=== PATIENT | female | born 1945 | race Caucasian/White ===

== ENCOUNTER → 2021-07-14 13:54 | Outpatient (CLI) | payer MEDICARE, OTHER, SELFPAY ==
--- NOTE | ~2021-07-14 | XR_ITS ---
XR chest 2V 07/14/2021 14:13 Indication: Hypertension Procedure: 2 view chest Comparison: No prior studies for comparison. Findings: There are calcified granulomas in the left midlung. Heart size normal. No focal air space d isease, pulmonary edema, pleural effusion or suspected pneumothorax. The lungs are hyperinflated whic h is consistent with, but not diagnostic of chronic obstructive pulmonary disease. Impression: 1: No acute cardiopulmonary disease. Reviewed, dictated and finalized at location A. Impression: 1: No acute cardiopulmonary disease.
== END ==
PROVIDERS: PCP Family Medicine; Visit Provider Family Medicine
DX: I10 Essential (primary) hypertension (principal)
CPT/HCPCS: 71046

== ENCOUNTER 2021-07-19 09:04 | Outpatient (CLI) | payer MEDICARE, OTHER, SELFPAY ==
--- NOTE | 2021-07-19 09:34 | ECG_ITS ---
Measurements Intervals [place] Rate: 67 P: 66 NC: 160 QRS: 52 QRSD: 93 T: 57 QT: 416 QTc: 442 Interpretive Statements SINUS RHYTHM LEFT VENTRICULAR HYPERTROPHY AND ST-T CHANGE [VOLTAGE CRITERIA PLUS ST/T ABNORMALITY] ABNORMAL ECG NO PREVIOUS ECG AVAILABLE FOR COMPARISON Electronically Signed On 07-19-2021 17:24:50 CDT by Neftali Espinosa M.D.
== END 2021-07-19 09:05 | disposition home or self-care (01) ==
LOC: ANHLAB 09:07
PROVIDERS: PCP Family Medicine; Visit Provider Family Medicine
DX: I10 Essential (primary) hypertension (principal)
CPT/HCPCS: 93005

== ENCOUNTER 2021-09-13 00:50 | Day surgery (SDC) | payer MEDICARE, OTHER, SELFPAY ==
[2021-08-30 13:33] VITALS: BMI 24.2
[2021-09-13 07:31] VITALS: BP 135/67; PULSE 80; RESP 18; TEMP 36.1; O2SAT 100
[2021-09-13] MEDS: LACTATED RINGERS 1,000 ML 150 ML IV CONT (07:42)
--- NOTE | 2021-09-13 07:53 | WPDGICN ---
Assessment and Plan Assessment and plan (1) Colon cancer screening: Code(s): Z12.11 - Encounter for screening for malignant neoplasm of colon Status: Acute Assessment and Plan: Patient presents for screening colonoscopy. Last colonoscopy 10 years ago was unremarkable. Patient appears at average risk for colon polyps. Further recommendations may be given after endoscopy. GI Consult Note Consult date/time: 09/13/21 07:53 HPI: Cele Salcido is a 75 year old female Presents for screening colonoscopy today. Patient reports that her current weight appetite and bowel movements are normal. She denies abdominal pain. She has had no bleeding. Family history is noncontributory. Patient states that she had a unremarkable colonoscopy 10 years ago. She presents today for neoplasia screening. Review of Systems Review of Systems: Review of systems noncontributory. [facility] Past Medical History Medical History (Updated 08/11/21 @ 15:59 by Davin Estrada MD) BMI 25.0-25.9,adult Breast cancer screening by mammogram Chronic neck pain Colon cancer screening Colonoscopy normal [address] Garcia. Episodic lightheadedness Essential hypertension (~04/2021) Chest x-ray 07/14/2021 with calcified granulomas and mild hyperinflation. EKG on 07/19/2021 with sinus rhythm with LVH and nonspecific ST T wave changes. Low back pain Overweight (BMI 25.0-29.9) Plantar fasciitis, bilateral Postmenopausal Rash of neck Seasonal allergic rhinitis Family History Family History (Updated 12/10/18 @ 10:51 by DOCTOR UNKNOWN) Father Family history of cardiovascular disease, Onset Age: 92 Mother Family history of Alzheimer's disease, Onset Age: 95 Social History Social History Smoking status: Never smoker Alcohol intake: current Drinks per week: 7 Alcohol use details: a glass of wine 3-4 times a week Substance use: never Substance use type: does not use Living arrangements: with family Spiritual care concerns: No Meds Home Medications and Allergies Home Medications Medication Instructions Recorded Confirmed Type aspirin 81 mg tablet,delayed 81 mg PO DAILY 04/28/20 08/30/21 History release (Adult Low Dose Aspirin) cholecalciferol (vitamin D3) 50 2,000 unit PO DAILY 04/28/20 08/30/21 History mcg (2,000 unit) capsule cyanocobalamin (vitamin B-12) 1,000 mcg PO DAILY 04/28/20 08/30/21 History 1,000 mcg tablet prenat.vits,molina,[id number]-ifcqf 1 tablet PO DAILY 04/28/20 08/30/21 History vitamin E (dl, acetate) 180 mg 400 unit PO DAILY 04/28/20 08/30/21 History (400 unit) capsule cyclobenzaprine 10 mg tablet 10 mg PO TID PRN muscle spasm #60 06/02/21 08/30/21 Rx tabs naproxen 500 mg tablet (Naprosyn) 500 mg PO BID PRN pain #60 tabs 06/02/21 08/30/21 Rx losartan 100 mg tablet 100 mg PO DAILY #90 tabs 09/12/21 09/13/21 Rx Allergies Allergy/AdvReac Type Severity Reaction Status Date / Time No Known Allergies Allergy Verified 09/13/21 07:30 Vital Signs Vital Signs - 24 hr 09/13/21 07:31 Temperature 97.0 F L Pulse Rate 80 Respiratory Rate 18 Blood Pressure 135/67 Pulse Oximetry 100 Oxygen Delivery Room Air Exam Narrative: Physical exam reveals patient be alert. Vital signs stable. HEENT exam is unremarkable. Patient is anicteric. Lungs are clear to auscultation and percussion. Heart is without murmur or extra sounds. Abdominal exam bowel sounds are present soft nontender with no organomegaly. Digital external rectal exam is normal.
--- NOTE | 2021-09-13 08:00 | WPDANESEPPF ---
Anes - Initial Pre Proc Eval Procedure: Operation Date: 09/13/21 08:30 Proposed Procedures p Screening Colonoscopy - Tristan Agosto MD Date/Time: 09/13/21 08:00 Surgeon: Tristan Agosto MD Pre Op Diagnosis: neoplasm screening Patient Data Age: 75 Gender: F Height: 1.57 m Weight: 58.5 kg Last Vital Signs Temp 36.1 C L 09/13/21 07:31 Pulse 80 09/13/21 07:31 Resp 18 09/13/21 07:31 BP 135/67 09/13/21 07:31 Pulse Ox 100 09/13/21 07:31 O2 Del Method Room Air 09/13/21 07:31 Allergies Allergy/AdvReac Type Severity Reaction Status Date / Time No Known Allergies Allergy Verified 09/13/21 07:30 Home Medications Medication Instructions Recorded Confirmed Type aspirin 81 mg tablet,delayed 81 mg PO DAILY 04/28/20 08/30/21 History release (Adult Low Dose Aspirin) cholecalciferol (vitamin D3) 50 2,000 unit PO DAILY 04/28/20 08/30/21 History mcg (2,000 unit) capsule cyanocobalamin (vitamin B-12) 1,000 mcg PO DAILY 04/28/20 08/30/21 History 1,000 mcg tablet prenat.vits,molina,mzq-ydaa-hlwug 1 tablet PO DAILY 04/28/20 08/30/21 History vitamin E (dl, acetate) 180 mg 400 unit PO DAILY 04/28/20 08/30/21 History (400 unit) capsule cyclobenzaprine 10 mg tablet 10 mg PO TID PRN muscle spasm #60 06/02/21 08/30/21 Rx tabs naproxen 500 mg tablet (Naprosyn) 500 mg PO BID PRN pain #60 tabs 06/02/21 08/30/21 Rx losartan 100 mg tablet 100 mg PO DAILY #90 tabs 09/12/21 09/13/21 Rx Patient hx anesthesia problems: none Family hx anesthesia problems: none Results Review: All pre-operative results and documents have been reviewed as part of the pre-operative evaluation. [facility] Past Medical History Medical History BMI 25.0-25.9,adult Breast cancer screening by mammogram Chronic neck pain Colon cancer screening Colonoscopy normal [address] Garcia. Episodic lightheadedness Essential hypertension (~04/2021) Chest x-ray 07/14/2021 with calcified granulomas and mild hyperinflation. EKG on 07/19/2021 with sinus rhythm with LVH and nonspecific ST T wave changes. Low back pain Overweight (BMI 25.0-29.9) Plantar fasciitis, bilateral Postmenopausal Rash of neck Seasonal allergic rhinitis Family History Family History Father Family history of cardiovascular disease, Onset Age: 92 Mother Family history of Alzheimer's disease, Onset Age: 95 Social History Social History Smoking status: Never smoker Alcohol intake: current Drinks per week: 7 Alcohol use details: a glass of wine 3-4 times a week Substance use: never Substance use type: does not use Living arrangements: with family Spiritual care concerns: No Anes - Eval Final PreProcedure Day of Procedure 09/13/21 08:00 Heart: regular rate and rhythm Lungs: clear to auscultation Neurological: alert and oriented ASA classification: II Emergent: yes Anesthetic plan: proceed Anesthesia type and monitoring: general Results Review: All pre-operative results and documents have been reviewed as part of the pre-operative evaluation. Informed Consent: The patient's anesthetic plan and its attendant risks and benefits were discussed with the patient/family/POA. Questions were solicited and answers provided to the satisfaction of the patient/family/POA.
[2021-09-13 08:45] VITALS: BP 119/56; PULSE 80; RESP 18; O2SAT 100
[2021-09-13 08:55] VITALS: BP 118/53; PULSE 80; RESP 18; O2SAT 100
[2021-09-13 09:05] VITALS: BP 148/84; PULSE 77; RESP 18; O2SAT 100
== END 2021-09-13 09:25 | disposition home or self-care (01) ==
PROVIDERS: PCP Family Medicine; Visit Provider Internal Medicine Gastroenterology
PROC: 0DJD8ZZ Inspection of Lower Intestinal Tract, Via Natural or Artificial Opening Endoscopic (ICD-10-PCS; CPT 45378; principal; 2021-09-13 08:30)
DX: Z12.11 Encounter for screening for malignant neoplasm of colon (principal); K64.8 Other hemorrhoids; Z79.82 Long term (current) use of aspirin; I10 Essential (primary) hypertension
CPT/HCPCS: G0121; J2704; J7120

== ENCOUNTER 2021-11-12 09:25 | Outpatient (CLI) | payer MEDICARE, OTHER, SELFPAY ==
--- NOTE | ~2021-11-12 | DEXA_ITS ---
Bone Density Report Name: KENDY CRAIG Age: 75 Sex: Female Ethnicity: White Date of : 1945 Indication: postmenopausal; screening for osteoporosis; height loss; cancer; hysterectomy; Referring Provider: VENICE JOHNSON Study: Bone densitometry was performed. Exam Date: November 12, 2021 Accession number: [id number] Bone Density: Region BMD T-score Z-score Classification AP Spine(L1-L4) 0.962 -0.8 1.7 Normal Femoral Neck (Left) 0.715 -1.2 0.9 Osteopenia Total Hip (Left) 0.940 0.0 1.8 Normal Femoral Neck (Right) 0.753 -0.9 1.3 Normal Total Hip (Right) 0.935 -0.1 1.8 Normal Total Hip Mean 0.938 -0.1 1.8 Normal World Health Organization criteria for BMD impression classify patients as: Normal (T-score at or above -1.0), Osteopenia (T-score between -1.0 and -2.5), or Osteoporosis (T-score at or below -2.5). 10-year Fracture Risk(1): Major Osteoporotic Fracture 11% Hip Fracture 1.9% Reported Risk Factors: [place] (), Neck BMD=0.715, BMI=24.7 (1) FRAX(R) Version 3.08. Fracture probability calculated for an untreated patient. Fracture probability may be lower if the patient has received treatment. Clinical Information Provided by Patient: Has used the following medications: Vitamin D, Calcium Has the following medical conditions: Cancer, Hysterectomy Patient maximum height was 64 Menopause Age: 40 Onset of menses at age 12 Number of children 2 Impression: The patient has low bone mass, based on the Left Femoral Neck T-score. The patient has an estimated ten-year risk of hip fracture of 1.9% and an estimated ten-year risk of major fracture of 11%, based on the WHO FRAX algorithm. Discussion: BONE DENSITY IS LOW AT ONE OR MORE SKELETAL SITES. This patient's lowest T-score is low at one or more skeletal sites. It meets the World Health Organization's (WHO) criteria for ?low bone mass? (T-score between -1.0 and -2.5). The patient's 10-year risk of fracture as calculated by FRAX is less than the threshold where pharmacological therapy is recommended by the National Osteoporosis Foundation (NOF). However, all treatment decisions require clinical judgment and consideration of individual patient factors, including patient preferences, comorbidities, previous drug use, risk factors not captured in the FRAX model (e.g., frailty, falls, vitamin D deficiency, increased bone turnover, interval significant decline in bone density) and possible under or overestimation of fracture risk by FRAX. The patient should follow a healthful lifestyle (good nutrition with adequate calcium and vitamin D, and appropriate weight-bearing exercise). Follow-Up: Consider repeating this study in 2 to 3 years to reassess this patient's status, or sooner if there is some new clinical indication.
== END 2021-11-12 09:26 | disposition home or self-care (01) ==
LOC: ANHIMG 09:26
PROVIDERS: PCP Family Medicine; Visit Provider Family Medicine
DX: Z78.0 Asymptomatic menopausal state (principal); M85.852 Other specified disorders of bone density and structure, left thigh
CPT/HCPCS: 77080

== ENCOUNTER 2022-02-07 08:20 | Outpatient (CLI) | payer MEDICARE, OTHER, SELFPAY ==
--- NOTE | ~2022-02-07 | XR_ITS ---
EXAMINATION: XR cervical spine 4-5V DATE: 02/07/2022 08:57 INDICATION: Neck pain. TECHNIQUE: 5 views of cervical spine were obtained. COMPARISON: None. FINDINGS: There is 2 mm anterolisthesis of C3 on C4 and C7 on T1. There is 7 degrees levocurvature of cervicothoracic spine. Vertebral body heights are normal. There is severely decreased disc height at C4-C5, moderately decreased disc height at C5-C6, and severely decreased disc height at C6-C7. There is severe uncovertebral joint osteoarthritis on the right at C4-C5 and bilaterally at C5-C6 and C6-C 7. There is multilevel mild to moderate facet joint osteoarthritis. There is mild central canal steno sis at C3-C4, C4-C5, C5-C6, and C6-C7. No prevertebral soft tissue swelling. IMPRESSION: 1. Severe cervical spondylosis. Reviewed, dictated and finalized at location B.
--- NOTE | ~2022-02-07 | XR_ITS ---
EXAMINATION: XR thoracic spine 3V DATE: 02/07/2022 08:57 INDICATION: Thoracic back pain TECHNIQUE: AP, lateral and lateral swimmer's views of the thoracic spine were obtained. COMPARISON: None. FINDINGS: Bone alignment is normal. There is no fracture. There is mild loss of intervertebral disc s pace height at multiple levels in the thoracic spine. Small degenerative osteophytes project from the anterior endplates of multiple vertebral bodies. Moderate cervical spondylosis is noted. IMPRESSION: 1. Moderate thoracic spondylosis without acute findings. Reviewed, dictated and finalized at location A.
--- NOTE | ~2022-02-07 | XR_ITS ---
EXAMINATION: XR lumbar spine min 4V DATE: 02/07/2022 08:57 INDICATION: Low back pain. TECHNIQUE: 5 views of lumbar spine were obtained. COMPARISON: None. FINDINGS: There is 17 degrees levoscoliosis of lumbar spine. There is 5 mm anterolisthesis of L4 on L 5. Vertebral body heights are normal. There is severely decreased disc height at L2-L3, mildly decrea sed disc height at L3-L4, and moderately decreased disc height at L4-L5. There is severe facet joint osteoarthritis in lower lumbar spine. IMPRESSION: 1. Severe lumbar spondylosis. 2. Lumbar levoscoliosis. Reviewed, dictated and finalized at location B.
== END 2022-02-07 08:21 | disposition home or self-care (01) ==
PROVIDERS: PCP Family Medicine; Visit Provider Family Medicine
DX: M47.894 Other spondylosis, thoracic region (principal); M47.896 Other spondylosis, lumbar region; M47.892 Other spondylosis, cervical region
CPT/HCPCS: 72050; 72072; 72110

== ENCOUNTER 2022-02-26 08:46 | Outpatient (CLI) | payer MEDICARE, OTHER, SELFPAY ==
--- NOTE | ~2022-02-26 | MR_ITS ---
EXAMINATION: MR cervical spine wo con DATE: 02/26/2022 09:20 INDICATION: Neck pain. Bilateral cervical radiculitis. TECHNIQUE: Magnetic resonance imaging (MRI) of the cervical spine was performed without intravenous c ontrast. Sequences included sagittal T2-weighted FSE, sagittal T2-weighted FS FSE, sagittal T1-weight ed FSE, axial MERGE, and axial T2-weighted FSE. COMPARISON: Lumbar spine radiographs 02/07/2022 FINDINGS: There is 2 mm anterolisthesis of C3 on C4 and 3 mm anterolisthesis of T1 on T2. Vertebral b jj heights are normal. There is mildly decreased disc height at C3-C4, severely decreased disc heigh t at C4-C5, moderately decreased disc height at C5-C6, and severely decreased disc height at C6-C7 wi th endplate remodeling. The spinal cord signal intensity is normal. The following disc levels are spe cifically discussed: C2-C3: There is a central protrusion. There is no uncovertebral joint osteoarthritis. There is severe right and moderate left facet joint osteoarthritis. There is no neural foraminal stenosis. There is no central canal stenosis. C3-C4: There is a central protrusion. There is moderate right and severe left uncovertebral joint ost eoarthritis. There is severe bilateral facet joint osteoarthritis. There is mild bilateral neural for aminal stenosis. There is mild central canal stenosis. C4-C5: The disc is bulging. There is severe bilateral uncovertebral joint osteoarthritis. There is mo derate bilateral facet joint osteoarthritis. There is mild bilateral neural foraminal stenosis. There is mild central canal stenosis. C5-C6: The disc is bulging. There is severe bilateral uncovertebral joint osteoarthritis. There is mi ld bilateral facet joint osteoarthritis. There is moderate bilateral neural foraminal stenosis. There is mild central canal stenosis. C6-C7: The disc is bulging. There is severe bilateral uncovertebral joint osteoarthritis. There is mo derate bilateral facet joint osteoarthritis. There is moderate bilateral neural foraminal stenosis. T here is mild central canal stenosis. C7-T1: The disc does not extend beyond the endplate margin. There is no uncovertebral joint osteoarth ritis. There is severe bilateral facet joint osteoarthritis. There is mild bilateral neural foraminal stenosis. There is no central canal stenosis. IMPRESSION: 1. Severe cervical spondylosis. Reviewed, dictated and finalized at location A. TING MACHINE FIXER HEAD
== END 2022-02-26 08:47 | disposition home or self-care (01) ==
PROVIDERS: PCP Family Medicine; Visit Provider Family Medicine
DX: M54.2 Cervicalgia (principal); M48.02 Spinal stenosis, cervical region; M47.892 Other spondylosis, cervical region
CPT/HCPCS: 72141

== ENCOUNTER 2022-04-07 12:30 | Outpatient (RCR) | payer MEDICARE, OTHER, SELFPAY ==
--- NOTE | 2022-03-07 09:03 | PTOPEVAL1 ---
Assessment and note entered by Suzanne Carvajal, PT Evaluation Information Diagnosis thoracic pain, lumbar pain, other chronic pain Onset August 2021 Subjective Information gradual increase in pain; no injury or trauma to back; have been to chiropractor for back and neck pain about every 6 weeks or so; x rays report lumbar severe lumbar spondylosis with levoscoliosis and thoracic moderate spondylosis; go to fitness center 2x/wk for weight exercises and ride bicycle and walk 3x/wk, 2-3 miles; Oswestry low back functional score 16% limitation; can do everything at home but the heavier lifting; does things then rests; Reported Pain Level Pain Score Self Report Additional Pain Score Comments pain range of 0-6/10; dull pain--thoracic, scapular, back; decrease pain with advil,2x/day, heat, rest, tennis ball in back for pressure; have naproxen- not really help; increase pain with lifting, when reading and sitting--have pillows in lap; sleeping OK; when first wake up in the morning- feel OK if have not overdone it; Assessment PT Clinical Summary Cele has the diagnosis of thoracic and lumbar pain; She reports chronic issues with back and neck pain that have increased over time, without trauma or injury. Self assessment Oswestry back score is 16% limitation in activity. She is active and does regular fitness exercises at the gym for light resisted exercises, bicycle and walking. Discussed with her aquatic exercises as an option--she has not done them in the past. Cele has a good understanding of activity/rest balance and monitor her activity level to manage her pain. And realizes the importance of exercises and moving with arthritis. Her thoracic and lumbar xrays reports moderate to severe spondylosis and lumbar levoscoliosis. With the evaluation, she has good flexibility of trunk and hips, with slight tightness over cervical rotation; good strength of legs, with decreased scapular and abdominal strength; there are spasms and most tenderness over R thoracic area. Skilled PT services are indicated for modalities to decrease pain; therapeutic exercises to strengthen her hfdhqkcd-msiqyzwx-uzrbmepy areas, to improve positioning and education for progression of HEP and posture. Treatment with emphasis on cervi
--- NOTE | 2022-04-07 13:14 | PTOPDC ---
Assessment and note entered by Suzanne Carvajal, PT Evaluation Information Diagnosis thoracic pain, lumbar pain, other chronic pain Onset August 2021 Subjective Information Cele reports: is pleased with how therapy has been; no pain in her neck for the past week; have been busy and not reading much lately; no problems with driving; continues to do her exercises at home and goes to the fitness center 3-4 x/week using the weight equipment; agrees to discharge from therapy. Reported Pain Level Pain Score 0: Self Report Assessment PT Clinical Summary Cele has received 7 PT sessions. Compared to the initial evaluation: pain is now 0/ 10 in her neck for the past week; no problems with driving, turning her head, reading; increased cervical rotation to the L and is not painful; increase strength of cervical-thoracic musculature; no longer has forward rotation of her R shoulder and trunk in standing; improved posture awareness and indep with HEP. The goals were achieved. Discharge PT services. Plan of Care PT Services Indicated No
== END 2022-04-10 13:29 | disposition home or self-care (01) ==
LOC: ANHPT 12:30
PROVIDERS: PCP Family Medicine; Visit Provider Family Medicine
DX: M54.2 Cervicalgia (principal); M54.6 Pain in thoracic spine; G89.29 Other chronic pain
CPT/HCPCS: 97110; 97140; 97162

== ENCOUNTER 2022-06-13 09:25 | Outpatient (CLI) | payer MEDICARE, OTHER, SELFPAY ==
--- NOTE | ~2022-06-13 | XR_ITS ---
XR knee LT 3V 06/13/2022 09:54 Indication: Chronic knee pain Procedure: 3 views left knee Comparison: No prior studies for comparison. Findings: There is mild-moderate tricompartment osteoarthritis. No fracture, subluxation or dislocati on. No significant joint effusion. Impression: 1: Mild-moderate osteoarthritis of the left knee. Reviewed, dictated and finalized at location L. ERSITY LECTURER Impression: 1: Mild-moderate osteoarthritis of the left knee.
== END 2022-06-13 09:26 | disposition home or self-care (01) ==
PROVIDERS: PCP Family Medicine; Visit Provider Family Medicine
DX: M17.12 Unilateral primary osteoarthritis, left knee (principal); M25.562 Pain in left knee
CPT/HCPCS: 73562

== ENCOUNTER 2023-04-12 07:58 | Emergency (ER) | payer MEDICARE, OTHER, SELFPAY ==
[2023-04-12] VITALS (73 sets, daily range): BP systolic 91–163; BP diastolic 56–88; PULSE 64–208; RESP 12–21; TEMP 36.1–37.2; O2SAT 92–100
--- NOTE | ~2023-04-12 | XR_ITS ---
Portable chest x-ray Comparison: 07/14/2021 Clinical History: Tachycardia Findings: Stable calcified left midlung granuloma. Lungs are otherwise clear. Cardiomediastinal nadine houette is stable. Bones and soft tissues are unremarkable. Impression: No significant abnormality. Reviewed, dictated and finalized at [facility]. UNTS RECEIVABLE BOOKKEEPER Impression: No significant abnormality.
--- NOTE | 2023-04-12 08:19 | ECG_ITS ---
Measurements Intervals [place] Rate: 199 P: [place]: 0 QRS: -35 QRSD: 93 T: 129 QT: 217 QTc: 395 Interpretive Statements SUPRAVENTRICULAR TACHYCARDIA/TYPE UNSPECIFIED CONSIDER INFERIOR WALL MO AGE UNDETERMINED ABNORMAL ECG COMPARED TO ECG 07/19/2021 09:48:22 SVT REPLACES SINUS RHYTHM INFERIOR WALL INFARCTION IS EVIDENT Electronically Signed On 04-12-2023 18:17:13 COMPUTER REPAIR ENGINEER by Neftali Espinosa M.D.
[2023-04-12 08:34] LABS: Basophils Absolute Auto 0.04 K/mm3 (0.00-0.10); Basophils Percent Auto 0.7 % (0.0-1.0); Eosinophils Absolute Auto 0.05 K/mm3 (0.02-0.50); Eosinophils Percent Auto 0.8 % (1.0-6.0); Hematocrit 41.6 % (35.0-42.0); Hemoglobin 13.6 g/dL (11.7-13.8); Immature Granulocyte Absolute 0.02 K/mm3 (0.00-0.00); Immature Granulocyte Percent A 0.3 % (0.0-0.0); Lymphocytes Absolute Auto 1.05 K/mm3 (1.10-4.50); Lymphocytes Percent Auto 17.2 % (18.0-42.0); Mean Corpuscular HGB Conc 32.7 g/dL (32.0-36.0); Mean Corpuscular Hemoglobin 32.5 pg (27.0-31.0); Mean Corpuscular Volume 99.5 fL (78.0-102.0); Mean Platelet Volume 9.8 fl (9.2-11.8); Monocytes Absolute Auto 0.33 K/mm3 (0.10-0.90); Monocytes Percent Auto 5.4 % (2.0-11.0); Neutrophils Absolute Auto 4.6 K/mm3 (1.7-7.2); Neutrophils Percent Auto 75.6 % (50.0-70.0); Platelet Count Result 235 K/mm3 (150-420); Red Blood Count 4.18 M/mm3 (4.20-5.40); White Blood Count 6.1 K/mm3 (4.8-10.8)
[2023-04-12] MEDS: SODIUM CHLORIDE 0.9% IV 1,000 ML 999 ML IV CONT (08:36)
[2023-04-12] MEDS: MIDAZOLAM HCL (*CRX) 2 MG/2 ML VIAL 1 MG IV PUSH (08:56)
[2023-04-12 09:00] LABS: Alanine Aminotransferase 47 U/L (14-59); Albumin Level 3.7 g/dL (3.4-5.0); Alkaline Phosphatase 58 U/L (46-116); Anion Gap 10 mmol/L (8-16); Aspartate Amino Transferase 29 U/L (15-37); Bilirubin,Total 0.4 mg/dL (0.00-1.00); Blood Urea Nitrogen 16 mg/dL (7-18); Calcium 9.3 mg/dL (8.5-10.1); Carbon Dioxide 27 mmol/L (21-32); Chloride 100 mmol/L (98-108); Estimated CRCL calculation 31 ml/min; Estimated Glomerular Filt Rate 50; Glucose 166 mg/dL (70-99); Lipase 41 U/L (16-77); NT Pro B Type Natriuretic Pept 1496 pg/mL (0-450); Osmolality Calculated 289 mOsm/kg (285-295); Potassium 3.8 mmol/L (3.5-5.1); Sodium 137 mmol/L (136-145); Total Protein 7.2 g/dL (6.4-8.2); Troponin I 54.6 ng/L (0.00-60.4)
[2023-04-12 09:04] LABS: D Dimer 0.31 mg/L (0.19-0.50)
[2023-04-12 09:15] LABS: SARS-CoV-2 RNA PCR Negative (Negative)
[2023-04-12 09:18] LABS: Influenza A QL RT-PCR Negative (Negative); Influenza B QL RT-PCR Negative (Negative); RSV RNA, RT-PCR Negative (Negative)
[2023-04-12 09:32] LABS: Thyroid Stimulating Hormone 2.69 uIU/mL (0.36-3.74)
--- NOTE | 2023-04-12 09:39 | ED.NAVMDI ---
HPI - Nausea/Vomiting/Diarrhea General Chief complaint: Nausea/Vomiting/Diarrhea Stated complaint: nausea, dizzy Source: patient and family Mode of arrival: ambulatory Limitations: no limitations History of Present Illness HPI Narrative: this is a 77-year-old female with no significant prior past medical history presents with some nausea and episode of vomiting with a heart rate 203, initial blood pressure systolic in the 90s O2 sats 97% resp rate of 16, denies any chest pain or shortness of breath, no abdominal pain with no dysuria. The patient has no fever chills did have an episode of nausea and vomiting. patient has no history of cardiovascular disease, is non smoker never did smoke and has approximately 5 drinks of wine per week and 2 to 3 cups of coffee per day. MD elicited complaint: nausea Onset (ago): hour(s) Associated nausea: Yes Associated abdominal pain: No Related Data Home Medications Medication Instructions Recorded Confirmed cholecalciferol (vitamin D3) 50 2,000 unit PO DAILY 04/28/20 04/12/23 mcg (2,000 unit) capsule cyanocobalamin (vitamin B-12) 1,000 mcg PO DAILY 04/28/20 04/12/23 1,000 mcg tablet vitamin E (dl, acetate) 180 mg 400 unit PO DAILY 04/28/20 04/12/23 (400 unit) capsule acetaminophen 650 mg 650 mg PO . q.h.s. 02/26/23 04/12/23 tablet,extended release (Tylenol Arthritis Pain) Allergies Allergy/AdvReac Type Severity Reaction Status Date / Time Amitriptyline AdvReac Severe Nausea and Uncoded 04/25/22 08:29 Vomiting Review of Systems Review of Systems: All systems reviewed & are unremarkable except as noted in HPI and below PMFSH Past Medical History Medical History Acute pain of left knee (~05/2022) Znkh-az-mojeixvy osteoarthritis left knee on x-ray on 06/13/2022. At moderate risk for fall (~08/14/22) the patient worries about falling, but has excellent balance and has not fallen BMI 24.0-24.9, adult BMI 25.0-25.9,adult Breast cancer screening by mammogram normal mammogram 07/25/2021. mammogram 09/11/2022 normal. Cervical radiculitis MRI of the cervical spine on 02/26/2022 reveals severe cervical spondylosis Cervical spinal stenosis Chronic anxiety Chronic neck pain X-ray on 02/07/2022 reveals severe cervical spondylosis and facet arthritis with diffuse mild spinal stenosis. Chronic thoracic back pain x-ray on 02/07/2022 reveals moderate degenerative disc disease and arthritis. Colon cancer screening Colonoscopy normal [address] Garcia. normal colonoscopy 09/13/[address] Agosto with no need for repeat. Episodic lightheadedness Essential hypertension (~04/2021) Chest x-ray 07/14/2021 with calcified granulomas and mild hyperinflation. EKG on 07/19/2021 with sinus rhythm with LVH and nonspecific ST T wave changes. Insomnia (~2021) Low back pain X-ray on 02/07/2022 reveals severe spondylosis and facet arthropathy. Osteopenia after menopause (11/12/21) DEXA bone density study on 11/12/2021 reveals T-score -0.8 at the spine with left femoral neck low at -1.2 with left total hip 0.0 with right total hip -0.1. Normal except for mild osteopenia of the left femoral neck. Overweight (BMI 25.0-29.9) Plantar fasciitis, bilateral Postmenopausal Rash of neck Seasonal allergic rhinitis Family History Family History Father Family history of cardiovascular disease, Onset Age: 92 Mother Family history of Alzheimer's disease, Onset Age: 95 Social History Social History Smoking status: Never smoker Alcohol intake: current Drinks per week: 7 Alcohol use details: a glass of wine 3-4 times a week Substance use: never Substance use type: does not use Lack of Transportation: No Lack of Food: Never True Current Housing: I Have Housing Concerned About Future Housin
--- NOTE | 2023-04-12 09:52 | ECG_ITS ---
Measurements Intervals [place] Rate: 78 P: 69 [place]: 161 QRS: 71 QRSD: 93 T: 60 QT: 402 QTc: 460 Interpretive Statements SINUS RHYTHM LEFT VENTRICULAR HYPERTROPHY AND ST-T CHANGE [VOLTAGE CRITERIA PLUS ST/T ABNORMALITY] ABNORMAL ECG COMPARED TO ECG 04/12/2023 08:25:28 SINUS RHYTHM REPLACES SVT WITH SINUS RHYTHM THERE IS NO LONGER EVIDENCE OF PREVIOUS INFERIOR NC Electronically Signed On 04-12-2023 18:17:54 DANCE HALL HOSTESS by Neftali Espinosa M.D.
[2023-04-12 11:31] LABS: Reflex Lactic Acid Yes or No Add Lactic
[2023-04-12 12:19] LABS: Lactic Acid 1.1 mmol/L (0.4-2.0)
[2023-04-12] MEDS: LOSARTAN POTASSIUM 50 MG TABLET PO (16:12)
[2023-04-12 16:39] LABS: Magnesium 1.7 mg/dL (1.8-2.4)
[2023-04-12] MEDS: MAGNESIUM SULF 2 GM/WATER 50ML 2 GM/50 ML BAG IVPB (17:26)
== END 2023-04-12 18:44 | disposition short-term general hospital (02) ==
PROVIDERS: Emergency Provider Emergency Medicine; PCP Family Medicine
DX: I47.10 Supraventricular tachycardia, unspecified (principal); I10 Essential (primary) hypertension; Z79.899 Other long term (current) drug therapy; Z20.822 Contact with and (suspected) exposure to COVID-19
CPT/HCPCS: 36415; 71045; 80053; 83605; 83690; 83735; 83880; 84443; 84484; 85025; 85380; 87637; 92960; 93005; 96361; 96365; 96375; 96376; 99285; A9270; J0153; J2250; J3475; J7030

== ENCOUNTER 2023-08-02 13:30 | Outpatient (RCR) | payer MEDICARE, OTHER, SELFPAY | END 2023-08-13 14:14 | disposition home or self-care (01) | LOC: ANHCPREHAB 13:30 | PROVIDERS: PCP Family Medicine; Visit Provider Family Medicine | DX: Z95.1 Presence of aortocoronary bypass graft (principal) | CPT/HCPCS: 93798 ==

== ENCOUNTER 2023-08-04 10:42 | Emergency (ER) | payer MEDICARE, OTHER, SELFPAY ==
[2023-08-04 10:55] VITALS: BP 173/68; PULSE 63; RESP 16; TEMP 36.3; O2SAT 100
--- NOTE | 2023-08-04 11:16 | ED.GENADULT ---
HPI - General Adult General Chief complaint: Skin/Abscess/Foreign Body Stated complaint: Skin Sore Time Seen by Provider: 08/04/23 11:01 Source: patient, RN notes reviewed and old records reviewed Mode of arrival: ambulatory Limitations: no limitations History of Present Illness HPI narrative: 77-year-old female to [facility] for complaint right mid new pain in the street yesterday. Patient endorses recent open heart surgery, no complications. Patient denies allergies, injury, or prior history with back pain. Patient states she was seen a chiropractor today and was advised she appears she had shingles. Patient in no acute distress. Related Data Home Medications Medication Instructions Recorded Confirmed cholecalciferol (vitamin D3) 50 2,000 unit PO DAILY 04/28/20 06/12/23 mcg (2,000 unit) capsule cyanocobalamin (vitamin B-12) 1,000 mcg PO DAILY 04/28/20 06/12/23 1,000 mcg tablet vitamin E (dl, acetate) 180 mg 400 unit PO DAILY 04/28/20 06/12/23 (400 unit) capsule acetaminophen 650 mg 650 mg PO . q.h.s. 02/26/23 06/12/23 tablet,extended release (Tylenol Arthritis Pain) sacubitril 24 mg-valsartan 26 mg 1 tablet PO BID 04/29/23 06/12/23 tablet (Entresto) aspirin 81 mg tablet,delayed 81 mg PO DAILY 06/12/23 06/12/23 release (Adult Aspirin Regimen) rosuvastatin 40 mg tablet (Crestor) 40 mg PO DAILY 06/12/23 06/12/23 amiodarone 400 mg tablet 400 mg PO DAILY 06/18/23 apixaban 2.5 mg tablet (Eliquis) 5 mg PO BID 06/18/23 ascorbate calcium (vitamin C) 500 500 mg PO DAILY 06/18/23 mg tablet calcium citrate 250 mg PO DAILY 06/18/23 melatonin 10 mg tablet 10 mg PO QHS 06/18/23 potassium chloride 20 mEq 20 meq PO DAILY 06/18/23 tablet,extended release vitamins no.170-iron 1 tablet PO DAILY 06/18/23 fumarate 27 mg-folic acid 1 mg tablet furosemide 40 mg tablet 20 mg PO QAM 06/19/23 hydralazine 25 mg tablet 25 mg PO Q8H 06/19/23 metoprolol succinate 25 mg 12.5 mg PO BID 06/19/23 tablet,extended release 24 hr spironolactone 25 mg tablet 12.5 mg PO DAILY 06/19/23 Allergies Allergy/AdvReac Type Severity Reaction Status Date / Time Amitriptyline AdvReac Severe Nausea and Uncoded 04/25/22 08:29 Vomiting Review of Systems Review of Systems: All systems reviewed & are unremarkable except as noted in HPI and below Constitutional: Constitutional: Reports no additional constitutional complaints Eyes: Eyes: Reports no additional eye complaints ENT: Reports system reviewed and no additional complaints, except as documented Cardiovascular: Cardiovascular: Reports no additional cardiovascular complaints, Denies chest pain and Denies dyspnea Respiratory: Respiratory: Reports no additional respiratory complaints, Denies cough and Denies dyspnea Musculoskeletal: Musculoskeletal: Reports as per HPI and Reports back pain ( intermittent and Sharp per patient) Integumentary/Breasts: Skin/Breast: Reports rash ( Midback erythematous, clearly unilateral) and Reports skin pain ( at rash; a patient reports pain as sharp, stabbing, intermittent) Neurologic: Reports system reviewed and no additional complaints, except as documented Psychiatric: Psychiatric: Reports no additional psychiatric complaints PMFSH Past Medical History Medical History Acute pain of left knee (~05/2022) [id number] osteoarthritis left knee on x-ray on 06/13/2022. At moderate risk for fall (~08/14/22) the patient worries about falling, but has excellent balance and has not fallen BMI 24.0-24.9, adult BMI 25.0-25.9,adult Breast cancer screening by mammogram normal mammogram 07/25/2021. mammogram 09/11/2022 normal. Cardiomyopathy Global hypokinesis with ejection fraction between 30 and 35% with mild LVH on echo on 04/13/2023. Cervical radiculitis MRI of the cervical spine on 02/26/2022 reveals severe cervical spondylosis Cervical spinal steno
== END 2023-08-04 11:35 | disposition home or self-care (01) ==
PROVIDERS: Emergency Provider Nurse Practitioner Family; PCP Family Medicine
DX: B02.9 Zoster without complications (principal); I25.10 Atherosclerotic heart disease of native coronary artery without angina pectoris; I10 Essential (primary) hypertension; E78.2 Mixed hyperlipidemia; M85.80 Other specified disorders of bone density and structure, unspecified site; I48.0 Paroxysmal atrial fibrillation; I42.9 Cardiomyopathy, unspecified; Z79.82 Long term (current) use of aspirin
CPT/HCPCS: 99213; G0463

== ENCOUNTER 2023-11-23 14:00 | Emergency (ER) | payer MEDICARE, OTHER, SELFPAY ==
--- NOTE | ~2023-11-23 | XR_ITS ---
EXAMINATION: XR knee LT 3V DATE: 11/23/2023 14:40 INDICATION: Left knee pain and swelling. TECHNIQUE: 3 views of left knee were obtained. COMPARISON: Left knee radiographs 06/13/2022 FINDINGS: Bone alignment is normal. No fracture. There is moderate osteoarthritis of medial compartme nt and mild osteoarthritis of lateral and patellofemoral compartments. There is a moderate-sized knee joint effusion. There are surgical clips in the medial soft tissues. IMPRESSION: 1. Moderate left knee osteoarthritis. 2. Moderate-sized knee joint effusion. Reviewed, dictated and finalized at location A.
[2023-11-23 14:03] VITALS: BP 156/69; PULSE 65; RESP 18; TEMP 36.4; O2SAT 100
--- NOTE | 2023-11-23 15:03 | ED.GENADULT ---
HPI - General Adult General Chief complaint: Extremity Injury, Lower Stated complaint: knee went out Time Seen by Provider: 11/23/23 14:49 History of Present Illness HPI narrative: 77 y/o female presents with increased left knee pain that started 1 week ago. patient states the pain has been increasing. patient denies injury or trauma to the knee. patient states she was walking daily and then started having the pain. patient has an appointment with orthopedics next sunday but states tylenol is not strong enough. patient already has a knee immobilizer and cane. no other complaints. Onset (ago): week(s) (1) Treatments prior to arrival: cold therapy and splint Related Data Home Medications Medication Instructions Recorded Confirmed cholecalciferol (vitamin D3) 50 2,000 unit PO DAILY 04/28/20 10/31/23 mcg (2,000 unit) capsule cyanocobalamin (vitamin B-12) 1,000 mcg PO DAILY 04/28/20 10/31/23 1,000 mcg tablet vitamin E (dl, acetate) 180 mg 400 unit PO DAILY 04/28/20 10/31/23 (400 unit) capsule acetaminophen 650 mg 650 mg PO . q.h.s. 02/26/23 10/31/23 tablet,extended release (Tylenol Arthritis Pain) sacubitril 24 mg-valsartan 26 mg 1 tablet PO BID 04/29/23 10/31/23 tablet (Entresto) aspirin 81 mg tablet,delayed 81 mg PO DAILY 06/12/23 10/31/23 release (Adult Aspirin Regimen) rosuvastatin 40 mg tablet (Crestor) 40 mg PO DAILY 06/12/23 10/31/23 apixaban 2.5 mg tablet (Eliquis) 5 mg PO BID 06/18/23 10/31/23 ascorbate calcium (vitamin C) 500 500 mg PO DAILY 06/18/23 10/31/23 mg tablet calcium citrate 250 mg PO DAILY 06/18/23 10/31/23 melatonin 10 mg tablet 10 mg PO QHS 06/18/23 10/31/23 vitamins no.170-iron 1 tablet PO DAILY 06/18/23 10/31/23 fumarate 27 mg-folic acid 1 mg tablet spironolactone 25 mg tablet 12.5 mg PO DAILY 06/19/23 10/31/23 loratadine 10 mg tablet (Claritin) 10 mg PO DAILY PRN allergic 09/04/23 10/31/23 symptoms metoprolol succinate 50 mg 50 mg PO BID 09/04/23 10/31/23 tablet,extended release 24 hr Allergies Allergy/AdvReac Type Severity Reaction Status Date / Time Amitriptyline AdvReac Severe Nausea and Uncoded 04/25/22 08:29 Vomiting Review of Systems Review of Systems: All systems reviewed & are unremarkable except as noted in HPI and below Musculoskeletal: Musculoskeletal: Reports arthralgias and Reports joint swelling [facility] Past Medical History Medical History (Updated 11/23/23 @ 15:09 by Santos Echavarria, ALYSSIA) Acute pain of left knee (~05/2022) [id number] osteoarthritis left knee on x-ray on 06/13/2022. Anemia (~08/27/23) WBC 3.0, hemoglobin 11.6, hematocrit 34.9, platelets 207 on 08/27/2023. At low risk for fall At moderate risk for fall (~08/14/22) the patient worries about falling, but has excellent balance and has not fallen BMI 24.0-24.9, adult BMI 25.0-25.9,adult Breast cancer screening by mammogram normal mammogram 07/25/2021. mammogram 09/11/2022 normal. Normal mammogram 10/17/2023. Cardiomyopathy Global hypokinesis with ejection fraction between 30 and 35% with mild LVH on echo on 04/13/2023. echo 09/18/2023 with ejection fraction 45-50% with [id number] AVR, mild MVR and TVR. Cervical radiculitis MRI of the cervical spine on 02/26/2022 reveals severe cervical spondylosis Cervical spinal stenosis Chronic anxiety Chronic neck pain X-ray on 02/07/2022 reveals severe cervical spondylosis and facet arthritis with diffuse mild spinal stenosis. Chronic thoracic back pain x-ray on 02/07/2022 reveals moderate degenerative disc disease and arthritis. Colon cancer screening Colonoscopy normal [address] Garcia. normal colonoscopy 09/13/[address] Agosto with no need for repeat. Coronary artery disease involving [place] heart without angina pectoris (~05/21/23) diffuse severe CAD on cardiac catheterization 05/21/2023 with 80% lesion of the LAD, 90% lesion of the 1st diagonal, 70-80% lesion of the obtuse marginal, 70-80% lesion of the RC
[2023-11-23 15:25] VITALS: BP 131/60; PULSE 64; RESP 15; TEMP 36.4; O2SAT 100
== END 2023-11-23 15:27 | disposition home or self-care (01) ==
PROVIDERS: Emergency Provider Nurse Practitioner Family; PCP Family Medicine
DX: M25.462 Effusion, left knee (principal); I42.9 Cardiomyopathy, unspecified; I25.10 Atherosclerotic heart disease of native coronary artery without angina pectoris; I11.9 Hypertensive heart disease without heart failure; I48.0 Paroxysmal atrial fibrillation; E03.9 Hypothyroidism, unspecified; E78.2 Mixed hyperlipidemia; E66.3 Overweight; M85.80 Other specified disorders of bone density and structure, unspecified site; Z68.23 Body mass index [BMI] 23.0-23.9, adult; Z95.1 Presence of aortocoronary bypass graft; Z86.2 Personal history of diseases of the blood and blood-forming organs and certain disorders involving the immune mechanism; Z79.01 Long term (current) use of anticoagulants; Z79.82 Long term (current) use of aspirin; Z79.899 Other long term (current) drug therapy; M17.12 Unilateral primary osteoarthritis, left knee
CPT/HCPCS: 73562; 99283

== ENCOUNTER 2024-04-20 13:40 | Emergency (ER) | payer MEDICARE, OTHER, SELFPAY ==
[2024-04-20 13:50] VITALS: BP 113/57; PULSE 73; RESP 16; TEMP 36.6; O2SAT 100
--- NOTE | 2024-04-20 14:05 | ED.URI ---
HPI - URI/Sore Throat General Chief Complaint: Upper Respiratory Infection Stated Complaint: cough, cold, sweat History of Present Illness HPI Narrative: patient is a 78-year-old female, past medical history significant for heart disease, hypertension and hypothyroidism, presents to [facility] with 7-8 day history of URI symptoms, including sinus congestion, sinus pressure, nasal discharge postnasal drip and a slight cough. She denies OCD chest pain shortness of breath. She states that her nasal discharge was initially clear but has since become thickened yellow. Last night she felt chilled awoke up this morning sweating. She believes she may have her have fever but has not checked her temperature to confirm. She has been taking Tylenol twice a day the past few days and feels that that had does help her symptoms. She denies any additional associated Related Data Home Medications ?Medication ?Instructions ?Recorded ?Confirmed ?Last Taken ?Type cholecalciferol (vitamin D3) 50 2,000 unit PO DAILY 04/28/20 04/08/24 09/12/21 History mcg (2,000 unit) capsule cyanocobalamin (vitamin B-12) 1,000 mcg PO DAILY 04/28/20 04/08/24 09/12/21 History 1,000 mcg tablet vitamin E (dl, acetate) 180 mg 400 unit PO DAILY 04/28/20 04/08/24 09/12/21 History (400 unit) capsule acetaminophen 650 mg 650 mg PO . q.h.s. 02/26/23 04/08/24 Unknown History tablet,extended release (Tylenol Arthritis Pain) sacubitril 24 mg-valsartan 26 mg 1 tablet PO BID 04/29/23 04/08/24 Unknown History tablet (Entresto) aspirin 81 mg tablet,delayed 81 mg PO DAILY 06/12/23 04/08/24 Unknown History release (Adult Aspirin Regimen) rosuvastatin 40 mg tablet (Crestor) 40 mg PO DAILY 06/12/23 04/08/24 Unknown History apixaban 2.5 mg tablet (Eliquis) 5 mg PO BID 06/18/23 04/08/24 Unknown History ascorbate calcium (vitamin C) 500 500 mg PO DAILY 06/18/23 04/08/24 Unknown History mg tablet calcium citrate 250 mg PO DAILY 06/18/23 04/08/24 Unknown History melatonin 10 mg tablet 10 mg PO QHS 06/18/23 04/08/24 Unknown History vitamins no.170-iron 1 tablet PO DAILY 06/18/23 04/08/24 Unknown History fumarate 27 mg-folic acid 1 mg tablet spironolactone 25 mg tablet 12.5 mg PO DAILY 06/19/23 04/08/24 Unknown History loratadine 10 mg tablet (Claritin) 10 mg PO DAILY PRN allergic 09/04/23 04/08/24 Unknown History symptoms metoprolol succinate 50 mg 50 mg PO BID 09/04/23 04/08/24 Unknown History tablet,extended release 24 hr Allergies Allergy/AdvReac Type Severity Reaction Status Date / Time Amitriptyline AdvReac Severe Nausea and Uncoded 04/25/22 08:29 Vomiting Review of Systems Constitutional: Comments: refer HPI ENT: Comments: refer to HPI REPLACED BY [facility] Past Medical History Medical History (Updated 04/20/24 @ 14:10 by CAROL Abbasi) Lipoma of arm (~10/31/23) 4 cm lipoma right upper arm over biceps area At low risk for fall Medicare annual wellness visit, subsequent Anemia (~08/27/23) WBC 3.0, hemoglobin 11.6, hematocrit 34.9, platelets 207 on 08/27/2023. hemoglobin normal at 12.0 With iron 101, 37% saturation and ferritin 121, vitamin B12 1500 1, folic acid 16.3 on 11/27/2023. WBC 2.9, hemoglobin 12.5, platelets 172 with MCV 103.1 on 03/12/2024. Hypothyroidism (acquired) (~05/15/23) TSH elevated at 6.9 with free T4 1.24 in the ER on 05/15/2023. TSH 15.02 on 08/27/2023. TSH 0.4 with free T4 1.4 on 11/27/2023. Herpes zoster (08/03/23) right lower thoracic T10 dermatome starting 08/03/2023 treated 08/04/2023. Paroxysmal atrial fibrillation (06/04/23) after bypass surgery Coronary artery disease involving [place] heart without angina pectoris (~05/21/23) diffuse severe CAD on cardiac catheterization 05/21/2023 with 80% lesion of the LAD, 90% lesion of the 1st diagonal, 70-80% lesion of the obtuse marginal, 70-80% lesion of the RCA. Plan CABG. Mixed hyperlipidemia total cholesterol 231, triglycerides 53, HDL excellent at 74 and LDL elevated at 146 on 05/21/2023.Cholesterol 163, HDL 53, triglycerides 91, LDL 91 with ratio 3.1 on 08/27/2023. Cholesterol 161, triglycerides 97, HDL 56, LDL 86 with ratio 2.9 on 03/12/2024. Elevated TSH (05/15/23) TSH elevated at 6.9 with free T4 1.24 in the ER on 05/15/2023. Diastolic dysfunction grade 2 diastolic dysfunction on echocardiogram 04/13/2023. Cardiomyopathy Global hypokinesis with ejection fraction between 30 and 35% with mild LVH on echo on 04/13/2023. echo 09/18/2023 with ejection fraction 45-50% with [id number] AVR, mild MVR and TVR. PSVT (paroxysmal supraventricular tachycardia) (~04/12/23) Echocardiogram 04/13/2023 with mild LVH with grade 2 diastolic dysfunction, global hypokinesis with ejection fraction of 30-35% with [id number] aortic valve regurgitation. At moderate risk for fall (~08/14/22) the patient worries about falling, but has excellent balance and has not fallen Chronic anxiety Acute pain of left knee (~05/2022) Txyo-yf-rqzqpozt osteoarthritis left knee on x-ray on 06/13/2022. uric acid 3.3 on 11/27/2023. Cervical radiculitis MRI of the cervical spine on 02/26/2022 reveals severe cervical spondylosis Cervical spinal stenosis Insomnia (~2021) BMI 24.0-24.9, adult Chronic thoracic back pain x-ray on 02/07/2022 reveals moderate degenerative disc disease and arthritis. Osteopenia after menopause (11/12/21) DEXA bone density study on 11/12/2021 reveals T-score -0.8 at the spine with left femoral neck low at -1.2 with left total hip 0.0 with right total hip -0.1. Normal except for mild osteopenia of the left femoral neck. DEXA scan 03/06/2023 with T-score -0.8 at the spine and -1.5 at the left hip. Postmenopausal Overweight (BMI 25.0-29.9) Essential hypertension (~04/2021) Chest x-ray 07/14/2021 with calcified granulomas and mild hyperinflation. EKG on 07/19/2021 with sinus rhythm with LVH and nonspecific ST T wave changes. Low back pain X-ray on 02/07/2022 reveals severe spondylosis and facet arthropathy. BMI 25.0-25.9,adult Chronic neck pain X-ray on 02/07/2022 reveals severe cervical spondylosis and facet arthritis with diffuse mild spinal stenosis. Breast cancer screening by mammogram normal mammogram 07/25/2021. mammogram 09/11/2022 normal. Normal mammogram 10/17/2023. Plantar fasciitis, bilateral Colon cancer screening Colonoscopy normal [address] Garcia. normal colonoscopy 09/13/[address] Agosto with no need for repeat. Episodic lightheadedness carotid Doppler study 05/21/2023 unremarkable. Seasonal allergic rhinitis Surgical History Surgical History S/P CABG x 3 (06/04/23) Family History Family History Father Family history of cardiovascular disease, Onset Age: 92 Hypertension HLD (hyperlipidemia) Mother Family history of Alzheimer's disease, Onset Age: 95 Social History Social History Smoking status: Never smoker Alcohol intake: former Substance use: never Substance use type: does not use Lack of Transportation: No Lack of Food: Never True Current Housing: I Have Housing Concerned About Future Housing: No Difficulty Paying Gas/Electric Bills: No Difficulty Paying for Meds: No Currently Unemployed: No Education: Trade/Vocational Certificate Difficulty w/ Childcare or Family Care: No Living arrangements: with family Spiritual care concerns: No Exam Const: General: healthy appearing, no acute distress and alert Nutritional Appearance: well nourished Orientation/consciousness: patient oriented x3 Limitations: no limitations HENMT: Head: normal to inspection Ears: external ears normal, TM's normal bilaterally and EAC's normal Face/Nose/Sinus: Nasal discharge present ( yellow nasal discharge, nasal mucosa is erythematous and swollen) Face and sinus: sinus tenderness frontal, ethmoid and maxillary Mouth: Yes Normal oral and palatal mucosa present Throat: posterior oropharynx normal and uvula midline Eyes: Conjunctivae: conjunctivae normal Pupils: Equal, round and reactive pupils present EOM: EOMs intact bilaterally Direct Ophthalmoscopy: no photophobia Neck: Neck: normal visual inspection, no lymphadenopathy and no meningeal signs Resp: Effort & Inspection: normal respiratory effort Auscultation: clear to auscultation bilaterally Cardio: Rate: regular rate Rhythm: regular rhythm Back/Spine/Pelvis: Back: no CVA tenderness Skin: General skin exam: normal color Rashes: no rashes Wounds: no wounds Neuro: General: patient oriented x3, moves all extremities, no meningeal signs, no focal motor deficits and CN's II-XI intact bilaterally Cranial nerves: Yes Nystagmus not present Speech: normal speech Gait exam (Neuro): Normal gait present Extrem: General: normal to inspection, no clubbing, cyanosis or edema and no pedal edema Psych: Mental Status: mental status grossly normal Course Course Emergency Course: plan to treat empirically for acute sinusitis, Augmentin and Flonase with [id number] Tylenol for discomfort. Close PCP follow-up in 3 days if symptoms not improving, ER if condition worsens in any way. Patient is agreeable with plan Level of Care: Express Care Visit (00061) Vital Signs Vital signs: Vital Signs Temperature 36.6 C 04/20/24 13:50 Pulse Rate 73 04/20/24 13:50 Respiratory Rate 16 04/20/24 13:50 Blood Pressure 113/57 L 04/20/24 13:50 Pulse Oximetry 100 04/20/24 13:50 Oxygen Delivery Room Air 04/20/24 13:50 Temperature 36.6 C 04/20/24 13:50 Pulse Rate 73 04/20/24 13:50 Respiratory Rate 16 04/20/24 13:50 Blood Pressure 113/57 L 04/20/24 13:50 Pulse Oximetry 100 04/20/24 13:50 Oxygen Delivery Room Air 04/20/24 13:50 MDM - URI/Sore Throat MDM Narrative Medical decision making narrative: Augmentin and Flonase Differential Diagnosis Differential diagnosis: Likely upper respiratory infection, otitis media, sinusitis, viral infection and bronchitis Discharge Plan Discharge Clinical Impression: Acute bacterial sinusitis Patient Disposition: Home, Self-Care Condition: Stable Instructions: Antibiotic Form, Sinusitis (ED) Additional Instructions: REST, PUSH FLUIDS, COMPLETE ANTIBIOTICS PRESCRIBED. TAKE WITH A DICT-[id number] PROBIOTIC TO REDUCE GI SIDE EFFECTS. USE FLONASE PRESCRIBED, FOLLOW-UP WITH YOUR PRIMARY DOCTOR IN 3 DAYS IF SYMPTOMS NOT IMPROVING, ER IF THE CONDITION WORSENS IN ANY WAY Patient Language: [place] Prescriptions: New amoxicillin-pot clavulanate 875-125 mg tablet 1 tablet PO Q12H Qty: 20 0RF fluticasone propionate 50 mcg/actuation spray,suspension 2 spray intranasal DAILY Qty: 16 0RF Rx Instructions: administer into each nostril No Action valacyclovir 1 gram tablet 1,000 mg PO TID Qty: 21 0RF cyanocobalamin (vitamin B-12) 1,000 mcg tablet 1,000 mcg PO DAILY cholecalciferol (vitamin D3) 50 mcg (2,000 unit) capsule 2,000 unit PO DAILY vitamin E (dl, acetate) 400 unit capsule 400 unit PO DAILY acetaminophen [Tylenol Arthritis Pain] 650 mg tablet extended release 650 mg PO . q.h.s. metoprolol succinate 50 mg tablet extended release 24 hr 50 mg PO BID Patient Comments: prescribed by Cardiology levothyroxine 50 mcg tablet 50 mcg PO DAILY Qty: 30 11RF Rx Instructions: take tablet with water only without any other medication or food. loratadine [Claritin] 10 mg tablet 10 mg PO DAILY PRN (Reason: allergic symptoms) rosuvastatin [Crestor] 40 mg tablet 40 mg PO DAILY Patient Comments: started by [employer] intelligence developer during hospitalization. aspirin [Adult Aspirin Regimen] 81 mg tablet,delayed release (DR/EC) 81 mg PO DAILY zolpidem [Ambien] 10 mg tablet 10 mg PO QHS PRN (Reason: insomnia) Qty: 30 5RF hydrocodone-acetaminophen 5-325 mg tablet 1 tablet PO Q6H PRN (Reason: pain) Qty: 14 0RF Entresto 24-26 mg tablet 1 tablet PO BID Patient Comments: started by [employer] developer 04/18/2023. calcium citrate 250 mg calcium tablet 250 mg PO DAILY Eliquis 2.5 mg tablet 5 mg PO BID Patient Comments: started during hospitalization melatonin 10 mg tablet 10 mg PO QHS PNV no.170-iron fum-folic acid 27 mg iron- 1 mg tablet 1 tablet PO DAILY ascorbate calcium (vitamin C) 500 mg tablet 500 mg PO DAILY spironolactone 25 mg tablet 12.5 mg PO DAILY Follow-up/Referrals: Davin Estrada MD [Primary Care Provider] - Time of Disposition: 14:10
--- OUTSIDE RECORDS SUMMARY | 2024-04-27 15:44 | XMS_ITS | Encounter Summary ---
Author Organization [facility] Address [facility] [facility] [place] [address] [place] [address] Care Team Providers Care Registered Vascular Technologist (Rvt) Name Role Phone Venice Estrada MD Primary Care Provider [phone] Lee Villaseñor MD Unavailable Darell Garcia MD Unavailable [phone] Jun Oscar NP Unavailable [phone] Judah House MD Unavailable [phone] Reason for Visit * Reason Comments Follow Up Coronary Artery Disease Encounter Details Date Type Department Care Team (Late st Contact Info) Description 02/12/2024 1:30 PM CDT Office Visit [facility] [address] [place] [id number] Chantell Dominguez APRN, STAMP MOUNTER-C [address] [facility] [address] [place] [address] Follow Up; Coronary Artery Disease Social History Tobacco Use Types Packs/Day Years Used Date Smoking Tobacco: Never Passive Smoke Exposure: Never Smokeless Tobacco: Never Alcohol Use Standard Drinks/Week Comments Not Currently 0 (1 standard drink = 0.6 oz pur e alcohol) occasional wine [facility] Utilities Answer Date Recorded In the past 12 months has th e electric, gas, oil, or water company threatened to shut off services in your home? No 06/06/2023 Humiliation, Afraid, Rape, and Kick questionnair e Answer Date Recorded Within the last year, have y ou been afraid of your partner or ex-partner? No 06/06/2023 Within the last year, have y ou been humiliated or emotionally abused in other ways by your partner or ex-partner? No Within the last year, have y ou been kicked, hit, slapped, or otherwise physically hurt by your partner or ex-partner? No 06/06/2023 Within the last year, have y ou been raped or forced to have any kind of sexual activity by your partner or ex-partner? No 06/06/2023 Overall Financial Resource Strain (CARDIA) Answe r Date Recorded How hard is it for you to pa y for the very basics like food, housing, medical care, and heating? Not hard at all 06/06/2023 [facility] - Occupational Stress Questionnaire Answer Date Recorded Do you feel stress - tense, restless, nervous, or anxious, or unable to sleep at night because your mind is troubled all the time - these days? Not at all 04/27/2023 Hunger Vital Sign Answer Date Recorded Within the past 12 months, y ou worried that your food would run out before you got the money to buy more. Never true 06/06/19 24 Within the past 12 months, t he food you bought just didn't last and you didn't have money to get more. Never true 06/06/2023 PRAPARE - Transportation Answer Date Re corded In the past 12 months, has l ack of transportation kept you from medical appointments or from getting medications? No 05/24 In the past 12 months, has l ack of transportation kept you from meetings, work, or from getting things needed for daily living? No 06/06/2023 Housing Stability Vital Sign Answer Michael e Recorded In the last 12 months, was t here a time when you were not able to pay the mortgage or rent on time? No 06/06/2023 In the last 12 months, how many places have you lived? 1 06/06/2023 In the last 12 months, was t here a time when you did not have a steady place to sleep or slept in a custodial (including now)? 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 Gender Identity Not on file Sexual Orientation Not on file documented as of this encounter Last Filed Vital Signs Vital Sign Reading Time Taken Comments Blood Pressure 136/72 02/12/2024 11:41 AM CDT Pulse 65 02/12/2024 11:41 AM CDT Temperature - - Respiratory Rate 16 02/12/2024 11:41 AM CDT Oxygen Saturation 98% 02/12/2024 11:41 AM CDT Inhaled Oxygen Concentration - - Weight 61.7 kg (136 lb) 02/12/2024 11:41 AM CDT Height 160 cm (5' 3 ) 02/12/2024 11:41 AM CDT Body Mass Index 24.09 02/12/2024 11:41 AM CDT documented in this encounter Functional Status * Are you deaf or do you have serious difficulty hearing Answer Date of Assessment Author Status No 06/06/2023 4:01 AM Love Bailon RN Active * Are you blind or do you have serious difficulty seeing, even when wearing glasses? Answer Date of Assessment Author Status No 06/06/2023 4:01 AM Love Bailon RN Active * Do you have serious difficulty walking or climbing stairs? Answer Date of Assessment Author Status No 06/06/2023 4:01 AM Love Bailon RN Active * Do you have difficulty dressing or bathing? Answer Date of Assessment Author Status No 06/06/2023 4:01 AM Love Bailon RN Active * Because of a physical, mental, or emotional condition, do you have difficulty doing errands alone such as visiting a doctor's office or shopping? Answer Date of Assessment Author Status No 06/06/2023 4:01 AM Love Bailon RN Active documented as of this encounter Mental Status * Because of a physical, mental, or emotional condition, do you have serious difficulty concentrating, remembering, or making decisions? Answer Entry Date Author Status No 06/06/2023 4:01 AM Love Bailon RN Active documented in this encounter Progress Notes * Chantell Dominguez APRN, NP-C - 02/12/2024 1:30 PM CDT FROM: Chantell Dominguez APRN, NP-C, collaborating physician Judah House M.D. RE: eCle Salcido : 1945 Reason for Visit: Follow Up and Coronary Artery Disease History of Present Illness: Ms. Salcido is a pleasant 78-year-old female seen in the cardiology clinic today for a six month followup visit. She has a history of coronary artery disease s/p CABG x 3 on 06/05/2023, LV dysfunction (LVEF 35% in 04/14, 45-50% in 09/13), postoperative atrial fibrillation, SVT, aortic and mitral valveregurgitation, hypertension, and hyperlipidemia. She reports that she is doing reasonably well froma cardiac standpoint. She denies any anginal chest pain, shortness of breath, or dyspnea upon exertion. She continues to exercise, walking 3-4 times a week and biking and using machines twice a week. She denies any claudication. She denies any overt symptoms of congestive heart failure such as paroxysmal nocturnal dyspnea or orthopnea. She has chronic left lower extremity edema since her bypass grafting. She denies any worsening since stopping furosemide this summer. She has no palpitations, lightheadedness, or syncope. She denies signs and symptoms of CVA or TIA. She seems to be tolerating her present medicationswell without reported side effects. She denies signs of bleeding. Evaluation during the clinic visit included an EKG which confirmed the presence of sinus rhythm at a rate of 65 beats per minute. Recommendations/Plan: Ms. Salcido's cardiac status appears clinically stable without ongoing anginal chest pain, symptoms of congestive heart failure, or signs of an underlying arrhythmia. Continued medical therapy and aggressive cardiac risk factor modification seem most appropriate at the present time. I have recommended the following to Ms. Salcido: CAD s/p CABG. She denies any symptoms consistent with myocardial ischemia. She will continue her current medications. LV Dysfunction. Her LVEF improved to 45-50% on her last echocardiogram in August. She denies any symptoms of CHF, and appears euvolemic upon exam. She will continue her metoprolol succinate, Entresto, and spironolactone. She does have left lower extremity edema. Encouraged her to wear compression stockings. Valvular Heart Disease. She had mild to moderate aortic regurgitation and mild mitral regurgitationon her last echocardiogram. She is asymptomatic. She does not have a significant murmur upon exam. We will plan on rechecking an echocardiogram in a couple years. Postoperative Atrial Fibrillation, SVT. She is in sinus rhythm in the office today. Her heart rate is well-controlled with metoprolol. She is anticoagulated with Eliquis. She will continue to follow-up with electrophysiology. Hypertension. Her blood pressure is well-controlled in the office today. She tells me at home her readings are typically 120-130 mmHg systolic. She will continue current medications. Hyperlipidemia. She is currently treated with rosuvastatin and denies reported side effects. An LDLless than 70 is recommended. Her most recent lipid panel from 08/27/2023 demonstrated inadequate control with a total cholesterol 163, LDL 91, HDL 53, triglycerides 91. She has a lipid panel due with her primary care office next month. If her LDL still remains greater than goal, I would recommend adding Zetia. We will plan to see Ms. Salcido in one year. I have encouraged her to contact me in the meantime should she have any questions or problems. Medications: Current Outpatient Medications: Acetaminophen (TYLENOL ARTHRITIS PAIN OR), Take 2 tablets by mouth as needed (nightly for arthritispain)., Disp: , Rfl: aspirin EC (ECOTRIN) 81 MG tablet, Take 1 tablet (81 mg total) by mouth daily., Disp: , Rfl: bisacodyl EC (DULCOLAX) 5 MG Tab EC tablet, Take 2 tablets (10 mg total) by mouth daily as needed (.). at bedtime., Disp: , Rfl: Calcium Citrate 250 MG Tab, Take 2 tablets by mouth daily., Disp: , Rfl: ELIQUIS 5 MG tablet, TAKE 1 TABLET(5 MG) BY MOUTH TWICE DAILY, Disp: 60 tablet, Rfl: 6 levothyroxine (SYNTHROID) 50 MCG tablet, Take 1 tablet (50 mcg total) by mouth every morning., Disp: , Rfl: melatonin 10 MG tablet, Take 1 tablet (10 mg total) by mouth nightly as needed for Sleep., Disp: , Rfl: metoprolol succinate ER (TOPROL-XL) 50 MG 24 hr tablet, Take 1 tablet (50 mg total) by mouth 2 (two) times daily., Disp: 180 tablet, Rfl: 3 rosuvastatin (CRESTOR) 40 MG tablet, Take 1 tablet (40 mg total) by mouth nightly at bedtime., Disp: 90 tablet, Rfl: 3 sacubitril-valsartan (ENTRESTO) 24-26 MG tablet, take 1 tablet by mouth twice daily, Disp: 180 tablet, Rfl: 3 spironolactone (ALDACTONE) 25 MG tablet, Take 0.5 tablets (12.5 mg total) by mouth daily., Disp: 45tablet, Rfl: 3 vitamin B-12 (CYANOCOBALAMIN) 500 MCG tablet, Take 1 tablet (500 mcg total) by mouth daily., Disp: , Rfl: vitamin C (ASCORBIC ACID) 500 MG tablet, Take 2 tablets (1,000 mg total) by mouth daily., Disp: , Rfl: Vitamin D3 (CHOLECALCIFEROL) 50 mcg tablet, Take 1 tablet (50 mcg total) by mouth daily., Disp: , Rfl: vitamin E 180 MG (400 UNIT) capsule, Take 1 capsule (400 Units total) by mouth daily., Disp: , Rfl: zolpidem (AMBIEN) 10 MG tablet, Take 0.5 tablets (5 mg total) by mouth nightly as needed., Disp: , Rfl: Review of patient's allergies indicates: No Known Allergies Past Medical History: Diagnosis Date Essential (primary) hypertension Ovarian cancer (CMS/HCC [facility]/HCC) s/p chemo and resection SVT (supraventricular tachycardia) (CMS/HCC) Past Surgical History: Procedure Laterality Date CABG, ARTERY-VEIN, THREE 06/05/2023 LEFT HEART CATH,PERCUTANEOUS 05/21/2023 TOTAL ABDOM HYSTERECTOMY Social History Tobacco Use Smoking status: Never Passive exposure: Never Smokeless tobacco: Never Substance Use Topics Alcohol use: Not Currently Comment: occasional wine Drug use: Never Family History Problem Relation Name Age of Onset Alzheimer's disease Mother CABG Father Family Status Relation Name Status Mother Father No partnership data on file Review of Systems Constitutional: Negative for recent unintentional weight gain, recent unintentional weight loss andnew or significant fatigue. HENT: Negative for new or significant hearing loss. Eyes: Negative for blurred vision and double vision. Respiratory: Negative for cough, new or significant shortness of breath and snoring. Cardiovascular: See HPI. Positive for leg swelling. Gastrointestinal: Negative for blood in stool and melena. Genitourinary: Negative for dysuria. Musculoskeletal: Negative for myalgias and new or worsening joint stiffness/pain. Skin: Negative for rash. Neurological: Negative for tingling/numbness and focal weakness. Endo/Heme/Allergies: Negative for new or significant bruising/bleeding and polydipsia. Psychiatric/Behavioral: Negative for depression and new or significant memory loss. Vitals: 02/12/24 1141 BP: 136/72 Patient Position: Sitting BP Location: Left arm Pulse: 65 Weight: 61.7 kg (136 lb) Height: 1.6 m (5' 3 ) Body mass index is 24.09 kg/m??. Cardiac Exam Rate/Rhythm: Normal rate and regular rhythm. PMI: Pulses: Normal pulses. Dorsalis pedis pulses are 2+ on the right side and 2+ on the left side. Posterior tibial pulses are 2+ on the right side and 2+ on the left side. Heart Sounds: Normal heart sounds. Normal S1 sounds. Normal S2 sounds. No gallop present. No S3. NoS4. Murmurs: No murmur present Edema left: 1+. Edema Right: 0. Physical Exam Constitutional: No distress. Healthy Appearance. HENT: Oropharynx clear. Eyes: Pupils equal, round, and reactive to light. Conjunctivae normal. Neck: Neck supple. No JVD. Abdomen: Abdomen soft. Bowel sounds normal. No distension. No tenderness. No abdominal bruit present. Pulmonary: Effort normal. Breath sounds normal. Skin: Dry. Warm. No rash. No jaundice. No cyanosis. No clubbing. No xanthoma. Musculoskeletal: No kyphosis. Normal ROM. Neurological: Alert. Oriented x 3. Appropriate mood and affect. Comments: Diagnoses/Impression: 1. Coronary artery disease involving comanche coronary artery of comanche heart without angina pectoris 2. Ischemic cardiomyopathy 3. Nonrheumatic aortic valve insufficiency 4. PAF (paroxysmal atrial fibrillation) (CMS/HCC [facility]/HCC) 5. Primary hypertension 6. Mixed hyperlipidemia Referring Provider: No ref. provider found PCP: VENICE ESTRADA MD documented in this encounter Plan of Treatment Upcoming Encounters Date Type Department Care Team (Late st Contact Info) Description 02/12/2025 11:30 AM CDT Office Visit [facility] [address] [place] [address] Jun Oscar NP [address] [place], [place] [id number] documented as of this encounter Goals Goal Patient Goal Type Associated Problems Recent Progress Patient-Stated? Author Patient will return to prior living situation and remain independent in ADLs upon discharge from hospital Lifestyle No Shanel Haynes RN documented as of this encounter Visit Diagnoses Diagnosis Coronary artery disease involving comanche coronary artery of comanche heart without angina pectoris- Primary Ischemic cardiomyopathy Other specified forms of chronic ischemic heart disease Nonrheumatic aortic valve insufficiency Aortic valve disorders PAF (paroxysmal atrial fibrillation) ([facility]) Atrial fibrillation Primary hypertension Unspecified essential hypertension Mixed hyperlipidemia documented in this encounter Care Teams Registered Vascular Technologist (Rvt) Relationship Specialty Start Date End Date Venice Estrada MD [address] [address] [address] [place], [place] [address] PCP - General FAMILY PRACTICE 04/12/23 Lee Villaseñor MD [address] [place] [address] Consulting Physician INTERNAL MEDICINE 05/28/23 Darell Garcia MD [address] [facility] [address] [place], [place] [address] Consulting Physician CLINICAL CARDIAC ELECTROPHYSIOLOGY 02/08/24 Jun Oscar NP [address] [place] [address] Nurse Practitioner NURSE PRACTITIONER 02/08/24 Judah House MD [address] [facility] [address] [phone] Consulting Physician INTERVENTIONAL CARDIOLOGY 02/12/24 documented as of this encounter
--- OUTSIDE RECORDS SUMMARY | 2024-04-27 15:44 | XMS_ITS | Encounter Summary ---
Author Organization [facility] Address [facility] [facility] [address] [place] [address] Care Team Providers Care Supervisor Grower Name Role Phone Davin Estrada MD Primary Care Provider [phone] Lee Villaseñor MD Unavailable Reason for Visit * Reason Onset Date Comments Reschedule 08/10/2023 Encounter Details Date Type Department Care Team (Late st Contact Info) Description 08/10/2023 Telephone [facility] [address] [place] [address] Darell Garcia MD [address] [facility] [address] [address] Reschedule Social History Tobacco Use Types Packs/Day Years Used Date Smoking Tobacco: Never Passive Smoke Exposure: Never Smokeless Tobacco: Never Alcohol Use Standard Drinks/Week Comments Not Currently 0 (1 standard drink = 0.6 oz pur e alcohol) occasional wine [facility] Utilities Answer Date Recorded In the past 12 months has e electric, gas, oil, or water company [...] and heating? Not hard at all 06/06/2023 [facility] [place] of Occupat ional Health - Occupational Stress [...] place to sleep or slept in a [place] facility (including now)? 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 She is going out of town to see her daughter graduate. She scheduled it for 1 week later 09/18/2023 at 9:00 am documented in this encounter Plan of Treatment Upcoming Encounters Date Type Department Care Team (Late st Contact Info) Description 02/12/2025 11:30 AM CDT Office Visit [facility] [address] [place] [address] Jun Oscar, FISHERIES MANAGEMENT BIOLOGIST [address] [place], [place] [address] documented as of this encounter Goals Goal Patient Goal Type Associated Problems Recent Progress Patient-Stated? Author Patient will return to prior living situation and remain independent in ADLs upon discharge from hospital Lifestyle No Shanel Haynes RN documented as of this encounter Visit Diagnoses Not on filedocumented in this encounter Care Teams Supervisor Grower Relationship Specialty Start Date End Date Davin Estrada MD [address] [place] [address] [place] [address] PCP - General FAMILY PRACTICE 04/12/23 Lee Villaseñor MD [address] [place] [address] Consulting Physician INTERNAL MEDICINE 05/28/23 documented as of this encounter
--- OUTSIDE RECORDS SUMMARY | 2024-04-27 15:44 | XMS_ITS | Encounter Summary ---
Author Organization [facility] Address [address] [place] [address]. [place] [address] [place] [address] Care Team Providers Care Medical Lab Director Name Role Phone Davin Estrada MD Primary Care Provider [phone] Lee Villaseñor MD Unavailable Reason for Visit * Reason Onset Date Comments Results 09/24/2023 Encounter Details Date Type Department Care Team (Late st Contact Info) Description 09/24/2023 Telephone [facility] [address] [place] [address] Darell Garcia MD 9 [facility] [address] [address] Results Social History Tobacco Use Types Packs/Day Years Used Date Smoking Tobacco: Never Passive Smoke Exposure: Never Smokeless Tobacco: Never Alcohol Use Standard Drinks/Week Comments Not Currently 0 (1 standard drink = 0.6 oz pur e alcohol) occasional wine [facility] Utilities Answer Date Recorded In the past [...] and heating? Not hard at all 06/06/2023 [facility] Occupat ional Health - Occupational Stress [...] place to sleep or slept in a fpc (including now)? 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 Verbalized understanding. * Shannon Baltazar RN - 09/24/2023 2:01 PM CDT ----- Message from Darell Garcia MD sent at 09/20/2023 3:50 PM CDT ----- Regarding: Echo results Please notify patient that her echo results came back and her heart function has improved a lot andit is almost back to normal. documented in this encounter Plan of Treatment Upcoming Encounters Date Type Department Care Team (Late st Contact Info) Description 02/12/2025 11:30 AM CDT Office Visit [facility] [address] [place] [address] Jun Oscar, MARINE PILOT [address] [place] [address] documented as of this encounter Goals Goal Patient Goal Type Associated Problems Recent Progress Patient-Stated? Author Patient will return to prior living situation and remain independent in ADLs upon discharge from hospital Lifestyle No Shanel Haynes RN documented as of this encounter Visit Diagnoses Not on filedocumented in this encounter Care Teams Medical Lab Director Relationship Specialty Start Date End Date Davin Estrada MD [address] [place] [address] [address] [place] [address] PCP - General FAMILY PRACTICE 04/12/23 Lee Villaseñor MD [address] [place] [address] Consulting Physician INTERNAL MEDICINE 05/28/23 documented as of this encounter
--- OUTSIDE RECORDS SUMMARY | 2024-04-27 15:44 | XMS_ITS | Referral Summary ---
Author Organization [id number] Address [address] [place] [address] Care Team Providers Care Load Tester Name Role Phone Unavailable Primary Care Provider Unavailabl e Source Comments [email or web address],non-owned Affiliates and Associated Physician Practices is amultiple site organization consisting of ambulatory clinics and hospital sitesin [place], [place], [place] and [place]. This disclosure is being madepursuant to the Care Everywhere program and may not contain all information available regarding this patient. Last updated 18.[email or web address] Allergies No known active allergies Immunizations Name Administration Dates Next Due INFLUENZA VACCINE, HIGH-DOSE , QUADR. (FLUZONE HIGH-DOSE QUADRIVALENT; 65Y+), 0.7 ML ([id number]) 01/21/2018 Social History Tobacco Use Types Packs/Day Years Used Date Smoking Tobacco: Never Assessed Sex and Gender Information Value Date Recorded Sex Assigned at Not on file Gender Identity Not on file Sexual Orientation Not on file Plan of Treatment Not on file [place] Personal/Family 1945 [address] [place] [address]
--- OUTSIDE RECORDS SUMMARY | 2024-04-27 15:44 | XMS_ITS | Encounter Summary ---
Author Organization [facility] Address [address] [place] [address]. [place] [address] [place] [address] Care Team Providers Care Game Programmer Name Role Phone Davin Estrada MD Primary Care Provider [phone] Lee Villaseñor MD Unavailable Reason for Visit * Reason Onset Date Comments Reschedule 08/13/2023 Question 08/13/2023 Encounter Details Date Type Department Care Team (Late st Contact Info) Description 08/13/2023 [facility]phone [facility] [address] [place] [address] Darell Garcia MD [address] [place] [address] [place] [id number] Reschedule; Question Social History Tobacco Use Types Packs/Day Years Used Date Smoking Tobacco: Never Passive Smoke Exposure: Never Smokeless Tobacco: Never Alcohol Use Standard Drinks/Week Comments Not Currently 0 (1 standard drink = 0.6 oz pur e alcohol) occasional wine [facility] Utilities Answer Date Recorded In the past [...] and heating? Not hard at all 06/06/2023 [facility] of Occupat ional Health - Occupational Stress [...] place to sleep or slept in a penitentiary (including now)? 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 * Kelsie Gallego Call - 09/04/2023 11:32 AM CDT Patient calling to see what her restrictions are for the upcoming ECHO. She did not if she is NPO or if she should go without any medications. I did not see anything listed, but would like to make sure. * Kelsie Gallego Call - 08/13/2023 2:08 PM CDT I called patient to see if she does need her Echo rescheduled. I had spoke with Cele on Sunday ramya and a letter mailed. * Kelsie Gallego Call - 08/13/2023 2:08 PM CDT ----- Message from Shannon Baltazar RN sent at 08/13/2023 1:57 PM CDT ----- Regarding: FW: September 12 Echo Contact: Can you reschedule this Echo please ----- Message ----- From: Angela Dahl RN Sent: 08/13/2023 1:17 PM CDT To: [facility] Darell Garcia - Nurse Subject: FW: September 12 Echo ----- Message ----- From: Cele Salcido Sent: 08/10/2023 6:56 AM CDT To: [facility] Triage [place] Subject: September 12 Echo We are going to be out of town on that date. Hopefully can we schedule the Echo in September after September 30? Anxiously awaiting a response. Thank you and have a great day! Cele Salcido documented in this encounter Plan of Treatment Upcoming Encounters Date Type Department Care Team (Late st Contact Info) Description 02/12/2025 11:30 AM CDT Office Visit [facility] [address] [place] [address] Jun Oscar, STATUE CARVER [address] [place], [place] [address] documented as of this encounter Goals Goal Patient Goal Type Associated Problems Recent Progress Patient-Stated? Author Patient will return to prior living situation and remain independent in ADLs upon discharge from hospital Lifestyle No Shanel Haynes, RN documented as of this encounter Visit Diagnoses Not on filedocumented in this encounter Care Teams Game Programmer Relationship Specialty Start Date End Date Davin Estrada MD [address] [place] [address] [address] [place] [address] PCP - General FAMILY PRACTICE 04/12/23 Lee Villaseñor MD [address] [place] [address] Consulting Physician INTERNAL MEDICINE 05/28/23 documented as of this encounter
--- OUTSIDE RECORDS SUMMARY | 2024-04-27 15:44 | XMS_ITS | Encounter Summary ---
Author Organization [facility] Address [facility]ly [facility] [place] [address] [place] [address] Care Team Providers Care Yarn Mercerizer Operator Helper Name Role Phone Davin Estrada MD Primary Care Provider [phone] Lee Villaseñor MD Unavailable Encounter Details Date Type Department Care Team (Late st Contact Info) Description 11/26/[address] [facility] [address] [place] [address] Judah House MD [address] [facility] [address] [place] [address] Social History Tobacco Use Types Packs/Day Years Used Date Smoking Tobacco: Never Passive Smoke Exposure: Never Smokeless Tobacco: Never Alcohol Use Standard Drinks/Week Comments Not Currently 0 (1 standard drink = 0.6 oz pur e alcohol) occasional wine C Utilities Answer Date Recorded In the past 12 months has e [employer], gas, oil, or water [employer] threatened to shut off services in your [...] and heating? Not hard at all 06/06/2023 [facility] of Occupat ional Health - Occupational Stress [...] place to sleep or slept in a jail (including now)? 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 Author Patient will return to prior living situation and remain independent in ADLs upon discharge from hospital Lifestyle No Shanel Haynes RN documented as of this encounter Results * URIC ACID BLOOD (11/27/2023) URIC ACID 3.3 11/27/2023 Result [facility] Judah Lacy [facility] Final Result documented in this encounter Visit Diagnoses Diagnosis Arthralgia of knee, unspecified laterality- Primary documented in this encounter Care Teams Yarn Mercerizer Operator Helper Relationship Specialty Start Date End Date Davin Estrada MD [address] [address] [address] [place] [address] PCP - General FAMILY PRACTICE 04/12/23 Lee Villaseñor MD [address] [place] [address] Consulting Physician INTERNAL MEDICINE 05/28/23 documented as of this encounter
--- OUTSIDE RECORDS SUMMARY | 2024-04-27 15:44 | XMS_ITS | Encounter Summary ---
Author Organization [facility] Address [facility] [place] [address] [place] [address] Care Team Providers Care Manufacturing Process Technician Name Role Phone Davin Estrada MD Primary Care Provider Lee Villaseñor MD Unavailable Encounter Details Date Type Department Care Team (Late st Contact Info) Description 09/03/2023 Orders Only [facility] [address] [place] [address] Judah House MD [address] [facility] [address] [place] [address] Social History Tobacco Use Types Packs/Day Years Used Date Smoking Tobacco: Never Passive Smoke Exposure: Never Smokeless Tobacco: Never Alcohol Use Standard Drinks/Week Comments Not Currently 0 (1 standard drink = 0.6 oz pur e alcohol) occasional wine C Utilities Answer Date Recorded In the past 12 months has e [employer], gas, oil, or water [employer] threatened to shut off services in your [...] and heating? Not hard at all 06/06/2023 [facility] [place] of Occupat ional Health - Occupational Stress [...] place to sleep or slept in a nursing home (including now)? 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 Author Patient will return to prior living situation and remain independent in ADLs upon discharge from hospital Lifestyle No Shanel Haynes RN documented as of this encounter Visit Diagnoses Not on filedocumented in this encounter Care Teams Manufacturing Process Technician Relationship Specialty Start Date End Date Davin Estrada MD [address] [place] [address] [address] [place] [address] PCP - General FAMILY PRACTICE 04/12/23 Lee Villaseñor MD [address] [place] [address] Consulting Physician INTERNAL MEDICINE 05/28/23 documented as of this encounter
--- OUTSIDE RECORDS SUMMARY | 2024-04-27 15:44 | XMS_ITS | Encounter Summary ---
Author Organization [facility] Address [address] [place] [address]. [place] [address] [place] [address] Care Team Providers Care Special Needs Bus Driver Name Role Phone Venice Estrada MD Primary Care Provider Lee Villaseñor MD Unavailable Cintia Garcia MD Unavailable [phone] Jun Oscar NP Unavailable [phone] Judah House MD Unavailable [phone] Reason for Visit * Reason Comments Follow Up Paroxysmal SVT and a trial fibrillation Encounter Details Date Type Department Care Team (Late st Contact Info) Description 02/12/2024 11:30 AM CDT [facility] Visit [facility] [address] [place] [address] Cintia Garcia MD [address] [facility] [address] [address] Follow Up (Paroxysmal SVT and atrial fibrillation) Social History Tobacco Use Types Packs/Day Years Used Date Smoking Tobacco: Never Passive Smoke Exposure: Never Smokeless Tobacco: Never Alcohol Use Standard Drinks/Week Comments Not Currently 0 (1 standard drink = 0.6 oz pur e alcohol) occasional wine [facility] Utilities Answer Date Recorded In the [...] and heating? Not hard at all 06/06/2023 [facility] of Occupat ional Health - [...] place to sleep or slept in a chcf (including now)? No 06/06/2023 Comments Unknown Sex and Gender Information Value Date Recorded Sex Assigned at Not on file Legal Sex Female 3:10 PM CADDY Gender Identity Not on file Sexual Orientation Not on file documented as of this encounter Last Filed Vital Signs Vital Sign Reading Time Taken Comments Blood Pressure 136/72 02/12/2024 11:18 AM CDT Pulse 65 02/12/2024 11:18 AM CDT Temperature - - Respiratory Rate 16 02/12/2024 11:18 AM CDT Oxygen Saturation 98% 02/12/2024 11:18 AM CDT Inhaled Oxygen Concentration - - Weight 61.7 kg (136 lb) 02/12/2024 11:18 AM CDT Height 160 cm (5' 3 ) 02/12/2024 11:18 AM CDT Body Mass Index 24.09 02/12/2024 11:18 AM CDT documented in this encounter Functional [...] Bailon RN Active documented in this encounter Patient Instructions * Patient Instructions* Jun Oscar NP - 02/12/2024 11:30 AM CDT Follow-up in year with Jun Oscar NP for paroxysmal AF and SVT. documented in this encounter Progress Notes * Jun Oscar NP - 02/12/2024 11:30 AM CDT Images from the original note were not included. Cardiac Electrophysiology Clinic Note PATIENT NAME: Kendy Salcido : 1945 REFERRING PROVIDER: No ref. provider found PCP: VENICE ESTRADA MD Reason for Encounter Ischemic cardiomyopathy, paroxysmal SVT and AF Chief Complaint 6 months follow-up for the above History of Present Illness Ms. Salcido is a 78-year-old female with past medical history of ovarian status post chemotherapy and resection, hypertension, ischemic cardiomyopathy, and coronary artery disease status post CABG x 3(SVG to OM1, RICHTER to LAD, RUSSEL to RCA) in May 2023. She is also significant for history of paroxysmal SVT pre-CABG and paroxysmal atrial fibrillation post-CABG. Patient was last seen in the EP clinic on June 2023 and presents today for her 6 months follow-up since the last visit. Patient denies chest pain, shortness of breath, palpitations, and lightheadedness. Patient reports appropriate energy with no decline in completing ADLs. Patient denies orthopneaand PND. Patient denies sheba syncope and TIA/CVA-symptoms. Patient reports tolerating OAC-apixaban with no major bleeding issues. Previous Cardiac History, Cardiac Tests, and Other Relevant History Prior Known Arrhythmias or Past EP History: - Paroxysmal SVT pre-CABG - Paroxysmal AF post CABG ECG obtained today shows sinus rhythm at 65 bpm, [place] 171 ms, QRS 93 ms, QTc 440 ms. Echo 09/18/2023: The left ventricular size is normal. Estimated left ventricular ejection fraction is 45-50%. The right ventricle size is normal. The right ventricular function is normal. Inferior vena cava shows >50% collapse with respiration consistent with normal right atrial pressure. Mild to moderate aortic regurgitation. Mild mitral regurgitation. Mild tricuspid regurgitation. TTE 06/05/2023 during CABG: Pre-bypass Sinus rhythm LV size normal, systolic function moderately depressed, estimated EF 35%, global hypokinesis, especially in the basal inferior/septal/lateral donovan RV size and systolic function grossly normal Mild central MR Trace TR Trileaflet AV, no significant , moderate AI No thrombus in SHERRIE No PFO Post-bypass Paced rhythm Hyperdynamic heart, LV systolic function appears to have improved, estimated EF now 50-55% Otherwise unchanged from previous No pericardial effusion after chest closure 06/05/2023: CABG x 3 SVG to OM1, RICHTER to LAD, RUSSEL to RCA, #[address] Levi. Ischemia Evaluation: Diagnosis Paroxysmal SVT, pre-CABG Paroxysmal AF, post CABG, currently sinus rhythm MIAN?DS?-VASc Score 5 (age, gender, HTN, CAD): On apixaban HTN, CAD status post CABG x 3 06/05/2023 Ischemic cardiomyopathy: On GDMT, EF 45 to 50% on August 2023 echo (35% on May 2023) Recommendations/Plan On a heart rhythm standpoint, patient is stable with improvement of LVEF while on GDMT. No change in current regimen. Continue GDMT per Cardiology. Continue apixaban 5 mg twice daily for stroke prevention. Follow-up in 1 year, but would be pleased to see sooner if condition warrants. Medications Current Outpatient Medications: Acetaminophen (TYLENOL ARTHRITIS PAIN [...] TWICE DAILY, Disp: 60 tablet, Rfl: 6 melatonin 10 MG tablet, Take 1 tablet [...] total) by mouth daily., Disp: , Rfl: levothyroxine (SYNTHROID) 50 MCG tablet, Take 1 tablet (50 mcg total) by mouth every morning., Disp: , Rfl: zolpidem (AMBIEN) 10 MG tablet, Take 0.5 tablets (5 mg total) by mouth nightly as needed., Disp: , Rfl: Medications Changes during this visit: None Allergies Review of patient's allergies indicates: No Known Allergies Past History Past Medical History: Diagnosis Date Essential (primary) hypertension Ovarian cancer (CMS/HCC HHS/HCC) s/p chemo and resection SVT (supraventricular tachycardia) (CMS/HCC HHS/HCC) Past Surgical History: Procedure Laterality Date CABG, ARTERY-VEIN, THREE 06/05/2023 LEFT HEART CATH,PERCUTANEOUS 05/21/2023 TOTAL ABDOM HYSTERECTOMY Social History Tobacco Use Smoking status: Never Passive exposure: Never Smokeless tobacco: Never Substance Use Topics Alcohol use: Not Currently Comment: occasional wine Drug use: Never Family History Problem Relation Name Age of Onset Alzheimer's disease Mother CABG Father Physical Examination Vitals: 02/12/24 1118 BP: 136/72 Pulse: 65 Resp: 16 SpO2: 98% Physical Exam Constitutional: Appearance: Normal appearance. HENT: Head: Normocephalic. Cardiovascular: Rate and Rhythm: Normal rate and regular rhythm. Pulses: Normal pulses. Heart sounds: Normal heart sounds. Pulmonary: Effort: Pulmonary effort is normal. Breath sounds: Normal breath sounds. Abdominal: General: Bowel sounds are normal. Palpations: Abdomen is soft. Musculoskeletal: Right lower leg: Edema present. Left lower leg: Edema present. Comments: L>R swelling Skin: General: Skin is warm and dry. Capillary Refill: Capillary refill takes less than 2 seconds. Neurological: General: No focal deficit present. Mental Status: She is alert and oriented to person, place, and time. Psychiatric: Mood and Affect: Mood normal. Behavior: Behavior normal. Thought Content: Thought content normal. Judgment: Judgment normal. Signed ALFONSO Kaufman 02/12/2024 Cosigned by Cintia Garcia MD at 02/17/2024 10:07 AM CDT Associated attestation - Cintia Garcia MD - 02/17/2024 10:07 AM CDT I, CINTIA GARCIA MD, participated in the care of this patient today and discussed the plan ofcare with GRAY Kaufman, who shared in this visit. I have reviewed the GRAY's documentation and agree with the findings except as I have documented. I personally spent 30 minutes, caring for this patient. CINTIA GARCIA MD documented in this encounter Plan of Treatment Upcoming Encounters Date Type Department Care Team (Late st Contact Info) Description 02/12/2025 11:30 AM CDT Office Visit [facility] [address] [place] [address] Jun Oscar NP [address] [place] [address] documented as of this encounter Goals Goal Patient Goal Type Associated Problems Recent Progress Patient-Stated? Author Patient will return to prior living situation and remain independent in ADLs upon discharge from hospital Lifestyle No Shanel Haynes RN documented as of this encounter Procedures Procedure Name Priority Date/Time Associated Diagnosis Comments ELECTROCARDIOGRAM (NON MIDMARK ACQUIRED) Routine 02/12/2024 11:16 AM CDT Paroxysmal atrial fibrillation (CMS/HCC HHS/HCC) documented in this encounter Results * ELECTROCARDIOGRAM (02/12/2024 11:16 AM CDT) 02/12/2024 11:1 6 AM CDT [facility] CARDIOVASCULAR - 02/19/2024 10:59 AM CDT ? [facility] ?[address] [place], [place] ??[address] ? Test Date: ?2024-02-12 Pat Name: ? KENDY SALCIDO ? Department: ?? 105 ? Room: ? Gender: ? Female ? Product Management Specialist: ?? : ?1945 ? Requested By: CINTIA GARCIA Order Number: [id number] ?Reading : ?? Charbel Wilhelm ? Measurements Intervals ?[place] ? Rate: ? 65 ? P: ?62 [place]: ? 171 ?QRS: ?55 QRSD: ? 93 ? T: ?68 QT: ? 423 ? QTc: ?440 ? Interpretive Statements SINUS RHYTHM NONSPECIFIC T-WAVE ABNORMALITY Procedure Note Charbel Wilhelm MD - 02/19/2024 [facility] [address] [place] [address] Test Date: 2024-02-12 Pat Name: KENDY SALCIDO Department: 105 Room: Gender: Female Product Management Specialist: : 1945 Requested By: CINTIA GARCIA Order Number: [id number] Gerard MD: Princess Measurements Intervals [place] Rate: 65 P: 62 [place]: 171 QRS: 55 QRSD: 93 T: 68 QT: 423 QTc: 440 Interpretive Statements SINUS RHYTHM NONSPECIFIC T-WAVE ABNORMALITY Result [facility] Cintia Garcia MD PROCEDURES-ORDERABLE NO CH ARGE Final Result [facility] documented in this encounter Visit Diagnoses Diagnosis Paroxysmal supraventricular tachycardia (CMS/HCC HHS/HCC)- Primary Paroxysmal supraventricular tachycardia Paroxysmal atrial fibrillation (CMS/HCC HHS/HCC) Atrial fibrillation documented in this encounter Care Teams Special Needs Bus Driver Relationship Specialty Start Date End Date Venice Estrada MD [address] [place] [address] [address] [id number] PCP - General FAMILY PRACTICE 04/12/23 Lee Villaseñor MD [address] [place] [address] Consulting Physician INTERNAL MEDICINE 05/28/23 Cintia Garcia MD [address] [place] [address] Consulting Physician CLINICAL CARDIAC ELECTROPHYSIOLOGY 02/08/24 Jun Oscar NP [address] [place] [address] Nurse Practitioner NURSE PRACTITIONER 02/08/24 Judah House MD [address] [place] [phone] Consulting Physician INTERVENTIONAL CARDIOLOGY 02/12/24 documented as of this encounter
--- OUTSIDE RECORDS SUMMARY | 2024-04-27 15:44 | XMS_ITS | Encounter Summary ---
Author Organization [facility] Address [address] [place] [address]. [place], [place] [address] [place] [address] Care Team Providers Care Oyster Floater Name Role Phone Davin Estrada MD Primary Care Provider [phone] Lee Villaseñor MD Unavailable Reason for Referral * Imaging (Routine) - New Request Specialty Diagnoses / Procedures Referred By Contac t Referred To Contact RADIOLOGY Diagnoses SVT (supraventricular tachycardia) ([facility]) Procedures USE ECHOCARDIOGRAM Cintia Garcia MD [address] [place] [address] [place] [address] Phone: tel: fax: Referral ID Status Reason Start Date Expiration Date Visits Requested Visits Authorized [id number] New Request Echocardiog farzad 3 05/18/2024 1 1 Reason for Visit * Imaging (Routine) - New Request Specialty Diagnoses / Procedures Referred By Contac t Referred To Contact RADIOLOGY Diagnoses SVT (supraventricular tachycardia) ([facility]) Procedures USE ECHOCARDIOGRAM Cintia Garcia MD [address] [facility] [address] [place] [address] Phone: tel: fax: Referral ID Status Reason Start Date Expiration Date Visits Requested Visits Authorized [id number] New Request Echocardiog farzad 3 05/18/2024 1 1 Encounter Details Date Type Department Care Team (Latest Contact Info) Description 09/18/2023 8:38 AM CDT - 09/18/2023 11:59 PM CDT Hospital Encounter [facility] [place] [address] Cintia Garcia MD [address] [place] [address] [address] Discharge Disposition: Home or Self Care (Routine Discharge) Social History Tobacco Use Types Packs/Day Years Used Date Smoking Tobacco: Never Passive Smoke Exposure: Never Smokeless Tobacco: Never Alcohol Use Standard Drinks/Week Comments Not Currently 0 (1 standard drink = 0.6 oz pur e alcohol) occasional wine [employer] Utilities Answer Date Recorded In the past 12 months has [employer], gas, oil, or water [employer] threatened to shut off services in your [...] and heating? 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 aspirin EC (ECOTRIN) 81 MG tablet Take 1 tablet (81 mg total) by mouth daily. 05/04/2023 bisacodyl EC (DULCOLAX) 5 MG Tab EC tablet Take 2 tablets (10 mg total) by mouth daily as needed (.). at bedtime. Calcium Citrate 250 MG Tab Take 2 tablets by mouth daily. melatonin 10 MG tablet Take 1 tablet (10 mg total) by mouth nightly as needed for Sleep. metoprolol succinate ER (TOPROL-XL) 50 MG 24 hr tabletIndication s:SVT (supraventricula r tachycardia) (CMS/HCC HHS/HCC) Take 1 tablet (50 mg total) by mouth 2 (two) times daily. 180 tablet 3 06/26/2023 vitamin B-12 (CYANOCOBALAMIN) 500 MCG tablet Take 1 tablet (500 mcg total) by mouth daily. vitamin C (ASCORBIC ACID) 500 MG tablet Take 2 tablets (1,000 mg total) by mouth daily. Vitamin D3 (CHOLECALCIFEROL ) 50 mcg tablet Take 1 tablet (50 mcg total) by mouth daily. vitamin E 180 MG (400 UNIT) capsule Take 1 capsule (400 Units total) by mouth daily. apixaban (ELIQUIS) 5 MG tablet Take 1 tablet (5 mg total) by mouth 2 (two) times daily. 60 tablet 6 08/10/2023 4 furosemide (LASIX) 20 MG tablet TAKE 1 TABLET(20 MG) BY MOUTH DAILY 30 tablet 07/19/2023 4 vitamin ( PLUS) 27-1 MG tablet Take 1 tablet by mouth daily. 4 rosuvastatin (CRESTOR) 40 MG tablet Take 1 tablet (40 mg total) by mouth nightly at bedtime. 90 tablet 3 05/23/2023 4 sacubitril-valsa rtan (ENTRESTO) 24-26 MG tablet Take 1 tablet by mouth 2 (two) times daily. 60 tablet 6 05/04/2023 4 spironolactone (ALDACTONE) 25 MG tablet Take 0.5 tablets (12.5 mg total) by mouth daily. 45 tablet 3 09/03/2023 4 zolpidem (AMBIEN) 5 MG tablet Take 1 tablet (5 mg total) by mouth nightly as needed for Sleep. 4 documented as of this encounter Plan of Treatment Upcoming Encounters Date Type Department Care Team (Late st Contact Info) Description 02/12/2025 11:30 AM CDT [facility] [address] [place] [phone] Jun Oscar, BLUEPRINT ENGINEER [address] [place], [place] [address] documented as of this encounter Goals Goal Patient Goal Type Associated Problems Recent Progress Patient-Stated? Author Patient will return to prior living situation and remain independent in ADLs upon discharge from hospital Lifestyle No Shanel Haynes RN documented as of this encounter Procedures Procedure Name Priority Date/Time Associated Diagnosis Comments USE ECHOCARDIOGRAM Routine 09/18/2023 9: 10 AM CDT SVT (supraventricular tachycardia) ([facility]) documented in this encounter Results * USE ECHOCARDIOGRAM (09/18/2023 9:10 AM CDT) Anatomical Region Laterality Modality Cardiac Echocardiogram 09/18/2023 8:48 AM CDT Narrative 09/19/2023 9:36 PM CDT ?Echocardiography Report Pat.Name: ??KENDY CRAIG ? Pat.ID: ?[id number] ? St.Date: ?? 09/18/2023 ? Refer.MD: ??[id number], CINTIA GARCIA Exam Time: 8:48:00 AM ? Study Type:ECHO WITH CARDIAC DOPPLER COMP Height: ?160 cm ?Weight: ?61 kg ? BSA: ? 1.63 m2 ?Age: ??1945,77Y ? Sex: ? F ? BP: ?122/70 ? HR: ?55 bpm ?Sonogrphr: Dinesh Key RDCS ? Pat. Stat.:Outpatient ?CPT - 4: ?[id number] ? Reason for Study:cardiomyopthy ? Procedures: 2D, M-mode, Doppler, Color Flow Race: ?W ? ++++++++++++++++++++++++++++++++++++ SUMMARY: ++++++++++++++++++++++++++++++++++++ The left ventricular size is normal. Estimated left ventricular ejection fraction is 45-50%. The right ventricle size is normal. The right ventricular function is normal. Inferior vena cava shows >50% collapse with respiration consistent with normal right atrial pressure. Mild to moderate aortic regurgitation. Mild mitral regurgitation. Mild tricuspid regurgitation. ++++++++++++++++++++++++++++++++++++ FINDINGS: ++++++++++++++++++++++++++++++++++++ LV: ? The left ventricular size is normal. The left ventricular ?systolic function is mildly depressed. The calculated ?ejection fraction is 45%. Estimated left ventricular ?ejection fraction is 45-50%. No concentric left ventricular ?hypertrophy. Left ventricular diastolic function is normal. RV: ? The right ventricle size is normal. The right ventricular ?function is normal. LA: ? The left atrial volume is moderately increased (42-48 ?ml/M2). RA: ? Right atrial size is mildly enlarged. ENDY: ? No evidence of pericardial effusion. AO: ? The proximal ascending aorta measures 3.6cm. PA: ? Estimated right atrial pressure of 3 mmHg. Unable to ?reliably quantitate pulmonary systolic pressure. SVn: ?Inferior vena cava shows >50% collapse with respiration ?consistent with normal right atrial pressure. AV: ? The aortic valve is trileaflet. No evidence of aortic valve ?stenosis. Mild to moderate aortic regurgitation. Mild ?thickening of aortic valve leaflets. MV: ? Mild mitral regurgitation. No evidence of mitral stenosis. ?Mild thickening of mitral valve leaflets. PV: ? No evidence of pulmonic valve stenosis. Mild pulmonic ?regurgitation. TV: ? Mild tricuspid regurgitation. No evidence of tricuspid valve ?stenosis. ++++++++++++++++++++++++++++++++++++ MEASUREMENTS: ++++++++++++++++++++++++++++++++++++ ?DOPPLER LVOT ?? LVOTpkPG ? 3 mmHg ?LVOTmnPG ? 2 mmHg LVOTpkVel ? 80.5 cm/s (70-110) LVOT SV ? 72 ml ?? LVOT TVI ?20.7 cm ? AV Forward Flow AV TVI ?27.5 cm ?AV pkPG ?4 mmHg AV pkVel ? 103 cm/s (100-170) Area (TVI) ? 2.6 cm2 ??(3-5)* AV mnVel ?82.8 cm/s ?Area (Minesh) ? 2.7 cm2 ??(3-5)* AV mnPG ?3 mmHg ? AV Regurg Flow AV pkVel ? 433 cm/s ?AV P1/2t ? 535 msec AV pkPG ? 75 mmHg ? MV Forward Flow MV DeTm ?261 msec ?MV E/A ? 1.4 ? MV mnPG ?2 mmHg ?MV pkE ?74.5 cm/s (60-130) MV pkPG ?4 mmHg ?MV pkA ?54.8 cm/s Lat E' ?? Lat e ? 7.52 cm/s ? Lat E/E' ?? Lat E/e ?9.9 ? Med E' ?? Med e ? 5.07 cm/s ? Med E/E' ?? Med E/e ? 14.7 ? AV DI ?? Value ?0.8 ? SANTOS (VTI) Index ?? Value ?1.6 ? LV Mass 2D ?? Value ?174 g ? LV Mass Index 2D ?? Value ?107 g/m2 ?2D Left Ventricle ?? LVIDd ? 4.68 cm ?? (3.6-5.2) LV EF(Bi-Plane) ?45 % ?(55-75)* LVIDs ? 3.81 cm ?? (2.3-3.9) LVPW ?? LVPWd ?0.958 cm ? Ventricular Septum ?? IVSd ?1.14 cm ? Left Atrium ?? LA a-p ? 4.1 cm ?? (2.8-3.4)* Aorta ?? Ao Asc ? 3.6 cm ?? (zsc 5.1)* LVOT ?? LVOT ? 2.1 cm ? Ratios ?? IVS LA Biplane LAVol I BP ?47.2 ml/m2 ?MMODE Aorta ?? Ao Rt ?3.4 cm ?? (2-3.7) ?? <Electronic Signature> 09/19/2023 09:36 PM Shayna Quigley M.D. Procedure Note Shayna Quigley MD - 09/19/2023 Echocardiography Report Pat.Name: KENDY CRAIG Pat.ID: [id number] .Date: 09/18/2023 Refer.: [id number], PQX-FZ-NYCUWCINTIA GONZALEZ Exam Time: 8:48:00 AM Study Type:ECHO WITH CARDIAC DOPPLER COMP Height: 160 cm Weight: 61 kg BSA: 1.63 m2 Age: 8 1945,77Y Sex: F BP: 122/70 HR: 55 bpm Sonogrphr: Dinesh Key [facility] Pat. Stat.:Outpatient CPT - 4: [id number] Reason for Study:cardiomyopthy Procedures: 2D, M-mode, Doppler, Color Flow Race: W ++++++++++++++++++++++++++++++++++++ SUMMARY: ++++++++++++++++++++++++++++++++++++ The left ventricular size is normal. Estimated left ventricular ejection fraction is 45-50%. The right ventricle size is normal. The right ventricular function is normal. Inferior vena cava shows >50% collapse with respiration consistent with normal right atrial pressure. Mild to moderate aortic regurgitation. Mild mitral regurgitation. Mild tricuspid regurgitation. ++++++++++++++++++++++++++++++++++++ FINDINGS: ++++++++++++++++++++++++++++++++++++ LV: The left ventricular size is normal. The left ventricular systolic function is mildly depressed. The calculated ejection fraction is 45%. Estimated left ventricular ejection fraction is 45-50%. No concentric left ventricular hypertrophy. Left ventricular diastolic function is normal. RV: The right ventricle size is normal. The right ventricular function is normal. LA: The left atrial volume is moderately increased (42-48 ml/M2). RA: Right atrial size is mildly enlarged. ENDY: No evidence of pericardial effusion. AO: The proximal ascending aorta measures 3.6cm. PA: Estimated right atrial pressure of 3 mmHg. Unable to reliably quantitate pulmonary systolic pressure. SVn: Inferior vena cava shows >50% collapse with respiration consistent with normal right atrial pressure. AV: The aortic valve is trileaflet. No evidence of aortic valve stenosis. Mild to moderate aortic regurgitation. Mild thickening of aortic valve leaflets. MV: Mild mitral regurgitation. No evidence of mitral stenosis. Mild thickening of mitral valve leaflets. PV: No evidence of pulmonic valve stenosis. Mild pulmonic regurgitation. TV: Mild tricuspid regurgitation. No evidence of tricuspid valve stenosis. ++++++++++++++++++++++++++++++++++++ MEASUREMENTS: ++++++++++++++++++++++++++++++++++++ DOPPLER LVOT LVOTpkPG 3 mmHg LVOTmnPG 2 mmHg LVOTpkVel 80.5 cm/s (70-110) LVOT SV 72 ml LVOT TVI 20.7 cm AV Forward Flow AV TVI 27.5 cm AV pkPG 4 mmHg AV pkVel 103 cm/s (100-170) Area (TVI) 2.6 cm2 (3-5)* AV mnVel 82.8 cm/s Area (Minesh) 2.7 cm2 (3-5)* AV mnPG 3 mmHg AV Regurg Flow AV pkVel 433 cm/s AV P1/2t 535 msec AV pkPG 75 mmHg MV Forward Flow MV DeTm 261 msec MV E/A 1.4 MV mnPG 2 mmHg MV pkE 74.5 cm/s (60-130) MV pkPG 4 mmHg MV pkA 54.8 cm/s Lat E' Lat e 7.52 cm/s Lat E/E' Lat E/e 9.9 Med E' Med e 5.07 cm/s Med E/E' Med E/e 14.7 AV DI Value 0.8 SANTOS (VTI) Index Value 1.6 LV Mass 2D Value 174 g LV Mass Index 2D Value 107 g/m2 2D Left Ventricle LVIDd 4.68 cm (3.6-5.2) LV EF(Bi-Plane) 45 % (55-75)* LVIDs 3.81 cm (2.3-3.9) LVPW LVPWd 0.958 cm Ventricular Septum IVSd 1.14 cm Left Atrium LA a-p 4.1 cm (2.8-3.4)* Aorta Ao Asc 3.6 cm (zsc 5.1)* LVOT LVOT 2.1 cm Ratios IVS LA Biplane LAVol I BP 47.2 ml/m2 MMODE Aorta Ao Rt 3.4 cm (2-3.7) <Electronic Signature> 09/19/2023 09:36 PM Shayna Quigley M.D. Cintia Garcia MD ECHO Final Resu lt documented in this encounter Visit Diagnoses Diagnosis SVT (supraventricular tachycardia) (CMS/HCC HHS/HCC) Other specified cardiac dysrhythmias documented in this encounter Care Teams Oyster Floater Relationship Specialty Start Date End Date Davin Estrada MD [address] [place] [address] [address] [place] [address] PCP - General FAMILY PRACTICE 04/12/23 Lee Villaseñor MD [address] [place] [address] Consulting Physician INTERNAL MEDICINE 05/28/23 documented as of this encounter
--- OUTSIDE RECORDS SUMMARY | 2024-04-27 15:44 | XMS_ITS | Encounter Summary ---
Author Organization [facility] Address [facility] [place] [address] [place] [address] Care Team Providers Care Mine Utility Operator Name Role Phone Davin Estrada MD Primary Care Provider [phone] Lee Villaseñor MD Unavailable Encounter Details Date Type Department Care Team (Late st Contact Info) Description 11/26/2023 MyChart Message Enc [facility] eld [address] [place] [address] Judah House MD [address] [facility] [address] [place] [address] lab test Social History Tobacco Use Types Packs/Day Years Used Date Smoking Tobacco: Never Passive Smoke Exposure: Never Smokeless Tobacco: Never Alcohol Use Standard Drinks/Week Comments Not Currently 0 (1 standard drink = 0.6 oz pur e alcohol) occasional wine [facility] Utilities Answer Date Recorded In the past 12 months has e electric, gas, oil, or water [employer] threatened to shut off services in your [...] and heating? Not hard at all 06/06/2023 [facility] [place] of Occupat ional Health - Occupational Stress [...] place to sleep or slept in a m[facility]p (including now)? 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 [facility]. * Kristal Crow LPN - 12/03/2023 10:46 AM CDT Lab resulted, patient already aware to resume spironolactone per Starr. * Asiya Miller - 12/03/2023 9:36 AM CDT Fax received from [employer] with the uric acid results. Gave to the nurse. * Starr Stapleton RN - 11/30/2023 4:07 PM CDT Please call for the uric acid level. She had it at [facility] in [place], [place]. documented in this encounter Plan of Treatment Upcoming Encounters Date Type Department Care Team (Late st Contact Info) Description 02/12/2025 11:30 AM CDT Office Visit [facility] el [address] [place] [phone] Jun Oscar, MANAGER GREEN [address] [place], [place] [phone] documented as of this encounter Goals Goal Patient Goal Type Associated Problems Recent Progress Patient-Stated? Author Patient will return to prior living situation and remain independent in ADLs upon discharge from hospital Lifestyle No Shanel Haynes RN documented as of this encounter Visit Diagnoses Not on filedocumented in this encounter Care Teams Mine Utility Operator Relationship Specialty Start Date End Date Davin Estrada MD [address] [place] [address] [address] [place] [address] PCP - General FAMILY PRACTICE 04/12/23 Lee Villaseñor MD [address] [place] [address] Consulting Physician INTERNAL MEDICINE 05/28/23 documented as of this encounter
--- OUTSIDE RECORDS SUMMARY | 2024-04-27 15:44 | XMS_ITS | Encounter Summary ---
Author Organization [facility] Address [facility] [place] [address] [place] [address] Care Team Providers Care Steward/Stewardess Dining Room Name Role Phone Davin Estrada MD Primary Care Provider Lee Villaseñor MD Unavailable Encounter Details Date Type Department Care Team (Late st Contact Info) Description 11/30/2023 Orders Only [facility] [address] [place] [address] Judah House MD [address] [facility] [address] [place] [address] Social History Tobacco Use Types Packs/Day Years Used Date Smoking Tobacco: Never Passive Smoke Exposure: Never Smokeless Tobacco: Never Alcohol Use Standard Drinks/Week Comments Not Currently 0 (1 standard drink = 0.6 oz pur e alcohol) occasional wine C Utilities Answer Date Recorded In the past 12 months has e [employer], gas, oil, or water [employer] threatened to shut off services in your [...] and heating? Not hard at all 06/06/2023 [facility] [place] of Occupat ional Health - Occupational Stress [...] place to sleep or slept in a residential (including now)? 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 Author Patient will return to prior living situation and remain independent in ADLs upon discharge from hospital Lifestyle No Shanel Haynes RN documented as of this encounter Visit Diagnoses Not on filedocumented in this encounter Care Teams Steward/Stewardess Dining Room Relationship Specialty Start Date End Date Davin Estrada MD [address] [place] [address] [address] [place] [address] PCP - General FAMILY PRACTICE 04/12/23 Lee Villaseñor MD [address] [place] [address] Consulting Physician INTERNAL MEDICINE 05/28/23 documented as of this encounter
--- OUTSIDE RECORDS SUMMARY | 2024-04-27 15:44 | XMS_ITS | Encounter Summary ---
Author Organization [facility] Address [facility] [place] [address] [place] [address] Care Team Providers Care Supervisor Phosphorus Processing Name Role Phone Davin Estrada MD Primary Care Provider [phone] Lee Villaseñor MD Unavailable Encounter Details Date Type Department Care Team (Late st Contact Info) Description 12/03/2023 Orders Only [facility] [address] [place] [address] Kristal Crow, CORTES Social History Tobacco Use Types Packs/Day Years Used Date Smoking Tobacco: Never Passive Smoke Exposure: Never Smokeless Tobacco: Never Alcohol Use Standard Drinks/Week Comments Not Currently 0 (1 standard drink = 0.6 oz pur e alcohol) occasional wine [facility] Utilities Answer Date Recorded In the past 12 months has [employer], gas, oil, or water [employer] ? threatened to shut off services in your [...] and heating? 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 Author Patient will return to prior living situation and remain independent in ADLs upon discharge from hospital Lifestyle No Shanel Haynes RN documented as of this encounter Procedures Procedure Name Priority Date/Time Associated Diagnosis Comments URIC ACID BLOOD Routine 11/27/2023 Arthralgia of knee, unspecified laterality documented in this encounter Results * URIC ACID BLOOD (11/27/2023) URIC ACID 3.3 11/27/2023 Result [facility] Judah House MD LABORATORY Final Result documented in this encounter Visit Diagnoses Diagnosis Arthralgia of knee, unspecified laterality documented in this encounter Care Teams Supervisor Phosphorus Processing Relationship Specialty Start Date End Date Davin Estrada MD [address] [place] [address] [address] [place] [address] PCP - General FAMILY PRACTICE 04/12/23 Lee Villaseñor MD [address] [place] [address] Consulting Physician INTERNAL MEDICINE 05/28/23 documented as of this encounter
--- OUTSIDE RECORDS SUMMARY | 2024-04-27 15:44 | XMS_ITS | Clinical Summary ---
Author Organization [facility] System Address [facility]6 [facility] [place] [address] [place] [address] Care Team Providers Care Human Service Technician Name Role Phone Davin Estrada MD Primary Care Provider Lee Villaseñor MD Unavailable Cintia Garcia MD Unavailable [phone] Jun Oscar NP Unavailable [phone] Judah House MD Unavailable [phone] Allergies No known active allergies Medications vitamin C (ASCORBIC ACID) 500 MG tablet Take 2 tablets (1,000 mg total) by mouth daily. Active Vitamin D3 (CHOLECALCIFERO L) 50 mcg tablet Take 1 tablet (50 mcg total) by mouth daily. Active vitamin E 180 MG (400 UNIT) capsule Take 1 capsule (400 Units total) by mouth daily. Active aspirin EC (ECOTRIN) 81 MG tablet Take 1 tablet (81 mg total) by mouth daily. 4 Active Acetaminophen (TYLENOL ARTHRITIS PAIN OR) Take 2 tablets by mouth as needed (nightly for arthritis pain). Active vitamin B-12 (CYANOCOBALAMIN ) 500 MCG tablet Take 1 tablet (500 mcg total) by mouth daily. Active Calcium Citrate 250 MG Tab Take 2 tablets by mouth daily. Active bisacodyl EC (DULCOLAX) 5 MG Tab EC tablet Take 2 tablets (10 mg total) by mouth daily as needed (.). at bedtime. Active melatonin 10 MG tablet Take 1 tablet (10 mg total) by mouth nightly as needed for Sleep. Active metoprolol succinate ER (TOPROL-XL) 50 MG 24 hr tabletIndicatio ns:SVT (supraventricul ar tachycardia) ([facility]) Take 1 tablet (50 mg total) by mouth 2 (two) times daily. 180 tablet 3 4 Active sacubitril-vals taisha (ENTRESTO) 24-26 MG tablet take 1 tablet by mouth twice daily 180 tablet 3 4 Active spironolactone (ALDACTONE) 25 MG tablet Take 0.5 tablets (12.5 mg total) by mouth daily. 45 tablet 3 4 Active ELIQUIS 5 MG tablet TAKE 1 TABLET(5 MG) BY MOUTH TWICE DAILY 60 tablet 6 4 Active levothyroxine (SYNTHROID) 50 MCG tablet Take 1 tablet (50 mcg total) by mouth every morning. 4 Active zolpidem (AMBIEN) 10 MG tablet Take 0.5 tablets (5 mg total) by mouth nightly as needed. 4 Active rosuvastatin (CRESTOR) 40 MG tablet TAKE 1 TABLET(40 MG) BY MOUTH EVERY NIGHT AT BEDTIME 90 tablet 3 4 Active Active Problems Problem Noted Date Diagnosed Date PAF (paroxysmal atrial fibrillation) ([facility] S/HCC) 07/17/2023 Ischemic cardiomyopathy 07/17/2023 Mixed hyperlipidemia 07/17/2023 S/P CABG x 3 06/05/2023 Pseudoaneurysm 05/28/2023 CAD (coronary artery disease) 05/23/2023 Cardiomyopathy, unspecified type ([facility]/ C) 05/04/2023 Nonrheumatic aortic valve insufficiency 05/04/19 24 Hypertension 04/27/2023 SVT (supraventricular tachycardia) ([facility]) 04/12/2023 Encounters Date Type Department Care Team Description 02/12/2024 1:30 PM CDT Office Visit [facility] [place] [address] Chantell Dominguez, WOOD HACKER, MANAGER GROUP-C Follow Up; Coronary Artery Disease 02/12/2024 11:30 AM CDT Office Visit [facility] [address] [place] [address] Cintia Garcia MD Follow Up (Paroxysmal SVT and atrial fibrillation) 02/12/2024 Travel 02/11/2024 Orders Only [facility] [address] [place] [address] Cintia Garcia MD from Last 3 Months Family History Medical History Relation Comments CABG Father Alzheimer's disease Mother Relation Status Comments Father Mother Social History Tobacco Use Types Packs/Day Years Used Date Smoking Tobacco: Never Passive Smoke Exposure: Never Smokeless Tobacco: Never Tobacco Cessation:Counseling Given: Not Answered Alcohol Use Standard Drinks/Week Comments Not Currently 0 (1 standard drink = 0.6 oz pur e alcohol) occasional wine [employer] Answer Date Recorded In the past 12 months has [employer], gas, oil, or water [employer] threatened to shut off services in your [...] and heating? 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 Gender Identity Not on file Sexual Orientation Not on file Last Filed Vital Signs Vital Sign Reading Time Taken Comments Blood Pressure 136/72 02/12/2024 11:41 AM CDT Pulse 65 02/12/2024 11:41 AM CDT Temperature 37 ??C (98.6 ??F) 06/11/2023 7:52 AM ORE CRUSHING DUST COLLECTOR Respiratory Rate 16 02/12/2024 11:41 AM CDT Oxygen Saturation 98% 02/12/2024 11:41 AM CDT Inhaled Oxygen Concentration - - Weight 61.7 kg (136 lb) 02/12/2024 11:41 AM CDT Height 160 cm (5' 3 ) 02/12/2024 11:41 AM CDT Body Mass Index 24.09 02/12/2024 11:41 AM CDT Plan of Treatment Upcoming Encounters Date Type Department Care Team (Late st Contact Info) Description 02/12/2025 11:30 AM CDT Office Visit [facility]d [address] [place] [phone] Jun Oscar, MANAGER GROUP [address] [place] [address] Health Maintenance Due Date Last Done Comments Hepatitis C 12/12/1963 DTaP, Tdap and Td Vaccines (1 - Tdap) 1964 Annual Medicare Wellness Visit 2010 Zoster Vaccines (2 of 3) 03/23/2014 01/26/2014 COVID-19 Vaccine ( season) 2023 02/12/2023, 01/16/2022, 07/28/2021, Additional history exists Influenza Adult (#1) 2024 02/06/2019, 01/21/2018, 01/19/2017, Additional history exists Pneumococcal Vaccine: 65+ Years Completed 01/19/2020, 02/06/2019 RSV Immunization or 60+ Years Completed 01/24/2023 Dexa Scan (General) Completed 03/06/2023, 03/06/2023, 05/19/2020 Meningococcal Vaccine Aged Out No azucena vandana eligible based on patient's age to complete this topic RSV Immunizations Under 20 Months Aged Out No longer eligible based on patient's age to complete this topic Goals Goal Patient Goal Type Associated Problems Recent Progress Patient-Stated? Author Patient will return to prior living situation and remain independent in ADLs upon discharge from hospital Lifestyle No Shanel Haynes, SARAH Medical Devices Implanted Type Area Hand Mica Plate Layer Device Identifier Shelf Expiration Date Model / Serial / Lot Atriclip-Flex Aline Exclusion Atricure 40mm - [id number] Implanted:Qty: 1 on 06/05/2023 by Ahmet Levi MD at [facility] Clip Implant N/A: Heart ATRICURE 11/21/2025 [id number] / [id number] Procedures Procedure Name Priority Date/Time Associated Diagnosis Comments ELECTROCARDIOGRAM (NON MIDMARK ACQUIRED) Routine 02/12/2024 11:16 AM CDT Paroxysmal atrial fibrillation (CMS/HCC HHS/HCC) from Last 3 Months Results * ELECTROCARDIOGRAM (02/12/2024 11:16 AM CDT) 02/12/2024 11:1 6 AM CDT N[facility]ative [facility] - 02/19/2024 10:59 AM CDT ? [facility], [facility] ?[address], [place] ??[address] ? Test Date: ?2024-02-12 Pat Name: ? KENDY SALCIDO ? Department: ?? 105 ? Room: ? Gender: ? Female ? Auto Body Customizer: ?? : ?1945 ? Requested By: CINTIA [facility] Order Number: [id number] ?Reading MD: ?? Charbel Wilhelm ? Measurements Intervals ?Bronson ? Rate: ? 65 ? P: ?62 OK: ? 171 ?QRS: ?55 QRSD: ? 93 ? T: ?68 QT: ? 423 ? QTc: ?440 ? Interpretive Statements SINUS RHYTHM NONSPECIFIC T-WAVE ABNORMALITY Procedure Note Charbel Wilhelm MD - 02/19/2024 [facility], [address] [address] Test Date: 2024-02-12 Pat Name: KENDY SALCIDO Department: 105 Room: Gender: Female Auto Body Customizer: : 1945 Requested By: CINTIA GARCIA Order Number: [id number] Gerard MD: Princess Measurements Intervals Bronson Rate: 65 P: 62 OK: 171 QRS: 55 QRSD: 93 T: 68 QT: 423 QTc: 440 Interpretive Statements SINUS RHYTHM NONSPECIFIC T-WAVE ABNORMALITY us Cintia Garcia MD PROCEDURES-ORDERABLE NO CH ARGE Final Result [facility] from Last 3 [place] [address] MEDICARE [facility] Advance Directives Documents on File Type Date Recorded Patient Feather Baler Expl anation Advance Directives and Living Will 05/29/2023 1:53 PM 10/06/2014 - LIVING WILL DECLARATION Power of Patient Care Manager 05/29/2023 Jaydon Salcido, HCA-spouse; Cadence Salcido, 1st alternate HCA-daughter; Gilberto Salcido, 2nd alternate HCA-son; * Full Code (Latest Code Status on File) Date Activated Date Inactivated Comments 06/05/2023 1:16 PM 06/11/2023 7:10 PM * Full Code Date Activated Date Inactivated Comments 04/27/2023 10:34 PM 04/28/2023 1:47 PM * Full Code Date Activated Date Inactivated Comments 04/12/2023 9:10 PM 04/13/2023 4:27 PM Healthcare Agents on File Name Relationship Healthcare Agent Relationship Communication Jaydon Salcido ([facility]) Spouse Health Care Agent m MerlynAngelina Walters Daughter First Alternate Health Care Agent [email or web address] Gilberto Salcido Son Second Alterna te Health Care Agent Care Teams Human Service Technician Relationship Specialty Start Date End Date Davin Estrada MD [address] [place] [address] [address] [place] [phone] PCP - General FAMILY PRACTICE 04/12/23 Lee Villaseñor MD [address] [place] [address] Consulting Physician INTERNAL MEDICINE 05/28/23 Cintia Garcia MD [address] [address] Consulting Physician CLINICAL CARDIAC ELECTROPHYSIOLOGY 02/08/24 uJn Oscar MANAGER GROUP [address] [place] [address] Nurse Practitioner NURSE PRACTITIONER 02/08/24 Judah House MD [address] [place] [phone] Consulting Physician INTERVENTIONAL CARDIOLOGY 02/12/24
--- OUTSIDE RECORDS SUMMARY | 2024-04-27 15:44 | XMS_ITS | Clinical Summary ---
Author Organization [facility] [employer] Address [address] [place] [address] Care Team Providers Care Director Occupational Name Role Phone Unavailable Primary Care Provider Unavailabl e Source Comments [facility] [employer]non-owned Affiliates and Associated Physician Practices is amultiple site organization consisting of ambulatory clinics and hospital sitesin [place], [place], [place] and [place]. This disclosure is being madepursuant to the Care Everywhere program and may not contain all information available regarding this patient. Last updated 18.[facility] [employer] [employer] Allergies No known active allergies Immunizations Name Administration Dates Next Due INFLUENZA VACCINE, HIGH-DOSE , QUADR. (FLUZONE HIGH-DOSE QUADRIVALENT; 65Y+), 0.7 ML (HD-IIV4) 01/21/2018 Social History Tobacco Use Types Packs/Day Years Used Date Smoking Tobacco: Never Assessed Sex and Gender Information Value Date Recorded Sex Assigned at Not on file Gender Identity Not on file Sexual Orientation Not on file Plan of Treatment Health Maintenance Due Date Last Done Comments BONE DENSITY TESTING 1945 MEDICARE AWV ? 12 MONTHS 1945 HEPATITIS C SCREENING 12/07/1963 DTAP/TDAP/TD VACCINES (1 - Tdap) 1964 ZOSTER VACCINE (1 of 2) 12/12/1995 PNEUMOCOCCAL VACCINE 65+ (1 of 1 - PCV) 2010 Respiratory Syncytial Virus (RSV) Vaccine Pt: or over 60 yrs (1 - 1-dose 75+ series) 2020 DEPRESSION SCREENING 04/23/2023 COVID-19 VACCINE ( - 2023-2 5 season) 2023 INFLUENZA VACCINE (#1) 2023 01/21/2018 HEPATITIS B VACCINE Aged Out No longe r eligible based on patient's age to complete this topic HIB VACCINE Aged Out No longer eligi ble based on patient's age to complete this topic HPV VACCINE Aged Out No longer eligi ble based on patient's age to complete this topic MENINGOCOCCAL VACCINE Aged Out No azucena vandana eligible based on patient's age to complete this topic CELE CRAIG Personal/Family 1945 [address] [place] [address]
--- OUTSIDE RECORDS SUMMARY | 2024-04-27 15:44 | XMS_ITS | Encounter Summary ---
Author Organization [facility] Address [facility]6 [facility] [place] [address] [place] [address] Care Team Providers Care Agronomist Name Role Phone Davin Estrada MD Primary Care Provider [phone] Lee Villaseñor MD Unavailable Reason for Visit * Reason Onset Date Comments Information 08/23/2023 Encounter Details Date Type Department Care Team (Late st Contact Info) Description 08/23/2023 Telephone [facility] [address] [place] [address] Judah House MD [address] [facility] [address] [place] [address] Information Social History Tobacco Use Types Packs/Day Years [...] and heating? Not hard at all 06/06/2023 [facility] of Occupat ional Health - Occupational [...] place to sleep or slept in a long-term (including now)? No 06/06/2023 Comments Unknown Sex and Gender Information Value Date Recorded Sex Assigned at Not on file Legal Sex Female 3:10 PM GLORIA Gender Identity Not on file Sexual Orientation [...] documented in this encounter Progress Notes * Amna Bell - 08/23/2023 8:48 AM CDT Sorry, I called the patient and found out where she was going. [facility] at [phone]. Called and got the fax number [phone]. Faxed the order over * Starr Stapleton RN - 08/23/2023 8:46 AM CDT I am not sure how to do that either. Can we just fax them wherever she is going or maybe email the orders to her? * Amna Bell - 08/23/2023 8:37 AM CDT Patient called asking for the lab AST/SGOT to be released on her my chart so she can print. She is going tomorrow morning to have her blood drawn. I released it but she still cannot see it. I'm not sure how to help her? documented in this encounter Plan of Treatment Upcoming Encounters Date Type Department Care Team (Late st Contact Info) Description 02/12/2025 11:30 AM CDT Office Visit [facility] eld [address] [place] [phone] Jun Oscar, IT SENIOR SOFTWARE ENGINEER JAVA [address] [place] [address] documented as of this encounter Goals Goal Patient Goal Type Associated Problems Recent Progress Patient-Stated? Author Patient will return to prior living situation and remain independent in ADLs upon discharge from hospital Lifestyle No Shanel Haynes, RN documented as of this encounter Visit Diagnoses Not on filedocumented in this encounter Care Teams Agronomist Relationship Specialty Start Date End Date Davin Estrada MD [address] [place] [address] [address] [place] [address] PCP - General FAMILY PRACTICE 04/12/23 Lee Villaseñor MD [address] [place] [address] Consulting Physician INTERNAL MEDICINE 05/28/23 documented as of this encounter
--- OUTSIDE RECORDS SUMMARY | 2024-04-27 15:44 | XMS_ITS | Encounter Summary ---
Author Organization [facility] Address [facility] [place] [address] [place] [address] Care Team Providers Care Airplane Designer Name Role Phone Davin Estrada MD Primary Care Provider Lee Villaseñor MD Unavailable Encounter Details Date Type Department Care Team (Late st Contact Info) Description 09/03/2023 Abstract [facility] [address] [place] [address] Judah House MD [address] [facility] [address] [place] [address] Social History Tobacco Use Types Packs/Day Years Used Date Smoking Tobacco: Never Passive Smoke Exposure: Never Smokeless Tobacco: Never Alcohol Use Standard Drinks/Week Comments Not Currently 0 (1 standard drink = 0.6 oz pur e alcohol) occasional wine [facility] Utilities Answer Date Recorded In the past 12 months has e [employer], gas, oil, or water [employer] threatened to shut off services in your [...] and heating? 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 Author Patient will return to prior living situation and remain independent in ADLs upon discharge from hospital Lifestyle No Shanel Haynes RN documented as of this encounter Procedures Procedure Name Priority Date/Time Associated Diagnosis Comments TSH (OUTSIDE LAB) Routine 08/27/2023 BASIC METABOLIC PANEL Routine 08/27/2023 HEPATIC FUNCTION PANEL Routine 08/27/2023 CBC W/DIFF AUTOMATED Routine 08/27/2023 documented in this encounter Results * (ABNORMAL) BASIC METABOLIC PANEL (08/27/2023) SODIUM S/P/B 135 135 - 146 POTASSIUM S/P/B 4.3 3.5 - 5.3 CO2 27 20 - 32 CHLORIDE S/P/B 102 98 - 110 GLUCOSE 82 65 - 99 mg/dL CALCIUM S/P/B 8.5(A) 8.6 - 10.4 BUN 20 7 - 25 CREATININE S/P/B 1.06(A) 0.6 - 1.0 EGFR NON-AFR. AMER. 54 08/27/2023 us Davin Estrada MD LABORATORY Final Resul t * HEPATIC FUNCTION PANEL (08/27/2023) ALBUMIN S/P/B 4.0 3.6 - 5.1 ALKALINE PHOSPHATASE S/P/B 61 37 - 153 ALT 16 6 - 29 AST 19 10 - 35 BILIRUBIN DIRECT S/P/B 0.1 BILIRUBIN TOTAL S/P/B 0.6 0.2 - 1.2 TOTAL PROTEIN S/P/B 6.6 6..1 - 8.1 08/27/2023 us Davin Estrada MD LABORATORY Final Resul t * (ABNORMAL) TSH (OUTSIDE LAB) (08/27/2023) TSH 15.02(A) 0.4 - 4.5 08/27/2023 us Davin Estrada MD LAB-OUTSIDE/ABSTRACTED Samina l Result * (ABNORMAL) CBC W/DIFF AUTOMATED (08/27/2023) WBC 3.0(A) 3.8 - 10.8 RBC 3.55(A) 3.8 - 5.1 HGB 11.5(A) 11.7 - 15.5 HCT 34.9(A) 35 - 45 MCV 98.3 80 - 100 MCH 32.4 27 - 33 MCHC 33 32 - 36 RDW 13.9 11 - 15 PLT 207 140 - 400 08/27/2023 Davin Estrada MD LABORATORY Final Resul t documented in this encounter Visit Diagnoses Not on filedocumented in this encounter Care Teams Airplane Designer Relationship Specialty Start Date End Date Davin Estrada MD [address] [place] [address] [address] [place] [address] PCP - General FAMILY PRACTICE 04/12/23 Lee Villaseñor MD [address] [place] [address] Consulting Physician INTERNAL MEDICINE 05/28/23 documented as of this encounter
--- OUTSIDE RECORDS SUMMARY | 2024-04-27 15:44 | XMS_ITS | Encounter Summary ---
Author Organization [facility] Address [facility] [place] [address] [place] [address] Care Team Providers Care Laundry Operator Name Role Phone Davin Estrada MD Primary Care Provider [phone] Lee Villaseñor MD Unavailable Encounter Details Date Type Department Care Team (Late st Contact Info) Description 08/23/2023 Orders Only [facility] [address] [place] [address] Judah House MD [address] [facility] [address] [place] [address] Social History Tobacco Use Types Packs/Day Years Used Date Smoking Tobacco: Never Passive Smoke Exposure: Never Smokeless Tobacco: Never Alcohol Use Standard Drinks/Week Comments Not Currently 0 (1 standard drink = 0.6 oz pur e alcohol) occasional wine C Utilities Answer Date Recorded In the past 12 months has e [employer], gas, oil, or water [employer] threatened to shut off services in your [...] and heating? 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 Author Patient will return to prior living situation and remain independent in ADLs upon discharge from hospital Lifestyle No Shanel Haynes RN documented as of this encounter Visit Diagnoses Diagnosis Mixed hyperlipidemia documented in this encounter Care Teams Laundry Operator Relationship Specialty Start Date End Date Davin Estrada MD [address] [place] [address] [address] [place] [address] PCP - General FAMILY PRACTICE 04/12/23 Lee Villaseñor MD [address] [place] [address] Consulting Physician INTERNAL MEDICINE 05/28/23 documented as of this encounter
--- OUTSIDE RECORDS SUMMARY | 2024-04-27 15:44 | XMS_ITS | Encounter Summary ---
Author Organization [facility] Address [facility] [place] [address] [place] [address] Care Team Providers Care Software Controls Engineer Name Role Phone Davin Estrada MD Primary Care Provider [phone] Lee Villaseñor MD Unavailable Darell Garcia MD Unavailable [phone] Jun Oscar GENERAL PRACTITIONER Unavailable Judah House MD Unavailable [phone] Encounter Details Date Type Department Care Team (Late st Contact Info) Description 09/02/2023 [employer] Solutionst Message Enc [facility] ield [address] [place] [phone] Judah House MD [address] [facility] [address] [place] [address] Spironolactone Social History Tobacco Use Types Packs/Day Years Used Date Smoking Tobacco: Never Passive Smoke Exposure: Never Smokeless Tobacco: Never Alcohol Use Standard Drinks/Week Comments Not Currently 0 (1 standard drink = 0.6 oz pur e alcohol) occasional wine C Utilities Answer Date Recorded In the past 12 months has e [employer], gas, oil, or water [employer] threatened to shut off services in your [...] and heating? Not hard at all 06/06/2023 [facility] of Occupat ional Health - Occupational [...] place to sleep or slept in a fdc (including now)? No 06/06/2023 Comments Unknown Sex and Gender Information Value Date Recorded Sex Assigned at Not on file Legal Sex Female 3:10 PM HAND TIER Gender Identity Not on file Sexual Orientation [...] 02/12/2025 11:30 AM CDT Office Visit [facility] eld [address] [place] [address] Jun Oscar, GENERAL PRACTITIONER [address] [place] [address] documented as of this encounter Goals Goal Patient Goal Type Associated Problems Recent Progress Patient-Stated? Author Patient will return to prior living situation and remain independent in ADLs upon discharge from hospital Lifestyle No Shanel Haynes RN documented as of this encounter Visit Diagnoses Not on filedocumented in this encounter Care Teams Software Controls Engineer Relationship Specialty Start Date End Date Davin Estrada MD [address] [place] [address] [address] [place] [address] PCP - General FAMILY PRACTICE 04/12/23 Lee Villaseñor MD [address] [place] [address] Consulting Physician INTERNAL MEDICINE 05/28/23 Darell Garcia MD 9 [facility] [address] [address] Consulting Physician CLINICAL CARDIAC ELECTROPHYSIOLOGY 02/08/24 Jun Oscar NP [address] [place] [address] Nurse Practitioner NURSE PRACTITIONER 02/08/24 Judah House MD [address] [place] [phone] Consulting Physician INTERVENTIONAL CARDIOLOGY 02/12/24 documented as of this encounter
--- OUTSIDE RECORDS SUMMARY | 2024-04-27 15:44 | XMS_ITS | Encounter Summary ---
Author Organization [facility] Address [address] [place] [address]. [place], [place] [address] [place] [address] Care Team Providers Care Social Services Aide Name Role Phone Davin Estrada MD Primary Care Provider [phone] Lee Villaseñor MD Unavailable Encounter Details Date Type Department Care Team (Latest Contact Info) Description 09/18/2023 Travel Social History Tobacco Use Types Packs/Day Years Used Date Smoking Tobacco: Never Passive Smoke Exposure: Never Smokeless Tobacco: Never Alcohol Use Standard Drinks/Week Comments Not Currently 0 (1 standard drink = 0.6 oz pur e alcohol) occasional wine [facility] Utilities Answer Date Recorded In the past 12 months has [facility] [employer], gas, oil, or water [employer] threatened to shut off services in your [...] and heating? Not hard at all 06/06/2023 [facility] of Occupat ional Health - Occupational Stress [...] place to sleep or slept in a prison (including now)? No 06/06/2023 Comments Unknown Sex and Gender Information Value Date Recorded Sex Assigned at Not on file Legal Sex Female 3:10 PM WORKDAY DIRECTOR Gender Identity Not on file Sexual Orientation [...] Description 02/12/2025 11:30 AM CDT [facility] [address] [place] [address] Jun Oscar, UNDERWATER PHOTOGRAPHER [address] [place] [address] documented as of this encounter Goals Goal Patient Goal Type Associated Problems Recent Progress Patient-Stated? Author Patient will return to prior living situation and remain independent in ADLs upon discharge from hospital Lifestyle No Shanel Haynes RN documented as of this encounter Visit Diagnoses Not on filedocumented in this encounter Care Teams Social Services Aide Relationship Specialty Start Date End Date Davin Estrada MD [address] [place] [address] [address] [place], [place] [phone] PCP - General FAMILY PRACTICE 04/12/23 Lee Villaseñor MD [address] [place] [address] Consulting Physician INTERNAL MEDICINE 05/28/23 documented as of this encounter
--- OUTSIDE RECORDS SUMMARY | 2024-04-27 15:44 | XMS_ITS | Encounter Summary ---
Author Organization [facility] Address [facility] [place] [address] [place] [address] Care Team Providers Care Spa Manager/Esthetician Name Role Phone Davin Estrada MD Primary Care Provider [phone] Lee Villaseñor MD Unavailable Darell Garcia MD Unavailable [phone] Jun Oscar NP Unavailable [phone] Judah House MD Unavailable [phone] Encounter Details Date Type Department Care Team (Latest Contact Info) Description 02/12/2024 Travel Social History Tobacco Use Types Packs/Day [...] and heating? Not hard at all 06/06/2023 [facility] of Occupat ional Health - Occupational Stress [...] place to sleep or slept in a assisted (including now)? No 06/06/2023 Comments Unknown Sex and Gender Information Value Date Recorded Sex Assigned at Not on file Legal Sex Female 3:10 PM SPEECH LANG PATH THERAPIST Gender Identity Not on file Sexual Orientation [...] 02/12/2025 11:30 AM CDT [facility] [address] [place] [address] Jun Oscar, FOSTER CARE SOCIAL WORKER [address] [place] [address] documented as of this encounter Goals Goal Patient Goal Type Associated Problems Recent Progress Patient-Stated? Author Patient will return to prior living situation and remain independent in ADLs upon discharge from hospital Lifestyle No Shanel Haynes RN documented as of this encounter Visit Diagnoses Not on filedocumented in this encounter Care Teams Spa Manager/Esthetician Relationship Specialty Start Date End Date Davin Estrada MD [address] [place] [address] [address] [place] [address] PCP - General FAMILY PRACTICE 04/12/23 Lee Villaseñor MD [address] [place] [address] Consulting Physician INTERNAL MEDICINE 05/28/23 Darell Garcia MD [address] [place] [address] Consulting Physician CLINICAL CARDIAC ELECTROPHYSIOLOGY 02/08/24 Jun Oscar NP [address] [place] [address] Nurse Practitioner NURSE PRACTITIONER 02/08/24 Judah House MD [address] [place] [phone] Consulting Physician INTERVENTIONAL CARDIOLOGY 02/12/24 documented as of this encounter
--- OUTSIDE RECORDS SUMMARY | 2024-04-27 15:44 | XMS_ITS | Encounter Summary ---
Author Organization [facility] Address [address] [place] [address] Care Team Providers Care Control Panel Assembler Name Role Phone Unavailable Primary Care Provider Unavailabl e Reason for Visit * Reason Comments Imm Inj REQUEST HIGH DOSE FL U Encounter Details Date Type Department Care Team (Late st Contact Info) Description 01/21/2018 10:20 AM CDT Office Visit [facility] AT [address] [address] Provider, [facility] Need for immunization against influenza (Primary Dx) Social History Tobacco Use Types Packs/Day Years Used Date Smoking Tobacco: Never Assessed Sex and Gender Information Value Date Recorded Sex Assigned at Not on file Gender Identity Not on file Sexual Orientation Not on file documented as of this encounter Progress Notes * Saulo Love APRN-CNP - 01/21/2018 10:32 AM CDT 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 PT TOLERATED PROCEDURE W/O INCIDENT. documented in this encounter Plan of Treatment Not on file documented as of this encounter Visit Diagnoses Diagnosis Need for immunization against influenza- Primary Need for prophylactic vaccination and inoculation against influenza documented in this encounter
--- OUTSIDE RECORDS SUMMARY | 2024-04-27 15:44 | XMS_ITS | Encounter Summary ---
Author Organization [facility] Address [address] [place] [address]. [place] [address] [place] [address] Care Team Providers Care Computer Systems Technology Instructor Name Role Phone Davin Estrada MD Primary Care Provider [phone] Lee Villaseñor MD Unavailable Cintia Garcia MD Unavailable [phone] Oscar NAIL TECH Unavailable [phone] Encounter Details Date Type Department Care Team (Late st Contact Info) Description 02/11/2024 Orders Only [facility] [address] [place] [address] Cintia Garcia MD [address] [place] [address] [phone] Social History Tobacco Use Types Packs/Day Years Used Date Smoking Tobacco: Never Passive Smoke Exposure: Never Smokeless Tobacco: Never Alcohol Use Standard Drinks/Week Comments Not Currently 0 (1 standard drink = 0.6 oz pur e alcohol) occasional wine [facility] Utilities Answer Date Recorded In [...] and heating? Not hard at all 06/06/2023 [facility] [place] of Occupat ional Health - Occupational Stress [...] place to sleep or slept in a detention (including now)? No 06/06/2023 Comments Unknown Sex and Gender Information Value Date Recorded Sex Assigned at Not on file Legal Sex Female 3:10 PM VIAL GAUGER Gender Identity Not on file Sexual Orientation [...] 02/12/2025 11:30 AM CDT [facility] [address] [place] [address] Jun Oscar, NAIL TECH [address] [place] [address] documented as of this encounter Goals Goal Patient Goal Type Associated Problems Recent Progress Patient-Stated? Author Patient will return to prior living situation and remain independent in ADLs upon discharge from hospital Lifestyle No Shanel Haynes RN documented as of this encounter Results * ELECTROCARDIOGRAM (02/12/2024 11:16 AM CDT) 02/12/2024 11:1 6 AM CDT Narrative [facility] - 02/19/2024 10:59 AM CDT ? [facility] ?[address] [place], [place] ??[address] ? Test Date: ?2024-02-12 Pat Name: ? KENDY CRAIG ? Department: ?? 105 ? Room: ? Gender: ? Female ? Orthotics Prosthetics Assistant: ?? : ?1945 ? Requested By: CINTIA GARCIA Order Number: [id number] ?Reading MD: ?? Charbel Wilhelm ? Measurements Intervals ?[place] ? Rate: ? 65 ? P: ?62 CA: ? 171 ?QRS: ?55 QRSD: ? 93 ? T: ?68 QT: ? 423 ? QTc: ?440 ? Interpretive Statements SINUS RHYTHM NONSPECIFIC T-WAVE ABNORMALITY Procedure Note Charbel Wilhelm MD - 02/19/2024 [facility], [place] [address] [place] [address] Test Date: 2024-02-12 Pat Name: KENDY CRAIG Department: 105 Room: Gender: Female Orthotics Prosthetics Assistant: : 1945 Requested By: CINTIA GARCIA Order Number: [id number] Reading MD: Princess Measurements Intervals [place] Rate: 65 P: 62 CA: 171 QRS: 55 QRSD: 93 T: 68 QT: 423 QTc: 440 Interpretive Statements SINUS RHYTHM NONSPECIFIC T-WAVE ABNORMALITY us Cintia Garcia MD PROCEDURES-ORDERABLE NO CH ARGE Final Result [facility] documented in this encounter Visit Diagnoses Diagnosis SVT (supraventricular tachycardia) (CMS/HCC HHS/HCC)- Primary Other specified cardiac dysrhythmias Paroxysmal supraventricular tachycardia (CMS/HCC HHS/HCC)- Primary Paroxysmal supraventricular tachycardia Paroxysmal atrial fibrillation ([facility]/HCC HHS/HCC) Atrial fibrillation documented in this encounter Care Teams Computer Systems Technology Instructor Relationship Specialty Start Date End Date Davin Estrada MD [address] [place] [address] [address] [place] [address] PCP - General FAMILY PRACTICE 04/12/23 Lee Villaseñor MD [address] [place] [address] Consulting Physician INTERNAL MEDICINE 05/28/23 Cintia Garcia MD [address] [place] [address] [address] Consulting Physician CLINICAL CARDIAC ELECTROPHYSIOLOGY 02/08/24 Jun Oscar NP [address] [place] [address] Nurse Practitioner NURSE PRACTITIONER 02/08/24 documented as of this encounter
--- OUTSIDE RECORDS SUMMARY | 2024-04-27 15:44 | XMS_ITS | Patient Health Summary ---
Author Organization [facility] [employer] Address [address] [facility] [place] [address] Care Team Providers Care District Manager Primary Care Sales Name Role Phone Unavailable Primary Care Provider Unavailabl e Note from [facility],non-owned Affiliates and Associated Physician Practices is amultiple site organization consisting of ambulatory clinics and hospital sitesin [place], [place], [place] and [place]. This disclosure is being madepursuant to the Care Everywhere program and may not contain all information available regarding this patient. Last updated 18.[facility] Allergies No known active allergies Immunizations * INFLUENZA VACCINE, HIGH-DOSE, QUADR. (FLUZONE HIGH-DOSE QUADRIVALENT; 65Y+), 0.7 ML (HD-IIV4)(Given 01/21/2018) Social History Tobacco Use Types Packs/Day Years Used Date Smoking Tobacco: Never Assessed Sex and Gender Information Value Date Recorded Sex Assigned at Not on file Gender Identity Not on file Sexual Orientation Not on file
--- OUTSIDE RECORDS SUMMARY | 2024-04-27 15:44 | XMS_ITS | Encounter Summary ---
Author Organization [facility] Address [facility] [place] [address] [place] [address] Care Team Providers Care Oil Boiler Name Role Phone Davin Estrada MD Primary Care Provider [phone] Lee Villaseñor MD Unavailable Encounter Details Date Type Department Care Team (Late st Contact Info) Description 09/03/2023 Orders Only [facility] [address] [place] [address] Starr Stapleton, RN Social History Tobacco Use Types Packs/Day Years Used Date Smoking Tobacco: Never Passive Smoke Exposure: Never Smokeless Tobacco: Never Alcohol Use Standard Drinks/Week Comments Not Currently 0 (1 standard drink = 0.6 oz pur e alcohol) occasional wine [facility] Utilities Answer Date Recorded In the past 12 months has [employer], gas, oil, or water [employer] threatened to shut off services in your [...] and heating? Not hard at all 06/06/2023 [facility] of Occupat ional Health - Occupational [...] on file Legal Sex Female 3:10 PM WELL PULLER HEAD Gender Identity Not on file Sexual Orientation [...] Description 02/12/2025 11:30 AM CDT [facility] [address] [place] [address] Jun Oscar, MOTORCYCLE MAKER [address] [place] [address] documented as of this encounter Goals Goal Patient Goal Type Associated Problems Recent Progress Patient-Stated? Author Patient will return to prior living situation and remain independent in ADLs upon discharge from hospital Lifestyle No Shanel Haynes RN documented as of this encounter Procedures Procedure Name Priority Date/Time Associated Diagnosis Comments LIPID PANEL Routine 08/27/2023 Mixed hyperlipidemia documented in this encounter Results * LIPID PANEL (08/27/2023) CHOLESTEROL 163 HDL 53 TRIGLYCERIDES 91 NON HDL CHOLESTEROL 110 CHOL/HDL RATIO 3.1 LDL (CALCULATED) 91 08/27/2023 Result [facility] Judah House MD LABORATORY Final Result documented in this encounter Visit Diagnoses Diagnosis Mixed hyperlipidemia documented in this encounter Care Teams Oil Boiler Relationship Specialty Start Date End Date Davin Estrada MD [address] [place] [address] [address] [place] [address] PCP - General FAMILY PRACTICE 04/12/23 Lee Villaseñor MD [address] [place] [address] Consulting Physician INTERNAL MEDICINE 05/28/23 documented as of this encounter
--- OUTSIDE RECORDS SUMMARY | 2024-04-27 15:44 | XMS_ITS | Encounter Summary ---
Author Organization [facility] Address [facility] [place] [address] [place] [address] Care Team Providers Care Patternmaker Hand Name Role Phone Davin Estrada MD Primary Care Provider Lee Villaseñor MD Unavailable Encounter Details Date Type Department Care Team (Late st Contact Info) Description 08/21/2023 Orders Only [facility] [address] [place] [address] Judah House MD [address] [facility] [address] [place] [address] Social History Tobacco Use Types Packs/Day Years Used Date Smoking Tobacco: Never Passive Smoke Exposure: Never Smokeless Tobacco: Never Alcohol Use Standard Drinks/Week Comments Not Currently 0 (1 standard drink = 0.6 oz pur e alcohol) occasional wine C Utilities Answer Date Recorded In the past 12 months has e [employer], gas, oil, or water [employer] threatened to shut off services in your [...] and heating? Not hard at all 06/06/2023 [facility] of Occupat ional Health - Occupational Stress [...] on file Legal Sex Female 3:10 PM ICING MACHINE OPERATOR Gender Identity Not on file Sexual Orientation [...] 02/12/2025 11:30 AM CDT [facility] [address] [place] [address] Jun Oscar, WIND TUNNEL ENGINEER [address] [place] [address] documented as of this encounter Goals Goal Patient Goal Type Associated Problems Recent Progress Patient-Stated? Author Patient will return to prior living situation and remain independent in ADLs upon discharge from hospital Lifestyle No Shanel Haynes RN documented as of this encounter Results * LIPID PANEL (08/27/2023) CHOLESTEROL 163 HDL 53 TRIGLYCERIDES 91 NON HDL CHOLESTEROL 110 CHOL/HDL RATIO 3.1 LDL (CALCULATED) 91 08/27/2023 Judah House MD LABORATORY Final Result documented in this encounter Visit Diagnoses Diagnosis Mixed hyperlipidemia- Primary documented in this encounter Care Teams Patternmaker Hand Relationship Specialty Start Date End Date Davin Estrada MD [address] [place] [address] [address] [place] [address] PCP - General FAMILY PRACTICE 04/12/23 Lee Villaseñor MD [address] [place] [address] Consulting Physician INTERNAL MEDICINE 05/28/23 documented as of this encounter
--- OUTSIDE RECORDS SUMMARY | 2024-04-27 15:44 | XMS_ITS | Encounter Summary ---
Author Organization [facility] Address [facility] [facility] [place] [address] [place] [address] Care Team Providers Care Guide Alpine Name Role Phone Davin Estrada MD Primary Care Provider [phone] Lee Villaseñor MD Unavailable Darell Garcia MD Unavailable [phone] Jun Oscar CONCESSIONS MANAGER Unavailable [phone] Judah House MD Unavailable [phone] Encounter Details Date Type Department Care Team (Late st Contact Info) Description 08/10/2023 MyChart Message Enc [facility] eld [address] [place] [phone] Judah House MD [address] [facility] [address] [place] [address] Airplane Social History Tobacco Use Types Packs/Day Years Used Date Smoking Tobacco: Never Passive Smoke Exposure: Never Smokeless Tobacco: Never Alcohol Use Standard Drinks/Week Comments Not Currently 0 (1 standard drink = 0.6 oz pur e alcohol) occasional wine C Utilities Answer Date Recorded In the past 12 months has [employer], oil, or [employer] threatened to shut off services in your [...] and heating? Not hard at all 06/06/2023 [facility] of Occupat ional Health - Occupational Stress [...] place to sleep or slept in a alf (including now)? No 06/06/2023 Comments Unknown Sex and Gender Information Value Date Recorded Sex Assigned at Not on file Legal Sex Female 3:10 PM SEMICONDUCTOR DIES LOADER Gender Identity Not on file Sexual [...] 02/12/2025 11:30 AM CDT Office Visit [facility] [address] [place] [address] Jun Oscar, CONCESSIONS MANAGER [address] [place] [address] documented as of this encounter Goals Goal Patient Goal Type Associated Problems Recent Progress Patient-Stated? Author Patient will return to prior living situation and remain independent in ADLs upon discharge from hospital Lifestyle No Shanel Haynes RN documented as of this encounter Visit Diagnoses Not on filedocumented in this encounter Care Teams Guide Alpine Relationship Specialty Start Date End Date Davin Estrada MD [address] [place] [address] [address] [place] [address] PCP - General FAMILY PRACTICE 04/12/23 Lee Villaseñor MD [address] [place] [address] Consulting Physician INTERNAL MEDICINE 05/28/23 Darell Garcia MD [address] [place] [address] [address] Consulting Physician CLINICAL CARDIAC ELECTROPHYSIOLOGY 02/08/24 Jun Oscar NP [address] [place] [phone] Nurse Practitioner NURSE PRACTITIONER 02/08/24 Judah House MD [address] [place] [phone] Consulting Physician INTERVENTIONAL CARDIOLOGY 02/12/24 documented as of this encounter
--- OUTSIDE RECORDS SUMMARY | 2024-04-27 15:45 | XMS_ITS | Encounter Summary ---
Author Organization [facility] Address [facility] [place] [address] [place] [address] Care Team Providers Care Poultry Pathologist Name Role Phone Davin Estrada MD Primary Care Provider Lee Villaseñor MD Unavailable Darell Garcia MD Unavailable [phone] Oscar FORMING FIXER Unavailable [phone] Judah House MD Unavailable [phone] Encounter Details Date Type Department Care Team (Late st Contact Info) Description 07/24/2023 MyChart Message Enc [facility] [address] [place] [phone] Judah House MD [address] [facility] [facility] [address] [place] [address] heart rehab Social History Tobacco Use Types Packs/Day Years Used Date Smoking Tobacco: Never Passive Smoke Exposure: Never Smokeless Tobacco: Never Alcohol Use Standard Drinks/Week Comments Not Currently 0 (1 standard drink = 0.6 oz pur e alcohol) occasional wine C Utilities Answer Date Recorded In the past 12 months has [employer], oil, or [employer] threatened to shut off services in your [...] and heating? Not hard at all 06/06/2023 [facility] of Occupat ional Health - Occupational Stress [...] place to sleep or slept in a group home (including now)? No 06/06/2023 Comments Unknown Sex and Gender Information Value Date Recorded Sex Assigned at Not on file Legal Sex Female 3:10 PM TREATING ENGINEER HELPER Gender Identity Not on file Sexual [...] 02/12/2025 11:30 AM CDT Office Visit [facility] eld [address] [place] [address] Jun Oscar, FORMING FIXER [address] [place] [address] documented as of this encounter Goals Goal Patient Goal Type Associated Problems Recent Progress Patient-Stated? Author Patient will return to prior living situation and remain independent in ADLs upon discharge from hospital Lifestyle No Shanel Haynes RN documented as of this encounter Visit Diagnoses Not on filedocumented in this encounter Care Teams Poultry Pathologist Relationship Specialty Start Date End Date Davin Estrada MD [address] [place] [address] [address] [place] [address] PCP - General FAMILY PRACTICE 04/12/23 Lee Villaseñor MD [address] [place] [address] Consulting Physician INTERNAL MEDICINE 05/28/23 Darell Garcia MD [address] [place] [address] [address] Consulting Physician CLINICAL CARDIAC ELECTROPHYSIOLOGY 02/08/24 Jun Oscar NP [address] [place] [address] Nurse Practitioner NURSE PRACTITIONER 02/08/24 Judah House MD [address] [place] [phone] Consulting Physician INTERVENTIONAL CARDIOLOGY 02/12/24 documented as of this encounter
--- OUTSIDE RECORDS SUMMARY | 2024-04-27 15:45 | XMS_ITS | Encounter Summary ---
Author Organization [facility] Address [facility]6 [facility] [place] [address] [place] [address] Care Team Providers Care Basket Braider Name Role Phone Davin Estrada MD Primary Care Provider [phone] Lee Villaseñor MD Unavailable Reason for Visit * Reason Onset Date Comments Error 10/02/2023 Encounter Details Date Type Department Care Team (Late st Contact Info) Description 06/12/2023 [facility] Documentation [facility] Unit [address] [place] [address] Xin Bravo, RN Error Social History Tobacco Use Types Packs/Day Years Used Date Smoking Tobacco: Never Passive Smoke Exposure: Never Smokeless Tobacco: Never Alcohol Use Standard Drinks/Week Comments Not Currently 0 (1 standard drink = 0.6 oz pur e alcohol) occasional wine [facility] Utilities Answer Date Recorded In [...] and heating? Not hard at all 06/06/2023 [facility] [place] of Occupat ional Health - Occupational Stress [...] on file Legal Sex Female 3:10 PM OFFICE RUNNER Gender Identity Not on file Sexual Orientation [...] documented in this encounter Progress Notes * PAULO Voss Machine Sweeper Brush Maker - 06/12/2023 8:16 AM CST Encounter opened in error. documented in this encounter Plan of Treatment Upcoming Encounters Date Type Department Care Team (Late st Contact Info) Description 02/12/2025 11:30 AM CDT Office Visit [facility] eld [address] [place] [address] Jun Oscar, TIRE MOLD ENGRAVER [address] [place] [address] documented as of this encounter Goals Goal Patient Goal Type Associated Problems Recent Progress Patient-Stated? Author Patient will return to prior living situation and remain independent in ADLs upon discharge from hospital Lifestyle No Shanel Haynes RN documented as of this encounter Visit Diagnoses Diagnosis ERRONEOUS ENCOUNTER--DISREGARD- Primary documented in this encounter Care Teams Basket Braider Relationship Specialty Start Date End Date Davin Estrada MD [address] [place] [address] [address] [place] [address] PCP - General FAMILY PRACTICE 04/12/23 Lee Villaseñor MD [address] [place] [address] Consulting Physician INTERNAL MEDICINE 05/28/23 documented as of this encounter
--- OUTSIDE RECORDS SUMMARY | 2024-04-27 15:45 | XMS_ITS | Encounter Summary ---
Author Organization [facility] Address [address] [place] [address]. [place], [place] [address] [place] [address] Care Team Providers Care Flame Hardening Machine Operator Name Role Phone Davin Estrada MD Primary Care Provider [phone] Lee Villaseñor MD Unavailable Encounter Details Date Type Department Care Team (Latest Contact Info) Description 07/09/2023 Travel Social History Tobacco Use Types Packs/Day Years Used Date Smoking Tobacco: Never Passive Smoke Exposure: Never Smokeless Tobacco: Never Alcohol Use Standard Drinks/Week Comments Not Currently 0 (1 standard drink = 0.6 oz pur e alcohol) occasional wine [facility] Utilities Answer Date Recorded In the past 12 months has [facility] [employer], gas, oil, or water [employer] threatened to shut off services in your [...] and heating? Not hard at all 06/06/2023 [facility] [place] of Occupat ional Health - Occupational Stress [...] place to sleep or slept in a fci (including now)? No 06/06/2023 Comments Unknown Sex and Gender Information Value Date Recorded Sex Assigned at Not on file Legal Sex Female 3:10 PM DIRECTOR OF DISTANCE LEARNING Gender Identity Not on file Sexual Orientation [...] Description 02/12/2025 11:30 AM CDT Office [facility] [address] [place] [address] Jun Oscar, CLIENT SERVICE COORDINATOR [address] [place] [address] documented as of this encounter Goals Goal Patient Goal Type Associated Problems Recent Progress Patient-Stated? Author Patient will return to prior living situation and remain independent in ADLs upon discharge from hospital Lifestyle No Shanel Haynes RN documented as of this encounter Visit Diagnoses Not on filedocumented in this encounter Care Teams Flame Hardening Machine Operator Relationship Specialty Start Date End Date Davin Estrada MD [address] [place] [address] [address] [place], [place] [address] PCP - General FAMILY PRACTICE 04/12/23 Lee Villaseñor MD [address] [place] [address] Consulting Physician INTERNAL MEDICINE 05/28/23 documented as of this encounter
--- OUTSIDE RECORDS SUMMARY | 2024-04-27 15:45 | XMS_ITS | Encounter Summary ---
Author Organization [facility] Address [facility] [place] [address] [place] [address] Care Team Providers Care Floriculture Teacher Name Role Phone Davin Estrada MD Primary Care Provider [phone] Lee Villaseñor MD Unavailable Encounter Details Date Type Department Care Team (Late st Contact Info) Description 06/26/2023 Orders Only [facility] [address] [place] [address] Judah House MD [address] [facility] [address] [place] [address] Social History Tobacco Use Types Packs/Day Years Used Date Smoking Tobacco: Never Passive Smoke Exposure: Never Smokeless Tobacco: Never Alcohol Use Standard Drinks/Week Comments Not Currently 0 (1 standard drink = 0.6 oz pur e alcohol) occasional wine C Utilities Answer Date Recorded In the past 12 months has e [employer], gas, oil, or water [employer] threatened to shut off services in your [...] and heating? Not hard at all 06/06/2023 [facility] [place] of Occupat ional Health - Occupational Stress [...] on file Legal Sex Female 3:10 PM SLITTER SERVICE AND SETTER Gender Identity Not on file Sexual Orientation [...] Description 02/12/2025 11:30 AM CDT [facility] [address] [place] [address] Jun Oscar, NOVELTIES SALES REPRESENTATIVE [address] [place] [address] documented as of this encounter Goals Goal Patient Goal Type Associated Problems Recent Progress Patient-Stated? Author Patient will return to prior living situation and remain independent in ADLs upon discharge from hospital Lifestyle No Shanel Haynes RN documented as of this encounter Visit Diagnoses Diagnosis SVT (supraventricular tachycardia) (CMS/HCC [facility]) Other specified cardiac dysrhythmias documented in this encounter Care Teams Floriculture Teacher Relationship Specialty Start Date End Date Davin Estrada MD [address] [place] [address] [address] [place] [address] PCP - General FAMILY PRACTICE 04/12/23 Lee Villaseñor MD [address] [place] [address] Consulting Physician INTERNAL MEDICINE 05/28/23 documented as of this encounter
--- OUTSIDE RECORDS SUMMARY | 2024-04-27 15:45 | XMS_ITS | Encounter Summary ---
Author Organization [facility] Address [address] [place] [address]. [place], [place] [address] [place] [address] Care Team Providers Care Title One Teacher Name Role Phone Davin Estrada MD Primary Care Provider [phone] Lee Villaseñor MD Unavailable Encounter Details Date Type Department Care Team (Latest Contact Info) Description 07/17/2023 Travel Social History Tobacco Use Types Packs/Day Years Used Date Smoking Tobacco: Never Passive Smoke Exposure: Never Smokeless Tobacco: Never Alcohol Use Standard Drinks/Week Comments Not Currently 0 (1 standard drink = 0.6 oz pur e alcohol) occasional wine [facility] Utilities Answer Date Recorded In the past 12 months has [facility], gas, oil, or water [employer] threatened to shut off services in your [...] and heating? 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 Author Patient will return to prior living situation and remain independent in ADLs upon discharge from hospital Lifestyle No Shanel Haynes RN documented as of this encounter Visit Diagnoses Not on filedocumented in this encounter Care Teams Title One Teacher Relationship Specialty Start Date End Date Davin Estrada MD [address] [place] [address] [address] [place], [place] [address] PCP - General FAMILY PRACTICE 04/12/23 Lee Villaseñor MD [address] [place] [address] Consulting Physician INTERNAL MEDICINE 05/28/23 documented as of this encounter
--- OUTSIDE RECORDS SUMMARY | 2024-04-27 15:45 | XMS_ITS | Encounter Summary ---
Author Organization [facility] Address [facility], [id number] [facility] [place] [address] [place] [address] Care Team Providers Care Work Order Clerk Name Role Phone Davin Estrada MD Primary Care Provider [phone] Lee Villaseñor MD Unavailable Encounter Details Date Type Department Care Team (Late st Contact Info) Description 07/09/2023 [facility] [address] [place] [address] Scanned, Doc Pccl Social History Tobacco Use Types Packs/Day Years Used Date Smoking Tobacco: Never Passive Smoke Exposure: Never Smokeless Tobacco: Never Alcohol Use Standard Drinks/Week Comments Not Currently 0 (1 standard drink = 0.6 oz pur e alcohol) occasional wine [facility] Utilities Answer Date Recorded In the past 12 months has [employer] gas, oil, or water [employer] threatened to shut off services in your [...] and heating? 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 Author Patient will return to prior living situation and remain independent in ADLs upon discharge from hospital Lifestyle No Shanel Haynes RN documented as of this encounter Visit Diagnoses Not on filedocumented in this encounter Care Teams Work Order Clerk Relationship Specialty Start Date End Date Davin Estrada MD [address] [place] [address] [address] [place] [address] PCP - General FAMILY PRACTICE 04/12/23 Lee Villaseñor MD [address] [place] [address] Consulting Physician INTERNAL MEDICINE 05/28/23 documented as of this encounter
--- OUTSIDE RECORDS SUMMARY | 2024-04-27 15:45 | XMS_ITS | Encounter Summary ---
Author Organization [facility] Address [address] [place] [address]. [place] [address] [place] [address] Care Team Providers Care Supervising Bailiff Name Role Phone Davin Estrada MD Primary Care Provider [phone] Lee Villaseñor MD Unavailable Reason for Visit * Reason Onset Date Comments Appointment Request 06/12/2023 Concerns 06/12/2023 Encounter Details Date Type Department Care Team (Late st Contact Info) Description 06/12/2023 Telephone [facility] ield [address] [place] [address] Judah House MD [address] [facility] [address] [place] [address] Appointment Request; Concerns Social History Tobacco Use Types Packs/Day Years Used Date Smoking Tobacco: Never Passive Smoke Exposure: Never Smokeless Tobacco: Never Alcohol Use Standard Drinks/Week Comments Not Currently 0 (1 standard drink = 0.6 oz pur e alcohol) occasional wine C Utilities Answer Date Recorded In the past 12 months has e electric, gas, oil, or water [employer] threatened to shut off services in [...] and heating? Not hard at all 06/06/2023 [facility] [place] of Occupat ional Health - Occupational Stress [...] place to sleep or slept in a correction (including now)? 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 Reviewed with Dr. House. Recommends pt stop hydralazine and increase Metoprolol succ to 50mg bid. Asked her to continue to monitor her BP and update me in a few days. She v/u. ROLL CATCHER * Ana Abdul - 06/13/2023 11:00 AM CST Called patient to reschedule echo, scheduled for 09/13/23 @ 2pm, appt reminder letter requested, letter sent. Staff message to office. Also, patient had an episode last night for 3-4 hours where her heart rate was 77-126. She finally fell asleep. This morning her blood pressure was 95/68 so she eliminated 1/2 of her metoprolol dose today. Wants to know if she should eliminate this from now on. Patient call back # is [phone]. ROLL CATCHER ROLL CATCHER * Starr Stapleton RN - 06/13/2023 10:35 AM CST Please call pt and reschedule Echo in 3 months. Just let pt know we want to give her heart time after her surgery to recover. If she has questions I'll talk with her. Will still see pt as scheduled. ROLL CATCHER * Starr Stapleton RN - 06/12/2023 4:57 PM CST Reviewed with Dr. House. He recommends waiting on Echo for 3 months post CABG re-vascularization. Dr. Jama, is this okay with you or do you want Echo as planned next month? ROLL CATCHER * Amna Bell - 06/12/2023 9:57 AM CST Patient called back, scheduled with Dr. House on 07/17/23 at 12:15 pm, patient is also seeing Dr. Jama at 11:00 am on 07/18/23. Patient is scheduled for an echo on 07/18/23. Ordered by Dr. Jama to be read by Dr. House. Doesthe patients echo need to be rescheduled prior to appointments? Nurse wants to check if the patientneeds it at that time. ROLL CATCHER * Amna Bell - 06/12/2023 9:40 AM CST Called the patient and left a voicemail asking for a return call. ROLL CATCHER * Starr Stapleton RN - 06/12/2023 9:33 AM CST Pt need a 1 month s/p CABG f/u. Please call pt to schedule. Can offer 07/08 at 1145 or 07/16 at 1215. ROLL CATCHER documented in this encounter Plan of Treatment Upcoming Encounters Date Type Department Care Team (Late st Contact Info) Description 02/12/2025 11:30 AM CDT Office Visit [facility] el [address] [place] [address] Jun Oscar, STUDENT OFFICER [address] [place] [address] documented as of this encounter Goals Goal Patient Goal Type Associated Problems Recent Progress Patient-Stated? Author Patient will return to prior living situation and remain independent in ADLs upon discharge from hospital Lifestyle No Shanel Haynes RN documented as of this encounter Visit Diagnoses Not on filedocumented in this encounter Care Teams Supervising Bailiff Relationship Specialty Start Date End Date Davin Estrada MD [address] [place] [address] [address] [place] [address] PCP - General FAMILY PRACTICE 04/12/23 Lee Villaseñor MD [address] [place] [address] Consulting Physician INTERNAL MEDICINE 05/28/23 documented as of this encounter
--- OUTSIDE RECORDS SUMMARY | 2024-04-27 15:45 | XMS_ITS | Encounter Summary ---
Author Organization [facility] Address [facility]6 [facility] [place] [place] [address] [place] [address] Care Team Providers Care Pharmacy Sales Representative Name Role Phone Dvain Estrada MD Primary Care Provider [phone] Lee Villaseñor MD Unavailable Encounter Details Date Type Department Care Team (Late st Contact Info) Description 07/09/2023 10:20 AM CDT - 07/09/2023 10:21 AM T Hospital Encounter [facility] Diagnostic Imaging [address] [place] [address] Cuong Levi MD [address] [place] [address] Discharge Disposition: Home or Self Care (Routine Discharge) Social History Tobacco Use Types Packs/Day Years Used Date Smoking Tobacco: Never Passive Smoke Exposure: Never Smokeless Tobacco: Never Alcohol Use Standard Drinks/Week Comments Not Currently 0 (1 standard drink = 0.6 oz pur e alcohol) occasional wine [facility] Utilities Answer Date Recorded In the [...] and heating? Not hard at all 06/06/2023 [facility] [place] of Occupat ional Health - Occupational Stress [...] place to sleep or slept in a senior living (including now)? No 06/06/2023 Comments Unknown Sex [...] capsule (400 Units total) by mouth daily. amiodarone 400 MG Tab Take 200 mg by mouth 2 (two) times daily. Take 2 pills twice daily for 2 weeks. Then take 1 tablet once a day. 70 tablet 06/11/2023 4 apixaban (ELIQUIS) 5 MG tablet Take 1 tablet (5 mg total) by mouth 2 (two) times daily. 60 tablet 1 06/11/2023 4 furosemide (LASIX) 20 MG tablet Take 1 tablet (20 mg total) by mouth daily. 30 tablet 06/15/2023 4 ondansetron (ZOFRAN) 4 MG tablet Take 1 tablet (4 mg total) by mouth every 8 (eight) hours as needed for Nausea. 20 tablet 06/15/2023 4 oxyCODONE-acetam inophen (PERCOCET) 5-325 MG tabletIndication s:Acute Pain < 7 Day Supply Indications: Acute Pain < 7 Day Supply Dispense twenty eight tablets. Take one tablet as needed every four hours for pain. Do not take more than 4,000mg of acetaminophen every 24 hours. No refills. 28 tablet 06/11/2023 4 vitamin ( PLUS) 27-1 MG tablet [...] tablets (12.5 mg total) by mouth daily. 90 tablet 2 06/12/2023 4 zolpidem (AMBIEN) 5 MG tablet Take 1 tablet (5 mg total) by mouth nightly as needed for Sleep. 4 documented as of this encounter Plan of Treatment Upcoming Encounters Date Type Department Care Team (Late st Contact Info) Description 02/12/2025 11:30 AM CDT Office Visit [facility] eld [address] [place] [address] Jun Oscar, SAP BPC DEVELOPER [address] [place], [place] [address] documented as of this encounter Goals Goal Patient Goal Type Associated Problems Recent Progress Patient-Stated? Author Patient will return to prior living situation and remain independent in ADLs upon discharge from hospital Lifestyle No Shanel Haynes RN documented as of this encounter Procedures Procedure Name Priority Date/Time Associated Diagnosis Comments XR CHEST PA+LAT Routine 07/09/2023 10:37 AM CDT S/P CABG (coronary artery bypass graft) documented in this encounter Results * XR CHEST PA+LAT (07/09/2023 10:37 AM CDT) Anatomical Region Laterality Modality Chest Radiographic Fabiola ging 07/09/2023 11:1 0 AM CDT Impressions 07/09/2023 11:11 AM CDT IMPRESSION: Minimal blunting of the posterior costophrenic angles representing tiny effusions. Lungs otherwise clear. Ordered By: CUONG LEVI Interpreted By: Raza Worthington MD, 07/09/2023 11:10 AM Narrative 07/09/2023 11:11 AM CDT EXAM DESCRIPTION: Chest - 2 views EXAM TIME : 07/09/2023 10:35 AM INDICATION: S/P CABG ?? COMPARISON FILM : 06/11/2023 FINDINGS: Poststernotomy changes with left atrial appendage clip. Heart and mediastinum are within normal limits. Minimal blunting the posterior costophrenic angles representing tiny effusions. Lungs otherwise clear with no consolidation or CHF. Calcified left hilar nodes with calcified granuloma in the left midlung. No pneumothorax. No acute bony abnormality. Procedure Note Raza Worthington MD - 07/09/2023 EXAM DESCRIPTION: Chest - 2 views EXAM TIME : 07/09/2023 10:35 AM INDICATION: S/P CABG COMPARISON FILM : 06/11/2023 FINDINGS: Poststernotomy changes with left atrial appendage clip. Heart andmediastinum are within normal limits. Minimal blunting the posteriorcostophrenic angles representing tiny effusions. Lungs otherwise clearwith no consolidation or CHF. Calcified left hilar nodes with calcifiedgranuloma in the left midlung. No pneumothorax. No acute bonyabnormality. IMPRESSION: Minimal blunting of the posterior costophrenic anglesrepresenting tiny effusions. Lungs otherwise clear. Ordered By: CUONG LEVI Interpreted By: Raza Worthington MD, 07/09/2023 11:10 AM Cuong Levi MD GENERAL IMAGING Final Resul t documented in this encounter Visit Diagnoses Diagnosis S/P CABG (coronary artery bypass graft) Postsurgical aortocoronary bypass status documented in this encounter Care Teams Pharmacy Sales Representative Relationship Specialty Start Date End Date Davin Estrada MD [address] [place] [address] [address] [place] [address] PCP - General FAMILY PRACTICE 04/12/23 Lee Villaseñor MD [address] [place] [address] Consulting Physician INTERNAL MEDICINE 05/28/23 documented as of this encounter
--- OUTSIDE RECORDS SUMMARY | 2024-04-27 15:45 | XMS_ITS | Encounter Summary ---
Author Organization [facility] Address [facility] [place] [address] [place] [address] Care Team Providers Care Scalp Treatment Specialist Name Role Phone Venice Estrada MD Primary Care Provider [phone] Lee Villaseñor MD Unavailable Reason for Visit * Reason Comments Atrial Fibrillation Encounter Details Date Type Department Care Team (Late st Contact Info) Description 07/17/2023 11:00 AM CDT Office Visit [facility] [address] [place] [phone] Cintia Garcia MD 9 [facility] [address] [id number] Atrial Fibrillation Social History Tobacco Use Types Packs/Day Years [...] heating? Not hard at all 06/06/2023 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 Gender Identity Not on file Sexual Orientation Not on file documented as of this encounter Last Filed Vital Signs Vital Sign Reading Time Taken Comments Blood Pressure 122/70 07/17/2023 11:02 AM CDT Pulse 63 07/17/2023 11:02 AM CDT Temperature - - Respiratory Rate 16 07/17/2023 11:02 AM CDT Oxygen Saturation 96% 07/17/2023 11:02 AM CDT Inhaled Oxygen Concentration - - Weight 61.2 kg (135 lb) 07/17/2023 11:02 AM CDT Height 160 cm (5' 3 ) 07/17/2023 11:02 AM CDT Body Mass Index 23.91 07/17/2023 11:02 AM CDT documented in this encounter Functional [...] documented in this encounter Progress Notes * Cintia Garcia MD - 07/17/2023 11:00 AM CDT Images from the original note were not included. Cardiac Electrophysiology Clinic Note PATIENT NAME: Kendy Craig : 1945 REFERRING PROVIDER: Cintia Garcia MD PCP: VENICE ESTRADA MD Reason for Encounter Follow-up re: SVTs and PAF Chief Complaint Regular follow-up appointment post hospital discharge History of Present Illness This is a 77-year-old lady with PMH significant for SVTs noted on outside hospital ECG, recently diagnosed cardiomyopathy and CAD status post CABG, and atrial fibrillation post CABG. Patient presentsfor regular follow-up appointment and she states she has been doing well. She denied recurrence of palpitations or fast heart rate. She states she does have stable lower limb edema that she started noticing after her CABG. She denies shortness of breath, chest pain, orthopnea, or PND's. She has been compliant with her medications including aspirin and Eliquis and denied any bleeding or falls. Previous Cardiac History, Cardiac Tests, and Other Relevant History Prior Known Arrhythmias or Past EP History: SVT, documented on outside hospital records. Recently dx PAF post CABG ECG: Obtained today shows NSR at HR 61 bpm Outside hospital ECGs as well as our ECGs reviewed. She had an episode of SVT with a heart rate of 200 bpm which was aborted with 100 J shock after unsuccessful termination of her SVT with IV adenosine. Cardiac Structure & Function Evaluation: 04/13/23 +++++++++++++++++++++++++++++++/+++++ SUMMARY: +++++++++++++++++++++++++++++++/+++++ The left ventricular size is normal. Mild eccentric left ventricular hypertrophy. Estimated left ventricular ejection fraction is 30 - 35%. Left ventricular diastolic function is abnormal (grade 2 - pseudonormal pattern). The right ventricular size is normal. Right ventricular systolic function is normal. Inferior vena cava is not dilated and shows >50% collapse with respiration consistent with normal right atrial pressure. Mild to moderate central aortic regurgitation. ISCHEMIA EVALUATION: Left heart catheterization and coronary angiography 05/21/2023: Normal left main, LAD 80% proximal stenosis, D1 90% stenosis, OM1 70 and 80% stenosis, RCA calcified 70 and 80% mid stenosis. CABG 06/05/2023: Coronary artery bypass grafting ?? 3 with saphenous vein to OM1, left internal mammary artery to left anterior descending artery, right internal mammary artery to right coronary artery, #40 atricure clip.. Diagnosis Paroxysmal SVT PAF CAD s/p CABG Ischemic Cardiomyopathy. LVEF 30-35% pre-CABG Recommendations/Plan Continue Toprol for rate control Continue Eliquis for stroke risk reduction Management of hyperlipidemia and hypertension as per Primary Providers. She has TTE ordered to be done in August. Assess LV function in August post revascularization. If LVEF remains less than or equal to 35%, she will need ICD implant for primary prevention. Meanwhile, continue CMP medications per Dr. House Medications Current Outpatient Medications: apixaban (ELIQUIS) 5 MG tablet, Take 1 tablet (5 mg total) by mouth 2 (two) times daily., Disp: 60 tablet, Rfl: 1 aspirin EC (ECOTRIN) 81 MG tablet, Take 1 tablet (81 mg total) by mouth daily., Disp: , Rfl: bisacodyl EC (DULCOLAX) 5 MG Tab EC tablet, Take 2 tablets (10 mg total) by mouth daily as needed (.). at bedtime., Disp: , Rfl: Calcium Citrate 250 MG Tab, Take 2 tablets by mouth daily., Disp: , Rfl: furosemide (LASIX) 20 MG tablet, Take 1 tablet (20 mg total) by mouth daily. (Patient taking differently: Take 1 tablet (20 mg total) by mouth daily. 0.5 tablet daily), Disp: 30 tablet, Rfl: 0 melatonin 10 MG tablet, Take 1 tablet (10 mg total) by mouth nightly as needed for Sleep., Disp: , Rfl: metoprolol succinate ER (TOPROL-XL) 50 MG 24 hr tablet, Take 1 tablet (50 mg total) by mouth 2 (two) times daily., Disp: 180 tablet, Rfl: 3 vitamin ( PLUS) 27-1 MG tablet, Take 1 tablet by mouth daily., Disp: , Rfl: rosuvastatin (CRESTOR) 40 MG tablet, Take 1 tablet (40 mg total) by mouth nightly at bedtime., Disp: 90 tablet, Rfl: 3 sacubitril-valsartan (ENTRESTO) 24-26 MG tablet, Take 1 tablet by mouth 2 (two) times daily., Disp:60 tablet, Rfl: 6 spironolactone (ALDACTONE) 25 MG tablet, Take 0.5 tablets (12.5 mg total) by mouth daily., Disp: 90tablet, Rfl: 2 vitamin B-12 (CYANOCOBALAMIN) 500 MCG tablet, Take [...] mouth daily., Disp: , Rfl: zolpidem (AMBIEN) 5 MG tablet, Take 1 tablet (5 mg total) by mouth nightly as needed for Sleep., Disp: , Rfl: Acetaminophen (TYLENOL ARTHRITIS PAIN OR), Take 2 tablets by mouth as needed (nightly for arthritispain)., Disp: , Rfl: amiodarone 400 MG Tab, Take 200 mg by mouth 2 (two) times daily. Take 2 pills twice daily for 2 weeks. Then take 1 tablet once a day., Disp: 70 tablet, Rfl: 0 ondansetron (ZOFRAN) 4 MG tablet, Take 1 tablet (4 mg total) by mouth every 8 (eight) hours as needed for Nausea., Disp: 20 tablet, Rfl: 0 oxyCODONE-acetaminophen (PERCOCET) 5-325 MG tablet, Indications: Acute Pain < 7 Day Supply Dispense twenty eight tablets. Take one tablet as needed every four hours for pain. Do not take more than4,000mg of acetaminophen every 24 hours. No refills., Disp: 28 tablet, Rfl: 0 Medications Changes during this visit: None Allergies No Known Allergies Past History Past Medical History: Diagnosis Date Essential (primary) hypertension Ovarian cancer (CMS/HCC HHS/HCC) s/p chemo and resection SVT (supraventricular tachycardia) Past Surgical History: Procedure Laterality Date CABG, ARTERY-VEIN, THREE 06/05/2023 LEFT HEART CATH,PERCUTANEOUS 05/21/2023 TOTAL ABDOM HYSTERECTOMY Social History Tobacco Use Smoking status: Never Passive exposure: Never Smokeless tobacco: Never Substance Use Topics Alcohol use: Not Currently Comment: occasional wine Drug use: Never Family History Problem Relation Name Age of Onset Alzheimer's disease Mother CABG Father Physical Examination Vitals: 07/17/23 1102 BP: 122/70 Pulse: 63 Resp: 16 SpO2: 96% General Appearance: Alert, oriented, no acute distress, cooperative. Head: Normocephalic. No masses, lesions, tenderness or abnormalities Lungs: Lungs clear to auscultation. No wheezes or crackles. Heart: RRR. No murmurs, clicks, or gallops. PMI normal. No lifts, heaves, or thrills. Extremities: Extremities normal. No deformities, edema, or skin discoloration Skin: Skin color, texture, turgor normal. No rashes or lesions Pulses: +2 and equal BL. Signed CINTIA GARCIA MD 07/17/2023 documented in this encounter Plan of Treatment Upcoming Encounters Date Type Department Care Team (Late st Contact Info) Description 02/12/2025 11:30 AM CDT Office Visit [facility] [address] [place] [address] Jun Oscar, STAVE BLOCK ROLLER [address] [place] [address] documented as of this encounter Goals Goal Patient Goal Type Associated Problems Recent Progress Patient-Stated? Author Patient will return to prior living situation and remain independent in ADLs upon discharge from hospital Lifestyle No Shanel Haynes, RN documented as of this encounter Procedures Procedure Name Priority Date/Time Associated Diagnosis Comments ELECTROCARDIOGRAM (NON MIDMARK ACQUIRED) Routine 07/17/2023 11:10 AM CDT SVT (supraventricular tachycardia) (CMS/HCC) documented in this encounter Results * ELECTROCARDIOGRAM (07/17/2023 11:10 AM CDT) 07/17/2023 11:1 0 AM CDT Narrative [facility] - 07/17/2023 11:38 AM CDT ? [facility] ?[address] [place], [place] ??[address] ? Test Date: ?2023-07-17 Pat Name: ? KENDY CRAIG ? Department: ?? 105 ? Room: ? Gender: ? Female ? Animal Care Supervisor: ?? ssb : ?1945 ? Requested By: BASIL [id number] Order Number: [id number] ?Reading MD: ?? Basil [id number] ? Measurements Intervals ?[place] ? Rate: ? 61 ? P: ?146 NM: ? 166 ?QRS: ?82 QRSD: ? 97 ? T: ?177 QT: ? 429 ? QTc: ?434 ? Interpretive Statements Normal Sinus Rhythm POSSIBLE LEFT ATRIAL ENLARGEMENT NONSPECIFIC T-WAVE ABNORMALITY Procedure Note Cnitia Garcia MD - 07/17/2023 [facility], [place] [address] [place] [address] Test Date: 2023-07-17 Pat Name: KENDY CRAIG Department: 105 Room: Gender: Female Animal Care Supervisor: jes : 1945 Requested By: CINTIA GARCIA Order Number: [id number] Reading MD: Cintia Garcia Measurements Intervals [place] Rate: 61 P: 146 NM: 166 QRS: 82 QRSD: 97 T: 177 QT: 429 QTc: 434 Interpretive Statements Normal Sinus Rhythm POSSIBLE LEFT ATRIAL ENLARGEMENT NONSPECIFIC T-WAVE ABNORMALITY us Cintia Garcia MD PROCEDURES-ORDERABLE NO CH ARGE Final Result [facility] documented in this encounter Visit Diagnoses Diagnosis SVT (supraventricular tachycardia) (CMS/HCC HHS/HCC) Other specified cardiac dysrhythmias documented in this encounter Care Teams Scalp Treatment Specialist Relationship Specialty Start Date End Date Venice Estrada MD [address] [facility] [address] [place] [address] PCP - General FAMILY PRACTICE 04/12/23 Lee Villaseñor MD 9 [place] [address] Consulting Physician INTERNAL MEDICINE 05/28/23 documented as of this encounter
--- OUTSIDE RECORDS SUMMARY | 2024-04-27 15:45 | XMS_ITS | Encounter Summary ---
Author Organization [facility] Address [facility] [place] [address] [place] [address] Care Team Providers Care Director E Learning Name Role Phone Davin Estrada MD Primary Care Provider Lee Villaseñor MD Unavailable Encounter Details Date Type Department Care Team (Late st Contact Info) Description 06/15/2023 Orders Only [facility] [address] [place] [address] Judah House MD [address] [facility] [address] [place] [address] Social History Tobacco Use Types Packs/Day Years Used Date Smoking Tobacco: Never Passive Smoke Exposure: Never Smokeless Tobacco: Never Alcohol Use Standard Drinks/Week Comments Not Currently 0 (1 standard drink = 0.6 oz pur e alcohol) occasional wine C Utilities Answer Date Recorded In the past 12 months has e [employer], gas, oil, or water [employer] threatened to shut off services in your [...] and heating? Not hard at all 06/06/2023 [facility] [place] of Occupat ional Health - Occupational Stress [...] file Legal Sex Female 3:10 PM DIRECTOR ASSET Gender Identity Not on file Sexual Orientation [...] Description 02/12/2025 11:30 AM CDT [facility] [address] [place] [address] Jun Oscar, PRODUCTION SUPERVISOR OFF SHIFT [address] [place] [address] documented as of this encounter Goals Goal Patient Goal Type Associated Problems Recent Progress Patient-Stated? Author Patient will return to prior living situation and remain independent in ADLs upon discharge from hospital Lifestyle No Shanel Haynes RN documented as of this encounter Visit Diagnoses Not on filedocumented in this encounter Care Teams Director E Learning Relationship Specialty Start Date End Date Davin Estrada MD [address] [place] [address] [address] [place] [address] PCP - General FAMILY PRACTICE 04/12/23 Lee Villaseñor MD [address] [place] [address] Consulting Physician INTERNAL MEDICINE 05/28/23 documented as of this encounter
--- OUTSIDE RECORDS SUMMARY | 2024-04-27 15:45 | XMS_ITS | Encounter Summary ---
Author Organization [facility] Address [facility] [address] [place] [address] Care Team Providers Care Grinder Set Up Operator Thread Name Role Phone Davin Estrada MD Primary Care Provider Lee Villaseñor MD Unavailable Encounter Details Date Type Department Care Team (Late st Contact Info) Description 08/10/2023 Orders Only [facility] [address] [place] [address] Judah House MD [address] [facility] [address] [place] [address] Social History Tobacco Use Types Packs/Day Years Used Date Smoking Tobacco: Never Passive Smoke Exposure: Never Smokeless Tobacco: Never Alcohol Use Standard Drinks/Week Comments Not Currently 0 (1 standard drink = 0.6 oz pur e alcohol) occasional wine C Utilities Answer Date Recorded In the past 12 months has e [employer], gas, oil, or water [employer] threatened to shut off services in your [...] and heating? Not hard at all 06/06/2023 [facility] [place] of Occupat ional Health - Occupational Stress [...] place to sleep or slept in a half-way (including now)? No 06/06/2023 Comments Unknown Sex and Gender Information Value Date Recorded Sex Assigned at Not on file Legal Sex Female 3:10 PM PROCUREMENT ASSISTANT Gender Identity Not on file Sexual Orientation [...] Description 02/12/2025 11:30 AM CDT [facility] [address] [place] [address] Jun Oscar, DATA MANAGEMENT MANAGER [address] [place] [address] documented as of this encounter Goals Goal Patient Goal Type Associated Problems Recent Progress Patient-Stated? Author Patient will return to prior living situation and remain independent in ADLs upon discharge from hospital Lifestyle No Shanel Haynes RN documented as of this encounter Visit Diagnoses Not on filedocumented in this encounter Care Teams Grinder Set Up Operator Thread Relationship Specialty Start Date End Date Davin Estrada MD [address] [place] [address] [address] [place] [address] PCP - General FAMILY PRACTICE 04/12/23 Lee Villaseñor MD [address] [place] [address] Consulting Physician INTERNAL MEDICINE 05/28/23 documented as of this encounter
--- OUTSIDE RECORDS SUMMARY | 2024-04-27 15:45 | XMS_ITS | Encounter Summary ---
Author Organization [facility] Address [facility] [place] [address] [place] [address] Care Team Providers Care Mechanical Engineering Teacher Name Role Phone Davin Estrada MD Primary Care Provider [phone] Lee Villaseñor MD Unavailable Encounter Details Date Type Department Care Team (Late st Contact Info) Description 06/14/2023 Scan [facility] [place] [address] [place] [address] Scanned, Doc Pccl Social History Tobacco Use Types Packs/Day Years Used Date Smoking Tobacco: Never Passive Smoke Exposure: Never Smokeless Tobacco: Never Alcohol Use Standard Drinks/Week Comments Not Currently 0 (1 standard drink = 0.6 oz pur e alcohol) occasional wine [facility] Utilities Answer Date Recorded In the past 12 months has [employer], gas, oil, or water [employer] threatened to shut off services in your [...] and heating? Not hard at all 06/06/2023 [facility] of Occupat ional Health - [...] on file Legal Sex Female 3:10 PM ARABIC TRANSLATOR Gender Identity Not on file Sexual Orientation [...] Description 02/12/2025 11:30 AM CDT Office Visit [facility] el[facility] [address] [place] [address] Jun Oscar, BUSINESS MGR [address] [place] [address] documented as of this encounter Goals Goal Patient Goal Type Associated Problems Recent Progress Patient-Stated? Author Patient will return to prior living situation and remain independent in ADLs upon discharge from hospital Lifestyle No Shanel Haynes RN documented as of this encounter Visit Diagnoses Not on filedocumented in this encounter Care Teams Mechanical Engineering Teacher Relationship Specialty Start Date End Date Davin Estrada MD [address] [place] [address] [address] [place] [address] PCP - General FAMILY PRACTICE 04/12/23 Lee Villaseñor MD [address] [place] [address] Consulting Physician INTERNAL MEDICINE 05/28/23 documented as of this encounter
--- OUTSIDE RECORDS SUMMARY | 2024-04-27 15:45 | XMS_ITS | Encounter Summary ---
Author Organization [facility] Address [facility]6 [facility] [place] [address] [place] [address] Care Team Providers Care Lab Technologist Name Role Phone Davin Estrada MD Primary Care Provider [phone] Lee Villaseñor MD Unavailable Encounter Details Date Type Department Care Team (Late st Contact Info) Description 07/09/2023 10:22 AM CDT - 07/09/2023 11:59 PM T Hospital Encounter [facility] Cardiology - [facility] [address] [place] [address] Cuong Levi MD [address] [place] [address] Discharge Disposition: Home or Self [...] Not hard at all 06/06/2023 [facility] [place] of Occupat ional Health - Occupational Stress [...] on file Legal Sex Female 3:10 PM VICTIM WITNESS ADMINISTRATOR Gender Identity Not on file Sexual Orientation [...] Description 02/12/2025 11:30 AM CDT Office Visit [facility] el[facility] [address] [place] [phone] Jun Oscar, BENEFITS TECHNICIAN [address] [place] [address] documented as of this encounter Goals Goal Patient Goal Type Associated Problems Recent Progress Patient-Stated? Author Patient will return to prior living situation and remain independent in ADLs upon discharge from hospital Lifestyle No Shanel Haynes RN documented as of this encounter Procedures Procedure Name Priority Date/Time Associated Diagnosis Comments ECG 12-LEAD Routine 07/09/2023 11:10 AM CDT S/P CABG x 3 documented in this encounter Results * ECG 12 lead (07/09/2023 11:10 AM CDT) 07/09/2023 11:1 0 AM CDT Narrative [facility] - 07/09/2023 1:30 PM CDT ? [facility] ?[address] [place], [place] ??[address] ? Test Date: ?2023-07-09 Pat Name: ? KENDY KINDER ? Department: ?? 1 ? Room: ? Gender: ? Female ? 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 Ll : ?1945 ? Requested By: CUONG LEVI Order Number: [id number] ? Reading MD: ?? Sina Ponce ? Measurements Intervals ?[place] ? Rate: ? 61 ? P: ?58 KS: ? 146 ?QRS: ?26 QRSD: ? 97 ? T: ?127 QT: ? 437 ? QTc: ?442 ? Interpretive Statements SINUS RHYTHM ST DEVIATION AND MODERATE T-WAVE ABNORMALITY, CONSIDER LATERAL ISCHEMIA [-0.1+ mV T-WAVE IN I/aVL/V5/V6] Procedure Note Sina Ponce MD - 07/09/2023 [facility] [address] [place] [address] Test Date: 2023-07-09 Pat Name: KENDY CRAIG Department: 1 Room: Gender: Female Nfl Player: Flakito : 1945 Requested By: CUONG LEVI Order Number: [id number] Reading MD: Sina Ponce Measurements Intervals [place] Rate: 61 P: 58 KS: 146 QRS: 26 QRSD: 97 T: 127 QT: 437 QTc: 442 Interpretive Statements SINUS RHYTHM ST DEVIATION AND MODERATE T-WAVE ABNORMALITY, CONSIDER LATERAL ISCHEMIA [-0.1+ mV T-WAVE IN I/aVL/V5/V6] Cuong Levi MD ECG ORDERABLES Final Resul t [facility] documented in this encounter Visit Diagnoses Diagnosis S/P CABG x 3- Primary Postsurgical aortocoronary bypass status documented in this encounter Care Teams Lab Technologist Relationship Specialty Start Date End Date Davin Estrada MD [address] [place] [address] [address] [place] [address] PCP - General FAMILY PRACTICE 04/12/23 Lee Villaseñor MD [address] [place] [address] Consulting Physician INTERNAL MEDICINE 05/28/23 documented as of this encounter
--- OUTSIDE RECORDS SUMMARY | 2024-04-27 15:45 | XMS_ITS | Encounter Summary ---
Author Organization [facility] System Address [facility] [address] [place] [address] Care Team Providers Care White Sugar Pan Tank Operator Name Role Phone Venice Estrada MD Primary Care Provider [phone] Lee Villaseñor MD Unavailable Reason for Visit * Reason Comments Follow Up Encounter Details Date Type Department Care Team (Late st Contact Info) Description 07/17/2023 12:15 PM CDT Office Visit [facility] [address] [place] [phone] Judah Youssef MD [address] [facility] [address] [place] [address] Follow Up Social History Tobacco Use Types Packs/Day Years [...] heating? Not hard at all 06/06/2023 [facility] [place] of Occupat ional Health - Occupational Stress [...] on file Legal Sex Female 3:10 PM LICENSING REGISTRATION EXAMINER Gender Identity Not on file Sexual Orientation Not on file documented as of this encounter Last Filed Vital Signs Vital Sign Reading Time Taken Comments Blood Pressure 122/70 07/17/2023 11:06 AM CDT Pulse 63 07/17/2023 11:06 AM CDT Temperature - - Respiratory Rate 16 07/17/2023 11:06 AM CDT Oxygen Saturation 96% 07/17/2023 11:06 AM CDT Inhaled Oxygen Concentration - - Weight 61.2 kg (135 lb) 07/17/2023 11:06 AM CDT Height 160 cm (5' 3 ) 07/17/2023 11:06 AM CDT Body Mass Index 23.91 07/17/2023 11:06 AM CDT documented in this encounter Functional [...] documented in this encounter Progress Notes * Judah Youssef MD - 07/17/2023 12:15 PM CDT Reason for Visit: Follow Up History of Present Illness: Recommendations and Plan: Medications: Current Outpatient Medications: Acetaminophen (TYLENOL ARTHRITIS PAIN OR), Take 2 tablets by mouth as needed (nightly for arthritispain)., Disp: , Rfl: apixaban (ELIQUIS) 5 MG tablet, Take 1 [...] tablets by mouth daily., Disp: , Rfl: melatonin 10 MG tablet, [...] as needed for Sleep., Disp: , Rfl: furosemide (LASIX) 20 MG tablet, TAKE 1 TABLET(20 MG) BY MOUTH DAILY, Disp: 30 tablet, Rfl: 0 Review of patient's allergies indicates: No Known [...] Family Status Relation Name Status Mother Father Review of Systems Constitutional: Negative for recent unintentional weight gain, recent unintentional weight loss andnew or significant fatigue. HENT: Negative for new or significant hearing loss. Eyes: Negative for blurred vision and double vision. Respiratory: Negative for cough, new or significant shortness of breath and snoring. Cardiovascular: See HPI. Negative for chest pain and PND. Gastrointestinal: Negative for blood in stool and melena. Genitourinary: Negative for dysuria. Musculoskeletal: Negative for myalgias and new or worsening joint stiffness/pain. Skin: Negative for rash. Neurological: Positive for dizziness. Negative for tingling/numbness and focal weakness. Endo/Heme/Allergies: Negative for new or significant bruising/bleeding and polydipsia. Psychiatric/Behavioral: Negative for depression and new or significant memory loss. Vitals: 07/17/23 1106 BP: 122/70 Patient Position: Sitting BP Location: Right arm Pulse: 63 Weight: 61.2 kg (135 lb) Height: 1.6 m (5' 3 ) Body mass index is 23.91 kg/m??. Cardiac Exam Rate/Rhythm: Normal rate and regular rhythm. PMI: PMI is not displaced. Pulses: Normal pulses. Femoral pulses are 2+ on the right side and 2+ on the left side. Heart Sounds: Normal heart sounds. Normal S1 sounds. Normal S2 sounds. No gallop present. No S3. NoS4. Murmurs: Physical Exam Constitutional: No distress. Healthy Appearance. HENT: Oropharynx clear. Eyes: Pupils equal, round, and reactive to light. Conjunctivae normal. Neck: Neck supple. No JVD. Abdomen: Abdomen soft. Bowel sounds normal. No tenderness. No mass. No hepatomegaly. No splenomegaly. Abdominal aorta not palpably enlarged. No abdominal bruit present. Pulmonary: Effort normal. Breath sounds normal. Surgical scar.. Skin: No rash. No cyanosis. No clubbing. No xanthoma. Musculoskeletal: No kyphosis. Normal ROM. Neurological: Alert. Oriented x 3. Appropriate mood and affect. Normal motor skills. Normal gait. Comments: Diagnoses/Impression: 1. Coronary artery disease involving grayling coronary artery of grayling heart without angina pectoris 2. S/P CABG x 3 3. SVT (supraventricular tachycardia) (CMS/HCC) 4. PAF (paroxysmal atrial fibrillation) (CMS/HCC HHS/HCC) 5. Ischemic cardiomyopathy 6. Primary hypertension 7. Mixed hyperlipidemia Referring Provider: No ref. provider found PCP: VENICE ESTRADA MD * Judah Youssef MD - 07/17/2023 12:00 AM CDT Patient Name: KENDY SALCIDO Date of : 1945 Account: [id number] Facility: [facility] Location: [facility] Date of Service: 07/17/2023 Visit HISTORY OF PRESENT ILLNESS: Ms. Salcido is here to see me for re-evaluation. She underwent cardiac catheterization for workup of cardiomyopathy. She was noted to have severe 3-vessel disease. She underwent coronary artery bypass grafting by Dr. Levi on June 05 of this year. She received a RICHTER graft to the LAD, a RUSSEL graft to the RCA and an SVG to the OM1 branch of circumflex artery. She had an AtriCure clip as well. She had a bout of paroxysmal postoperative atrial fibrillation. She has had no recurrence. Her past history is significant for paroxysmal supraventricular tachycardia. Risk factors include hypertension and hyperlipidemia. Since discharge from the hospital, she has felt progressively better. She is participating in cardiac rehab 3 days a week without any symptoms at this point. She is walking on the other days as well.She has remained compliant to diet including low sodium. She reports an excellent effort tolerance.She states she is doing quite well. She had an EP follow up with Dr. Jama earlier today. He had recommended that she stay the course with Apixaban anticoagulation. Her echocardiogram prior to surgery demonstrated an ejection fraction of approximately 35%. I have reviewed her current medications with her. She appears to be tolerating them quite well. HerLDL cholesterol checked during hospitalization was 146. She is now on high-intensity statin therapy. She will have a repeat blood work at her PCP's office next month. IMPRESSION: Ms. Salcido is doing well from a cardiovascular standpoint. She is to continue secondaryprevention for coronary artery disease. She is on appropriate antiplatelet therapy with low-dose Aspirin. Regarding cardiomyopathy, she is on guideline-directed medical therapy with Entresto, Metoprolol Succinate and Spironolactone. She will have an echo rechecked in July to assess for recovery of LV function post-revascularization. Hypertension is excellently controlled on today's clinic visit. Regarding hyperlipidemia, she is to continue high-intensity statin therapy with a long-term LDL cholesterol goal of less than 70. I have discussed diet and exercise with her. If she remains stable, I will plan to see her again in6 months or as needed. Signature/Date: JUDAH YOUSSEF MD #[id number] /TAP documented in this encounter Plan of Treatment Upcoming Encounters Date Type Department Care Team (Late st Contact Info) Description 02/12/2025 11:30 AM CDT Office Visit [facility] [address] [place] [address] Jun Oscar NP [address] [place] [address] documented as of this encounter Goals Goal Patient Goal Type Associated Problems Recent Progress Patient-Stated? Author Patient will return to prior living situation and remain independent in ADLs upon discharge from hospital Lifestyle No Shanel Haynes RN documented as of this encounter Visit Diagnoses Diagnosis Coronary artery disease involving grayling coronary artery of grayling heart without angina pectoris- Primary S/P CABG x 3 Postsurgical aortocoronary bypass status SVT (supraventricular tachycardia) ([facility]) Other specified cardiac dysrhythmias PAF (paroxysmal atrial fibrillation) ([facility]) Atrial fibrillation Ischemic cardiomyopathy Other specified forms of chronic ischemic heart disease Primary hypertension Unspecified essential hypertension Mixed hyperlipidemia documented in this encounter Care Teams White Sugar Pan Tank Operator Relationship Specialty Start Date End Date Venice Estrada MD [address] [place] [address] [address] [place], [place] [address] PCP - General FAMILY PRACTICE 04/12/23 Lee Villaseñor MD [address] [place] [id number] Consulting Physician INTERNAL MEDICINE 05/28/23 documented as of this encounter
--- OUTSIDE RECORDS SUMMARY | 2024-04-27 15:45 | XMS_ITS | Encounter Summary ---
Author Organization [facility] System Address [facility] [place] [address] [place] [address] Care Team Providers Care Maintenance Machinist Name Role Phone Davin Estrada MD Primary Care Provider [phone] Lee Villaseñor MD Unavailable Reason for Visit * Reason Onset Date Comments Refill Request 06/26/2023 Encounter Details Date Type Department Care Team (Late st Contact Info) Description 06/26/2023 Telephone [facility] [address] [place] [address] Judah House MD [address] [facility] [address] [place] [address] Refill Request Social History Tobacco Use Types Packs/Day Years Used Date Smoking Tobacco: Never Passive Smoke Exposure: Never Smokeless Tobacco: Never Alcohol Use Standard Drinks/Week Comments Not Currently 0 (1 standard drink = 0.6 oz pur e alcohol) occasional wine [facility] Utilities Answer Date Recorded In the [...] heating? Not hard at all 06/06/2023 [facility] [place] of Occupat ional Health - Occupational Stress [...] on file Legal Sex Female 3:10 PM DANCE ARTIST Gender Identity Not on file Sexual Orientation [...] Progress Notes * Starr Stapleton RN - 06/26/2023 8:56 AM CST Refill sent. E ARTIST * Amna Bell - 06/26/2023 8:48 AM CST Patient needs a refill on her metoprolol called into [facility] in [place], [place]. She is completely out E ARTIST documented in this encounter Plan of Treatment Upcoming Encounters Date Type Department Care Team (Late st Contact Info) Description 02/12/2025 11:30 AM CDT [facility] [address] [place] [address] Jun Oscar, DIESEL MACHINIST [address] [place] [address] documented as of this encounter Goals Goal Patient Goal Type Associated Problems Recent Progress Patient-Stated? Author Patient will return to prior living situation and remain independent in ADLs upon discharge from hospital Lifestyle No Shanel Haynes RN documented as of this encounter Visit Diagnoses Not on filedocumented in this encounter Care Teams Maintenance Machinist Relationship Specialty Start Date End Date Davin Estrada MD [address] [place] [address] [address] [place] [address] PCP - General FAMILY PRACTICE 04/12/23 Lee Villaseñor MD [address] [place] [address] Consulting Physician INTERNAL MEDICINE 05/28/23 documented as of this encounter
--- OUTSIDE RECORDS SUMMARY | 2024-04-27 15:45 | XMS_ITS | Encounter Summary ---
Author Organization [facility] System Address [address] [place] [address]. [place] [address] [place] [address] Care Team Providers Care Metal Dresser Name Role Phone Davin Estrada MD Primary Care Provider Lee Villaseñor MD Unavailable Darell Garcia MD Unavailable [phone] Oscar NP Unavailable [phone] Judah House MD Unavailable [phone] Encounter Details Date Type Department Care Team (Late st Contact Info) Description 06/12/2023 Hospital Follow-up Call [facility] Cardiovascular Care Unit [address] [place] [address] Josselyn Bernal, RN Social History Tobacco Use Types Packs/Day Years Used Date Smoking Tobacco: Never Passive Smoke Exposure: Never Smokeless Tobacco: Never Alcohol Use Standard Drinks/Week Comments Not Currently 0 (1 standard drink = 0.6 oz pur e alcohol) occasional wine [facility] Utilities Answer Date Recorded In [...] and heating? Not hard at all 06/06/2023 [facility] [place] of Occupat ional Health - Occupational Stress [...] on file Legal Sex Female 3:10 PM EMERGENCY DEPARTMENT COORDINATOR Gender Identity Not on file Sexual Orientation [...] 02/12/2025 11:30 AM CDT Office Visit [facility] [address] [place] [address] Jun Oscar, ENVIRONMENTAL ENGINEERING AIDE [address] [place] [address] documented as of this encounter Goals Goal Patient Goal Type Associated Problems Recent Progress Patient-Stated? Author Patient will return to prior living situation and remain independent in ADLs upon discharge from hospital Lifestyle No Shanel Haynes RN documented as of this encounter Visit Diagnoses Not on filedocumented in this encounter Care Teams Metal Dresser Relationship Specialty Start Date End Date Davin Estrada MD [address] [address] [address] [place] [address] PCP - General FAMILY PRACTICE 04/12/23 Lee Villaesñor MD [address] [place] [address] Consulting Physician INTERNAL MEDICINE 05/28/23 Darell Garcia MD [address] [facility] [address] [id number] Consulting Physician CLINICAL CARDIAC ELECTROPHYSIOLOGY 02/08/24 Jun Oscar NP [address] [place], [place] [address] Nurse Practitioner NURSE PRACTITIONER 02/08/24 Judah House MD [address] [place] [phone] Consulting Physician INTERVENTIONAL CARDIOLOGY 02/12/24 documented as of this encounter
--- OUTSIDE RECORDS SUMMARY | 2024-04-27 15:45 | XMS_ITS | Encounter Summary ---
Author Organization [facility] Address [facility]6 [place] [address] [place] [address] Care Team Providers Care Seat Mender Name Role Phone Davin Estrada MD Primary Care Provider Lee Villaseñor MD Unavailable Encounter Details Date Type Department Care Team (Late st Contact Info) Description 06/13/2023 Orders Only [facility] [address] [place] [address] Judah House MD [address] [facility] [address] [place] [address] Social History Tobacco Use Types Packs/Day Years Used Date Smoking Tobacco: Never Passive Smoke Exposure: Never Smokeless Tobacco: Never Alcohol Use Standard Drinks/Week Comments Not Currently 0 (1 standard drink = 0.6 oz pur e alcohol) occasional wine C Utilities Answer Date Recorded In the past 12 months has e [employer], gas, oil, or water [employer] threatened to shut off services in your [...] heating? Not hard at all 06/06/2023 [facility] [place] of Occupat ional Health - Occupational Stress [...] place to sleep or slept in a snf (including now)? No 06/06/2023 Comments Unknown Sex and Gender Information Value Date Recorded Sex Assigned at Not on file Legal Sex Female 3:10 PM CEMENT MASON MAINTENANCE Gender Identity Not on file Sexual Orientation [...] Description 02/12/2025 11:30 AM CDT [facility] [address] [place] [address] Jun Oscar, ELEVATOR CONSTRUCTOR ELECTRIC [address] [place] [address] documented as of this encounter Goals Goal Patient Goal Type Associated Problems Recent Progress Patient-Stated? Author Patient will return to prior living situation and remain independent in ADLs upon discharge from hospital Lifestyle No Shanel Haynes RN documented as of this encounter Visit Diagnoses Diagnosis SVT (supraventricular tachycardia) (CMS/HCC [facility]) Other specified cardiac dysrhythmias documented in this encounter Care Teams Seat Mender Relationship Specialty Start Date End Date Davin Estrada MD [address] [place] [address] [address] [place] [address] PCP - General FAMILY PRACTICE 04/12/23 Lee Villaseñor MD [address] [place] [address] Consulting Physician INTERNAL MEDICINE 05/28/23 documented as of this encounter
--- OUTSIDE RECORDS SUMMARY | 2024-04-27 15:45 | XMS_ITS | Encounter Summary ---
Author Organization [facility] System Address [facility]6 [facility] [place], [place] [address] [place] [address] Care Team Providers Care Drapery Seamstress Name Role Phone Davin Estrada MD Primary Care Provider [phone] Lee Villaseñor MD Unavailable Reason for Visit * Reason Onset Date Comments Erroneous encounter-disregard 06/15/2023 Encounter Details Date Type Department Care Team (Latest Contact Info) Description 06/15/2023 [facility] Documentation [facility] Cardiovascular Care Unit [address] [place] [address] Xin Bravo RN Erroneous encounter-disregar d Social History Tobacco Use Types Packs/Day Years Used Date Smoking Tobacco: Never Passive Smoke Exposure: Never Smokeless Tobacco: Never Alcohol Use Standard Drinks/Week Comments Not Currently 0 (1 standard drink = 0.6 oz pur e alcohol) occasional wine C Utilities Answer Date Recorded In the past 12 months has e [employer], gas, oil, or water [employer] threatened to shut off services in your [...] and heating? Not hard at all 06/06/2023 [facility] [place] of Occupat ional Health - Occupational Stress [...] place to sleep or slept in a usp (including now)? 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 Author Patient will return to prior living situation and remain independent in ADLs upon discharge from hospital Lifestyle No Shanel Haynes RN documented as of this encounter Visit Diagnoses Not on filedocumented in this encounter Care Teams Drapery Seamstress Relationship Specialty Start Date End Date Davin Estrada MD [address] [place] [address] [address] [place] [address] PCP - General FAMILY PRACTICE 04/12/23 Lee Villaseñor MD [address] [place] [address] Consulting Physician INTERNAL MEDICINE 05/28/23 documented as of this encounter
--- OUTSIDE RECORDS SUMMARY | 2024-04-27 15:45 | XMS_ITS | Encounter Summary ---
Author Organization [facility] System Address [facility]6 [facility] [place] [address] [place] [address] Care Team Providers Care Director Integrated Name Role Phone Davin Estrada MD Primary Care Provider Lee Villaseñor MD Unavailable Darell Garcia MD Unavailable [phone] Oscar TALENT PARTNER Unavailable [phone] Judah House MD Unavailable [phone] Encounter Details Date Type Department Care Team (Late st Contact Info) Description 08/10/2023 MyChart Message Enc [facility]d [address] [place] [phone] Darell Garcia MD [address] [facility] [address] [address] September 12 Echo Social History Tobacco Use Types Packs/Day Years Used Date Smoking Tobacco: Never Passive Smoke Exposure: Never Smokeless Tobacco: Never Alcohol Use Standard Drinks/Week Comments Not Currently 0 (1 standard drink = 0.6 oz pur e alcohol) occasional wine C Utilities Answer Date Recorded In the past 12 months has [facility] [employer], oil, or [employer] threatened to shut off services in your [...] and heating? Not hard at all 06/06/2023 [facility] of Occupat ional Health - [...] place to sleep or slept in a intermediate (including now)? 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 Author Patient will return to prior living situation and remain independent in ADLs upon discharge from hospital Lifestyle No Shanel Haynes RN documented as of this encounter Visit Diagnoses Not on filedocumented in this encounter Care Teams Director Integrated Relationship Specialty Start Date End Date Davin Estrada MD [address] [address] [address] [place] [address] PCP - General FAMILY PRACTICE 04/12/23 Lee Villaseñor MD [address] [place] [address] Consulting Physician INTERNAL MEDICINE 05/28/23 Darell Garcia MD [address] [place] [address] [address] Consulting Physician CLINICAL CARDIAC ELECTROPHYSIOLOGY 02/08/24 Jun Oscar NP [address] [place] [id number] Nurse Practitioner NURSE PRACTITIONER 02/08/24 Judah House MD [address] [place] [phone] Consulting Physician INTERVENTIONAL CARDIOLOGY 02/12/24 documented as of this encounter
--- OUTSIDE RECORDS SUMMARY | 2024-04-27 15:45 | XMS_ITS | Encounter Summary ---
Author Organization [facility] Address [facility] [place] [address] [place] [address] Care Team Providers Care Chairman & Ceo Name Role Phone Davin Estrada MD Primary Care Provider [phone] Lee Villaseñor MD Unavailable Reason for Visit * Reason Onset Date Comments Concerns 06/15/2023 Encounter Details Date Type Department Care Team (Late st Contact Info) Description 06/15/2023 Telephone [facility] [address] [place] [address] Judah House MD [address] [facility] [address] [place] [address] Concerns Social History Tobacco Use Types Packs/Day [...] and heating? Not hard at all 06/06/2023 [facility] - Occupational [...] to sleep or slept in a senior care (including now)? 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 She thinks her pain meds are making her sick. She is asking for an alternative. I advised her to call Dr. Levi (surgeon) office. She states she is about to run out of Furosemide. She was accidentally taking the full tablet instead of 1/2. Will send in a 30 day supply of 20mg tablets. Pt v/u. E CARVER * Ana Abdul - 06/15/2023 12:08 PM CST PCCLVOICEMAILMESSAGEPCCL VOICE MAIL VM DATE/TIME:06/15/23 @ 1156am CALLER: patient PH #: [phone] PROVIDER/NEW PT: Lacy REASON FOR CALL: patient has been throwing up a lot, wonders if it is her pain medication. Also hasquestion about one of her prescriptions. REQUEST HANDLED AND HOW: IF NOT HANDLED, ENCOUNTER NOTE SENT TO: message to nurse board E CARVER documented in this encounter Plan of Treatment Upcoming Encounters Date Type Department Care Team (Late st Contact Info) Description 02/12/2025 11:30 AM CDT Office Visit [facility] el[address] [place] [phone] Jun Oscar, HOUSE PAINTER HELPER [address] [place] [address] documented as of this encounter Goals Goal Patient Goal Type Associated Problems Recent Progress Patient-Stated? Author Patient will return to prior living situation and remain independent in ADLs upon discharge from hospital Lifestyle No Shanel Haynes, RN documented as of this encounter Visit Diagnoses Not on filedocumented in this encounter Care Teams Chairman & Ceo Relationship Specialty Start Date End Date Davin Estrada MD [address] [place] [address] [address] [place] [address] PCP - General FAMILY PRACTICE 04/12/23 Lee Villaseñor MD [address] [place] [address] Consulting Physician INTERNAL MEDICINE 05/28/23 documented as of this encounter
--- OUTSIDE RECORDS SUMMARY | 2024-04-27 15:45 | XMS_ITS | Encounter Summary ---
Author Organization [facility] Address [facility] [facility] [place] [address] [place] [address] Care Team Providers Care Snuff Packing Machine Operator Name Role Phone Davin Estrada MD Primary Care Provider [phone] Lee Villaseñor MD Unavailable Encounter Details Date Type Department Care Team (Late st Contact Info) Description 07/16/2023 Orders Only [facility] [address] [place] [address] Cintia Garcia MD [address] [facility] [address] [address] Social History Tobacco Use Types Packs/Day Years [...] and heating? Not hard at all 06/06/2023 [facility] [place] [facility] - Occupational Stress [...] on file Legal Sex Female 3:10 PM SIDE BOSS Gender Identity Not on file Sexual Orientation [...] 11:30 AM CDT Office Visit [facility] [address] [place] [address] [phone] Jun Oscar, SURVEY METHODOLOGIST [address] [place] [address] documented as of this encounter Goals Goal Patient Goal Type Associated Problems Recent Progress Patient-Stated? Author Patient will return to prior living situation and remain independent in ADLs upon discharge from hospital Lifestyle No Shanel Haynes, RN documented as of this encounter Results * ELECTROCARDIOGRAM (07/17/2023 11:10 AM CDT) 07/17/2023 11:1 0 AM CDT Narrative [facility] - 07/17/2023 11:38 AM CDT ? [facility] [place] ?[address] [place], [place] ??[address] ? Test Date: ?2023-07-17 Pat Name: ? KENDY CRAIG ? Department: ?? 105 ? Room: ? Gender: ? Female ? Engine Lathe Operator: ?? ssb : ?1945 ? Requested By: BASIL IYH-FK-OAMQU Order Number: [id number] ?Reading MD: ?? Basil Fxu-Pi-Chewb ? Measurements Intervals ?[place] ? Rate: ? 61 ? P: ?146 MI: ? 166 ?QRS: ?82 QRSD: ? 97 ? T: ?177 QT: ? 429 ? QTc: ?434 ? Interpretive Statements Normal Sinus Rhythm POSSIBLE LEFT ATRIAL ENLARGEMENT NONSPECIFIC T-WAVE ABNORMALITY Procedure Note Cintia Garcia MD - 07/17/2023 [place] [facility], [place] [address] [place] [address] Test Date: 2023-07-17 Pat Name: KENDY CRAIG Department: 105 Room: Gender: Female Engine Lathe Operator: jes : 1945 Requested By: CINTIA GARCIA Order Number: [id number] Reading MD: Cintia Garcia Measurements Intervals [place] Rate: 61 P: 146 MI: 166 QRS: 82 QRSD: 97 T: 177 QT: 429 QTc: 434 Interpretive Statements Normal Sinus Rhythm POSSIBLE LEFT ATRIAL ENLARGEMENT NONSPECIFIC T-WAVE ABNORMALITY us Cintia Garcia MD PROCEDURES-ORDERABLE NO CH ARGE Final Result [facility] documented in this encounter Visit Diagnoses Diagnosis SVT (supraventricular tachycardia) (CMS/HCC HHS/HCC)- Primary Other specified cardiac dysrhythmias SVT (supraventricular tachycardia) (CMS/HCC HHS/HCC) Other specified cardiac dysrhythmias documented in this encounter Care Teams Snuff Packing Machine Operator Relationship Specialty Start Date End Date Davin Estrada MD [address] [place] [address] [address] [place] [address] PCP - General FAMILY PRACTICE 04/12/23 Lee Villaseñor MD [address] [place] [address] Consulting Physician INTERNAL MEDICINE 05/28/23 documented as of this encounter
--- OUTSIDE RECORDS SUMMARY | 2024-04-27 15:46 | XMS_ITS | Encounter Summary ---
Author Organization [facility] Address [facility] [place] [address] [place] [address] Care Team Providers Care Mail Order Biller Name Role Phone Davin Estrada MD Primary Care Provider [phone] Lee Villaseñor MD Unavailable Reason for Visit * Auth/Cert (Routine) Specialty Diagnoses / Procedures Referred By Contac t Referred To Contact Diagnoses CAD Procedures CORONARY ARTERY BYPASS, SANDY Cuong Levi MD [address] [place] [address] Phone: tel: fax: Referral ID Status Reason Start Date Expiration Date Visits Re quested Visits Authorized [id number] 1 1 Encounter Details Date Type Department Care Team (Late st Contact Info) Description 06/04/2023 12:54 PM KEYBOARD TEACHER - 06/04/2023 1:38 PM [facility] Hospital Encounter [facility] [address] [place] [address] Cuong Levi MD [address] [place] [address] Discharge Disposition: Home or Self Care (Routine Discharge) Social History Tobacco Use Types Packs/Day Years Used Date Smoking Tobacco: Never Passive Smoke Exposure: Never Smokeless Tobacco: Never Alcohol Use Standard Drinks/Week Comments Not Currently 0 (1 standard drink = 0.6 oz pur e alcohol) occasional wine [facility] Utilities Answer Date Recorded In the past 12 months has th e electric, gas, oil, or water company threatened to shut off services in your home? No 04/27/2023 Humiliation, Afraid, Rape, and Kick questionnair e Answer Date Recorded Within the last year, have y ou been afraid of your partner or ex-partner? No 04/27/2023 Within the last year, have y ou been humiliated or emotionally abused in other ways by your partner or ex-partner? No Within the last year, have y ou been kicked, hit, slapped, or otherwise physically hurt by your partner or ex-partner? No 04/27/2023 Within the last year, have y ou been raped or forced to have any kind of sexual activity by your partner or ex-partner? No 04/27/2023 Overall Financial Resource Strain (CARDIA) Answe r Date Recorded How hard is it for you to pa y for the very basics like food, housing, medical care, and heating? Not hard at all 04/27/2023 [facility] [place] [facility] Occupat ional Health - Occupational Stress [...] the money to buy more. Never true 04/27/19 24 Within the past 12 months, t he food you bought just didn't last and you didn't have money to get more. Never true 04/27/2023 PRAPARE - Transportation Answer Date Re corded In the past 12 months, has l ack of transportation kept you from medical appointments or from getting medications? No 08/2023 In the past 12 months, has l ack of transportation kept you from meetings, work, or from getting things needed for daily living? No 04/27/2023 Housing Stability Vital Sign Answer Michael e Recorded In the last 12 months, was t here a time when you were not able to pay the mortgage or rent on time? No 04/27/2023 In the last 12 months, how many places have you lived? 1 04/27/2023 In the last 12 months, was t here a time when you did not have a steady place to sleep or slept in a custodial (including now)? No 04/27/2023 Comments Unknown Sex and Gender Information Value Date Recorded Sex Assigned at Not on file Legal Sex Female 3:10 PM KEYBOARD TEACHER Gender Identity Not on file Sexual Orientation Not on file documented as of this encounter Functional Status * Are you deaf or do you have serious difficulty hearing Answer Date of Assessment Author Status No 04/27/2023 11:00 PM Pia Hamilton RN Active * Are you blind or do you have serious difficulty seeing, even when wearing glasses? Answer Date of Assessment Author Status No 04/27/2023 11:00 PM Pia Hamilton RN Active * Do you have serious difficulty walking or climbing stairs? Answer Date of Assessment Author Status No 04/27/2023 11:00 PM Pia Hamilton RN Active * Do you have difficulty dressing or bathing? Answer Date of Assessment Author Status No 04/27/2023 11:00 PM Pia Hamilton RN Active * Because of a physical, mental, or emotional condition, do you have difficulty doing errands alone such as visiting a doctor's office or shopping? Answer Date of Assessment Author Status No 04/27/2023 11:00 PM Pia Hamilton RN Active documented as of this encounter Mental Status * Because of a physical, mental, or emotional condition, do you have serious difficulty concentrating, remembering, or making decisions? Answer Entry Date Author Status No 04/27/2023 11:00 PM Pia Hamilton RN Active documented in this encounter Medications [...] by mouth nightly as needed for Sleep. vitamin B-12 (CYANOCOBALAMIN) 500 MCG tablet Take 1 tablet (500 mcg total) by mouth daily. vitamin C (ASCORBIC ACID) 500 MG tablet Take 2 tablets (1,000 mg total) by mouth daily. Vitamin D3 (CHOLECALCIFEROL ) 50 mcg tablet Take 1 tablet (50 mcg total) by mouth daily. vitamin E 180 MG (400 UNIT) capsule Take 1 capsule (400 Units total) by mouth daily. acetaminophen (TYLENOL) 500 MG tablet Take 1 tablet (500 mg total) by mouth every 6 (six) hours as needed. 30 tablet 06/11/2023 4 amiodarone 400 MG Tab Take 200 mg by mouth 2 (two) times daily. Take 2 pills twice daily for 2 weeks. Then take 1 tablet once a day. 70 tablet 06/11/2023 4 apixaban (ELIQUIS) 5 MG tablet Take 1 tablet (5 mg total) by mouth 2 (two) times daily. 60 tablet 1 06/11/2023 4 furosemide (LASIX) 40 MG tablet Take 0.5 tablets (20 mg total) by mouth daily. 7 tablet 06/11/2023 4 hydrALAZINE (APRESOLINE) 25 MG tablet Take 1 tablet (25 mg total) by mouth every 8 (eight) hours. 120 tablet 06/11/2023 4 metoprolol succinate ER (TOPROL-XL) 25 MG 24 hr tabletIndication s:SVT (supraventricula r tachycardia) (CMS/HCC HHS/HCC) Take 1 tablet (25 mg total) by mouth daily. 90 tablet 3 05/28/2023 4 metoprolol succinate ER (TOPROL-XL) 25 MG 24 hr tabletIndication s:SVT (supraventricula r tachycardia) (CMS/HCC HHS/HCC) Take 1 tablet (25 mg total) by mouth 2 (two) times daily. 30 tablet 4 05/29/2023 4 metoprolol succinate ER (TOPROL-XL) 50 MG 24 hr tabletIndication s:SVT (supraventricula r tachycardia) ([facility]/HCC [facility]/HCC) Take 0.5 tablets (25 mg total) by mouth 2 (two) times daily. 30 tablet 3 05/29/2023 4 oxyCODONE-acetam inophen (PERCOCET) 5-325 MG tabletIndication s:Acute Pain < 7 Day Supply Indications: Acute Pain < 7 Day Supply Dispense twenty eight tablets. Take one tablet as needed every four hours for pain. Do not take more than 4,000mg of acetaminophen every 24 hours. No refills. 28 tablet 06/11/2023 4 potassium chloride CR (KLOR-CON M) 20 MEQ tablet Take 1 tablet (20 mEq total) by mouth daily for 5 days. 5 tablet 06/12/2023 4 vitamin ( PLUS) 27-1 MG tablet [...] 02/12/2025 11:30 AM CDT Office Visit [facility] [address] [place] [id number] Jun Oscar, ENDO TECH [address] [place], [place] [address] documented as of this encounter Procedures Procedure Name Priority Date/Time Associated Diagnosis Comments XR CHEST PA+LAT Today 06/04/2023 1:50 PM KEYBOARD TEACHER CAD (coronary artery disease) HIV 1 ANTIGEN(S), WITH HIV-1 AND HIV-2 ANTIBODIES Routine 06/04/2023 1:37 PM KEYBOARD TEACHER CAD (coronary artery disease) HEMOGLOBIN, GLYCOSYLATED Routine 06/04/2023 1:37 PM KEYBOARD TEACHER CAD (coronary artery disease) TYPE & SCREEN Routine 06/04/2023 1:37 PM KEYBOARD TEACHER CAD (coronary artery disease) HC URINALYSIS AUTO W/MICRO Routine 06/04/2023 1:37 PM KEYBOARD TEACHER CAD (coronary artery disease) PARTIAL THROMBOPLASTIN TIME,PTT Routine 06/04/2023 1:37 PM KEYBOARD TEACHER CAD (coronary artery disease) PROTHROMBIN TIME, VENOUS Routine 06/04/2023 1:37 PM KEYBOARD TEACHER CAD (coronary artery disease) COMPREHENSIVE METABOLIC PANEL Routine 06/04/2023 1:37 PM KEYBOARD TEACHER CAD (coronary artery disease) CBC W/DIFF AUTOMATED Routine 06/04/2023 1:37 PM KEYBOARD TEACHER CAD (coronary artery disease) CULTURE URINE (OUTPATIENTS) Routine 06/04/2023 1:36 PM KEYBOARD TEACHER SVT (supraventricular tachycardia) MRSA SCREENING Routine 06/04/2023 1:29 PM KEYBOARD TEACHER SVT (supraventricular tachycardia) ECG 12-LEAD Routine 06/04/2023 1:13 PM KEYBOARD TEACHER CAD (coronary artery disease) documented in this encounter Results * XR CHEST PA+LAT (06/04/2023 1:50 PM KEYBOARD TEACHER) Anatomical Region Laterality Modality Chest Radiographic Fabiola ging 06/05/2023 7:08 AM KEYBOARD TEACHER Impressions 06/05/2023 7:08 AM KEYBOARD TEACHER IMPRESSION: Negative chest Ordered By: CUONG LEVI Interpreted By: Javier Mayfield MD, 06/05/2023 7:08 AM Narrative 06/05/2023 7:08 AM KEYBOARD TEACHER 2 VIEWS OF THE CHEST Clinical history: Hypertension Comparison: None 2 views of the chest demonstrate the cardiac silhouette to be normal in size and appearance. The pulmonary vessels are normally distributed. The Lungs are clear. No consolidations or effusions are seen. Procedure Note Javier Mayfield MD - 06/05/2023 2 VIEWS OF THE CHEST Clinical history: Hypertension Comparison: None 2 views of the chest demonstrate the cardiac silhouette to be normal insize and appearance. The pulmonary vessels are normally distributed. TheLungs are clear. No consolidations or effusions are seen. IMPRESSION: Negative chest Ordered By: CUONG LEVI Interpreted By: Javier Mayfield MD, 06/05/2023 7:08 AM Cuong Levi MD GENERAL IMAGING Final Resul t * (ABNORMAL) URINALYSIS (06/04/2023 1:37 PM KEYBOARD TEACHER) COLOR (U) COLORLESS 06/04/2023 2:02 PM [facility] TRANSPARENCY CLEAR 06/04/2023 2:02 PM [facility] SPECIFIC GRAVITY (U) 1.009 1.002 - 1.035 06/04/2023 2:02 PM [facility] U PH 5.0 5 - 8 06/04/2023 2:02 PM [facility] PROTEIN RANDOM (U) NEGATIVE NEGATIVE 06/04/2023 2:02 PM [facility] GLUCOSE (U) NEGATIVE NEGATIVE MG/DL 06/04/2023 2:02 PM KEYBOARD TEACHER [facility] KETONES MG/DL (U) NEGATIVE NEGATIVE 06/04/2023 2:02 PM KEYBOARD TEACHER [facility] BILIRUBIN (U) NEGATIVE NEGATIVE 06/04/2023 2:02 PM KEYBOARD TEACHER [facility] BLOOD (U) NEGATIVE NEGATIVE 06/04/2023 2:02 PM KEYBOARD TEACHER [facility] NITRITES NEGATIVE NEGATIVE 06/04/2023 2:02 PM KEYBOARD TEACHER [facility] UROBILINOGEN NORMAL 0 - 1 EU/DL 06/04/2023 2:02 PM KEYBOARD TEACHER [facility] LEUKOCYTES (U) 3+(A) NEGATIVE 06/04/2023 2:02 PM KEYBOARD TEACHER [facility] RBC/HPF NONE 0 - 3 /HPF 06/04/2023 2:02 PM KEYBOARD TEACHER [facility] WBC/HPF 25(H) 0 - 6 /HPF 06/04/2023 2:02 PM KEYBOARD TEACHER [facility] BACTERIA (U) PRESENT /HPF 06/04/2023 2:02 PM KEYBOARD TEACHER [facility] URINE SPECIMEN OBTAINED BY CLEAN CATCH PROCEDURE / Unknown 06/04/2023 1:37 PM KEYBOARD TEACHER Cuong Levi MD URINE ORDERABLES Final Resu lt [facility] [address] [place] [address], [id number] * TYPE & SCREEN (06/04/2023 1:37 PM KEYBOARD TEACHER) UNITS ORDERED 4 06/05/2023 10:39 AM KEYBOARD TEACHER [facility] ABO/RH A NEGATIVE 06/04/2023 2:47 PM KEYBOARD TEACHER [facility] ANTIBODY SCREEN NEGATIVE 2:47 PM KEYBOARD TEACHER [facility] SAMPLE EXPIRATION 06/07/2023,2359 06/04/2023 1:52 PM KEYBOARD TEACHER [facility] BLOOD UNIT NUMBER [id number] 06/05/2023 8:50 AM KEYBOARD TEACHER [facility] PRODUCT: PC LEUKOPOOR 06/05/2023 8:50 AM KEYBOARD TEACHER [facility] UNIT DIVISION 00 06/05/2023 8:50 AM KEYBOARD TEACHER [facility] BLOOD UNIT STATUS TRANSFUSED,FINAL 06/06/2023 4:21 PM KEYBOARD TEACHER [facility] ISSUE DATE/TIME [id number] 4:21 PM KEYBOARD TEACHER [facility] PRODUCT CODE [id number] 06/06/2023 4:21 PM KEYBOARD TEACHER [facility] ABO/RH Unit A NEG 06/06/2023 4:21 PM KEYBOARD TEACHER [facility] ABO/RH UNIT ISBT CODE 0606/06/2023 4:21 PM KEYBOARD TEACHER [facility] BLOOD UNIT EXPIRATION DATE [id number] 06/06/2023 4:21 PM KEYBOARD TEACHER [facility] TRANSFUSION STATUS OK TO TRANSFUSE 06/05/2023 8:50 AM KEYBOARD TEACHER [facility] CROSSMATCH COMPATIBLE-EXM 06/05/2023 8:50 AM [facility] BLOOD UNIT NUMBER [id number] 06/05/2023 8:50 AM [facility] PRODUCT: PC LEUKOPOOR 06/05/2023 8:50 AM KEYBOARD TEACHER [facility] UNIT DIVISION 00 06/05/2023 8:50 AM KEYBOARD TEACHER [facility] BLOOD UNIT STATUS TRANSFUSED,FINAL 06/06/2023 4:21 PM KEYBOARD TEACHER [facility] ISSUE DATE/TIME [id number] 024 4:21 PM KEYBOARD TEACHER [facility] PRODUCT CODE [id number] 06/06/2023 4:21 PM KEYBOARD TEACHER [facility] ABO/RH Unit A NEG 06/06/2023 4:21 PM KEYBOARD TEACHER [facility] ABO/RH UNIT ISBT CODE 0606/06/2023 4:21 PM KEYBOARD TEACHER [facility] BLOOD UNIT EXPIRATION DATE [id number] 06/06/2023 4:21 PM KEYBOARD TEACHER [facility] TRANSFUSION STATUS OK TO TRANSFUSE 06/05/2023 8:50 AM KEYBOARD TEACHER [facility] CROSSMATCH COMPATIBLE-EXM 06/05/2023 8:50 AM [facility] BLOOD UNIT NUMBER [id number] 06/05/2023 10:39 AM KEYBOARD TEACHER [facility] PRODUCT: PC LEUKOPOOR 06/05/2023 10:39 AM KEYBOARD TEACHER [facility] UNIT DIVISION 00 06/05/2023 10:39 AM KEYBOARD TEACHER [facility] BLOOD UNIT STATUS UNIT RELEASED 06/05/2023 1:15 PM KEYBOARD TEACHER [facility] TRANSFUSION STATUS OK TO TRANSFUSE 06/05/2023 10:39 AM KEYBOARD TEACHER [facility] CROSSMATCH COMPATIBLE-EXM 06/05/2023 10:39 AM KEYBOARD TEACHER [facility] BLOOD UNIT NUMBER [id number] 06/05/2023 10:39 AM KEYBOARD TEACHER [facility] PRODUCT: PC LEUKOPOOR 06/05/2023 10:39 AM KEYBOARD TEACHER [facility] UNIT DIVISION 00 06/05/2023 10:39 AM [facility] BLOOD UNIT STATUS UNIT RELEASED 06/05/2023 1:14 PM KEYBOARD TEACHER [facility] TRANSFUSION STATUS OK TO TRANSFUSE 06/05/2023 10:39 AM [facility] CROSSMATCH COMPATIBLE-EXM 06/05/2023 10:39 AM KEYBOARD TEACHER [facility] 06/04/2023 1:37 PM KEYBOARD TEACHER Cuong Levi MD BLOOD BANK TEST ORDERABLES Final Result [facility] [address] [place] [address], [id number] * PROTIME/INR, VENOUS (PROTHROMBIN TIME) (06/04/2023 1:37 PM KEYBOARD TEACHER) PROTIME 11.5 9.4 - 12.5 SEC 06/04/2023 2:12 PM KEYBOARD TEACHER [facility] INR 1.0 0.8 - 1.1 06/04/2023 2:12 PM KEYBOARD TEACHER [facility] 06/04/2023 1:37 PM KEYBOARD TEACHER us Cuong Levi MD LABORATORY Final Resul t Performing Organization Address [facility] de Phone Number [facility] [address] [place] [address], [id number] * PARTIAL THROMBOPLASTIN TIME,PTT (06/04/2023 1:37 PM KEYBOARD TEACHER) Pathologist [facility] PTT 27.2 25.1 - 36.5 SEC 06/04/2023 2:14 PM KEYBOARD TEACHER [facility] 06/04/2023 1:37 PM KEYBOARD TEACHER us Cuong Levi MD LABORATORY Final Resul t Performing Organization Address [facility] de Phone Number [facility] [address] [place] [address], [place] [phone] * HIV 1 ANTIGEN(S), WITH HIV-1 AND HIV-2 ANTIBODIES (06/04/2023 1:37 PM KEYBOARD TEACHER) Pathologist [facility] HIV 1/2 AB+ HIV1 P24 AG NON-REACTI VE NON-REACTI VE 06/04/2023 7:16 PM KEYBOARD TEACHER [facility] Comment:HIV 1 p24 Ag and HIV 1/ HIV 2 Ab not detected. 06/04/2023 1:37 PM KEYBOARD TEACHER us Cuong Levi MD LABORATORY Final Resul t Performing Organization Address [facility] Co de Phone Number [facility] [address] [place] [address], [place] [phone] [id number] * HEMOGLOBIN, GLYCOSYLATED (06/04/2023 1:37 PM KEYBOARD TEACHER) [facility] HGB A1C 5.3 <5.7 % 06/04/2023 2:40 PM KEYBOARD TEACHER [facility] ESTIMATED AVG GLUCOSE 105 74 - 114 MG/DL 06/04/2023 2:40 PM KEYBOARD TEACHER [facility] 06/04/2023 1:37 PM KEYBOARD TEACHER Cuong Levi MD LABORATORY Final Resul t [facility] [address] [place] [address], [place] [phone] * (ABNORMAL) COMPREHENSIVE METABOLIC PANEL (06/04/2023 1:37 PM KEYBOARD TEACHER) [facility] SODIUM S/P/B 133(L) 136 - 145 MMOL/L 06/04/2023 2:24 PM KEYBOARD TEACHER [facility] POTASSIUM S/P/B 4.0 3.5 - 5.1 MMOL/L 06/04/2023 2:24 PM [facility] CHLORIDE S/P/B 102 98 - 107 MMOL/L 06/04/2023 2:24 PM KEYBOARD TEACHER [facility] CO2 28.1 21.0 - 32.0 MMOL/L 06/04/2023 2:24 PM KEYBOARD TEACHER [facility] GLUCOSE 86 74 - 106 MG/DL 06/04/2023 2:24 PM KEYBOARD TEACHER [facility] BUN 16 7 - 18 MG/DL 06/04/2023 2:24 PM KEYBOARD TEACHER [facility] CREATININE S/P/B 0.88 0.55 - 1.02 MG/DL 06/04/2023 2:24 PM KEYBOARD TEACHER [facility] CALCIUM S/P/B 8.9 8.5 - 10.1 MG/DL 06/04/2023 2:24 PM [facility] BILIRUBIN TOTAL S/P/B 0.4 0.2 - 1.0 MG/DL 06/04/2023 2:24 PM [facility] ALKALINE PHOSPHATASE S/P/B 56 55 - 142 U/L 06/04/2023 2:24 PM [facility] AST 21 15 - 37 U/L 06/04/2023 2:24 PM [facility] ALT 22 13 - 56 U/L 06/04/2023 2:24 PM [facility] TOTAL PROTEIN S/P/B 7.1 6.4 - 8.2 G/DL 06/04/2023 2:24 PM [facility] ALBUMIN S/P/B 3.7 3.4 - 5.0 G/DL 06/04/2023 2:24 PM [facility] ANION GAP 2.9(L) 5.0 - 15.0 MMOL/L 06/04/2023 2:24 PM [facility] OSMOLALITY (CALC) 276 MOSM/KG 024 2:24 PM [facility] Comment:REFERENCE RANGE NOT ESTABLISHED GFR ESTIMATE 68(L) >90 ML/MIN/1. 73 M2 06/04/2023 2:24 PM [facility] GFR NOTES GFR REFERENCE S: 06/04/2023 2:24 PM [facility] Comment: THE ESTIMATED GFR IS CALCULATED USING THE 2020 CKD-EPI EQUATION. THE FOLLOWING CATEGORIES FOR GRADING RENAL FUNCTION ARE RECOMMENDED BY THE INTERNATIONAL SOCIETY OF NEPHROLOGY (KDIGO 2012 CLINICAL PRACTICE GUIDELINE). G1,NORMAL OR HIGH: >89 ml/min/1.73 m2 G2,MILDLY DECREASED: 60-89 ml/min/1.73 m2 G3A,MILDLY TO MODERATELY DECREASED: 45-59 ml/min/1.73 m2 G3B,MODERATELY TO SEVERELY DECREASED: 30-44 ml/min/1.73 m2 G4,SEVERELY DECREASED: 15-29 ml/min/1.73 m2 G5,KIDNEY FAILURE: <15 ml/min/1.73 m2 06/04/2023 1:37 PM KEYBOARD TEACHER Cuong Levi MD LABORATORY Final Resul t [facility] [address] [place] [address], [id number] * (ABNORMAL) CBC W/DIFF AUTOMATED (06/04/2023 1:37 PM KEYBOARD TEACHER) WBC 4.00 4.00 - 10.80 x10'3/uL 06/04/2023 1:53 PM KEYBOARD TEACHER [facility] RBC 3.62(L) 4.10 - 5.40 x10'6/uL 06/04/2023 1:53 PM KEYBOARD TEACHER [facility] HGB 11.5(L) 12.0 - 16.0 G/DL 06/04/2023 1:53 PM KEYBOARD TEACHER [facility] HCT 35.1(L) 36.0 - 47.0 % 06/04/2023 1:53 PM KEYBOARD TEACHER [facility] MCV 97.0 78.0 - 100.0 FL 06/04/2023 1:53 PM KEYBOARD TEACHER [facility] MCH 31.8(H) 27.0 - 31.0 PG 06/04/2023 1:53 PM KEYBOARD TEACHER [facility] MCHC 32.8(L) 33.0 - 36.0 G/DL 06/04/2023 1:53 PM KEYBOARD TEACHER [facility] RDW 12.7 11.5 - 14.5 % 06/04/2023 1:53 PM KEYBOARD TEACHER [facility] PLT 227 150 - 350 x10'3/uL 06/04/2023 1:53 PM KEYBOARD TEACHER [facility] MPV 10.0 7.4 - 10.4 FL 06/04/2023 1:53 PM KEYBOARD TEACHER [facility] ABS. NEUTROPHILS 2.24 1.60 - 8.30 x10'3/uL 06/04/2023 1:53 PM KEYBOARD TEACHER [facility] ABS. LYMPHOCYTES 1.28 0.80 - 4.70 x10'3/uL 06/04/2023 1:53 PM KEYBOARD TEACHER [facility] ABS. MONOCYTES 0.38 0.00 - 1.50 x10'3/uL 06/04/2023 1:53 PM KEYBOARD TEACHER [facility] ABS. EOSINOPHILS 0.04 0.00 - 0.40 x10'3/uL 06/04/2023 1:53 PM KEYBOARD TEACHER [facility] ABS. BASOPHILS 0.05 0.00 - 0.20 x10'3/uL 06/04/2023 1:53 PM KEYBOARD TEACHER [facility] ABS. IMMATURE GRANULOCYTES 0.01 0.00 - 0.03 x10'3/uL 06/04/2023 1:53 PM KEYBOARD TEACHER [facility] ABS. NUCLEATED RBC'S 0.00 0.0 x10'3/uL 06/04/2023 1:53 PM KEYBOARD TEACHER [facility] 06/04/2023 1:37 PM KEYBOARD TEACHER Cuong Levi MD LABORATORY Final Resul t [facility] [address] [place] [address], [id number] * CULTURE, URINE (OUTPATIENTS) (06/04/2023 1:36 PM KEYBOARD TEACHER) SPEC DESCRIPTION URINE CLEAN CATCH 06/04/2023 1:34 PM KEYBOARD TEACHER [facility] SPECIAL REQUESTS NO SPECIAL REQUEST 06/04/2023 1:34 PM KEYBOARD TEACHER [facility] CULTURE RESULT FEW CONTAMINANTS 05/24 7:50 AM KEYBOARD TEACHER [facility] URINE SPECIMEN OBTAINED BY CLEAN CATCH PROCEDURE / Unknown 06/04/2023 1:36 PM KEYBOARD TEACHER 06/04/2023 1:37 PM KEYBOARD TEACHER Cuong Levi MD MICROBIOLOGY - GENERAL BAR ALBRIGHT Final Result Performing Organization Address [facility] Co de Phone Number [facility] [address] [place] [address], [phone] * MRSA PCR nares Screening (06/04/2023 1:29 PM KEYBOARD TEACHER) SPECIMEN SOURCE RESPIRATORY, NOSE 06/04/2023 1:27 PM KEYBOARD TEACHER [facility] MRSA BY PCR NASAL METHICILLIN RESISTANT STAPH AUREUS NOT DETECTED METHICILLIN RESISTANT STAPH AUREUS NOT DETECTED 06/05/2023 12:00 PM KEYBOARD TEACHER [facility] NASAL STRUCTURE / Unknown 06/04/2023 1:29 PM KEYBOARD TEACHER Cuong Levi MD MICROBIOLOGY - GENERAL BAR ALBRIGHT Final Result Performing Organization Address [facility] Co de Phone Number [facility] [address] [place] [address], [phone] * ECG 12 lead (06/04/2023 1:13 PM KEYBOARD TEACHER) 06/04/2023 1:13 PM KEYBOARD TEACHER Narrative [facility] - 06/04/2023 7:26 PM KEYBOARD TEACHER ? [facility] ?[address], [place] ??[address] ? Test Date: ?2023-06-04 Pat Name: ? KENDY KINDER ? Department: ?? 1 ? Room: ? Gender: ? Female ? 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 Sebastian : ?1945 ? Requested By: CUONG LEVI Order Number: [id number] ? Reading MD: ?? Belinda Bocanegra ? Measurements Intervals ?Herrick ? Rate: ? 64 ? P: ?69 ND: ? 161 ?QRS: ?56 QRSD: ? 94 ? T: ?61 QT: ? 440 ? QTc: ?455 ? Interpretive Statements SINUS RHYTHM LEFT VENTRICULAR HYPERTROPHY AND ST-T CHANGE ??[VOLTAGE CRITERIA PLUS ST/T ABNORMALITY] OARD TEACHER Procedure Note Belinda Bocanegra MD - 06/04/2023 [facility] [address] [place] [address] Test Date: 2023-06-04 Pat Name: KENDY SALCIDO Department: 1 Room: Gender: Female Ice Cream Chef: Sebastian : 1945 Requested By: CUONG LEVI Order Number: [id number] Reading MD: Belinda Bocanegra Measurements Intervals Herrick Rate: 64 P: 69 ND: 161 QRS: 56 QRSD: 94 T: 61 QT: 440 QTc: 455 Interpretive Statements SINUS RHYTHM LEFT VENTRICULAR HYPERTROPHY AND ST-T CHANGE [VOLTAGE CRITERIA PLUSST/T ABNORMALITY] OARD TEACHER Cuong Levi MD ECG ORDERABLES Final Resul t [facility] documented in this encounter Visit Diagnoses Diagnosis SVT (supraventricular tachycardia) ([facility] HHS/HCC)- Primary Other specified cardiac dysrhythmias CAD (coronary artery disease) Coronary atherosclerosis of unspecified type of vessel, [place] or graft documented in this encounter Care Teams Mail Order Biller Relationship Specialty Start Date End Date Davin Estrada MD [address] [place] [address] [address] [place] [address] PCP - General FAMILY PRACTICE 04/12/23 Lee Villaseñor MD [address] [place] [address] Consulting Physician INTERNAL MEDICINE 05/28/23 documented as of this encounter
--- OUTSIDE RECORDS SUMMARY | 2024-04-27 15:46 | XMS_ITS | Encounter Summary ---
Author Organization [facility] Address [facility] [address] [place] [address] Care Team Providers Care Library Supervisor Name Role Phone Davin Estrada MD Primary Care Provider [phone] Lee Villaseñor MD Unavailable Reason for Visit * Auth/Cert (Routine) Specialty Diagnoses / Procedures Referred By Contac t Referred To Contact Diagnoses CAD Procedures CORONARY ARTERY BYPASS, SANDY Cuong Levi MD [address] [place] [address] Phone: tel: fax: Referral ID Status Reason Start Date Expiration Date Visits Re quested Visits Authorized [id number] 1 1 Encounter Details Date Type Department Care Team (Late st Contact Info) Description 06/04/2023 1:39 PM WINDOWS APPLICATION DEVELOPER - 06/04/2023 11:59 PM [facility] Hospital Encounter [facility] Diagnostic Imaging [address] [place] [address] Cuong Levi MD [address] [place] [address] Discharge Disposition: Home or Self Care (Routine Discharge) Social History Tobacco Use Types Packs/Day Years Used Date Smoking Tobacco: Never Passive Smoke Exposure: Never Smokeless Tobacco: Never Alcohol Use Standard Drinks/Week Comments Not Currently 0 (1 standard drink = 0.6 oz pur e alcohol) occasional wine [facility] Utilities Answer Date Recorded In the [...] and heating? Not hard at all 04/27/2023 [facility] [place] [facility] Occupat ional Health - Occupational Stress [...] slept in a intermediate (including now)? No 04/27/2023 Comments Unknown Sex and Gender Information Value Date Recorded Sex Assigned at Not on file Legal Sex Female 3:10 PM WINDOWS APPLICATION DEVELOPER Gender Identity Not on file Sexual Orientation [...] s:SVT (supraventricula r tachycardia) (CMS/HCC HHS/HCC) Take 0.5 tablets (25 mg total) by [...] Office Visit [facility] [address] [place] [phone] Jun Oscar, SENIOR JAVA J2EE DEVELOPER [address] [place], [place] [address] documented as of this encounter Procedures Procedure Name Priority Date/Time Associated Diagnosis Comments XR CHEST PA+LAT Today 06/04/2023 1:50 PM WINDOWS APPLICATION DEVELOPER CAD (coronary artery disease) documented in this encounter Results * XR CHEST PA+LAT (06/04/2023 1:50 PM WINDOWS APPLICATION DEVELOPER) Anatomical Region Laterality Modality Chest Radiographic Fabiola ging 06/05/2023 7:08 AM WINDOWS APPLICATION DEVELOPER Impressions 06/05/2023 7:08 AM WINDOWS APPLICATION DEVELOPER IMPRESSION: Negative chest Ordered By: CUONG LEVI Interpreted By: Javier Mayfield MD, 06/05/2023 7:08 AM Narrative 06/05/2023 7:08 AM WINDOWS APPLICATION DEVELOPER 2 VIEWS OF THE CHEST Clinical history: [...] Javier Mayfield MD, 06/05/2023 7:08 AM Cuong Leiv MD GENERAL IMAGING Final Resul t documented in this encounter Visit Diagnoses Not on filedocumented in this encounter Care Teams Library Supervisor Relationship Specialty Start Date End Date Davin Estrada MD [address] [place] [address] [address] [place] [address] PCP - General FAMILY PRACTICE 04/12/23 Lee Villaseñor MD [address] [place] [address] Consulting Physician INTERNAL MEDICINE 05/28/23 documented as of this encounter
--- OUTSIDE RECORDS SUMMARY | 2024-04-27 15:46 | XMS_ITS | Encounter Summary ---
Author Organization [facility] Address [facility] 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) Procedures USV PSEUDO ANEURYSM LOW RT Lee Joshi MD [address] [place] [address] Phone: tel: fax: Referral ID Status Reason Start Date Expiration Date Visits Re quested Visits Authorized [id number] Closed 05/28/2023 06/27/2024 1 1 NG TEACHER Reason for Visit * Imaging (Emergency) - Closed Specialty Diagnoses / Procedures Referred By Contac t Referred To Contact RADIOLOGY Diagnoses 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) Procedures USV PSEUDO ANEURYSM LOW RT Lee Joshi MD [address] [place] [address] Phone: tel: fax: Referral ID Status Reason Start Date Expiration Date Visits Re quested Visits Authorized [id number] Closed 05/28/2023 06/27/2024 1 1 Encounter Details Date Type Department Care Team (Latest Contact Info) Description 05/28/2023 4:00 PM SEWING TEACHER - 05/28/2023 11:59 PM [facility] Hospital Encounter [facility] Vascular Ultrasound - [facility] [address] [place] [address] Lee Joshi MD [address] [place] [address] Discharge Disposition: Home or Self Care (Routine Discharge) Social History Tobacco Use Types Packs/Day Years Used Date Smoking Tobacco: Never Passive Smoke Exposure: Never Smokeless Tobacco: Never Alcohol Use Standard Drinks/Week Comments Not Currently 0 (1 standard drink = 0.6 oz pur e alcohol) occasional wine [facility] Utilities Answer Date Recorded In the past 12 months has [employer] electric, gas, oil, or water [employer] threatened to shut off services in your [...] and heating? Not hard at all 04/27/2023 [facility] [place] of Occupat ional Health - Occupational Stress [...] slept in a residential (including now)? No 04/27/2023 Comments Unknown Sex and Gender Information Value Date Recorded Sex Assigned at Not on file Legal Sex Female 3:10 PM SEWING TEACHER Gender Identity Not on file Sexual [...] Author Status No 04/27/2023 11:00 PM Pia Haimlton RN Active * Do you have serious [...] 24 hr tabletIndication s:SVT (supraventricula r tachycardia) ([facility] HHS/HCC) Take 1 tablet (25 mg total) by mouth daily. 90 tablet 3 05/28/2023 4 metoprolol succinate ER (TOPROL-XL) 25 MG 24 hr tabletIndication s:SVT (supraventricula r tachycardia) ([facility] HHS/HCC) Take 1 tablet (25 mg total) by mouth 2 (two) times daily. 30 tablet 4 05/29/2023 4 metoprolol succinate ER (TOPROL-XL) 50 MG 24 hr tabletIndication s:SVT (supraventricula r tachycardia) ([facility] HHS/HCC) Take 0.5 tablets (25 mg total) [...] 02/12/2025 11:30 AM CDT Office Visit [facility] [address] [place] [phone] Jun Oscar, ELEMENTARY SCHOOL BAND DIRECTOR [address] [place] [address] documented as of this encounter Procedures Procedure Name Priority Date/Time Associated Diagnosis Comments USV PSEUDO ANEURYSM LOW RT STAT 05/29/2023 8:44 AM SEWING TEACHER Pseudoaneurysm documented in this encounter Results * USV PSEUDO ANEURYSM LOW RT (05/29/2023 8:44 AM SEWING TEACHER) Anatomical Region Laterality Modality Extremity Ultrasound 05/28/2023 2:03 PM SEWING TEACHER Narrative 05/28/2023 5:15 PM SEWING TEACHER ?Vascular Report Pat.Name: ??CELE CRAIG ? Pat.ID: ?[id number] ? St.Date: ?? 05/28/2023 ?Refer.MD: ??LEE JOSHI ? Exam Time: 2:03:00 PM ? Study Type:PVI ART DUPLEX SCAN-RIGHT LEG ??Age: ??1945,77Y ? Sex: ? F ? Sonogrphr: Pia Urena, RVT ? Pat. Stat.:Outpatient ? CPT - 4: ?59657 Arterial Duplex LE Reason for Study:Pseudoaneurysm ? Race: ?W ? ++++++++++++++++++++++++++++++++++++ FINDINGS: ++++++++++++++++++++++++++++++++++++ Right: ?Hematoma noted at the groin measuring 1.9 x 1.6 cm. No ?pseudoaneurysm is noted. No AV fistula is noted. The ?external iliac, common femoral, profunda femoris, and ?proximal femoral veins and arteries are patent. Possible ?extrinsic compression of the common femoral vein from the ?residual heamtoma. ++++++++++++++++++++++++++++++++++++ MEASUREMENTS: ++++++++++++++++++++++++++++++++++++ ?DOPPLER Right SUPERINTENDENT STEVEDORING ?? SUPERINTENDENT STEVEDORING PSV ?122 cm/s ? Right Prox Profunda ?? Prox Profunda P ?61 cm/s ? Right Prox SFA ?? Prox SFA PSV ?84 cm/s ? Right Dist EIA ?? Dist EIA PSV ? 107 cm/s ? <Electronic Signature> 05/28/2023 05:15 PM Lee Joshi M.D. Procedure Note Lee Joshi MD - 05/28/2023 Vascular Report Pat.Name: CELE CRAIG Pat.ID: [id number] .Date: 05/28/2023 Refer.MD: LEE JOSHI Exam Time: 2:03:00 PM Study Type:PVI ART DUPLEX SCAN-RIGHT LEG Age: 8 1945,77Y Sex: F Sonogrphr: Pia Urena RVT Pat. Stat.:Outpatient CPT - 4: 42884 Arterial Duplex LE Reason for Study:Pseudoaneurysm Race: W ++++++++++++++++++++++++++++++++++++ FINDINGS: ++++++++++++++++++++++++++++++++++++ Right: Hematoma noted at the groin measuring 1.9 x 1.6 cm. No pseudoaneurysm is noted. No AV fistula is noted. The external iliac, common femoral, profunda femoris, and proximal femoral veins and arteries are patent. Possible extrinsic compression of the common femoral vein from the residual heamtoma. ++++++++++++++++++++++++++++++++++++ MEASUREMENTS: ++++++++++++++++++++++++++++++++++++ DOPPLER Right SUPERINTENDENT STEVEDORING SUPERINTENDENT STEVEDORING PSV 122 cm/s Right Prox Profunda Prox Profunda P 61 cm/s Right Prox SFA Prox SFA PSV 84 cm/s Right Dist EIA Dist EIA PSV 107 cm/s <Electronic Signature> 05/28/2023 05:15 PM Lee Joshi M.D. Lee Joshi MD VASC Final Result documented in this encounter Visit Diagnoses Diagnosis Pseudoaneurysm (CMS/HCC) Aneurysm of unspecified site documented in this encounter Care Teams Investigative Research Specialist Relationship Specialty Start Date End Date Davin Estrada MD [address] [place] [address] [address] [place] [address] PCP - General FAMILY PRACTICE 04/12/23 Lee Joshi MD [address] [place] [address] Consulting Physician INTERNAL MEDICINE 05/28/23 documented as of this encounter
--- OUTSIDE RECORDS SUMMARY | 2024-04-27 15:46 | XMS_ITS | Encounter Summary ---
Author Organization [facility] Address [address] [place] [address]. [place] [address] [place] [address] Care Team Providers Care Barrel Rifler Button Name Role Phone Davin Estrada MD Primary Care Provider [phone] Lee Villaseñor MD Unavailable Reason for Visit * Auth/Cert (Routine) Specialty Diagnoses / Procedures Referred By Contac t Referred To Contact Diagnoses CAD Procedures CORONARY ARTERY BYPASS, SANDY Ahmet Levi MD [address] [place] [address] Phone: tel: fax: Referral ID Status Reason Start Date Expiration Date Visits Re quested Visits Authorized [id number] 1 1 Encounter Details Date Type Department Care Team (Late st Contact Info) Description 06/05/2023 7:00 AM COMMISSION AGENT LIVESTOCK Anesthesia Event [facility] [address] [place] [address] Kenia Streeter MD,PHD [address] [place] [address] Shey Mcnair RN Anesthesia Record Procedure Summary Procedure Name Responsible Anesthesiologist Anesthesia Start Time Anesthesia Stop Time CORONARY ARTERY BYPASS, SANDY Kenia Streeter MD,PHD 06/05/23 0700 06/05/23 1323 Events Date Time Event Comment 06/05/2023 0700 0700 An Start Patient ID and consent checked and patient reassessed. 0700 An Start Data 0700 AN Anesthesia Prepped 0703 Preoxygenation 0712 Quick Note I stat results ACT 105 Glucose 80 Ph 7.44 PCO2 34 PO2 275 BE -1 HCO3 23 Na 137 K 3.9 Ca 1.22 Hct 33 0713 Quick Note Bg 80 0716 An Induction The patient was reevaluated immediately before moderate or deep sedation use and before anesthesia induction. 0720 An Intubation 0731 An Line Placement 0801 AN SANDY Pre-bypass Sinu s rhythm LV size normal, systolic function moderately depressed, estimated EF 35%, global hypokinesis, especially in the basal inferior /septal / lateral donovan RV size and systolic function grossly normal Mild central MR Trace TR Trileaflet AV, no significant , moderate AI No thrombus in SHERRIE No PFO Post-bypass Paced rhythm Hyperdynamic heart, LV systolic function appears to have improved, estimated EF now 50-55% Otherwise unchanged from previous No pericardial effusion after chest closure 2D, color flow, CWD and PWD used in exam 0807 Anesthesia Ready 1011 Quick Note Sternotomy 1030 Quick Note Glu - 91 1037 Quick Note ACT - 598 1054 An Aortic Cannula 1056 An CV Bypass init 1101 An Clamp On 1110 Quick Note Glu - 111 1129 Quick Note Blood glucose 1 06 1144 AN Active Warm 1149 Quick Note Blood glucose 1 32 1156 An Defib 1157 An Defib 1158 An Clamp Off 1208 An CV Bypass Ended 1236 Quick Note Glu - 128 ACT - 113 1312 an stop data Pt to CVICU, [employer] on and functioning. VSS. Ambu to ETT @ [facility]. 1323 Post Anesthetic Care Handoff I completed my handoff to the receiving nurse during which we: 1. Identified the patient 2. Identified the responsible provider 3. Reviewed the pertinent medical history 4. Discussed the surgical course 5. Reviewed intra-op anesthesia management and issues during anesthesia 6. Set expectations for post-procedure period 7. Allowed opportunity for questions and acknowledgement of understanding. 1323 An Stop Meds Name Total midazolam (VERSED) 5 mg/5 mL injection ( (5 mL Vial)) 10 mg lidocaine (PF) (XYLOCAINE) 1% injection 100 mg fentaNYL (SUBLIMAZE) 250 mcg/5 mL inject ion 700 mcg propofol (DIPRIVAN) 200 mg/20 mL injecti on 160 mg rocuronium (ZEMURON) 50 mg/5 mL injectio n 100 mg cisatracurium (NIMBEX) injection 40 mg aminocaproic acid (AMICAR) 5 g/20 mL inj ection 5 g aminocaproic acid (AMICAR) 5 g in sodium chloride 0.9 % 250 mL infusion 0.97 g heparin 5,000 units/mL injection 25,000 Units famotidine (PEPCID) 10 mg/mL injection 2 0 mg diphenhydrAMINE (BENADRYL) 50 mg/mL inje ction 50 mg phenylephrine (ANASTASIA-SYNEPHRINE) 1 mg/10 m L IV syringe 900 mcg clevidipine (CLEVIPREX) 25 mg/50 mL infu fidelia 0.55 mg protamine 10 mg/mL injection 250 mg norepinephrine 8mg in 250mL NS infusion (DOUBLE STRENGTH) 31 mcg ceFAZolin (ANCEF) 2 g in sodium chloride 0.9 % 50 mL IVPB 4 g dexmedetomidine (PRECEDEX) 400 mcg in NS 100 mL IV infusion 17.44 mcg acetaminophen 10 mg/mL IV solution 1,000 mg lactated ringers infusion 300 mL lactated ringers infusion 500 mL sodium chloride 0.9% infusion 700 mL sodium chloride 0.9% infusion 206.67 mL * Agents Name O2 Air Inspired Sevoflurane Inspired Isoflurane Sevoflurane Isoflurane * Blood No blood administrations on file. Lines, Drains, and Airways Type Details Placement Removal Chest Tube Placement Date: 06/05/23; Placement Time: 1158; Inserted By: Dr. Ahmet Levi; Tube Number: 1; Orientation: Anterior; Location: Mediastinal; Size: 24 Fr.; Drainage System: Suction 06/05/23 1158 by Sara Turcios RN Peripheral IV Placement Date: 06/05/23; Placement Time: 0544; Orientation: Right; Location: Wrist; Site Prep: Chlorhexidine; Local Anesthetic: None; Inserted By: Rasheeda Kerns RN; Insertion attempts: 1; Ultrasound-guided Placement?: No; Patient Tolerance: Tolerated well; Removal Date: 06/10/23; Removal Time: 1201 06/05/23 0544 by Kavitha Prather RN 06/10/23 1201 by Eagle Lai RN Arterial Line Placement Date: 06/05/23; Placement Time: 0711 (created via procedure documentation); Size: 20; Orientation: Left; Location: Radial; Site Prep: Chlorhexidine; Local Anesthetic: Injectable; Insertion Attempts: 1; Patient Tolerance: Tolerated well; Removal Date: 06/07/23; Removal Time: 95406/05/23 07 by Braydon Yeung, DANIELE 06/07/23 09 by Ahmet Berumen RN Peripheral IV Placement Date: 06/05/23; Placement Time: 718; Placed Outside of This Facility?: No; Size: 18 G; Orientation: Left; Location: Hand; Site Prep: Chlorhexidine; Local Anesthetic: None; Inserted By: MORRIS DUFFY; Insertion attempts: 1; Ultrasound-guided Placement?: No; Patient Tolerance: Tolerated well (under general anesthesia); Removal Date: 06/10/23; Removal Time: 2115; Removal Reason: Infiltrated 06/05/23718 by Braydon Yeung, POLICE DISTRICT SWITCHBOARD OPERATOR 06/10/232115 by Braydon Ngo RN ETT Placement Date: 06/05/23; Placement Time: 719; Placed Outside of This Facility?:No; Mask Ventilate: Prior to intubation, Easy; Size (mm) : 7.5; Endotracheal: Oral, Stylet used; Blade Type: MAC 3; Placement Method: Direct Laryngoscopy (blade type in comment); View Grade: 1; Viewable Anatomy: Epiglottis, Arytenoid, Vocal cords; Insertion Attempts: 1; Placement Verified By: Capnography, Auscultation, Chest Rise; Placed By: SHAY; Removal Date: 06/05/23; Removal Time: 1800 06/05/23719 by Braydon Yeung, POLICE DISTRICT SWITCHBOARD OPERATOR 06/05/23 1800 by Pavithra Bermudez, JOSÉ MIGUEL House Catheter 06/05/23; 0725; No; I & O - Strict I&O or Critically ill requiring I&O Q1-2hrs; 1; Hand hygiene performed, Site cleansed with sterile antiseptic, Sterile gloves, drape and lubricant used, Catheter inserted using aseptic technique, House care post catheter insertion, Drainage bag secured below level of bladder, Closed system maintained; Tape, Stat lock; Non-latex, Temperature probe; 16 Fr.; Per Order 06/05/23 0725 by Madhuri Crawley RN 06/07/23 0550 by Love Cummings, SARAH CVC Double Lumen Placement Date: 06/05/23; Placement Time: 07 (created via procedure documentation); CVC Type: Introducer; Technique Used: Maximum Sterile Technique used, Real time Ultrasound guidance, Blood return present, Guidewires used accounted for; Local Anesthetic: None; Size: 9 Hungarian; Orientation: Right; Location: Internal Jugular; Insertion Attempts: 1; Placement Verification: Blood Return; Securement Method: Sutured, Skin barrier, Statlock; Patient Tolerance: Tolerated well; Diagnosis R/T CVC Insertion: Surgery; CVC Therapy Type: Blood Products, IV Fluids, Vasopressors; Removal Date: 06/10/23; Removal Time: 1201 06/05/23 0731 by Braydon Yeung, POLICE DISTRICT SWITCHBOARD OPERATOR 06/10/23 1201 by Eagle Lai, SARAH CVC Triple Lumen Placement Date: 06/05/23; Placement Time: 07; CVC Type: Arrow; Baseline External Catheter Length: 23 cm; Baseline Total Catheter Length (cm): 30; Placed Outside of This Facility?: No; Technique Used: Maximum Sterile Technique used, Hand hygiene, Real time Ultrasound guidance, Blood return present, Guidewires used accounted for; Local Anesthetic: None; Size: 7 Hungarian; Orientation: Right; Location: Internal Jugular; Insertion Attempts: 1; Placement Verification: Blood Return, Other (comment) (Ultrasound); Inserted By: SHAY Connell; Securement Method: Skin barrier, Statlock; Patient Tolerance: Tolerated well; Diagnosis R/T CVC Insertion: Surgery; CVC Therapy Type: Blood Products, IV Fluids, Vasopressors; Removal Date: 06/06/23; Removal Time: 1300 06/05/23 0747 by Braydon Yeung, POLICE DISTRICT SWITCHBOARD OPERATOR 06/06/23 1300 by Ahmet Berumen RN Surgical/Incision 06/05/23; 0859; Surg ical Wound; Leg; Left; ADHESIVE DERMABOND (x1); Macho wrapped from lower leg to upper thigh.; 06/11/23; 190906/05/23 0859 by Sara Turcios RN 06/11/23 191 by Automatic Discharge Provider Surgical/Incision 06/05/23; 0859; Surg ical Wound; Chest; ADHESIVE DERMABOND PRINEO SKIN CLOSURE STRIP 22cm, DRESSING 4 X 4 2 PACK (x2); Hypafix. Chest tubes securely banded prior to leaving OR.; 06/11/23; 190906/05/23 0859 by Sara Turcios RN 06/11/231909 by Automatic Discharge Provider Surgical/Incision 06/05/23; 1035; Surg ical Wound; Leg; Right; ADHESIVE DERMABOND (x1), BANDAGE MACHO STERILE 4 X 5YD (x1), BANDAGE MACHO STERILE 6 X 5YD (x1); Macho wrapped from lower leg to upper thigh; 06/11/23; 190906/05/23 1035 by Sara Turcios RN 06/11/231909 by Automatic Discharge Provider Y Chest Tube 1 and 2 06/05/23; 1158; 1; Anterior; Pleural; 24 Fr.; 2; Anterior; Pleural; 24 Fr. 06/05/23 1158 by Sara Turcios RN 06/07/23 0925 by Ahmet Berumen RN documented in this encounter Social History Tobacco Use Types Packs/Day Years Used Date Smoking Tobacco: Never Passive Smoke Exposure: Never Smokeless Tobacco: Never Alcohol Use Standard Drinks/Week Comments Not Currently 0 (1 standard drink = 0.6 oz pur e alcohol) occasional wine [facility] Utilities Answer Date Recorded In the past 12 months has e [employer], gas, oil, or water [employer] threatened to shut off services in your [...] and heating? Not hard at all 06/06/2023 [facility] [place] [facility] [employer] - Occupational Stress [...] on file Legal Sex Female 3:10 PM COMMISSION AGENT LIVESTOCK Gender Identity Not on file Sexual Orientation [...] Hamilton RN Active documented in this encounter OR Notes * Anesthesia Postprocedure Evaluation - Kenia Streeter MD,PHD - 06/05/2023 3:02 PM CST Anesthesia Post-op Note Cele Salcido Procedure(s): CORONARY ARTERY BYPASS, SANDY Anesthesia type: cardiac POST OP VITALS BP 117/50 HR 80 paced Sat 100% vent Vitals: 06/05/23527 BP: (!) 144/64 Vitals: 06/05/23527 Pulse: 70 Vitals: 06/05/23527 Resp: 18 Vitals: 06/05/23527 Temp: 36.4 ??C Vitals: 06/05/23527 SpO2: 97% Patient Location: ICU Level of Consciousness: sedated Pain Management: adequate analgesia Airway Patency: patent Respiratory Status: intubated Cardiovascular Status: hemodynamically stable and acceptable Post-Op Nausea: none Postoperative Hydration: euvolemic Comments: Pt delivered to ICU intubated and sedated, hand off given to ICU staff. There were no known notable events for this encounter. ISSION AGENT LIVESTOCK * Anesthesia Procedure Notes - Braydon Yeung CRNA - 06/05/2023 8:38 AM CSTAssociated Order(s): Central Line Central Line Placement: Date/Time: 06/05/2023 7:31 AM Patient Location: OR Number of Lumens: Double lumen CVC Type: Introducer Technique Used: Maximum sterile technique used, Chlorhexadine skin prep, real time Ultrasound guidance, blood return present and guidewires used accounted for Preparation: skin prepped with ChloraPrep Hand hygiene: hand hygiene performed prior to central venous catheter insertion Local Anesthetic: None Size: 9 Hungarian Orientation: Right Location: Internal jugular Insertion Attempts: 1 Placement Verification: Blood return Securement Method: Sutured, skin barrier and statlock Patient Tolerance: Tolerated well Diagnosis R/T CVC Insertion: Surgery CVC Therapy Type: IV fluids, vasopressors and blood products Additional Notes: The medial and lateral heads of the sternocleidomastoid muscle were identified, as was the carotid pulse. The internal jugular vein and carotid artery were identified using ultrasound. With realtime, out of plane guidance, a 20 gauge introducer needle with 18 gauge over the needlecatheter was inserted into the internal jugular vein. Venous blood was withdrawn. The catheter was t hreaded into the internal jugular vein as the needle and syringe were removed. A guidewire was advanced into the catheter and the right internal jugular vein. The guidewire was visualized in the internal jugular vein by in plane and out of plane ultrasound, and a permanent image was captured and placed in the patient chart. ISSION AGENT LIVESTOCK ISSION AGENT LIVESTOCK ISSION AGENT LIVESTOCK * Anesthesia Procedure Notes - Braydon Yeung CRNA - 06/05/2023 7:11 AM CSTAssociated Order(s): Art Line Art Line Date/Time: 06/05/2023 7:11 AM Performed by: Braydon Yeung CRNA Authorized by: Kenia Streeter MD,PHD Patient Location: OR Size: 20 Orientation: Left Location: Radial Site Prep: Chlorhexadine Local Anesthetic: Injectable Insertion Attempts: 1 Ultrasound-guided Placement: No Secure Method: Sutured Patient Tolerance: Tolerated well ISSION AGENT LIVESTOCK * Anesthesia Preprocedure Evaluation - Kenia Streeter MD,PHD - 06/04/2023 8:56 AM CST Anesthesia ROS/MED History Reviewed: Patient summary , Nursing notes , ECG, Family history anesthesia, Anesthesia history , Medications , Labs , Images/Studies Pre-Anesthetic State: alert, awake and responds appropriately no history of anesthetic complications Pulmonary neg pulmonary ROS Cardiovascular Exercise tolerance:good (Able to climb 1 flight of stairs) (+) hypertension, Valvular problems/Murmurs, (AI), CAD, CHF (EF 35%), arrhythmia, (SVT), (Paroxysmal), hyperlipidemia ROS comment: Cardiomyopathy ECHO: The left ventricular size is normal. Mild [...] pressure. Mild to moderate central aortic regurgitation. Belinda Mckenzie MD 04/13/23 EKG: SINUS RHYTHM 68 bpm POSSIBLE LEFT ATRIAL ENLARGEMENT [-0.1mV P-WAVE IN V1/V2] LEFT VENTRICULAR HYPERTROPHY AND ST-T CHANGE [VOLTAGE CRITERIA PLUS ST/T ABNORMALITY] Compared to ECG 04/12/2023 21:33:07 No significant changes Neuro/Psych neg neuro/psych ROS Substance Use no history of substance abuse GI/Hepatic/Renal neg GI/hepatic/renal ROS Endo/Other (+) cancer (ovarian CA), (chemotherapy), (surgical resection) Comments: Right groin pseudoaneurysm GENERAL COMMENTS H&P 06/04/23 77F here for CABG NPO Status: Last Fluid Intake Date: 06/04/23 Last Fluid Intake Time: 2358 Last Solid Intake Date: 06/04/23 Last Solid Intake Time: 1699 Physical Evaluation Airway Mallampati: II TM Distance: >3 FB Neck ROM: normal Dental No notable dental history Pulmonary Pulmonary exam normal Breath sounds clear to auscultation (-) wheezing Cardiovascular Rhythm: regular Rate: normal (+) murmur, (RSB) STOP-Bang Assessment: Do you snore loudly?: 0 Do you often feel tired or fatigued after your sleep?: 0 Has anyone ever observed you stop breathing in your sleep?: 0 Do you have or are you being treated for high blood pressure?: 1 Recent BMI (Calculated): 24.1 Is BMI greater than 35 kg/m2?: 0=No Age older than 50 years old?: 1=Yes Is your neck circumference greater than 17 inches (Male) or 16 inches (Female)?: 0 Gender - Male: 0=No STOP-Bang Total Score: 2 Anesthesia Plan ASA 3 Intravenous Induction Anesthesia type: cardiac Plan for Airway: ETT and mask management Plan for Vascular: arterial line, central line, PA catheter and second IV Plan for Monitors: BIS, cerebral oximetry, arterial blood pressure, CVP and ECHO ECHO includes: SANDY Plan for Post-op Pain Plan: oral pain medication, IV analgesics and as per surgeon GA, ETT, A-line, PIVx2, CVC +/- PAC, +/- SANDY Post op intubation and ICU care Vitals 06/05/23 0528 BP: (!) 144/64 Pulse: 70 Resp: 18 Temp: 36.4 ??C SpO2: 97% Recent Labs 06/04/23 1337 NA 133* K 4.0 CL 102 CO2 28.1 BUN 16 CR 0.88 GLU 86 HGBA1C 5.3 WBC 4.00 HGB 11.5* HCT 35.1* PLT 227 PROTIME 11.5 INR 1.0 PTT 27.2 Informed Consent Anesthetic plan and risks discussed with patient of whom consent was obtained. Use of blood products discussed with patient of whom consent was obtained. . ISSION AGENT LIVESTOCK ISSION AGENT LIVESTOCK ISSION AGENT LIVESTOCK documented in this encounter Plan of Treatment Upcoming Encounters Date Type Department Care Team (Late st Contact Info) Description 02/12/2025 11:30 AM CDT Office Visit [facility] [address] [place] [id number] Jun Oscar, OBSERVER HELPER [address] [place] [address] documented as of this encounter Procedures Procedure Name Priority Date/Time Associated Diagnosis Comments NH AN CENTRAL LINE DOUBLE LUMEN Routine 06/05/2023 7:31 AM COMMISSION AGENT LIVESTOCK ART LINE PLACEMENT Routine 06/05/2023 7: 11 AM COMMISSION AGENT LIVESTOCK documented in this encounter Results * NH AN CENTRAL LINE DOUBLE LUMEN (06/05/2023 7:31 AM COMMISSION AGENT LIVESTOCK) Braydon Light CRNA - 06/05/2023 7:31 AM COMMISSION AGENT LIVESTOCK Braydon Yeung CRNA ? 06/05/2023 ??9:33 AM Central Line Placement: Date/Time: ??06/05/2023 7:31 AM Patient Location: ??OR Number of Lumens: ??Double lumen CVC Type: ??Introducer Technique Used: ??Maximum sterile technique used, Chlorhexadine skin prep, real time Ultrasound guidance, blood return present and guidewires used accounted for Preparation: skin prepped with ChloraPrep Hand hygiene: hand hygiene performed prior to central venous catheter insertion Local Anesthetic: ??None Size: ??9 Hungarian Orientation: ??Right Location: ??Internal jugular Insertion Attempts: ??1 Placement Verification: ??Blood return Securement Method: ??Sutured, skin barrier and statlock Patient Tolerance: ??Tolerated well Diagnosis R/T CVC Insertion: ??Surgery CVC Therapy Type: ??IV fluids, vasopressors and blood products Additional Notes: ??The medial and lateral heads of the sternocleidomastoid muscle were identified, as was the carotid pulse. The internal jugular vein and carotid artery were identified using ultrasound. With realtime, out of plane guidance, a ??20 gauge introducer needle with 18 gauge over the needle catheter was inserted into the internal jugular vein. Venous blood was withdrawn. The catheter was threaded into the internal jugular vein as the needle and syringe were removed. A guidewire was advanced into the catheter and the right internal jugular vein. The guidewire was visualized in the internal jugular vein by in plane and out of plane ultrasound, and a permanent image was captured and placed in the patient chart. us Kenia Streeter MD,PHD [place] ANESTHESIA Edited Result - Final * ART LINE PLACEMENT (06/05/2023 7:11 AM COMMISSION AGENT LIVESTOCK) Braydon Light CRNA - 06/05/2023 7:11 AM COMMISSION AGENT LIVESTOCK Braydon Yeung CRNA ? 06/05/2023 ??7:11 AM Art Line Date/Time: 06/05/2023 7:11 AM Performed by: Braydno Yeung CRNA Authorized by: Kenia Streeter MD,PHD ?? Patient Location: ??OR Size: ??20 Orientation: ??Left Location: ??Radial Site Prep: ??Chlorhexadine Local Anesthetic: ??Injectable Insertion Attempts: ??1 Ultrasound-guided Placement: ??No Secure Method: ??Sutured Patient Tolerance: ??Tolerated well us Kenia Streeter MD,PHD [place] ANESTHESIA Final Result documented in this encounter Visit Diagnoses Not on filedocumented in this encounter Administered Medications Inactive Administered Medications - up to 3 most recent administrations Medication Order MAR Action Action Date Dose Rate Site acetaminophen (OFIRMEV) infusion Intravenous, Administer over 15 Minutes, PRN, Starting on Sun06/05/23 at 1252, Until Sun06/05/23 at 1330, Anesthesia Intra-Op Given 06/05/2023 12:52 PM COMMISSION AGENT LIVESTOCK 1,000 mg aminocaproic acid (AMICAR) 5 g in sodium chloride 0.9 % 250 mL infusion Intravenous, Continuous PRN, Starting on Sun06/05/23 at 1225, Until Sun06/05/23 at 1330, Anesthesia Intra-Op New Bag 06/05/2023 12:25 PM COMMISSION AGENT LIVESTOCK 1 g/hr 50 m L/hr aminocaproic acid (AMICAR) injection Intravenous, PRN, Starting on Sun06/05/23 at 0818, Until Sun06/05/23 at 1330, Anesthesia Intra-Op Given 06/05/2023 8:12 AM COMMISSION AGENT LIVESTOCK 5 g ceFAZolin (ANCEF) 2 g in sodium chloride 0.9 % 50 mL IVPB 2 g, Intravenous, at 100 mL/hr, Once, 1 dose, On Sun06/05/23 at 0600 Bolus 06/05/2023 12:18 PM COMMISSION AGENT LIVESTOCK 2 g New Bag 06/05/2023 8:03 AM COMMISSION AGENT LIVESTOCK 2 g cisatracurium (NIMBEX) injection Intravenous, PRN, Starting on Sun06/05/23 at 0850, Until Sun06/05/23 at 1330, Anesthesia Intra-Op Given 06/05/2023 12:34 PM COMMISSION AGENT LIVESTOCK 10 mg Given 06/05/2023 11:45 AM COMMISSION AGENT LIVESTOCK 10 mg Given 06/05/2023 10:08 AM COMMISSION AGENT LIVESTOCK 10 mg clevidipine (CLEVIPREX) 25 MG/50ML infusion Intravenous, PRN, Starting on Sun06/05/23 at 1046, Until Sun06/05/23 at 1330, Anesthesia Intra-Op Given 06/05/2023 12:12 PM COMMISSION AGENT LIVESTOCK 0.4 mg Given 06/05/2023 10:46 AM COMMISSION AGENT LIVESTOCK 0.15 mg dexmedetomidine (PRECEDEX) 400 mcg in NS 100 mL IV infusion Intravenous, Continuous PRN, Starting on Sun06/05/23 at 1226, Until Sun06/05/23 at 1330, Anesthesia Intra-Op New Bag 06/05/2023 12:26 PM COMMISSION AGENT LIVESTOCK 0.3 mcg/kg/hr 4.59 mL/hr diphenhydrAMINE (BENADRYL) injection Intravenous, PRN, Starting on Sun06/05/23 at 0800, Until Sun06/05/23 at 1330, Anesthesia Intra-Op Given 06/05/2023 8:00 AM COMMISSION AGENT LIVESTOCK 50 mg famotidine (PF) (PEPCID) injection Intravenous, PRN, Starting on Sun06/05/23 at 0800, Until Sun06/05/23 at 1330, Anesthesia Intra-Op Given 06/05/2023 8:00 AM COMMISSION AGENT LIVESTOCK 20 mg fentaNYL (SUBLIMAZE) injection Intravenous, PRN, Starting on Sun06/05/23 at 0715, Until Sun06/05/23 at 1330, Anesthesia Intra-Op Given 06/05/2023 1:12 PM COMMISSION AGENT LIVESTOCK 50 mcg Given 06/05/2023 10:44 AM COMMISSION AGENT LIVESTOCK 50 mcg Given 06/05/2023 9:31 AM COMMISSION AGENT LIVESTOCK 100 mcg heparin (porcine) injection Intravenous, PRN, Starting on Sun06/05/23 at 1022, Until Sun06/05/23 at 1330, Anesthesia Intra-Op Given 06/05/2023 10:22 AM COMMISSION AGENT LIVESTOCK 25,000 Units lactated ringers infusion Intravenous, Continuous PRN, Starting on Sun06/05/23 at 0719, Until Sun06/05/23 at 1330, Anesthesia Intra-Op New Bag 06/05/2023 7:19 AM COMMISSION AGENT LIVESTOCK lactated ringers infusion Intravenous, Continuous PRN, Starting on Sun06/05/23 at 0807, Until Sun06/05/23 at 1330, Anesthesia Intra-Op New Bag 06/05/2023 8:07 AM COMMISSION AGENT LIVESTOCK lidocaine (PF) (XYLOCAINE) 1 % injection Intravenous, PRN, Starting on Sun06/05/23 at 0716, Until Sun06/05/23 at 1330, Anesthesia Intra-Op Given 06/05/2023 7:16 AM COMMISSION AGENT LIVESTOCK 100 mg midazolam (VERSED) injection Intravenous, PRN, Starting on Sun06/05/23 at 0715, Until Sun06/05/23 at 1330, Anesthesia Intra-Op Given 06/05/2023 1:11 PM COMMISSION AGENT LIVESTOCK 1 mg Given 06/05/2023 11:45 AM COMMISSION AGENT LIVESTOCK 2 mg Given 06/05/2023 11:04 AM COMMISSION AGENT LIVESTOCK 2 mg norepinephrine (LEVOPHED) 8 mg/250mL NS infusion Intravenous, Continuous PRN, Starting on Sun06/05/23 at 1200, Until Sun06/05/23 at 1330, Anesthesia Intra-Op Given 06/05/2023 12:48 PM COMMISSION AGENT LIVESTOCK 8 mcg Restarted 06/05/2023 12:28 PM COMMISSION AGENT LIVESTOCK 1 mcg/min 1.875 mL/hr Rate/Dose Change 06/05/2023 12:09 PM COMMISSION AGENT LIVESTOCK 3 mcg/min 5.625 mL/hr phenylephrine (ANASTASIA-SYNEPHRINE) injection Intravenous, PRN, Starting on Sun06/05/23 at 0729, Until Sun06/05/23 at 1330, Anesthesia Intra-Op Given 06/05/2023 12:00 PM COMMISSION AGENT LIVESTOCK 50 mcg Given 06/05/2023 11:56 AM COMMISSION AGENT LIVESTOCK 100 mcg Given 06/05/2023 11:54 AM COMMISSION AGENT LIVESTOCK 50 mcg propofol (DIPRIVAN) IV bolus Intravenous, PRN, Starting on e 06/05/23 at 0716, Until 06/05/23 at 1330, Anesthesia Intra-Op Given 06/05/2023 12:09 PM COMMISSION AGENT LIVESTOCK 30 mg Given 06/05/2023 10:10 AM COMMISSION AGENT LIVESTOCK 30 mg Given 06/05/2023 10:09 AM COMMISSION AGENT LIVESTOCK 20 mg protamine injection Intravenous, PRN, Starting on Sun06/05/23 at 1209, Until Sun06/05/23 at 1330, Anesthesia Intra-Op Given 06/05/2023 12:15 PM COMMISSION AGENT LIVESTOCK 200 mg Given 06/05/2023 12:09 PM COMMISSION AGENT LIVESTOCK 50 mg rocuronium (ZEMURON) injection Intravenous, PRN, Starting on Sun06/05/23 at 0717, Until Sun06/05/23 at 1330, Anesthesia Intra-Op Given 06/05/2023 8:00 AM COMMISSION AGENT LIVESTOCK 50 mg Given 06/05/2023 7:17 AM COMMISSION AGENT LIVESTOCK 50 mg sodium chloride 0.9% infusion Intravenous, Continuous PRN, Starting on Sun06/05/23 at 0704, Until Sun06/05/23 at 1330, Anesthesia Intra-Op New Bag 06/05/2023 7:04 AM COMMISSION AGENT [employer]IVESTOCK sodium chloride 0.9% infusion Intravenous, Continuous PRN, Starting on Sun06/05/23 at 0817, Until Sun06/05/23 at 1330, Anesthesia Intra-Op New Bag 06/05/2023 8:17 AM COMMISSION AGENT LIVESTOCK 50 mL /hr documented in this encounter Care Teams Barrel Rifler Button Relationship Specialty Start Date End Date Davin Estrada MD [address] [place] [address] [address] [place], [place] [id number] PCP - General FAMILY PRACTICE 04/12/23 Lee Villaseñor MD [address] [place] [id number] Consulting Physician INTERNAL MEDICINE 05/28/23 documented as of this encounter
--- OUTSIDE RECORDS SUMMARY | 2024-04-27 15:46 | XMS_ITS | Encounter Summary ---
Author Organization [facility] Address [facility] [place] [address] [place] [address] Care Team Providers Care Infection Control Rn Name Role Phone Davin Estrada MD Primary Care Provider [phone] Lee Villaseñor MD Unavailable Reason for Visit * Reason Onset Date Comments Information 05/28/2023 Encounter Details Date Type Department Care Team (Late st Contact Info) Description [facility]/28[facility]2023 [facility] [address] [place] [address] Lee Villaseñor MD [address] [place] [address] Information Social History Tobacco Use Types Packs/Day Years Used Date Smoking Tobacco: Never Passive Smoke Exposure: Never Smokeless Tobacco: Never Alcohol Use Standard Drinks/Week Comments Not Currently 0 (1 standard drink = 0.6 oz pur e alcohol) occasional wine [facility] Utilities Answer Date Recorded In the past 12 months has e electric, gas, oil, or water [employer] threatened to shut off services in your [...] and heating? Not hard at all 04/27/2023 [facility] - Occupational Stress [...] place to sleep or slept in a longterm (including now)? No 04/27/2023 Comments Unknown Sex and Gender Information Value Date Recorded Sex Assigned at Not on file Legal Sex Female 3:10 PM [employer]ILI P[employer]DER MIX[employer] Gender Identity Not on file Sexual [...] Hamilton RN Active documented in this encounter Progress Notes * Soledad Valdez - 05/28/2023 4:24 PM CST Calling about pt dx code for vascular testing being done now. Transferred call to nurse for correctdiagnosis code. I POWDER MIXER documented in this encounter Plan of Treatment Upcoming Encounters Date Type Department Care Team (Late st Contact Info) Description 02/12/2025 11:30 AM CDT Office Visit [facility] [address] [place] [address] Jun Oscar, PIGMENT PUMPER [address] [place] [address] documented as of this encounter Visit Diagnoses Not on filedocumented in this encounter Care Teams Infection Control Rn Relationship Specialty Start Date End Date Davin Estrada MD [address] [place] [address] [address] [place] [address] PCP - General FAMILY PRACTICE 04/12/23 Lee Villaseñor MD [address] [place] [address] Consulting Physician INTERNAL MEDICINE 05/28/23 documented as of this encounter
--- OUTSIDE RECORDS SUMMARY | 2024-04-27 15:46 | XMS_ITS | Encounter Summary ---
Author Organization [facility] Address [facility]. 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 Name Role Phone Davin Estrada MD Primary Care Provider [phone] Lee Villaseñor MD Unavailable Reason for Referral * (Routine) - New Request Specialty Diagnoses / Procedures Referred By Contac t Referred To Contact Procedures OT Eval and Treat Margaret Silver FNP [address] [place] [address] Phone: tel: fax: Referral ID Status Reason Start Date Expiration Date V isits Requested Visits Authorized [id number] New Request 06/06/2023 06/06/2024 1 1 NG ANALYST * (Routine) - New Request Specialty Diagnoses / Procedures Referred By Contac t Referred To Contact Procedures PT Eval and Treat Margaret Silver FNP [address] [place] [address] Phone: tel: fax: Referral ID Status Reason Start Date Expiration Date V isits Requested Visits Authorized [id number] New Request 06/06/2023 06/06/2024 1 1 NG ANALYST Reason for Visit * Auth/Cert (Routine) Specialty Diagnoses / Procedures Referred By Eron bullock Referred To Contact Diagnoses CAD Procedures CORONARY ARTERY BYPASS, MARIA ANTONIA Ahmet Levi MD [address] [place] [address] Phone: tel: fax: Referral ID Status Reason Start Date Expiration Date Visits Re quested Visits Authorized [id number] 1 1 Encounter Details Date Type Department Care Team (Latest Contact Info) Description 06/05/2023 5:01 AM CODING ANALYST - 06/11/2023 4:00 PM CODING ANALYST Hospital Encounter [facility] [address] [place] [address] Ahmet Levi MD [address] [place] [address] Discharge Disposition: Home or Self Care (Routine Discharge) Social History Tobacco Use Types Packs/Day Years Used Date Smoking Tobacco: Never Passive Smoke Exposure: Never Smokeless Tobacco: Never Tobacco Cessation:Counseling Given: Not Answered Alcohol Use Standard Drinks/Week Comments Not Currently 0 (1 standard drink = 0.6 oz pur e alcohol) occasional wine [facility] [employer] Answer Date Recorded In the past 12 months has [facility] [employer], gas, oil, or water [employer] threatened to shut off services in your [...] and heating? Not hard at all 06/06/2023 [facility] [place] of Occupat ional Health - Occupational Stress [...] place to sleep or slept in a retirement (including now)? No 06/06/2023 Comments Unknown Sex and Gender Information Value Date Recorded Sex Assigned at Not on file Legal Sex Female 3:10 PM CODING ANALYST Gender Identity Not on file Sexual Orientation Not on file documented as of this encounter Last Filed Vital Signs Vital Sign Reading Time Taken Comments Blood Pressure 126/56 06/11/2023 11:16 AM CODING ANALYST Pulse 71 06/11/2023 11:16 AM CODING ANALYST Temperature 37 ??C (98.6 ??F) 06/11/2023 7:52 AM CODING ANALYST Respiratory Rate 20 06/11/2023 11:1 6 AM CODING ANALYST Oxygen Saturation 94% 06/11/2023 11: 16 AM CODING ANALYST Inhaled Oxygen Concentration - - Weight 61.2 kg (134 lb 14.7 oz) 06/11/2023 6:05 AM CODING ANALYST Height 159.5 cm (5' 2.8 ) 06/05/2023 5:14 AM CODING ANALYST Body Mass Index 24.06 06/05/2023 5:14 AM CODING ANALYST documented in this encounter Functional Status * Question Answer Date of Assessment Author Status Do you have serious difficulty walking or climbing stairs? No 06/06/2023 4:01 AM Love Bailon RN Active * Question Answer Date of Assessment Author Status Do you have difficulty dressing or bathing? No 06/06/2023 4:01 AM Love Bailon RN Active Because of a physical, mental, or emotional condition, do you have difficulty doing errands alone such as visiting a doctor's office or shopping? No 06/06/2023 4:01 AM Love Bailon RN A ctive * Are you deaf or do you [...] as of this encounter Mental Status * Question Answer Entry Date Author Status Because of a physical, mental, or emotional condition, do you have serious difficulty concentrating, remembering, or making decisions? No 06/06/2023 4:01 AM Love Bailon RN Active * Because of a physical, mental, or emotional condition, do you have serious difficulty concentrating, remembering, or making decisions? Answer Entry Date Author Status No 06/06/2023 4:01 AM CODING ANALYST Love Cummings RN Active documented in this encounter Discharge Summaries * JAKOB Rich - 06/11/2023 2:33 PM CST Physician Discharge Summary Patient ID: Kendy Salcido [id number] 77-year-old 1945 Primary Care Physician: DAVIN ESTRADA MD Admit date: 06/05/2023 Discharge Date: 06/11/23 Admitting Physician: Ahmet Levi MD Discharge Physician: Ahmet Levi. Admission Diagnoses: CAD Discharge Diagnoses: CAD s/p CABG Hospital Course: Kendy Salcido is a 77 [address] patient of Dr. House who was referred to Dr. Levi for consideration of coronary artery bypass grafting. She has a past medical history of ovariancancer diagnosed in her 40s without recurrence and hypertension She had a recent admission to the hospital (03/2023) due to palpitations. At the time of admission, she was noted to have paroxysmal supraventricular tachycardia and is set to undergo ablation in June of 2023. Echocardiogram during her hospitalization demonstrated an EF of 30-35% with fwed-ra-kemiupux aortic insufficiency. She was started on guideline directed medical therapy for cardiomyopathy including metoprolol succinate and Entresto. She was unable to advance both medications as she became lightheaded and dizzy and is now only taking Entresto once daily. She underwent left heart catheterization on May 21, 2023 which demonstrated normal left main, lad 80% proximal stenosis, D1 90% stenosis, OM1 70 and 80% stenosis, RCA calcified 70 and 80% mid stenosis. Patient was admitted on 06/05 and underwent CABG x 3 SVG to OM1, RICHTER to LAD, RUSSEL to RCA, #[address] Levi. Saphenous vein segment was harvested from both legs and most of the saphenous vein was of poor quality. The patient tolerated the procedure well and was transferred to the recovery room in stable condition. On POD1, patient was on Cleviprex and metoprolol was resumed. Post-operatively, patient had a fib and NSVT and EP was consulted. Patient was discharged on Eliquis perher request over warfarin. Risks vs. benefits discussed with patient and her . EP recs: continue amiodarone with oral loading 400 twice daily X 2 weeks, and then 200 mg daily after. Further management of oral anticoagulation per cardiothoracic surgery. Continue goal-directed medical therapy for ischemic cardiomyopathy (Toprol, Entresto, spironolactone). Repeat TTE ordered as an outpatient. Will follow-up as outpatient in 4 to 6 weeks for further management of atrial fibrillation and SVT. During post-op course, patient received cardiac rehab and physical therapy as needed. The patient'shospital course is described above. At discharge, the patient was ambulating the halls with minimalassistance, tolerating an oral diet, and had experienced return of gastrointestinal function. Pain was controlled on oral medications, and the patient was tolerating other indicated medications without difficulty. The patient was discharged on medications as listed below. The patient will follow upwith Dr. Levi on 07/08 at 11am. She will follow up with Dr. Estrada her PCP on 06/12. Patient is scheduled to see Dr. House on 07/17/23 at 12:15 pm, and Dr. Jama at 11:00 am on 07/18/23. She is also scheduled for an echo on 07/18/23. Patient Instructions: Current Discharge Medication List START taking these medications Details acetaminophen (TYLENOL) 500 MG tablet Take 1 tablet (500 mg total) by mouth every 6 (six) hours as needed. Qty: 30 tablet, Refills: 0 amiodarone 400 MG Tab Take 200 mg by mouth 2 (two) times daily. Take 2 pills twice daily for 2 weeks. Then take 1 tablet once a day. Qty: 70 tablet, Refills: 0 apixaban (ELIQUIS) 5 MG tablet Take 1 tablet (5 mg total) by mouth 2 (two) times daily. Qty: 60 tablet, Refills: 1 furosemide (LASIX) 40 MG tablet Take 0.5 tablets (20 mg total) by mouth daily. Qty: 7 tablet, Refills: 0 hydrALAZINE (APRESOLINE) 25 MG tablet Take 1 tablet (25 mg total) by mouth every 8 (eight) hours. Qty: 120 tablet, Refills: 0 oxyCODONE-acetaminophen (PERCOCET) 5-325 MG tablet Indications: Acute Pain < 7 Day Supply Dispense twenty eight tablets. Take one tablet as needed every four hours for pain. Do not take more than 4,000mg of acetaminophen every 24 hours. No refills. Qty: 28 tablet, Refills: 0 Associated Diagnoses: S/P CABG x 3 potassium chloride CR (KLOR-CON M) 20 MEQ tablet Take 1 tablet (20 mEq total) by mouth daily for 5 days. Qty: 5 tablet, Refills: 0 spironolactone (ALDACTONE) 25 MG tablet Take 0.5 tablets (12.5 mg total) by mouth daily. Qty: 90 tablet, Refills: 2 CONTINUE these medications which have NOT CHANGED Details Acetaminophen (TYLENOL ARTHRITIS PAIN OR) Take 2 tablets by mouth as needed (nightly for arthritis pain). aspirin EC (ECOTRIN) 81 MG tablet Take 1 tablet (81 mg total) by mouth daily. bisacodyl EC (DULCOLAX) 5 MG Tab EC tablet Take 2 tablets (10 mg total) by mouth daily as needed (.). at bedtime. Calcium Citrate 250 MG Tab Take 2 tablets by mouth daily. melatonin 10 MG tablet Take 1 tablet (10 mg total) by mouth nightly as needed for Sleep. metoprolol succinate ER (TOPROL-XL) 50 MG 24 hr tablet Take 0.5 tablets (25 mg total) by mouth 2 (two) times daily. Qty: 30 tablet, Refills: 3 Associated Diagnoses: SVT (supraventricular tachycardia) vitamin ( PLUS) 27-1 MG tablet Take 1 tablet by mouth daily. rosuvastatin (CRESTOR) 40 MG tablet Take 1 tablet (40 mg total) by mouth nightly at bedtime. Qty: 90 tablet, Refills: 3 sacubitril-valsartan (ENTRESTO) 24-26 MG tablet Take 1 tablet by mouth 2 (two) times daily. Qty: 60 tablet, Refills: 6 vitamin B-12 (CYANOCOBALAMIN) 500 MCG tablet Take 1 tablet (500 mcg total) by mouth daily. vitamin C (ASCORBIC ACID) 500 MG tablet Take 2 tablets (1,000 mg total) by mouth daily. Vitamin D3 (CHOLECALCIFEROL) 50 mcg tablet Take 1 tablet (50 mcg total) by mouth daily. vitamin E 180 MG (400 UNIT) capsule Take 1 capsule (400 Units total) by mouth daily. zolpidem (AMBIEN) 5 MG tablet Take 1 tablet (5 mg total) by mouth nightly as needed for Sleep. Signed: JAKOB Rich 06/11/2023 2:33 PM Cosigned by Ahmet Levi MD at 06/22/2023 5:10 PM CODING ANALYST NG ANALYST NG ANALYST documented in this encounter Discharge Instructions * Attachments The following attachments cannot be sent through Care Everywhere. * Coronary Artery Bypass Grafting Discharge Instructions (Estonian) * Sternal Precautions After Heart Bypass Surgery (Estonian) * Amiodarone, ADULT (Estonian) * Apixaban, ADULT (Estonian) * Furosemide, ADULT (Estonian) * Oxycodone and Acetaminophen, ADULT (Estonian) * Potassium Chloride, ADULT (Estonian) * Spironolactone, ADULT (Estonian) * Hydralazine, ADULT (Estonian) documented in this encounter Medications at Time [...] tablet 06/11/2023 4 metoprolol succinate ER (TOPROL-XL) 50 MG [...] Sleep. 4 documented as of this encounter Progress Notes * Zully Moreno RN - 06/11/2023 2:55 PM CST Has been ambulating independently without difficulty. Planning home today. Reviewed Afib sx, treatment plan as detailed in MD notes. Reinforced home activity instructions. Pt with good recall of infoprovided. Will fax referral to [facility]. NG ANALYST * Monica Sierra RN - 06/11/2023 2:46 PM CST Problem: Reduced risk for falls/injury Goal: Reduced Risk for Falls/Injury 06/11/2023 1446 by Monica Sierra RN Outcome: Adequate for Discharge 06/11/2023 0805 by Monica Sierra RN Outcome: Progressing Goal: Reduced Risk of Confusion (Acute vs Chronic) 06/11/2023 1446 by Monica Sierra RN Outcome: Adequate for Discharge 06/11/2023 0805 by Monica Sierra RN Outcome: Progressing Goal: Reduced Risk of Symptomatic Depression 06/11/2023 1446 by Monica Sierra RN Outcome: Adequate for Discharge 06/11/2023 0805 by Monica Sierar RN Outcome: Progressing Goal: Reduced Risk of Altered Elimination 06/11/2023 1446 by Monica Sierra RN Outcome: Adequate for Discharge 06/11/2023 0805 by Monica Sierra RN Outcome: Progressing Goal: Reduced Risk of Dizziness/Vertigo/Balance 06/11/2023 1446 by Monica Sierra RN Outcome: Adequate for Discharge 06/11/2023 0805 by Monica Sierra RN Outcome: Progressing Goal: Reduced Risk of Polypharmacy 06/11/2023 1446 by Monica Sierra RN Outcome: Adequate for Discharge 06/11/2023 0805 by Moncia Sierra RN Outcome: Progressing Problem: Fluid Volume - Imbalanced Goal: Absence of imbalanced fluid volume signs and symptoms 06/11/2023 1446 by Monica Sierra RN Outcome: Adequate for Discharge 06/11/2023 0805 by Monica Sierra RN Outcome: Progressing Problem: Gas Exchange - Impaired Goal: Adequate oxygenation 06/11/2023 1446 by Monica Sierra RN Outcome: Adequate for Discharge 06/11/2023 0805 by Monica Sierra RN Outcome: Progressing Problem: Infection - Risk of, Central Venous Catheter-Associated Bloodstream Infection Goal: Absence of infection signs and symptoms 06/11/2023 1446 by Monica Sierra RN Outcome: Adequate for Discharge 06/11/2023 0805 by Monica Sierra RN Outcome: Progressing Problem: Infection - Risk of, Septic Shock Goal: Absence of infection signs and symptoms 06/11/2023 1446 by Monica Sierra RN Outcome: Adequate for Discharge 06/11/2023 0805 by Monica Sierra RN Outcome: Progressing Problem: Infection - Risk of, Urinary Catheter-Associated Urinary Tract Infection Goal: Absence of infection signs and symptoms 06/11/2023 1446 by Monica Sierra RN Outcome: Adequate for Discharge 06/11/2023 0805 by Monica Sierra RN Outcome: Progressing Problem: Infection - Risk of, Ventilator-Associated Pneumonia Goal: Absence of infection signs and symptoms 06/11/2023 1446 by Monica Sierra RN Outcome: Adequate for Discharge 06/11/2023 0805 by Monica Sierra RN Outcome: Progressing Problem: Mental Status - Risk of, Impaired Goal: Mental status restored to baseline 06/11/2023 1446 by Monica Sierra RN Outcome: Adequate for Discharge 06/11/2023 0805 by Monica Sierra RN Outcome: Progressing Problem: Pain - Acute Goal: Achieve acceptable pain level 06/11/2023 1446 by Monica Sierra RN Outcome: Adequate for Discharge 06/11/2023 0805 by Monica Sierra RN Outcome: Progressing Goal: Reduced pain sensation 06/11/2023 1446 by Monica Sierra RN Outcome: Adequate for Discharge 06/11/2023 0805 by Monica Sierra RN Outcome: Progressing Problem: Skin Integrity - Risk of, Impaired Goal: Skin integrity intact 06/11/2023 1446 by Monica Sierra RN Outcome: Adequate for Discharge 06/11/2023 0805 by Monica Sierra RN Outcome: Progressing Problem: Tissue Perfusion - Cardiopulmonary, Altered Goal: Circulatory function within specified parameters 06/11/2023 1446 by Monica Sierra RN Outcome: Adequate for Discharge 06/11/2023 0805 by Monica Sierra RN Outcome: Progressing Problem: Venous Thromboembolism - Risk of Goal: Absence of deep venous thrombosis 06/11/2023 1446 by Monica Sierra RN Outcome: Adequate for Discharge 06/11/2023 0805 by Monica Sierra RN Outcome: Progressing Problem: Discharge Planning Goal: Knowledge of discharge instructions 06/11/2023 1446 by Monica Sierra RN Outcome: Adequate for Discharge 06/11/2023 0805 by Monica Sierra RN Outcome: Progressing Problem: Discharge Planning Goal: Knowledge of discharge instructions 06/11/2023 1446 by Monica Sierra RN Outcome: Adequate for Discharge 06/11/2023 0805 by Monica Sierra RN Outcome: Progressing Problem: Body Temperature - Risk of, Imbalanced Goal: Body temperature within specified parameters 06/11/2023 1446 by Monica Sierra RN Outcome: Adequate for Discharge 06/11/2023 0805 by Monica Sierra RN Outcome: Progressing Problem: Cardiac Output - Decreased Goal: Cardiac output within specified parameters 06/11/2023 1446 by Monica Sierra RN Outcome: Adequate for Discharge 06/11/2023 0805 by Monica Sierra RN Outcome: Progressing Goal: Heart rate within specified parameters 06/11/2023 1446 by Monica Sierra RN Outcome: Adequate for Discharge 06/11/2023 0805 by Monica Sierra RN Outcome: Progressing Problem: Infection - Risk of, Surgical Site Infection Goal: Absence of infection signs and symptoms 06/11/2023 1446 by Monica Sierra RN Outcome: Adequate for Discharge 06/11/2023 0805 by Monica Sierra RN Outcome: Progressing Goal: Body temperature within specified parameters 06/11/2023 1446 by Monica Sierra RN Outcome: Adequate for Discharge 06/11/2023 0805 by Monica Sierra RN Outcome: Progressing Goal: Glucose level within specified parameters 06/11/2023 1446 by Monica Sierra RN Outcome: Adequate for Discharge 06/11/2023 0805 by Monica Sierra RN Outcome: Progressing Problem: Infection - Risk of, Ventilator-Associated Pneumonia Goal: Absence of pulmonary infection 06/11/2023 1446 by Monica Sierra RN Outcome: Adequate for Discharge 06/11/2023 0805 by Monica Sierra RN Outcome: Progressing Goal: Extubation within 24 hours after coronary artery bypass graft surgery 06/11/2023 1446 by Monica Sierra RN Outcome: Adequate for Discharge 06/11/2023 0805 by Monica Sierra RN Outcome: Progressing Problem: Pain - Acute Goal: Reduced pain sensation 06/11/2023 1446 by Monica Sierra RN Outcome: Adequate for Discharge 06/11/2023 0805 by Monica Sierra RN Outcome: Progressing Problem: Discharge Planning Goal: Knowledge of discharge instructions 06/11/2023 1446 by Monica Sierra RN Outcome: Adequate for Discharge 06/11/2023 0805 by Monica Sierra RN Outcome: Progressing Problem: Pain control/comfort Goal: Promote pain control/comfort 06/11/2023 1446 by Monica Sierra RN Outcome: Adequate for Discharge 06/11/2023 0805 by Monica Sierra RN Outcome: Progressing Problem: Skin integrity, Impaired-wound Goal: Absence of new skin breakdown 06/11/2023 1446 by Monica Sierra RN Outcome: Adequate for Discharge 06/11/2023 0805 by Monica Sierra RN Outcome: Progressing Goal: Evidence of wound healing 06/11/2023 1446 by Monica Sierra RN Outcome: Adequate for Discharge 06/11/2023 0805 by Monica Sierra RN Outcome: Progressing Problem: Skin integrity, Impaired-pressure injury/ulcer Goal: Absence of new skin breakdown 06/11/2023 1446 by Monica Sierra RN Outcome: Adequate for Discharge 06/11/2023 0805 by Monica Sierra RN Outcome: Progressing Goal: Evidence of pressure injury/ulcer healing 06/11/2023 1446 by Monica Sierra RN Outcome: Adequate for Discharge 06/11/2023 0805 by Monica Sierra RN Outcome: Progressing Problem: Skin integrity, at risk Goal: Absence of new skin breakdown 06/11/2023 1446 by Monica Sierra RN Outcome: Adequate for Discharge 06/11/2023 0805 by Monica Sierra RN Outcome: Progressing Problem: Moisture associated skin impairment Goal: Reduce moisture exposure 06/11/2023 1446 by Monica Sierra RN Outcome: Adequate for Discharge 06/11/2023 0805 by Monica Sierra RN Outcome: Progressing Goal: Evidence of wound healing 06/11/2023 1446 by Monica Sierra RN Outcome: Adequate for Discharge 06/11/2023 0805 by Monica Sierra RN Outcome: Progressing Goal: Evidence of pressure injury/ulcer healing 06/11/2023 1446 by Monica Sierra RN Outcome: Adequate for Discharge 06/11/2023 0805 by Monica Sierra RN Outcome: Progressing Goal: Absence of new skin breakdown 06/11/2023 1446 by Monica Sierra RN Outcome: Adequate for Discharge 06/11/2023 0805 by Monica Sierra RN Outcome: Progressing Problem: Infection - Risk of, Central Venous Catheter-Associated Bloodstream Infection Goal: Absence of Central Venous Catheter Associated Bloodstream Infection Signs and Symptoms 06/11/2023 1446 by Monica Sierra RN Outcome: Adequate for Discharge 06/11/2023 0805 by Monica Sierra RN Outcome: Progressing NG ANALYST * JAKOB Rich - 06/11/2023 1:58 PM CST Daily Cardiothoracic Surgery Progress Note ID: Kendy Salcido is a 77-year-old female : 1945 DAVIN ESTRADA MD OPERATIVE PROCEDURE: Coronary artery bypass grafting ?? 3 with saphenous vein to OM1, left internal mammary artery to left anterior descending artery, right internal mammary artery to right coronary artery, #40 Atricure clip. Findings: CAD, poor veins POSTOPERATIVE DAY: 6 SURGEON: Dr. Ahmet Olmos covering HPI: Kendy Salcido is a 77 year old patient of who has been referred to me for considerationof coronary artery bypass grafting. She has a past medical history of ovarian cancer diagnosed in her 40s without recurrence and hypertension She had a recent admission to the hospital (03/2023) due to palpitations. At the time of admission, she was noted to have paroxysmal supraventricular tachycardia and is set to undergo ablation in June of 2023. Echocardiogram during her hospitalization demonstrated an EF of 30-35% with jvgf-fw-lfnaxkqi aortic insufficiency. She was started on guideline directed medical therapy for cardiomyopathy including metoprolol succinate and Entresto. She was unable to advance both medications as she became lightheaded and dizzy and is now only taking Entresto once daily. She underwent left heart catheterization on May 21, 2023 which demonstrated normal left main, lad 80% proximal stenosis, D1 90% stenosis, OM1 70 and 80% stenosis, RCA calcified 70 and 80% mid stenosis. Regarding her symptoms, she endorses worsening shortness of breath denies chest pain, PND, orthopnea, syncope, or presyncope. SUBJECTIVE Patient sitting up in bed this morning. Ready for discharge. Discharge taught yesterday. Having BMs. PLAN: CT ASSESSMENT Coronary artery disease with reduced left ventricular function EF 30 to 35% status post coronary artery bypass grafting: Hemodynamically stable. Sinus rhythm 70s. Systolic BP 102-145. Continue aspirin, statin, beta-akiko - Metoprolol succinate 25mg BID (home dose) - with hold parameters and titrate up as tolerated. Resume home Entresto Continue spironolactone and hydralazine 25 mg po TID Change to Eliqius per patient request Add jardiance as OP? D/C chest tubes 06/07 Pacing wires d/c yesterday. Cardiac rehab. PT and OT to follow as well to assist with ambulation. Postoperative atelectasis: Extubated uneventfully. On room air satting 95% Pulmonary toilet C&DB IS wean oxygen. EZPAP with nebs as needed. Recheck chest x-ray in the morning. Pulls 650 on IS Postoperative expected acute blood loss anemia: Preoperative hemoglobin/hematocrit 13.1/40.3-> today 11.9/35.4 Will continue to monitor. Recheck CBC in the morning. Postoperative hyperglycemia: Not diabetic. Preoperative hemoglobin A1C was 5.3 Continue sliding scale insulin with Accuchecks AC &HS. Postoperative hypervolemia: Preoperative weight 59.9 Today's weight 61.2kg Diurese with Lasix add jardiance as OP. Maintain negative fluid balance. Daily weights. Postoperative pain control and bowel regimen: Senna, oxycodone, lidocaine patches lidocaine MiraLAX daily. DVT prophylaxis: MOMO hose. Subcu heparin. PPI prophylaxis: Pepcid. OBJECTIVE Intake/Output last 3 shifts: I/O last 3 completed shifts: In: 922 [P.O.:922] Out: - Preoperative Weight: 59.9 Today's Weight: Last 2 Recorded Weights 06/10/23 0522 06/11/23 0605 Weight: 62.5 kg (137 lb 12.6 oz) 61.2 kg (134 lb 14.7 oz) Vital signs in the last 24 hours: Temp: [98.4 ??F (36.9 ??C)-98.6 ??F (37 ??C)] 98.6 ??F (37 ??C) Pulse: [45-114] 71 Resp: [17-20] 20 BP: (102-145)/(45-88) 126/56 Physical Exam: Constitutional: She is oriented to person, place, and time. She appears well- developed and well-nourished. No distress. HENT: Nose: Nasal mucosa is pink. Mouth/Throat: Oropharynx is clear and moist and mucous membranes are normal. No oropharyngeal exudate. Neck: No JVD present. Cardiovascular: Normal rate, regular rhythm, S1 normal, S2 normal. PMI is normal size and not displaced. No edema with intact distal pulses. Pulmonary/Chest: Lungs are clear to auscultation except diminished bases. Effort normal and breath sounds normal. No respiratory distress. Oxygen saturation 95 on RA. Abdominal: Soft, and nontender with positive bowel sounds. Musculoskeletal: Normal range of motion. +1 edema L>R Neurological: She is alert and oriented to person, place, and time. Skin: Skin is warm and dry. Psychiatric: She has a normal mood and affect. Her behavior is normal. Incision: Mediastinal incision with Prineo in place, CDI. Bilateral leg incisions CDI. Labs and Cultures: Lab Results Component Value Date NA 131 (L) 06/11/2023 K 3.7 06/11/2023 CL 97 (L) 06/11/2023 CO2 28.6 06/11/2023 AGAP 5.4 06/11/2023 BUN 16 06/11/2023 CR 0.81 06/11/2023 GLU 106 06/11/2023 CA 8.3 (L) 06/11/2023 Lab Results Component Value Date WBC 7.41 06/11/2023 HGB 11.9 (L) 06/11/2023 PLT 211 06/11/2023 Lab Results Component Value Date CHOL 231 05/21/2023 TRI 53 05/21/2023 HDL 74 05/21/2023 TP 6.2 (L) 06/10/2023 ALB 2.5 (L) 06/10/2023 ALT 33 06/10/2023 HGBA1C 5.3 06/04/2023 TSH 3.820 (H) 04/28/2023 Lab Results Component Value Date INR 1.6 (H) 06/11/2023 INR 1.3 (H) 06/10/2023 INR 1.1 06/08/2023 INR 1.1 06/07/2023 INR 1.1 06/06/2023 PROTIME 17.7 (H) 06/11/2023 PROTIME 14.8 (H) 06/10/2023 PROTIME 12.1 06/08/2023 PROTIME 12.5 06/07/2023 PROTIME 12.8 (H) 06/06/2023 Imaging: Recent imaging studies have been reviewed Review of ECG and Tele: NSR Signed JAKOB Rich 06/11/2023 Cosigned by Ahmet Levi MD at 06/12/2023 6:18 AM CODING ANALYST NG ANALYST NG ANALYST * Monica Sierra RN - 06/11/2023 8:05 AM CST Problem: Reduced risk for falls/injury Goal: Reduced Risk for Falls/Injury Outcome: Progressing Goal: Reduced Risk of Confusion (Acute vs Chronic) Outcome: Progressing Goal: Reduced Risk of Symptomatic Depression Outcome: Progressing Goal: Reduced Risk of Altered Elimination Outcome: Progressing Goal: Reduced Risk of Dizziness/Vertigo/Balance Outcome: Progressing Goal: Reduced Risk of Polypharmacy Outcome: Progressing Problem: Fluid Volume - Imbalanced Goal: Absence of imbalanced fluid volume signs and symptoms Outcome: Progressing Problem: Gas Exchange - Impaired Goal: Adequate oxygenation Outcome: Progressing Problem: Infection - Risk of, Central Venous Catheter-Associated Bloodstream Infection Goal: Absence of infection signs and symptoms Outcome: Progressing Problem: Infection - Risk of, Septic Shock Goal: Absence of infection signs and symptoms Outcome: Progressing Problem: Infection - Risk of, Urinary Catheter-Associated Urinary Tract Infection Goal: Absence of infection signs and symptoms Outcome: Progressing Problem: Infection - Risk of, Ventilator-Associated Pneumonia Goal: Absence of infection signs and symptoms Outcome: Progressing Problem: Mental Status - Risk of, Impaired Goal: Mental status restored to baseline Outcome: Progressing Problem: Pain - Acute Goal: Achieve acceptable pain level Outcome: Progressing Goal: Reduced pain sensation Outcome: Progressing Problem: Skin Integrity - Risk of, Impaired Goal: Skin integrity intact Outcome: Progressing Problem: Tissue Perfusion - Cardiopulmonary, Altered Goal: Circulatory function within specified parameters Outcome: Progressing Problem: Venous Thromboembolism - Risk of Goal: Absence of deep venous thrombosis Outcome: Progressing Problem: Discharge Planning Goal: Knowledge of discharge instructions Outcome: Progressing Problem: Discharge Planning Goal: Knowledge of discharge instructions Outcome: Progressing Problem: Body Temperature - Risk of, Imbalanced Goal: Body temperature within specified parameters Outcome: Progressing Problem: Cardiac Output - Decreased Goal: Cardiac output within specified parameters Outcome: Progressing Goal: Heart rate within specified parameters Outcome: Progressing Problem: Infection - Risk of, Surgical Site Infection Goal: Absence of infection signs and symptoms Outcome: Progressing Goal: Body temperature within specified parameters Outcome: Progressing Goal: Glucose level within specified parameters Outcome: Progressing Problem: Infection - Risk of, Ventilator-Associated Pneumonia Goal: Absence of pulmonary infection Outcome: Progressing Goal: Extubation within 24 hours after coronary artery bypass graft surgery Outcome: Progressing Problem: Pain - Acute Goal: Reduced pain sensation Outcome: Progressing Problem: Discharge Planning Goal: Knowledge of discharge instructions Outcome: Progressing Problem: Pain control/comfort Goal: Promote pain control/comfort Outcome: Progressing Problem: Skin integrity, Impaired-wound Goal: Absence of new skin breakdown Outcome: Progressing Goal: Evidence of wound healing Outcome: Progressing Problem: Skin integrity, Impaired-pressure injury/ulcer Goal: Absence of new skin breakdown Outcome: Progressing Goal: Evidence of pressure injury/ulcer healing Outcome: Progressing Problem: Skin integrity, at risk Goal: Absence of new skin breakdown Outcome: Progressing Problem: Moisture associated skin impairment Goal: Reduce moisture exposure Outcome: Progressing Goal: Evidence of wound healing Outcome: Progressing Goal: Evidence of pressure injury/ulcer healing Outcome: Progressing Goal: Absence of new skin breakdown Outcome: Progressing Problem: Infection - Risk of, Central Venous Catheter-Associated Bloodstream Infection Goal: Absence of Central Venous Catheter Associated Bloodstream Infection Signs and Symptoms Outcome: Progressing NG ANALYST * Junior Streeter MD - 06/10/2023 12:08 PM CST Images from the original note were not included. Cardiology Daily Progress Note ID: Kendy Salcido is a 77-year-old female : 1945 LOS: 5 SUBJECTIVE Interval History Last 24 hours: The patient specifically denies palpitation. ROS: Neg Medications: Scheduled Meds: amiodarone 400 mg Oral BID aspirin 81 mg Oral Daily atorvastatin 80 mg Oral Daily calcium citrate 1,900 mg Oral Daily docusate sodium 100 mg Oral Daily famotidine 20 mg Intravenous Q24H Or famotidine 20 mg Oral Q24H furosemide 40 mg Intravenous Daily insulin lispro 0-6 Units Subcutaneous 4x Daily WC lidocaine 1 patch Transdermal Q24H magnesium oxide 400 mg Oral Daily metoprolol succinate ER 25 mg Oral BID normal saline 3-10 mL Intravenous Q8H polyethylene glycol 17 g Oral Daily potassium chloride 20 mEq Oral Daily sacubitril-valsartan 1 tablet Oral BID senna-docusate 1 tablet Oral BID spironolactone 12.5 mg Oral Daily vitamin B-12 500 mcg Oral Daily vitamin C 1,000 mg Oral Daily Vitamin D3 50 mcg Oral Daily vitamin E 400 Units Oral Daily warfarin 5 mg Oral Daily (warfarin) Continuous Infusions: sodium chloride PRN Meds: acetaminophen OR acetaminophen OR [DISCONTINUED] acetaminophen, bisacodyl, bisacodyl EC, fentaNYL, fentaNYL, magnesium sulfate, ajpwzhrnn-kydbczqf-kkztxqqmilk, metoclopramide, midazolam, normal saline, ondansetron, oxyCODONE-acetaminophen, sodium chloride (PF), [CANCELED] Arterial line to monitor AND sodium chloride, traMADol, traMADol OBJECTIVE Vital signs in the last 24 hours: Temp: [97.9 ??F (36.6 ??C)-98.8 ??F (37.1 ??C)] 98.8 ??F (37.1 ??C) Pulse: [70-77] 77 Resp: [18] 18 BP: (133-154)/(58-64) 137/62 Intake/Output last 3 shifts: I/O last 3 completed shifts: In: 767 [P.O.:767] Out: 0 Intake/Output this shift: I/O this shift: In: 202 [P.O.:202] Out: - Today's Weight: Last Recorded Weight 06/10/23 0522 Weight: 62.5 kg (137 lb 12.6 oz) Yesterday's Weight: Wt Readings from Last 1 Encounters: 06/10/23 62.5 kg (137 lb 12.6 oz) Weight change in the last 24 hours: 0.9 kg (1 lb 15.8 oz) Examination: GEN: Appears stable and in NAD. HEENT: No JVD or carotid bruits heard. LUNG: Clear to auscultation. HEART: Normal S1, Normal S2. No murmurs gallops or rubs. GI: Bowel sounds present, nontender, nondistended and no organomegaly. EXT: No edema. NEURO: Alert and Oriented. Nonfocal exam. PSYCH: Normal affect. LYMPHATIC: No adenopathy noted. SKIN: No rashes seen. Lines/Drains/Airway: peripheral IV Labs and Cultures: All labs have been reviewed. Pertinent labs include SODIUM S/P/B Date Value Ref Range Status 06/10/2023 133 (L) 136 - 145 MMOL/L Final 06/09/2023 134 (L) 136 - 145 MMOL/L Final 06/08/2023 137 136 - 145 MMOL/L Final POTASSIUM S/P/B Date Value Ref Range Status 06/10/2023 3.2 (L) 3.5 - 5.1 MMOL/L Final 06/09/2023 3.9 3.5 - 5.1 MMOL/L Final Comment: MILD HEMOLYSIS, RESULT MAY BE AFFECTED. 06/08/2023 3.7 3.5 - 5.1 MMOL/L Final Comment: SLIGHT HEMOLYSIS, RESULT MAY BE AFFECTED. CREATININE S/P/B Date Value Ref Range Status 06/10/2023 0.63 0.55 - 1.02 MG/DL Final 06/09/2023 0.72 0.55 - 1.02 MG/DL Final 06/08/2023 0.77 0.55 - 1.02 MG/DL Final Imaging: Recent imaging studies have been reviewed. Telemetry demonstrated no further episodes of A-fib. ASSESSMENT Overall, the patient seems to be doing quite well without any recurrence of A-fib. PLAN CAD: Status post bypass surgery as described above. Recovering as expected. CHF: HFrEF with 30 to 35% ejection fraction presumably due to ischemic cardiomyopathy. Currently onbeta-akiko. Added Entresto and MRA and tolerating the medications. Paroxysmal A-fib: Patient is transition to p.o. Amio 400 mg twice daily. Stroke prophylaxis is now treated with warfarin. Will sign off now. Please have the patient follow-up with Dr. Garcia in cardiology clinic. Signed Junior Streeter MD NG ANALYST * Eagle Lai RN - 06/10/2023 10:04 AM CST Problem: Reduced risk for falls/injury Goal: Reduced Risk for Falls/Injury Outcome: Progressing Goal: Reduced Risk of Confusion (Acute vs Chronic) Outcome: Progressing Goal: Reduced Risk of Symptomatic Depression Outcome: Progressing Goal: Reduced Risk of Altered Elimination Outcome: Progressing Goal: Reduced Risk of Dizziness/Vertigo/Balance Outcome: Progressing Goal: Reduced Risk of Polypharmacy Outcome: Progressing Problem: Fluid Volume - Imbalanced Goal: Absence of imbalanced fluid volume signs and symptoms Outcome: Progressing Problem: Gas Exchange - Impaired Goal: Adequate oxygenation Outcome: Progressing Problem: Infection - Risk of, Central Venous Catheter-Associated Bloodstream Infection Goal: Absence of infection signs and symptoms Outcome: Progressing Problem: Infection - Risk of, Septic Shock Goal: Absence of infection signs and symptoms Outcome: Progressing Problem: Infection - Risk of, Urinary Catheter-Associated Urinary Tract Infection Goal: Absence of infection signs and symptoms Outcome: Progressing Problem: Infection - Risk of, Ventilator-Associated Pneumonia Goal: Absence of infection signs and symptoms Outcome: Progressing Problem: Mental Status - Risk of, Impaired Goal: Mental status restored to baseline Outcome: Progressing Problem: Pain - Acute Goal: Achieve acceptable pain level Outcome: Progressing Goal: Reduced pain sensation Outcome: Progressing Problem: Skin Integrity - Risk of, Impaired Goal: Skin integrity intact Outcome: Progressing Problem: Tissue Perfusion - Cardiopulmonary, Altered Goal: Circulatory function within specified parameters Outcome: Progressing Problem: Venous Thromboembolism - Risk of Goal: Absence of deep venous thrombosis Outcome: Progressing Problem: Discharge Planning Goal: Knowledge of discharge instructions Outcome: Progressing Problem: Discharge Planning Goal: Knowledge of discharge instructions Outcome: Progressing Problem: Body Temperature - Risk of, Imbalanced Goal: Body temperature within specified parameters Outcome: Progressing Problem: Cardiac Output - Decreased Goal: Cardiac output within specified parameters Outcome: Progressing Goal: Heart rate within specified parameters Outcome: Progressing Problem: Infection - Risk of, Surgical Site Infection Goal: Absence of infection signs and symptoms Outcome: Progressing Goal: Body temperature within specified parameters Outcome: Progressing Goal: Glucose level within specified parameters Outcome: Progressing Problem: Infection - Risk of, Ventilator-Associated Pneumonia Goal: Absence of pulmonary infection Outcome: Progressing Goal: Extubation within 24 hours after coronary artery bypass graft surgery Outcome: Progressing Problem: Pain - Acute Goal: Reduced pain sensation Outcome: Progressing Problem: Discharge Planning Goal: Knowledge of discharge instructions Outcome: Progressing Problem: Pain control/comfort Goal: Promote pain control/comfort Outcome: Progressing Problem: Skin integrity, Impaired-wound Goal: Absence of new skin breakdown Outcome: Progressing Goal: Evidence of wound healing Outcome: Progressing Problem: Skin integrity, Impaired-pressure injury/ulcer Goal: Absence of new skin breakdown Outcome: Progressing Goal: Evidence of pressure injury/ulcer healing Outcome: Progressing Problem: Skin integrity, at risk Goal: Absence of new skin breakdown Outcome: Progressing Problem: Moisture associated skin impairment Goal: Reduce moisture exposure Outcome: Progressing Goal: Evidence of wound healing Outcome: Progressing Goal: Evidence of pressure injury/ulcer healing Outcome: Progressing Goal: Absence of new skin breakdown Outcome: Progressing Problem: Infection - Risk of, Central Venous Catheter-Associated Bloodstream Infection Goal: Absence of Central Venous Catheter Associated Bloodstream Infection Signs and Symptoms Outcome: Progressing IA * CAROL Mitchell - 06/10/2023 7:54 AM CST Daily Cardiothoracic Surgery Progress Note ID: Kendy Salcido is a 77-year-old female : 1945 DAVIN ESTRADA MD OPERATIVE PROCEDURE: Coronary artery bypass grafting ?? 3 with saphenous vein to OM1, left internal mammary artery to left anterior descending artery, right internal mammary artery to right coronary artery, #40 Atricure clip. Findings: CAD, poor veins POSTOPERATIVE DAY: 5 SURGEON: Dr. Ahmet Olmos covering HPI: Kendy Salcido is a 77 year old patient of who has been referred to me for considerationof coronary artery bypass grafting. She has a past medical history of ovarian cancer diagnosed in her 40s without recurrence and hypertension She had a recent admission to the hospital (03/2023) due to palpitations. At the time of admission, she was noted to have paroxysmal supraventricular tachycardia and is set to undergo ablation in June of 2023. Echocardiogram during her hospitalization demonstrated an EF of 30-35% with [id number] aortic insufficiency. She was started on guideline directed medical therapy for cardiomyopathy including metoprolol succinate and Entresto. She was unable to advance both medications as she became lightheaded and dizzy and is now only taking Entresto once daily. She underwent left heart catheterization on May 21, 2023 which demonstrated normal left main, lad 80% proximal stenosis, D1 90% stenosis, OM1 70 and 80% stenosis, RCA calcified 70 and 80% mid stenosis. Regarding her symptoms, she endorses worsening shortness of breath denies chest pain, PND, orthopnea, syncope, or presyncope. SUBJECTIVE Patient seen and examined this a.m. She was sitting in the chair. She denied chest pain or shortness of breath. [place] her pain was well-controlled. Pulls 650 on IS. + BM Lab system was down - NO INR drawn as of yet. Monitor daily for goal INR 2-3 give 5 mg tonight PLAN: CT ASSESSMENT Coronary artery disease with reduced left ventricular function EF 30 to 35% status post coronary artery bypass grafting: Hemodynamically stable. Sinus rhythm. Systolic BP 140-150. On beta akiko, entresto resumed. Add spironolactone today Remove IJ Remove wires Restart Aspirin 81 mg daily. Restart statin - . Restart Beta-akiko - Metoprolol succinate 25mg BID (home dose) - with hold parameters and titrateup as tolerated. Resume home Entresto Add spironolactone Add hydralazine 25 mg po TID Add jardiance as OP? D/C chest tubes 06/07 Will d/c pacing wires and begin OAC today per EP Cardiac rehab. PT and OT to follow as well to assist with ambulation. Postoperative atelectasis: Extubated uneventfully. On room air satting 96% Pulmonary toilet C&DB IS wean oxygen. EZPAP with nebs as needed. Recheck chest x-ray in the morning. Pulls 650 on IS Postoperative expected acute blood loss anemia: Preoperative hemoglobin/hematocrit 13.1/40.3-> 10.3/30.6 Will continue to monitor. Recheck CBC in the morning. Postoperative hyperglycemia: Not diabetic. Preoperative hemoglobin A1C was 5.3 Will DC insulin drip and convert to sliding scale insulin with Accuchecks AC &HS. Postoperative hypervolemia: Preoperative weight 59.9 Today's weight 62.3 kg Diurese with Lasix add jardiance as OP. Maintain negative fluid balance. Daily weights. Postoperative pain control and bowel regimen: Senna, oxycodone, lidocaine patches lidocaine MiraLAX daily. DVT prophylaxis: MOMO acevedo. Subcu heparin. PPI prophylaxis: Pepcid. OBJECTIVE Intake/Output last 3 shifts: I/O last 3 completed shifts: In: 767 [P.O.:767] Out: 0 Preoperative Weight: 59.9 Today's Weight: Last 2 Recorded Weights 06/09/23 0500 06/10/23 0522 Weight: 62.3 kg (137 lb 5.6 oz) 62.5 kg (137 lb 12.6 oz) Vital signs in the last 24 hours: Temp: [97.9 ??F (36.6 ??C)-98.2 ??F (36.8 ??C)] 98.1 ??F (36.7 ??C) Pulse: [70-78] 71 Resp: [17-18] 18 BP: (133-154)/(58-68) 154/64 Physical Exam: Constitutional: She is oriented to person, place, and time. She appears well- developed and well-nourished. No distress. HENT: Nose: Nasal mucosa is pink. Mouth/Throat: Oropharynx is clear and moist and mucous membranes are normal. No oropharyngeal exudate. Neck: Neck supple. No JVD present. Cardiovascular: Normal rate, regular rhythm, S1 normal, S2 normal. PMI is normal size and not displaced. No edema with intact distal pulses. Pulmonary/Chest: Lungs are clear to auscultation except diminished bases. Effort normal and breath sounds normal. No respiratory distress. Oxygen saturation 96 on RA. Abdominal: Soft, and nontender with positive bowel sounds. She exhibits no abdominal bruit and no mass. There is no hepatosplenomegaly. Musculoskeletal: Normal range of motion. +2 edema L>R Neurological: She is alert and oriented to person, place, and time. Skin: Skin is warm and dry. Psychiatric: She has a normal mood and affect. Her behavior is normal. Thought content normal. Incision: CDI, Macho wrap removed BLE. Labs and Cultures: Lab Results Component Value Date NA 133 (L) 06/10/2023 K 3.2 (L) 06/10/2023 CL 97 (L) 06/10/2023 CO2 29.8 06/10/2023 AGAP 6.2 06/10/2023 BUN 14 06/10/2023 CR 0.63 06/10/2023 GLU 100 06/10/2023 CA 7.8 (L) 06/10/2023 Lab Results Component Value Date WBC 5.44 06/10/2023 HGB 10.2 (L) 06/10/2023 PLT 162 06/10/2023 Lab Results Component Value Date CHOL 231 05/21/2023 TRI 53 05/21/2023 HDL 74 05/21/2023 TP 7.1 06/04/2023 ALB 3.7 06/04/2023 ALT 22 06/04/2023 HGBA1C 5.3 06/04/2023 TSH 3.820 (H) 04/28/2023 Lab Results Component Value Date INR 1.1 06/08/2023 INR 1.1 06/07/2023 INR 1.1 06/06/2023 INR 1.0 06/04/2023 PROTIME 12.1 06/08/2023 PROTIME 12.5 06/07/2023 PROTIME 12.8 (H) 06/06/2023 PROTIME 11.5 06/04/2023 Imaging: Recent imaging studies have been reviewed Review of ECG and Tele: NSR Signed CAROL MITCHELL 06/10/2023 Cosigned by Sara Olmos MD at 06/10/2023 6:54 PM CODING ANALYST NG ANALYST NG ANALYST NG ANALYST * CAROL Mitchell - 06/09/2023 12:36 PM CST Daily Cardiothoracic Surgery Progress Note ID: Kendy Salcido is a 77-year-old female : 1945 DAVIN ESTRADA MD OPERATIVE PROCEDURE: CABG x 3 SVG to OM1, RICHTER to LAD, RUSSEL to RCA, #40 Atricure clip Findings: CAD, poor veins POSTOPERATIVE DAY: 3 SURGEON: Dr. Ahmet Olmos covering HPI: Kendy Salcido is a 77 year old patient of who has been referred to me for considerationof coronary artery bypass grafting. She has a past medical history of ovarian cancer diagnosed in her 40s without recurrence and hypertension She had a recent admission to the hospital (03/2023) due to palpitations. At the time of admission, she was noted to have paroxysmal supraventricular tachycardia and is set to undergo ablation in June of 2023. Echocardiogram during her hospitalization demonstrated an EF of 30-35% with [id number]-[id number] aortic insufficiency. She was started on guideline directed medical therapy for cardiomyopathy including metoprolol succinate and Entresto. She was unable to advance both medications as she became lightheaded and dizzy and is now only taking Entresto once daily. She underwent left heart catheterization on May 21, 2023 which demonstrated normal left main, lad 80% proximal stenosis, D1 90% stenosis, OM1 70 and 80% stenosis, RCA calcified 70 and 80% mid stenosis. Regarding her symptoms, she endorses worsening shortness of breath denies chest pain, PND, orthopnea, syncope, or presyncope. SUBJECTIVE Patient seen and examined this a.m. She was sitting in the chair. She denied chest pain or shortness of breath. [place] her pain was well-controlled. Pulls 650 on IS. + BM PLAN: CT ASSESSMENT Coronary artery disease with reduced left ventricular function EF 30 to 35% status post coronary artery bypass grafting: Hemodynamically stable. Sinus rhythm. Systolic BP 120-140. On beta akiko, entresto resumed. Remove IJ Restart Aspirin 81 mg daily. Restart statin - . Restart Beta-akiko - Metoprolol succinate 25mg BID (home dose) - with hold parameters and titrateup as tolerated. Resume Entresto D/C chest tubes 06/07 Will d/c pacing wires and begin OAC in AM per EP Cardiac rehab. PT and OT to follow as well to assist with ambulation. Postoperative atelectasis: Extubated uneventfully. On room air satting 96% Pulmonary toilet C&DB IS wean oxygen. EZPAP with nebs as needed. Recheck chest x-ray in the morning. Pulls 650 on IS Postoperative expected acute blood loss anemia: Preoperative hemoglobin/hematocrit 13.1/40.3-> 10.3/30.6 Will continue to monitor. Recheck CBC in the morning. Postoperative hyperglycemia: Not diabetic. Preoperative hemoglobin A1C was 5.3 Will DC insulin drip and convert to sliding scale insulin with Accuchecks AC &HS. Postoperative hypervolemia: Preoperative weight 59.9 Today's weight 62.3 kg Diurese with Lasix. Maintain negative fluid balance. Daily weights. Postoperative pain control and bowel regimen: Senna, oxycodone, lidocaine patches lidocaine MiraLAX daily. DVT prophylaxis: MOMO hose. Subcu heparin. PPI prophylaxis: Pepcid. OBJECTIVE Intake/Output last 3 shifts: I/O last 3 completed shifts: In: 1400 [P.O.:1400] Out: 0 Preoperative Weight: 59.9 Today's Weight: Last 2 Recorded Weights 06/08/23 0500 06/09/23 0500 Weight: 61.4 kg (135 lb 5.8 oz) 62.3 kg (137 lb 5.6 oz) Vital signs in the last 24 hours: Temp: [97.9 ??F (36.6 ??C)-98.5 ??F (36.9 ??C)] 97.9 ??F (36.6 ??C) Pulse: [70-139] 78 Resp: [16-20] 17 BP: (110-154)/(58-71) 135/68 Physical Exam: Constitutional: She is oriented to person, place, and time. She appears well- developed and well-nourished. No distress. HENT: Nose: Nasal mucosa is pink. Mouth/Throat: Oropharynx is clear and moist and mucous membranes are normal. No oropharyngeal exudate. Neck: Neck supple. No JVD present. Cardiovascular: Normal rate, regular rhythm, S1 normal, S2 normal. PMI is normal size and not displaced. No edema with intact distal pulses. Pulmonary/Chest: Lungs are clear to auscultation except diminished bases. Effort normal and breath sounds normal. No respiratory distress. Oxygen saturation 96 on RA. Abdominal: Soft, and nontender with positive bowel sounds. She exhibits no abdominal bruit and no mass. There is no hepatosplenomegaly. Musculoskeletal: Normal range of motion. Neurological: She is alert and oriented to person, place, and time. Skin: Skin is warm and dry. Psychiatric: She has a normal mood and affect. Her behavior is normal. Thought content normal. Incision: CDI, Macho wrap removed BLE. Labs and Cultures: Lab Results Component Value Date NA 134 (L) 06/09/2023 K 3.9 06/09/2023 CL 99 06/09/2023 CO2 30.2 06/09/2023 AGAP 4.8 (L) 06/09/2023 BUN 20 (H) 06/09/2023 CR 0.72 06/09/2023 GLU 113 (H) 06/09/2023 CA 7.9 (L) 06/09/2023 Lab Results Component Value Date WBC 6.65 06/09/2023 HGB 10.3 (L) 06/09/2023 PLT 144 (L) 06/09/2023 Lab Results Component Value Date CHOL 231 05/21/2023 TRI 53 05/21/2023 HDL 74 05/21/2023 TP 7.1 06/04/2023 ALB 3.7 06/04/2023 ALT 22 06/04/2023 HGBA1C 5.3 06/04/2023 TSH 3.820 (H) 04/28/2023 Lab Results Component Value Date INR 1.1 06/08/2023 INR 1.1 06/07/2023 INR 1.1 06/06/2023 INR 1.0 06/04/2023 PROTIME 12.1 06/08/2023 PROTIME 12.5 06/07/2023 PROTIME 12.8 (H) 06/06/2023 PROTIME 11.5 06/04/2023 Imaging: Recent imaging studies have been reviewed Review of ECG and Tele: NSR Signed CAROL MITCHELL 06/09/2023 Cosigned by Sara Olmos MD at 06/10/2023 6:52 PM CODING ANALYST NG ANALYST NG ANALYST * Rocio Phillips RN - 06/09/2023 12:09 PM CST 06/09/23 1206 Gait Gait Steady;Good Balance Gait Assistance Independent Cardiac Rehab Phase II referral Cardiac Rehab Phase II Referral Yes Referral Facility [facility] Patient Complaints Patient Complaints Denies Complaints Therapeutic Exercise Comment Therapeutic Exercise Comment Patient independent in hallways, walking laps without complaints. Patient had BM this AM. I hope I get to go home tomorrow. CV surgery packet provided (Risk Factor manual, Moving Right Along book, Phase 2 info sheet with contact #). Education completed regarding CABG, activity guidelines to aid recovery. Reinforced importance of follow up as directed by MD. Review of secondary prevention goals for Blood Pressure and Lipids. Discussed benefits of a aerobic exercise program, AHA goals for exercise and guidelines for initiating a progressive home exercise routine. Provided overview of Phase 2 Cardiac Rehab benefits, program details & referral process. Will fax Phase 2 referral to [facility] in [place]. Method: One to One, Teachback Process, Verbal Instruction, and Written Instruction Recipient: Patient Readiness to Learn: Ready Barriers to Learning: None Teaching Response: Ask Questions and Verbalizes Understanding NG ANALYST * Junior Streeter MD - 06/09/2023 10:59 AM CST Images from the original note were not included. Cardiology Daily Progress Note ID: Kendy Salcido is a 77-year-old female : 1945 LOS: 4 SUBJECTIVE Interval History Last 24 hours: The patient reports symptoms of palpitation. ROS: Above. Medications: Scheduled Meds: aspirin 81 mg Oral Daily atorvastatin 80 mg Oral Daily docusate sodium 100 mg Oral Daily famotidine 20 mg Intravenous Q24H Or famotidine 20 mg Oral Q24H furosemide 20 mg Intravenous Daily heparin (porcine) 5,000 Units Subcutaneous 3 times per day insulin lispro 0-6 Units Subcutaneous 4x Daily WC lidocaine 1 patch Transdermal Q24H metoprolol succinate ER 25 mg Oral BID normal saline 3-10 mL Intravenous Q8H polyethylene glycol 17 g Oral Daily potassium chloride 20 mEq Oral Daily senna-docusate 1 tablet Oral BID vitamin B-12 500 mcg Oral Daily vitamin C 1,000 mg Oral Daily Continuous Infusions: amiodarone 0.5 mg/min (06/09/23 0237) sodium chloride PRN Meds: acetaminophen OR acetaminophen OR [DISCONTINUED] acetaminophen, bisacodyl, bisacodyl EC, fentaNYL, fentaNYL, magnesium sulfate, hgepctzzg-xusietvo-qehabfqvsxu, metoclopramide, midazolam, normal saline, ondansetron, oxyCODONE-acetaminophen, sodium chloride (PF), [CANCELED] Arterial line to monitor AND sodium chloride, traMADol, traMADol OBJECTIVE Vital signs in the last 24 hours: Temp: [97.9 ??F (36.6 ??C)-98.5 ??F (36.9 ??C)] 97.9 ??F (36.6 ??C) Pulse: [70-139] 78 Resp: [16-20] 17 BP: (110-154)/(58-71) 135/68 Intake/Output last 3 shifts: I/O last 3 completed shifts: In: 1400 [P.O.:1400] Out: 0 Intake/Output this shift: I/O this shift: In: 100 [P.O.:100] Out: - Today's Weight: Last Recorded Weight 06/09/23 0500 Weight: 62.3 kg (137 lb 5.6 oz) Yesterday's Weight: Wt Readings from Last 1 Encounters: 06/09/23 62.3 kg (137 lb 5.6 oz) Weight change in the last 24 hours: 0.2 kg (7.1 oz) Examination: GEN: Appears stable and in NAD. HEENT: No JVD or carotid bruits heard. LUNG: Clear to auscultation. HEART: Normal S1, Normal S2. No murmurs gallops or rubs. GI: Bowel sounds present, nontender, nondistended and no organomegaly. EXT: No edema. NEURO: Alert and Oriented. Nonfocal exam. PSYCH: Normal affect. LYMPHATIC: No adenopathy noted. SKIN: No rashes seen. Lines/Drains/Airway: peripheral IV Labs and Cultures: All labs have been reviewed. Pertinent labs include SODIUM S/P/B Date Value Ref Range Status 06/09/2023 134 (L) 136 - 145 MMOL/L Final 06/08/2023 137 136 - 145 MMOL/L Final 06/07/2023 140 136 - 145 MMOL/L Final POTASSIUM S/P/B Date Value Ref Range Status 06/09/2023 3.9 3.5 - 5.1 MMOL/L Final Comment: MILD HEMOLYSIS, RESULT MAY BE AFFECTED. 06/08/2023 3.7 3.5 - 5.1 MMOL/L Final Comment: SLIGHT HEMOLYSIS, RESULT MAY BE AFFECTED. 06/07/2023 4.1 3.5 - 5.1 MMOL/L Final CREATININE S/P/B Date Value Ref Range Status 06/09/2023 0.72 0.55 - 1.02 MG/DL Final 06/08/2023 0.77 0.55 - 1.02 MG/DL Final 06/07/2023 0.84 0.55 - 1.02 MG/DL Final Imaging: Recent imaging studies have been reviewed. ASSESSMENT Overall, patient had a episode of paroxysmal A-fib yesterday going about 190 bpm. She is back in normal sinus rhythm on IV Amio. The patient describes having paroxysmal A-fib even prior to her bypasssurgery. PLAN CAD: Status post bypass surgery as described above. Recovering as expected. CHF: HFrEF with 30 to 35% ejection fraction presumably due to ischemic cardiomyopathy. Currently onbeta-akiko. Will add low-dose Entresto which should help with the blood pressure. Paroxysmal A-fib: I do not believe this is perioperative A-fib which is actually fairly common occurring at about 30% rate. However, she has paroxysmal A-fib even before the surgery. Therefore, we will continue with amiodarone for now and switch over to p.o Amio. Eventually she should be taken off the amiodarone and alternate strategy should be entertained. For now the more important issues to stroke prophylaxis for which I will put her on Eliquis. Signed Junior Streeter MD NG ANALYST * Eagle Lai RN - 06/09/2023 10:21 AM CST Problem: Reduced risk for falls/injury Goal: Reduced Risk for Falls/Injury Outcome: Progressing Goal: Reduced Risk of Confusion (Acute vs Chronic) Outcome: Progressing Goal: Reduced Risk of Symptomatic Depression Outcome: Progressing Goal: Reduced Risk of Altered Elimination Outcome: Progressing Goal: Reduced Risk of Dizziness/Vertigo/Balance Outcome: Progressing Goal: Reduced Risk of Polypharmacy Outcome: Progressing Problem: Fluid Volume - Imbalanced Goal: Absence of imbalanced fluid volume signs and symptoms Outcome: Progressing Problem: Gas Exchange - Impaired Goal: Adequate oxygenation Outcome: Progressing Problem: Infection - Risk of, Central Venous Catheter-Associated Bloodstream Infection Goal: Absence of infection signs and symptoms Outcome: Progressing Problem: Infection - Risk of, Septic Shock Goal: Absence of infection signs and symptoms Outcome: Progressing Problem: Infection - Risk of, Urinary Catheter-Associated Urinary Tract Infection Goal: Absence of infection signs and symptoms Outcome: Progressing Problem: Infection - Risk of, Ventilator-Associated Pneumonia Goal: Absence of infection signs and symptoms Outcome: Progressing Problem: Mental Status - Risk of, Impaired Goal: Mental status restored to baseline Outcome: Progressing Problem: Pain - Acute Goal: Achieve acceptable pain level Outcome: Progressing Goal: Reduced pain sensation Outcome: Progressing Problem: Skin Integrity - Risk of, Impaired Goal: Skin integrity intact Outcome: Progressing Problem: Tissue Perfusion - Cardiopulmonary, Altered Goal: Circulatory function within specified parameters Outcome: Progressing Problem: Venous Thromboembolism - Risk of Goal: Absence of deep venous thrombosis Outcome: Progressing Problem: Discharge Planning Goal: Knowledge of discharge instructions Outcome: Progressing Problem: Discharge Planning Goal: Knowledge of discharge instructions Outcome: Progressing Problem: Body Temperature - Risk of, Imbalanced Goal: Body temperature within specified parameters Outcome: Progressing Problem: Cardiac Output - Decreased Goal: Cardiac output within specified parameters Outcome: Progressing Goal: Heart rate within specified parameters Outcome: Progressing Problem: Infection - Risk of, Surgical Site Infection Goal: Absence of infection signs and symptoms Outcome: Progressing Goal: Body temperature within specified parameters Outcome: Progressing Goal: Glucose level within specified parameters Outcome: Progressing Problem: Infection - Risk of, Ventilator-Associated Pneumonia Goal: Absence of pulmonary infection Outcome: Progressing Goal: Extubation within 24 hours after coronary artery bypass graft surgery Outcome: Progressing Problem: Pain - Acute Goal: Reduced pain sensation Outcome: Progressing Problem: Discharge Planning Goal: Knowledge of discharge instructions Outcome: Progressing Problem: Pain control/comfort Goal: Promote pain control/comfort Outcome: Progressing Problem: Skin integrity, Impaired-wound Goal: Absence of new skin breakdown Outcome: Progressing Goal: Evidence of wound healing Outcome: Progressing Problem: Skin integrity, Impaired-pressure injury/ulcer Goal: Absence of new skin breakdown Outcome: Progressing Goal: Evidence of pressure injury/ulcer healing Outcome: Progressing Problem: Skin integrity, at risk Goal: Absence of new skin breakdown Outcome: Progressing Problem: Moisture associated skin impairment Goal: Reduce moisture exposure Outcome: Progressing Goal: Evidence of wound healing Outcome: Progressing Goal: Evidence of pressure injury/ulcer healing Outcome: Progressing Goal: Absence of new skin breakdown Outcome: Progressing Problem: Infection - Risk of, Central Venous Catheter-Associated Bloodstream Infection Goal: Absence of Central Venous Catheter Associated Bloodstream Infection Signs and Symptoms Outcome: Progressing NG ANALYST * Amna Hickman RN - 06/08/2023 2:35 PM CST 06/08/23 1410 06/08/23 1420 Therapeutic Exercise Exercise Modality Rest Walking Activity Status Activity Status Pre-Exercise Post-Exercise Pulse Pulse 83 86 Pulse Rhythm Regular Regular Pulse Assessment Method Monitor Monitor Exercise Episode (Pulse) Pre Exercise;Sitting Post Exercise;Sitting Cardiac Monitoring Heart Rhythm sr sr Blood Pressure BP 110/58 130/60 BP Location Left arm Left arm Exercise Episode (BP) Pre Exercise;Sitting Post Exercise;Sitting SpO2 SpO2 94 % 93 % O2 Device None (Room air) None (Room air) Exercise Episode (SpO2) Pre Exercise;Sitting Post Exercise;Sitting Gait Gait -- Steady Gait Assistance -- Gait Belt;Standby Assistance;Independent Distance Distance Walked -- 600 Feet (third walk of the day, she is okay to walk independently in the halls) Exercise Patient Tolerance -- Well Cardiac Rehab Phase II referral Cardiac Rehab Phase II Referral -- Yes Referral Facility -- [facility] Patient Complaints Patient Complaints -- Denies Complaints Therapeutic Exercise Comment Therapeutic Exercise Comment -- returned to chair, call light within reach Encouraged at least one more walk before bedtime. She did well. She is able to walk independently without an AD. NG ANALYST * Amna Hickman RN - 06/08/2023 1:25 PM CST 06/08/23 1321 Therapeutic Exercise Unable to Treat (Pt was sound asleep when I checked on her around 1230. I returned and she is having discomfort in her epigastric/diaphragm area. Her nurse administered pain medication. I told her I would return once shewas more comfortable. Her appetite is poor, no BM) Discussed: Encouraged QID walks, up in chair for meals, IS/CDB exercises frequently, Q 15-20 minutes while awake. She is able to pull 500-750cc's. The importance of adequate caloric and protein intake discussed. Stressed the importance of adequate pain control and sleep so patient is able to complete post operative expectations for an optimal surgical outcome. She ambulated 3-4 times yesterday and twice today. Her nurse says she is up moving well. Encouraged patient to self initiate requests for walks. Encouraged two to three more walks before bedtime. Reinforced surgical wound precautions for activity. Will continue to follow for activity and education. Risk Factor Binder left at bedside while she was asleep. When I entered her room she was sitting upin the chair reading through material. Method: Verbal instruction Recipient: Patient Readiness to Learn: Ready Barriers to Learning: None Teaching Response: Verbalizes Understanding and Needs Follow-up NG ANALYST * Castillo Ceja OT - 06/08/2023 8:43 AM CST OT Initial Evaluation Discharge Recommendation: home with assistance Activity Recommendation for grocery worker: Independent 02/16/24 1101 Therapy Visit OT Received On 06/08/23 Reason for admission Pt had CABG x 3 performed on 06/05........Therapy orders: eval and treat.........Activity orders: ambulate patient; activity as tolerated; up in chair..........PMH: SVT, HTN, cardiomyopathy, aortic valve insufficiency, CAD, pseudoaneurysm. Previous Occupational Therapy Unknown Ordering Provider CAROL Silver Verified Two Patient Identifiers Yes Patient consents to therapy Yes Acute Inpatient OT Time Calculation OT Start Time 08 OT Stop Time 08 OT Time Calculation (min) 10 min Precautions Instructed on Precautions Yes;Verbalizes understanding Other tele, sternal precautions Subjective Subjective Pt supine in bed in room 602 and agreeable to therapy evaluation. Prior Function PLOF Comments Patient reports that she lives in a multilevel home w/ her who can provide 24/7 assistance if necessary. She is able to stay on the main level until fully recovered. There are 4steps w/ hand rails to enter the home. Her daughter also lives nearby and would be available to help if needed. The bathroom consists of a walk-in shower w/ grab bars and a chair; the toilet is raised. The patient was independent w/ ADLs and IADLs and did not utilize and AD for ambulation. They have a person come to clean the home every other week. Pain Pain No Objective Objective Pt supine in bed in room 602 Activity Tolerance Endurance Endurance does not limit participation in activity Vision - Basic Assessment Current Vision No visual deficits;Wears glasses Cognition Overall Cognitive Status WFL Orientation Level Oriented X4 Following Commands Follows all commands and directions without difficulty Comments Pt alert and oriented with intact safety awareness and cognition. Pt educated on sternal precautions and demonstrated independence with all Overall Extremity Assessment Upper Extremity AROM/MMT WFL bilateral UE within sternal precautions RUE Assessment RUE Assessment WFL LUE Assessment LUE Assessment WFL Hand Function Hand Dominance Right Gross Grasp Right;Left;Functional Coordination Functional Sensation Light Touch No apparent deficits ADL Grooming Assistance Independent UE Dressing Assistance Independent LE Dressing Assistance Independent Additional Comments [place] with all ADls Bed Mobility Supine to Sit Independent Sit to Supine Independent Other (Comment) [place] completing log rolling and maintaining sternal precautions Functional Transfers Sit to Stand Independent Bed to Chair Independent Balance Sitting - Static Independent Sitting - Dynamic Independent Standing - Static Independent Standing - Dynamic Independent Other (Comment) independence no LOB no devices used Proprioception Proprioception No apparent deficits Assessment Occupational Profile and History Complexity High (Extensive) Performance Deficit Level Low (1-3 deficits) Clinical Decision Making Low (no modifications) Complexity Level of Evaluation Low Prognosis Good Discharge Recommendation OT Recommendation Home with assistance;No skilled OT No Skilled OT No acute OT goals identified Plan Progress Discontinue OT OT - Next Appointment 06/08/23 If this is the last treatment note, it will serve as the discharge summary Yes End of Session End of Session Safety Call light within reach;Nursing aware of session;Transfer status education Assessment: Kendy Salcido is a 77-year-old female who is s/p CABG. 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 Pt currently demonstrating independence and intact safety awareness with all ADLs and functional transfers. OT will sign off at this time as Pt demonstrating PLOF with no acute skilled OT needs. Education: Primary Learners Name: Kendy Salcido Primary Language of learner: Estonian Patient educated on precautions exercises transfers ADLs balance bed mobility equipment therapy plan gait safety. Education was completed one to one verbal this date. Preference of learning new concepts one to one verbal Barriers to education this date were none. Response to education this date verbalized understanding verbalized recall. NG ANALYST * Tucker Rojas, PT STUDENT - 06/08/2023 8:33 AM CST PT Initial Evaluation Discharge Recommendation: home with assistance No skilled P/T DME equipment recommendation: none Activity Recommendation for grocery worker: Up with independence this session; future per nursing staff 06/08/23 1100 Therapy Visit Ordering Provider CAROL Silver PT Evaluation Completed on 06/08/23 Subjective Patient in room 602. Patient seated at EOB with no alarm upon arrival and was agreeable to therapy evaluation. Reason for admission Pt had CABG x 3 performed on 06/05........Therapy orders: eval and treat.........Activity orders: ambulate patient; activity as tolerated; up in chair..........PMH: SVT, HTN, cardiomyopathy, aortic valve insufficiency, CAD, pseudoaneurysm. Verified Two Patient Identifiers Yes Patient consents to therapy Yes Acute Inpatient PT Time Calculation PT Start Time 0833 PT Stop Time 0843 PT Time Calculation (min) 10 min Precautions Other tele. sternal Prior Function PLOF Comments Patient reports that she lives in a multilevel home w/ her who can provide 24/7 assistance if necessary. She is able to stay on the main level until fully recovered. There are 4steps w/ hand rails to enter the home. Her daughter also lives nearby and would be available to help if needed. The bathroom consists of a walk-in shower w/ grab bars and a chair; the toilet is raised. The patient was independent w/ ADLs and IADLs and did not utilize and AD for ambulation. They have a person come to clean the home every other week. Pain Pain No Activity Tolerance Endurance Endurance does not limit participation in activity Activity Tolerance Comments Patient participated in therapy with no signs of weakness, unsteadiness, or SOB. Vision - Basic Assessment Current Vision No visual deficits Cognition Overall Cognitive Status WFL Arousal/Alertness Appropriate responses to stimuli Attention Span Appears intact Memory Appears intact Orientation Level Oriented X4 Following Commands Follows all commands and directions without difficulty Safety Judgment Good awareness of safety precautions Awareness of Errors Good awareness of errors made Deficits Fully aware of deficits Motor Planning Appears intact Perseveration Not present Initiation Appears intact Sensation Light Touch No apparent deficits Proprioception Proprioception No apparent deficits Overall Extremity Assessment Lower Extremity Medardo LE strength and ROM is WFL Bed Mobility Rolling Independent Supine to Sit Independent Other (Comment) Patient educated on appropriate bed mobility while adhering to sternal precautions.Patient demonstrated and was independent. TRANSFERS Sit to Stand Independent Other (Comment) Patient demonstrated sit to stand while crossing arms to adhere to sternal precautions Gait Gait Assistance Independent Assistive Device None Distance Ambulated (ft) 600 ft Other (Comment) Patient ambulated 600' w/ independence; no signs of LOB, SOB, or significant gait deviations Stairs Stair Management Assistance Modified independence Stair Management Technique One rail R;Alternating pattern Number of Stairs 5 Other (Comment) Patient ascended and descended 5 stairs w/ unilateral UE support and alternating pattern; no signs of LOB or weakness. Balance Sitting - Static Independent Sitting - Dynamic Independent Standing - Static Independent Standing - Dynamic Independent Other (Comment) No overt LOB this session Assessment Personal Factors/Comorbidities Impacting Care 1-2 personal factors/comorbidities Examination of Body Systems Low (1-2 Elements) Objectives of Body Systems (No new deficits) Clinical Presentation of Patient Stable uncomplicated Complexity Level of Evaluation Low Prognosis Good PT Assess/Eval Other (Comment) Patient is a 77 year old female admitted for CABG x 3 procedure. Patient lives at home w/ her who can be w/ her 13/11 if necessary. She was completely indpendentwith all ADLs/IADLs and did not utilize an AD prior to hospitalization. Today, the patient demonstrated independence w/ bed mobility, transfers, and ambulating 600'; these tasks were performed w/out L OB and she adhered to sternal precautions. Pt also ascended and descended 5 stairs w/ unilateral UEsupport and no signs of weakness or LOB. Based on the patients current functional status and support at home, it is recommended that she be discharged home w/ assistance. Discharge Recommendation PT Recommendation Home with assistance;No skilled PT No Skilled PT No acute PT goals identified Plan Progress Discontinue PT PT Frequency One time visit PT - Next Appointment 06/08/23 If this is the last treatment note,it will serve as the discharge summary Yes End of Session End of Session Safety Call light within reach;Nursing aware of session;Transfer status education Education: Primary Learners Name: Kendy Salcido Primary Language of learner: Estonian Patient was educated on precautions transfers ADLs bed mobility gait safety stair training. Education was completed verbal demonstration this date. Preference of learning new concepts verbal demonstration Barriers to education this date were none. Response to education this date verbalized understanding. Cosigned by Jessie Lai, PT at 06/08/2023 2:23 PM CODING ANALYST NG ANALYST NG ANALYST * CAROL Mitchell - 06/08/2023 7:52 AM CST Daily Cardiothoracic Surgery Progress Note ID: Kendy Salcido is a 77-year-old female : 1945 DAVIN ESTRADA MD OPERATIVE PROCEDURE: CABG x 3 SVG to OM1, RICHTER to LAD, RUSSEL to RCA, #40 Atricure clip Findings: CAD, poor veins POSTOPERATIVE DAY: 2 SURGEON: Dr. Ahmet Levi HPI: Kendy Salcido is a 77 year old patient of who has been referred to me for considerationof coronary artery bypass grafting. She has a past medical history of ovarian cancer diagnosed in her 40s without recurrence and hypertension She had a recent admission to the hospital (03/2023) due to palpitations. At the time of admission, she was noted to have paroxysmal supraventricular tachycardia and is set to undergo ablation in June of 2023. Echocardiogram during her hospitalization demonstrated an EF of 30-35% with [id number] aortic insufficiency. She was started on guideline directed medical therapy for cardiomyopathy including metoprolol succinate and Entresto. She was unable to advance both medications as she became lightheaded and dizzy and is now only taking Entresto once daily. She underwent left heart catheterization on May 21, 2023 which demonstrated normal left main, lad 80% proximal stenosis, D1 90% stenosis, OM1 70 and 80% stenosis, RCA calcified 70 and 80% mid stenosis. Regarding her symptoms, she endorses worsening shortness of breath denies chest pain, PND, orthopnea, syncope, or presyncope. SUBJECTIVE Patient seen and examined this a.m. She was sitting in the bed. She denied chest pain or shortness of breath. [place] her pain was well-controlled. Pulls 650 on IS. Happy to have CT removed. PLAN: CT ASSESSMENT Coronary artery disease with reduced left ventricular function EF 30 to 35% status post coronary artery bypass grafting: Hemodynamically stable. Sinus rhythm. Systolic BP 120-140. On cleviprex, beta akiko resumed. Restart Aspirin 81 mg daily. Restart statin - . Restart Beta-akiko - Metoprolol tartrate 25mg BID - with hold parameters and titrate up as tolerated. Wean cleviprex D/C chest tubes 06/07 Will leave pacing wires. Cardiac rehab. PT and OT to follow as well to assist with ambulation. Postoperative atelectasis: Extubated uneventfully. On room air satting 96% Pulmonary toilet C&DB IS wean oxygen. EZPAP with nebs as needed. Recheck chest x-ray in the morning. Pulls 650 on IS Postoperative expected acute blood loss anemia: Preoperative hemoglobin/hematocrit 13.1/40.3-> 10.9/33.9 Will continue to monitor. Recheck CBC in the morning. Postoperative hyperglycemia: Not diabetic. Preoperative hemoglobin A1C was 5.3 Will DC insulin drip and convert to sliding scale insulin with Accuchecks AC &HS. Postoperative hypervolemia: Preoperative weight 59.9 Today's weight 61.4 kg Diurese with Lasix. Maintain negative fluid balance. Daily weights. Postoperative pain control and bowel regimen: Senna, oxycodone, lidocaine patches lidocaine MiraLAX daily. DVT prophylaxis: MOMO hose. Subcu heparin. PPI prophylaxis: Pepcid. OBJECTIVE Intake/Output last 3 shifts: I/O last 3 completed shifts: In: 400 [P.O.:400] Out: 470 [Urine:450; Chest Tube:20] Preoperative Weight: Today's Weight: Last 2 Recorded Weights 06/07/23 0500 06/08/23 0500 Weight: 61.2 kg (134 lb 14.7 oz) 61.4 kg (135 lb 5.8 oz) Vital signs in the last 24 hours: Temp: [97.7 ??F (36.5 ??C)-98.4 ??F (36.9 ??C)] 98.2 ??F (36.8 ??C) Pulse: [73-82] 77 Resp: [18] 18 BP: (113-147)/(46-67) 147/63 Physical Exam: Constitutional: She is oriented to person, place, and time. She appears well- developed and well-nourished. No distress. HENT: Nose: Nasal mucosa is pink. Mouth/Throat: Oropharynx is clear and moist and mucous membranes are normal. No oropharyngeal exudate. Neck: Neck supple. No JVD present. Cardiovascular: Normal rate, regular rhythm, S1 normal, S2 normal. PMI is normal size and not displaced. No edema with intact distal pulses. Pulmonary/Chest: Lungs are clear to auscultation except diminished bases. Effort normal and breath sounds normal. No respiratory distress. Oxygen saturation 96 on RA. Abdominal: Soft, and nontender with positive bowel sounds. She exhibits no abdominal bruit and no mass. There is no hepatosplenomegaly. Musculoskeletal: Normal range of motion. Neurological: She is alert and oriented to person, place, and time. Skin: Skin is warm and dry. Psychiatric: She has a normal mood and affect. Her behavior is normal. Thought content normal. Incision: CDI, Macho wrap removed BLE. Labs and Cultures: Lab Results Component Value Date NA 137 06/08/2023 K 3.7 06/08/2023 CL 101 06/08/2023 CO2 29.6 06/08/2023 AGAP 6.4 06/08/2023 BUN 24 (H) 06/08/2023 CR 0.77 06/08/2023 GLU 91 06/08/2023 CA 8.5 06/08/2023 Lab Results Component Value Date WBC 8.90 06/08/2023 HGB 10.9 (L) 06/08/2023 PLT 132 (L) 06/08/2023 Lab Results Component Value Date CHOL 231 05/21/2023 TRI 53 05/21/2023 HDL 74 05/21/2023 TP 7.1 06/04/2023 ALB 3.7 06/04/2023 ALT 22 06/04/2023 HGBA1C 5.3 06/04/2023 TSH 3.820 (H) 04/28/2023 Lab Results Component Value Date INR 1.1 06/08/2023 INR 1.1 06/07/2023 INR 1.1 06/06/2023 INR 1.0 06/04/2023 PROTIME 12.1 06/08/2023 PROTIME 12.5 06/07/2023 PROTIME 12.8 (H) 06/06/2023 PROTIME 11.5 06/04/2023 Imaging: Recent imaging studies have been reviewed Review of ECG and Tele: NSR Signed CAROL MITCHELL 06/08/2023 NG ANALYST * Junior Streeter MD - 06/07/2023 1:27 PM CST Images from the original note were not included. Cardiology Daily Progress Note ID: Kendy Salcido is a 77-year-old female : 1945 LOS: 2 SUBJECTIVE Interval History Last 24 hours: The patient specifically denies CP/SOB. ROS: Neg Medications: Scheduled Meds: aspirin 81 mg Oral Daily atorvastatin 80 mg Oral Daily docusate sodium 100 mg Oral Daily famotidine 20 mg Intravenous Q24H Or famotidine 20 mg Oral Q24H insulin lispro 0-8 Units Subcutaneous 4x Daily AC and at bedtime ipratropium-albuterol 3 mL Nebulization Q4H lidocaine 1 patch Transdermal Q24H metoprolol tartrate 25 mg Oral BID normal saline 3-10 mL Intravenous Q8H polyethylene glycol 17 g Oral Daily senna-docusate 1 tablet Oral BID vitamin B-12 500 mcg Oral Daily vitamin C 1,000 mg Oral Daily Continuous Infusions: sodium chloride PRN Meds: acetaminophen OR acetaminophen OR [DISCONTINUED] acetaminophen, benzocaine 20%, bisacodyl, bisacodyl EC, fentaNYL, fentaNYL, magnesium sulfate, hxpuzzkrj-auyumtlk-ubbooslmuyf, metoclopramide, midazolam, normal saline, ondansetron, oxyCODONE-acetaminophen, sodium chloride (PF), [CAN CELED] Arterial line to monitor AND sodium chloride, traMADol, traMADol OBJECTIVE Vital signs in the last 24 hours: Temp: [95 ??F (35 ??C)-98.1 ??F (36.7 ??C)] 97.9 ??F (36.6 ??C) Pulse: [72-94] 82 Resp: [14-20] 18 BP: (118-144)/(58-82) 134/65 Arterial Line BP 1: (127-151)/(47-64) 133/64 Intake/Output last 3 shifts: I/O last 3 completed shifts: In: 924 [P.O.:480; I.V.:444] Out: 1604 [Urine:1384; Chest Tube:220] Intake/Output this shift: I/O this shift: In: - Out: 170 [Urine:150; Chest Tube:20] Today's Weight: Last Recorded Weight 06/07/23 0500 Weight: 61.2 kg (134 lb 14.7 oz) Yesterday's Weight: Wt Readings from Last 1 Encounters: 06/07/23 61.2 kg (134 lb 14.7 oz) Weight change in the last 24 hours: -1.5 kg (-3 lb 4.9 oz) Examination: GEN: Appears stable and in NAD. HEENT: No JVD or carotid bruits heard. LUNG: Clear to auscultation. HEART: Normal S1, Normal S2. No murmurs gallops or rubs. GI: Bowel sounds present, nontender, nondistended and no organomegaly. EXT: No edema. NEURO: Alert and Oriented. Nonfocal exam. PSYCH: Normal affect. LYMPHATIC: No adenopathy noted. SKIN: No rashes seen. Lines/Drains/Airway: peripheral IV Labs and Cultures: All labs have been reviewed. Pertinent labs include SODIUM S/P/B Date Value Ref Range Status 06/07/2023 140 136 - 145 MMOL/L Final 06/06/2023 143 136 - 145 MMOL/L Final 06/04/2023 133 (L) 136 - 145 MMOL/L Final POTASSIUM S/P/B Date Value Ref Range Status 06/07/2023 4.1 3.5 - 5.1 MMOL/L Final 06/06/2023 4.1 3.5 - 5.1 MMOL/L Final 06/04/2023 4.0 3.5 - 5.1 MMOL/L Final CREATININE S/P/B Date Value Ref Range Status 06/07/2023 0.84 0.55 - 1.02 MG/DL Final 06/06/2023 0.80 0.55 - 1.02 MG/DL Final 06/04/2023 0.88 0.55 - 1.02 MG/DL Final Imaging: Recent imaging studies have been reviewed. ASSESSMENT Patient is out of the intensive care unit and doing well. She is ambulating without any difficulty.Blood pressure is much better today. PLAN CAD: Status post bypass surgery as described above. Recovering as expected. CHF: HFrEF with 30 to 35% ejection fraction presumably due to ischemic cardiomyopathy. Currently onbeta-akiko. Will add GDMT as tolerated. Hypertension: Off Cleviprex with good BP control. On beta-akiko. Signed Junior Streeter MD NG ANALYST * CAROL Mitchell - 06/07/2023 9:55 AM CST Daily Cardiothoracic Surgery Progress Note ID: Kendy Salcido is a 77-year-old female : 1945 DAVIN ESTRADA MD OPERATIVE PROCEDURE: CABG x 3 SVG to OM1, RICHTER to LAD, RUSSEL to RCA, #40 Atricure clip Findings: CAD, poor veins POSTOPERATIVE DAY: 2 SURGEON: Dr. Ahmet Levi HPI: Kendy Salcido is a 77 year old patient of who has been referred to me for considerationof coronary artery bypass grafting. She has a past medical history of ovarian cancer diagnosed in her 40s without recurrence and hypertension She had a recent admission to the hospital (03/2023) due to palpitations. At the time of admission, she was noted to have paroxysmal supraventricular tachycardia and is set to undergo ablation in June of 2023. Echocardiogram during her hospitalization demonstrated an EF of 30-35% with rufd-yl-hzlzxqam aortic insufficiency. She was started on guideline directed medical therapy for cardiomyopathy including metoprolol succinate and Entresto. She was unable to advance both medications as she became lightheaded and dizzy and is now only taking Entresto once daily. She underwent left heart catheterization on May 21, 2023 which demonstrated normal left main, lad 80% proximal stenosis, D1 90% stenosis, OM1 70 and 80% stenosis, RCA calcified 70 and 80% mid stenosis. Regarding her symptoms, she endorses worsening shortness of breath denies chest pain, PND, orthopnea, syncope, or presyncope. SUBJECTIVE Patient seen and examined this a.m. She was sitting in the bed. She denied chest pain or shortness of breath. [place] her pain was well-controlled. Pulls 650 on IS. Happy to have CT removed. PLAN: CT ASSESSMENT Coronary artery disease with reduced left ventricular function EF 30 to 35% status post coronary artery bypass grafting: Hemodynamically stable. Sinus rhythm. Systolic BP 120-140. On cleviprex, beta akiko resumed. Restart Aspirin 81 mg daily. Restart statin - . Restart Beta-akiko - Metoprolol tartrate 25mg BID - with hold parameters and titrate up as tolerated. Wean cleviprex Will leave chest tubes today due to moderate chest tube outputs. Will leave pacing wires. Cardiac rehab. PT and OT to follow as well to assist with ambulation. Postoperative atelectasis: Extubated uneventfully. On room air satting 96% Pulmonary toilet C&DB IS wean oxygen. EZPAP with nebs as needed. Recheck chest x-ray in the morning. Pulls 650 on IS Postoperative expected acute blood loss anemia: Preoperative hemoglobin/hematocrit 13.1/40.3-> 12/36.5 POD 2. Will continue to monitor. Recheck CBC in the morning. Postoperative hyperglycemia: Not diabetic. Preoperative hemoglobin A1C was 5.3 Will DC insulin drip and convert to sliding scale insulin with Accuchecks AC &HS. Postoperative hypervolemia: Preoperative weight 59.9 Today's weight 61.2 kg Diurese with Lasix. Maintain negative fluid balance. Daily weights. Postoperative pain control and bowel regimen: Senna, oxycodone, lidocaine patches lidocaine MiraLAX daily. DVT prophylaxis: MOMO hose. Subcu heparin. PPI prophylaxis: Pepcid. OBJECTIVE Intake/Output last 3 shifts: I/O last 3 completed shifts: In: 924 [P.O.:480; I.V.:444] Out: 1604 [Urine:1384; Chest Tube:220] Preoperative Weight: Today's Weight: Last 2 Recorded Weights 06/06/23 0600 06/07/23 0500 Weight: 59.7 kg (131 lb 9.8 oz) 61.2 kg (134 lb 14.7 oz) Vital signs in the last 24 hours: Temp: [95 ??F (35 ??C)-99.1 ??F (37.3 ??C)] 96.8 ??F (36 ??C) Pulse: [72-94] 94 Resp: [14-20] 20 BP: (118-144)/(58-82) 120/72 Arterial Line BP 1: (127-151)/(47-64) 133/64 Physical Exam: Constitutional: She is oriented to person, place, and time. She appears well- developed and well-nourished. No distress. HENT: Nose: Nasal mucosa is pink. Mouth/Throat: Oropharynx is clear and moist and mucous membranes are normal. No oropharyngeal exudate. Neck: Neck supple. No JVD present. Cardiovascular: Normal rate, regular rhythm, S1 normal, S2 normal. PMI is normal size and not displaced. No edema with intact distal pulses. Pulmonary/Chest: Lungs are clear to auscultation except diminished bases. Effort normal and breath sounds normal. No respiratory distress. Oxygen saturation 96 on RA. Abdominal: Soft, and nontender with positive bowel sounds. She exhibits no abdominal bruit and no mass. There is no hepatosplenomegaly. Musculoskeletal: Normal range of motion. Neurological: She is alert and oriented to person, place, and time. Skin: Skin is warm and dry. Psychiatric: She has a normal mood and affect. Her behavior is normal. Thought content normal. Incision: CDI, Macho wrap removed BLE. Labs and Cultures: Lab Results Component Value Date NA 140 06/07/2023 K 4.1 06/07/2023 CL 108 (H) 06/07/2023 CO2 27.4 06/07/2023 AGAP 4.6 (L) 06/07/2023 BUN 21 (H) 06/07/2023 CR 0.84 06/07/2023 GLU 116 (H) 06/07/2023 CA 8.5 06/07/2023 Lab Results Component Value Date WBC 10.75 06/07/2023 HGB 12.0 06/07/2023 PLT 122 (L) 06/07/2023 Lab Results Component Value Date CHOL 231 05/21/2023 TRI 53 05/21/2023 HDL 74 05/21/2023 TP 7.1 06/04/2023 ALB 3.7 06/04/2023 ALT 22 06/04/2023 HGBA1C 5.3 06/04/2023 TSH 3.820 (H) 04/28/2023 Lab Results Component Value Date INR 1.1 06/07/2023 INR 1.1 06/06/2023 INR 1.0 06/04/2023 PROTIME 12.5 06/07/2023 PROTIME 12.8 (H) 06/06/2023 PROTIME 11.5 06/04/2023 Imaging: Recent imaging studies have been reviewed Review of ECG and Tele: NSR Signed CAROL MITCHELL 06/07/2023 NG ANALYST * Ahmet Berumen RN - 06/06/2023 3:20 PM CST Patient has walked the halls once this shift. Up to the chair until early afternoon. Cleviprex gtt initiated and continues at 3 mg/hr. present at bedside and attentive. NG ANALYST * Shanel Haynes RN - 06/06/2023 1:01 PM CST 06/06/23 1301 Referral Data Source of Information Patient;Chart review Patient Information Primary Caregiver Self Current living Situation Spouse/significant other Type of Residence Private residence Support System Spouse/Significant Other Recent Hospitalization Recent Hospitalization within 30 days No Baseline ADL's Functional Status Independent Behavior Oriented;Cooperative Communication Talks;Understands speaking;Understands [place] Psychosocial Need Indicator Mental health concerns No Diagnosis/prognosis resulting in poor adjustment or coping with illness No Diagnosis/prognosis with anticipated outcome of major lifestyle changes, including change in halfway living environment No Complex Family concerns No Abuse and/or neglect of elder, adult or child No Psychiatric and/or substance abuse issues affecting current hospitalization No Homelessness with lack of safe discharge environment No Need for guardianship petition No Involuntary patient No DC screening tool This is a screening tool it does not take the place of a physical or occupational therapy evaluation. The screening is to screen the patient for what services and destination would be beneficial for patient for next level of care Conversation with the patient/family Will the patient be returning to prior living situation with no new identified needs? Yes Based on the screening the DC plan for consideration is: Patient expects to be discharged to: Home or Self care no new needs Adequate Resources Available Adequate Resources Yes Chart reviewed. Met with pt at bedside. Pt is independent at baseline. Lives at home with her .. No active DME or home services in place. Anticipated discharge to home pending pt progress. Care Coordination Team will provide discharge planning as needed, and will re- evaluate based on recommendations, treatment course, and the patient's expressed preferences. Brandon minaya [place] NG ANALYST * CAROL Mitchell - 06/06/2023 9:58 AM CST Daily Cardiothoracic Surgery Progress Note ID: Kendy Salcido is a 77-year-old female : 1945 DAVIN ESTRADA MD OPERATIVE PROCEDURE: CABG x 3 SVG to OM1, RICHTER to LAD, RUSSEL to RCA, #40 Atricure clip Findings: CAD, poor veins POSTOPERATIVE DAY: 1 SURGEON: Dr. Ahmet Levi HPI: Kendy Salcido is a 77 year old patient of who has been referred to me for considerationof coronary artery bypass grafting. She has a past medical history of ovarian cancer diagnosed in her 40s without recurrence and hypertension She had a recent admission to the hospital (03/2023) due to palpitations. At the time of admission, she was noted to have paroxysmal supraventricular tachycardia and is set to undergo ablation in June of 2023. Echocardiogram during her hospitalization demonstrated an EF of 30-35% with yahr-id-wrzxetwr aortic insufficiency. She was started on guideline directed medical therapy for cardiomyopathy including metoprolol succinate and Entresto. She was unable to advance both medications as she became lightheaded and dizzy and is now only taking Entresto once daily. She underwent left heart catheterization on May 21, 2023 which demonstrated normal left main, lad 80% proximal stenosis, D1 90% stenosis, OM1 70 and 80% stenosis, RCA calcified 70 and 80% mid stenosis. Regarding her symptoms, she endorses worsening shortness of breath denies chest pain, PND, orthopnea, syncope, or presyncope. SUBJECTIVE Patient seen and examined this a.m. She was sitting in the chair. She denied chest pain or shortness of breath. [place] her pain was well-controlled. Pulls 650 on IS. PLAN: CT ASSESSMENT Coronary artery disease with reduced left ventricular function EF 30 to 35% status post coronary artery bypass grafting: Hemodynamically stable. Sinus rhythm. Systolic BP 120-140. On cleviprex, beta akiko resumed. Restart Aspirin 81 mg daily. Restart statin - . Restart Beta-akiko - Metoprolol tartrate 25mg BID - with hold parameters and titrate up as tolerated. Wean cleviprex Will leave chest tubes today due to moderate chest tube outputs. Will leave pacing wires. Cardiac rehab. PT and OT to follow as well to assist with ambulation. Postoperative atelectasis: Extubated uneventfully. On room air satting 96% Pulmonary toilet C&DB IS wean oxygen. EZPAP with nebs as needed. Recheck chest x-ray in the morning. Pulls 650 on IS Postoperative expected acute blood loss anemia: Preoperative hemoglobin/hematocrit 13.1/40.3-> 13/38 POD 1. Will continue to monitor. Recheck CBC in the morning. Postoperative hyperglycemia: Not diabetic. Preoperative hemoglobin A1C was 5.3 Will DC insulin drip and convert to sliding scale insulin with Accuchecks AC &HS. Postoperative hypervolemia: Preoperative weight 59.9 Today's weight 59.7 Diurese with Lasix. Maintain negative fluid balance. Daily weights. Postoperative pain control and bowel regimen: Senna, oxycodone, lidocaine patches lidocaine lidocaine MiraLAX daily. DVT prophylaxis: MOMO hose. Subcu heparin. PPI prophylaxis: Pepcid. OBJECTIVE Intake/Output last 3 shifts: I/O last 3 completed shifts: In: 3684 [I.V.:2468.7; Other:1065; IV Piggyback:150.3] Out: 2665 [Urine:2115; Chest Tube:550] Preoperative Weight: Today's Weight: Last 2 Recorded Weights 06/05/23 0514 06/06/23 0600 Weight: 61.2 kg (134 lb 14.7 oz) 59.7 kg (131 lb 9.8 oz) Vital signs in the last 24 hours: Temp: [95.9 ??F (35.5 ??C)-100.2 ??F (37.9 ??C)] 99.1 ??F (37.3 ??C) Pulse: [77-86] 81 Resp: [9-20] 17 BP: (90-174)/(56-96) 174/84 Arterial Line BP 1: (98-166)/(46-95) 152/60 Physical Exam: Constitutional: She is oriented to person, place, and time. She appears well- developed and well-nourished. No distress. HENT: Nose: Nasal mucosa is pink. Mouth/Throat: Oropharynx is clear and moist and mucous membranes are normal. No oropharyngeal exudate. Neck: Neck supple. No JVD present. Cardiovascular: Normal rate, regular rhythm, S1 normal, S2 normal. PMI is normal size and not displaced. No edema with intact distal pulses. Pulmonary/Chest: Lungs are clear to auscultation except diminished bases. Effort normal and breath sounds normal. No respiratory distress. Oxygen saturation 96 on RA. Abdominal: Soft, and nontender with positive bowel sounds. She exhibits no abdominal bruit and no mass. There is no hepatosplenomegaly. Musculoskeletal: Normal range of motion. Neurological: She is alert and oriented to person, place, and time. Skin: Skin is warm and dry. Psychiatric: She has a normal mood and affect. Her behavior is normal. Thought content normal. Incision: CDI, Macho wrap removed BLE. Labs and Cultures: Lab Results Component Value Date NA 143 06/06/2023 K 4.1 06/06/2023 CL 114 (H) 06/06/2023 CO2 23.9 06/06/2023 AGAP 5.1 06/06/2023 BUN 17 06/06/2023 CR 0.80 06/06/2023 GLU 134 (H) 06/06/2023 CA 8.4 (L) 06/06/2023 Lab Results Component Value Date WBC 10.14 06/06/2023 HGB 13.0 06/06/2023 PLT 129 (L) 06/06/2023 Lab Results Component Value Date CHOL 231 05/21/2023 TRI 53 05/21/2023 HDL 74 05/21/2023 TP 7.1 06/04/2023 ALB 3.7 06/04/2023 ALT 22 06/04/2023 HGBA1C 5.3 06/04/2023 TSH 3.820 (H) 04/28/2023 Lab Results Component Value Date INR 1.1 06/06/2023 INR 1.0 06/04/2023 PROTIME 12.8 (H) 06/06/2023 PROTIME 11.5 06/04/2023 Imaging: Recent imaging studies have been reviewed Review of ECG and Tele: NSR Signed CAROL MITCHELL 06/06/2023 Cosigned by Ahmet Levi MD at 06/06/2023 4:32 PM CODING ANALYST NG ANALYST NG ANALYST * Shanel Haynes RN - 06/05/2023 2:35 PM CST Pt newly to the icu from surgery. Intubated. No family in room at this time. NG ANALYST * Madhu Hickman - 06/05/2023 6:47 AM CST Presurgical visit. Provided emotional/spiritual support to patient and family member. Prayed with patient and family member. Rev. Madhu Hickman M.Div. [employer] NG ANALYST documented in this encounter Consult Notes * Cintia Garcia MD - 06/11/2023 9:15 AM CST Images from the original note were not included. Cardiac Electrophysiology Consult Note PATIENT NAME: Kendy Salcido : 1945 REFERRING PROVIDER: No ref. provider found PCP: DAVIN ESTRADA MD REASON FOR CONSULTATION A-fib with RVR CHIEF COMPLAINT Palpitations HISTORY OF PRESENT ILLNESS Very pleasant 77-year-old lady with PMH significant for SVT and newly diagnosed cardiomyopathy [id number]% and CAD status post CABG PAST CARDIAC HISTORY & TESTING EC06/08/2023: A-fib with RVR TELEMETRY: Reviewed, episodes of A-fib with RVR noted. Patient is back to sinus rhythm today. Episodes of NSVT as well noted CARDIAC STRUCTURE & FUNCTION EVALUATION: MARIA ANTONIA 06/05/2023: SUMMARY: ++++++++++++++++++++++++++++++++++++ Pre-bypass Sinus rhythm LV size normal, systolic [...] estimated EF now 50-55% Otherwise unchanged from previous. No pericardial effusion after chest closure ISCHEMIA EVALUATION: Left heart catheterization and coronary [...] to right coronary artery, #40 atricure clip.. PREVIOUS EP HISTORY: SVT with heart rate~200 bpm. Paroxysmal atrial fibrillation noted prior to CABG and after CABG PAST HISTORY Past Medical History: Diagnosis Date Essential (primary) hypertension Ovarian cancer (HHS/HCC) (CMS/HCC) s/p chemo and resection SVT (supraventricular tachycardia) Past Surgical History: Procedure Laterality Date LEFT HEART CATH,PERCUTANEOUS 05/21/2023 TOTAL ABDOM HYSTERECTOMY Social History Tobacco Use Smoking status: Never Passive exposure: Never Smokeless tobacco: Never Substance Use Topics Alcohol use: Not Currently Comment: occasional wine Drug use: Never Family History Problem Relation Name Age of Onset Alzheimer's disease Mother CABG Father MEDICATIONS Scheduled Meds: amiodarone 400 mg Oral BID aspirin 81 mg Oral Daily atorvastatin 80 mg Oral Daily calcium citrate 1,900 mg Oral Daily docusate sodium 100 mg Oral Daily famotidine 20 mg Intravenous Q24H Or famotidine 20 mg Oral Q24H furosemide 20 mg Intravenous BID hydrALAZINE 25 mg Oral 3 times per day insulin lispro 0-6 Units Subcutaneous 4x Daily WC lidocaine 1 patch Transdermal Q24H magnesium oxide 400 mg Oral Daily metoprolol succinate ER 25 mg Oral BID normal saline 3-10 mL Intravenous Q8H polyethylene glycol 17 g Oral Daily potassium chloride 20 mEq Oral Daily sacubitril-valsartan 1 tablet Oral BID senna-docusate 1 tablet Oral BID spironolactone 12.5 mg Oral Daily vitamin B-12 500 mcg Oral Daily vitamin C 1,000 mg Oral Daily Vitamin D3 50 mcg Oral Daily vitamin E 400 Units Oral Daily warfarin 5 mg Oral Daily (warfarin) Continuous Infusions: sodium chloride PRN Meds: acetaminophen OR acetaminophen OR [DISCONTINUED] acetaminophen, bisacodyl, bisacodyl EC, fentaNYL, fentaNYL, magnesium sulfate, kjoidkzcv-zapfhtut-ojklnmcwmem, metoclopramide, normal saline, ondansetron, oxyCODONE-acetaminophen, sodium chloride (PF), [CANCELED] Arterial line to [facility] AND sodium chloride, traMADol, traMADol Meds Prior to Admission: Medications Prior to Admission Medication Sig Dispense Refill Acetaminophen (TYLENOL ARTHRITIS PAIN OR) Take 2 tablets by mouth as needed (nightly for arthritis pain). aspirin EC (ECOTRIN) 81 MG tablet Take 1 tablet (81 mg total) by mouth daily. bisacodyl EC (DULCOLAX) 5 MG Tab EC tablet Take 2 tablets (10 mg total) by mouth daily as needed (.). at bedtime. Calcium Citrate 250 MG Tab Take 2 tablets by mouth daily. melatonin 10 MG tablet Take 1 tablet (10 mg total) by mouth nightly as needed for Sleep. metoprolol succinate ER (TOPROL-XL) 50 MG 24 hr tablet Take 0.5 tablets (25 mg total) by mouth 2 (two) times daily. 30 tablet 3 vitamin ( PLUS) 27-1 MG tablet Take 1 tablet by mouth daily. rosuvastatin (CRESTOR) 40 MG tablet Take 1 tablet (40 mg total) by mouth nightly at bedtime. 90 tablet 3 sacubitril-valsartan (ENTRESTO) 24-26 MG tablet Take 1 tablet by mouth 2 (two) times daily. 60 tablet 6 vitamin B-12 (CYANOCOBALAMIN) 500 MCG tablet Take 1 tablet (500 mcg total) by mouth daily. vitamin C (ASCORBIC ACID) 500 MG tablet Take 2 tablets (1,000 mg total) by mouth daily. Vitamin D3 (CHOLECALCIFEROL) 50 mcg tablet Take 1 tablet (50 mcg total) by mouth daily. vitamin E 180 MG (400 UNIT) capsule Take 1 capsule (400 Units total) by mouth daily. zolpidem (AMBIEN) 5 MG tablet Take 1 tablet (5 mg total) by mouth nightly as needed for Sleep. [DISCONTINUED] metoprolol succinate ER (TOPROL-XL) 25 MG 24 hr tablet Take 1 tablet (25 mg total) by mouth daily. 90 tablet 3 [DISCONTINUED] metoprolol succinate ER (TOPROL-XL) 25 MG 24 hr tablet Take 1 tablet (25 mg total) by mouth 2 (two) times daily. 30 tablet 4 ALLERGIES No Known Allergies PHYSICAL EXAMINATION Wt Readings from Last 3 Encounters: 06/11/23 61.2 kg (134 lb 14.7 oz) 05/28/23 62.2 kg (137 lb 3.2 oz) 05/21/23 60.9 kg (134 lb 4.2 oz) Filed Vitals: 06/10/23 1955 06/10/23 2337 06/11/2305 06/11/23 0752 BP: 135/88 102/57 119/52 107/45 Pulse: (!) 45 (!) 114 71 83 Resp: Temp: 98.4 ??F (36.9 ??C) 98.4 ??F (36.9 ??C) 98.4 ??F (36.9 ??C) 98.6 ??F (37 ??C) TempSrc: Oral Oral Oral Oral SpO2: 98% 92% 96% 95% Weight: 61.2 kg (134 lb 14.7 oz) Height: General Appearance: Alert, oriented, no acute distress, cooperative. Head: Normocephalic. No masses, lesions, tenderness or abnormalities Lungs: Lungs clear to auscultation. No wheezes or crackles. Heart: RRR. No murmurs, clicks, or gallops. PMI normal. No lifts, heaves, or thrills. Abdomen: Abdomen soft, non-tender. BS normal. No masses, organomegaly Extremities: Extremities normal. No deformities, edema, or skin discoloration Skin: Skin color, texture, turgor normal. No rashes or lesions Pulses: +2 and equal BL. LABORATORY RESULTS Recent Labs 06/09/23 0845 06/10/23 0525 06/11/23 0513 WBC 6.65 5.44 7.41 HGB 10.3* 10.2* 11.9* HCT 30.6* 30.8* 35.4* MCV 96.5 96.3 95.7 PLT 144* 162 211 RBC 3.17* 3.20* 3.70* Recent Labs 06/09/23 0845 06/10/23 0525 06/10/23 1736 06/11/23 0513 ALT -- -- 33 -- AST -- -- 43* -- CO2 30.2 29.8 -- 28.6 CL 99 97* -- 97* GLU 113* 100 -- 106 K 3.9 3.2* -- 3.7 NA 134* 133* -- 131* BUN 20* 14 -- 16 DIAGNOSIS CAD status post CABG Ischemic cardiomyopathy LVEF 30-35%. MARIA ANTONIA IntraOp showed improvement of LVEF post CABG PAF SVT RECOMMENDATIONS/PLAN PAF/SVT: Patient was on IV amiodarone overnight. Stop IV amiodarone and continue amiodarone with oral loading 400 twice daily X 2 weeks, and then 200 mg daily after Oral anticoagulation per cardiothoracic surgery. Patient is on warfarin and baby aspirin. Further management of oral anticoagulation per cardiothoracic surgery Continue goal-directed medical therapy for ischemic cardiomyopathy (Toprol, Entresto, spironolactone). Repeat TTE ordered as an outpatient Will follow-up as outpatient in 4 to 6 weeks for further management of atrial fibrillation and SVT Signed CINTIA GARCIA MD 06/11/2023 NG ANALYST NG ANALYST * Enrique Ambrosio Arturo, STAFF DEVELOPMENT NURSE - 06/06/2023 4:09 PM CST Images from the original note were not included. Cardiology Consult Note Patient Name: Kendy Salcido : 1945 PCP: DAVIN ESTRADA MD Primary Public Relations Writer: Dr. House; Dr. Streeter covering Reason for Consultation: CAD s/p CABG ASSESSMENT/PLAN: 1. Coronary artery disease status post CABG x 3 SVG to OM1, RICHTER to LAD, RUSSEL to RCA, #40 Atricure clip -On aspirin, atorvastatin. Metoprolol resumed today. Encouraged I-S and ambulation. Continue to monitor on telemetry. 2. Heart failure with reduced ejection fraction (LVEF 30 to 35%) -Transition metoprolol to tartrate to metoprolol succinate in the near future. Resume Entresto as able. Add SGLT2 and Aldactone as renal function and blood pressure allow. Diuresis per CT surgery. 3. 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 Back on beta-blockers. Continue telemetry monitoring. Noted plans for outpatient SVT ablation. 4. Hypertension -Cleviprex being weaned. Beta-akiko resumed today. 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 Patient originally presented in March 2023 with complaints of palpitations. She was found to have paroxysmal supraventricular tachycardia. Echocardiogram at that time demonstrated newly reduced LVEF of 30 to 35% with mild to moderate aortic insufficiency. She was started on metoprolol succinate and Entresto with recommendations for outpatient cardiology consultation for further evaluation and management of new LV systolic dysfunction. She was subsequently seen by Dr. [place] alonzo in outpatientcardiology clinic. She then underwent cardiac catheterization May 21, 2023 which demonstrated multivessel coronary artery disease including 80% proximal LAD, 90% D1, 7080% OM1 and 70 to 80% mid RCA. She was referred to cardiothoracic surgery for consideration of surgical vascularization. She presented yesterday and underwent successful CABG x 3 with SVG to OM1, RICHTER to LAD, RUSSEL to RCAand AtriCure clip. Cardiology consultation was requested to follow in the postoperative period. Patient was seen and examined resting comfortably in bed. She reports improving dyspnea. She endorses incisional chest discomfort which is under good control with current pain medications. Past Medical History: Diagnosis Date Essential (primary) hypertension Ovarian cancer (HHS/HCC) (CMS/HCC) s/p chemo and resection SVT (supraventricular tachycardia) Past Surgical History: Procedure Laterality Date LEFT HEART CATH,PERCUTANEOUS 05/21/2023 TOTAL ABDOM HYSTERECTOMY Medications Prior to Admission Medication Sig Dispense Refill Acetaminophen (TYLENOL ARTHRITIS PAIN OR) Take 2 tablets by mouth as needed (nightly for arthritis pain). aspirin EC (ECOTRIN) 81 MG tablet Take 1 tablet (81 mg total) by mouth daily. bisacodyl EC (DULCOLAX) 5 MG Tab EC tablet Take 2 tablets (10 mg total) by mouth daily as needed (.). at bedtime. Calcium Citrate 250 MG Tab Take 2 tablets by mouth daily. melatonin 10 MG tablet Take 1 tablet (10 mg total) by mouth nightly as needed for Sleep. metoprolol succinate ER (TOPROL-XL) 50 MG 24 hr tablet Take 0.5 tablets (25 mg total) by mouth 2 (two) times daily. 30 tablet 3 vitamin ( PLUS) 27-1 MG tablet Take 1 tablet by mouth daily. rosuvastatin (CRESTOR) 40 MG tablet Take 1 tablet (40 mg total) by mouth nightly at bedtime. 90 tablet 3 sacubitril-valsartan (ENTRESTO) 24-26 MG tablet Take 1 tablet by mouth 2 (two) times daily. 60 tablet 6 vitamin B-12 (CYANOCOBALAMIN) 500 MCG tablet Take 1 tablet (500 mcg total) by mouth daily. vitamin C (ASCORBIC ACID) 500 MG tablet Take 2 tablets (1,000 mg total) by mouth daily. Vitamin D3 (CHOLECALCIFEROL) 50 mcg tablet Take 1 tablet (50 mcg total) by mouth daily. vitamin E 180 MG (400 UNIT) capsule Take 1 capsule (400 Units total) by mouth daily. zolpidem (AMBIEN) 5 MG tablet Take 1 tablet (5 mg total) by mouth nightly as needed for Sleep. [DISCONTINUED] metoprolol succinate ER (TOPROL-XL) 25 MG 24 hr tablet Take 1 tablet (25 mg total) by mouth daily. 90 tablet 3 [DISCONTINUED] metoprolol succinate ER (TOPROL-XL) 25 MG 24 hr tablet Take 1 tablet (25 mg total) by mouth 2 (two) times daily. 30 tablet 4 No Known Allergies Social History Tobacco Use Smoking status: Never Passive exposure: Never Smokeless tobacco: Never Substance Use Topics Alcohol use: Not Currently Comment: occasional wine Family History Problem Relation Name Age of Onset Alzheimer's disease Mother CABG Father Review of Systems Constitutional: Negative for recent unintentional weight gain, recent unintentional weight loss andnew or significant fatigue. HENT: Negative for new or significant hearing loss. Eyes: Negative for blurred vision. Respiratory: Negative for cough and new or significant shortness of breath. Cardiovascular: See HPI. Gastrointestinal: Negative for nausea, vomiting, blood in stool and melena. Genitourinary: Negative for dysuria. Musculoskeletal: Negative for myalgias. Skin: Negative for rash. Neurological: Negative for dizziness and focal weakness. Endo/Heme/Allergies: Negative for new or significant bruising/bleeding. Psychiatric/Behavioral: Negative for nervous/anxious. Medications: Scheduled Meds: aspirin 81 mg Oral Daily atorvastatin 80 mg Oral Daily docusate sodium 100 mg Oral Daily famotidine 20 mg Intravenous Q24H Or famotidine 20 mg Oral Q24H insulin lispro 0-8 Units Subcutaneous 4x Daily AC and at bedtime ipratropium-albuterol 3 mL Nebulization Q4H lidocaine 1 patch Transdermal Q24H metoprolol tartrate 25 mg Oral BID normal saline 3-10 mL Intravenous Q8H polyethylene glycol 17 g Oral Daily senna-docusate 1 tablet Oral BID vitamin B-12 500 mcg Oral Daily vitamin C 1,000 mg Oral Daily Continuous Infusions: clevidipine 3 mg/hr (06/06/23 1318) sodium chloride sodium chloride PRN Meds: acetaminophen OR acetaminophen OR [DISCONTINUED] acetaminophen, benzocaine 20%, bisacodyl, bisacodyl EC, calcium chloride 1 g in sodium chloride 0.9 % 50 mL IVPB, fentaNYL, fentaNYL, magnesium sulfate, gtjgizegf-piyrafnb-cpkwasspxxu, metoclopramide, midazolam, normal saline, ondans etron, oxyCODONE-acetaminophen, potassium chloride, potassium chloride, sodium chloride (PF), Arterial line to monitor AND sodium chloride, traMADol, traMADol Meds Prior to Admission: Medications Prior to Admission Medication Sig Dispense Refill Acetaminophen (TYLENOL ARTHRITIS PAIN OR) Take 2 tablets by mouth as needed (nightly for arthritis pain). aspirin EC (ECOTRIN) 81 MG tablet Take 1 tablet (81 mg total) by mouth daily. bisacodyl EC (DULCOLAX) 5 MG Tab EC tablet Take 2 tablets (10 mg total) by mouth daily as needed (.). at bedtime. Calcium Citrate 250 MG Tab Take 2 tablets by mouth daily. melatonin 10 MG tablet Take 1 tablet (10 mg total) by mouth nightly as needed for Sleep. metoprolol succinate ER (TOPROL-XL) 50 MG 24 hr tablet Take 0.5 tablets (25 mg total) by mouth 2 (two) times daily. 30 tablet 3 vitamin ( PLUS) 27-1 MG tablet Take 1 tablet by mouth daily. rosuvastatin (CRESTOR) 40 MG tablet Take 1 tablet (40 mg total) by mouth nightly at bedtime. 90 tablet 3 sacubitril-valsartan (ENTRESTO) 24-26 MG tablet Take 1 tablet by mouth 2 (two) times daily. 60 tablet 6 vitamin B-12 (CYANOCOBALAMIN) 500 MCG tablet Take 1 tablet (500 mcg total) by mouth daily. vitamin C (ASCORBIC ACID) 500 MG tablet Take 2 tablets (1,000 mg total) by mouth daily. Vitamin D3 (CHOLECALCIFEROL) 50 mcg tablet Take 1 tablet (50 mcg total) by mouth daily. vitamin E 180 MG (400 UNIT) capsule Take 1 capsule (400 Units total) by mouth daily. zolpidem (AMBIEN) 5 MG tablet Take 1 tablet (5 mg total) by mouth nightly as needed for Sleep. [DISCONTINUED] metoprolol succinate ER (TOPROL-XL) 25 MG 24 hr tablet Take 1 tablet (25 mg total) by mouth daily. 90 tablet 3 [DISCONTINUED] metoprolol succinate ER (TOPROL-XL) 25 MG 24 hr tablet Take 1 tablet (25 mg total) by mouth 2 (two) times daily. 30 tablet 4 OBJECTIVE Last Recorded Weight 06/06/23 0600 Weight: 59.7 kg (131 lb 9.8 oz) Current BMI: Body mass index is 23.47 kg/m??. Vital signs: Vitals: 06/06/23 1500 BP: Pulse: 78 Resp: 20 Temp: SpO2: 96% Physical Exam Vitals reviewed. Constitutional: General: She is not in acute distress. HENT: Head: Normocephalic. Mouth/Throat: Mouth: Mucous membranes are moist. Eyes: Conjunctiva/sclera: Conjunctivae normal. Cardiovascular: Rate and Rhythm: Normal rate and regular rhythm. Heart sounds: No murmur heard. Pulmonary: Effort: Pulmonary effort is normal. Breath sounds: No rales. Chest: Comments: Chest tubes Abdominal: General: Bowel sounds are decreased. There is no distension. Palpations: Abdomen is soft. Musculoskeletal: Cervical back: Neck supple. Right lower leg: No edema. Left lower leg: No edema. Skin: General: Skin is warm and dry. Neurological: General: No focal deficit present. Mental Status: She is alert. Psychiatric: Behavior: Behavior normal. Thought Content: Thought content normal. Labs and Cultures: Lab Results Component Value Date NA 143 06/06/2023 K 4.1 06/06/2023 CL 114 (H) 06/06/2023 CO2 23.9 06/06/2023 BUN 17 06/06/2023 CR 0.80 06/06/2023 GLU 134 (H) 06/06/2023 CA 8.4 (L) 06/06/2023 TROP 10 04/28/2023 TROP 13 04/27/2023 TROP 9 04/27/2023 PBNP 1,378 (H) 04/27/2023 Lab Results Component Value Date WBC 10.14 06/06/2023 HGB 13.0 06/06/2023 PLT 129 (L) 06/06/2023 INR 1.1 06/06/2023 Lab Results Component Value Date ALB 3.7 06/04/2023 AST 21 06/04/2023 ALT 22 06/04/2023 HGBA1C 5.3 06/04/2023 TSH 3.820 (H) 04/28/2023 Imaging: ECG 12 lead Result Date: 06/06/2023 [address] [place] [address] Test Date: 2023-06-06 Pat Name: KENDY SALCIOD Department: 1 Room: [place] [address] Gender: Female 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 History of coronary artery disease. COMPARISON: 06/05/2023 FINDINGS: Interval removal of ET tube. Persistent right IJ central line and sheath with tip projected over the mid to distal superior vena cava. Persistent bilateral chest tubes and mediastinal drain. Cardiac monitoring leads again overlie the chest and abdomen. Stablepostoperative changes of median sternotomy, CABG and stable vascular clip in the region of left atrial appendage. Stable calcified granulomas in the left hilum and left mid to lower lung. The cardiomediastinal silhouette is otherwise within normal limits. Pulmonary vascularity is normal. There is minimal atelectasis in bilateral lower lobes. Lungs are otherwise clear. There may be a trace left pleural effusion with no appreciable right-sided pleural effusion. No pneumothorax. Stable asymmetric arthritic changes in the right shoulder. No acute osseous abnormality. IMPRESSION: 1. Removal of ET tube with the other tubes and lines remaining stable. 2. Minimal atelectasis in the lung bases with no other acute pulmonary disease. 3. Stable postoperative changes of CABG and stable vascular clip in the region of left atrial appendage. 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 Stat.:Inpatient CPT - 4: 39851 [id number] Reason for Study:Coronary bypass surgery Procedures: 2D, Doppler, Color Flow, Intraoperative, Transesophageal Race: W ++++++++++++++++++++++++++++++++++++ SUMMARY: ++++++++++++++++++++++++++++++++++++ Pre-bypass Sinus rhythm LV size normal, systolic function moderately depressed, estimated EF 35%, global hypokinesis, e specially in the basal inferior /septal / lateral donovan RV size and systolic function grossly normal Mild central MR Trace TR Trileaflet AV, no significant , moderate AI No thrombus in SHERRIE No PFO Post-bypass Paced rhythm Hyperdynamic heart, LV systolic function appears to have improved, estimatedEF now 50-55% Otherwise unchanged from previous No pericardial effusion after chest closure 2D, color flow, CWD and PWD used in exam ++++++++++++++++++++++++++++++++++++ FINDINGS: ++++++++++++++++++++++++++++++++++++ MARIA ANTONIA: The patient was counseled and an informed consent was obtained. The transesophageal probe was passed by anesthesia. Patient was under general anesthesia. Procedure was performedin the OR with anesthesia personnel present. ++++++++++++++++++++++++++++++++++++ MARIA ANTONIA: ++++++++++++++++++++++++++++++++++++ Comments: maria antonia probe 41 ++++++++++++++++++++++++++++++++++++ MEASUREMENTS: ++ ++++++++++++++++++++++++++++++++++ 2D Left Ventricle LV EF(Bi-Plane) 56 % (55- 75) Aorta Ao Rtd 4.3 cm Ao Asc 3.3 cm (2.1-3.4) LVOT LVOT 2.3 cm DOPPLER LVOT LVOTpkPG 1 mmHg LVOT TVI 11.5 cm LVOTpkVel 39.1 cm/s (70-110)* LVOT SV 48 ml AV Forward Flow AV TVI 19.7 cm AV pkPG 2 mmHg AV pkVel 76.6 cm/s (100-170)* Area (TVI) 2.42 cm2 (3-5)* AV mnVel 50 cm/s Area (Minesh) 2.12 cm2 (3-5)* AV mnPG 1 mmHg MV Forward Flow MV mnPG 2 mmHg MV pkPG 3 mmHg AV DI Value 0.6 <Electronic Signature> 06/05/2023 03:14 PM Kenia Streeter M.D. XR CHEST PORTABLE Result Date: 06/05/2023 Examination: X-ray chest, 1 view Exam time: 06/05/2023 at 1325 hours Clinical history: Postop. Comparison: 06/04/2023 Technique: Single frontal upright view of the chest obtained. FINDINGS: Right jugular central venous catheter, projecting over superior vena cava. Endotracheal tube, 4 cm above loreta. Sternotomy wires. Left atrial appendage clip. Clips in the right lower lung. Right chest tube. Left chest tube. Calcified granuloma. No peripheral consolidation. No pneumothorax. No pleural effusion. Cardiomediastinal silhouette unchanged. IMPRESSION: 1. No acute findings. 2. Lines and tubes as described above. Ordered By: AHMET LEVI Interpreted By: Juanito Broderick MD, 06/05/2023 1:47 PM XR CHEST PA+LAT Result Date: 06/05/2023 2 VIEWS OF THE CHEST Clinical history: Hypertension Comparison: None 2 views of the chest demonstrate the cardiac silhouette to be normal in size and appearance. The pulmonary vessels are normally distributed. The Lungs are clear. No consolidations or effusions are seen. 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 Stat.:Outpatient CPT - 4: 94417 Arterial Duplex LE Reason for Study :Pseudoaneurysm Race: W ++++++++++++++++++++++++++++++++++++ FINDINGS: ++++++++++++++++++++++++++++++++++++ Right: Hematoma noted at the groin measuring 1.9 x 1.6 cm. No pseudoaneurysm is noted. No AV fistula is noted. The external iliac, common femoral, profunda femoris, and proximal femoral veinsand arteries are patent. Possible extrinsic compression of the common femoral vein from the residual heamtoma. ++++++++++++++++++++++++++++++++++++ MEASUREMENTS: ++++++++++++++++++++++++++++++++++++ DOPPLER Right STAND IN STAND IN PSV 122 cm/s Right Prox Profunda Prox Profunda P 61 cm/s Right Prox SFA Prox SFA PSV 84 cm/s Right Dist EIA Dist EIA PSV 107 cm/s <Electronic Signature> 05/28/2023 05:15 Kameron Villaseñor M.D. USV CAROTID DUPLEX MEDARDO Result Date: 05/22/2023 [facility] Vascular Report Pat.Name: KENDY SALCIDO Pat.ID: [id number] St.Date: 05/21/2023 Refer.MD: AMADOR HELTON Exam Time: 5:09:00 PM Study Type:PVI CAROTID SCAN - BILATERAL Age: 8 1945,77Y Sex: F Sonogrphr: Boo Kay RVT, RD Pat. Stat.:Inpatient CPT - 4: 72814 Carotid Duplex Reason for Study:Pre-op evaluation Race: W ++++++++++++++++++++++++++++++++++++ SUMMARY: ++++++++++++++++++++++++++++++++++++ The present study is suggestive of a 0-39% bilateral ICA stenosis by doppler criteria. Normal antegrade flow observed in the vertebral arteries. ++++++++++++++++++++++++++++++++++++ FINDINGS: ++++++++++++++++++++++++++++++++++++ Rt Innom: The innominate artery is patent. Rt Subcl: The proximal subclavian artery is patent. Rt ICA: 0-39% stenosis with plaque noted in the internal carotid artery. Mild heterogeneous plaque noted. Rt ECA: Patent with antegrade flow noted in the external carotid artery. Rt Vert: Normal antegrade vertebral flow. Lt Subcl: The proximal subclavian artery is patent. Lt ICA: 0-39% stenosis with plaque noted in the internal carotid artery. Mild heterogeneous plaque noted. Lt ECA: Patent with antegrade flow noted in the external carotid artery. Lt Vert: Normal antegrade vertebral flow. ++++++++++++++++++++++++++++++++++++ MEASUREMENTS: +++++++++++ +++++++++++++++++++++++++ DOPPLER Right Prox CCA Prox CCA PSV 94.4 cm/s Prox CCA EDV 17.4 cm/s Right Innominate Innominate PSV 55.5 cm/s Right Mid CCA Mid CCA PSV 90.1 cm/s Mid CCA EDV 19.9 cm/s Right Dist CCA Dist CCA PSV 70.8 cm/s Dist CCA EDV 19.9 cm/s Right Prox ICA Prox ICA PSV 68.3 cm/s ProxICA EDV 19.9 cm/s Right Mid ICA Mid ICA PSV 78.9 cm/s Mid ICA EDV 25.5 cm/s Right Dist ICA Dist ICAPSV 70.8 cm/s Dist ICA EDV 22.4 cm/s Right Prox ECA Prox ECA PSV 82.6 cm/s Prox ECA EDV 10.6 cm/s Right Vertebral Vertebral PSV 60.9 cm/s Vertebral EDV 17.4 cm/s Right Prox SCA Prox SCA PSV 76.8 cm/sRight ICA/CCA RATIO ICA/CCA RATIO P 1.11 Left Prox CCA Prox CCA PSV 65.9 cm/s Prox CCA EDV 14.9 cm/s Left Mid CCA Mid CCA PSV 79.5 cm/s Mid CCA EDV 17.4 cm/s Left Dist CCA Dist CCA PSV 65.9 cm/s DistCCA EDV 14.9 cm/s Left Prox ICA Prox ICA PSV 90.7 cm/s Prox ICA EDV 28 cm/s Left Mid ICA Mid ICA PSV 66.8 cm/s Mid ICA EDV 20.6 cm/s Left Dist ICA Dist ICA PSV 89.9 cm/s Dist ICA EDV 22.6 cm/s Left Prox ECA Prox ECA PSV 75.2 cm/s Left Vertebral Vertebral PSV 56 cm/s Vertebral EDV 9.83 cm/s Left Prox SCA Prox SCA PSV 78.9 cm/s Left ICA/CCA RATIO ICA/CCA RATIO P 1.38 <Electronic Signature> 02:18 PM Hudson Polk M.D. USV VEIN MAPPING LOW MEDARDO Result Date: 05/21/2023 Vascular Report Pat.Name: KENDY SALCIDO Pat.ID: [id number] St.Date: 05/21/2023 Refer.MD: AMADOR HELTON Exam Time: 3:43:00 PM Study Type:PVI VENOUS DUPLEX SCAN-LEGS BILAT Height: 62 in DOBAge: 1945,77Y Sex: F Sonogrphr: Boo Kay RVT, RDCS Pat. Stat.:Inpatient CPT - 4: 66458 Venous Duplex LE/UE Reason for Study:Pre-op evaluation Race: W ++++++++++++++++++++++++++++++++++++ FINDINGS: ++++++++++++++++++++++++++++++++++++ Mapping Rt Low Ext: Right lower extremity visualized veins are patent and fully compressible with superficial vein diameters as listed. Unable to visualizethe great saphenous from the saphenofemoral junction to the mid thigh vein. 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 No AV fistula is noted. Mapping Lt Low Ext: Left lower extremity veins are patent and fully compressible with superficial vein diameters as listed. ++++++++++++++++++++++++++++++++++++ MEASUREMENTS: +++++++++ +++++++++++++++++++++++++++ LEVEINS Right Dist Thigh Dist Thigh GSV 3.87 mm Right GSV Prox Calf GSV Prox Calf A 4.48 mm Right GSV Mid Calf GSV Mid Calf AP 3.74 mm Right GSV Dist Calf GSV Dist Calf A4.67 mm Right SSV Prox Calf SSV Prox Calf A 3.29 mm Right Knee Knee GSV AP 4.12 mm Left SFJ SFJ GSVAP 5.87 mm Left Prox Thigh Prox Thigh GSV 3.88 mm Left Mid Thigh Mid Thigh GSV A 1.93 mm Left Dist Thigh Dist Thigh GSV 2.73 mm Left Knee Knee GSV AP 3.61 mm Left GSV Prox Calf GSV Prox Calf A 3.85 mm Left GSV Mid Calf GSV Mid Calf AP 3.1 mm Left GSV Dist Calf GSV Dist Calf 2.9 mm Left SSV Mid CalfSSV Mid Calf AP 2.23 mm Left SSV Prox Calf SSV Prox Calf A 2.28 mm <Electronic Signature> 05/21/2023 06:48 PM Hudson Polk M.D. 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: : 1945 Requested By: AHMET LEVI Order Number: [id number] Reading MD: Belinda Bocanegra Measurements Intervals [place]ena Rate: 54 P: 63 AK: 140 QRS: 78 QRSD: 94 T: 68 QT: 488 QTc: 463 Interpretive Statements SINUS BRADYCARDIA NG ANALYST ECG 12 lead Narrative [address] [place] [address] Test Date: 2023-06-06 Pat Name: KENDY SALCIDO Department: 1 Room: [place] [address] Gender: Female 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 Attestation Note ID: Kendy Salcido is a 77-year-old female : 1945 SUBJECTIVE I have independently interviewed and examined the patient in conjunction with the GRAY. We have discussed the case and agreed upon the assessment and plan discussed below. OBJECTIVE Vital signs in the last 24 hours: Temp: [97 ??F (36.1 ??C)-100.2 ??F (37.9 ??C)] 99.1 ??F (37.3 ??C) Pulse: [77-89] 81 Resp: [13-20] 20 BP: (108-174)/(59-96) 118/61 Arterial Line BP 1: (99-166)/(47-95) 130/55 Examination: GEN: Appears stable and in NAD. HEENT: No JVD or carotid bruits heard. LUNG: Clear to auscultation. HEART: Normal S1, Normal S2. No murmurs gallops or rubs. GI: Bowel sounds present, nontender, nondistended and no organomegaly. EXT: No edema. NEURO: Alert and Oriented. Nonfocal exam. PSYCH: Normal affect. LYMPHATIC: No adenopathy noted. SKIN: Sternotomy site looks clean without any sign of infection. Labs and Cultures: All labs have been reviewed. Pertinent labs include SODIUM S/P/B Date Value Ref Range Status 06/06/2023 143 136 - 145 MMOL/L Final 06/04/2023 133 (L) 136 - 145 MMOL/L Final 05/15/2023 139 135 - 146 Final POTASSIUM S/P/B Date Value Ref Range Status 06/06/2023 4.1 3.5 - 5.1 MMOL/L Final 06/04/2023 4.0 3.5 - 5.1 MMOL/L Final 05/15/2023 4.0 3.5 - 5.3 Final CREATININE S/P/B Date Value Ref Range Status 06/06/2023 0.80 0.55 - 1.02 MG/DL Final 06/04/2023 0.88 0.55 - 1.02 MG/DL Final 05/15/2023 0.79 0.6 - 1.0 Final Imaging: Recent imaging studies have been reviewed. ASSESSMENT The patient seems to be rib recovering as expected. She had a three-vessel bypass surgery with a RICHTER to the LAD and SVG to the OM and RUSSEL to the RCA. The only issue seems to be her blood pressure which is elevated so she has been placed on IV calcium channel akiko. PLAN CAD: Status post bypass surgery as described above. Recovering as expected. CHF: HFrEF with 30 to 35% ejection fraction presumably due to ischemic cardiomyopathy. Currently onbeta-akiko. Will add GDMT as tolerated. Hypertension: On IV CCB Cleviprex. Started on beta-akiko. Blood pressure will get better as we start to add the GDMT. Signed Junior Streeter MD documented in this encounter OR Notes * Op Note - Ahmet Levi MD - 06/05/2023 12:56 PM CST CARDIOTHORACIC SURGERY OPERATIVE NOTE DATE OF SURGERY: 06/05/2023 PREOPERATIVE DIAGNOSIS: Coronary artery disease. History of supraventricular tachycardia POSTOPERATIVE DIAGNOSIS: Same . OPERATIVE PROCEDURE: Coronary artery bypass grafting ?? 3 with saphenous vein to OM1, left internalmammary artery to left anterior descending artery, right internal mammary artery to right coronary artery, #40 Atricure clip. SURGEON: AHMET LEVI MD CAR USHER: Julien Berger BRIEF HISTORY: Kendy Salcido is a 77-year-old white female with a history of supraventricular tach tachycardia and severe symptomatic three-vessel coronary disease with decreased left ventricular function.. She was taken to the operating room for coronary artery bypass grafting. DESCRIPTION OF PROCEDURE: After adequate general endotracheal anesthesia was obtained the patient was prepped and draped in sterile fashion in supine position using Betadine solution, sterile towels and Vi-Drape. Transesophageal echocardiogram was placed which confirmed mild to moderate aortic insufficiency with depressed left ventricular function ejection fraction of 30%.. Saphenous vein segmentwas harvested from both legs by sharp and blunt dissection. Most of the saphenous vein was of poor quality. The wound was closed in 2 layers with absorbable suture. A segment of saphenous vein was 3 mm in diameter and of good quality. Chest was entered through median sternotomy. Hemostasis was achieved with Gelfoam and electrocautery. Left and right internal mammary arteries was taken down from the chest wall by sharp and blunt dissection using Bovie electrocautery. Mammaries were 2 mm in diameter and of good quality. Chest retractor was placed in position. Pericardium was opened, suspended from the chest wall and pericardial well was created. Aortic and right atrial pursestrings were placed. The patient was heparinized and cannulated with a single aortic and single two-stage venous cannula. The patient was placed on cardiopulmonary bypass and cooled to 34??. Cross-clamp was applied and cardioplegia was administered through the aortic root for a total of 1 liter, to maintain septal temperature below 15??, and then intermittently through antegrade and retrograde coronary sinus cardioplegia for the remainder of the procedure. The heart was elevated and the left atrial appendage was clipped with a #40 atricure clip. Attention was directed to the circumflex system. Arteriotomy was made in the OM1. Saphenous vein was spatulated and sutured in an end-to-side manner with 7-0 Prolene. A proximal aortotomy was made and the circumflex vein graft was spatulated and sutured in an end-to-side manner to the proximal aorta with 5-0 Prolene. Rings were applied. Attention was directed to the LAD system. Arteriotomy was made in the mid LAD. Left mammary artery was sutured to the left anterior descending artery with 8-0 Prolene. Proximal bulldog clamp was removed. Hemostasis was excellent. Mammary pedicle was sutured to the epicardium with 5-0 Prolene suture. Attention was directed to the right coronary system. Arteriotomy was made in the distal right coronary. Right internal mammary artery was spatulated and sutured inside manner to the distal right coronary artery with 8-0 Prolene. Proximal bulldog clamp was removed and hemostasis was excellent. Mammary pedicle was sutured to the epicardium with 5-0 Prolene suture. Cross-clamp was removed. Cross-clamp time was 55 minutes. Heart defibrillated into sinus rhythm. The patient was rewarmed. Atrial andventricular pacing wires,3 # 24 Mongolian chest tubes were placed. After adequate de-airing and rewarming, the patient was weaned from cardiopulmonary bypass without difficulty. Total bypass time was 72minutes. Venous and aortic cannulas were removed. Hemostasis was excellent. Heparin was reversed with protamine. Wound was carefully inspected for hemostasis. Hemostasis was excellent. Wound was closed in layers. Transesophageal echocardiogram demonstrated improved ventricular function with ejection fraction of 50% and trace to mild aortic insufficiency.. Sternum was reapproximated with six #6 renee rnal wires. Pectoralis and rectus abdominis fascia were closed with #1 PDS running suture. Subcutaneous tissue was irrigated with antibiotic solution prior to closure. Subcutaneous tissue was closed with 3-0 Vicryl. Skin was closed with absorbable subcuticular suture. Sterile dressing was applied. The patient tolerated the procedure well and was transferred to the recovery room in stable condition. FINDINGS AT THE TIME OF SURGERY: Coronary artery bypass grafting ?? 3 with saphenous vein to OM1, left internal mammary artery to left anterior descending artery, right internal mammary artery to right coronary artery, #40 atricure clip.. CROSS CLAMP TIME: 55 minutes. BYPASS TIME: 72 minutes. ESTIMATED BLOOD LOSS: Minimal, cell saver. AHMET LEVI MD NG ANALYST * Brief Op Note - Ahmet Levi MD - 06/05/2023 12:54 PM CST Brief CTS Postoperative Note Preop Diagnosis: CAD, H/O SVT Postop Diagnosis: Same Procedure: CABG x 3 SVG to OM1, RICHTER to LAD, RUSSEL to RCA, #40 Atricure clip Surgeon: AHMET LEVI MD Grinding Room Inspector: Julien Berger Findings: cad, poor veins Implants: #40 Atricure clip Specimens: none EBL: minimal, cell saver Complications: none AHMET LEVI MD HS Brief Op HSHSCORONARY ARTERY BYPASS, MARIA ANTONIA Procedure Note Kendy Salcido 06/05/2023 0700 Procedure(s) (LRB): CORONARY ARTERY BYPASS, MARIA ANTONIA (N/A) Surgeon(s): Ahmet Levi MD Grinding Room Inspector: Non Linear Editor: Cathy Frost RN; Franchesca Berger, SHOPPING CENTRE MANAGER; Juan Pablo Vera, CODING ANALYST Anesthesia: General Pre-Op Diagnosis: CAD Post-Op Diagnosis: Same Findings: cad Estimated Blood Loss: Minimal Specimens: None AHMET LEVI MD Date: 06/05/2023 Time: 12:56 PM NG ANALYST documented in this encounter Plan of Treatment Upcoming Encounters Date Type Department Care Team (Late st Contact Info) Description 02/12/2025 11:30 AM CDT Office Visit [facility] [address] [place] [id number] Jun Oscar, FREELANCE DESIGNER [address] [place] [address] Scheduled Orders Name Type Priority Associated Diagnoses Orde r Schedule BASIC METABOLIC PANEL Lab Routine S/P CABG x 3 Expected: 06/14/2023, Expires: 06/10/2024 documented as of this encounter Goals Goal Patient Goal Type Associated Problems Recent Progress Patient-Stated? Author Patient will return to prior living situation and remain independent in ADLs upon discharge from hospital Lifestyle No Shanel Haynes RN documented as of this encounter Procedures Procedure Name Priority Date/Time Associated Diagnosis Comments POCT GLUCOSE - VENTURA DOCKED DEVICE Routine 06/11/2023 11:16 AM CODING ANALYST POCT GLUCOSE - VENTURA DOCKED DEVICE Routine 06/11/2023 6:05 AM CODING ANALYST XR CHEST PORTABLE Routine 06/11/2023 5:5 8 AM CODING ANALYST PROTHROMBIN TIME, VENOUS Routine 06/11/2023 5:13 AM CODING ANALYST BASIC METABOLIC PANEL Routine 06/11/2023 5:13 AM CODING ANALYST CBC W/DIFF AUTOMATED Routine 06/11/2023 5:13 AM CODING ANALYST MAGNESIUM Routine 06/11/2023 5:13 AM CODING ANALYST POCT GLUCOSE - VENTURA DOCKED DEVICE Routine 06/10/2023 9:07 PM CODING ANALYST PROTHROMBIN TIME, VENOUS Routine 06/10/2023 5:36 PM CODING ANALYST HEPATIC FUNCTION PANEL Routine 5:36 PM CODING ANALYST POCT GLUCOSE - VENTURA DOCKED DEVICE Routine 06/10/2023 11:46 AM CODING ANALYST XR CHEST PORTABLE Routine 06/10/2023 6:0 5 AM CODING ANALYST BASIC METABOLIC PANEL Routine 06/10/2023 5:25 AM CODING ANALYST CBC W/DIFF AUTOMATED Routine 06/10/2023 5:25 AM CODING ANALYST MAGNESIUM Routine 06/10/2023 5:25 AM CODING ANALYST POCT GLUCOSE - VENTURA DOCKED DEVICE Routine 06/10/2023 5:21 AM CODING ANALYST POCT GLUCOSE - VENTURA DOCKED DEVICE Routine 06/09/2023 8:56 PM CODING ANALYST POCT GLUCOSE - VENTURA DOCKED DEVICE Routine 06/09/2023 4:45 PM CODING ANALYST POCT GLUCOSE - VENTURA DOCKED DEVICE Routine 06/09/2023 11:06 AM CODING ANALYST BASIC METABOLIC PANEL Routine 06/09/2023 8:45 AM CODING ANALYST CBC W/DIFF AUTOMATED Routine 06/09/2023 8:45 AM CODING ANALYST MAGNESIUM Routine 06/09/2023 8:45 AM CODING ANALYST XR CHEST PORTABLE Routine 06/09/2023 6:3 3 AM CODING ANALYST POCT GLUCOSE - VENTURA DOCKED DEVICE Routine 06/09/2023 5:15 AM CODING ANALYST POCT GLUCOSE - VENTURA DOCKED DEVICE Routine 06/08/2023 9:21 PM CODING ANALYST ECG 12-LEAD Routine 06/08/2023 5:34 PM CODING ANALYST ECG 12-LEAD STAT 06/08/2023 5:34 PM CODING ANALYST POCT GLUCOSE - VENTURA DOCKED DEVICE Routine 06/08/2023 4:29 PM CODING ANALYST POCT GLUCOSE - VENTURA DOCKED DEVICE Routine 06/08/2023 11:10 AM CODING ANALYST PROTHROMBIN TIME, VENOUS Routine 06/08/2023 6:20 AM CODING ANALYST BASIC METABOLIC PANEL Routine 06/08/2023 6:20 AM CODING ANALYST CBC W/DIFF AUTOMATED Routine 06/08/2023 6:20 AM CODING ANALYST MAGNESIUM Routine 06/08/2023 6:20 AM CODING ANALYST POCT GLUCOSE - VENTURA DOCKED DEVICE Routine 06/08/2023 6:14 AM CODING ANALYST XR CHEST PORTABLE Routine 06/08/2023 4:3 8 AM CODING ANALYST POCT GLUCOSE - VENTURA DOCKED DEVICE Routine 06/07/2023 11:12 PM CODING ANALYST POCT GLUCOSE - VENTURA DOCKED DEVICE Routine 06/07/2023 4:03 PM CODING ANALYST POCT GLUCOSE - VENTURA DOCKED DEVICE Routine 06/07/2023 10:59 AM CODING ANALYST POCT GLUCOSE - VENTURA DOCKED DEVICE Routine 06/07/2023 6:21 AM CODING ANALYST XR CHEST PORTABLE Routine 06/07/2023 5:1 7 AM CODING ANALYST PROTHROMBIN TIME, VENOUS Routine 06/07/2023 3:10 AM CODING ANALYST BASIC METABOLIC PANEL Routine 06/07/2023 3:10 AM CODING ANALYST CBC W/DIFF AUTOMATED Routine 06/07/2023 3:10 AM CODING ANALYST MAGNESIUM Routine 06/07/2023 3:10 AM CODING ANALYST POCT GLUCOSE - VENTURA DOCKED DEVICE Routine 06/06/2023 8:09 PM CODING ANALYST POCT GLUCOSE - VENTURA DOCKED DEVICE Routine 06/06/2023 4:36 PM CODING ANALYST POCT GLUCOSE - VENTURA DOCKED DEVICE Routine 06/06/2023 10:06 AM CODING ANALYST POCT GLUCOSE - VENTURA DOCKED DEVICE Routine 06/06/2023 8:16 AM CODING ANALYST POCT GLUCOSE - VENTURA DOCKED DEVICE Routine 06/06/2023 6:54 AM CODING ANALYST ECG 12-LEAD Routine 06/06/2023 5:28 AM CODING ANALYST POCT GLUCOSE - VENTURA DOCKED DEVICE Routine 06/06/2023 5:26 AM CODING ANALYST XR CHEST PORTABLE Routine 06/06/2023 5:1 1 AM CODING ANALYST POCT GLUCOSE - VENTURA DOCKED DEVICE Routine 06/06/2023 4:20 AM CODING ANALYST PROTHROMBIN TIME, VENOUS Routine 06/06/2023 4:20 AM CODING ANALYST BASIC METABOLIC PANEL Routine 06/06/2023 4:20 AM CODING ANALYST CBC W/DIFF AUTOMATED Routine 06/06/2023 4:20 AM CODING ANALYST MAGNESIUM Routine 06/06/2023 4:20 AM CODING ANALYST POCT GLUCOSE - VENTURA DOCKED DEVICE Routine 06/06/2023 3:06 AM CODING ANALYST POCT GLUCOSE - VENTURA DOCKED DEVICE Routine 06/06/2023 2:02 AM CODING ANALYST POCT GLUCOSE - VENTURA DOCKED DEVICE Routine 06/06/2023 1:20 AM CODING ANALYST POCT GLUCOSE - VENTURA DOCKED DEVICE Routine 06/06/2023 12:04 AM CODING ANALYST POCT GLUCOSE - VENTURA DOCKED DEVICE Routine 06/05/2023 11:07 PM CODING ANALYST POCT GLUCOSE - VENTURA DOCKED DEVICE Routine 06/05/2023 10:14 PM CODING ANALYST POCT ACUTE ARTERIAL PANEL Routine 06/05/2023 9:11 PM CODING ANALYST POCT GLUCOSE - VENTURA DOCKED DEVICE Routine 06/05/2023 9:09 PM CODING ANALYST POCT GLUCOSE - VENTURA DOCKED DEVICE Routine 06/05/2023 8:02 PM CODING ANALYST POCT EG7 BLD GAS ARTERIAL TEMP TSERING Routine 06/05/2023 7:03 PM CODING ANALYST POCT GLUCOSE - VENTURA DOCKED DEVICE Routine 06/05/2023 7:01 PM CODING ANALYST POCT GLUCOSE - VENTURA DOCKED DEVICE Routine 06/05/2023 6:15 PM CODING ANALYST POCT ACUTE ARTERIAL PANEL Routine 06/05/2023 5:33 PM CODING ANALYST POCT ACUTE ARTERIAL PANEL Routine 06/05/2023 5:08 PM CODING ANALYST POCT GLUCOSE - VENTURA DOCKED DEVICE Routine 06/05/2023 5:05 PM CODING ANALYST POCT ACUTE ARTERIAL PANEL Routine 06/05/2023 4:19 PM CODING ANALYST POCT GLUCOSE - VENTURA DOCKED DEVICE Routine 06/05/2023 4:17 PM CODING ANALYST POCT ACUTE ARTERIAL PANEL Routine 06/05/2023 3:04 PM CODING ANALYST POCT GLUCOSE - VENTURA DOCKED DEVICE Routine 06/05/2023 3:02 PM CODING ANALYST USE TRANSESOPHAGEAL ECHO Today 06/05/2023 2:47 PM CODING ANALYST POCT ACUTE ARTERIAL PANEL Routine 06/05/2023 2:05 PM CODING ANALYST POCT GLUCOSE - VENTURA DOCKED DEVICE Routine 06/05/2023 2:03 PM CODING ANALYST ECG 12-LEAD Routine 06/05/2023 1:42 PM CODING ANALYST XR CHEST PORTABLE STAT 06/05/2023 1:2 6 PM CODING ANALYST POCT ACUTE ARTERIAL PANEL Routine 06/05/2023 1:23 PM CODING ANALYST MAGNESIUM STAT 06/05/2023 1:21 PM CODING ANALYST POCT GLUCOSE - VENTURA DOCKED DEVICE Routine 06/05/2023 1:20 PM CODING ANALYST POCT ACUTE ARTERIAL PANEL Routine 06/05/2023 12:38 PM CODING ANALYST POCT GLUCOSE - VENTURA DOCKED DEVICE Routine 06/05/2023 12:36 PM CODING ANALYST POCT ACUTE ARTERIAL PANEL Routine 06/05/2023 11:51 AM CODING ANALYST POCT GLUCOSE - VENTURA DOCKED DEVICE Routine 06/05/2023 11:49 AM CODING ANALYST POCT ACUTE ARTERIAL PANEL Routine 06/05/2023 11:31 AM CODING ANALYST POCT GLUCOSE - VENTURA DOCKED DEVICE Routine 06/05/2023 11:29 AM CODING ANALYST POCT ACUTE ARTERIAL PANEL Routine 06/05/2023 11:12 AM CODING ANALYST POCT GLUCOSE - VENTURA DOCKED DEVICE Routine 06/05/2023 11:10 AM CODING ANALYST TRANSFUSE RED BLOOD CELLS Routine 06/05/2023 10:45 AM CODING ANALYST TRANSFUSE RED BLOOD CELLS Routine 06/05/2023 10:45 AM CODING ANALYST POCT ACUTE ARTERIAL PANEL Routine 06/05/2023 10:32 AM CODING ANALYST POCT GLUCOSE - VENTURA DOCKED DEVICE Routine 06/05/2023 10:30 AM CODING ANALYST POCT ACUTE ARTERIAL PANEL Routine 06/05/2023 7:15 AM CODING ANALYST POCT GLUCOSE - VENTURA DOCKED DEVICE Routine 06/05/2023 7:13 AM CODING ANALYST CORONARY ARTERY BYPASS 6:45 AM CODING ANALYST CAD MAGNESIUM Routine 06/05/2023 5:43 AM CODING ANALYST documented in this encounter Results * POCT glucose (06/11/2023 11:16 AM CODING ANALYST) GLUCOSE POC 104 70 - 109 06/11/2023 11:39 AM CODING ANALYST [facility] 06/11/2023 11:1 6 AM CODING ANALYST us Ahmet Levi MD POCT ORDERABLES - DEVICE Fi nal Result Performing Organization Address [facility]/ZIP Co de Phone Number [facility] [address] [place] [address], [phone] * POCT glucose (06/11/2023 6:05 AM CODING ANALYST) GLUCOSE POC 109 70 - 109 06/11/2023 6:07 AM CODING ANALYST [facility] 06/11/2023 6:05 AM CODING ANALYST us Ahmet Levi MD POCT ORDERABLES - DEVICE Fi nal Result Performing Organization Address [facility] Co de Phone Number [facility] [address] [place] [address], [phone] * XR CHEST PORTABLE (06/11/2023 5:58 AM CODING ANALYST) Anatomical Region Laterality Modality Chest Radiographic Fabiola ging 06/11/2023 6:55 AM CODING ANALYST Impressions 06/11/2023 6:55 AM CODING ANALYST IMPRESSION: Improving postoperative chest Ordered By: MARGARET SILVER Interpreted By: Javier Mayfield MD, 06/11/2023 6:55 AM Narrative 06/11/2023 6:55 AM CODING ANALYST SINGLE VIEW OF THE CHEST Clinical history: Postop CABG Comparison: June 10, 2023 A single view of the chest demonstrates the cardiac silhouette to be normal in size and appears stable. Sternotomy changes are again noted. Overall, the lungs are clear. Left basilar atelectasis has improved during the interval. Procedure Note Javier Mayfield MD - 06/11/2023 SINGLE VIEW OF THE CHEST Clinical history: Postop CABG Comparison: June 10, 2023 A single view of the chest demonstrates the cardiac silhouette to benormal in size and appears stable. Sternotomy changes are again noted.Overall, the lungs are clear. Left basilar atelectasis has improved duringthe interval. IMPRESSION: Improving postoperative chest Ordered By: MARGARET SILVER Interpreted By: Javier Mayfield MD, 06/11/2023 6:55 AM Margaret Silver HOME IMPROVEMENT INSTALLER GENERAL IMAGING Final Result * (ABNORMAL) PROTIME/INR, VENOUS - Daily (06/11/2023 5:13 AM CODING ANALYST) PROTIME 17.7(H) 9.4 - 12.5 SEC 06/11/2023 5:51 AM CODING ANALYST [facility] INR 1.6(H) 0.8 - 1.1 06/11/2023 5:51 AM CODING ANALYST [facility] 06/11/2023 5:13 AM CODING ANALYST Ahmet Levi MD LABORATORY Final Resul t [facility] [address] [place] [address], [phone] * (ABNORMAL) CBC W/DIFF AUTOMATED (06/11/2023 5:13 AM CODING ANALYST) WBC 7.41 4.00 - 10.80 x10'3/uL 06/11/2023 5:28 AM [facility] RBC 3.70(L) 4.10 - 5.40 x10'6/uL 06/11/2023 5:28 AM [facility] HGB 11.9(L) 12.0 - 16.0 G/DL 06/11/2023 5:28 AM [facility] HCT 35.4(L) 36.0 - 47.0 % 06/11/2023 5:28 AM [facility] MCV 95.7 78.0 - 100.0 FL 06/11/2023 5:28 AM [facility] MCH 32.2(H) 27.0 - 31.0 PG 06/11/2023 5:28 AM [facility] MCHC 33.6 33.0 - 36.0 G/DL 06/11/2023 5:28 AM [facility] RDW 13.0 11.5 - 14.5 % 06/11/2023 5:28 AM [facility] PLT 211 150 - 350 x10'3/uL 06/11/2023 5:28 AM [facility] MPV 9.8 7.4 - 10.4 FL 06/11/2023 5:28 AM [facility] ABS. NEUTROPHILS 5.09 1.60 - 8.30 x10'3/uL 06/11/2023 5:28 AM [facility] ABS. LYMPHOCYTES 0.99 0.80 - 4.70 x10'3/uL 06/11/2023 5:28 AM [facility] ABS. MONOCYTES 1.14 0.00 - 1.50 x10'3/uL 06/11/2023 5:28 AM [facility] ABS. EOSINOPHILS 0.10 0.00 - 0.40 x10'3/uL 06/11/2023 5:28 AM [facility] ABS. BASOPHILS 0.05 0.00 - 0.20 x10'3/uL 06/11/2023 5:28 AM CODING ANALYST [facility] ABS. IMMATURE GRANULOCYTES 0.04(H) 0.00 - 0.03 x10'3/uL 06/11/2023 5:28 AM CODING ANALYST [facility] ABS. NUCLEATED RBC'S 0.00 0.0 x10'3/uL 06/11/2023 5:28 AM CODING ANALYST [facility] 06/11/2023 5:13 AM CODING ANALYST Margaret Silver HOME IMPROVEMENT INSTALLER LABORATORY Final Result [facility] [address] [place] [address], [phone] * (ABNORMAL) BASIC METABOLIC PANEL (06/11/2023 5:13 AM CODING ANALYST) SODIUM S/P/B 131(L) 136 - 145 MMOL/L 06/11/2023 5:57 AM [facility] POTASSIUM S/P/B 3.7 3.5 - 5.1 MMOL/L 06/11/2023 5:57 AM [facility] CHLORIDE S/P/B 97(L) 98 - 107 MMOL/L 06/11/2023 5:57 AM [facility] CO2 28.6 21.0 - 32.0 MMOL/L 06/11/2023 5:57 AM [facility] GLUCOSE 106 74 - 106 MG/DL 06/11/2023 5:57 AM [facility] BUN 16 7 - 18 MG/DL 06/11/2023 5:57 AM [facility] CREATININE S/P/B 0.81 0.55 - 1.02 MG/DL 06/11/2023 5:57 AM [facility] CALCIUM S/P/B 8.3(L) 8.5 - 10.1 MG/DL 06/11/2023 5:57 AM [facility] ANION GAP 5.4 5.0 - 15.0 MMOL/L 06/11/2023 5:57 AM CODING ANALYST [facility] OSMOLALITY (CALC) 274 MOSM/KG 024 5:57 AM CODING ANALYST [facility] Comment:REFERENCE RANGE NOT ESTABLISHED GFR ESTIMATE 75(L) >90 ML/MIN/1. 73 M2 06/11/2023 5:57 AM CODING ANALYST [facility] GFR NOTES GFR REFERENCE S: 06/11/2023 5:57 AM CODING ANALYST [facility] Comment: THE ESTIMATED GFR IS CALCULATED [...] ml/min/1.73 m2 G5,KIDNEY FAILURE: <15 ml/min/1.73 m2 06/11/2023 5:13 AM CODING ANALYST Margaret Silver [facility] Final Result Performing Organization Address [facility] Co de Phone Number [facility] [address] [place] [address], [phone] * MAGNESIUM (06/11/2023 5:13 AM CODING ANALYST) MAGNESIUM 2.0 1.6 - 2.6 MG/DL 06/11/2023 5:57 AM CODING ANALYST [facility] 06/11/2023 5:13 AM CODING ANALYST Margaret Silver [facility] Final Result Performing Organization Address [facility] Co de Phone Number [facility] [address] [place] [address], [phone] * (ABNORMAL) POCT glucose (06/10/2023 9:07 PM CODING ANALYST) GLUCOSE POC 149(H) 70 - 109 06/10/2023 9:13 PM CODING ANALYST [facility] 06/10/2023 9:07 PM CODING ANALYST us Ahmet Levi MD POCT ORDERABLES - DEVICE Fi nal Result Performing Organization Address [facility] Co de Phone Number [facility] [address] [place] [address], [phone] * (ABNORMAL) PROTIME/INR, VENOUS - Today (06/10/2023 5:36 PM CODING ANALYST) PROTIME 14.8(H) 9.4 - 12.5 SEC 06/10/2023 6:24 PM CODING ANALYST [facility] INR 1.3(H) 0.8 - 1.1 06/10/2023 6:24 PM CODING ANALYST [facility] 06/10/2023 5:36 PM CODING ANALYST us Ahmet Levi MD LABORATORY Final Resul t Performing Organization Address [facility] Co de Phone Number [facility] [address] [place] [address], [id number] * (ABNORMAL) HEPATIC FUNCTION PANEL (06/10/2023 5:36 PM CODING ANALYST) BILIRUBIN TOTAL S/P/B 1.0 0.2 - 1.0 MG/DL 06/10/2023 6:28 PM CODING ANALYST [facility] BILIRUBIN DIRECT S/P/B 0.3(H) 0.0 - 0.2 MG/DL 06/10/2023 6:28 PM CODING ANALYST [facility] ALKALINE PHOSPHATASE S/P/B 56 55 - 142 U/L 06/10/2023 6:28 PM CODING ANALYST [facility] AST 43(H) 15 - 37 U/L 06/10/2023 6:28 PM CODING ANALYST [facility] ALT 33 13 - 56 U/L 06/10/2023 6:28 PM CODING ANALYST [facility] TOTAL PROTEIN S/P/B 6.2(L) 6.4 - 8.2 G/DL 06/10/2023 6:28 PM CODING ANALYST [facility] ALBUMIN S/P/B 2.5(L) 3.4 - 5.0 G/DL 06/10/2023 6:28 PM CODING ANALYST [facility] 06/10/2023 5:36 PM CODING ANALYST us Ahmet Levi MD LABORATORY Final Resul t Performing Organization Address [facility] Co de Phone Number [facility] [address] [place] [address], [id number] * (ABNORMAL) POCT glucose (06/10/2023 11:46 AM CODING ANALYST) [facility] GLUCOSE POC 112(H) 70 - 109 06/10/2023 12:27 PM CODING ANALYST [facility] 06/10/2023 11:4 6 AM CODING ANALYST us Ahmet Levi MD POCT ORDERABLES - DEVICE Fi nal Result Performing Organization Address [facility] Co de Phone Number [facility] [address] [place] [address], [phone] * XR CHEST PORTABLE (06/10/2023 6:05 AM CODING ANALYST) Anatomical Region Laterality Modality Chest Radiographic Fabiola ging 06/10/2023 7:27 AM CODING ANALYST Impressions 06/10/2023 7:27 AM CODING ANALYST IMPRESSION: Small left pleural effusion with associated atelectasis or infiltrate. Referred By: ?? Interpreted By: Cl Nichols MD, 06/10/2023 7:27 AM Narrative 06/10/2023 7:27 AM CODING ANALYST Examination: XR CHEST PORTABLE Exam time: 06/10/2023 6:03 AM Indication: Postoperative CABG Comparison: Chest 06/09/2023 Findings: Upright AP view of the chest was obtained. ??Post sternotomy changes. ??Stable right IJ sheath. ??There is evidence for previous granulomatous disease. ??There is a small left pleural effusion with associated atelectasis or infiltrate. ??No pneumothorax. Procedure Note Cl Nichols MD - 06/10/2023 Examination: XR CHEST PORTABLE Exam time: 06/10/2023 6:03 AM Indication: Postoperative CABG Comparison: Chest 06/09/2023 Findings: Upright AP view of the chest was obtained. Post sternotomychanges. Stable right IJ sheath. There is evidence for previousgranulomatous disease. There is a small left pleural effusion withassociated atelectasis or infiltrate. No pneumothorax. IMPRESSION: Small left pleural effusion with associated atelectasis orinfiltrate. Referred By: Interpreted By: Cl Nichols MD, 06/10/2023 7:27 AM us Margaret Silver [employer] INST[employer] GENERAL IMAGING Final Result * (ABNORMAL) CBC W/DIFF AUTOMATED (06/10/2023 5:25 AM CODING ANALYST) Pathologist [facility] WBC 5.44 4.00 - 10.80 x10'3/uL 06/10/2023 5:43 AM CODING ANALYST [facility] RBC 3.20(L) 4.10 - 5.40 x10'6/uL 06/10/2023 5:43 AM CODING ANALYST [facility] HGB 10.2(L) 12.0 - 16.0 G/DL 06/10/2023 5:43 AM CODING ANALYST [facility] HCT 30.8(L) 36.0 - 47.0 % 06/10/2023 5:43 AM [facility] MCV 96.3 78.0 - 100.0 FL 06/10/2023 5:43 AM [facility] MCH 31.9(H) 27.0 - 31.0 PG 06/10/2023 5:43 AM [facility] MCHC 33.1 33.0 - 36.0 G/DL 06/10/2023 5:43 AM [facility] RDW 12.9 11.5 - 14.5 % 06/10/2023 5:43 AM [facility] PLT 162 150 - 350 x10'3/uL 06/10/2023 5:43 AM [facility] MPV 10.2 7.4 - 10.4 FL 06/10/2023 5:43 AM [facility] ABS. NEUTROPHILS 4.10 1.60 - 8.30 x10'3/uL 06/10/2023 5:43 AM [facility] ABS. LYMPHOCYTES 0.52(L) 0.80 - 4.70 x10'3/uL 06/10/2023 5:43 AM [facility] ABS. MONOCYTES 0.69 0.00 - 1.50 x10'3/uL 06/10/2023 5:43 AM [facility] ABS. EOSINOPHILS 0.10 0.00 - 0.40 x10'3/uL 06/10/2023 5:43 AM [facility] ABS. BASOPHILS 0.02 0.00 - 0.20 x10'3/uL 06/10/2023 5:43 AM [facility] ABS. IMMATURE GRANULOCYTES 0.01 0.00 - 0.03 x10'3/uL 06/10/2023 5:43 AM [facility] ABS. NUCLEATED RBC'S 0.00 0.0 x10'3/uL 06/10/2023 5:43 AM [facility] 06/10/2023 5:25 AM CODING ANALYST Margaret Silver [employer] LABORATORY Final Result [facility] [address] [place] [address], [phone] * (ABNORMAL) BASIC METABOLIC PANEL (06/10/2023 5:25 AM CODING ANALYST) Pathologist [facility] SODIUM S/P/B 133(L) 136 - 145 MMOL/L 06/10/2023 6:10 AM [facility] POTASSIUM S/P/B 3.2(L) 3.5 - 5.1 MMOL/L 06/10/2023 6:10 AM [facility] CHLORIDE S/P/B 97(L) 98 - 107 MMOL/L 06/10/2023 6:10 AM [facility] CO2 29.8 21.0 - 32.0 MMOL/L 06/10/2023 6:10 AM [facility] GLUCOSE 100 74 - 106 MG/DL 06/10/2023 6:10 AM [facility] BUN 14 7 - 18 MG/DL 06/10/2023 6:10 AM [facility] CREATININE S/P/B 0.63 0.55 - 1.02 MG/DL 06/10/2023 6:10 AM [facility] CALCIUM S/P/B 7.8(L) 8.5 - 10.1 MG/DL 06/10/2023 6:10 AM [facility] ANION GAP 6.2 5.0 - 15.0 MMOL/L 06/10/2023 6:10 AM [facility] OSMOLALITY (CALC) 277 MOSM/KG 024 6:10 AM [facility] Comment:REFERENCE RANGE NOT ESTABLISHED GFR ESTIMATE >90 >90 ML/MIN/1. 73 M2 06/10/2023 6:10 AM CODING ANALYST [facility] GFR NOTES GFR REFERENCE S: 06/10/2023 6:10 AM CODING ANALYST [facility] Comment: THE ESTIMATED GFR IS CALCULATED [...] ml/min/1.73 m2 G5,KIDNEY FAILURE: <15 ml/min/1.73 m2 06/10/2023 5:2 5 AM CODING ANALYST Margaret Silver [facility] Final Result [facility] [address] [place] [address], [id number] * MAGNESIUM (06/10/2023 5:25 AM CODING ANALYST) MAGNESIUM 2.2 1.6 - 2.6 MG/DL 06/10/2023 6:10 AM CODING ANALYST [facility] 06/10/2023 5:25 AM CODING ANALYST Margaret Silver [facility] Final Result Performing Organization Address [facility]/ZIP Co de Phone Number [facility] [address] [place] [address], [id number] * (ABNORMAL) POCT glucose (06/10/2023 5:21 AM CODING ANALYST) GLUCOSE POC 112(H) 70 - 109 06/10/2023 5:38 AM CODING ANALYST [facility] 06/10/2023 5:21 AM CODING ANALYST us Ahmet Levi MD POCT ORDERABLES - DEVICE Fi nal Result Performing Organization Address [facility] Co de Phone Number [facility] [address] [place] [address], [place] [phone] * POCT glucose (06/09/2023 8:56 PM CODING ANALYST) GLUCOSE POC 101 70 - 109 06/09/2023 9:00 PM CODING ANALYST [facility] 06/09/2023 8:56 PM CODING ANALYST us Ahmet Levi MD POCT ORDERABLES - DEVICE Fi nal Result Performing Organization Address [facility] de Phone Number [facility] [address] [place] [address], [place] [phone] * POCT glucose (06/09/2023 4:45 PM CODING ANALYST) GLUCOSE POC 95 70 - 109 06/09/2023 4:51 PM CODING ANALYST [facility] 06/09/2023 4:45 PM CODING ANALYST us Ahmet eLvi MD POCT ORDERABLES - DEVICE Fi nal Result Performing Organization Address [facility] de Phone Number [facility] [address] [place] [address], [place] [phone] * (ABNORMAL) POCT glucose (06/09/2023 11:06 AM CODING ANALYST) GLUCOSE POC 123(H) 70 - 109 06/09/2023 11:26 AM CODING ANALYST [facility] 06/09/2023 11:0 6 AM CODING ANALYST us Ahmet Levi MD POCT ORDERABLES - DEVICE Fi nal Result [facility] [address] [place] [address], [id number] * (ABNORMAL) CBC W/DIFF AUTOMATED (06/09/2023 8:45 AM CODING ANALYST) WBC 6.65 4.00 - 10.80 x10'3/uL 06/09/2023 9:00 AM [facility] RBC 3.17(L) 4.10 - 5.40 x10'6/uL 06/09/2023 9:00 AM [facility] HGB 10.3(L) 12.0 - 16.0 G/DL 06/09/2023 9:00 AM [facility] HCT 30.6(L) 36.0 - 47.0 % 06/09/2023 9:00 AM [facility] MCV 96.5 78.0 - 100.0 FL 06/09/2023 9:00 AM [facility] MCH 32.5(H) 27.0 - 31.0 PG 06/09/2023 9:00 AM [facility] MCHC 33.7 33.0 - 36.0 G/DL 06/09/2023 9:00 AM [facility] RDW 13.2 11.5 - 14.5 % 06/09/2023 9:00 AM [facility] PLT 144(L) 150 - 350 x10'3/uL 06/09/2023 9:00 AM [facility] MPV 10.4 7.4 - 10.4 FL 06/09/2023 9:00 AM [facility] ABS. NEUTROPHILS 5.18 1.60 - 8.30 x10'3/uL 06/09/2023 9:00 AM [facility] ABS. LYMPHOCYTES 0.68(L) 0.80 - 4.70 x10'3/uL 06/09/2023 9:00 AM CODING ANALYST [facility] ABS. MONOCYTES 0.73 0.00 - 1.50 x10'3/uL 06/09/2023 9:00 AM [facility] ABS. EOSINOPHILS 0.02 0.00 - 0.40 x10'3/uL 06/09/2023 9:00 AM CODING ANALYST [facility] ABS. BASOPHILS 0.01 0.00 - 0.20 x10'3/uL 06/09/2023 9:00 AM [facility] ABS. IMMATURE GRANULOCYTES 0.03 0.00 - 0.03 x10'3/uL 06/09/2023 9:00 AM [facility] ABS. NUCLEATED RBC'S 0.00 0.0 x10'3/uL 06/09/2023 9:00 AM [facility] 06/09/2023 8:45 AM CODING ANALYST Margaret Silver [facility] Final Result [facility] [address] [place] [address], [id number] * (ABNORMAL) BASIC METABOLIC PANEL (06/09/2023 8:45 AM CODING ANALYST) SODIUM S/P/B 134(L) 136 - 145 MMOL/L 06/09/2023 9:24 AM [facility] POTASSIUM S/P/B 3.9 3.5 - 5.1 MMOL/L 06/09/2023 9:24 AM [facility] Comment:MILD HEMOLYSIS, RESU LT MAY BE AFFECTED. CHLORIDE S/P/B 99 98 - 107 MMOL/L 06/09/2023 9:24 AM [facility] CO2 30.2 21.0 - 32.0 MMOL/L 06/09/2023 9:24 AM [facility] GLUCOSE 113(H) 74 - 106 MG/DL 06/09/2023 9:24 AM [facility] BUN 20(H) 7 - 18 MG/DL 06/09/2023 9:24 AM [facility] CREATININE S/P/B 0.72 0.55 - 1.02 MG/DL 06/09/2023 9:24 AM [facility] CALCIUM S/P/B 7.9(L) 8.5 - 10.1 MG/DL 06/09/2023 9:24 AM [facility] ANION GAP 4.8(L) 5.0 - 15.0 MMOL/L 06/09/2023 9:24 AM [facility] OSMOLALITY (CALC) 281 MOSM/KG 024 9:24 AM [facility] Comment:REFERENCE RANGE NOT ESTABLISHED GFR ESTIMATE 86(L) >90 ML/MIN/1. 73 M2 06/09/2023 9:24 AM [facility] GFR NOTES GFR REFERENCE S: 06/09/2023 9:24 AM [facility] Comment: THE ESTIMATED GFR IS CALCULATED [...] ml/min/1.73 m2 G5,KIDNEY FAILURE: <15 ml/min/1.73 m2 06/09/2023 8:45 AM CODING ANALYST us Margaret Silver [employer] LABORAT[facility] Final Result [facility] [address] [place] [address], [place] [phone] * MAGNESIUM (06/09/2023 8:45 AM CODING ANALYST) MAGNESIUM 1.9 1.6 - 2.6 MG/DL 06/09/2023 9:24 AM CODING ANALYST [facility] Comment:RESULT QUESTIONABLE DUE TO HEMOLYSIS, RECOMMEND RECOLLECTION. 06/09/2023 8:45 AM CODING ANALYST Margaret Silver [employer] [facility] LABORAT[facility] Final Result [facility] [address] [place] [address], [phone] * XR CHEST PORTABLE (06/09/2023 6:33 AM CODING ANALYST) Anatomical Region Laterality Modality Chest Radiographic Fabiola ging 06/09/2023 7:01 AM CODING ANALYST Impressions 06/09/2023 7:02 AM CODING ANALYST IMPRESSION: Mild right basilar atelectasis or infiltrate. ??There may be a small right pleural effusion as well. Referred By: ?? Interpreted By: Cl Nichols MD, 06/09/2023 7:01 AM Narrative 06/09/2023 7:02 AM CODING ANALYST Examination: XR CHEST PORTABLE Exam time: 06/09/2023 5:52 AM Indication: Status post CABG Comparison: Chest 06/08/2023 Findings: Upright AP view of the chest was obtained. ??There is a stable right IJ vascular sheath. ??Poststernotomy changes. ??Cardiomegaly. ??Previous granulomatous disease. ??No pneumothorax. ??The patient is mildly rotated to the right. ??There is mild right basilar atelectasis or infiltrate. ??There may be a small right pleural effusion as well. Procedure Note Cl Nichols MD - 06/09/2023 Examination: XR CHEST PORTABLE Exam time: 06/09/2023 5:52 AM Indication: Status post CABG Comparison: Chest 06/08/2023 Findings: Upright AP view of the chest was obtained. There is a stableright IJ vascular sheath. Poststernotomy changes. Cardiomegaly.Previous granulomatous disease. No pneumothorax. The patient is mildlyrotated to the right. There is mild right basilar atelectasis orinfiltrate. There may be a small right pleural effusion as well. IMPRESSION: Mild right basilar atelectasis or infiltrate. There may be asmall right pleural effusion as well. Referred By: Interpreted By: Cl Nichols MD, 06/09/2023 7:01 AM Margaret Silver HOME IM[employer]OVEMENT INSTALLER GENERAL IMAGING Final Result * (ABNORMAL) POCT glucose (06/09/2023 5:15 AM CODING ANALYST) GLUCOSE POC 113(H) 70 - 109 06/09/2023 5:57 AM CODING ANALYST [facility] 06/09/2023 5:15 AM CODING ANALYST Ahmet Levi MD POCT ORDERABLES - DEVICE Fi nal Result Performing Organization Address [facility] Co de Phone Number [facility] [address] [place] [address], [phone] * (ABNORMAL) POCT glucose (06/08/2023 9:21 PM CODING ANALYST) GLUCOSE POC 137(H) 70 - 109 06/08/2023 9:34 PM CODING ANALYST [facility] 06/08/2023 9:21 PM CODING ANALYST us Ahmet Levi MD POCT ORDERABLES - DEVICE Fi nal Result Performing Organization Address [facility] Co de Phone Number [facility] [address] [place] [address], [phone] * ECG 12 lead (06/08/2023 5:34 PM CODING ANALYST) 06/08/2023 5:34 PM CODING ANALYST Narrative [facility] - 06/09/2023 9:51 AM CODING ANALYST ? [facility] ?[address] [place], [place] ??[address] ? Test Date: ?2023-06-08 Pat Name: ? KENDY SALCIDO ? Department: ?? 1 ? Room: ? 602AA Gender: ? Female ? Agriculture Sales Account Manager: ?? Micah : ?1945 ? Requested By: MARGARET SILVER Order Number: [id number] ? Reading MD: ?? Belinda Bocanegra ? Measurements Intervals ?[place] ? Rate: ? 144 ?P: ? AK: ? 0 ?QRS: ?57 QRSD: ? 94 ? T: ?212 QT: ? 279 ? QTc: ?433 ? Interpretive Statements ATRIAL FIBRILLATION WITH RAPID VENTRICULAR RESPONSE MODERATE T-WAVE ABNORMALITY, CONSIDER LATERAL ISCHEMIA ??[-0.1+ mV T-WAVE IN I/aVL/V5/V6] MODERATE T-WAVE ABNORMALITY, CONSIDER INFERIOR ISCHEMIA ??[-0.1+ mV T-WAVE IN II/aVF] NG ANALYST Procedure Note Belinda Bocanegra MD - 06/09/[address] [address] Test Date: 2023-06-08 Pat Name: KENDY SALCIDO Department: 1 Room: [facility] Gender: Female Agriculture Sales Account Manager: Micah : 1945 Requested By: MARGARET SILVER Order Number: [id number] Gerard MD: Belinda Bocanegra Measurements Intervals [place] Rate: 144 P: AK: 0 QRS: 57 QRSD: 94 T: 212 QT: 279 QTc: 433 Interpretive Statements ATRIAL FIBRILLATION WITH RAPID VENTRICULAR RESPONSE MODERATE T-WAVE ABNORMALITY, CONSIDER LATERAL ISCHEMIA [-0.1+ mV T-WAVEIN I/aVL/V5/V6] MODERATE T-WAVE ABNORMALITY, CONSIDER INFERIOR ISCHEMIA [-0.1+ mV T-WAVEIN II/aVF] NG ANALYST us Margaret Silver HOME IMPROVEMENT INSTALLER ECG ORDERABLES Final Result [facility] * ECG 12 lead (06/08/2023 5:34 PM CODING ANALYST) 06/08/2023 5:34 PM CODING ANALYST Narrative [facility] - 06/09/2023 9:51 AM CODING ANALYST ? [facility] ?[address], [place] ??[address] ? Test Date: ?2023-06-08 Pat Name: ? KENDY SALCIDO ? Department: ?? 1 ? Room: ? 602AA Gender: ? Female ? Agriculture Sales Account Manager: ?? Micah : ?1945 ? Requested By: MARGARET SILVER Order Number: [id number] ? Reading MD: ?? Belinda Bocanegra ? Measurements Intervals ?[place] ? Rate: ? 146 ?P: ? AK: ? 0 ?QRS: ?57 QRSD: ? 96 ? T: ?233 QT: ? 275 ? QTc: ?430 ? Interpretive Statements ATRIAL FIBRILLATION WITH RAPID VENTRICULAR RESPONSE ST DEVIATION AND MODERATE T-WAVE ABNORMALITY, CONSIDER LATERAL ISCHEMIA [-0.1+ mV T-WAVE IN I/aVL/V5/V6] ST DEVIATION AND MODERATE T-WAVE ABNORMALITY, CONSIDER INFERIOR ISCHEMIA [-0.1+ mV T-WAVE IN II/aVF] NG ANALYST Procedure Note Belinda Bocanegra MD - 06/09/2023 [place] [address] [place] [address] Test Date: 2023-06-08 Pat Name: KENDY SALCIDO Department: 1 Room: 60A Gender: Female Agriculture Sales Account Manager: Micah : 1945 Requested By: MARGARET SILVER Order Number: [id number] Reading MD: Belinda Bocanegra Measurements Intervals [place] Rate: 146 P: AK: 0 QRS: 57 QRSD: 96 T: 233 QT: 275 QTc: 430 Interpretive Statements ATRIAL FIBRILLATION WITH RAPID VENTRICULAR RESPONSE ST DEVIATION AND MODERATE T-WAVE ABNORMALITY, CONSIDER LATERAL ISCHEMIA [-0.1+ mV T-WAVE IN I/aVL/V5/V6] ST DEVIATION AND MODERATE T-WAVE ABNORMALITY, CONSIDER INFERIOR ISCHEMIA [-0.1+ mV T-WAVE IN II/aVF] NG ANALYST Margaret Silver HOME IMPROVEMENT INSTALLER ECG ORDERABLES Final Result Performing Organization Address [facility] Co de Phone Number [facility] * POCT glucose (06/08/2023 4:29 PM CODING ANALYST) [facility] GLUCOSE POC 102 70 - 109 06/08/2023 4:53 PM CODING ANALYST [facility] 06/08/2023 4:29 PM CODING ANALYST Ahmet Levi MD POCT ORDERABLES - DEVICE Fi nal Result Performing Organization Address [facility] de Phone Number [facility] [address] [place] [address], [phone] * (ABNORMAL) POCT glucose (06/08/2023 11:10 AM CODING ANALYST) [facility] GLUCOSE POC 59(L) 70 - 109 06/08/2023 11:52 AM CODING ANALYST [facility] 06/08/2023 11:1 0 AM CODING ANALYST Ahmet Levi MD POCT ORDERABLES - DEVICE Fi nal Result Performing Organization Address [facility] de Phone Number [facility] [address] [place] [address], [phone] * MAGNESIUM (06/08/2023 6:20 AM CODING ANALYST) MAGNESIUM 1.9 1.6 - 2.6 MG/DL 06/08/2023 7:09 AM [facility] Comment:RESULT QUESTIONABLE DUE TO HEMOLYSIS, CONSIDER RECOLLECTION. 06/08/2023 6:20 AM CODING ANALYST Margaret Silver [facility] [employer] [facility] Final Result [facility] [address] [place] [address], [id number] * (ABNORMAL) BASIC METABOLIC PANEL (06/08/2023 6:20 AM CODING ANALYST) SODIUM S/P/B 137 136 - 145 MMOL/L 06/08/2023 7:09 AM [facility] POTASSIUM S/P/B 3.7 3.5 - 5.1 MMOL/L 06/08/2023 7:09 AM [facility] Comment:SLIGHT HEMOLYSIS, RE SULT MAY BE AFFECTED. CHLORIDE S/P/B 101 98 - 107 MMOL/L 06/08/2023 7:09 AM [facility] CO2 29.6 21.0 - 32.0 MMOL/L 06/08/2023 7:09 AM [facility] GLUCOSE 91 74 - 106 MG/DL 06/08/2023 7:09 AM [facility] BUN 24(H) 7 - 18 MG/DL 06/08/2023 7:09 AM [facility] CREATININE S/P/B 0.77 0.55 - 1.02 MG/DL 06/08/2023 7:09 AM [facility] CALCIUM S/P/B 8.5 8.5 - 10.1 MG/DL 06/08/2023 7:09 AM [facility] ANION GAP 6.4 5.0 - 15.0 MMOL/L 06/08/2023 7:09 AM [facility] OSMOLALITY (CALC) 288 MOSM/KG 024 7:09 AM [facility] Comment:REFERENCE RANGE NOT ESTABLISHED GFR ESTIMATE 79(L) >90 ML/MIN/1. 73 M2 06/08/2023 7:09 AM CODING ANALYST [facility] GFR NOTES GFR REFERENCE S: 06/08/2023 7:09 AM CODING ANALYST [facility] Comment: THE ESTIMATED GFR IS CALCULATED [...] ml/min/1.73 m2 G5,KIDNEY FAILURE: <15 ml/min/1.73 m2 06/08/2023 6:20 AM CODING ANALYST us Margaret Silver [employer] [facility]ORAT[facility] Final Result [facility] [address] [place] [address], [id number] * (ABNORMAL) CBC W/DIFF AUTOMATED (06/08/2023 6:20 AM CODING ANALYST) WBC 8.90 4.00 - 10.80 x10'3/uL 06/08/2023 6:53 AM CODING ANALYST [facility] RBC 3.44(L) 4.10 - 5.40 x10'6/uL 06/08/2023 6:53 AM CODING ANALYST [facility] HGB 10.9(L) 12.0 - 16.0 G/DL 06/08/2023 6:53 AM CODING ANALYST [facility] HCT 33.9(L) 36.0 - 47.0 % 06/08/2023 6:53 AM CODING ANALYST [facility] MCV 98.5 78.0 - 100.0 FL 06/08/2023 6:53 AM [facility] MCH 31.7(H) 27.0 - 31.0 PG 06/08/2023 6:53 AM [facility] MCHC 32.2(L) 33.0 - 36.0 G/DL 06/08/2023 6:53 AM [facility] RDW 14.1 11.5 - 14.5 % 06/08/2023 6:53 AM [facility] PLT 132(L) 150 - 350 x10'3/uL 06/08/2023 6:53 AM [facility] MPV 11.0(H) 7.4 - 10.4 FL 06/08/2023 6:53 AM [facility] ABS. NEUTROPHILS 7.28 1.60 - 8.30 x10'3/uL 06/08/2023 6:53 AM [facility] ABS. LYMPHOCYTES 0.72(L) 0.80 - 4.70 x10'3/uL 06/08/2023 6:53 AM [facility] ABS. MONOCYTES 0.81 0.00 - 1.50 x10'3/uL 06/08/2023 6:53 AM [facility] ABS. EOSINOPHILS 0.01 0.00 - 0.40 x10'3/uL 06/08/2023 6:53 AM [facility] ABS. BASOPHILS 0.04 0.00 - 0.20 x10'3/uL 06/08/2023 6:53 AM [facility] ABS. IMMATURE GRANULOCYTES 0.04(H) 0.00 - 0.03 x10'3/uL 06/08/2023 6:53 AM [facility] ABS. NUCLEATED RBC'S 0.00 0.0 x10'3/uL 06/08/2023 6:53 AM [facility] 06/08/2023 6:20 AM CODING ANALYST [facility] [employer] LABORATORY Final Result Performing Organization Address [facility] de Phone Number [facility] [address] [place] [address], [phone] * PROTIME/INR, VENOUS (06/08/2023 6:20 AM CODING ANALYST) PROTIME 12.1 9.4 - 12.5 SEC 06/08/2023 6:59 AM CODING ANALYST [facility] INR 1.1 0.8 - 1.1 06/08/2023 6:59 AM CODING ANALYST [facility] 06/08/2023 6:20 AM CODING ANALYST us Ahmet Levi MD LABORATORY Final Resul t Performing Organization Address [facility] de Phone Number [facility] [address] [place] [address], [phone] * POCT glucose (06/08/2023 6:14 AM CODING ANALYST) GLUCOSE POC 93 70 - 109 06/08/2023 6:34 AM CODING ANALYST [facility] 06/08/2023 6:14 AM CODING ANALYST us Ahmet Levi MD POCT ORDERABLES - DEVICE Fi nal Result Performing Organization Address [facility] de Phone Number [facility] [address] [place] [address], [phone] * XR CHEST PORTABLE (06/08/2023 4:38 AM CODING ANALYST) Anatomical Region Laterality Modality Chest Radiographic Fabiola ging 06/08/2023 4:58 AM CODING ANALYST Impressions 06/08/2023 4:59 AM CODING ANALYST IMPRESSION: Single view chest 1. ??Chest tube removal and stable sheath without significant pneumothorax 2. ??Stable cardiac silhouette and mediastinum 3. ??Slight increased left basilar airspace opacities or atelectasis Referred By: ?? Interpreted By: Mauricio Miner MD, 06/08/2023 4:58 AM Narrative 06/08/2023 4:59 AM CODING ANALYST Indication: Postop CABG COMPARISON: 06/07/2023 Procedure Note Ti Miner MD - 06/08/2023 Indication: Postop CABG COMPARISON: 06/07/2023 IMPRESSION: Single view chest 1. Chest tube removal and stable sheath without significantpneumothorax 2. Stable cardiac silhouette and mediastinum 3. Slight increased left basilar airspace opacities or atelectasis Referred By: Interpreted By: Mauricio Miner MD, 06/08/2023 4:58 AM [facility] [employer] GENERAL IMAGING Final Result * (ABNORMAL) POCT glucose (06/07/2023 11:12 PM CODING ANALYST) GLUCOSE POC 113(H) 70 - 109 06/07/2023 11:14 PM CODING ANALYST [facility] Comment:RN Notified 06/07/2023 11:1 2 PM CODING ANALYST Ahmet Levi MD POCT ORDERABLES - DEVICE Fi nal Result [facility] [address] [place] [address], [id number] * (ABNORMAL) POCT glucose (06/07/2023 4:03 PM CODING ANALYST) GLUCOSE POC 162(H) 70 - 109 06/07/2023 4:58 PM CODING ANALYST [facility] 06/07/2023 4:03 PM CODING ANALYST Ahmet Levi MD POCT ORDERABLES - DEVICE Fi nal Result Performing Organization Address [facility] Co de Phone Number [facility] [address] [place] [address], [phone] * (ABNORMAL) POCT glucose (06/07/2023 10:59 AM CODING ANALYST) GLUCOSE POC 144(H) 70 - 109 06/07/2023 11:06 AM CODING ANALYST [facility] 06/07/2023 10:5 9 AM CODING ANALYST Ahmet Levi MD POCT ORDERABLES - DEVICE Fi nal Result Performing Organization Address [facility] de Phone Number [facility] [address] [place] [address], [phone] * POCT glucose (06/07/2023 6:21 AM CODING ANALYST) GLUCOSE POC 99 70 - 109 06/07/2023 6:31 AM CODING ANALYST [facility] 06/07/2023 6:21 AM CODING ANALYST Ahmet Levi MD POCT ORDERABLES - DEVICE Fi nal Result Performing Organization Address [facility] Co de Phone Number [facility] [address] [place] [address], [place] [phone] * XR CHEST PORTABLE (06/07/2023 5:17 AM CODING ANALYST) Anatomical Region Laterality Modality Chest Radiographic Fabiola ging 06/07/2023 7:08 AM CODING ANALYST Impressions 06/07/2023 7:08 AM CODING ANALYST IMPRESSION: Stable postoperative chest Ordered By: AHMET LEVI Interpreted By: Javier Mayfield MD, 06/07/2023 7:08 AM Narrative 06/07/2023 7:08 AM CODING ANALYST SINGLE VIEW OF THE CHEST Clinical history: Postop Comparison: June 06, 2023 A single view of the chest demonstrates the cardiac silhouette to be at the upper limits of normal in size but appears stable. Bilateral chest tubes in the right internal jugular sheath remain in good position. The pulmonary vessels are normally distributed. The Lungs are clear. No consolidations or effusions are seen. Procedure Note Javier Mayfield MD - 06/07/2023 SINGLE VIEW OF THE CHEST Clinical history: Postop Comparison: June 06, 2023 A single view of the chest demonstrates the cardiac silhouette to be atthe upper limits of normal in size but appears stable. Bilateral chesttubes in the right internal jugular sheath remain in good position. Thepulmonary vessels are normally distributed. The Lungs are clear. Noconsolidations or effusions are seen. IMPRESSION: Stable postoperative chest Ordered By: AHMET LEVI Interpreted By: Javier Mayfield MD, 06/07/2023 7:08 AM Ahmet Levi MD GENERAL IMAGING Final Resul t * MAGNESIUM (06/07/2023 3:10 AM CODING ANALYST) Pathologist [facility] MAGNESIUM 2.1 1.6 - 2.6 MG/DL 06/07/2023 3:57 AM CODING ANALYST [facility] 06/07/2023 3:10 AM CODING ANALYST Margaret Silver [employer] LABORAT[facility] Final Result [facility] [address] [place] [address], [id number] * (ABNORMAL) BASIC METABOLIC PANEL (06/07/2023 3:10 AM CODING ANALYST) SODIUM S/P/B 140 136 - 145 MMOL/L 06/07/2023 3:57 AM CODING ANALYST [facility] POTASSIUM S/P/B 4.1 3.5 - 5.1 MMOL/L 06/07/2023 3:57 AM [facility] CHLORIDE S/P/B 108(H) 98 - 107 MMOL/L 06/07/2023 3:57 AM [facility] CO2 27.4 21.0 - 32.0 MMOL/L 06/07/2023 3:57 AM [facility] GLUCOSE 116(H) 74 - 106 MG/DL 06/07/2023 3:57 AM [facility] BUN 21(H) 7 - 18 MG/DL 06/07/2023 3:57 AM [facility] CREATININE S/P/B 0.84 0.55 - 1.02 MG/DL 06/07/2023 3:57 AM [facility] CALCIUM S/P/B 8.5 8.5 - 10.1 MG/DL 06/07/2023 3:57 AM [facility] ANION GAP 4.6(L) 5.0 - 15.0 MMOL/L 06/07/2023 3:57 AM [facility] OSMOLALITY (CALC) 294 MOSM/KG 024 3:57 AM [facility] Comment:REFERENCE RANGE NOT ESTABLISHED GFR ESTIMATE 72(L) >90 ML/MIN/1. 73 M2 06/07/2023 3:57 AM [facility] GFR NOTES GFR REFERENCE S: 06/07/2023 3:57 AM [facility] Comment: THE ESTIMATED GFR IS CALCULATED [...] ml/min/1.73 m2 G5,KIDNEY FAILURE: <15 ml/min/1.73 m2 06/07/2023 3:10 AM CODING ANALYST Margaret Silver [employer] Final Result [facility] [address] [place] [address], [phone] * (ABNORMAL) CBC W/DIFF AUTOMATED (06/07/2023 3:10 AM CODING ANALYST) WBC 10.75 4.00 - 10.80 x10'3/uL 06/07/2023 3:36 AM [facility] RBC 3.77(L) 4.10 - 5.40 x10'6/uL 06/07/2023 3:36 AM [facility] HGB 12.0 12.0 - 16.0 G/DL 06/07/2023 3:36 AM CODING ANALYST [facility] HCT 36.5 36.0 - 47.0 % 06/07/2023 3:36 AM [facility] MCV 96.8 78.0 - 100.0 FL 06/07/2023 3:36 AM [facility] MCH 31.8(H) 27.0 - 31.0 PG 06/07/2023 3:36 AM [facility] MCHC 32.9(L) 33.0 - 36.0 G/DL 06/07/2023 3:36 AM [facility] RDW 15.0(H) 11.5 - 14.5 % 06/07/2023 3:36 AM [facility] PLT 122(L) 150 - 350 x10'3/uL 06/07/2023 3:36 AM [facility] MPV 10.1 7.4 - 10.4 FL 06/07/2023 3:36 AM [facility] ABS. NEUTROPHILS 8.72(H) 1.60 - 8.30 x10'3/uL 06/07/2023 3:36 AM CODING ANALYST [facility] ABS. LYMPHOCYTES 0.86 0.80 - 4.70 x10'3/uL 06/07/2023 3:36 AM CODING ANALYST [facility] ABS. MONOCYTES 1.11 0.00 - 1.50 x10'3/uL 06/07/2023 3:36 AM CODING ANALYST [facility] ABS. EOSINOPHILS 0.00 0.00 - 0.40 x10'3/uL 06/07/2023 3:36 AM CODING ANALYST [facility] ABS. BASOPHILS 0.02 0.00 - 0.20 x10'3/uL 06/07/2023 3:36 AM CODING ANALYST [facility] ABS. IMMATURE GRANULOCYTES 0.04(H) 0.00 - 0.03 x10'3/uL 06/07/2023 3:36 AM CODING ANALYST [facility] ABS. NUCLEATED RBC'S 0.00 0.0 x10'3/uL 06/07/2023 3:36 AM CODING ANALYST [facility] 06/07/2023 3:10 AM CODING ANALYST Margaret GHOSHP LABORATORY Final Result [facility] [address] [place] [id number], [id number] * PROTIME/INR, VENOUS (06/07/2023 3:10 AM CODING ANALYST) PROTIME 12.5 9.4 - 12.5 SEC 06/07/2023 3:57 AM CODING ANALYST [facility] INR 1.1 0.8 - 1.1 06/07/2023 3:57 AM CODING ANALYST [facility] 06/07/2023 3:10 AM CODING ANALYST us Ahmet Levi MD LABORATORY Final Resul t Performing Organization Address [facility] Co de Phone Number [facility] [address] [place] [address], [phone] * (ABNORMAL) POCT glucose (06/06/2023 8:09 PM CODING ANALYST) GLUCOSE POC 155(H) 70 - 109 06/06/2023 8:18 PM CODING ANALYST [facility] 06/06/2023 8:09 PM CODING ANALYST us Ahmet Levi MD POCT ORDERABLES - DEVICE Fi nal Result Performing Organization Address [facility] de Phone Number [facility] [address] [place] [address], [place] [phone] * (ABNORMAL) POCT glucose (06/06/2023 4:36 PM CODING ANALYST) GLUCOSE POC 168(H) 70 - 109 06/06/2023 5:03 PM CODING ANALYST [facility] 06/06/2023 4:36 PM CODING ANALYST us Ahmet Levi MD POCT ORDERABLES - DEVICE Fi nal Result Performing Organization Address [facility] de Phone Number [facility] [address] [place] [address], [place] [phone] * (ABNORMAL) POCT glucose (06/06/2023 10:06 AM CODING ANALYST) GLUCOSE POC 111(H) 70 - 109 06/06/2023 10:09 AM CODING ANALYST [facility] 06/06/2023 10:0 6 AM CODING ANALYST us Ahmet Levi MD POCT ORDERABLES - DEVICE Fi nal Result Performing Organization Address [facility] Co de Phone Number [facility] [address] [place] [address], [phone] * (ABNORMAL) POCT glucose (06/06/2023 8:16 AM CODING ANALYST) GLUCOSE POC 120(H) 70 - 109 06/06/2023 8:31 AM CODING ANALYST [facility] 06/06/2023 8:16 AM CODING ANALYST Ahmet Levi MD POCT ORDERABLES - DEVICE Fi nal Result Performing Organization Address [facility] de Phone Number [facility] [address] [place] [address], [id number] * (ABNORMAL) POCT glucose (06/06/2023 6:54 AM CODING ANALYST) GLUCOSE POC 121(H) 70 - 109 06/06/2023 8:31 AM CODING ANALYST [facility] 06/06/2023 6:54 AM CODING ANALYST Ahmet Levi MD POCT ORDERABLES - DEVICE Fi nal Result Performing Organization Address [facility] de Phone Number [facility] [address] [place] [address], [phone] * ECG 12 lead (06/06/2023 5:28 AM CODING ANALYST) 06/06/2023 5:28 AM CODING ANALYST Narrative [facility] - 06/06/2023 1:23 PM CODING ANALYST ? [facility] ?[address] [place], [place] ??[address] ? Test Date: ?2023-06-06 Pat Name: ? KENDY SALCIDO ? Department: ?? 1 ? Room: ? [id number] Gender: ? Female ? 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 Requested By: AHMET LEVI Order Number: [id number] ? Reading MD: ?? Belinda Bocanegra ? Measurements Intervals ?[place] ? Rate: ? 80 ? P: ?58 AK: ? 116 ?QRS: ?23 QRSD: ? 91 ? T: ?59 QT: ? 404 ? QTc: ?468 ? 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: Blair : 1945 Requested By: AHMET LEVI Order Number: [id number] Reading MD: Belinda Bocanegra Measurements Intervals [place]ena Rate: 80 P: 58 AK: 116 QRS: 23 QRSD: 91 T: 59 QT: 404 QTc: 468 Interpretive Statements SINUS RHYTHM WITH SHORT AK INTERVAL NONSPECIFIC ST & T-WAVE ABNORMALITY NG ANALYST Ahmet Levi MD ECG ORDERABLES Final Resul t Performing Organization Address [facility] de Phone Number [facility] * (ABNORMAL) POCT glucose (06/06/2023 5:26 AM CODING ANALYST) Pathologist [facility] GLUCOSE POC 113(H) 70 - 109 06/06/2023 8:31 AM CODING ANALYST [facility] 06/06/2023 5:26 AM CODING ANALYST Ahmet Levi MD POCT ORDERABLES - DEVICE Fi nal Result Performing Organization Address [facility] de Phone Number [facility] [address] [place] [address], [phone] * XR CHEST PORTABLE (06/06/2023 5:11 AM CODING ANALYST) Anatomical Region Laterality Modality Chest Radiographic Fabiola ging 06/06/2023 5:34 AM CODING ANALYST Impressions 06/06/2023 5:37 AM CODING ANALYST IMPRESSION: 1. ??Removal of ET tube with the other tubes and lines remaining stable. 2. ??Minimal atelectasis in the lung bases with no other acute pulmonary disease. 3. ??Stable postoperative changes of CABG and stable vascular clip in the region of left atrial appendage. Referred By: ?? Interpreted By: Gita Ott MD, 06/06/2023 5:34 AM Narrative 06/06/2023 5:37 AM CODING ANALYST EXAMINATION: ??XR Portable CXR, 1 View INDICATION: ??Postop CABG x3, day 1. ??History of coronary artery disease. COMPARISON: 06/05/2023 FINDINGS: Interval removal of ET tube. ??Persistent right IJ central line and sheath with tip projected over the mid to distal superior vena cava. ??Persistent bilateral chest tubes and mediastinal drain. ??Cardiac monitoring leads again overlie the chest and abdomen. ??Stable postoperative changes of median sternotomy, CABG and stable vascular clip in the region of left atrial appendage. ??Stable calcified granulomas in the left hilum and left mid to lower lung. ??The cardiomediastinal silhouette is otherwise within normal limits. Pulmonary vascularity is normal. ??There is minimal atelectasis in bilateral lower lobes. ??Lungs are otherwise clear. ??There may be a trace left pleural effusion with no appreciable right-sided pleural effusion. ??No pneumothorax. 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 No acute osseous abnormality. Procedure Note Gita Ott MD - 06/06/2023 EXAMINATION: XR Portable CXR, 1 View INDICATION: Postop CABG x3, day 1. History of coronary artery disease. COMPARISON: 06/05/2023 FINDINGS: Interval removal of ET tube. Persistent right IJ central line and sheathwith tip projected over the mid to distal superior vena cava. Persistentbilateral chest tubes and mediastinal drain. Cardiac monitoring leadsagain overlie the chest and abdomen. Stable postoperative changes ofmedian sternotomy, CABG and stable vascular clip in the region of leftatrial appendage. Stable calcified granulomas in the left hilum and leftmid to lower lung. The cardiomediastinal silhouette is otherwise withinnormal limits. Pulmonary vascularity is normal. There is minimalatelectasis in bilateral lower lobes. Lungs are otherwise clear. Theremay be a trace left pleural effusion with no appreciable right-sidedpleural effusion. No pneumothorax. Stable asymmetric arthritic changesin the right shoulder. No acute osseous abnormality. IMPRESSION: 1. Removal of ET tube with the other tubes and lines remaining stable. 2. Minimal atelectasis in the lung bases with no other acute pulmonarydisease. 3. Stable postoperative changes of CABG and stable vascular clip in theregion of left atrial appendage. Referred By: Interpreted By: Gita Ott MD, 06/06/2023 5:34 AM Ahmet Levi MD GENERAL IMAGING Final Resul t * (ABNORMAL) POCT glucose (06/06/2023 4:20 AM CODING ANALYST) GLUCOSE POC 130(H) 70 - 109 06/06/2023 8:31 AM CODING ANALYST [facility] 06/06/2023 4:20 AM CODING ANALYST us Ahmet Levi MD POCT ORDERABLES - DEVICE Fi nal Result Performing Organization Address [facility] Co de Phone Number [facility] [address] [place] [address], [phone] * MAGNESIUM (06/06/2023 4:20 AM CODING ANALYST) MAGNESIUM 2.0 1.6 - 2.6 MG/DL 06/06/2023 4:58 AM CODING ANALYST [facility] 06/06/2023 4:20 AM CODING ANALYST us Ahmet Levi MD LABORATORY Final Resul t Performing Organization Address [facility] de Phone Number [facility] [address] [place] [address], [phone] * (ABNORMAL) PROTIME/INR, VENOUS (06/06/2023 4:20 AM CODING ANALYST) PROTIME 12.8(H) 9.4 - 12.5 SEC 06/06/2023 4:58 AM CODING ANALYST [facility] INR 1.1 0.8 - 1.1 06/06/2023 4:58 AM [facility] 06/06/2023 4:20 AM CODING ANALYST Ahmet Levi MD LABORATORY Final Resul t Performing Organization Address [facility] de Phone Number [facility] [address] [place] [address], [phone] * (ABNORMAL) BASIC METABOLIC PANEL (06/06/2023 4:20 AM CODING ANALYST) SODIUM S/P/B 143 136 - 145 MMOL/L 06/06/2023 4:58 AM [facility] POTASSIUM S/P/B 4.1 3.5 - 5.1 MMOL/L 06/06/2023 4:58 AM [facility] CHLORIDE S/P/B 114(H) 98 - 107 MMOL/L 06/06/2023 4:58 AM [facility] CO2 23.9 21.0 - 32.0 MMOL/L 06/06/2023 4:58 AM [facility] GLUCOSE 134(H) 74 - 106 MG/DL 06/06/2023 4:58 AM [facility] BUN 17 7 - 18 MG/DL 06/06/2023 4:58 AM [facility] CREATININE S/P/B 0.80 0.55 - 1.02 MG/DL 06/06/2023 4:58 AM CODING ANALYST [facility] CALCIUM S/P/B 8.4(L) 8.5 - 10.1 MG/DL 06/06/2023 4:58 AM CODING ANALYST [facility] ANION GAP 5.1 5.0 - 15.0 MMOL/L 06/06/2023 4:58 AM [facility] OSMOLALITY (CALC) 300 MOSM/KG 024 4:58 AM [facility] Comment:REFERENCE RANGE NOT ESTABLISHED GFR ESTIMATE 76(L) >90 ML/MIN/1. 73 M2 06/06/2023 4:58 AM [facility] GFR NOTES GFR REFERENCE S: 06/06/2023 4:58 AM [facility] Comment: THE ESTIMATED GFR IS CALCULATED [...] ml/min/1.73 m2 G5,KIDNEY FAILURE: <15 ml/min/1.73 m2 06/06/2023 4:20 AM CODING ANALYST Ahmet Levi MD LABORATORY Final Resul t [facility] [address] [place] [address], [phone] * (ABNORMAL) CBC W/DIFF AUTOMATED (06/06/2023 4:20 AM CODING ANALYST) WBC 10.14 4.00 - 10.80 x10'3/uL 06/06/2023 4:39 AM CODING ANALYST [facility] RBC 4.02(L) 4.10 - 5.40 x10'6/uL 06/06/2023 4:39 AM [facility] HGB 13.0 12.0 - 16.0 G/DL 06/06/2023 4:39 AM [facility] HCT 38.3 36.0 - 47.0 % 06/06/2023 4:39 AM [facility] MCV 95.3 78.0 - 100.0 FL 06/06/2023 4:39 AM [facility] MCH 32.3(H) 27.0 - 31.0 PG 06/06/2023 4:39 AM [facility] MCHC 33.9 33.0 - 36.0 G/DL 06/06/2023 4:39 AM [facility] RDW 15.1(H) 11.5 - 14.5 % 06/06/2023 4:39 AM [facility] PLT 129(L) 150 - 350 x10'3/uL 06/06/2023 4:39 AM [facility] MPV 10.5(H) 7.4 - 10.4 FL 06/06/2023 4:39 AM [facility] ABS. NEUTROPHILS 8.92(H) 1.60 - 8.30 x10'3/uL 06/06/2023 4:39 AM [facility] ABS. LYMPHOCYTES 0.41(L) 0.80 - 4.70 x10'3/uL 06/06/2023 4:39 AM [facility] ABS. MONOCYTES 0.76 0.00 - 1.50 x10'3/uL 06/06/2023 4:39 AM [facility] ABS. EOSINOPHILS 0.00 0.00 - 0.40 x10'3/uL 06/06/2023 4:39 AM [facility] ABS. BASOPHILS 0.01 0.00 - 0.20 x10'3/uL 06/06/2023 4:39 AM [facility] ABS. IMMATURE GRANULOCYTES 0.04(H) 0.00 - 0.03 x10'3/uL 06/06/2023 4:39 AM CODING ANALYST [facility] ABS. NUCLEATED RBC'S 0.00 0.0 x10'3/uL 06/06/2023 4:39 AM CODING ANALYST [facility] 06/06/2023 4:20 AM CODING ANALYST us Ahmet Levi MD LABORATORY Final Resul t Performing Organization Address [facility] de Phone Number [facility] [address] [place] [address], [phone] * (ABNORMAL) POCT glucose (06/06/2023 3:06 AM CODING ANALYST) GLUCOSE POC 117(H) 70 - 109 06/06/2023 8:31 AM CODING ANALYST [facility] 06/06/2023 3:06 AM CODING ANALYST us Ahmet Levi MD POCT ORDERABLES - DEVICE Fi nal Result Performing Organization Address [facility] de Phone Number [facility] [address] [place] [address], [place] [phone] * (ABNORMAL) POCT glucose (06/06/2023 2:02 AM CODING ANALYST) GLUCOSE POC 126(H) 70 - 109 06/06/2023 2:04 AM CODING ANALYST [facility] 06/06/2023 2:02 AM CODING ANALYST us Ahmet Levi MD POCT ORDERABLES - DEVICE Fi nal Result Performing Organization Address [facility] de Phone Number [facility] [address] [place] [id number], [id number] * (ABNORMAL) POCT glucose (06/06/2023 1:20 AM CODING ANALYST) GLUCOSE POC 132(H) 70 - 109 06/06/2023 2:04 AM CODING ANALYST [facility] 06/06/2023 1:20 AM CODING ANALYST us Ahmet Levi MD POCT ORDERABLES - DEVICE Fi nal Result Performing Organization Address [facility] Co de Phone Number [facility] [address] [place] [address], [phone] * (ABNORMAL) POCT glucose (06/06/2023 12:04 AM CODING ANALYST) GLUCOSE POC 129(H) 70 - 109 06/06/2023 2:04 AM CODING ANALYST [facility] 06/06/2023 12:0 4 AM CODING ANALYST us Ahmet Levi MD POCT ORDERABLES - DEVICE Fi nal Result Performing Organization Address [facility] de Phone Number [facility] [address] [place] [address], [phone] * (ABNORMAL) POCT glucose (06/05/2023 11:07 PM CODING ANALYST) GLUCOSE POC 123(H) 70 - 109 06/06/2023 2:04 AM CODING ANALYST [facility] 06/05/2023 11:0 7 PM CODING ANALYST us Ahmet eLvi MD POCT ORDERABLES - DEVICE Fi nal Result Performing Organization Address [facility] Co de Phone Number [facility] [address] [place] [address], [phone] * (ABNORMAL) POCT glucose (06/05/2023 10:14 PM CODING ANALYST) GLUCOSE POC 119(H) 70 - 109 06/06/2023 2:04 AM CODING ANALYST [facility] 06/05/2023 10:1 4 PM CODING ANALYST Ahmet Levi MD POCT ORDERABLES - DEVICE Fi nal Result [facility] [address] [place] [address], [phone] * (ABNORMAL) POCT ACUTE ARTERIAL PANEL (06/05/2023 9:11 PM CODING ANALYST) SODIUM WHOLE BLOOD 143 138 - 146 mmol/L 06/05/2023 9:14 PM [facility] POTASSIUM WHOLE BLOOD 4.3 3.5 - 4.9 mmol/L 06/05/2023 9:14 PM [facility] CA IONIZED WH BLOOD 1.27 1.12 - 1.32 mmol/L 06/05/2023 9:14 PM [facility] POC PH ARTERIAL 7.317(L) 7.35 - 7.45 06/05/2023 9:14 PM [facility] POC PCO2 ARTERIAL 44.6 35.0 - 45.0 MMHG 06/05/2023 9:14 PM [facility] POC PO2 ARTERIAL 168(H) 80 - 105 MMHG 06/05/2023 9:14 PM [facility] POC HCO3 ARTERIAL 22.8 22 - 26 MMOL/L 06/05/2023 9:14 PM [facility] POC TCO2 ARTERIAL 24 23 - 27 MMOL/L 06/05/2023 9:14 PM [facility] POC BASE DEFICIT ARTERIAL 3(H) 0 - 2 MMOL/L 06/05/2023 9:14 PM [facility] POC HEMATOCRIT 38 38 - 51 % 06/05/2023 9:14 PM [facility] TIME TEST WAS PERFORMED: 211006/05/2023 9:14 PM CODING ANALYST [facility] 06/05/2023 9:11 PM CODING ANALYST us Ahmet Levi MD POCT ORDERABLES - DEVICE Fi nal Result Performing Organization Address [facility] Co de Phone Number [facility] [address] [place] [address], [place] [phone] * (ABNORMAL) POCT glucose (06/05/2023 9:09 PM CODING ANALYST) GLUCOSE POC 135(H) 70 - 109 06/05/2023 9:14 PM CODING ANALYST [facility] 06/05/2023 9:09 PM CODING ANALYST us Ahmet Levi MD POCT ORDERABLES - DEVICE Fi nal Result Performing Organization Address [facility] Phone Number [facility] [address] [place] [address], [place] [phone] * (ABNORMAL) POCT glucose (06/05/2023 8:02 PM CODING ANALYST) GLUCOSE POC 137(H) 70 - 109 06/05/2023 9:14 PM CODING ANALYST [facility] 06/05/2023 8:02 PM CODING ANALYST us Ahmet Levi MD POCT ORDERABLES - DEVICE Fi nal Result Performing Organization Address [facility] Co de Phone Number [facility] [address] [place] [address], [place] [phone] * (ABNORMAL) POCT EG7 BLD GAS ARTERIAL TEMP TSERING (06/05/2023 7:03 PM CODING ANALYST) SODIUM WHOLE BLOOD 142 138 - 146 mmol/L 06/05/2023 9:14 PM CODING ANALYST [facility] POTASSIUM WHOLE BLOOD 4.4 3.5 - 4.9 mmol/L 06/05/2023 9:14 PM [facility] IONIZED WH BLOOD 1.28 1.12 - 1.32 mmol/L 06/05/2023 9:14 PM [facility] POC PH ARTERIAL 7.282(L) 7.35 - 7.45 06/05/2023 9:14 PM [facility] POC PCO2 ARTERIAL 48.3(H) 35.0 - 45.0 MMHG 06/05/2023 9:14 PM [facility] POC PO2 ARTERIAL 156(H) 80 - 105 MMHG 06/05/2023 9:14 PM [facility] POC HCO3 ARTERIAL 22.8 22 - 26 MMOL/L 06/05/2023 9:14 PM [facility] POC TCO2 ARTERIAL 24 23 - 27 MMOL/L 06/05/2023 9:14 PM [facility] POC BASE DEFICIT ARTERIAL 4(H) 0 - 2 MMOL/L 06/05/2023 9:14 PM [facility] TEMPERATURE 36.5 06/05/2023 9:14 PM [facility] P[facility] PH TEMP CORRECTED ARTERIAL 7.289(L) 7.35 - 7.45 06/05/2023 9:14 PM [facility] POC PCO2 TEMP TSERING ARTERIAL 47.3(H) 35.0 - 45.0 MMHG 06/05/2023 9:14 PM [facility] POC PO2 TEMP TSERING ARTERIAL 153(H) 80 - 105 MMHG 06/05/2023 9:14 PM [facility] POC HEMATOCRIT 39 38 - 51 % 06/05/2023 9:14 PM [facility] TIME TEST WAS PERFORMED: 190206/05/2023 9:14 PM [facility] 06/05/2023 7:03 PM CODING ANALYST Ahmet Levi MD POINT OF CARE TEST ORDERABL ES Final Result Performing Organization Address [facility] de Phone Number [facility] [address] [place] [address], [phone] * (ABNORMAL) POCT glucose (06/05/2023 7:01 PM CODING ANALYST) GLUCOSE POC 126(H) 70 - 109 06/05/2023 7:03 PM CODING ANALYST [facility] 06/05/2023 7:01 PM CODING ANALYST us Ahmet Levi MD POCT ORDERABLES - DEVICE Fi nal Result Performing Organization Address [facility] de Phone Number [facility] [address] [place] [address], [place] [phone] * (ABNORMAL) POCT glucose (06/05/2023 6:15 PM CODING ANALYST) GLUCOSE POC 126(H) 70 - 109 06/05/2023 7:03 PM CODING ANALYST [facility] 06/05/2023 6:15 PM CODING ANALYST us Ahmet Levi MD POCT ORDERABLES - DEVICE Fi nal Result Performing Organization Address [facility] de Phone Number [facility] [address] [place] [address], [phone] * (ABNORMAL) POCT ACUTE ARTERIAL PANEL (06/05/2023 5:33 PM CODING ANALYST) SODIUM WHOLE BLOOD 141 138 - 146 mmol/L 06/05/2023 5:35 PM CODING ANALYST [facility] POTASSIUM WHOLE BLOOD 3.7 3.5 - 4.9 mmol/L 06/05/2023 5:35 PM CODING ANALYST [facility] CA IONIZED WH BLOOD 1.29 1.12 - 1.32 mmol/L 06/05/2023 5:35 PM CODING ANALYST [facility] POC PH ARTERIAL 7.316(L) 7.35 - 7.45 06/05/2023 5:35 PM CODING ANALYST [facility] POC PCO2 ARTERIAL 45.1(H) 35.0 - 45.0 MMHG 06/05/2023 5:35 PM CODING ANALYST [facility] POC PO2 ARTERIAL 92 80 - 105 MMHG 06/05/2023 5:35 PM CODING ANALYST [facility] POC HCO3 ARTERIAL 23.0 22 - 26 MMOL/L 06/05/2023 5:35 PM CODING ANALYST [facility] POC TCO2 ARTERIAL 24 23 - 27 MMOL/L 06/05/2023 5:35 PM [facility] POC BASE DEFICIT ARTERIAL 3(H) 0 - 2 MMOL/L 06/05/2023 5:35 PM [facility] POC HEMATOCRIT 40 38 - 51 % 06/05/2023 5:35 PM [facility] TIME TEST WAS PERFORMED: 1733 06/05/2023 5:35 PM [facility] 06/05/2023 5:33 PM CODING ANALYST Ahmet Levi MD POCT ORDERABLES - DEVICE Fi nal Result [facility] [address] [place] [address], [phone] * (ABNORMAL) POCT ACUTE ARTERIAL PANEL (06/05/2023 5:08 PM CODING ANALYST) SODIUM WHOLE BLOOD 141 138 - 146 mmol/L 06/05/2023 5:35 PM CODING ANALYST [facility] POTASSIUM WHOLE BLOOD 3.5 3.5 - 4.9 mmol/L 06/05/2023 5:35 PM CODING ANALYST [facility] CA IONIZED WH BLOOD 1.28 1.12 - 1.32 mmol/L 06/05/2023 5:35 PM CODING ANALYST [facility] POC PH ARTERIAL 7.318(L) 7.35 - 7.45 06/05/2023 5:35 PM CODING ANALYST [facility] POC PCO2 ARTERIAL 45.0 35.0 - 45.0 MMHG 06/05/2023 5:35 PM CODING ANALYST [facility] POC PO2 ARTERIAL 155(H) 80 - 105 MMHG 06/05/2023 5:35 PM CODING ANALYST [facility] POC HCO3 ARTERIAL 23.1 22 - 26 MMOL/L 06/05/2023 5:35 PM CODING ANALYST [facility] POC TCO2 ARTERIAL 24 23 - 27 MMOL/L 06/05/2023 5:35 PM CODING ANALYST [facility] POC BASE DEFICIT ARTERIAL 3(H) 0 - 2 MMOL/L 06/05/2023 5:35 PM CODING ANALYST [facility] POC HEMATOCRIT 39 38 - 51 % 06/05/2023 5:35 PM [facility] TIME TEST WAS PERFORMED: 1708 06/05/2023 5:35 PM CODING ANALYST [facility] 06/05/2023 5:08 PM CODING ANALYST us Ahmet Levi MD POCT ORDERABLES - DEVICE Fi nal Result Performing Organization Address [facility] Co de Phone Number [facility] [address] [place] [address], [phone] * (ABNORMAL) POCT glucose (06/05/2023 5:05 PM CODING ANALYST) [facility] GLUCOSE POC 144(H) 70 - 109 06/05/2023 7:03 PM CODING ANALYST [facility] 06/05/2023 5:05 PM CODING ANALYST us Ahmet Levi MD POCT ORDERABLES - DEVICE Fi nal Result Performing Organization Address [facility] Co de Phone Number [facility] [address] [place] [address], [phone] * (ABNORMAL) POCT ACUTE ARTERIAL PANEL (06/05/2023 4:19 PM CODING ANALYST) SODIUM WHOLE BLOOD 139 138 - 146 mmol/L 06/05/2023 5:35 PM CODING ANALYST [facility] POTASSIUM WHOLE BLOOD 3.9 3.5 - 4.9 mmol/L 06/05/2023 5:35 PM CODING ANALYST [facility] CA IONIZED WH BLOOD 1.30 1.12 - 1.32 mmol/L 06/05/2023 5:35 PM CODING ANALYST [facility] POC PH ARTERIAL 7.294(L) 7.35 - 7.45 06/05/2023 5:35 PM CODING ANALYST [facility] POC PCO2 ARTERIAL 46.3(H) 35.0 - 45.0 MMHG 06/05/2023 5:35 PM CODING ANALYST [facility] POC PO2 ARTERIAL 137(H) 80 - 105 MMHG 06/05/2023 5:35 PM CODING ANALYST [facility] POC HCO3 ARTERIAL 22.5 22 - 26 MMOL/L 06/05/2023 5:35 PM CODING ANALYST [facility] POC TCO2 ARTERIAL 24 23 - 27 MMOL/L 06/05/2023 5:35 PM CODING ANALYST [facility] POC BASE DEFICIT ARTERIAL 4(H) 0 - 2 MMOL/L 06/05/2023 5:35 PM CODING ANALYST [facility] POC HEMATOCRIT 44 38 - 51 % 06/05/2023 5:35 PM [facility] TIME TEST WAS PERFORMED: 1619 06/05/2023 5:35 PM [facility] 06/05/2023 4:19 PM CODING ANALYST Ahmet Levi MD POCT ORDERABLES - DEVICE Fi nal Result [facility] [address] [place] [address], [phone] * (ABNORMAL) POCT glucose (06/05/2023 4:17 PM CODING ANALYST) Pathologist [facility] GLUCOSE POC 158(H) 70 - 109 06/05/2023 7:03 PM CODING ANALYST [facility] 06/05/2023 4:17 PM CODING ANALYST Ahmet Levi MD POCT ORDERABLES - DEVICE Fi nal Result [facility] [address] [place] [address], [phone] * (ABNORMAL) POCT ACUTE ARTERIAL PANEL (06/05/2023 3:04 PM CODING ANALYST) [facility] SODIUM WHOLE BLOOD 138 138 - 146 mmol/L 06/05/2023 3:19 PM [facility] POTASSIUM WHOLE BLOOD 4.1 3.5 - 4.9 mmol/L 06/05/2023 3:19 PM [facility] CA IONIZED WH BLOOD 1.31 1.12 - 1.32 mmol/L 06/05/2023 3:19 PM [facility] POC PH ARTERIAL 7.288(L) 7.35 - 7.45 06/05/2023 3:19 PM [facility] POC PCO2 ARTERIAL 47.8(H) 35.0 - 45.0 MMHG 06/05/2023 3:19 PM [facility] POC PO2 ARTERIAL 131(H) 80 - 105 MMHG 06/05/2023 3:19 PM [facility] POC HCO3 ARTERIAL 22.8 22 - 26 MMOL/L 06/05/2023 3:19 PM [facility] POC TCO2 ARTERIAL 24 23 - 27 MMOL/L 06/05/2023 3:19 PM [facility] POC BASE DEFICIT ARTERIAL 4(H) 0 - 2 MMOL/L 06/05/2023 3:19 PM [facility] POC HEMATOCRIT 42 38 - 51 % 06/05/2023 3:19 PM [facility] TIME TEST WAS PERFORMED: 1504 06/05/2023 3:19 PM CODING ANALYST [facility] 06/05/2023 3:04 PM CODING ANALYST Ahmet Levi MD POCT ORDERABLES - DEVICE Fi nal Result Performing Organization Address [facility] de Phone Number [facility] [address] [place] [address], [phone] * (ABNORMAL) POCT glucose (06/05/2023 3:02 PM CODING ANALYST) GLUCOSE POC 159(H) 70 - 109 06/05/2023 7:03 PM CODING ANALYST [facility] 06/05/2023 3:02 PM CODING ANALYST Ahmet Levi MD POCT ORDERABLES - DEVICE Fi nal Result Performing Organization Address [facility] de Phone Number [facility] [address] [place] [address], [phone] * USE TRANSESOPHAGEAL ECHO (06/05/2023 2:47 PM CODING ANALYST) Anatomical Region Laterality Modality Cardiac Echocardiogram 06/05/2023 7:37 AM CODING ANALYST Narrative 06/05/2023 3:14 PM CODING ANALYST ?Transesophageal Echocardiography Report Pat.Name: ??KENDY SALCIDO WILIAM ? Pat.ID: ?[id number] ? St.Date: ?? 06/05/2023 ? Refer.MD: ??GUERO ? Exam Time: 7:37:00 AM ? Study Type:TRANSESOPHAGEAL ECHO (MARIA ANTONIA) ??Age: ??1945,77Y ? Sex: ? F ? Sonogrphr: Streeter q ?Pat. Stat.:Inpatient ? CPT - 4: ?87523 [id number] ? Reason for Study:Coronary bypass surgery Procedures: 2D, Doppler, Color Flow, Intraoperative, Transesophageal Race: ?W ? ++++++++++++++++++++++++++++++++++++ SUMMARY: ++++++++++++++++++++++++++++++++++++ Pre-bypass Sinus rhythm LV size normal, systolic [...] flow, CWD and PWD used in exam ++++++++++++++++++++++++++++++++++++ FINDINGS: ++++++++++++++++++++++++++++++++++++ MARIA ANTONIA: ?The patient was counseled and an informed consent was ?obtained. The transesophageal probe was passed by ?anesthesia. Patient was under general anesthesia. Procedure ?was performed in the OR with anesthesia personnel present. ++++++++++++++++++++++++++++++++++++ MARIA ANTONIA: ++++++++++++++++++++++++++++++++++++ Comments: ??maria antonia probe 41 ? ++++++++++++++++++++++++++++++++++++ MEASUREMENTS: ++++++++++++++++++++++++++++++++++++ ?2D Left Ventricle ?? LV EF(Bi-Plane) ?56 % ?(55-75) Aorta ?? Ao Rtd ? 4.3 cm ? Ao Asc ? 3.3 cm ?? (2.1-3.4) LVOT ?? LVOT ? 2.3 cm ?DOPPLER LVOT ?? LVOTpkPG ? 1 mmHg ?LVOT TVI ?11.5 cm ?? LVOTpkVel ? 39.1 cm/s (70-110)* LVOT SV ? 48 ml ?? AV Forward Flow AV TVI ?19.7 cm ?AV pkPG ?2 mmHg AV pkVel ?76.6 cm/s (100-170)* Area (TVI) ?2.42 cm2 ??(3-5)* AV mnVel ?50 cm/s ?Area (Minesh) ?2.12 cm2 ??(3- 5)* AV mnPG ?1 mmHg ? MV Forward Flow MV mnPG ?2 mmHg ?MV pkPG ?3 mmHg AV DI ?? Value ?0.6 ? <Electronic Signature> 06/05/2023 03:14 PM Kenia Streeter M.D. Procedure Note Kenia Streeter MD,PHD - 06/05/2023 Transesophageal Echocardiography Report Pat.Name: KENDY SALCIDO Pat.ID: [id number] St.Date: 06/05/2023 Refer.: GUERO Exam Time: 7:37:00 AM Study Type:TRANSESOPHAGEAL ECHO (MARIA ANTONIA) Age: 8 1945,77Y Sex: F Sonogrphr: Ferdinand sumner Pat. Stat.:Inpatient CPT - 4: [id number] Reason for Study:Coronary bypass surgery Procedures: 2D, Doppler, Color Flow, Intraoperative, Transesophageal Race: W ++++++++++++++++++++++++++++++++++++ SUMMARY: ++++++++++++++++++++++++++++++++++++ Pre-bypass Sinus rhythm LV size normal, systolic [...] flow, CWD and PWD used in exam ++++++++++++++++++++++++++++++++++++ FINDINGS: ++++++++++++++++++++++++++++++++++++ MARIA ANTONIA: The patient was counseled and an informed consent was obtained. The transesophageal probe was passed by anesthesia. Patient was under general anesthesia. Procedure was performed in the OR with anesthesia personnel present. ++++++++++++++++++++++++++++++++++++ MARIA ANTONIA: ++++++++++++++++++++++++++++++++++++ Comments: maria antonia probe 41 ++++++++++++++++++++++++++++++++++++ MEASUREMENTS: ++++++++++++++++++++++++++++++++++++ 2D Left Ventricle LV EF(Bi-Plane) 56 % (55-75) Aorta Ao Rtd 4.3 cm Ao Asc 3.3 cm (2.1-3.4) LVOT LVOT 2.3 cm DOPPLER LVOT LVOTpkPG 1 mmHg LVOT TVI 11.5 cm LVOTpkVel 39.1 cm/s (70-110)* LVOT SV 48 ml AV Forward Flow AV TVI 19.7 cm AV pkPG 2 mmHg AV pkVel 76.6 cm/s (100-170)* Area (TVI) 2.42 cm2 (3-5)* AV mnVel 50 cm/s Area (Minesh) 2.12 cm2 (3-5)* AV mnPG 1 mmHg MV Forward Flow MV mnPG 2 mmHg MV pkPG 3 mmHg AV DI Value 0.6 <Electronic Signature> 06/05/2023 03:14 PM Kenia Streeter M.D. Result [facility] Ahmet Levi MD ECHO Final Resul t * TRANSFUSE RED BLOOD CELLS (06/05/2023 2:45 PM CODING ANALYST) Result [facility] Ahmet Levi MD NURSING TREATMENT ORDERABLE S - BLOOD ADMIN Final Result * TRANSFUSE RED BLOOD CELLS (06/05/2023 2:45 PM CODING ANALYST) Result [facility] Ahmet Levi MD NURSING TREATMENT ORDERABLE S - BLOOD ADMIN Final Result * TRANSFUSE RED BLOOD CELLS, 2 Units (06/05/2023 2:45 PM CODING ANALYST) Result [facility] Ahmet Levi MD NURSING TREATMENT ORDERABLE S - BLOOD ADMIN Final Result * (ABNORMAL) POCT ACUTE ARTERIAL PANEL (06/05/2023 2:05 PM CODING ANALYST) SODIUM WHOLE BLOOD 138 138 - 146 mmol/L 06/05/2023 3:19 PM CODING ANALYST [facility] POTASSIUM WHOLE BLOOD 4.1 3.5 - 4.9 mmol/L 06/05/2023 3:19 PM CODING ANALYST [facility] CA IONIZED WH BLOOD 1.36(H) 1.12 - 1.32 mmol/L 06/05/2023 3:19 PM CODING ANALYST [facility] POC PH ARTERIAL 7.254(L) 7.35 - 7.45 06/05/2023 3:19 PM CODING ANALYST [facility] POC PCO2 ARTERIAL 56.6(H) 35.0 - 45.0 MMHG 06/05/2023 3:19 PM CODING ANALYST [facility] POC PO2 ARTERIAL 121(H) 80 - 105 MMHG 06/05/2023 3:19 PM CODING ANALYST [facility] POC HCO3 ARTERIAL 25.1 22 - 26 MMOL/L 06/05/2023 3:19 PM CODING ANALYST [facility] POC TCO2 ARTERIAL 27 23 - 27 MMOL/L 06/05/2023 3:19 PM CODING ANALYST [facility] POC BASE DEFICIT ARTERIAL 2 0 - 2 MMOL/L 06/05/2023 3:19 PM CODING ANALYST [facility] POC HEMATOCRIT 40 38 - 51 % 06/05/2023 3:19 PM [facility] TIME TEST WAS PERFORMED: 1405 06/05/2023 3:19 PM CODING ANALYST [facility] 06/05/2023 2:05 PM CODING ANALYST us Ahmet Levi MD POCT ORDERABLES - DEVICE Fi nal Result Performing Organization Address [facility] de Phone Number [facility] [address] [place] [address], [phone] * (ABNORMAL) POCT glucose (06/05/2023 2:03 PM CODING ANALYST) [facility] GLUCOSE POC 140(H) 70 - 109 06/05/2023 7:03 PM CODING ANALYST [facility] 06/05/2023 2:03 PM CODING ANALYST us Ahmet Levi MD POCT ORDERABLES - DEVICE Fi nal Result Performing Organization Address [facility] Co de Phone Number [facility] [address] [place] [address], [phone] * ECG 12 lead (06/05/2023 1:42 PM CODING ANALYST) 06/05/2023 1:42 PM CODING ANALYST Narrative [facility] 06/05/2023 5:10 PM CODING ANALYST ? [facility] ?[address] [facility], [place] ??[address] ? Test Date: ?2023-06-05 Pat Name: ? KENDY SALCIDO ? Department: ?? 1 ? Room: ? [id number] Gender: ? Female ? 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 Requested By: AHMET LEVI Order Number: [id number] ? Reading MD: ?? Belinda Bocanegra ? Measurements Intervals ?Molena ? Rate: ? 54 ? P: ?63 AK: ? 140 ?QRS: ?78 QRSD: ? 94 ? T: ?68 QT: ? 488 ? QTc: ?463 ? 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 ??No acute findings. 2. ??Lines and tubes as described above. Ordered By: AHMET LEVI Interpreted By: Juanito Broderick MD, 06/05/2023 1:47 PM Narrative 06/05/2023 2:02 PM CODING ANALYST Examination: X-ray chest, 1 view Exam time: 06/05/2023 at 1325 hours Clinical history: Postop. Comparison: 06/04/2023 Technique: Single frontal upright view of the chest obtained. FINDINGS: Right jugular central venous catheter, projecting over superior vena cava. Endotracheal tube, 4 cm above loreta. Sternotomy wires. Left atrial appendage clip. Clips in the right lower lung. Right chest tube. Left chest tube. Calcified granuloma. No peripheral consolidation. No pneumothorax. No pleural effusion. Cardiomediastinal silhouette unchanged. Procedure Note Juanito Broderick MD - 06/05/2023 Examination: X-ray chest, 1 view Exam time: 06/05/2023 at 1325 hours Clinical history: Postop. Comparison: 06/04/2023 Technique: Single frontal upright view of the chest obtained. FINDINGS: Right jugular central venous catheter, projecting over superior vena cava.Endotracheal tube, 4 cm above loreta. Sternotomy wires. Left atrialappendage clip. Clips in the right lower lung. Right chest tube. Leftchest tube. Calcified granuloma. No peripheral consolidation. No pneumothorax. No pleural effusion.Cardiomediastinal silhouette unchanged. IMPRESSION: 1. No acute findings. 2. Lines and tubes as described above. Ordered By: AHMET LEVI Interpreted By: Juanito Broderick MD, 06/05/2023 1:47 PM Ahmet Levi MD GENERAL IMAGING Final Resul t * (ABNORMAL) POCT ACUTE ARTERIAL PANEL (06/05/2023 1:23 PM CODING ANALYST) SODIUM WHOLE BLOOD 138 138 - 146 mmol/L 06/05/2023 3:19 PM CODING ANALYST [facility] POTASSIUM WHOLE BLOOD 4.2 3.5 - 4.9 mmol/L 06/05/2023 3:19 PM CODING ANALYST [facility] CA IONIZED WH BLOOD 1.33(H) 1.12 - 1.32 mmol/L 06/05/2023 3:19 PM CODING ANALYST [facility] POC PH ARTERIAL 7.359 7.35 - 7.45 06/05/2023 3:19 PM [facility] POC PCO2 ARTERIAL 42.4 35.0 - 45.0 MMHG 06/05/2023 3:19 PM [facility] POC PO2 ARTERIAL 206(H) 80 - 105 MMHG 06/05/2023 3:19 PM [facility] POC HCO3 ARTERIAL 23.9 22 - 26 MMOL/L 06/05/2023 3:19 PM [facility] POC TCO2 ARTERIAL 25 23 - 27 MMOL/L 06/05/2023 3:19 PM [facility] POC BASE DEFICIT ARTERIAL 2 0 - 2 MMOL/L 06/05/2023 3:19 PM [facility] POC HEMATOCRIT 34(L) 38 - 51 % 06/05/2023 3:19 PM [facility] TIME TEST WAS PERFORMED: 1323 06/05/2023 3:19 PM [facility] 06/05/2023 1:23 PM CODING ANALYST us Ahmet Levi MD POCT ORDERABLES - DEVICE Fi nal Result [facility] [address] [place] [id number], [id number] * MAGNESIUM (06/05/2023 1:21 PM CODING ANALYST) MAGNESIUM 2.5 1.6 - 2.6 MG/DL 06/05/2023 2:05 PM CODING ANALYST [facility] Comment:RESULT QUESTIONABLE DUE TO HEMOLYSIS, CONSIDER RECOLLECTION. 06/05/2023 1:21 PM CODING ANALYST us Ahmet Levi MD LABORATORY Final Resul t Performing Organization Address [facility]/ZIP Co de Phone Number [facility] [address] [place] [address], [phone] * (ABNORMAL) POCT glucose (06/05/2023 1:20 PM CODING ANALYST) Pathologist [facility] GLUCOSE POC 120(H) 70 - 109 06/05/2023 7:03 PM CODING ANALYST [facility] 06/05/2023 1:20 PM CODING ANALYST us Ahmet Levi MD POCT ORDERABLES - DEVICE Fi nal Result Performing Organization Address [facility] Co de Phone Number [facility] [address] [place] [address], [phone] * (ABNORMAL) POCT ACUTE ARTERIAL PANEL (06/05/2023 12:38 PM CODING ANALYST) [facility] SODIUM WHOLE BLOOD 138 138 - 146 mmol/L 06/05/2023 1:35 PM CODING ANALYST [facility] POTASSIUM WHOLE BLOOD 4.6 3.5 - 4.9 mmol/L 06/05/2023 1:35 PM CODING ANALYST [facility] CA IONIZED WH BLOOD 1.44(H) 1.12 - 1.32 mmol/L 06/05/2023 1:35 PM CODING ANALYST [facility] POC PH ARTERIAL 7.326(L) 7.35 - 7.45 06/05/2023 1:35 PM CODING ANALYST [facility] POC PCO2 ARTERIAL 48.9(H) 35.0 - 45.0 MMHG 06/05/2023 1:35 PM CODING ANALYST [facility] POC PO2 ARTERIAL 437(H) 80 - 105 MMHG 06/05/2023 1:35 PM CODING ANALYST [facility] POC HCO3 ARTERIAL 25.5 22 - 26 MMOL/L 06/05/2023 1:35 PM CODING ANALYST [facility] POC TCO2 ARTERIAL 27 23 - 27 MMOL/L 06/05/2023 1:35 PM CODING ANALYST [facility] BASE EXCESS ARTERIAL 0 0 - 3 MMOL/L 06/05/2023 1:35 PM CODING ANALYST [facility] HEMATOCRIT 26(L) 38 - 51 % 06/05/2023 1:35 PM CODING ANALYST [facility] TIME TEST WAS PERFORMED: 1238 06/05/2023 1:35 PM CODING ANALYST [facility] 06/05/2023 12:3 8 PM CODING ANALYST us Ahmet Levi MD POCT ORDERABLES - DEVICE Fi nal Result Performing Organization Address [facility]/ZIP Co de Phone Number [facility] [address] [place] [address], [phone] * (ABNORMAL) POCT glucose (06/05/2023 12:36 PM CODING ANALYST) GLUCOSE POC 128(H) 70 - 109 06/05/2023 12:52 PM CODING ANALYST [facility] 06/05/2023 12:3 6 PM CODING ANALYST us Ahmet Levi MD POCT ORDERABLES - DEVICE Fi nal Result Performing Organization Address [facility] Co de Phone Number [facility] [address] [place] [address], [phone] * (ABNORMAL) POCT ACUTE ARTERIAL PANEL (06/05/2023 11:51 AM CODING ANALYST) SODIUM WHOLE BLOOD 134(L) 138 - 146 mmol/L 06/05/2023 1:35 PM CODING ANALYST [facility] POTASSIUM WHOLE BLOOD 5.8(H) 3.5 - 4.9 mmol/L 06/05/2023 1:35 PM CODING ANALYST [facility] CA IONIZED WH BLOOD 0.99(L) 1.12 - 1.32 mmol/L 06/05/2023 1:35 PM CODING ANALYST [facility] POC PH ARTERIAL 7.361 7.35 - 7.45 06/05/2023 1:35 PM CODING ANALYST [facility] PCO2 ARTERIAL 46.5(H) 35.0 - 45.0 MMHG 06/05/2023 1:35 PM [facility] PO2 ARTERIAL 315(H) 80 - 105 MMHG 06/05/2023 1:35 PM CODING ANALYST [facility] HCO3 ARTERIAL 26.3(H) 22 - 26 MMOL/L 06/05/2023 1:35 PM CODING ANALYST [facility] TCO2 ARTERIAL 28(H) 23 - 27 MMOL/L 06/05/2023 1:35 PM CODING ANALYST [facility] BASE EXCESS ARTERIAL 1 0 - 3 MMOL/L 06/05/2023 1:35 PM [facility] P[facility] HEMATOCRIT 21(L) 38 - 51 % 06/05/2023 1:35 PM CODING ANALYST [facility] TIME TEST WAS PERFORMED: 1151 06/05/2023 1:35 PM CODING ANALYST [facility] 06/05/2023 11:5 1 AM CODING ANALYST us Ahmet Levi MD POCT ORDERABLES - DEVICE Fi nal Result Performing Organization Address [facility] de Phone Number [facility] [facility] [address] [place] [address], [id number] * (ABNORMAL) POCT glucose (06/05/2023 11:49 AM CODING ANALYST) GLUCOSE POC 132(H) 70 - 109 06/05/2023 12:52 PM CODING ANALYST [facility] 06/05/2023 11:4 9 AM CODING ANALYST us Ahmet Levi MD POCT ORDERABLES - DEVICE Fi nal Result Performing Organization Address [facility] Co de Phone Number [facility] [address] [place] [phone], [id number] * (ABNORMAL) POCT ACUTE ARTERIAL PANEL (06/05/2023 11:31 AM CODING ANALYST) SODIUM WHOLE BLOOD 135(L) 138 - 146 mmol/L 06/05/2023 1:35 PM CODING ANALYST [facility] POTASSIUM WHOLE BLOOD 5.9(H) 3.5 - 4.9 mmol/L 06/05/2023 1:35 PM CODING ANALYST [facility] CA IONIZED WH BLOOD 0.94(L) 1.12 - 1.32 mmol/L 06/05/2023 1:35 PM CODING ANALYST [facility] POC PH ARTERIAL 7.423 7.35 - 7.45 06/05/2023 1:35 PM CODING ANALYST [facility] POC PCO2 ARTERIAL 37.5 35.0 - 45.0 MM[facility] 06/05/2023 1:35 PM CODING ANALYST [facility] POC PO2 ARTERIAL 397(H) 80 - 105 [facility] 06/05/2023 1:35 PM CODING ANALYST [facility] POC HCO3 ARTERIAL 24.5 22 - 26 MMOL/L 06/05/2023 1:35 PM CODING ANALYST [facility] POC TCO2 ARTERIAL 26 23 - 27 MMOL/L 06/05/2023 1:35 PM [facility] POC BASE EXCESS ARTERIAL 0 0 - 3 MMOL/L 06/05/2023 1:35 PM CODING ANALYST [facility] POC HEMATOCRIT 22(L) 38 - 51 % 06/05/2023 1:35 PM CODING ANALYST [facility] TIME TEST WAS PERFORMED: 1131 06/05/2023 1:35 PM CODING ANALYST [facility] 06/05/2023 11:3 1 AM CODING ANALYST Ahmet Levi MD POCT ORDERABLES - DEVICE Fi nal Result [facility] [address] [place] [address], [id number] * POCT glucose (06/05/2023 11:29 AM CODING ANALYST) [facility] GLUCOSE POC 106 70 - 109 06/05/2023 12:52 PM [facility] 06/05/2023 11:2 9 AM CODING ANALYST Ahmet Levi MD POCT ORDERABLES - DEVICE Fi nal Result [facility] [address] [place] [address], [id number] * (ABNORMAL) POCT ACUTE ARTERIAL PANEL (06/05/2023 11:12 AM CODING ANALYST) [facility] SODIUM WHOLE BLOOD 136(L) 138 - 146 mmol/L 06/05/2023 1:35 PM [facility] POTASSIUM WHOLE BLOOD 6.4(H) 3.5 - 4.9 mmol/L 06/05/2023 1:35 PM [facility] CA IONIZED WH BLOOD 0.88(L) 1.12 - 1.32 mmol/L 06/05/2023 1:35 PM [facility] POC PH ARTERIAL 7.506(H) 7.35 - 7.45 06/05/2023 1:35 PM [facility] POC PCO2 ARTERIAL 30.4(L) 35.0 - 45.0 MM[facility] 06/05/2023 1:35 PM CODING ANALYST [facility] POC PO2 ARTERIAL >450(H) 80 - 105 [facility] 06/05/2023 1:35 PM [facility] POC HCO3 ARTERIAL 24.0 22 - 26 MMOL/L 06/05/2023 1:35 PM [facility] POC TCO2 ARTERIAL 25 23 - 27 MMOL/L 06/05/2023 1:35 PM [facility] POC BASE EXCESS ARTERIAL 1 0 - 3 MMOL/L 06/05/2023 1:35 PM CODING ANALYST [facility] POC HEMATOCRIT 20(L) 38 - 51 % 06/05/2023 1:35 PM CODING ANALYST [facility] TIME TEST WAS PERFORMED: 1112 06/05/2023 1:35 PM CODING ANALYST [facility] 06/05/2023 11:1 2 AM CODING ANALYST us Ahmet Levi MD POCT ORDERABLES - DEVICE Fi nal Result Performing Organization Address [facility] Co de Phone Number [facility] [address] [place] [address], [phone] * (ABNORMAL) POCT glucose (06/05/2023 11:10 AM CODING ANALYST) GLUCOSE POC 111(H) 70 - 109 06/05/2023 12:52 PM CODING ANALYST [facility] 06/05/2023 11:1 0 AM CODING ANALYST us Ahmet Levi MD POCT ORDERABLES - DEVICE Fi nal Result Performing Organization Address [facility] de Phone Number [facility] [address] [place] [address], [phone] * (ABNORMAL) POCT ACUTE ARTERIAL PANEL (06/05/2023 10:32 AM CODING ANALYST) SODIUM WHOLE BLOOD 136(L) 138 - 146 mmol/L 06/05/2023 1:35 PM CODING ANALYST [facility] POTASSIUM WHOLE BLOOD 3.9 3.5 - 4.9 mmol/L 06/05/2023 1:35 PM CODING ANALYST [facility] CA IONIZED WH BLOOD 1.20 1.12 - 1.32 mmol/L 06/05/2023 1:35 PM CODING ANALYST [facility] POC PH ARTERIAL 7.331(L) 7.35 - 7.45 06/05/2023 1:35 PM CODING ANALYST [facility] POC PCO2 ARTERIAL 47.6(H) 35.0 - 45.0 [facility] 06/05/2023 1:35 PM CODING ANALYST [facility] POC PO2 ARTERIAL 280(H) 80 - 105 MM[facility] 06/05/2023 1:35 PM CODING ANALYST [facility] POC HCO3 ARTERIAL 25.2 22 - 26 MMOL/L 06/05/2023 1:35 PM CODING ANALYST [facility] POC TCO2 ARTERIAL 27 23 - 27 MMOL/L 06/05/2023 1:35 PM CODING ANALYST [facility] POC BASE DEFICIT ARTERIAL 1 0 - 2 MMOL/L 06/05/2023 1:35 PM CODING ANALYST [facility] POC HEMATOCRIT 28(L) 38 - 51 % 06/05/2023 1:35 PM CODING ANALYST [facility] TIME TEST WAS PERFORMED: 1032 06/05/2023 1:35 PM CODING ANALYST [facility] 06/05/2023 10:3 2 AM CODING ANALYST Ahmet Levi MD POCT ORDERABLES - DEVICE Fi nal Result Performing Organization Address [facility] Co de Phone Number [facility] [address] [place] [address], [id number] * POCT glucose (06/05/2023 10:30 AM CODING ANALYST) [facility] GLUCOSE POC 91 70 - 109 06/05/2023 12:52 PM CODING ANALYST [facility] 06/05/2023 10:3 0 AM CODING ANALYST us Ahmet Levi MD POCT ORDERABLES - DEVICE Fi nal Result Performing Organization Address [facility] Co de Phone Number [facility] [address] [place] [address], [id number] * (ABNORMAL) POCT ACUTE ARTERIAL PANEL (06/05/2023 7:15 AM CODING ANALYST) Pathologist [facility] SODIUM WHOLE BLOOD 137(L) 138 - 146 mmol/L 06/05/2023 1:35 PM CODING ANALYST [facility] POTASSIUM WHOLE BLOOD 3.9 3.5 - 4.9 mmol/L 06/05/2023 1:35 PM CODING ANALYST [facility] CA IONIZED WH BLOOD 1.22 1.12 - 1.32 mmol/L 06/05/2023 1:35 PM CODING ANALYST [facility] POC PH ARTERIAL 7.446 7.35 - 7.45 06/05/2023 1:35 PM CODING ANALYST [facility] POC PCO2 ARTERIAL 34.1(L) 35.0 - 45.0 MM[facility] 06/05/2023 1:35 PM CODING ANALYST [facility] POC PO2 ARTERIAL 275(H) 80 - 105 MM[facility] 06/05/2023 1:35 PM CODING ANALYST [facility] POC HCO3 ARTERIAL 23.5 22 - 26 MMOL/L 06/05/2023 1:35 PM CODING ANALYST [facility] POC TCO2 ARTERIAL 24 23 - 27 MMOL/L 06/05/2023 1:35 PM [facility] POC BASE DEFICIT ARTERIAL 1 0 - 2 MMOL/L 06/05/2023 1:35 PM [facility] POC HEMATOCRIT 33(L) 38 - 51 % 06/05/2023 1:35 PM [facility] TIME TEST WAS PERFORMED: 715 06/05/2023 1:35 PM [facility] 06/05/2023 7:15 AM CODING ANALYST Ahmet Levi MD POCT ORDERABLES - DEVICE Fi nal Result [facility] [address] [place] [address], [id number] * POCT glucose (06/05/2023 7:13 AM CODING ANALYST) Pathologist [facility] GLUCOSE POC 80 70 - 109 06/05/2023 12:52 PM CODING ANALYST [facility] 06/05/2023 7:13 AM CODING ANALYST us Ahmet Levi MD POCT ORDERABLES - DEVICE Fi nal Result Performing Organization Address [facility] Co de Phone Number [facility] [address] [place] [address], [id number] * MAGNESIUM (06/05/2023 5:43 AM CODING ANALYST) MAGNESIUM 1.9 1.6 - 2.6 MG/DL 06/05/2023 6:26 AM CODING ANALYST [facility] 06/05/2023 5:43 AM CODING ANALYST us Ahmet Levi MD LABORATORY Final Resul t Performing Organization Address [facility] de Phone Number [facility] [address] [place] [address], [phone] documented in this encounter Visit Diagnoses Diagnosis S/P 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 Maximum dose of acetaminophen is 4000 mg from all sources in 24 hours. acetaminophen (TYLENOL) tablet 650 mg 650 mg, Oral, Every 6 hours PRN, Mild pain (Scale 1 - 3), Fever, Starting on Sun06/05/23 at 1316, Until Sun06/11/23 at 1910, Maximum dose of acetaminophen is 4000 mg from all sources in 24 hours. albumin human 5 % solution 12.5 g 12.5 g, Intravenous, Once, 1 dose, On Sun06/05/23 at 1630, [employer] brand REQUIRES albumin tubing and filter. Other brands do NOT require tubing/filter. If container is glass, open line vent to administer. In emergencies, may administer as rapidly as necessary to improve clinical condition. After initial volume replacement: do not exceed 2 to 4 mL/min in patients with normal plasma volume New Bag 06/05/2023 4:36 PM CODING ANALYST 12.5 g amiodarone (CORDARONE) 150 mg in dextrose 5 % 100 mL IVPB bolus 150 mg, Intravenous, at 600 mL/hr, Once, 1 dose, On Sun06/08/23 at 1715, Patient must be on telemetry. New Bag 06/08/2023 5:20 PM CODING ANALYST 150 mg 600 mL/hr amiodarone (CORDARONE) 150 mg in dextrose 5 % 100 mL IVPB bolus 150 mg, Intravenous, at 600 mL/hr, Once, 1 dose, On Sun06/10/23 at 2045, Patient must be on telemetry. New Bag 06/10/2023 8:42 PM CODING ANALYST 150 mg 600 mL/hr amiodarone (CORDARONE) 450 mg in dextrose 5 % 250 mL infusion 0.5-1 mg/min (16.6667-33.3333 mL/hr, rounded to 16.67-33.33 mL/hr), Intravenous, Continuous, Starting on Sun06/08/23 at 1715, Until 06/09/23 at 1327, 33mL/hr (1mg/min) x 6hrs, then 17mL/hr (0.5mg/min) x18hrs. Patient must be on telemetry. Use 0.22 micron inline filter New Bag 06/09/2023 2:37 AM CODING ANALYST 0.5 mg/min 16.67 mL/hr New Bag 06/08/2023 5:29 PM CODING ANALYST 1 mg/min 33.33 mL/hr amiodarone (CORDARONE) 450 mg in dextrose 5 % 250 mL infusion 1 mg/min (33.3333 mL/hr, rounded to 33.3 mL/hr), Intravenous, Continuous, Starting on Sun06/10/23 at 2045, Until 06/11/23 at 0749, 33mL/hr (1mg/min) x 6hrs, then 17mL/hr (0.5mg/min) x18hrs. Patient must be on telemetry. Use 0.22 micron inline filter New Bag 06/11/2023 6:08 AM CODING ANALYST 0.5 mg/min 16.67 mL/hr Rate/Dose Change 06/11/2023 3:22 AM CODING ANALYST 0.51 mg/min 17 mL/ hr New Bag 06/10/2023 9:13 PM CODING ANALYST 1 mg/min 33.3 mL/hr amiodarone (PACERONE) tablet 400 mg 400 mg, Oral, 2 times daily, First dose on Sun06/09/23 at 1500, Until Discontinued Given 06/11/2023 9:27 AM CODING ANALYST 400 mg Given 06/10/2023 8:12 PM CODING ANALYST 400 mg Given 06/10/2023 8:45 AM CODING ANALYST 400 mg apixaban (ELIQUIS) tablet 5 mg 5 mg, Oral, 2 times daily, Indications: Atrial Fibrillation, First dose on Sun06/09/23 at 1130, Until DiscontinuedIndications:Atrial Fibrillation Given 06/09/2023 12:19 PM CODING ANALYST 5 mg apixaban (ELIQUIS) tablet 5 mg 5 mg, Oral, 2 times daily, Indications: Atrial Fibrillation, First dose on Sun06/10/23 at 0900, Until DiscontinuedIndications:Atrial Fibrillation Given 06/10/2023 8:45 AM CODING ANALYST 5 mg aspirin chewable tablet 81 mg 81 mg, Oral, Daily, First dose on Sun06/06/23 at 0900, Until Discontinued Given 06/11/2023 9:27 AM CODING ANALYST 81 mg Given 06/10/2023 8:45 AM CODING ANALYST 81 mg Given 06/09/2023 9:05 AM CODING ANALYST 81 mg atorvastatin (LIPITOR) tablet 80 mg 80 mg, Oral, Daily, First dose on Sun06/06/23 at 1030, Until Discontinued Given 06/11/2023 9:27 AM CODING ANALYST 80 mg Given 06/10/2023 8:45 AM CODING ANALYST 80 mg Given 06/09/2023 9:05 AM CODING ANALYST 80 mg benzocaine 20 % (HURRICAINE) mouth solution 2 spray 2 spray, Mouth/Throat, Every 1 hour PRN, Pain, Comfort, 4 doses, Starting on Sun06/05/23 at 1316, Until Sun06/08/23 at 1306, Maximum 8 sprays in 24 hours. Do NOT recommend use for teething & mouth pain in infants & children under 2 years., Post-Op Given 06/05/2023 3:11 P M CODING ANALYST 2 sprays bisacodyl (DULCOLAX) suppository 10 mg 10 mg, Rectal, Daily as needed, Constipation, Starting on Sun06/06/23 at 0552, Until Sun06/11/23 at 1910 bisacodyl EC (DULCOLAX) tablet 10 mg 10 mg, Oral, Daily as needed, Constipation, Starting on Sun06/06/23 at 0552, Until Sun06/11/23 at 1910, Do not break, chew, or crush. calcium citrate 950 (200 CA) MG tablet 1,900 mg 1,900 mg, Oral, Daily, First dose on Sun06/09/23 at 1300, Until Discontinued, 200 mg elemental calcium is equivalent to 950 mg calcium citrate Given 06/11/2023 9:27 AM CODING ANALYST 1,900 mg Given 06/10/2023 8:44 AM CODING ANALYST 1,900 mg Given 06/09/2023 1:30 PM CODING ANALYST 1,900 mg ceFAZolin (ANCEF) 2 g in sodium chloride 0.9 % 50 mL IVPB 2 g, Intravenous, at 100 mL/hr, Every 8 hours, 2 doses, First dose on Sun06/05/23 at 2000, Last dose on Sun06/06/23 at 0400, Give 2 gram dose for patients less than 120 kg. PHARMACY TO ADJUST administration times based on pre-op/intra-op dose. Do NOT continue greater than 24 hours after anesthesia end time., Post-Op Given 06/06/2023 4:23 AM CODING ANALYST 2 g 100 mL/hr Given 06/05/2023 7:56 PM CODING ANALYST 2 g 100 mL/hr chlorhexidine (PERIDEX) 0.12 % solution 15 mL 15 mL, Mouth/Throat, Once, 1 dose, On Sun06/05/23 at 0530, Patient to perform oral care first. Swish/gargle in mouth for 30 seconds, and then discard prior to going to surgery. If ventilated use saturated swab to clean oral cavity., Pre-Op Given 06/05/2023 5:27 AM CODING ANALYST 15 mLs clevidipine (CLEVIPREX) 25 MG/50ML infusion 1-21 mg/hr (2-42 mL/hr), Intravenous, Continuous, Starting on Sun06/06/23 at 0945, Until Sun06/07/23 at 0958, INITIAL RATE: 1 mg/hr TITRATE BY: Double drip rate every 90 seconds. Once BP approaches goal, slow titration rate to 1 mg/hr every 5 minutes GOAL: SBP between 100-160 mmHg MAXIMUM RATE: 21 mg/hr WEAN BY: 5 mg/hr every 5 minutes NOTIFY PROVIDER when rate reaches 16 mg/hr. NOTIFY PROVIDER if SBP less than 100 mmHg or HR less than 60 bpm - RAPIDLY WEAN DRIP RATE. SPECIAL INSTRUCTIONS: - Product expires 12 hours after vial is punctured; discard vial and tubing after 12 hours. - Monitor patient for rebound hypertension for at least 8 hours after discontinuation of infusion. - CONTRAINDICATED if patient is allergic to soy products or egg products or if patient has complications of hypertriglyceridemia (i.e. acute pancreatitis) or severe aortic stenosis. Patient must be on a clothes shaker. Rate/Dose Change 06/06/2023 5:11 PM CODING ANALYST 1 mg/hr 2 mL/hr Rate/Dose Change 06/06/2023 4:37 PM CODING ANALYST 2 mg/hr 4 mL/h r New Bag 06/06/2023 1:18 PM CODING ANALYST 3 mg/hr 6 mL/hr docusate sodium (COLACE) capsule 100 mg 100 mg, Oral, Daily, First dose on Sun06/06/23 at 0900, Until Discontinued Given 06/09/2023 9:05 AM CODING ANALYST 100 mg Given 06/08/2023 8:23 AM CODING ANALYST 100 mg Given 06/07/2023 9:07 AM CODING ANALYST 100 mg famotidine (PEPCID) tablet 20 mg 20 mg, Oral, Every 24 hours, First dose on Sun06/05/23 at 1330, Until Discontinued Given 06/11/2023 2:57 PM CODING ANALYST 20 mg Given 06/10/2023 1:58 PM CODING ANALYST 20 mg Given 06/09/2023 12:19 PM CODING ANALYST 20 mg famotidine (PF) (PEPCID) injection 20 mg 20 mg, Intravenous, Once, 1 dose, On Sun06/05/23 at 0600, IV Push over 2 minutes Given 06/05/2023 6:48 AM CODING ANALYST 20 m g famotidine (PF) (PEPCID) injection 20 mg 20 mg, Intravenous, Every 24 hours, First dose on Sun06/05/23 at 1330, Until Discontinued, Give if unable to take PO. IV Push over 2 minutes Given 06/06/2023 1:18 PM CODING ANALYST 20 mg Given 06/05/2023 3:11 PM CODING ANALYST 20 mg fentaNYL (SUBLIMAZE) injection 25 mcg 25 mcg, Intravenous, Every 1 hour PRN, Moderate pain (Scale 4 - 7), Starting on Sun06/05/23 at 1316, Until Sun06/11/23 at 1910, If intravenous (IV) route has been ordered, give over 1-2 minutes. Given 06/06/2023 8:24 AM CODING ANALYST 25 mcg Given 06/06/2023 5:56 AM CODING ANALYST 25 mcg fentaNYL (SUBLIMAZE) injection 50 mcg 50 mcg, Intravenous, Every 1 hour PRN, Severe pain (Scale 8 - 10), Starting on Sun06/05/23 at 1316, Until Sun06/11/23 at 1910, If intravenous (IV) route has been ordered, give over 1-2 minutes. Given 06/06/2023 1:16 AM CODING ANALYST 50 mcg Given 06/05/2023 7:50 PM CODING ANALYST 50 mcg Given 06/05/2023 3:28 PM CODING ANALYST 50 mcg furosemide (LASIX) injection 20 mg 20 mg, Intravenous, Once, 1 dose, On Sun06/06/23 at 1030, Administer IV push 20-40mg/min. Given 06/06/2023 11:15 AM CODING ANALYST 20 mg furosemide (LASIX) injection 20 mg 20 mg, Intravenous, Once, 1 dose, On Sun06/07/23 at 1015, Administer IV push 20-40mg/min. Given 06/07/2023 10:59 AM CODING ANALYST 20 mg furosemide (LASIX) injection 20 mg 20 mg, Intravenous, Daily, First dose on Sun06/07/23 at 1730, Until Discontinued, Administer IV push 20-40mg/min. Given 06/09/2023 9:05 AM CODING ANALYST 20 mg Given 06/08/2023 8:24 AM CODING ANALYST 20 mg Given 06/07/2023 5:48 PM CODING ANALYST 20 mg furosemide (LASIX) injection 20 mg 20 mg, Intravenous, 2 times daily, First dose on Sun06/11/23 at 0900, Until Discontinued, Administer IV push 20-40mg/min. Given 06/11/2023 9:28 AM CODING ANALYST 20 mg furosemide (LASIX) injection 40 mg 40 mg, Intravenous, Daily, First dose (after last modification) on Sun06/10/23 at 0900, Until Discontinued, Administer IV push 20-40mg/min. Given 06/10/2023 11:14 AM CODING ANALYST 40 mg heparin (porcine) injection 5,000 Units 5,000 Units, Subcutaneous, Every 8 hours scheduled (3 times per day), First dose on Sun06/07/23 at 2200, Until Discontinued Given 06/09/2023 5:13 AM CODING ANALYST 5,000 Units Left Arm Given 06/08/2023 8:37 PM CODING ANALYST 5,000 Units L eft Arm Given 06/08/2023 1:13 PM CODING ANALYST 5,000 Units R ight Lower Abdomen hydrALAZINE (APRESOLINE) tablet 25 mg 25 mg, Oral, Every 8 hours scheduled (3 times per day), First dose on Sun06/10/23 at 2200, Until Discontinued Given 06/11/2023 2:57 PM CODING ANALYST 25 mg Given 06/11/2023 6:11 AM CODING ANALYST 25 mg Given 06/10/2023 10:29 PM CODING ANALYST 25 mg insulin lispro (HUMALOG) injection 0-6 Units 0-6 Units, Subcutaneous, 4 times daily with meals and nightly, First dose on Sun06/08/23 at 1330, Until Discontinued, Administer correctional insulin according to all POC glucose measurement results Blood Glucose (Very Low Dose): (Less than 70: Initiate Hypoglycemia Treatment Orders) (70 - 130 0 units) (131- 180 1 units) (181- 240 2 units) (241- 300 3 units) (301- 350 4 units) (351- 400 5 units) (Greater than 400 6 units) Given 06/10/2023 10:28 PM CODING ANALYST 1 Units Right Lower Abdomen insulin lispro (HUMALOG) injection 0-8 Units 0-8 Units, Subcutaneous, 4 times daily before meals and nightly, First dose on Sun06/06/23 at 1100, Until Discontinued, From sliding scale insulin subcut med order set - For TDI 30 - 59 units Blood Glucose: (Less than 70: Initiate Hypoglycemia Standing Orders) (70 - 149, administer 0 units) (150 - 199, administer 2 units) (200 - 249, administer 3 units) (250 - 299, administer 5 units) (300 - 349, administer 7 units) (Greater than 349, administer 8 units and Call Physician) Given 06/07/2023 5:48 PM CODING ANALYST 2 Units Right Arm Given 06/06/2023 8:35 PM CODING ANALYST 2 Units Le ft Lower Abdomen Given 06/06/2023 5:06 PM CODING ANALYST 2 Units Le ft Arm insulin regular (MYXREDLIN) 1 unit/mL in NS 100 mL infusion (PREMIX) 0-9 Units/hr (0-9 mL/hr), Intravenous, Continuous, Starting on Sun06/05/23 at 1345, Until Sun06/06/23 at 1005, IV Insulin drip rate = (blood glucose result - low end of patient's goal range) X insulin intensity factor. Initial insulin intensity factor = 0.05 If patient diabetic and beginning glucose is greater than 150 mg/dL, start with intensity factor of 0.07. If patient diabetic and beginning glucose is greater than 160 mg/dL, start with intensity factor of 0.08. Keep glucose levels between 80 - 140 mg/dL. *High Alert* Rate/Dose Change 06/05/2023 11:05 PM CODING ANALYST 1 Units/hr 1 mL/hr Rate/Dose Change 06/05/2023 8:03 PM CODING ANALYST 1.5 Units/hr 1.5 m L/hr Rate/Dose Change 06/05/2023 6:16 PM CODING ANALYST 1 Units/hr 1 mL/hr ipratropium-albuterol (DUONEB) 0.5-2.5 (3) MG/3ML nebulizer solution 3 mL 3 mL, Nebulization, Every 4 hours, 12 doses, First dose on Sun06/05/23 at 1500, Last dose on Sun06/07/23 at 1100, Post-Op Given 06/07/2023 11:07 AM CODING ANALYST 3 mLs Given 06/07/2023 6:51 AM CODING ANALYST 3 mLs Given 06/07/2023 2:45 AM CODING ANALYST 3 mLs lidocaine 4 % patch 1 patch 1 patch, Transdermal, Administer over 12 Hours, Every 24 hours, First dose on Sun06/06/23 at 1400, Until Discontinued Patch Applied 06/10/2023 1:58 PM CODING ANALYST 1 patch Back Patch Applied 06/09/2023 12:20 PM CODING ANALYST 1 patch Back Patch Applied 06/08/2023 1:13 PM CODING ANALYST 1 patch Back magnesium oxide (MAG-OX) tablet 400 mg 400 mg, Oral, Daily, First dose on Sun06/09/23 at 1300, Until Discontinued Given 06/11/2023 9:28 AM CODING ANALYST 400 mg Given 06/10/2023 8:45 AM CODING ANALYST 400 mg Given 06/09/2023 1:30 PM CODING ANALYST 400 mg magnesium sulfate IVPB 2 g 2 g, Intravenous, at 25 mL/hr, Once, 1 dose, On Sun06/09/23 at 1300 New Bag 06/09/2023 1:30 PM CODING ANALYST 2 g 25 mL/hr rnrmijaul-xehejqzo-ndltgvyujwt ([place] MAXIMUM STRENGTH) 4296-8327-955 mg/30mL suspension 5 mL, Oral, Every 4 hours PRN, Indigestion, Starting on Sun06/06/23 at 0552, Until Sun06/11/23 at 1910, Shake Well metoclopramide (REGLAN) injection 10 mg 10 mg, Intravenous, Every 6 hours PRN, Vomiting, Nausea, Starting on Sun06/05/23 at 2045, Until Sun06/11/23 at 1910, Administer IV over 1-2 minutes Given 06/05/2023 9:12 PM CODING ANALYST 10 mg metoprolol succinate ER (TOPROL-XL) 24 hr tablet 25 mg 25 mg, Oral, 2 times daily, First dose on Sun06/08/23 at 2100, Until Discontinued, May be split in half along the tablet score line; do not chew or crush. Given 06/11/2023 9:28 AM CODING ANALYST 25 mg Given 06/10/2023 8:12 PM CODING ANALYST 25 mg Given 06/10/2023 8:44 AM CODING ANALYST 25 mg metoprolol tartrate (LOPRESSOR) tablet 25 mg 25 mg, Oral, 2 times daily, First dose on Sun06/06/23 at 1030, Until Discontinued, Hold HR<60, SBP < 100 mmHg Given 06/08/2023 8:24 AM CODING ANALYST 25 mg Given 06/07/2023 8:53 PM CODING ANALYST 25 mg Given 06/07/2023 9:07 AM CODING ANALYST 25 mg metoprolol tartrate (LOPRESSOR) tablet 25 mg 25 mg, Oral, Once, 1 dose, On Maria Luz 06/07/23 at 1115 Given 06/07/2023 11:00 AM CODING ANALYST 25 mg normal saline 0.9 % flush 3-10 mL 3-10 mL, Intravenous, Every 8 hours, First dose on Sun06/05/23 at 1345, Until Discontinued Given 06/11/2023 2:10 PM CODING ANALYST 10 mLs Given 06/10/2023 9:14 PM CODING ANALYST 3 mLs Given 06/10/2023 11:14 AM CODING ANALYST 10 mLs ondansetron (ZOFRAN) injection 4 mg 4 mg, Intravenous, Every 8 hours PRN, Nausea, Vomiting, Starting on Sun06/05/23 at 1316, Until Sun06/11/23 at 1910, IV push over 2-5 minutes. Given 06/11/2023 12:07 AM CODING ANALYST 4 mg Given 06/06/2023 5:06 PM CODING ANALYST 4 mg Given 06/06/2023 4:28 AM CODING ANALYST 4 mg oxyCODONE-acetaminophen (PERCOCET) 5-325 MG tablet 1 tablet 1 tablet, Oral, Every 4 hours PRN, Severe pain (Scale 8 - 10), Starting on Sun06/06/23 at 0552, Until Sun06/11/23 at 1910, Maximum dose of acetaminophen is 4000 mg from all sources in 24 hours. Given 06/10/2023 11:59 PM CODING ANALYST 1 tab let Given 06/09/2023 8:33 PM CODING ANALYST 1 tablet Given 06/09/2023 9:10 AM CODING ANALYST 1 tablet polyethylene glycol (GLYCOLAX) packet 17 g 17 g, Oral, Daily, First dose on Sun06/06/23 at 0900, Until Discontinued, Dissolve in 120-240mL of beverage Given 06/09/2023 9:05 AM CODING ANALYST 17 g Given 06/08/2023 8:23 AM CODING ANALYST 17 g Given 06/07/2023 9:07 AM CODING ANALYST 17 g potassium chloride 20 mEq in 50 mL IVPB 20 mEq, Intravenous, Administer over 60 Minutes, PRN, Potassium level is 3.3 to 3.9 mEq/L, Starting on Sun06/05/23 at 1316, Until Sun06/07/23 at 0958, May give every 1 hour as needed for potassium level. For CENTRAL line only, Post-Op New Bag 06/05/2023 6:13 PM CODING ANALYST 20 mEq 50 m L/hr potassium chloride CR (KLOR-CON M) tablet 20 mEq 20 mEq, Oral, Once, 1 dose, On Sun06/08/23 at 1815, Do not chew, crush, or suck on tablet. May break in half. May dissolve whole tablet in 120 mL of water and drink immediately. Given 06/08/2023 5:30 PM CODING ANALYST 20 mEq potassium chloride CR (KLOR-CON M) tablet 20 mEq 20 mEq, Oral, Daily, First dose on Sun06/08/23 at 2100, Until Discontinued, Do not chew, crush, or suck on tablet. May break in half. May dissolve whole tablet in 120 mL of water and drink immediately. Given 06/11/2023 9:28 AM CODING ANALYST 20 mEq Given 06/10/2023 8:45 AM CODING ANALYST 20 mEq Given 06/08/2023 8:38 PM CODING ANALYST 20 mEq potassium chloride CR (KLOR-CON M) tablet 40 mEq 40 mEq, Oral, Once, 1 dose, On Sun06/10/23 at 1130, Do not chew, crush, or suck on tablet. May break in half. May dissolve whole tablet in 120 mL of water and drink immediately. Given 06/10/2023 11:14 AM CODING ANALYST 40 mEq sacubitril-valsartan (ENTRESTO) 24-26 MG tablet 0.5 tablet 0.5 tablet, Oral, 2 times daily, First dose on Sun06/09/23 at 1130, Until Discontinued Given 06/09/2023 12:15 PM CODING ANALYST 0.5 tablets sacubitril-valsartan (ENTRESTO) 24-26 MG tablet 1 tablet 1 tablet, Oral, 2 times daily, First dose on Sun06/09/23 at 1300, Until Discontinued Given 06/11/2023 9:27 AM CODING ANALYST 1 tablet Given 06/10/2023 8:12 PM CODING ANALYST 1 tablet Given 06/10/2023 8:45 AM CODING ANALYST 1 tablet senna-docusate (SENOKOT-S) 8.6-50 MG tablet 1 tablet 1 tablet, Oral, 2 times daily, First dose on Sun06/06/23 at 0900, Until Discontinued Given 06/09/2023 9:05 A M CODING ANALYST 1 tablet Given 06/08/2023 8:38 PM CODING ANALYST 1 tablet Given 06/08/2023 8:23 AM CODING ANALYST 1 tablet sodium bicarbonate 8.4 % injection 25 mEq 25 mEq, Intravenous, Once, 1 dose, On Sun06/05/23 at 1630, Administer slowly over 5 minutes. Given 06/05/2023 4:30 PM CODING ANALYST 25 mEq spironolactone (ALDACTONE) Split tab 12.5 mg 12.5 mg, Oral, Daily, First dose on Sun06/10/23 at 0900, Until Discontinued, HAZARDOUS MEDICATION: wear single chemotherapy approved gloves. Do not open or split. If crushing, use approved closed-system crushing device for hazardous medications. Given 06/11/2023 9:29 AM CODING ANALYST 12.5 mg Given 06/10/2023 8:44 AM CODING ANALYST 12.5 mg traMADol (ULTRAM) tablet 100 mg 100 mg, Oral, Every 6 hours PRN, Other, Severe pain (Scale 8 - 10), Starting on Sun06/05/23 at 1316, Until Sun06/11/23 at 1910, after extubation and tolerating PO Given 06/06/2023 7:50 PM CODING ANALYST 100 mg traMADol (ULTRAM) tablet 50 mg 50 mg, Oral, Every 4 hours PRN, Moderate pain (Scale 4 - 7), after extubation and tolerating PO, Starting on Sun06/05/23 at 1316, Until Sun06/11/23 at 1910 Given 06/07/2023 6:02 AM CODING ANALYST 50 mg Given 06/06/2023 11:56 AM CODING ANALYST 50 mg Given 06/06/2023 5:57 AM CODING ANALYST 50 mg vitamin B-12 (CYANOCOBALAMIN) tablet 500 mcg 500 mcg, Oral, Daily, First dose on Sun06/06/23 at 1030, Until Discontinued Given 06/11/2023 9:28 AM CODING ANALYST 500 mcg Given 06/10/2023 8:45 AM CODING ANALYST 500 mcg Given 06/09/2023 9:05 AM CODING ANALYST 500 mcg vitamin C (ASCORBIC ACID) tablet 1,000 mg 1,000 mg, Oral, Daily, First dose on Sun06/06/23 at 1030, Until Discontinued Given 06/11/2023 9:28 AM CODING ANALYST 1,000 mg Given 06/10/2023 8:44 AM CODING ANALYST 1,000 mg Given 06/09/2023 9:05 AM CODING ANALYST 1,000 mg vitamin D3 (cholecalciferol) tablet 50 mcg 50 mcg, Oral, Daily, First dose on 06/09/23 at 1300, Until Discontinued Given 06/11/2023 9:27 AM CODING ANALYST 50 mcg Given 06/10/2023 8:45 AM CODING ANALYST 50 mcg Given 06/09/2023 1:30 PM CODING ANALYST 50 mcg vitamin E capsule 400 Units 400 Units, Oral, Daily, First dose on 06/09/23 at 1300, Until Discontinued Given 06/11/2023 9:27 AM CODING ANALYST 400 Unit s Given 06/10/2023 8:45 AM CODING ANALYST 400 Units Given 06/09/2023 1:30 PM CODING ANALYST 400 Units warfarin (COUMADIN) tablet 5 mg 5 mg, Oral, Daily (warfarin), First dose on 06/10/23 at 1700, Until Discontinued, HAZARDOUS MEDICATION: wear single chemotherapy approved gloves. Do not open or split. If crushing, use approved closed-system crushing device for hazardous medications. Given 06/10/2023 4:15 PM CODING ANALYST 5 mg documented in this encounter Active and Recently Administered Medications Times are shown in CODING ANALYST. Scheduled Medication Order 06/09/2023 06/10/2023 06/11/2023 amiodarone (CORDARONE) 150 mg in dextrose 5 % 100 mL IVPB bolus (COMPLETED) 150 mg, Intravenous, at 600 mL/hr, Once, 1 dose, On 06/10/23 at 2044, Patient must be on telemetry. 2041 (New Bag - Provider: Braydon Ngo RN)2109 (Infusion Stop Time - Provider: Braydon Ngo RN) amiodarone (PACERONE) tablet 400 mg 400 mg, Oral, 2 times daily, First dose on 06/09/23 at 1500, Until Discontinued 1499 (Given - Provider: Eagle Lai RN) 08 (Given - Provider: Eagle Lai RN)2011 (Given - Provider: Braydon Ngo RN - Comment: BP: 135/88HR: 170) 926 (Given - Provider: Monica Sierra RN) apixaban (ELIQUIS) tablet 5 mg (CANCELED) 5 mg, Oral, 2 times daily, Indications: Atrial Fibrillation, First dose on Sun06/09/23 at 1130, Until Discontinued 1219 (Given - Provider: Eagle Lai RN) apixaban (ELIQUIS) tablet 5 mg (CANCELED) 5 mg, Oral, 2 times daily, Indications: Atrial Fibrillation, First dose on Sun06/10/23 at 0900, Until Discontinued 0845 (Given - Provider: Eagle Lai RN) aspirin chewable tablet 81 mg 81 mg, Oral, Daily, First dose on Sun06/06/23 at 0900, Until Discontinued 09 (Given - Provider: Eagle Lai RN) 0845 (Given - Provider: Eagle Lai RN) 0927 (Given - Provider: Monica Sierra RN) atorvastatin (LIPITOR) tablet 80 mg 80 mg, Oral, Daily, First dose on Sun06/06/23 at 1030, Until Discontinued 09 (Given - Provider: Eagle Lai RN) 0845 (Given - Provider: Eagle Lai RN) 0927 (Given - Provider: Monica Sierra RN) calcium citrate 950 (200 CA) MG tablet 1,900 mg 1,900 mg, Oral, Daily, First dose on Sun06/09/23 at 1300, Until Discontinued, 200 mg elemental calcium is equivalent to 950 mg calcium citrate 1330 (Given - Provider: Eagle Lai RN) 0844 (Given - Provider: Eagel Lai RN) 0927 (Given - Provider: Monica Sierra RN) docusate sodium (COLACE) capsule 100 mg 100 mg, Oral, Daily, First dose on Sun06/06/23 at 0900, Until Discontinued 09 (Given - Provider: Eagle Lai RN) 0845 (Not Given - Provider: Eagle Lai RN - Reason: Patient/family declined) 0929 (Not Given - Provider: Monica Sierra RN - Reason: Patient/family declined) famotidine (PEPCID) tablet 20 mg(Linked Group 1) 20 mg, Oral, Every 24 hours, First dose on Sun06/05/23 at 1330, Until Discontinued 1219 (Given - Provider: Eagle Lai RN) 1358 (Given - Provider: Eagle Lai RN) 1457 (Given - Provider: Monica Sierra RN) famotidine (PF) (PEPCID) injection 20 mg(Linked Group 1) 20 mg, Intravenous, Every 24 hours, First dose on Sun06/05/23 at 1330, Until Discontinued, Give if unable to take PO. IV Push over 2 minutes 1219 (See Alternative - Provider: Eagle Lai RN) 1358 (See Alternative - Provider: Eagle Lai RN) 1457 (See Alternative - Provider: Monica Sierra RN) furosemide (LASIX) injection 20 mg (CANCELED) 20 mg, Intravenous, Daily, First dose on Sun06/07/23 at 1730, Until Discontinued, Administer IV push 20-40mg/min. 0905 (Given - Provider: Eagle Lai RN) furosemide (LASIX) injection 20 mg 20 mg, Intravenous, 2 times daily, First dose on Sun06/11/23 at 0900, Until Discontinued, Administer IV push 20-40mg/min. 0928 (Given - Provider: Monica Sierra RN)1700 (Canceled Entry - Provider: Automatic Discharge Provider - Comment: Automatically canceled at discontinue of medication order) furosemide (LASIX) injection 40 mg (CANCELED) 40 mg, Intravenous, Daily, First dose (after last modification) on Sun06/10/23 at 0900, Until Discontinued, Administer IV push 20-40mg/min. 1114 (Given - Provider: Eagle Lai RN) heparin (porcine) injection 5,000 Units (CANCELED) 5,000 Units, Subcutaneous, Every 8 hours scheduled (3 times per day), First dose on Sun06/07/23 at 2200, Until Discontinued 05 (Given - Provider: Braydon Ngo RN) hydrALAZINE (APRESOLINE) tablet 25 mg 25 mg, Oral, Every 8 hours scheduled (3 times per day), First dose on Sun06/10/23 at 2200, Until Discontinued 222 (Given - Provider: Braydon Ngo RN - Comment: BP: 135/88HR: 154) 0611 (Given - Provider: Braydon Ngo RN - Comment: BP: 119/52HR: 71)1457 (Given - Provider: Monica Sierra RN) insulin lispro (HUMALOG) injection 0-6 Units 0-6 Units, Subcutaneous, 4 times daily with meals and nightly, First dose on Sun06/08/23 at 1330, Until Discontinued, Administer correctional insulin according to all POC glucose measurement results Blood Glucose (Very Low Dose): (Less than 70: Initiate Hypoglycemia Treatment Orders) (70 - 130 0 units) (131- 180 1 units) (181- 240 2 units) (241- 300 3 units) (301- 350 4 units) (351- 400 5 units) (Greater than 400 6 units) 0553 (Not Given - Provider: Braydon Ngo RN - Reason: Order parameters not met)1213 (Not Given - Provider: Eagle Lai RN - Reason: Order parameters not met)1704 (Not Given - Provider: Eagle Lai RN - Reason: Order parameters not met)2100 (Not Given - Provider: Braydon Ngo RN - Reason: Order parameters not met - Comment: B) 0838 (Not Given - Provider: Eagle Lai RN - Reason: Order parameters not met)1257 (Not Given - Provider: Eagle Lai RN - Reason: Order parameters not met)1658 (Not Given - Provider: Eagle Lai RN - Reason: Order parameters not met)2228 (Given - Provider: Braydon Ngo RN - Comment: B) 0928 (Not Given - Provider: Monica Sierra RN - Reason: Order parameters not met)1320 (Not Given - Provider: Monica Sierra RN - Reason: Order parameters not met)1700 (Canceled Entry - Provider: Automatic Discharge Provider - Comment: Automatically canceled at discontinue of medication order) lidocaine 4 % patch 1 patch 1 patch, Transdermal, Administer over 12 Hours, Every 24 hours, First dose on Sun06/06/23 at 1400, Until Discontinued 0100 (Patch Removed - Provider: Braydon Ngo RN)1220 (Patch Applied - Provider: Eagle Lai RN) 0030 (Patch Removed - Provider: Braydon Ngo RN)1358 (Patch Applied - Provider: Eagle Lai RN) 0324 (Patch Removed - Provider: Braydon Ngo RN)1458 (Not Given - Provider: Monica Sierra RN - Reason: Patient/family declined) magnesium oxide (MAG-OX) tablet 400 mg 400 mg, Oral, Daily, First dose on Sun06/09/23 at 1300, Until Discontinued 1330 (Given - Provider: Eagle Lai RN) 0845 (Given - Provider: Eagle Lai RN) 0928 (Given - Provider: Monica Sierra RN) magnesium sulfate IVPB 2 g (COMPLETED) 2 g, Intravenous, at 25 mL/hr, Once, 1 dose, On 06/09/23 at 1300 1330 (New Bag - Provider: Eagle Lai RN)1530 (Infusion Stop Time - Provider: Eagle Lai RN) metoprolol succinate ER (TOPROL-XL) 24 hr tablet 25 mg 25 mg, Oral, 2 times daily, First dose on Sun06/08/23 at 2100, Until Discontinued, May be split in half along the tablet score line; do not chew or crush. 09 (Given - Provider: Eagle Lai RN)2032 (Given - Provider: Braydon Ngo RN - Comment: BP: 152/62HR: 80) 0844 (Given - Provider: Eagle Lai RN)2011 (Given - Provider: Braydon Ngo RN - Comment: BP: 135/88HR: 170) 0928 (Given - Provider: Monica Sierra, SARAH) normal saline 0.9 % flush 3-10 mL 3-10 mL, Intravenous, Every 8 hours, First dose on Sun06/05/23 at 1345, Until Discontinued 0552 (Not Given - Provider: Braydon Ngo RN - Reason: Patient sleeping)1220 (Given - Provider: Eagle Lai RN)2034 (Given - Provider: Braydon Ngo RN) 0537 (Not Given - Provider: Braydon Ngo RN - Reason: Patient sleeping)1114 (Given - Provider: Eagle Lai RN)211 (Given - Provider: Braydon T Blumenkemper, RN) 0536 (Not Given - Provider: Braydon Ngo RN - Reason: Patient sleeping)1410 (Given - Provider: Monica Sierra RN) polyethylene glycol (GLYCOLAX) packet 17 g 17 g, Oral, Daily, First dose on Sun06/06/23 at 0900, Until Discontinued, Dissolve in 120-240mL of beverage 0905 (Given - Provider: Eagle Lai RN) 0845 (Not Given - Provider: Eagle Lai RN - Reason: Patient/family declined) 09 (Not Given - Provider: Monica Sierra RN - Reason: Patient/family declined) potassium chloride CR (KLOR-CON M) tablet 20 mEq 20 mEq, Oral, Daily, First dose on Sun06/08/23 at 2100, Until Discontinued, Do not chew, crush, or suck on tablet. May break in half. May dissolve whole tablet in 120 mL of water and drink immediately. 0845 (Given - Provider: Eagle Lai RN) 09 (Given - Provider: Monica Sierra RN) potassium chloride CR (KLOR-CON M) tablet 40 mEq (COMPLETED) 40 mEq, Oral, Once, 1 dose, On 06/10/23 at 1130, Do not chew, crush, or suck on tablet. May break in half. May dissolve whole tablet in 120 mL of water and drink immediately. 1114 (Given - Provider: Eagle Lai RN) sacubitril-valsartan (ENTRESTO) 24-26 MG tablet 0.5 tablet (CANCELED) 0.5 tablet, Oral, 2 times daily, First dose on 06/09/23 at 1130, Until Discontinued 1215 (Given - Provider: Eagle Lai RN) sacubitril-valsartan (ENTRESTO) 24-26 MG tablet 1 tablet 1 tablet, Oral, 2 times daily, First dose on 06/09/23 at 1300, Until Discontinued 1254 (Not Given - Provider: Eagle Lai RN - Reason: Patient already took)2034 (Given - Provider: Braydon Ngo RN - Comment: BP: 152/62HR: 80) 0845 (Given - Provider: Eagle Lai RN)2011 (Given - Provider: Braydon Ngo RN - Comment: BP: 135/88HR: 170) 926 (Given - Provider: Monica Sierra RN) senna-docusate (SENOKOT-S) 8.6-50 MG tablet 1 tablet 1 tablet, Oral, 2 times daily, First dose on Sun06/06/23 at 0900, Until Discontinued 904 (Given - Provider: Eagle Lai RN)2032 (Not Given - Provider: Braydon Ngo RN - Reason: Contraindicated - Comment: 4 loose stools today) 844 (Not Given - Provider: aEgle Lai RN - Reason: Patient/family declined)2231 (Not Given - Provider: Braydon Ngo RN - Reason: Contraindicated - Comment: loose stools) 928 (Not Given - Provider: Monica Sierra RN - Reason: Patient/family declined) spironolactone (ALDACTONE) Split tab 12.5 mg 12.5 mg, Oral, Daily, First dose on Sun06/10/23 at 0900, Until Discontinued, HAZARDOUS MEDICATION: wear single chemotherapy approved gloves. Do not open or split. If crushing, use approved closed-system crushing device for hazardous medications. 843 (Given - Provider: Eagle Lai RN) 928 (Given - Provider: Monica Sierra RN) vitamin B-12 (CYANOCOBALAMIN) tablet 500 mcg 500 mcg, Oral, Daily, First dose on Sun06/06/23 at 1030, Until Discontinued 904 (Given - Provider: Eagle Lai RN) 844 (Given - Provider: Eagle Lai RN) 927 (Given - Provider: Monica Sierra, SARAH) vitamin C (ASCORBIC ACID) tablet 1,000 mg 1,000 mg, Oral, Daily, First dose on Sun06/06/23 at 1030, Until Discontinued 904 (Given - Provider: Eagle Lai RN) 08 (Given - Provider: Eagle Lai RN) 927 (Given - Provider: Monica Sierra RN) vitamin D3 (cholecalciferol) tablet 50 mcg 50 mcg, Oral, Daily, First dose on Sun06/09/23 at 1300, Until Discontinued 1330 (Given - Provider: Roel Ming, RN) 0845 (Given - Provider: Eagle Lai RN) 09 (Given - Provider: Monica Sierra, RN) vitamin E capsule 400 Units 400 Units, Oral, Daily, First dose on 06/09/23 at 1300, Until Discontinued 1330 (Given - Provider: Eagle Lai RN) 0845 (Given - Provider: Eagle Lai RN) 09 (Given - Provider: Monica Sierra, SARAH) warfarin (COUMADIN) tablet 5 mg (CANCELED) 5 mg, Oral, Daily (warfarin), First dose on 06/10/23 at 1700, Until Discontinued, HAZARDOUS MEDICATION: wear single chemotherapy approved gloves. Do not open or split. If crushing, use approved closed-system crushing device for hazardous medications. 1615 (Given - Provider: Eagle Lai RN) Continuous Medication Order 06/09/2023 06/10/2023 06/11/2023 amiodarone (CORDARONE) 450 mg in dextrose 5 % 250 mL infusion (CANCELED) 0.5-1 mg/min (16.6667-33.3333 mL/hr, rounded to 16.67-33.33 mL/hr), Intravenous, Continuous, Starting on Sun06/08/23 at 1715, Until 06/09/23 at 1327, 33mL/hr (1mg/min) x 6hrs, then 17mL/hr (0.5mg/min) x18hrs. Patient must be on telemetry. Use 0.22 micron inline filter 0237 (New Bag - Provider: Michael Vale RN) amiodarone (CORDARONE) 450 mg in dextrose 5 % 250 mL infusion (CANCELED) 1 mg/min (33.3333 mL/hr, rounded to 33.3 mL/hr), Intravenous, Continuous, Starting on 06/10/23 at 2045, Until 06/11/23 at 0749, 33mL/hr (1mg/min) x 6hrs, then 17mL/hr (0.5mg/min) x18hrs. Patient must be on telemetry. Use 0.22 micron inline filter 2113 (New Bag - Provider: Braydon Ngo RN) 0322 (Rate/Dose Change - Provider: Braydon Ngo RN)0608 (New Bag - Provider: Braydon Ngo RN)0991 (Infusion Stop Time - Provider: Monica Sierra RN) PRN Medication Order 06/09/2023 06/10/2023 06/11/2023 acetaminophen (TYLENOL) suppository 650 mg(Linked Group 2) 650 mg, Rectal, Every 6 hours PRN, Mild pain (Scale 1 - 3), Fever, Starting on Sun06/05/23 at 1316, Until Sun06/11/23 at 1910, Give if unable to take PO. Maximum dose of acetaminophen is 4000 mg from all sources in 24 hours. acetaminophen (TYLENOL) tablet 650 mg(Linked Group 2) 650 mg, Oral, Every 6 hours PRN, Mild pain (Scale 1 - 3), Fever, Starting on Sun06/05/23 at 1316, Until Sun06/11/23 at 1910, Maximum dose of acetaminophen is 4000 mg from all sources in 24 hours. bisacodyl (DULCOLAX) suppository 10 mg 10 mg, Rectal, Daily as needed, Constipation, Starting on Sun06/06/23 at 0552, Until Sun06/11/23 at 1910 bisacodyl EC (DULCOLAX) tablet 10 mg 10 mg, Oral, Daily as needed, Constipation, Starting on Sun06/06/23 at 0552, Until Sun06/11/23 at 1910, Do not break, chew, or crush. fentaNYL (SUBLIMAZE) injection 25 mcg 25 mcg, Intravenous, Every 1 hour PRN, Moderate pain (Scale 4 - 7), Starting on Sun06/05/23 at 1316, Until Sun06/11/23 at 1910, If intravenous (IV) route has been ordered, give over 1-2 minutes. fentaNYL (SUBLIMAZE) injection 50 mcg 50 mcg, Intravenous, Every 1 hour PRN, Severe pain (Scale 8 - 10), Starting on Sun06/05/23 at 1316, Until Sun06/11/23 at 1910, If intravenous (IV) route has been ordered, give over 1-2 minutes. magnesium sulfate 4 GM/100ML infusion 4 g 4 g, Intravenous, PRN, Magnesium levels less than 2 mg/dL, Starting on Sun06/05/23 at 1316, Until Sun06/11/23 at 191, May give every 4 hours as needed for magnesium level. qgalebnuh-vlhhcskz-otgug hicone (MYLANTA MAXIMUM STRENGTH) 7466-4678-404 mg/30mL suspension 5 mL, Oral, Every 4 hours PRN, Indigestion, Starting on Sun06/06/23 at 0552, Until Sun06/11/23 at 1909, Shake Well metoclopramide (REGLAN) injection 10 mg 10 mg, Intravenous, Every 6 hours PRN, Vomiting, Nausea, Starting on Sun06/05/23 at 2045, Until Sun06/11/23 at 1909, Administer IV over 1-2 minutes normal saline 0.9 % flush 3-10 mL 3-10 mL, Intravenous, As needed, Line care, Starting on Sun06/05/23 at 1316, Until Sun06/11/23 at 1909 ondansetron (ZOFRAN) injection 4 mg 4 mg, Intravenous, Every 8 hours PRN, Nausea, Vomiting, Starting on Sun06/05/23 at 1316, Until Sun06/11/23 at 1909, IV push over 2-5 minutes. 0007 (Given - Provider: Braydon Ngo RN) oxyCODONE-acetaminophen (PERCOCET) 5-325 MG tablet 1 tablet 1 tablet, Oral, Every 4 hours PRN, Severe pain (Scale 8 - 10), Starting on Sun06/06/23 at 0552, Until Sun06/11/23 at 1909, Maximum dose of acetaminophen is 4000 mg from all sources in 24 hours. 0910 (Given - Provider: Eagle Lai RN)2032 (Given - Provider: Braydon Ngo, SARAH) 2358 (Given - Provider: Braydon Ngo RN) sodium chloride (PF) 0.9 % flush 3-10 mL 3-10 mL, Intravenous, As needed, Line care, 3 mL BID & PRN to capped IVs and 10 mL Q8hr & PRN to capped central line ports, Starting on Sun06/05/23 at 1316, Until Sun06/11/23 at 1909 sodium chloride 0.9% infusion(Linked Group 3) at 3 mL/hr, Intravenous, Continuous PRN, Arterial line monitoring, Starting on Sun06/05/23 at 1316, Until Sun06/11/23 at 1910 traMADol (ULTRAM) tablet 100 mg 100 mg, Oral, Every 6 hours PRN, Other, Severe pain (Scale 8 - 10), Starting on Sun06/05/23 at 1316, Until Sun06/11/23 at 1910, after extubation and tolerating PO traMADol (ULTRAM) tablet 50 mg 50 mg, Oral, Every 4 hours PRN, Moderate pain (Scale 4 - 7), after extubation and tolerating PO, Starting on Sun06/05/23 at 1316, Until Sun06/11/23 at 191 Linked Groups Order Group 1: famotidine (PF) (PEPCID) injection 20 mgJump to med 20 mg, Intravenous, Every 24 hours, First dose on Sun06/05/23 at 1330, Until Discontinued, Give if unable to take PO. IV Push over 2 minutes Or famotidine (PEPCID) tablet 20 mgJump to med 20 mg, Oral, Every 24 hours, First dose on Sun06/05/23 at 1330, Until Discontinued Group 2: acetaminophen (TYLENOL) tablet 650 mgJump to med 650 mg, Oral, Every 6 hours PRN, Mild pain (Scale 1 - 3), Fever, Starting on Sun06/05/23 at 1316, Until Sun06/11/23 at 1910, Maximum dose of acetaminophen is 4000 mg from all sources in 24 hours. Or acetaminophen (TYLENOL) suppository 650 mgJump to med 650 mg, Rectal, Every 6 hours PRN, Mild pain (Scale 1 - 3), Fever, Starting on Sun06/05/23 at 1316, Until Sun06/11/23 at 1910, Give if unable to take PO. Maximum dose of acetaminophen is 4000 mg from all sources in 24 hours. Or acetaminophen (TYLENOL) 160 MG/5ML solution 650 mg (CANCELED) 650 mg, Oral, Every 6 hours PRN, Mild pain (Scale 1 - 3), Fever, Starting on Sun06/05/23 at 1316, Until Sun06/06/23 at 0558, Give if unable to swallow tablets/capsules or if patient prefers liquid. Maximum dose of acetaminophen is 4000 mg from all sources in 24 hours., Post-Op Group 3: Arterial line to monitor (CANCELED) Routine, Until discontinued, Starting on Sun06/05/23 at 1317, Until Specified, Arterial line to transducer., Post-Op And sodium chloride 0.9% infusionJump to med at 3 mL/hr, Intravenous, Continuous PRN, Arterial line monitoring, Starting on Sun06/05/23 at 1316, Until Sun06/11/23 at 1910 documented in this encounter Care Teams Auto Machinist Relationship Specialty Start Date End Date Davin Estrada MD [address] [place] [address] [address] [place] [address] PCP - General FAMILY PRACTICE 04/12/23 Lee Villaseñor MD [address] [place] [id number] Consulting Physician INTERNAL MEDICINE 05/28/23 documented as of this encounter
--- OUTSIDE RECORDS SUMMARY | 2024-04-27 15:46 | XMS_ITS | Encounter Summary ---
Author Organization [facility] Address [address] [place] [address]. [place], [place] [address] [place] [address] Care Team Providers Care Nut Dehydrator Operator Name Role Phone Davin Estrada MD Primary Care Provider [phone] Lee Villaseñor MD Unavailable Encounter Details Date Type Department Care Team (Latest Contact Info) Description 06/09/2023 Travel Social History Tobacco Use Types Packs/Day Years Used Date Smoking Tobacco: Never Passive Smoke Exposure: Never Smokeless Tobacco: Never Alcohol Use Standard Drinks/Week Comments Not Currently 0 (1 standard drink = 0.6 oz pur e alcohol) occasional wine [facility] Utilities Answer Date Recorded In the past 12 months has [facility] [employer], gas, oil, or water [employer] threatened to shut off services in your [...] and heating? 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 Author Patient will return to prior living situation and remain independent in ADLs upon discharge from hospital Lifestyle No Shanel Haynes RN documented as of this encounter Visit Diagnoses Not on filedocumented in this encounter Care Teams Nut Dehydrator Operator Relationship Specialty Start Date End Date Davin Estrada MD [address] [place] [address] [address] [place], [place] [address] PCP - General FAMILY PRACTICE 04/12/23 Lee Villaseñor MD [address] [place] [address] Consulting Physician INTERNAL MEDICINE 05/28/23 documented as of this encounter
--- OUTSIDE RECORDS SUMMARY | 2024-04-27 15:46 | XMS_ITS | Encounter Summary ---
Author Organization [facility] Address [facility] [place] [address] [place] [address] Care Team Providers Care Cook Short Order Name Role Phone Davin Estrada MD Primary Care Provider [phone] Lee Villaseñor MD Unavailable Reason for Visit * Reason Onset Date Comments Medication Problem 05/28/2023 Encounter Details Date Type Department Care Team (Late st Contact Info) Description 05/28/2023 Telephone [facility] [address] [place] [address] León Castillo MD [address] [place] [address] Medication Problem Social History Tobacco Use Types Packs/Day Years Used Date Smoking Tobacco: Never Passive Smoke Exposure: Never Smokeless Tobacco: Never Alcohol Use Standard Drinks/Week Comments Not Currently 0 (1 standard drink = 0.6 oz pur e alcohol) occasional wine [facility] Utilities Answer Date Recorded In the past 12 months has th e electric, gas, oil, or water [employer] threatened to shut off services in your [...] and heating? Not hard at all 04/27/2023 [facility] [place] of Occupat ional Health - Occupational Stress [...] slept in a correction (including now)? No 04/27/2023 Comments Unknown Sex and Gender Information Value Date Recorded Sex Assigned at Not on file Legal Sex Female 3:10 PM DATA PROCESSING SYSTEMS CONSULTANT Gender Identity Not on file Sexual Orientation [...] Progress Notes * Shannon Baltazar RN - 05/29/2023 3:44 PM CST Pharmacy called again stating Metoprolol Succinate should only be given q day. Reviewed with Dr Jama. He wants it given BID. Dr Jama spoke with pharmacist and also gave her that information PROCESSING SYSTEMS CONSULTANT * Shannon Baltazar RN - 05/29/2023 10:07 AM CSTAddended by: SHANNON BALTAZAR on: 05/29/2023 10:07 AM Modules accepted: Orders PROCESSING SYSTEMS CONSULTANT * Kavitha Almaraz - 05/29/2023 9:59 AM CST Pharmacy called to let nurse know they only have 50mg Metoprolol available. Spoke with Santa Pratt. Informed pharmacy that Santa will fix the order and resend it in. PROCESSING SYSTEMS CONSULTANT * Shannon Baltazar RN - 05/29/2023 8:34 AM CST Resent script for Metropolol Succinate 25 mg BID as requested. Verified with phone notes and MD notes. PROCESSING SYSTEMS CONSULTANT * Kavitha Almaraz - 05/29/2023 8:28 AM CST Patient called to speak to nurse due to Metoprolol script. She is to take 2 pills a day and script was called in for 1 tablet a day. Also she is having open heart surgery Sunday and was told to post pone her ablation procedure on 06/27/23. Informed her I will get a msg to Santa Pratt, [facility]. Please call pt at [phone]. PROCESSING SYSTEMS CONSULTANT * Marie Bailey RN - 05/28/2023 8:38 AM CST Incoming call from pt pharmacy. They stated that med was refilled incorrectly. Metoprolol SuccinateER was filled for 2x daily but should be only once daily. Med resent with correct dosage. PROCESSING SYSTEMS CONSULTANT documented in this encounter Plan of Treatment Upcoming Encounters Date Type Department Care Team (Late st Contact Info) Description 02/12/2025 11:30 AM CDT Office Visit [facility] el[facility] [address] [place] [phone] Jun Oscar, AUTOMOBILE RACER [address] [place], [place] [address] documented as of this encounter Visit Diagnoses Diagnosis SVT (supraventricular tachycardia) ([facility]) Other specified cardiac dysrhythmias documented in this encounter Care Teams Cook Short Order Relationship Specialty Start Date End Date Davin Estrada MD [address] [place] [address] [address] [place] [address] PCP - General FAMILY PRACTICE 04/12/23 Lee Villaseñor MD [address] [place] [address] Consulting Physician INTERNAL MEDICINE 05/28/23 documented as of this encounter
--- OUTSIDE RECORDS SUMMARY | 2024-04-27 15:46 | XMS_ITS | Encounter Summary ---
Author Organization [facility] Address [address] [place] [address]. [place], [place] [address] [place] [address] Care Team Providers Care Relationship Executive Name Role Phone Davin Estrada MD Primary Care Provider [phone] Lee Villaseñor MD Unavailable Encounter Details Date Type Department Care Team (Latest Contact Info) Description 06/05/2023 Travel Social History Tobacco Use Types Packs/Day Years Used Date Smoking Tobacco: Never Passive Smoke Exposure: Never Smokeless Tobacco: Never Alcohol Use Standard Drinks/Week Comments Not Currently 0 (1 standard drink = 0.6 oz pur e alcohol) occasional wine [facility] Utilities Answer Date Recorded In the past 12 months has [facility] [employer] gas, oil, or water [employer] threatened to shut off services in your [...] and heating? Not hard at all 06/06/2023 [facility] [place] of Occupat ional Health - Occupational Stress [...] Legal Sex Female 3:10 PM DIRECTOR OF HOTEL OPERATIONS Gender Identity Not on file Sexual Orientation Not on file documented as of this encounter Functional Status * Are you deaf or do you have serious difficulty hearing Answer Date of Assessment Author Status No 04/27/2023 11:00 PM Pia Hamilton, RN Active * Are you blind or [...] Hamilton RN Active documented in this encounter Plan of Treatment Upcoming Encounters Date Type Department Care Team (Late st Contact Info) Description 02/12/2025 11:30 AM CDT Office Visit [facility] [address] [place] [address] Jun Oscar, RECRUITING ASSOCIATE [address] [place] [address] documented as of this encounter Visit Diagnoses Not on filedocumented in this encounter Care Teams Relationship Executive Relationship Specialty Start Date End Date Davin Estrada MD [address] [place] [address] [address] [place] [address] PCP - General FAMILY PRACTICE 04/12/23 Lee Villaseñor MD [address] [place] [address] Consulting Physician INTERNAL MEDICINE 05/28/23 documented as of this encounter
--- OUTSIDE RECORDS SUMMARY | 2024-04-27 15:46 | XMS_ITS | Encounter Summary ---
Author Organization [facility] Address [address] [place] [address]. [place], [place] [address] [place] [address] Care Team Providers Care Jewel Hole Rough Opener Name Role Phone Davin Estrada MD Primary Care Provider [phone] Lee Villaseñor MD Unavailable Encounter Details Date Type Department Care Team (Latest Contact Info) Description 05/28/2023 Travel Social History Tobacco Use Types Packs/Day Years Used Date Smoking Tobacco: Never Passive Smoke Exposure: Never Smokeless Tobacco: Never Alcohol Use Standard Drinks/Week Comments Not Currently 0 (1 standard drink = 0.6 oz pur e alcohol) occasional wine [facility] Utilities Answer Date Recorded In the past 12 months has [facility] [employer], gas, oil, or water [employer] threatened to shut off services in your [...] and heating? Not hard at all 04/27/2023 [facility] [place] of Occupat ional Health - Occupational Stress [...] slept in a usp (including now)? 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 SUPERVISOR Gender Identity Not on file Sexual Orientation [...] Description 02/12/2025 11:30 AM CDT Office Visit [facility] [address] [place] [address] Jun Oscar, DRAMA DIRECTOR [address] [place] [address] documented as of this encounter Visit Diagnoses Not on filedocumented in this encounter Care Teams Jewel Hole Rough Opener Relationship Specialty Start Date End Date Davin Estrada MD [address] [place] [address] [address] [place] [address] PCP - General FAMILY PRACTICE 04/12/23 Lee Villaseñor MD [address] [place] [address] Consulting Physician INTERNAL MEDICINE 05/28/23 documented as of this encounter
--- OUTSIDE RECORDS SUMMARY | 2024-04-27 15:46 | XMS_ITS | Encounter Summary ---
Author Organization [facility] Address [address] [place] [address]. 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 [address] Phone: tel: fax: Referral ID Status Reason Start Date Expiration Date Visits Re quested Visits Authorized [id number] Closed 05/28/2023 06/27/2024 1 1 SHOP SUPERVISOR Reason for Visit * Reason Comments Follow Up Post cath - groin -r ight side Encounter Details Date Type Department Care Team (Late st Contact Info) Description 05/28/2023 3:00 PM ROLL SHOP SUPERVISOR Office Visit [facility] [address] [place] [address] Lee Joshi MD [address] [place] [address] Follow Up (Post cath - groin -right side) Social History Tobacco Use Types Packs/Day Years Used Date Smoking Tobacco: Never Passive Smoke Exposure: Never Smokeless Tobacco: Never Alcohol Use Standard Drinks/Week Comments Not Currently 0 (1 standard drink = 0.6 oz pur e alcohol) occasional wine [facility] Utilities Answer Date Recorded In the past 12 months has e [employer], gas, oil, or water [employer] threatened to shut off services in your [...] and heating? Not hard at all 04/27/2023 [facility] - Occupational Stress Questionnaire Answer Date [...] place to sleep or slept in a skilled nursing (including now)? No 04/27/2023 Comments Unknown Sex and Gender Information Value Date Recorded Sex Assigned at Not on file Legal Sex Female 3:10 PM ROLL SHOP SUPERVISOR Gender Identity Not on file Sexual Orientation Not on file documented as of this encounter Last Filed Vital Signs Vital Sign Reading Time Taken Comments Blood Pressure 130/72 05/28/2023 3:14 PM ROLL SHOP SUPERVISOR Pulse 74 05/28/2023 3:14 PM ROLL SHOP SUPERVISOR Temperature - - Respiratory Rate 16 05/28/2023 3:14 PM ROLL SHOP SUPERVISOR Oxygen Saturation 97% 05/28/2023 3:14 PM ROLL SHOP SUPERVISOR Inhaled Oxygen Concentration - - Weight 62.2 kg (137 lb 3.2 oz) 05/28/2023 3:14 P M ROLL SHOP SUPERVISOR Height 160 cm (5' 3 ) 05/28/2023 3:14 PM ROLL SHOP SUPERVISOR Body Mass Index 24.3 05/28/2023 3:14 PM ROLL SHOP SUPERVISOR documented in this encounter Functional Status * Are you deaf or do you have serious difficulty hearing Answer Date of Assessment Author Status No 04/27/2023 11:00 PM ROLL SHOP SUPERVISOR Pia Chowdary RN Active * Are you blind or do you have serious difficulty seeing, even when wearing glasses? Answer Date of Assessment Author Status No 04/27/2023 11:00 PM ROLL SHOP SUPERVISOR Pia Chowdary RN Active * Do you have serious difficulty walking or climbing stairs? Answer Date of Assessment Author Status No 04/27/2023 11:00 PM ROLL SHOP SUPERVISOR Pia Chowdary RN Active * Do you have difficulty dressing or bathing? Answer Date of Assessment Author Status No 04/27/2023 11:00 PM ROLL SHOP SUPERVISOR Pia Chowdary RN Active * Because of a physical, mental, or emotional condition, do you have difficulty doing errands alone such as visiting a doctor's office or shopping? Answer Date of Assessment Author Status No 04/27/2023 11:00 PM ROLL SHOP SUPERVISOR Pia Chowdary RN Active documented as of this encounter Mental Status * Because of a physical, mental, or emotional condition, do you have serious difficulty concentrating, remembering, or making decisions? Answer Entry Date Author Status No 04/27/2023 11:00 PM ROLL SHOP SUPERVISOR Pia Chowdary RN Active documented in this encounter Patient Instructions * Patient Instructions* Sheeba Frazier RN - 05/28/2023 3:00 PM ROLL SHOP SUPERVISOR Duplex of the right groin to be completed today. SHOP SUPERVISOR documented in this encounter Progress Notes * Lee Joshi MD - 05/28/2023 3:00 PM CST Reason for Visit: Follow Up (Post cath - groin -right side) History of Present Illness: Patient Name: KENDY CRAIG Date of : 1945 Account: [id number] Facility: [facility] Location: [facility] Date of Service: 05/28/2023 Visit HISTORY OF PRESENT ILLNESS: A 77-year-old female who has been referred to me by Dr. House for evaluation of venous pseudoaneurysm. Patient's cardiovascular history consists: 1. Right groin pseudoaneurysm. 2. . 3. Hypertension. 4. Hyperlipidemia. 5. Cardiomyopathy. The patient tells me she had cardiac cath by Dr. House 1 week ago, started having some pain in the right groin, but the pain in the right groin has resolved now. She had a duplex done approximately a week ago that noted right groin venous pseudoaneurysm and that is why I would have been consulted for. The patient tells me that the right groin pain is resolved now, but she does have some bruising and ecchymosis, although she feels fine. She is supposed to have cardiac bypass next week. Otherthan that, she seems to be doing well. ASSESSMENT AND PLAN: 1. Right groin pseudoaneurysm. I evaluated the images. The patient does not have any venous pseudoaneurysm. The patient has a regular arterial pseudoaneurysm, coming off common femoral artery. I willgo ahead and get a duplex today to evaluate further. The pseudoaneurysm was noted to be approximately 8-9 mm in size. I will go ahead get a duplex and based on duplex results we will plan for the results. 2. CAD. Patient has bypass next week. 3. Hypertension. Blood pressure is reasonably well controlled. 4. Hyperlipidemia. She is on statins. Would defer to Dr. House. Addendum: Groin duplex noted no pseudoaneurysm, seems to have resolved now. There is only hematoma noted. Signature/Date: LEE JOSHI #[id number] /NIT Medications: Current Outpatient Medications: Acetaminophen (TYLENOL ARTHRITIS [...] Disp: , Rfl: metoprolol succinate ER (TOPROL-XL) 25 MG 24 hr tablet, Take 1 tablet (25 mg total) by mouth daily., Disp: 90 tablet, Rfl: 3 vitamin ( PLUS) 27-1 MG tablet, Take 1 tablet by mouth daily., Disp: , Rfl: rosuvastatin (CRESTOR) 40 MG tablet, Take 1 tablet (40 mg total) by mouth nightly at bedtime., Disp: 90 tablet, Rfl: 3 sacubitril-valsartan (ENTRESTO) 24-26 MG tablet, Take 1 tablet by mouth 2 (two) times daily., Disp:60 tablet, Rfl: 6 vitamin B-12 (CYANOCOBALAMIN) 500 MCG tablet, Take [...] as needed for Sleep., Disp: , Rfl: Review of patient's allergies [...] Systems Constitutional: Negative for recent unintentional weight gain and recent unintentional weight loss. HENT: Negative for new or significant hearing loss and headaches. Eyes: Negative for blurred vision and double vision. Respiratory: Negative for cough and wheezing. Cardiovascular: Negative for chest pain and palpitations. Gastrointestinal: Negative for heartburn and nausea. Genitourinary: Negative for dysuria and hematuria. Musculoskeletal: Negative for myalgias. Skin: Negative for rash. Neurological: Negative for dizziness. Endo/Heme/Allergies: Negative for new or significant bruising/bleeding. Psychiatric/Behavioral: Negative for depression. Vitals: 05/28/23 1514 BP: 130/72 Patient Position: Sitting BP Location: Right arm Pulse: 74 Weight: 62.2 kg (137 lb 3.2 oz) Height: 1.6 m (5' 3 ) Body mass index is 24.3 kg/m??. Cardiac Exam Rate/Rhythm: Normal rate and [...] Pulmonary: Effort normal. Breath sounds normal. Skin: No rash. No cyanosis. No clubbing. No xanthoma. Musculoskeletal: No kyphosis. Normal ROM. Neurological: Alert. Oriented x 3. Appropriate mood and affect. Normal motor skills. Normal gait. Comments: Right groin with bruising and ecchymosis noted with hematoma. Diagnoses/Impression: 1. Pseudoaneurysm (CMS/HCC) USV PSEUDO ANEURYSM LOW RT 2. Pseudoaneurysm of femoral artery (CMS/HCC) USV PSEUDO ANEURYSM LOW RT 3. 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 Primary hypertension Referring Provider: No ref. provider found PCP: VENICE ESTRADA MD SHOP SUPERVISOR SHOP SUPERVISOR documented in this encounter Plan of Treatment Upcoming Encounters Date Type Department Care Team (Late st Contact Info) Description 02/12/2025 11:30 AM CDT Office Visit [facility] eld [address] [place] [address] Jun Oscar, GIULIA [address] [place] [address] documented as of this encounter Results * USV PSEUDO ANEURYSM LOW RT (05/29/2023 8:44 AM ROLL SHOP SUPERVISOR) Anatomical Region Laterality Modality Extremity Ultrasound 05/28/2023 2:03 PM ROLL SHOP SUPERVISOR Narrative 05/28/2023 5:15 PM ROLL SHOP SUPERVISOR ?Vascular Report Pat.Name: ??KENDY CRAIG ? Pat.ID: ?[id number] ? St.Date: ?? 05/28/2023 ?Refer.MD: ??LEE JOSHI ? Exam Time: 2:03:00 PM ? Study Type:PVI ART DUPLEX SCAN-RIGHT LEG ??Age: ??1945,77Y ? Sex: ? F ? Sonogrphr: Pia Urena RVT ? Pat. Stat.:Outpatient ? CPT - 4: ?19646 Arterial Duplex LE Reason for Study:Pseudoaneurysm ? [...] ?residual heamtoma. ++++++++++++++++++++++++++++++++++++ MEASUREMENTS: ++++++++++++++++++++++++++++++++++++ ?DOPPLER Right CATTLE SHIPPER ?? CATTLE SHIPPER PSV ?122 cm/s ? Right Prox Profunda ?? Prox Profunda P ?61 cm/s ? Right Prox SFA ?? Prox SFA PSV ?84 cm/s ? Right Dist EIA ?? Dist EIA PSV ? 107 cm/s ? <Electronic Signature> 05/28/2023 05:15 PM Lee Joshi M.D. Procedure Note Lee Joshi MD - 05/28/2023 Vascular Report Pat.Name: KENDY CRAIG Pat.ID: [id number] St.Date: 05/28/2023 Refer.: LEE JOSHI Exam Time: 2:03:00 PM Study Type:PVI ART DUPLEX SCAN-RIGHT LEG Age: 8 1945,77Y Sex: F Sonogrphr: Pia Urena, RVT Pat. Stat.:Outpatient CPT - 4: 31423 Arterial Duplex LE Reason for Study:Pseudoaneurysm Race: W ++++++++++++++++++++++++++++++++++++ FINDINGS: ++++++++++++++++++++++++++++++++++++ Right: Hematoma noted at the groin measuring 1.9 x 1.6 cm. No pseudoaneurysm is noted. No AV fistula is noted. The external iliac, common femoral, profunda femoris, and proximal femoral veins and arteries are patent. Possible extrinsic compression of the common femoral vein from the residual heamtoma. ++++++++++++++++++++++++++++++++++++ MEASUREMENTS: ++++++++++++++++++++++++++++++++++++ DOPPLER Right CATTLE SHIPPER CATTLE SHIPPER PSV 122 cm/s Right Prox Profunda Prox Profunda P 61 cm/s Right Prox SFA Prox SFA PSV 84 cm/s Right Dist EIA Dist EIA PSV 107 cm/s <Electronic Signature> 05/28/2023 05:15 PM Lee Joshi M.D. 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
--- OUTSIDE RECORDS SUMMARY | 2024-04-27 15:46 | XMS_ITS | Encounter Summary ---
Author Organization [facility] Address [address] [place] [address]. [place], [place] [address] [place] [address] Care Team Providers Care Optical Glass Sawyer Name Role Phone Davin Estrada MD Primary Care Provider [phone] Lee Villaseñor MD Unavailable Encounter Details Date Type Department Care Team (Latest Contact Info) Description 06/04/2023 Travel Social History Tobacco Use Types Packs/Day Years Used Date Smoking Tobacco: Never Passive Smoke Exposure: Never Smokeless Tobacco: Never Alcohol Use Standard Drinks/Week Comments Not Currently 0 (1 standard drink = 0.6 oz pur e alcohol) occasional wine [facility] Utilities Answer Date Recorded In the past 12 months has [facility] [employer], gas, oil, or water [employer] threatened to shut off services in your [...] and heating? Not hard at all 04/27/2023 [facility] [place] of Occupat ional Health - Occupational Stress [...] slept in a jail (including now)? No 04/27/2023 Comments Unknown Sex and Gender Information Value Date Recorded Sex Assigned at Not on file Legal Sex Female 3:10 PM ADULT EDUCATION PROFESSIONAL Gender Identity Not on file Sexual Orientation [...] Description 02/12/2025 11:30 AM CDT Office Visit [facility] [address] [place] [address] Jun Oscar, VISUAL DEVELOPER [address] [place] [address] documented as of this encounter Visit Diagnoses Not on filedocumented in this encounter Care Teams Optical Glass Sawyer Relationship Specialty Start Date End Date Davin Estrada MD [address] [place] [address] [address] [place] [address] PCP - General FAMILY PRACTICE 04/12/23 Lee Villaseñor MD [address] [place] [address] Consulting Physician INTERNAL MEDICINE 05/28/23 documented as of this encounter
--- OUTSIDE RECORDS SUMMARY | 2024-04-27 15:46 | XMS_ITS | Encounter Summary ---
Author Organization [facility] Address [facility] [place] [address] [place] [address] Care Team Providers Care Farmworker Cranberry Name Role Phone Davin Estrada MD Primary Care Provider [phone] Lee Villaseñor MD Unavailable Reason for Visit * Auth/Cert (Routine) Specialty Diagnoses / Procedures Referred By Contac t Referred To Contact Diagnoses CAD Procedures CORONARY ARTERY BYPASS, MARIA ANTONIA Ahmet Levi MD [address] [place] [address] Phone: tel: fax: Referral ID Status Reason Start Date Expiration Date Visits Re quested Visits Authorized [id number] 1 1 Encounter Details Date Type Department Care Team (Late st Contact Info) Description 06/05/2023 7:00 AM LIVESTOCK JUDGING COACH - 06/05/2023 11:15 AM LIVESTOCK JUDGING COACH Surgery [facility] [address] [place] [address] Ahmet Levi MD [address] [place] [id number] CORONARY ARTERY BYPASS, MARIA ANTONIA Surgery Details Date/Time Status Location OR Service Patient Class Case Class Case Type Trauma Case? 06/05/2023 7:00 AM Posted [facility] OR Card 4 Cardiovascular Morning Admit E - Elective No Panel 1 Procedure LRB Anes Op Region Wound Class Comments CORONARY ARTERY BYPASS, MARIA ANTONIA N/A General Clean CABG X 3 using RICHTER, RUSSEL, LGSV and RGSV SHERRIE clip ECC and Cell Saver Utilized MARIA ANTONIA per anesthesia Surgeon Surgeon Role Service Panel Ahmet Levi MD Primary Cardiovascular 1 documented in this encounter Social History Tobacco Use Types Packs/Day Years Used Date Smoking Tobacco: Never Passive Smoke Exposure: Never Smokeless Tobacco: Never Tobacco Cessation:Counseling Given: Not Answered Alcohol Use Standard Drinks/Week Comments Not Currently 0 (1 standard drink = 0.6 oz pur e alcohol) occasional wine [employer] Answer Date Recorded In the past 12 months has e [employer], gas, oil, or water [employer] threatened to shut off services in your [...] and heating? Not hard at all 06/06/2023 [facility] of Occupat ional Health - Occupational Stress [...] in a skilled nursing (including now)? No 06/06/2023 Comments Unknown Sex and Gender Information Value Date Recorded Sex Assigned at Not on file Legal Sex Female 3:10 PM LIVESTOCK JUDGING COACH Gender Identity Not on file Sexual Orientation Not on file documented as of this encounter Last Filed Vital Signs Vital Sign Reading Time Taken Comments Blood Pressure 144/64 06/05/2023 5:28 AM LIVESTOCK JUDGING COACH b/p right arm- 145/71 Pulse 70 06/05/2023 5:28 AM LIVESTOCK JUDGING COACH Temperature 36.4 ??C (97.5 ??F) 06/05/2023 5 :28 AM LIVESTOCK JUDGING COACH Respiratory Rate 18 06/05/2023 5:28 AM LIVESTOCK JUDGING COACH Oxygen Saturation 97% 06/05/2023 5:2 8 AM LIVESTOCK JUDGING COACH Inhaled Oxygen Concentration - - Weight 61.2 kg (134 lb 14.7 oz) 06/05/2023 5:14 AM LIVESTOCK JUDGING COACH Height 159.5 cm (5' 2.8 ) 06/05/2023 5: 14 AM LIVESTOCK JUDGING COACH Body Mass Index 24.06 06/05/2023 5:14 AM LIVESTOCK JUDGING COACH documented in this encounter Functional Status * Are you deaf or do you have serious difficulty hearing Answer Date of Assessment Author Status No 06/06/2023 4:01 AM LIVESTOCK JUDGING COACH Love Cummings RN Active * Are you blind or do you have serious difficulty seeing, even when wearing glasses? Answer Date of Assessment Author Status No 06/06/2023 4:01 AM LIVESTOCK JUDGING COACH Love Cummings RN Active * Do you have serious [...] Bailon RN Active documented in this encounter Discharge Summaries * JAKOB Rich - 06/11/2023 2:33 PM CST Physician Discharge Summary Patient ID: Kendy Salcido [id number] 77-year-old 1945 Primary Care Physician: DAVIN ESTRADA [...] hospitalization demonstrated an EF of 30-35% with nnph-hw-brzsuwnj aortic insufficiency. She was started on guideline [...] EP was consulted. Patient was [facility] on [facility] request over warfarin. Risks vs. benefits discussed [...] Ahmet Levi MD at 06/22/2023 5:10 PM LIVESTOCK JUDGING COACH STOCK JUDGING COACH STOCK JUDGING COACH documented in this encounter Discharge Instructions * Attachments The following attachments cannot be sent through Care Everywhere. * Coronary Artery Bypass Grafting Discharge Instructions (Croatian) * Sternal Precautions After Heart Bypass Surgery (Croatian) * Amiodarone, ADULT (Croatian) * Apixaban, ADULT (Croatian) * Furosemide, ADULT (Croatian) * Oxycodone and Acetaminophen, ADULT (Croatian) * Potassium Chloride, ADULT (Croatian) * Spironolactone, ADULT (Croatian) * Hydralazine, ADULT (Croatian) documented in this encounter Medications at Time [...] recall of infoprovided. Will fax referral to [facility]. STOCK JUDGING COACH * Monica Sierra RN - 06/11/2023 2:46 [...] by Monica Sierra RN Outcome: Progressing Problem: Fluid Volume [...] 0805 by Monica Sierra RN Outcome: Progressing STOCK JUDGING COACH * JAKOB Rich - 06/11/2023 1:58 PM [...] hospitalization demonstrated an EF of 30-35% with awyc-pp-updferxm aortic insufficiency. She was started on guideline [...] Ahmet Levi MD at 06/12/2023 6:18 AM LIVESTOCK JUDGING COACH STOCK JUDGING COACH STOCK JUDGING COACH * Monica Sierra RN - 06/11/2023 8:05 [...] Bloodstream Infection Signs and Symptoms Outcome: Progressing STOCK JUDGING COACH * Junior Streeter MD - 06/10/2023 12:08 [...] bisacodyl, bisacodyl EC, fentaNYL, fentaNYL, magnesium sulfate, szyuzdnyg-qibyxllk-kqyseqfcnrc, metoclopramide, midazolam, normal saline, ondansetron, oxyCODONE-acetaminophen, sodium [...] in cardiology clinic. Signed Junior Streeter MD STOCK JUDGING COACH * Eagle Lai RN - 06/10/2023 10:04 [...] Bloodstream Infection Signs and Symptoms Outcome: Progressing STOCK JUDGING COACH * CAROL Mitchell - 06/10/2023 7:54 AM [...] hospitalization demonstrated an EF of 30-35% with cyit-gq-meqilmdj aortic insufficiency. She was started on guideline [...] denied chest pain or shortness of breath. [place] her pain was well-controlled. Pulls 650 on [...] patches lidocaine MiraLAX daily. DVT prophylaxis: MOMO curtis. Subcu heparin. PPI prophylaxis: Pepcid. OBJECTIVE Intake/Output [...] Sara Olmos MD at 06/10/2023 6:54 PM LIVESTOCK JUDGING COACH STOCK JUDGING COACH STOCK JUDGING COACH STOCK JUDGING COACH * CAROL Mitchell - 06/09/2023 12:36 PM [...] hospitalization demonstrated an EF of 30-35% with ikyn-yk-oefjkrrj aortic insufficiency. She was started on guideline [...] denied chest pain or shortness of breath. [place] her pain was well-controlled. Pulls 650 on [...] Sara Olmos MD at 06/10/2023 6:52 PM LIVESTOCK JUDGING COACH STOCK JUDGING COACH STOCK JUDGING COACH * Rocio Phillips RN - 06/09/2023 12:09 PM CST 06/09/23 1206 Gait Gait Steady;Good Balance Gait Assistance Independent Cardiac Rehab Phase II referral Cardiac Rehab Phase II Referral Yes Referral Facility [facility] Patient Complaints Patient Complaints Denies Complaints Therapeutic [...] process. Will fax Phase 2 referral to Mike in [place]. Method: One to One, Teachback Process, Verbal Instruction, and Written Instruction Recipient: Patient Readiness to Learn: Ready Barriers to Learning: None Teaching Response: Ask Questions and Verbalizes Understanding STOCK JUDGING COACH * Junior Streeter MD - 06/09/2023 10:59 [...] bisacodyl, bisacodyl EC, fentaNYL, fentaNYL, magnesium sulfate, xcrqmxewo-jtzhzvuk-finofbtmamm, metoclopramide, midazolam, normal saline, ondansetron, oxyCODONE-acetaminophen, sodium [...] her on Eliquis. Signed Junior Streeter MD STOCK JUDGING COACH * Eagle Lai RN - 06/09/2023 10:21 [...] Bloodstream Infection Signs and Symptoms Outcome: Progressing STOCK JUDGING COACH * Amna Hickman RN - 06/08/2023 2:35 [...] II Referral -- Yes Referral Facility -- [facility] Patient Complaints Patient Complaints -- Denies Complaints Therapeutic Exercise Comment Therapeutic Exercise Comment -- returned to chair, call light within reach Encouraged at least one more walk before bedtime. She did well. She is able to walk independently without an AD. STOCK JUDGING COACH * Amna Hickman RN - 06/08/2023 1:25 [...] Teaching Response: Verbalizes Understanding and Needs Follow-up STOCK JUDGING COACH * Castillo Ceja, OT - 06/08/2023 8:43 AM CST OT Initial Evaluation Discharge Recommendation: home with assistance Activity Recommendation for store leader: Independent 06/08/23 1101 Therapy Visit OT Received On 06/08/23 [...] Inpatient OT Time Calculation OT Start Time 0833 OT Stop Time 0843 OT Time Calculation (min) 10 min Precautions [...] Independent LE Dressing Assistance Independent Additional Comments Worden with all ADls Bed Mobility Supine to Sit Independent Sit to Supine Independent Other (Comment) Worden completing log rolling and maintaining sternal precautions [...] a 77-year-old female who is s/p CABG. DRY YARD WORKER Kendy Salcido reporting independence with all ADLs and instrumental ADLs. Pt currently demonstrating independence and intact safety awareness with all ADLs and functional transfers. OT will sign off at this time as Pt demonstrating PLOF with no acute skilled OT needs. Education: Primary Learners Name: Kendy Salcido Primary Language of learner: Croatian Patient educated on precautions exercises transfers ADLs balance bed mobility equipment therapy plan gait safety. Education was completed one to one verbal this date. Preference of learning new concepts one to one verbal Barriers to education this date were none. Response to education this date verbalized understanding verbalized recall. STOCK JUDGING COACH * Tucker Rojas, PT STUDENT - 06/08/2023 8:33 AM CST PT Initial Evaluation Discharge Recommendation: home with assistance No skilled P/T DME equipment recommendation: none Activity Recommendation for store leader: Up with independence this session; future per nursing staff 06/08/23 1100 Therapy Visit Ordering Provider ACROL Silver PT Evaluation Completed on 06/08/23 Subjective [...] Name: Kendy Salcido Primary Language of learner: Croatian Patient was educated on precautions transfers ADLs bed mobility gait safety stair training. Education was completed verbal demonstration this date. Preference of learning new concepts verbal demonstration Barriers to education this date were none. Response to education this date verbalized understanding. Cosigned by Jessie Lai, PT at 06/08/2023 2:23 PM LIVESTOCK JUDGING COACH STOCK JUDGING COACH STOCK JUDGING COACH * Margaret Silver, LEGUILLON DEBEADER - 06/08/2023 7:52 AM CST Daily Cardiothoracic [...] hospitalization demonstrated an EF of 30-35% with rtmr-wd-bjykmfvs aortic insufficiency. She was started on guideline [...] denied chest pain or shortness of breath. [place] her pain was well-controlled. Pulls 650 on [...] and Tele: NSR Signed CAROL MITCHELL 06/08/2023 STOCK JUDGING COACH * Junior Streeter MD - 06/07/2023 1:27 [...] bisacodyl, bisacodyl EC, fentaNYL, fentaNYL, magnesium sulfate, ylbmhmyup-mwqjhkwl-vkqcueodmgo, metoclopramide, midazolam, normal saline, ondansetron, oxyCODONE-acetaminophen, sodium [...] control. On beta-akiko. Signed Junior Streeter MD STOCK JUDGING COACH * Margaret Silver, LEGUILLON DEBEADER - 06/07/2023 9:55 AM CST Daily Cardiothoracic [...] hospitalization demonstrated an EF of 30-35% with ntid-kt-msifagoi aortic insufficiency. She was started on guideline [...] denied chest pain or shortness of breath. [place] her pain was well-controlled. Pulls 650 on [...] and Tele: NSR Signed CAROL MITCHELL 06/07/2023 STOCK JUDGING COACH * Ahmet Berumen RN - 06/06/2023 3:20 PM CST Patient has walked the halls once this shift. Up to the chair until early afternoon. Cleviprex gtt initiated and continues at 3 mg/hr. present at bedside and attentive. STOCK JUDGING COACH * Shanel Haynes RN - 06/06/2023 1:01 PM CST 06/06/23 1301 Referral Data Source of Information Patient;Chart review Patient Information Primary Caregiver Self Current living Situation Spouse/significant other Type of Residence Private residence Support System Spouse/Significant Other Recent Hospitalization Recent Hospitalization within 30 days No Baseline ADL's Functional Status Independent Behavior Oriented;Cooperative Communication Talks;Understands speaking;Understands Croatian Psychosocial Need Indicator Mental health concerns No Diagnosis/prognosis resulting in poor adjustment or coping with illness No Diagnosis/prognosis with anticipated outcome of major lifestyle changes, including change in exterminator living environment No Complex Family concerns No [...] course, and the patient's expressed preferences. Brandon in [place] STOCK JUDGING COACH * Margaret Chika Silver, LEGUILLON DEBEADER - 06/06/2023 9:58 AM CST Daily Cardiothoracic [...] hospitalization demonstrated an EF of 30-35% with oovv-iz-xofzetwk aortic insufficiency. She was started on guideline [...] denied chest pain or shortness of breath. [place] her pain was well-controlled. Pulls 650 on [...] Ahmet Levi MD at 06/06/2023 4:32 PM LIVESTOCK JUDGING COACH STOCK JUDGING COACH STOCK JUDGING COACH * Shanel Haynes RN - 06/05/2023 2:35 PM CST Pt newly to the icu from surgery. Intubated. No family in room at this time. STOCK JUDGING COACH * Madhu Hickman - 06/05/2023 6:47 AM CST Presurgical visit. Provided emotional/spiritual support to patient and family member. Prayed with patient and family member. Rev. Gretchen HilarioDiv. Outside Installer Apprentice STOCK JUDGING COACH documented in this encounter Consult Notes * [...] significant for SVT and newly diagnosed cardiomyopathy EBUJ02-16% and CAD status post CABG PAST CARDIAC [...] bisacodyl, bisacodyl EC, fentaNYL, fentaNYL, magnesium sulfate, msxkzfzll-shpedtgl-fsgxgfnkkav, metoclopramide, normal saline, ondansetron, oxyCODONE-acetaminophen, sodium chloride (PF), [CANCELED] Arterial line to mon itor AND sodium chloride, traMADol, traMADol Meds Prior [...] oz) Filed Vitals: 06/10/23 1955 06/10/23 2337 06/11/23 0605 06/11/23 0752 BP: 135/88 102/57 119/52 107/45 [...] and SVT Signed CINTIA GARCIA MD 06/11/2023 STOCK JUDGING COACH STOCK JUDGING COACH * Enrique Henley, ALYSSIA - 06/06/2023 4:09 PM CST Images from the original note were not included. Cardiology Consult Note Patient Name: Kendy Salcido : 1945 PCP: DAVIN ETSRADA MD Primary Skimmer Scoop Operator: Dr. House; Dr. Streeter covering Reason for [...] CABG x 3 with SVG to OM1, RICTHER to LAD, RUSSEL to RCAand AtriCure clip. Cardiology consultation was requested to follow in the postoperative period. Patient was seen and examined resting comfortably in bed. She reports improving dyspnea. She endorses incisional chest discomfort which is under good control with current pain medications. Past Medical History: Diagnosis Date Essential (primary) hypertension Ovarian cancer ([facility]/HCC) ([facility]/HCC) s/p chemo and resection SVT (supraventricular tachycardia) [...] 50 mL IVPB, fentaNYL, fentaNYL, magnesium sulfate, yhbyhyynu-fdubtsej-cgvfhljpjmk, metoclopramide, midazolam, normal saline, ondans etron, oxyCODONE-acetaminophen, [...] Imaging: ECG 12 lead Result Date: 06/06/2023 [facility] [address] [place] [address] Test Date: 2023-06-06 Pat Name: KENDY SALCIDO Department: 1 Room: [place] [address] Gender: Female Patient Educator: Blair : 1945 Requested By: AHMET LEVI Order Number: [id number] Reading MD: Belinda Bocanegra Measurements Intervals [facility] Rate: 80 P: 58 OK: 116 QRS: 23 QRSD: 91 T: 59 QT: 404 QTc: 468 Interpretive Statements SINUS RHYTHM WITH SHORT OK INTERVAL NONSPECIFIC ST & T- WAVE ABNORMALITY STOCK JUDGING COACH XR CHEST PORTABLE Result Date: 06/06/2023 EXAMINATION: [...] AM ECG 12 lead Result Date: 06/05/2023 [facility] [address] [place] [address] Test Date: 2023-06-05 Pat Name: KENDY SALCIDO Department: 1 Room: [place] [address] Gender: Female Patient Educator: Ab : 1945 Requested By: AHMET LEVI Order Number: [id number] Reading MD: Belinda Bocanegra Measurements Intervals [facility] Rate: 54 P: 63 OK: 140 QRS: 78 QRSD: 94 T: 68 QT: 488 QTc: 463 Interpretive Statements SINUS BRADYCARDIA STOCK JUDGING COACH USE TRANSESOPHAGEAL ECHO Result Date: 06/05/2023 Transesophageal Echocardiography Report Pat.Name: KENDY SALCIDO Pat.ID: [id number] .Date: 06/05/2023 Refer.: GUERO Exam Time: 7:37:00 AM Study Type:TRANSESOPHAGEAL ECHO (MARIA ANTONIA) Age: 8 1945,77Y Sex: F Sonogrphr: Ferdinand sumner Pat. Stat.:Inpatient [facility] - 4: [id number] [id number] Reason for Study:Coronary bypass surgery Procedures: 2D, [...] Comments: maria antonia probe 41 ++++++++++++++++++++++++++++++++++++ MEASUREMENTS: + +++++++++++++++++++++++++++++++++++ 2D Left Ventricle LV EF(Bi-Plane) 56 % [...] mmHg AV DI Value 0.6 <Electronic Signature> 403:14 PM Keina Streeter M.D. XR CHEST PORTABLE Result Date: [...] AM ECG 12 lead Result Date: 06/04/2023 [facility] [address] [place] [address] Test Date: 2023-06-04 Pat Name: KENDY SALCIDO Department: 1 Room: Gender: Female Patient Educator: Sebastian : 1945 Requested By: AHMET LEVI Order Number: [id number] Reading MD: Belinda Bocanegra Measurements Intervals [facility] Rate: 64 P: 69 OK: 161 QRS: 56 QRSD: 94 T: 61 QT: 440 QTc: 455 Interpretive Statements SINUS RHYTHM LEFT VENTRICULAR HYPERTROPHY AND ST-T CHANGE [VOLTAGE CRITERIA PLUS ST/T ABNORMALITY] STOCK JUDGING COACH USV PSEUDO ANEURYSM LOW RT Result Date: 05/28/2023 Vascular Report Pat.Name: KENDY SALCIDO Pat.ID: [id number] St.Date: 05/28/2023 Refer.MD: LEE VILLASEÑOR Exam Time: 2:03:00 PM Study Type:PVI ART DUPLEX SCAN- RIGHT LEG Age: 8 1945,77Y Sex: F Sonogrphr: Pia Urena RVT Pat. Stat.:Outpatient CPT - 4: 25531 Arterial Duplex LE Reason for Study: Pseudoaneurysm Race: W ++++++++++++++++++++++++++++++++++++ FINDINGS: ++++++++++++++++++++++++++++++++++++ Right: Hematoma noted at the groin measuring 1.9 x 1.6 cm. No pseudoaneurysm is noted. No AV fistula is noted. The external iliac, common femoral, profunda femoris, and proximal femoral veinsand arteries are patent. Possible extrinsic compression of the common femoral vein from the residual heamtoma. ++++++++++++++++++++++++++++++++++++ MEASUREMENTS: ++++++++++++++++++++++++++++++++++++DOPPLER Right APPLIANCE TESTER APPLIANCE TESTER PSV 122 cm/s Right Prox Profunda Prox Profunda P 61 cm/s Right Prox SFA Prox SFA PSV 84 cm/s Right Dist EIA Dist EIA PSV 107 cm/s <Electronic Signature> 05/28/2023 05:15 PM Lee Villaseñor M.D. USV CAROTID DUPLEX MEDARDO Result Date: 05/22/2023 S Vascular Report Pat.Name: KENDY SALCIDO Pat.ID: [id number] St.Date: 05/21/2023 Refer.MD: AMADOR HELTON Exam Time: 5:09:00 PM Study Type:PVI CAROTID SCAN - BILATERAL Age: 8 1945,77Y Sex: F Sonogrphr: Boo Kay RVT, RDCS Pat. Stat.:Inpatient CPT - 4: 17074 Carotid Duplex Reason for Study:Pre-op evaluation Race: [...] antegrade vertebral flow. Lt Subcl: The proximal subclavianartery is patent. Lt ICA: 0-39% stenosis with plaque noted in the internal carotid artery. Mild heterogeneous plaque noted. Lt ECA: Patent with antegrade flow noted in the external carotid artery. LtVert: Normal antegrade vertebral flow. ++++++++++++++++++++++++++++++++++++ MEASUREMENTS: ++++++++++ ++++++++++++++++++++++++++ DOPPLER Right Prox CCA Prox CCA PSV 94.4 cm/s Prox CCA EDV 17.4 cm/s Right Innominate Innominate PSV 55.5 cm/s Right Mid CCA Mid CCA PSV 90.1 cm/s Mid CCA EDV 19.9 cm/s Right Dist CCA Dist CCA PSV 70.8 cm/s Dist CCA EDV 19.9 cm/s Right Prox ICA Prox ICA PSV 68.3 cm/s Prox ICA EDV 19.9 cm/s Right Mid ICA Mid ICA PSV 78.9 cm/s Mid ICA EDV 25.5 cm/s Right Dist ICA Dist ICA PSV 70.8 cm/s Dist ICA EDV 22.4 cm/s Right Prox ECA Prox ECA PSV 82.6 cm/s Prox ECA EDV 10.6 cm/s Right Vertebral Vertebral PSV 60.9 cm/s Vertebral EDV 17.4 cm/s Right Prox SCA Prox SCA PSV 76.8 cm/s Right ICA/CCA RATIO ICA/CCA RATIO P 1.11 Left Prox CCA Prox CCA PSV 65.9 cm/s Prox CCA EDV 14.9 cm/s Left Mid CCA Mid CCA PSV 79.5 cm/s Mid CCA EDV 17.4 cm/s Left Dist CCA Dist CCA PSV 65.9 cm/s Dist CCA EDV 14.9 cm/s Left Prox ICA Prox [...] RATIO ICA/CCA RATIO P 1.38 <Electronic Signature> 05/22/2023 02:18 PM Hudson Polk M.D. USV VEIN MAPPING LOW MEDARDO Result Date: 05/21/2023 Vascular Report Pat.Name: KENDY SALCIDO Pat.ID: [id number] .Date: 05/21/2023 Refer.MD: AMADOR HELTON Exam Time: 3:43:00 PM Study Type:PVI VENOUS DUPLEX SCAN-LEGS BILAT Height: 62 in Age: 8 1945,77Y Sex: F Sonogrphr: Boo Kay RVT, [facility] Pat. Stat.:Inpatient CPT - 4: 74335 Venous Duplex LE/UE Reason for Study:Pre-op evaluation Race: W ++++++++++++++++++++++++++++++++++++ FINDINGS: ++++++++++++++++++++++++++++++++++++ Mapping Rt Low Ext: Right lower extremity visualized veins are patent and fully compressible with superficial vein diameters as listed. Unable to visualize the great saphenous from the saphenofemoral junction to the mid thigh vein. 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 No AV fistula is noted. Mapping Lt Low Ext: Left lower extremity veins are patent and fully compressible withsuperficial vein diameters as listed. ++++++++++++++++++++++++++++++++++++ MEASUREMENTS: +++++++++++ +++++++++++++++++++++++++ LEVEINS Right Dist Thigh Dist Thigh GSV 3.87 mm Right GSV Prox Calf GSV Prox Calf A 4.48 mm Right GSV Mid Calf GSV Mid Calf AP 3.74 mm Right GSV Dist Calf GSV Dist Calf A 4.67 mm Right SSV Prox Calf SSV Prox Calf A 3.29 mm Right Knee Knee GSV AP 4.12 mm Left SFJ SFJ GSV AP5.87 mm Left Prox Thigh Prox Thigh GSV [...] Dist Calf 2.9 mm Left SSV Mid Calf SSV Mid Calf AP 2.23 mm Left SSV Prox Calf SSV Prox Calf A 2.28 mm <Electronic Signature> 05/21/2023 06:48 PM Hudson Polk M.D. Results for orders placed or performed during the hospital encounter of 06/05/23 ECG 12 lead Narrative [facility] [address] [place] [address] Test Date: 2023-06-05 Pat Name: KENDY THAYER Department: 1 Room: [place] [address] Gender: Female Patient Educator: : 1945 Requested By: AHMET LEVI Order Number: [id number] Reading MD: Belinda Bocanegra Measurements Intervals [facility] Rate: 54 P: 63 OK: 140 QRS: 78 QRSD: 94 T: 68 QT: 488 QTc: 463 Interpretive Statements SINUS BRADYCARDIA STOCK JUDGING COACH ECG 12 lead Narrative [facility] [address] [place] [address] Test Date: 2023-06-06 Pat Name: KENDY SALCIDO Department: 1 Room: [id number] Gender: Female Patient Educator: Blair : 1945 Requested By: AHMET LEVI Order Number: [id number] Reading MD: Belinda Bocanegra Measurements Intervals [facility] Rate: 80 P: 58 OK: 116 QRS: 23 QRSD: 91 T: 59 QT: 404 QTc: 468 Interpretive Statements SINUS RHYTHM WITH SHORT OK INTERVAL NONSPECIFIC ST & T-WAVE ABNORMALITY STOCK JUDGING COACH Signed ENRIQUE HENLEY APRN 06/06/2023 Cosigned by Junior Streeter MD at 06/06/2023 4:56 PM LIVESTOCK JUDGING COACH STOCK JUDGING COACH STOCK JUDGING COACH Associated attestation - Junior Streeter MD - 06/06/2023 4:56 PM LIVESTOCK JUDGING COACH Images from the original note were not [...] #40 Atricure clip. SURGEON: AHMET LEVI MD CHUTE OPERATOR: Julien Berger BRIEF HISTORY: Kendy Salcido is [...] was elevated and the left atrial appendage wasclipped with a #40 atricure clip. Attention was [...] rewarmed. Atrial andventricular pacing wires,3 # 24 [place] chest tubes were placed. After adequate de-airing [...] LOSS: Minimal, cell saver. AHMET LEVI MD STOCK JUDGING COACH * Brief Op Note - Ahmet Levi MD - 06/05/2023 12:54 PM CST Brief CTS Postoperative Note Preop Diagnosis: CAD, H/O SVT Postop Diagnosis: Same Procedure: CABG x 3 SVG to OM1, RICHTER to LAD, RUSSEL to RCA, #40 Atricure clip Surgeon: AHMET LEVI MD Web Analyst: Julien Berger Findings: cad, poor veins Implants: #40 Atricure clip Specimens: none EBL: minimal, cell saver Complications: none AHMET LEVI MD HS Brief Op HSHSCORONARY ARTERY BYPASS, MARIA ANTONIA Procedure Note Kendy Salcido 06/05/2023 0700 Procedure(s) (LRB): CORONARY ARTERY BYPASS, MARIA ANTONIA (N/A) Surgeon(s): Ahmet Levi MD Web Analyst: Shaper Setter: Cathy Frost RN; Franchesca Berger WAX ENGRAVER; Juan Pablo Vera, LIVESTOCK JUDGING COACH Anesthesia: General Pre-Op Diagnosis: CAD Post-Op Diagnosis: Same Findings: cad Estimated Blood Loss: Minimal Specimens: None AHMET LEVI MD Date: 06/05/2023 Time: 12:56 PM STOCK JUDGING COACH documented in this encounter Plan of Treatment Upcoming Encounters Date Type Department Care Team (Late st Contact Info) Description 02/12/2025 11:30 AM CDT [facility] [address] [place] [id number] Jun Oscar, PART MAKER [address] [place] [address] Scheduled Orders Name Type Priority Associated Diagnoses Orde r Schedule BASIC METABOLIC PANEL Lab Routine S/P CABG x 3 Expected: 06/14/2023, Expires: 06/10/2024 documented as of this encounter Procedures Procedure Name Priority Date/Time Associated Diagnosis Comments POCT GLUCOSE - VENTURA DOCKED DEVICE Routine 06/11/2023 11:16 AM LIVESTOCK JUDGING COACH POCT GLUCOSE - VENTURA DOCKED DEVICE Routine 06/11/2023 6:05 AM LIVESTOCK JUDGING COACH XR CHEST PORTABLE Routine 06/11/2023 5:5 8 AM LIVESTOCK JUDGING COACH PROTHROMBIN TIME, VENOUS Routine 06/11/2023 5:13 AM LIVESTOCK JUDGING COACH BASIC METABOLIC PANEL Routine 06/11/2023 5:13 AM LIVESTOCK JUDGING COACH CBC W/DIFF AUTOMATED Routine 06/11/2023 5:13 AM LIVESTOCK JUDGING COACH MAGNESIUM Routine 06/11/2023 5:13 AM LIVESTOCK JUDGING COACH POCT GLUCOSE - VENTURA DOCKED DEVICE Routine 06/10/2023 9:07 PM LIVESTOCK JUDGING COACH PROTHROMBIN TIME, VENOUS Routine 06/10/2023 5:36 PM LIVESTOCK JUDGING COACH HEPATIC FUNCTION PANEL Routine 5:36 PM LIVESTOCK JUDGING COACH POCT GLUCOSE - VENTURA DOCKED DEVICE Routine 06/10/2023 11:46 AM LIVESTOCK JUDGING COACH XR CHEST PORTABLE Routine 06/10/2023 6:0 5 AM LIVESTOCK JUDGING COACH BASIC METABOLIC PANEL Routine 06/10/2023 5:25 AM LIVESTOCK JUDGING COACH CBC W/DIFF AUTOMATED Routine 06/10/2023 5:25 AM LIVESTOCK JUDGING COACH MAGNESIUM Routine 06/10/2023 5:25 AM LIVESTOCK JUDGING COACH POCT GLUCOSE - VENTURA DOCKED DEVICE Routine 06/10/2023 5:21 AM LIVESTOCK JUDGING COACH POCT GLUCOSE - VENTURA DOCKED DEVICE Routine 06/09/2023 8:56 PM LIVESTOCK JUDGING COACH POCT GLUCOSE - VENTURA DOCKED DEVICE Routine 06/09/2023 4:45 PM LIVESTOCK JUDGING COACH POCT GLUCOSE - VENTURA DOCKED DEVICE Routine 06/09/2023 11:06 AM LIVESTOCK JUDGING COACH BASIC METABOLIC PANEL Routine 06/09/2023 8:45 AM LIVESTOCK JUDGING COACH CBC W/DIFF AUTOMATED Routine 06/09/2023 8:45 AM LIVESTOCK JUDGING COACH MAGNESIUM Routine 06/09/2023 8:45 AM LIVESTOCK JUDGING COACH XR CHEST PORTABLE Routine 06/09/2023 6:3 3 AM LIVESTOCK JUDGING COACH POCT GLUCOSE - VENTURA DOCKED DEVICE Routine 06/09/2023 5:15 AM LIVESTOCK JUDGING COACH POCT GLUCOSE - VENTURA DOCKED DEVICE Routine 06/08/2023 9:21 PM LIVESTOCK JUDGING COACH ECG 12-LEAD Routine 06/08/2023 5:34 PM LIVESTOCK JUDGING COACH ECG 12-LEAD STAT 06/08/2023 5:34 PM LIVESTOCK JUDGING COACH POCT GLUCOSE - VENTURA DOCKED DEVICE Routine 06/08/2023 4:29 PM LIVESTOCK JUDGING COACH POCT GLUCOSE - VENTURA DOCKED DEVICE Routine 06/08/2023 11:10 AM LIVESTOCK JUDGING COACH PROTHROMBIN TIME, VENOUS Routine 06/08/2023 6:20 AM LIVESTOCK JUDGING COACH BASIC METABOLIC PANEL Routine 06/08/2023 6:20 AM LIVESTOCK JUDGING COACH CBC W/DIFF AUTOMATED Routine 06/08/2023 6:20 AM LIVESTOCK JUDGING COACH MAGNESIUM Routine 06/08/2023 6:20 AM LIVESTOCK JUDGING COACH POCT GLUCOSE - VENTURA DOCKED DEVICE Routine 06/08/2023 6:14 AM LIVESTOCK JUDGING COACH XR CHEST PORTABLE Routine 06/08/2023 4:3 8 AM LIVESTOCK JUDGING COACH POCT GLUCOSE - VENTURA DOCKED DEVICE Routine 06/07/2023 11:12 PM LIVESTOCK JUDGING COACH POCT GLUCOSE - VENTURA DOCKED DEVICE Routine 06/07/2023 4:03 PM LIVESTOCK JUDGING COACH POCT GLUCOSE - VENTURA DOCKED DEVICE Routine 06/07/2023 10:59 AM LIVESTOCK JUDGING COACH POCT GLUCOSE - VENTURA DOCKED DEVICE Routine 06/07/2023 6:21 AM LIVESTOCK JUDGING COACH XR CHEST PORTABLE Routine 06/07/2023 5:1 7 AM LIVESTOCK JUDGING COACH PROTHROMBIN TIME, VENOUS Routine 06/07/2023 3:10 AM LIVESTOCK JUDGING COACH BASIC METABOLIC PANEL Routine 06/07/2023 3:10 AM LIVESTOCK JUDGING COACH CBC W/DIFF AUTOMATED Routine 06/07/2023 3:10 AM LIVESTOCK JUDGING COACH MAGNESIUM Routine 06/07/2023 3:10 AM LIVESTOCK JUDGING COACH POCT GLUCOSE - VENTURA DOCKED DEVICE Routine 06/06/2023 8:09 PM LIVESTOCK JUDGING COACH POCT GLUCOSE - VENTURA DOCKED DEVICE Routine 06/06/2023 4:36 PM LIVESTOCK JUDGING COACH POCT GLUCOSE - VENTURA DOCKED DEVICE Routine 06/06/2023 10:06 AM LIVESTOCK JUDGING COACH POCT GLUCOSE - VENTURA DOCKED DEVICE Routine 06/06/2023 8:16 AM LIVESTOCK JUDGING COACH POCT GLUCOSE - VENTURA DOCKED DEVICE Routine 06/06/2023 6:54 AM LIVESTOCK JUDGING COACH ECG 12-LEAD Routine 06/06/2023 5:28 AM LIVESTOCK JUDGING COACH POCT GLUCOSE - VENTURA DOCKED DEVICE Routine 06/06/2023 5:26 AM LIVESTOCK JUDGING COACH XR CHEST PORTABLE Routine 06/06/2023 5:1 1 AM LIVESTOCK JUDGING COACH POCT GLUCOSE - VENTURA DOCKED DEVICE Routine 06/06/2023 4:20 AM LIVESTOCK JUDGING COACH PROTHROMBIN TIME, VENOUS Routine 06/06/2023 4:20 AM LIVESTOCK JUDGING COACH BASIC METABOLIC PANEL Routine 06/06/2023 4:20 AM LIVESTOCK JUDGING COACH CBC W/DIFF AUTOMATED Routine 06/06/2023 4:20 AM LIVESTOCK JUDGING COACH MAGNESIUM Routine 06/06/2023 4:20 AM LIVESTOCK JUDGING COACH POCT GLUCOSE - VENTURA DOCKED DEVICE Routine 06/06/2023 3:06 AM LIVESTOCK JUDGING COACH POCT GLUCOSE - VENTURA DOCKED DEVICE Routine 06/06/2023 2:02 AM LIVESTOCK JUDGING COACH POCT GLUCOSE - VENTURA DOCKED DEVICE Routine 06/06/2023 1:20 AM LIVESTOCK JUDGING COACH POCT GLUCOSE - VENTURA DOCKED DEVICE Routine 06/06/2023 12:04 AM LIVESTOCK JUDGING COACH POCT GLUCOSE - VENTURA DOCKED DEVICE Routine 06/05/2023 11:07 PM LIVESTOCK JUDGING COACH POCT GLUCOSE - VENTURA DOCKED DEVICE Routine 06/05/2023 10:14 PM LIVESTOCK JUDGING COACH POCT ACUTE ARTERIAL PANEL Routine 06/05/2023 9:11 PM LIVESTOCK JUDGING COACH POCT GLUCOSE - VENTURA DOCKED DEVICE Routine 06/05/2023 9:09 PM LIVESTOCK JUDGING COACH POCT GLUCOSE - VENTURA DOCKED DEVICE Routine 06/05/2023 8:02 PM LIVESTOCK JUDGING COACH POCT EG7 BLD GAS ARTERIAL TEMP TSERING Routine 06/05/2023 7:03 PM LIVESTOCK JUDGING COACH POCT GLUCOSE - VENTURA DOCKED DEVICE Routine 06/05/2023 7:01 PM LIVESTOCK JUDGING COACH POCT GLUCOSE - VENTURA DOCKED DEVICE Routine 06/05/2023 6:15 PM LIVESTOCK JUDGING COACH POCT ACUTE ARTERIAL PANEL Routine 06/05/2023 5:33 PM LIVESTOCK JUDGING COACH POCT ACUTE ARTERIAL PANEL Routine 06/05/2023 5:08 PM LIVESTOCK JUDGING COACH POCT GLUCOSE - VENTURA DOCKED DEVICE Routine 06/05/2023 5:05 PM LIVESTOCK JUDGING COACH POCT ACUTE ARTERIAL PANEL Routine 06/05/2023 4:19 PM LIVESTOCK JUDGING COACH POCT GLUCOSE - VENTURA DOCKED DEVICE Routine 06/05/2023 4:17 PM LIVESTOCK JUDGING COACH POCT ACUTE ARTERIAL PANEL Routine 06/05/2023 3:04 PM LIVESTOCK JUDGING COACH POCT GLUCOSE - VENTURA DOCKED DEVICE Routine 06/05/2023 3:02 PM LIVESTOCK JUDGING COACH USE TRANSESOPHAGEAL ECHO Today 06/05/2023 2:47 PM LIVESTOCK JUDGING COACH POCT ACUTE ARTERIAL PANEL Routine 06/05/2023 2:05 PM LIVESTOCK JUDGING COACH POCT GLUCOSE - VENTURA DOCKED DEVICE Routine 06/05/2023 2:03 PM LIVESTOCK JUDGING COACH ECG 12-LEAD Routine 06/05/2023 1:42 PM LIVESTOCK JUDGING COACH XR CHEST PORTABLE STAT 06/05/2023 1:2 6 PM LIVESTOCK JUDGING COACH POCT ACUTE ARTERIAL PANEL Routine 06/05/2023 1:23 PM LIVESTOCK JUDGING COACH MAGNESIUM STAT 06/05/2023 1:21 PM LIVESTOCK JUDGING COACH POCT GLUCOSE - VENTURA DOCKED DEVICE Routine 06/05/2023 1:20 PM LIVESTOCK JUDGING COACH POCT ACUTE ARTERIAL PANEL Routine 06/05/2023 12:38 PM LIVESTOCK JUDGING COACH POCT GLUCOSE - VENTURA DOCKED DEVICE Routine 06/05/2023 12:36 PM LIVESTOCK JUDGING COACH POCT ACUTE ARTERIAL PANEL Routine 06/05/2023 11:51 AM LIVESTOCK JUDGING COACH POCT GLUCOSE - VENTURA DOCKED DEVICE Routine 06/05/2023 11:49 AM LIVESTOCK JUDGING COACH POCT ACUTE ARTERIAL PANEL Routine 06/05/2023 11:31 AM LIVESTOCK JUDGING COACH POCT GLUCOSE - VENTURA DOCKED DEVICE Routine 06/05/2023 11:29 AM LIVESTOCK JUDGING COACH POCT ACUTE ARTERIAL PANEL Routine 06/05/2023 11:12 AM LIVESTOCK JUDGING COACH POCT GLUCOSE - VENTURA DOCKED DEVICE Routine 06/05/2023 11:10 AM LIVESTOCK JUDGING COACH TRANSFUSE RED BLOOD CELLS Routine 06/05/2023 10:45 AM LIVESTOCK JUDGING COACH TRANSFUSE RED BLOOD CELLS Routine 06/05/2023 10:45 AM LIVESTOCK JUDGING COACH POCT ACUTE ARTERIAL PANEL Routine 06/05/2023 10:32 AM LIVESTOCK JUDGING COACH POCT GLUCOSE - VENTURA DOCKED DEVICE Routine 06/05/2023 10:30 AM LIVESTOCK JUDGING COACH POCT ACUTE ARTERIAL PANEL Routine 06/05/2023 7:15 AM LIVESTOCK JUDGING COACH POCT GLUCOSE - VENTURA DOCKED DEVICE Routine 06/05/2023 7:13 AM LIVESTOCK JUDGING COACH CORONARY ARTERY BYPASS 6:45 AM LIVESTOCK JUDGING COACH CAD MAGNESIUM Routine 06/05/2023 5:43 AM LIVESTOCK JUDGING COACH documented in this encounter Results * POCT glucose (06/11/2023 11:16 AM LIVESTOCK JUDGING COACH) GLUCOSE POC 104 70 - 109 06/11/2023 11:39 AM LIVESTOCK JUDGING COACH [facility] 06/11/2023 11:1 6 AM LIVESTOCK JUDGING COACH Ahmet Levi MD POCT ORDERABLES - DEVICE Fi nal Result Performing Organization Address City/[facility]/ZIP Co de Phone Number [facility] [address] [place] [address], [phone] * POCT glucose (06/11/2023 6:05 AM LIVESTOCK JUDGING COACH) GLUCOSE POC 109 70 - 109 06/11/2023 6:07 AM LIVESTOCK JUDGING COACH [facility] 06/11/2023 6:05 AM LIVESTOCK JUDGING COACH us Ahmet Levi MD POCT ORDERABLES - DEVICE Fi nal Result Performing Organization Address [facility]/ZIP Co de Phone Number [facility] [address] [place] [address], [phone] * XR CHEST PORTABLE (06/11/2023 5:58 AM LIVESTOCK JUDGING COACH) Anatomical Region Laterality Modality Chest Radiographic Fabiola ging 06/11/2023 6:55 AM LIVESTOCK JUDGING COACH Impressions 06/11/2023 6:55 AM LIVESTOCK JUDGING COACH IMPRESSION: Improving postoperative chest Ordered By: MARGARET SILVER Interpreted By: Javier Mayfield MD, 06/11/2023 6:55 AM Narrative 06/11/2023 6:55 AM LIVESTOCK JUDGING COACH SINGLE VIEW OF THE CHEST Clinical history: [...] Mayfield MD, 06/11/2023 6:55 AM Margaret Silver [facility] Final Result * (ABNORMAL) PROTIME/INR, VENOUS - Daily (06/11/2023 5:13 AM LIVESTOCK JUDGING COACH) PROTIME 17.7(H) 9.4 - 12.5 SEC 06/11/2023 5:51 AM LIVESTOCK JUDGING COACH [facility] INR 1.6(H) 0.8 - 1.1 06/11/2023 5:51 AM LIVESTOCK JUDGING COACH [facility] 06/11/2023 5:13 AM LIVESTOCK JUDGING COACH Ahmet Levi MD LABORATORY Final Resul t [facility] [address] [place] [address], [phone] * (ABNORMAL) CBC W/DIFF AUTOMATED (06/11/2023 5:13 AM LIVESTOCK JUDGING COACH) [facility] WBC 7.41 4.00 - 10.80 x10'3/uL 06/11/2023 5:28 AM [facility] RBC 3.70(L) 4.10 - 5.40 x10'6/uL 06/11/2023 5:28 AM [facility] HGB 11.9(L) 12.0 - 16.0 G/DL 06/11/2023 5:28 AM [facility] HCT 35.4(L) 36.0 - 47.0 % 06/11/2023 5:28 AM [facility] MCV 95.7 78.0 - 100.0 FL 06/11/2023 5:28 AM [facility] MCH 32.2(H) 27.0 - 31.0 PG 06/11/2023 5:28 AM [facility] MCHC 33.6 33.0 - 36.0 G/DL 06/11/2023 5:28 AM [facility] RDW 13.0 11.5 - 14.5 % 06/11/2023 5:28 AM [facility] PLT 211 150 - 350 x10'3/uL 06/11/2023 5:28 AM [facility] MPV 9.8 7.4 - 10.4 FL 06/11/2023 5:28 AM [facility] ABS. NEUTROPHILS 5.09 1.60 - 8.30 x10'3/uL 06/11/2023 5:28 AM [facility] ABS. LYMPHOCYTES 0.99 0.80 - 4.70 x10'3/uL 06/11/2023 5:28 AM [facility] ABS. MONOCYTES 1.14 0.00 - 1.50 x10'3/uL 06/11/2023 5:28 AM [facility] ABS. EOSINOPHILS 0.10 0.00 - 0.40 x10'3/uL 06/11/2023 5:28 AM [facility] ABS. BASOPHILS 0.05 0.00 - 0.20 x10'3/uL 06/11/2023 5:28 AM [facility] ABS. IMMATURE GRANULOCYTES 0.04(H) 0.00 - 0.03 x10'3/uL 06/11/2023 5:28 AM [facility] ABS. NUCLEATED RBC'S 0.00 0.0 x10'3/uL 06/11/2023 5:28 AM [facility] 06/11/2023 5:13 AM [facility] Margaret Silver [facility] Final Result [facility] [address] [place] [address], [phone] * (ABNORMAL) BASIC METABOLIC PANEL (06/11/2023 5:13 AM LIVESTOCK JUDGING COACH) SODIUM S/P/B 131(L) 136 - 145 MMOL/L 06/11/2023 5:57 AM [facility] POTASSIUM S/P/B 3.7 3.5 - 5.1 MMOL/L 06/11/2023 5:57 AM [facility] CHLORIDE S/P/B 97(L) 98 - 107 MMOL/L 06/11/2023 5:57 AM [facility] CO2 28.6 21.0 - 32.0 MMOL/L 06/11/2023 5:57 AM [facility] GLUCOSE 106 74 - 106 MG/DL 06/11/2023 5:57 AM [facility] BUN 16 7 - 18 MG/DL 06/11/2023 5:57 AM LIVESTOCK JUDGING COACH [facility] CREATININE S/P/B 0.81 0.55 - 1.02 MG/DL 06/11/2023 5:57 AM [facility] CALCIUM S/P/B 8.3(L) 8.5 - 10.1 MG/DL 06/11/2023 5:57 AM [facility] ANION GAP 5.4 5.0 - 15.0 MMOL/L 06/11/2023 5:57 AM [facility] OSMOLALITY (CALC) 274 MOSM/KG 024 5:57 AM [facility] Comment:REFERENCE RANGE NOT ESTABLISHED GFR ESTIMATE 75(L) >90 ML/MIN/1. 73 M2 06/11/2023 5:57 AM [facility] GFR NOTES GFR REFERENCE S: 06/11/2023 5:57 AM [facility] Comment: THE ESTIMATED GFR IS CALCULATED [...] FAILURE: <15 ml/min/1.73 m2 06/11/2023 5:13 AM LIVESTOCK JUDGING COACH us Margaret Silver [facility] Final Result [facility] [address] [place] [address], [phone] * MAGNESIUM (06/11/2023 5:13 AM LIVESTOCK JUDGING COACH) MAGNESIUM 2.0 1.6 - 2.6 MG/DL 06/11/2023 5:57 AM LIVESTOCK JUDGING COACH [facility] 06/11/2023 5:13 AM LIVESTOCK JUDGING COACH Margaret Silver [facility] Final Result Performing Organization Address [facility] Co de Phone Number [facility] [address] [place] [address], [phone] * (ABNORMAL) POCT glucose (06/10/2023 9:07 PM LIVESTOCK JUDGING COACH) [facility] GLUCOSE POC 149(H) 70 - 109 06/10/2023 9:13 PM LIVESTOCK JUDGING COACH [facility] 06/10/2023 9:07 PM LIVESTOCK JUDGING COACH Ahmet Levi MD POCT ORDERABLES - DEVICE Fi nal Result Performing Organization Address [facility] Co de Phone Number [facility] [address] [place] [address], [phone] * (ABNORMAL) PROTIME/INR, VENOUS - Today (06/10/2023 5:36 PM LIVESTOCK JUDGING COACH) [facility] PROTIME 14.8(H) 9.4 - 12.5 SEC 06/10/2023 6:24 PM LIVESTOCK JUDGING COACH [facility] INR 1.3(H) 0.8 - 1.1 06/10/2023 6:24 PM LIVESTOCK JUDGING COACH [facility] 06/10/2023 5:36 PM LIVESTOCK JUDGING COACH us Ahmet Levi MD LABORATORY Final Resul t Performing Organization Address [facility] Co de Phone Number [facility] [address] [place] [address], [phone] * (ABNORMAL) HEPATIC FUNCTION PANEL (06/10/2023 5:36 PM LIVESTOCK JUDGING COACH) BILIRUBIN TOTAL S/P/B 1.0 0.2 - 1.0 MG/DL 06/10/2023 6:28 PM LIVESTOCK JUDGING COACH [facility] BILIRUBIN DIRECT S/P/B 0.3(H) 0.0 - 0.2 MG/DL 06/10/2023 6:28 PM LIVESTOCK JUDGING COACH [facility] ALKALINE PHOSPHATASE S/P/B 56 55 - 142 U/L 06/10/2023 6:28 PM LIVESTOCK JUDGING COACH [facility] AST 43(H) 15 - 37 U/L 06/10/2023 6:28 PM LIVESTOCK JUDGING COACH [facility] ALT 33 13 - 56 U/L 06/10/2023 6:28 PM LIVESTOCK JUDGING COACH [facility] TOTAL PROTEIN S/P/B 6.2(L) 6.4 - 8.2 G/DL 06/10/2023 6:28 PM LIVESTOCK JUDGING COACH [facility] ALBUMIN S/P/B 2.5(L) 3.4 - 5.0 G/DL 06/10/2023 6:28 PM LIVESTOCK JUDGING COACH [facility] 06/10/2023 5:36 PM LIVESTOCK JUDGING COACH us Ahmet Levi MD LABORATORY Final Resul t Performing Organization Address [facility] Co de Phone Number [facility] [address] [place], [place] [id number] [place] [address] [phone] * (ABNORMAL) POCT glucose (06/10/2023 11:46 AM LIVESTOCK JUDGING COACH) GLUCOSE POC 112(H) 70 - 109 06/10/2023 12:27 PM LIVESTOCK JUDGING COACH [facility] 06/10/2023 11:4 6 AM LIVESTOCK JUDGING COACH us Ahmet Levi MD POCT ORDERABLES - DEVICE Fi nal Result Performing Organization Address [facility] Co de Phone Number [facility] [address] [place] [phone], [phone] * XR CHEST PORTABLE (06/10/2023 6:05 AM LIVESTOCK JUDGING COACH) Anatomical Region Laterality Modality Chest Radiographic Fabiola ging 06/10/2023 7:27 AM LIVESTOCK JUDGING COACH Impressions 06/10/2023 7:27 AM LIVESTOCK JUDGING COACH IMPRESSION: Small left pleural effusion with associated atelectasis or infiltrate. Referred By: ?? Interpreted By: Cl Nichols MD, 06/10/2023 7:27 AM Narrative 06/10/2023 7:27 AM LIVESTOCK JUDGING COACH Examination: XR CHEST PORTABLE Exam time: 06/10/2023 [...] By: Cl Nichols MD, 06/10/2023 7:27 AM Margaret Silver [facility] Final Result * (ABNORMAL) CBC W/DIFF AUTOMATED (06/10/2023 5:25 AM LIVESTOCK JUDGING COACH) WBC 5.44 4.00 - 10.80 x10'3/uL 06/10/2023 5:43 AM [facility] RBC 3.20(L) 4.10 - 5.40 x10'6/uL 06/10/2023 5:43 AM [facility] HGB 10.2(L) 12.0 - 16.0 G/DL 06/10/2023 5:43 AM [facility] HCT 30.8(L) 36.0 - 47.0 % 06/10/2023 5:43 AM [facility] MCV 96.3 78.0 - 100.0 FL 06/10/2023 5:43 AM [facility] MCH 31.9(H) 27.0 - 31.0 PG 06/10/2023 5:43 AM [facility] MCHC 33.1 33.0 - 36.0 G/DL 06/10/2023 5:43 AM [facility] RDW 12.9 11.5 - 14.5 % 06/10/2023 5:43 AM [facility] PLT 162 150 - 350 x10'3/uL 06/10/2023 5:43 AM [facility] MPV 10.2 7.4 - 10.4 FL 06/10/2023 5:43 AM [facility] ABS. NEUTROPHILS 4.10 1.60 - 8.30 x10'3/uL 06/10/2023 5:43 AM [facility] ABS. LYMPHOCYTES 0.52(L) 0.80 - 4.70 x10'3/uL 06/10/2023 5:43 AM [facility] ABS. MONOCYTES 0.69 0.00 - 1.50 x10'3/uL 06/10/2023 5:43 AM [facility] ABS. EOSINOPHILS 0.10 0.00 - 0.40 x10'3/uL 06/10/2023 5:43 AM [facility] ABS. BASOPHILS 0.02 0.00 - 0.20 x10'3/uL 06/10/2023 5:43 AM [facility] ABS. IMMATURE GRANULOCYTES 0.01 0.00 - 0.03 x10'3/uL 06/10/2023 5:43 AM [facility] ABS. NUCLEATED RBC'S 0.00 0.0 x10'3/uL 06/10/2023 5:43 AM [facility] 06/10/2023 5:25 AM LIVESTOCK JUDGING COACH Margaret Silver [facility] Final Result [facility] [address] [place] [address], [phone] * (ABNORMAL) BASIC METABOLIC PANEL (06/10/2023 5:25 AM LIVESTOCK JUDGING COACH) SODIUM S/P/B 133(L) 136 - 145 MMOL/L 06/10/2023 6:10 AM [facility] POTASSIUM S/P/B 3.2(L) 3.5 - 5.1 MMOL/L 06/10/2023 6:10 AM [facility] CHLORIDE S/P/B 97(L) 98 - 107 MMOL/L 06/10/2023 6:10 AM [facility] CO2 29.8 21.0 - 32.0 MMOL/L 06/10/2023 6:10 AM [facility] GLUCOSE 100 74 - 106 MG/DL 06/10/2023 6:10 AM [facility] BUN 14 7 - 18 MG/DL 06/10/2023 6:10 AM [facility] CREATININE S/P/B 0.63 0.55 - 1.02 MG/DL 06/10/2023 6:10 AM [facility] CALCIUM S/P/B 7.8(L) 8.5 - 10.1 MG/DL 06/10/2023 6:10 AM LIVESTOCK JUDGING COACH [facility] ANION GAP 6.2 5.0 - 15.0 MMOL/L 06/10/2023 6:10 AM LIVESTOCK JUDGING COACH [facility] OSMOLALITY (CALC) 277 MOSM/KG 024 6:10 AM LIVESTOCK JUDGING COACH [facility] Comment:REFERENCE RANGE NOT ESTABLISHED GFR ESTIMATE >90 >90 ML/MIN/1. 73 M2 06/10/2023 6:10 AM LIVESTOCK JUDGING COACH [facility] GFR NOTES GFR REFERENCE S: 06/10/2023 6:10 AM LIVESTOCK JUDGING COACH [facility] Comment: THE ESTIMATED GFR IS [...] m2 G5,KIDNEY FAILURE: <15 ml/min/1.73 m2 06/10/2023 5:25 AM LIVESTOCK JUDGING COACH us Margaret [facility] Final Result Performing Organization Address City/[facility]/ZIP Co de Phone Number [facility] [address] [place] [address], [phone] * MAGNESIUM (06/10/2023 5:25 AM LIVESTOCK JUDGING COACH) MAGNESIUM 2.2 1.6 - 2.6 MG/DL 06/10/2023 6:10 AM [employer]STOCK JUDGING COACH [facility] 06/10/2023 5:25 AM LIVESTOCK JUDGING COACH Margaret Silver [facility] Final Result Performing Organization Address City/State/[facility] Co de Phone Number [facility] [address] [place] [address], [place] [phone] * (ABNORMAL) POCT glucose (06/10/2023 5:21 AM LIVESTOCK JUDGING COACH) GLUCOSE POC 112(H) 70 - 109 06/10/2023 5:38 AM [employer]IVESTOCK JUDGING COACH [facility] 06/10/2023 5:21 AM LIVESTOCK JUDGING COACH us Ahmet Levi MD POCT ORDERABLES - DEVICE Fi nal Result Performing Organization Address [facility] Co de Phone Number [facility] [address] [place] [address], [place] [phone] * POCT glucose (06/09/2023 8:56 PM [employer]IVESTOCK JUDGING COACH) GLUCOSE POC 101 70 - 109 06/09/2023 9:00 PM [employer]STOCK JUDGING COACH [facility] 06/09/2023 8:56 PM [employer]IVESTOCK JUDGING COACH us Ahmet Levi MD POCT ORDERABLES - DEVICE Fi nal Result Performing Organization Address [facility] Co de Phone Number [facility] [address] [place] [address], [place] [phone] * POCT glucose (06/09/2023 4:45 PM [employer]IVESTOCK JUDGING COACH) GLUCOSE POC 95 70 - 109 06/09/2023 4:51 PM [employer]ST[employer] JUDGING COACH [facility] 06/09/2023 4:45 PM [employer]STOCK JUDGING COACH us Ahmet Levi MD POCT ORDERABLES - DEVICE Fi nal Result Performing Organization Address [facility] Co de Phone Number [facility] [address] [place] [address], [place] [phone] * (ABNORMAL) POCT glucose (06/09/2023 11:06 AM LIVESTOCK JUDGING COACH) Pathologist [facility] GLUCOSE POC 123(H) 70 - 109 06/09/2023 11:26 AM [employer]STOCK JUDGING COACH [facility] 06/09/2023 11:0 6 AM LIVESTOCK JUDGING COACH Ahmet Levi MD POCT ORDERABLES - DEVICE Fi nal Result [facility] [address] [place] [address], [phone] * (ABNORMAL) CBC W/DIFF AUTOMATED (06/09/2023 8:45 AM LIVESTOCK JUDGING COACH) [facility] WBC 6.65 4.00 - 10.80 x10'3/uL 06/09/2023 9:00 AM [facility] RBC 3.17(L) 4.10 - 5.40 x10'6/uL 06/09/2023 9:00 AM [facility] HGB 10.3(L) 12.0 - 16.0 G/DL 06/09/2023 9:00 AM [facility] HCT 30.6(L) 36.0 - 47.0 % 06/09/2023 9:00 AM [facility] MCV 96.5 78.0 - 100.0 FL 06/09/2023 9:00 AM [facility] MCH 32.5(H) 27.0 - 31.0 PG 06/09/2023 9:00 AM [facility] MCHC 33.7 33.0 - 36.0 G/DL 06/09/2023 9:00 AM [facility] RDW 13.2 11.5 - 14.5 % 06/09/2023 9:00 AM [facility] PLT 144(L) 150 - 350 x10'3/uL 06/09/2023 9:00 AM [facility] MPV 10.4 7.4 - 10.4 FL 06/09/2023 9:00 AM [facility] ABS. NEUTROPHILS 5.18 1.60 - 8.30 x10'3/uL 06/09/2023 9:00 AM [facility] ABS. LYMPHOCYTES 0.68(L) 0.80 - 4.70 x10'3/uL 06/09/2023 9:00 AM [facility] ABS. MONOCYTES 0.73 0.00 - 1.50 x10'3/uL 06/09/2023 9:00 AM [facility] ABS. EOSINOPHILS 0.02 0.00 - 0.40 x10'3/uL 06/09/2023 9:00 AM [facility] ABS. BASOPHILS 0.01 0.00 - 0.20 x10'3/uL 06/09/2023 9:00 AM [facility] ABS. IMMATURE GRANULOCYTES 0.03 0.00 - 0.03 x10'3/uL 06/09/2023 9:00 AM [facility] ABS. NUCLEATED RBC'S 0.00 0.0 x10'3/uL 06/09/2023 9:00 AM [facility] 06/09/2023 8:45 AM [employer]IVEST[employer] JUDGING COACH Margaret Silver [facility] Final Result [facility] [address] [place] [address], [phone] * (ABNORMAL) BASIC METABOLIC PANEL (06/09/2023 8:45 AM LIVESTOCK JUDGING COACH) SODIUM S/P/B 134(L) 136 - 145 MMOL/L 06/09/2023 9:24 AM [facility] POTASSIUM S/P/B 3.9 3.5 - 5.1 MMOL/L 06/09/2023 9:24 AM [facility] [facility] Comment:MILD HEMOLYSIS, RESU LT MAY BE AFFECTED. CHLORIDE S/P/B 99 98 - 107 MMOL/L 06/09/2023 9:24 AM [facility] CO2 30.2 21.0 - 32.0 MMOL/L 06/09/2023 9:24 AM [facility] GLUCOSE 113(H) 74 - 106 MG/DL 06/09/2023 9:24 AM [facility] BUN 20(H) 7 - 18 MG/DL 06/09/2023 9:24 AM [facility] CREATININE S/P/B 0.72 0.55 - 1.02 MG/DL 06/09/2023 9:24 AM [facility] CALCIUM S/P/B 7.9(L) 8.5 - 10.1 MG/DL 06/09/2023 9:24 AM [facility] ANION GAP 4.8(L) 5.0 - 15.0 MMOL/L 06/09/2023 9:24 AM [facility] OSMOLALITY (CALC) 281 MOSM/KG 024 9:24 AM [facility] Comment:REFERENCE RANGE NOT ESTABLISHED GFR ESTIMATE 86(L) >90 ML/MIN/1. 73 M2 06/09/2023 9:24 AM [facility] GFR NOTES GFR REFERENCE S: 06/09/2023 9:24 AM [facility] Comment: THE ESTIMATED GFR IS CALCULATED [...] FAILURE: <15 ml/min/1.73 m2 06/09/2023 8:45 AM LIVESTOCK JUDGING COACH Margaret Handtle [facility] DEBE[facility] LABORATORY Final Result Performing Organization Address [facility] de Phone Number [facility] [address] [place] [address], [place] [phone] * MAGNESIUM (06/09/2023 8:45 AM LIVESTOCK JUDGING COACH) MAGNESIUM 1.9 1.6 - 2.6 MG/DL 06/09/2023 9:24 AM LIVESTOCK JUDGING COACH [facility] Comment:RESULT QUESTIONABLE DUE TO HEMOLYSIS, RECOMMEND RECOLLECTION. 06/09/2023 8:45 AM LIVESTOCK JUDGING COACH Margaret Handtle [facility] Final Result Performing Organization Address [facility] Phone Number [facility] [address] [place] [address], [place] [phone] * XR CHEST PORTABLE (06/09/2023 6:33 AM LIVESTOCK JUDGING COACH) Anatomical Region Laterality Modality Chest Radiographic Fabiola ging 06/09/2023 7:01 AM LIVESTOCK JUDGING COACH Impressions 06/09/2023 7:02 AM LIVESTOCK JUDGING COACH IMPRESSION: Mild right basilar atelectasis or infiltrate. ??There may be a small right pleural effusion as well. Referred By: ?? Interpreted By: Cl Nichols MD, 06/09/2023 7:01 AM Narrative 06/09/2023 7:02 AM LIVESTOCK JUDGING COACH Examination: XR CHEST PORTABLE Exam time: 06/09/2023 [...] Nichols MD, 06/09/2023 7:01 AM Margaret Silver LEGUILLON DEBEADER GENERAL IMAGING Final Result * (ABNORMAL) POCT glucose (06/09/2023 5:15 AM LIVESTOCK JUDGING COACH) GLUCOSE POC 113(H) 70 - 109 06/09/2023 5:57 AM LIVESTOCK JUDGING COACH [facility] 06/09/2023 5:15 AM LIVESTOCK JUDGING COACH Ahmet Levi MD POCT ORDERABLES - DEVICE Fi nal Result [facility] [address] [place] [address], [phone] * (ABNORMAL) POCT glucose (06/08/2023 9:21 PM LIVESTOCK JUDGING COACH) GLUCOSE POC 137(H) 70 - 109 06/08/2023 9:34 PM LIVESTOCK JUDGING COACH [facility] 06/08/2023 9:21 PM LIVESTOCK JUDGING COACH us Ahmet Levi MD POCT ORDERABLES - DEVICE Fi nal Result [facility] [address] [place] [address], [phone] * ECG 12 lead (06/08/2023 5:34 PM LIVESTOCK JUDGING COACH) 06/08/2023 5:34 PM LIVESTOCK JUDGING COACH Narrative [facility] - 06/09/2023 9:51 AM LIVESTOCK JUDGING COACH ? [facility] ?[address], [place] ??[address] ? Test Date: ?2023-06-08 Pat Name: ? KENDY SALCIDO ? Department: ?? 1 ? Room: ? 602AA Gender: ? Female ? Patient Educator: ?? Micah : ?1945 ? Requested By: MARGARET SILVER Order Number: [id number] ? Gerard NUNN: ?? Belinda Bocanegra ? Measurements Intervals ?[facility] ? Rate: ? 144 ?P: ? OK: ? 0 ?QRS: ?57 QRSD: ? 94 ? T: ?212 QT: ? 279 ? QTc: ?433 ? Interpretive Statements ATRIAL FIBRILLATION WITH RAPID VENTRICULAR RESPONSE MODERATE T-WAVE ABNORMALITY, CONSIDER LATERAL ISCHEMIA ??[-0.1+ mV T-WAVE IN I/aVL/V5/V6] MODERATE T-WAVE ABNORMALITY, CONSIDER INFERIOR ISCHEMIA ??[-0.1+ mV T-WAVE IN II/aVF] STOCK JUDGING COACH Procedure Note Belinda Bocanegra MD - 06/09/2023 [place] [address] [place] [address] Test Date: 2023-06-08 Pat Name: KENDY SALCIDO Department: 1 [facility] Patient Educator: Micah : 1945 Requested By: MARGARET SILVER Order Number: [id number] Gerard MD: Belinda Bocanegra Measurements Intervals [facility] Rate: 144 P: OK: 0 QRS: 57 QRSD: 94 T: 212 QT: 279 QTc: 433 Interpretive Statements ATRIAL FIBRILLATION WITH RAPID VENTRICULAR RESPONSE MODERATE T-WAVE ABNORMALITY, CONSIDER LATERAL ISCHEMIA [-0.1+ mV T-WAVEIN I/aVL/V5/V6] MODERATE T-WAVE ABNORMALITY, CONSIDER INFERIOR ISCHEMIA [-0.1+ mV T-WAVEIN II/aVF] STOCK JUDGING COACH Margaret Silver LEGUILLON DEBEADER ECG ORDERABLES Final Result [facility] * ECG 12 lead (06/08/2023 5:34 PM LIVESTOCK JUDGING COACH) 06/08/2023 5:34 PM LIVESTOCK JUDGING COACH Narrative [facility] - 06/09/2023 9:51 AM LIVESTOCK JUDGING COACH ? [facility] ?[address], [place] ??[address] ? Test Date: ?2023-06-08 Pat Name: ? KENDY SALCIDO ? Department: ?? 1 ? Room: ? 602AA Gender: ? Female ? Patient Educator: ?? Micah : ?1945 ? Requested By: MARGARET SILVER Order Number: [id number] ? Reading MD: ?? Belinda Bocanegra ? Measurements Intervals ?[facility] ? Rate: ? 146 ?P: ? OK: ? 0 ?QRS: ?57 QRSD: ? 96 ? T: ?233 QT: ? 275 ? QTc: ?430 ? Interpretive Statements ATRIAL FIBRILLATION WITH RAPID VENTRICULAR RESPONSE ST DEVIATION AND MODERATE T-WAVE ABNORMALITY, CONSIDER LATERAL ISCHEMIA [-0.1+ mV T-WAVE IN I/aVL/V5/V6] ST DEVIATION AND MODERATE T-WAVE ABNORMALITY, CONSIDER INFERIOR ISCHEMIA [-0.1+ mV T-WAVE IN II/aVF] STOCK JUDGING COACH Procedure Note Belinda Bocanegra MD - 06/09/2023 [facility] [address] [place] [address] Test Date: 2023-06-08 Pat Name: KENDY SALCIDO Department: 1 Room: 60A Gender: Female Patient Educator: Micah : 1945 Requested By: MARGARET SILVER Order Number: [id number] Reading MD: Belinda Bocanegra Measurements Intervals [facility] Rate: 146 P: OK: 0 QRS: 57 QRSD: 96 T: 233 QT: 275 QTc: 430 Interpretive Statements ATRIAL FIBRILLATION WITH RAPID VENTRICULAR RESPONSE ST DEVIATION AND MODERATE T-WAVE ABNORMALITY, CONSIDER LATERAL ISCHEMIA [-0.1+ mV T-WAVE IN I/aVL/V5/V6] ST DEVIATION AND MODERATE T-WAVE ABNORMALITY, CONSIDER INFERIOR ISCHEMIA [-0.1+ mV T-WAVE IN II/aVF] STOCK JUDGING COACH Margaret Silver LEGUILLON DEBEADER ECG ORDERABLES Final Result Performing Organization Address City/[facility] Co de Phone Number [facility] * POCT glucose (06/08/2023 4:29 PM LIVESTOCK JUDGING COACH) GLUCOSE POC 102 70 - 109 06/08/2023 4:53 PM LIVESTOCK JUDGING COACH [facility] 06/08/2023 4:29 PM LIVESTOCK JUDGING COACH Ahmet Levi MD POCT ORDERABLES - DEVICE Fi nal Result Performing Organization Address [facility] Co de Phone Number [facility] [address] [place] [address], [phone] * (ABNORMAL) POCT glucose (06/08/2023 11:10 AM LIVESTOCK JUDGING COACH) GLUCOSE POC 59(L) 70 - 109 06/08/2023 11:52 AM LIVESTOCK JUDGING COACH [facility] 06/08/2023 11:1 0 AM LIVESTOCK JUDGING COACH Ahmet Levi MD POCT ORDERABLES - DEVICE Fi nal Result Performing Organization Address [facility]/ZIP Co de Phone Number [facility] [address] [place] [address], [phone] * MAGNESIUM (06/08/2023 6:20 AM LIVESTOCK JUDGING COACH) MAGNESIUM 1.9 1.6 - 2.6 MG/DL 06/08/2023 7:09 AM [facility] Comment:RESULT QUESTIONABLE DUE TO HEMOLYSIS, CONSIDER RECOLLECTION. 06/08/2023 6:20 AM LIVESTOCK JUDGING COACH Margaret Silver [facility]BE[facility] LABOR[facility] Final Result Performing Organization Address [facility] Co de Phone Number [facility] [address] [place] [address], [phone] * (ABNORMAL) BASIC METABOLIC PANEL (06/08/2023 6:20 AM LIVESTOCK JUDGING COACH) SODIUM S/P/B 137 136 - 145 MMOL/L 06/08/2023 7:09 AM [facility] POTASSIUM S/P/B 3.7 3.5 - 5.1 MMOL/L 06/08/2023 7:09 AM [facility] Comment:SLIGHT HEMOLYSIS, RE SULT MAY BE AFFECTED. CHLORIDE S/P/B 101 98 - 107 MMOL/L 06/08/2023 7:09 AM [facility] CO2 29.6 21.0 - 32.0 MMOL/L 06/08/2023 7:09 AM [facility] GLUCOSE 91 74 - 106 MG/DL 06/08/2023 7:09 AM [facility] BUN 24(H) 7 - 18 MG/DL 06/08/2023 7:09 AM [facility] CREATININE S/P/B 0.77 0.55 - 1.02 MG/DL 06/08/2023 7:09 AM [facility] CALCIUM S/P/B 8.5 8.5 - 10.1 MG/DL 06/08/2023 7:09 AM [facility] ANION GAP 6.4 5.0 - 15.0 MMOL/L 06/08/2023 7:09 AM [facility] OSMOLALITY (CALC) 288 MOSM/KG 024 7:09 AM [facility] Comment:REFERENCE RANGE NOT ESTABLISHED GFR ESTIMATE 79(L) >90 ML/MIN/1. 73 M2 06/08/2023 7:09 AM [facility] GFR NOTES GFR REFERENCE S: 06/08/2023 7:09 AM [facility] Comment: THE ESTIMATED GFR IS CALCULATED [...] FAILURE: <15 ml/min/1.73 m2 06/08/2023 6:20 AM LIVESTOCK JUDGING COACH Margaret Silver [facility] DEBE[facility] Final Result [facility] [address] [place] [address], [phone] * (ABNORMAL) CBC W/DIFF AUTOMATED (06/08/2023 6:20 AM LIVESTOCK JUDGING COACH) WBC 8.90 4.00 - 10.80 x10'3/uL 06/08/2023 6:53 AM LIVESTOCK JUDGING COACH [facility] RBC 3.44(L) 4.10 - 5.40 x10'6/uL 06/08/2023 6:53 AM [facility] HGB 10.9(L) 12.0 - 16.0 G/DL 06/08/2023 6:53 AM [facility] HCT 33.9(L) 36.0 - 47.0 % 06/08/2023 6:53 AM [facility] MCV 98.5 78.0 - 100.0 FL 06/08/2023 6:53 AM [facility] MCH 31.7(H) 27.0 - 31.0 PG 06/08/2023 6:53 AM [facility] MCHC 32.2(L) 33.0 - 36.0 G/DL 06/08/2023 6:53 AM [facility] RDW 14.1 11.5 - 14.5 % 06/08/2023 6:53 AM [facility] PLT 132(L) 150 - 350 x10'3/uL 06/08/2023 6:53 AM [facility] MPV 11.0(H) 7.4 - 10.4 FL 06/08/2023 6:53 AM [facility] ABS. NEUTROPHILS 7.28 1.60 - 8.30 x10'3/uL 06/08/2023 6:53 AM [facility] ABS. LYMPHOCYTES 0.72(L) 0.80 - 4.70 x10'3/uL 06/08/2023 6:53 AM [facility] ABS. MONOCYTES 0.81 0.00 - 1.50 x10'3/uL 06/08/2023 6:53 AM [facility] ABS. EOSINOPHILS 0.01 0.00 - 0.40 x10'3/uL 06/08/2023 6:53 AM [facility] ABS. BASOPHILS 0.04 0.00 - 0.20 x10'3/uL 06/08/2023 6:53 AM [facility] ABS. IMMATURE GRANULOCYTES 0.04(H) 0.00 - 0.03 x10'3/uL 06/08/2023 6:53 AM LIVESTOCK JUDGING COACH [facility] ABS. NUCLEATED RBC'S 0.00 0.0 x10'3/uL 06/08/2023 6:53 AM LIVESTOCK JUDGING COACH [facility] 06/08/2023 6:20 AM LIVESTOCK JUDGING COACH Margaret Silver LEGUILL[facility] DEBE[facility]OR[facility] Final Result Performing Organization Address [facility] Co de Phone Number [facility] [address] [place] [address], [phone] * PROTIME/INR, VENOUS (06/08/2023 6:20 AM LIVESTOCK JUDGING COACH) PROTIME 12.1 9.4 - 12.5 SEC 06/08/2023 6:59 AM LIVESTOCK JUDGING COACH [facility] INR 1.1 0.8 - 1.1 06/08/2023 6:59 AM LIVESTOCK JUDGING COACH [facility] 06/08/2023 6:20 AM LIVESTOCK JUDGING COACH Ahmet Levi MD LABORATORY Final Resul t Performing Organization Address [facility] Co de Phone Number [facility] [address] [place] [address], [phone] * POCT glucose (06/08/2023 6:14 AM LIVESTOCK JUDGING COACH) GLUCOSE POC 93 70 - 109 06/08/2023 6:34 AM LIVESTOCK JUDGING COACH [facility] 06/08/2023 6:14 AM LIVESTOCK JUDGING COACH us Ahmet Levi MD POCT ORDERABLES - DEVICE Fi nal Result Performing Organization Address [facility] Co de Phone Number [facility] [address] [place] [address], [phone] * XR CHEST PORTABLE (06/08/2023 4:38 AM LIVESTOCK JUDGING COACH) Anatomical Region Laterality Modality Chest Radiographic Fabiola ging 06/08/2023 4:58 AM LIVESTOCK JUDGING COACH Impressions 06/08/2023 4:59 AM LIVESTOCK JUDGING COACH IMPRESSION: Single view chest 1. ??Chest tube removal and stable sheath without significant pneumothorax 2. ??Stable cardiac silhouette and mediastinum 3. ??Slight increased left basilar airspace opacities or atelectasis Referred By: ?? Interpreted By: Mauricio Miner MD, 06/08/2023 4:58 AM Narrative 06/08/2023 4:59 AM LIVESTOCK JUDGING COACH Indication: Postop CABG COMPARISON: 06/07/2023 Procedure Note Ti Miner MD - 06/08/2023 Indication: Postop CABG COMPARISON: 06/07/2023 IMPRESSION: Single view chest 1. Chest tube removal and stable sheath without significantpneumothorax 2. Stable cardiac silhouette and mediastinum 3. Slight increased left basilar airspace opacities or atelectasis Referred By: Interpreted By: Mauricio Miner MD, 06/08/2023 4:58 AM Margaret Silver [facility]LL[facility] DEBE[facility] Final Result * (ABNORMAL) POCT glucose (06/07/2023 11:12 PM LIVESTOCK JUDGING COACH) GLUCOSE POC 113(H) 70 - 109 06/07/2023 11:14 PM LIVESTOCK JUDGING COACH [facility] Comment:RN Notified 06/07/2023 11:1 2 PM LIVESTOCK JUDGING COACH Ahmet Levi MD POCT ORDERABLES - DEVICE Fi nal Result [facility] [address] [place] [address], [phone] * (ABNORMAL) POCT glucose (06/07/2023 4:03 PM LIVESTOCK JUDGING COACH) GLUCOSE POC 162(H) 70 - 109 06/07/2023 4:58 PM LIVESTOCK JUDGING COACH [facility] 06/07/2023 4:03 PM LIVESTOCK JUDGING COACH us Ahmet Levi MD POCT ORDERABLES - DEVICE Fi nal Result Performing Organization Address City/[facility] Co de Phone Number [facility] [address] [place] [address], [place] [phone] * (ABNORMAL) POCT glucose (06/07/2023 10:59 AM LIVESTOCK JUDGING COACH) GLUCOSE POC 144(H) 70 - 109 06/07/2023 11:06 AM LIVESTOCK JUDGING COACH [facility] 06/07/2023 10:5 9 AM LIVESTOCK JUDGING COACH us Ahmet Levi MD POCT ORDERABLES - DEVICE Fi nal Result Performing Organization Address [facility] Co de Phone Number [facility] [address] [place] [address], [place] [phone] * POCT glucose (06/07/2023 6:21 AM LIVESTOCK JUDGING COACH) GLUCOSE POC 99 70 - 109 06/07/2023 6:31 AM LIVESTOCK JUDGING COACH [facility] 06/07/2023 6:21 AM LIVESTOCK JUDGING COACH us Ahmet Levi MD POCT ORDERABLES - DEVICE Fi nal Result Performing Organization Address [facility] Co de Phone Number [facility] [address] [place] [address], [place] [phone] * XR CHEST PORTABLE (06/07/2023 5:17 AM LIVESTOCK JUDGING COACH) Anatomical Region Laterality Modality Chest Radiographic Fabiola ging 06/07/2023 7:08 AM LIVESTOCK JUDGING COACH Impressions 06/07/2023 7:08 AM LIVESTOCK JUDGING COACH IMPRESSION: Stable postoperative chest Ordered By: AHMET LEVI Interpreted By: Javier Mayfield MD, 06/07/2023 7:08 AM Narrative 06/07/2023 7:08 AM LIVESTOCK JUDGING COACH SINGLE VIEW OF THE CHEST Clinical history: [...] Resul t * MAGNESIUM (06/07/2023 3:10 AM LIVESTOCK JUDGING COACH) MAGNESIUM 2.1 1.6 - 2.6 MG/DL 06/07/2023 3:57 AM LIVESTOCK JUDGING COACH [facility] 06/07/2023 3:10 AM LIVESTOCK JUDGING COACH Margaret Silver LEGUILL[facility] DEBEAD[facility] LABORAT[facility] Final Result [facility] [address] [place] [address], [phone] * (ABNORMAL) BASIC METABOLIC PANEL (06/07/2023 3:10 AM LIVESTOCK JUDGING COACH) [facility] Signature SODIUM S/P/B 140 136 - 145 MMOL/L 06/07/2023 3:57 AM [facility] POTASSIUM S/P/B 4.1 3.5 - 5.1 MMOL/L 06/07/2023 3:57 AM [facility] CHLORIDE S/P/B 108(H) 98 - 107 MMOL/L 06/07/2023 3:57 AM [facility] CO2 27.4 21.0 - 32.0 MMOL/L 06/07/2023 3:57 AM [facility] GLUCOSE 116(H) 74 - 106 MG/DL 06/07/2023 3:57 AM [facility] BUN 21(H) 7 - 18 MG/DL 06/07/2023 3:57 AM [facility] CREATININE S/P/B 0.84 0.55 - 1.02 MG/DL 06/07/2023 3:57 AM [facility] CALCIUM S/P/B 8.5 8.5 - 10.1 MG/DL 06/07/2023 3:57 AM [facility] ANION GAP 4.6(L) 5.0 - 15.0 MMOL/L 06/07/2023 3:57 AM [facility] OSMOLALITY (CALC) 294 MOSM/KG 024 3:57 AM [facility] Comment:REFERENCE RANGE NOT ESTABLISHED GFR ESTIMATE 72(L) >90 ML/MIN/1. 73 M2 06/07/2023 3:57 AM [facility] GFR NOTES GFR REFERENCE S: 06/07/2023 3:57 AM [facility] Comment: THE ESTIMATED GFR IS CALCULATED [...] FAILURE: <15 ml/min/1.73 m2 06/07/2023 3:10 AM LIVESTOCK JUDGING COACH Margaret Silver [facility] DEBE[facility] Final Result [facility] [address] [place] [address], [place] [phone] * (ABNORMAL) CBC W/DIFF AUTOMATED (06/07/2023 3:10 AM LIVESTOCK JUDGING COACH) WBC 10.75 4.00 - 10.80 x10'3/uL 06/07/2023 3:36 AM LIVESTOCK JUDGING COACH [facility] RBC 3.77(L) 4.10 - 5.40 x10'6/uL 06/07/2023 3:36 AM LIVESTOCK JUDGING COACH [facility] HGB 12.0 12.0 - 16.0 G/DL 06/07/2023 3:36 AM LIVESTOCK JUDGING COACH [facility] HCT 36.5 36.0 - 47.0 % 06/07/2023 3:36 AM LIVESTOCK JUDGING COACH [facility] MCV 96.8 78.0 - 100.0 FL 06/07/2023 3:36 AM LIVESTOCK JUDGING COACH [facility] MCH 31.8(H) 27.0 - 31.0 PG 06/07/2023 3:36 AM LIVESTOCK JUDGING COACH [facility] MCHC 32.9(L) 33.0 - 36.0 G/DL 06/07/2023 3:36 AM [facility] RDW 15.0(H) 11.5 - 14.5 % 06/07/2023 3:36 AM [facility] PLT 122(L) 150 - 350 x10'3/uL 06/07/2023 3:36 AM [facility] MPV 10.1 7.4 - 10.4 FL 06/07/2023 3:36 AM [facility] ABS. NEUTROPHILS 8.72(H) 1.60 - 8.30 x10'3/uL 06/07/2023 3:36 AM LIVESTOCK JUDGING COACH [facility] ABS. LYMPHOCYTES 0.86 0.80 - 4.70 x10'3/uL 06/07/2023 3:36 AM [facility] ABS. MONOCYTES 1.11 0.00 - 1.50 x10'3/uL 06/07/2023 3:36 AM [facility] ABS. EOSINOPHILS 0.00 0.00 - 0.40 x10'3/uL 06/07/2023 3:36 AM LIVESTOCK JUDGING COACH [facility] ABS. BASOPHILS 0.02 0.00 - 0.20 x10'3/uL 06/07/2023 3:36 AM [facility] ABS. IMMATURE GRANULOCYTES 0.04(H) 0.00 - 0.03 x10'3/uL 06/07/2023 3:36 AM [facility] ABS. NUCLEATED RBC'S 0.00 0.0 x10'3/uL 06/07/2023 3:36 AM [facility] 06/07/2023 3:10 AM LIVESTOCK JUDGING COACH us Margaret Silver LEGUILLON DEBE[facility] LABORATORY Final Result [facility] [address] [place] [address], [phone] * PROTIME/INR, VENOUS (06/07/2023 3:10 AM LIVESTOCK JUDGING COACH) PROTIME 12.5 9.4 - 12.5 SEC 06/07/2023 3:57 AM LIVESTOCK JUDGING COACH [facility] INR 1.1 0.8 - 1.1 06/07/2023 3:57 AM LIVESTOCK JUDGING COACH [facility] 06/07/2023 3:10 AM LIVESTOCK JUDGING COACH us Ahmet Levi MD LABORATORY Final Resul t Performing Organization Address City/[facility] Co de Phone Number [facility] [address] [place] [address], [phone] * (ABNORMAL) POCT glucose (06/06/2023 8:09 PM LIVESTOCK JUDGING COACH) GLUCOSE POC 155(H) 70 - 109 06/06/2023 8:18 PM LIVESTOCK JUDGING COACH [facility] 06/06/2023 8:09 PM LIVESTOCK JUDGING COACH us Ahmet Levi MD POCT ORDERABLES - DEVICE Fi nal Result Performing Organization Address [facility] de Phone Number [facility] [address] [place] [address], [phone] * (ABNORMAL) POCT glucose (06/06/2023 4:36 PM LIVESTOCK JUDGING COACH) GLUCOSE POC 168(H) 70 - 109 06/06/2023 5:03 PM LIVESTOCK JUDGING COACH [facility] 06/06/2023 4:36 PM LIVESTOCK JUDGING COACH us Ahmet Levi MD POCT ORDERABLES - DEVICE Fi nal Result Performing Organization Address [facility] Co de Phone Number [facility] [address] [place] [address], [place] [phone] * (ABNORMAL) POCT glucose (06/06/2023 10:06 AM LIVESTOCK JUDGING COACH) GLUCOSE POC 111(H) 70 - 109 06/06/2023 10:09 AM LIVESTOCK JUDGING COACH [facility] 06/06/2023 10:0 6 AM LIVESTOCK JUDGING COACH us Ahmet Levi MD POCT ORDERABLES - DEVICE Fi nal Result Performing Organization Address [facility] Co de Phone Number [facility] [address] [place] [address], [phone] * (ABNORMAL) POCT glucose (06/06/2023 8:16 AM LIVESTOCK JUDGING COACH) GLUCOSE POC 120(H) 70 - 109 06/06/2023 8:31 AM LIVESTOCK JUDGING COACH [facility] 06/06/2023 8:16 AM LIVESTOCK JUDGING COACH us Ahmet Levi MD POCT ORDERABLES - DEVICE Fi nal Result Performing Organization Address [facility] Co de Phone Number [facility] [address] [place] [address], [phone] * (ABNORMAL) POCT glucose (06/06/2023 6:54 AM LIVESTOCK JUDGING COACH) GLUCOSE POC 121(H) 70 - 109 06/06/2023 8:31 AM LIVESTOCK JUDGING COACH [facility] 06/06/2023 6:54 AM LIVESTOCK JUDGING COACH us Ahmet Levi MD POCT ORDERABLES - DEVICE Fi nal Result Performing Organization Address [facility] Co de Phone Number [facility] [address] [place] [address], [phone] * ECG 12 lead (06/06/2023 5:28 AM LIVESTOCK JUDGING COACH) 06/06/2023 5:28 AM LIVESTOCK JUDGING COACH Narrative [facility] 06/06/2023 1:23 PM LIVESTOCK JUDGING COACH ? [facility] ?[address], [place] ??[address] ? Test Date: ?2023-06-06 Pat Name: ? KENDY KINDER ? Department: ?? 1 ? Room: ? [id number] Gender: ? Female ? Patient Educator: ?? Sc : ?1945 ? Requested By: AHMET LEVI Order Number: [id number] ? Reading MD: ?? Belinda Bocanegra ? Measurements Intervals ?[facility] ? Rate: ? 80 ? P: ?58 OK: ? 116 ?QRS: ?23 QRSD: ? 91 ? T: ?59 QT: ? 404 ? QTc: ?468 ? Interpretive Statements SINUS RHYTHM WITH SHORT OK INTERVAL NONSPECIFIC ST & T-WAVE ABNORMALITY STOCK JUDGING COACH Procedure Note Belinda Bocanegra MD - 06/06/2023 [place] [address] [place] [address] Test Date: 2023-06-06 Pat Name: KENDY SALCIDO Department: 1 Room: [place] [address] Gender: Female Patient Educator: Sc : 1945 Requested By: AHMET LEVI Order Number: [id number] Reading MD: Belinda Bocanegra Measurements Intervals [facility] Rate: 80 P: 58 OK: 116 QRS: 23 QRSD: 91 T: 59 QT: 404 QTc: 468 Interpretive Statements SINUS RHYTHM WITH SHORT OK INTERVAL NONSPECIFIC ST & T-WAVE ABNORMALITY STOCK JUDGING COACH us Ahmet Levi MD ECG ORDERABLES Final Resul t [facility] * (ABNORMAL) POCT glucose (06/06/2023 5:26 AM LIVESTOCK JUDGING COACH) GLUCOSE POC 113(H) 70 - 109 06/06/2023 8:31 AM LIVESTOCK JUDGING COACH [facility] 06/06/2023 5:26 AM LIVESTOCK JUDGING COACH Ahmet Levi MD POCT ORDERABLES - DEVICE Fi nal Result [facility] [address] [place] [address], [id number] * XR CHEST PORTABLE (06/06/2023 5:11 AM LIVESTOCK JUDGING COACH) Anatomical Region Laterality Modality Chest Radiographic Fabiola ging 06/06/2023 5:34 AM LIVESTOCK JUDGING COACH Impressions 06/06/2023 5:37 AM LIVESTOCK JUDGING COACH IMPRESSION: 1. ??Removal of ET tube with the other tubes and lines remaining stable. 2. ??Minimal atelectasis in the lung bases with no other acute pulmonary disease. 3. ??Stable postoperative changes of CABG and stable vascular clip in the region of left atrial appendage. Referred By: ?? Interpreted By: Gita Ott MD, 06/06/2023 5:34 AM Narrative 06/06/2023 5:37 AM LIVESTOCK JUDGING COACH EXAMINATION: ??XR Portable CXR, 1 View INDICATION: [...] * (ABNORMAL) POCT glucose (06/06/2023 4:20 AM LIVESTOCK JUDGING COACH) GLUCOSE POC 130(H) 70 - 109 06/06/2023 8:31 AM LIVESTOCK JUDGING COACH [facility] 06/06/2023 4:20 AM LIVESTOCK JUDGING COACH us Ahmet Levi MD POCT ORDERABLES - DEVICE Fi nal Result [facility] [address] [place] [address], [id number] * MAGNESIUM (06/06/2023 4:20 AM LIVESTOCK JUDGING COACH) MAGNESIUM 2.0 1.6 - 2.6 MG/DL 06/06/2023 4:58 AM LIVESTOCK JUDGING COACH [facility] 06/06/2023 4:20 AM LIVESTOCK JUDGING COACH us Ahmet Levi MD LABORATORY Final Resul t Performing Organization Address [facility] de Phone Number [facility] [address] [place] [address], [place] [phone] * (ABNORMAL) PROTIME/INR, VENOUS (06/06/2023 4:20 AM LIVESTOCK JUDGING COACH) PROTIME 12.8(H) 9.4 - 12.5 SEC 06/06/2023 4:58 AM LIVESTOCK JUDGING COACH [facility] INR 1.1 0.8 - 1.1 06/06/2023 4:58 AM [facility] 06/06/2023 4:20 AM LIVESTOCK JUDGING COACH us Ahmet Levi MD LABORATORY Final Resul t Performing Organization Address [facility] de Phone Number [facility] [address] [place] [address], [phone] * (ABNORMAL) BASIC METABOLIC PANEL (06/06/2023 4:20 AM LIVESTOCK JUDGING COACH) SODIUM S/P/B 143 136 - 145 MMOL/L 06/06/2023 4:58 AM LIVESTOCK JUDGING COACH [facility] POTASSIUM S/P/B 4.1 3.5 - 5.1 MMOL/L 06/06/2023 4:58 AM [facility] CHLORIDE S/P/B 114(H) 98 - 107 MMOL/L 06/06/2023 4:58 AM [facility] CO2 23.9 21.0 - 32.0 MMOL/L 06/06/2023 4:58 AM [employer]STOCK JUDGING COACH [facility] GLUCOSE 134(H) 74 - 106 MG/DL 06/06/2023 4:58 AM L[employer]STOCK JUDGING COACH [facility] BUN 17 7 - 18 MG/DL 06/06/2023 4:58 AM [facility] CREATININE S/P/B 0.80 0.55 - 1.02 MG/DL 06/06/2023 4:58 AM [facility] CALCIUM S/P/B 8.4(L) 8.5 - 10.1 MG/DL 06/06/2023 4:58 AM [facility] ANION GAP 5.1 5.0 - 15.0 MMOL/L 06/06/2023 4:58 AM [facility] OSMOLALITY (CALC) 300 MOSM/KG 024 4:58 AM [facility] Comment:REFERENCE RANGE NOT ESTABLISHED GFR ESTIMATE 76(L) >90 ML/MIN/1. 73 M2 06/06/2023 4:58 AM [facility] GFR NOTES GFR REFERENCE S: 06/06/2023 4:58 AM [facility] Comment: THE ESTIMATED GFR IS CALCULATED [...] FAILURE: <15 ml/min/1.73 m2 06/06/2023 4:20 AM [employer]STOCK JUDGING COACH us Ahmet Levi MD LABORATORY Final Resul t [facility] [address] [place] [address], [phone] * (ABNORMAL) CBC W/DIFF AUTOMATED (06/06/2023 4:20 AM LIVESTOCK JUDGING COACH) [facility] WBC 10.14 4.00 - 10.80 x10'3/uL 06/06/2023 4:39 AM [facility] RBC 4.02(L) 4.10 - 5.40 x10'6/uL 06/06/2023 4:39 AM [facility] HGB 13.0 12.0 - 16.0 G/DL 06/06/2023 4:39 AM [facility] HCT 38.3 36.0 - 47.0 % 06/06/2023 4:39 AM [facility] MCV 95.3 78.0 - 100.0 FL 06/06/2023 4:39 AM [facility] MCH 32.3(H) 27.0 - 31.0 PG 06/06/2023 4:39 AM [facility] MCHC 33.9 33.0 - 36.0 G/DL 06/06/2023 4:39 AM [facility] RDW 15.1(H) 11.5 - 14.5 % 06/06/2023 4:39 AM [facility] PLT 129(L) 150 - 350 x10'3/uL 06/06/2023 4:39 AM [facility] MPV 10.5(H) 7.4 - 10.4 FL 06/06/2023 4:39 AM [facility] ABS. NEUTROPHILS 8.92(H) 1.60 - 8.30 x10'3/uL 06/06/2023 4:39 AM [facility] ABS. LYMPHOCYTES 0.41(L) 0.80 - 4.70 x10'3/uL 06/06/2023 4:39 AM [facility] ABS. MONOCYTES 0.76 0.00 - 1.50 x10'3/uL 06/06/2023 4:39 AM [employer]STOCK JUDGING COACH [facility] ABS. EOSINOPHILS 0.00 0.00 - 0.40 x10'3/uL 06/06/2023 4:39 AM [employer]STOCK JUDGING COACH [facility] ABS. BASOPHILS 0.01 0.00 - 0.20 x10'3/uL 06/06/2023 4:39 AM LIVESTOCK JUDGING COACH [facility] ABS. IMMATURE GRANULOCYTES 0.04(H) 0.00 - 0.03 x10'3/uL 06/06/2023 4:39 AM L[employer]STOCK JUDGING COACH [facility] ABS. NUCLEATED RBC'S 0.00 0.0 x10'3/uL 06/06/2023 4:39 AM [employer]STOCK JUDGING COACH [facility] 06/06/2023 4:20 AM LIVESTOCK JUDGING COACH us Ahmet Levi MD LABORATORY Final Resul t Performing Organization Address City/[facility]/ZIP Co de Phone Number [facility] [address] [place] [address], [phone] * (ABNORMAL) POCT glucose (06/06/2023 3:06 AM LIVESTOCK JUDGING COACH) GLUCOSE POC 117(H) 70 - 109 06/06/2023 8:31 AM L[employer]STOCK JUDGING COACH [facility] 06/06/2023 3:06 AM LIVESTOCK JUDGING COACH us Ahmet Levi MD POCT ORDERABLES - DEVICE Fi nal Result Performing Organization Address [facility] Co de Phone Number [facility] [address] [place] [address], [phone] * (ABNORMAL) POCT glucose (06/06/2023 2:02 AM LIVESTOCK JUDGING COACH) GLUCOSE POC 126(H) 70 - 109 06/06/2023 2:04 AM [employer]STOCK JUDGING COACH [facility] 06/06/2023 2:02 AM LIVESTOCK JUDGING COACH us Ahmet Levi MD POCT ORDERABLES - DEVICE Fi nal Result Performing Organization Address [facility] de Phone Number [facility] [address] [place] [address], [place] [phone] * (ABNORMAL) POCT glucose (06/06/2023 1:20 AM LIVESTOCK JUDGING COACH) GLUCOSE POC 132(H) 70 - 109 06/06/2023 2:04 AM LIVESTOCK JUDGING COACH [facility] 06/06/2023 1:20 AM LIVESTOCK JUDGING COACH us Ahmet Levi MD POCT ORDERABLES - DEVICE Fi nal Result Performing Organization Address [facility] Phone Number [facility] [address] [place] [address], [phone] * (ABNORMAL) POCT glucose (06/06/2023 12:04 AM LIVESTOCK JUDGING COACH) GLUCOSE POC 129(H) 70 - 109 06/06/2023 2:04 AM L[employer]STOCK JUDGING COACH [facility] 06/06/2023 12:0 4 AM LIVESTOCK JUDGING COACH us Ahmet Levi MD POCT ORDERABLES - DEVICE Fi nal Result Performing Organization Address [facility] de Phone Number [facility] [address] [place] [address], [place] [phone] * (ABNORMAL) POCT glucose (06/05/2023 11:07 PM LIVESTOCK JUDGING COACH) GLUCOSE POC 123(H) 70 - 109 06/06/2023 2:04 AM LIVESTOCK JUDGING COACH [facility] 06/05/2023 11:0 7 PM LIVESTOCK JUDGING COACH us Ahmet Levi MD POCT ORDERABLES - DEVICE Fi nal Result Performing Organization Address [facility]/ZIP Co de Phone Number [facility] [address] [place] [address], [phone] * (ABNORMAL) POCT glucose (06/05/2023 10:14 PM LIVESTOCK JUDGING COACH) GLUCOSE POC 119(H) 70 - 109 06/06/2023 2:04 AM LIVESTOCK JUDGING COACH [facility] 06/05/2023 10:1 4 PM LIVESTOCK JUDGING COACH us Ahmet Levi MD POCT ORDERABLES - DEVICE Fi nal Result Performing Organization Address [facility] Co de Phone Number [facility] [address] [place] [address], [phone] * (ABNORMAL) POCT ACUTE ARTERIAL PANEL (06/05/2023 9:11 PM LIVESTOCK JUDGING COACH) SODIUM WHOLE BLOOD 143 138 - 146 mmol/L 06/05/2023 9:14 PM [facility] POTASSIUM WHOLE BLOOD 4.3 3.5 - 4.9 mmol/L 06/05/2023 9:14 PM [facility] CA IONIZED WH BLOOD 1.27 1.12 - 1.32 mmol/L 06/05/2023 9:14 PM [facility] POC PH ARTERIAL 7.317(L) 7.35 - 7.45 06/05/2023 9:14 PM [facility] POC PCO2 ARTERIAL 44.6 35.0 - 45.0 MMHG 06/05/2023 9:14 PM [facility] POC PO2 ARTERIAL 168(H) 80 - 105 MMHG 06/05/2023 9:14 PM [facility] POC HCO3 ARTERIAL 22.8 22 - 26 MMOL/L 06/05/2023 9:14 PM [facility] POC TCO2 ARTERIAL 24 23 - 27 MMOL/L 06/05/2023 9:14 PM LIVESTOCK JUDGING COACH [facility] POC BASE DEFICIT ARTERIAL 3(H) 0 - 2 MMOL/L 06/05/2023 9:14 PM L[employer]STOCK JUDGING COACH [facility] POC HEMATOCRIT 38 38 - 51 % 06/05/2023 9:14 PM [employer]STOCK JUDGING COACH [facility] TIME TEST WAS PERFORMED: 211006/05/2023 9:14 PM L[employer]STOCK JUDGING COACH [facility] 06/05/2023 9:11 PM LIVESTOCK JUDGING COACH us Ahmet Levi MD POCT ORDERABLES - DEVICE Fi nal Result Performing Organization Address [facility] Co de Phone Number [facility] [address] [place] [address], [phone] * (ABNORMAL) POCT glucose (06/05/2023 9:09 PM LIVESTOCK JUDGING COACH) GLUCOSE POC 135(H) 70 - 109 06/05/2023 9:14 PM [employer]STOCK JUDGING COACH [facility] 06/05/2023 9:09 PM LIVESTOCK JUDGING COACH us Ahmet Levi MD POCT ORDERABLES - DEVICE Fi nal Result Performing Organization Address [facility] de Phone Number [facility] [address] [place] [address], [phone] * (ABNORMAL) POCT glucose (06/05/2023 8:02 PM LIVESTOCK JUDGING COACH) GLUCOSE POC 137(H) 70 - 109 06/05/2023 9:14 PM L[employer]STOCK JUDGING COACH [facility] 06/05/2023 8:02 PM LIVESTOCK JUDGING COACH us Ahmet Levi MD POCT ORDERABLES - DEVICE Fi nal Result Performing Organization Address [facility] Co de Phone Number [facility] [address] [place] [phone], [phone] * (ABNORMAL) POCT EG7 BLD GAS ARTERIAL TEMP TSERING (06/05/2023 7:03 PM LIVESTOCK JUDGING COACH) SODIUM WHOLE BLOOD 142 138 - 146 mmol/L 06/05/2023 9:14 PM [facility] POTASSIUM WHOLE BLOOD 4.4 3.5 - 4.9 mmol/L 06/05/2023 9:14 PM [facility] CA IONIZED WH BLOOD 1.28 1.12 - 1.32 mmol/L 06/05/2023 9:14 PM [facility] POC PH ARTERIAL 7.282(L) 7.35 - 7.45 06/05/2023 9:14 PM [facility] POC PCO2 ARTERIAL 48.3(H) 35.0 - 45.0 MMHG 06/05/2023 9:14 PM [facility] POC PO2 ARTERIAL 156(H) 80 - 105 MMHG 06/05/2023 9:14 PM [facility] POC HCO3 ARTERIAL 22.8 22 - 26 MMOL/L 06/05/2023 9:14 PM [facility] POC TCO2 ARTERIAL 24 23 - 27 MMOL/L 06/05/2023 9:14 PM [facility] POC BASE DEFICIT ARTERIAL 4(H) 0 - 2 MMOL/L 06/05/2023 9:14 PM [facility] TEMPERATURE 36.5 06/05/2023 9:14 PM [facility] POC PH TEMP CORRECTED ARTERIAL 7.289(L) 7.35 - 7.45 06/05/2023 9:14 PM [facility] POC PCO2 TEMP TSERING ARTERIAL 47.3(H) 35.0 - 45.0 MMHG 06/05/2023 9:14 PM [facility] POC PO2 TEMP TSERING ARTERIAL 153(H) 80 - 105 MMHG 06/05/2023 9:14 PM [facility] POC HEMATOCRIT 39 38 - 51 % 06/05/2023 9:14 PM [employer]STOCK JUDGING COACH [facility] TIME TEST WAS PERFORMED: 190206/05/2023 9:14 PM [employer]STOCK JUDGING COACH [facility] 06/05/2023 7:03 PM LIVESTOCK JUDGING COACH us Ahmet Levi MD POINT OF CARE TEST ORDERABL ES Final Result Performing Organization Address [facility] Co de Phone Number [facility] [address] [place] [address], [phone] * (ABNORMAL) POCT glucose (06/05/2023 7:01 PM LIVESTOCK JUDGING COACH) GLUCOSE POC 126(H) 70 - 109 06/05/2023 7:03 PM [employer]STOCK JUDGING COACH [facility] 06/05/2023 7:01 PM LIVESTOCK JUDGING COACH us Ahmet Levi MD POCT ORDERABLES - DEVICE Fi nal Result Performing Organization Address [facility] de Phone Number [facility] [address] [place] [address], [place] [phone] * (ABNORMAL) POCT glucose (06/05/2023 6:15 PM LIVESTOCK JUDGING COACH) GLUCOSE POC 126(H) 70 - 109 06/05/2023 7:03 PM L[employer]STOCK JUDGING COACH [facility] 06/05/2023 6:15 PM LIVESTOCK JUDGING COACH us Ahmet Levi MD POCT ORDERABLES - DEVICE Fi nal Result Performing Organization Address [facility] Co de Phone Number [facility] [address] [place] [address], [place] [phone] * (ABNORMAL) POCT ACUTE ARTERIAL PANEL (06/05/2023 5:33 PM LIVESTOCK JUDGING COACH) SODIUM WHOLE BLOOD 141 138 - 146 mmol/L 06/05/2023 5:35 PM LIVESTOCK JUDGING COACH [facility] POTASSIUM WHOLE BLOOD 3.7 3.5 - 4.9 mmol/L 06/05/2023 5:35 PM LIVESTOCK JUDGING COACH [facility] CA IONIZED WH BLOOD 1.29 1.12 - 1.32 mmol/L 06/05/2023 5:35 PM LIVESTOCK JUDGING COACH [facility] POC PH ARTERIAL 7.316(L) 7.35 - 7.45 06/05/2023 5:35 PM LIVESTOCK JUDGING COACH [facility] POC PCO2 ARTERIAL 45.1(H) 35.0 - 45.0 MMHG 06/05/2023 5:35 PM LIVESTOCK JUDGING COACH [facility] POC PO2 ARTERIAL 92 80 - 105 MMHG 06/05/2023 5:35 PM [facility] POC HCO3 ARTERIAL 23.0 22 - 26 MMOL/L 06/05/2023 5:35 PM L[employer]STOCK JUDGING COACH [facility] POC TCO2 ARTERIAL 24 23 - 27 MMOL/L 06/05/2023 5:35 PM [facility] POC BASE DEFICIT ARTERIAL 3(H) 0 - 2 MMOL/L 06/05/2023 5:35 PM [facility] POC HEMATOCRIT 40 38 - 51 % 06/05/2023 5:35 PM [facility] TIME TEST WAS PERFORMED: 1733 06/05/2023 5:35 PM [facility] 06/05/2023 5:33 PM LIVESTOCK JUDGING COACH Ahmet Levi MD POCT ORDERABLES - DEVICE Fi nal Result [facility] [address] [place] [address], [phone] * (ABNORMAL) POCT ACUTE ARTERIAL PANEL (06/05/2023 5:08 PM LIVESTOCK JUDGING COACH) Pathologist [facility] SODIUM WHOLE BLOOD 141 138 - 146 mmol/L 06/05/2023 5:35 PM [facility] POTASSIUM WHOLE BLOOD 3.5 3.5 - 4.9 mmol/L 06/05/2023 5:35 PM [facility] CA IONIZED WH BLOOD 1.28 1.12 - 1.32 mmol/L 06/05/2023 5:35 PM [facility] POC PH ARTERIAL 7.318(L) 7.35 - 7.45 06/05/2023 5:35 PM [facility] POC PCO2 ARTERIAL 45.0 35.0 - 45.0 MMHG 06/05/2023 5:35 PM [facility] POC PO2 ARTERIAL 155(H) 80 - 105 MMHG 06/05/2023 5:35 PM [facility] POC HCO3 ARTERIAL 23.1 22 - 26 MMOL/L 06/05/2023 5:35 PM [facility] POC TCO2 ARTERIAL 24 23 - 27 MMOL/L 06/05/2023 5:35 PM [facility] POC BASE DEFICIT ARTERIAL 3(H) 0 - 2 MMOL/L 06/05/2023 5:35 PM [facility] POC HEMATOCRIT 39 38 - 51 % 06/05/2023 5:35 PM [facility] TIME TEST WAS PERFORMED: 1708 06/05/2023 5:35 PM [facility] 06/05/2023 5:08 PM L[employer]STOCK JUDGING COACH Ahmet Levi MD POCT ORDERABLES - DEVICE Fi nal Result [facility] [address] [place] [phone], [phone] * (ABNORMAL) POCT glucose (06/05/2023 5:05 PM LIVESTOCK JUDGING COACH) GLUCOSE POC 144(H) 70 - 109 06/05/2023 7:03 PM [facility] 06/05/2023 5:05 PM L[employer]STOCK JUDGING COACH us Ahmet Levi MD POCT ORDERABLES - DEVICE Fi nal Result [facility] [address] [place] [address], [phone] * (ABNORMAL) POCT ACUTE ARTERIAL PANEL (06/05/2023 4:19 PM LIVESTOCK JUDGING COACH) SODIUM WHOLE BLOOD 139 138 - 146 mmol/L 06/05/2023 5:35 PM [employer]STOCK JUDGING COACH [facility] POTASSIUM WHOLE BLOOD 3.9 3.5 - 4.9 mmol/L 06/05/2023 5:35 PM L[employer]STOCK JUDGING COACH [facility] CA IONIZED WH BLOOD 1.30 1.12 - 1.32 mmol/L 06/05/2023 5:35 PM L[employer]STOCK JUDGING COACH [facility] POC PH ARTERIAL 7.294(L) 7.35 - 7.45 06/05/2023 5:35 PM L[employer]STOCK JUDGING COACH [facility] POC PCO2 ARTERIAL 46.3(H) 35.0 - 45.0 MMHG 06/05/2023 5:35 PM L[employer]STOCK JUDGING COACH [facility] POC PO2 ARTERIAL 137(H) 80 - 105 MMHG 06/05/2023 5:35 PM L[employer]STOCK JUDGING COACH [facility] POC HCO3 ARTERIAL 22.5 22 - 26 MMOL/L 06/05/2023 5:35 PM L[employer]STOCK JUDGING COACH [facility] POC TCO2 ARTERIAL 24 23 - 27 MMOL/L 06/05/2023 5:35 PM L[employer]STOCK JUDGING COACH [facility] POC BASE DEFICIT ARTERIAL 4(H) 0 - 2 MMOL/L 06/05/2023 5:35 PM L[employer]STOCK JUDGING COACH [facility] POC HEMATOCRIT 44 38 - 51 % 06/05/2023 5:35 PM [facility] TIME TEST WAS PERFORMED: 1619 06/05/2023 5:35 PM [employer]STOCK JUDGING COACH [facility] 06/05/2023 4:19 PM L[employer]STOCK JUDGING COACH us Ahmet Levi MD POCT ORDERABLES - DEVICE Fi nal Result Performing Organization Address [facility] Co de Phone Number [facility] [address] [place] [address], [phone] * (ABNORMAL) POCT glucose (06/05/2023 4:17 PM LIVESTOCK JUDGING COACH) GLUCOSE POC 158(H) 70 - 109 06/05/2023 7:03 PM [employer]STOCK JUDGING COACH [facility] 06/05/2023 4:17 PM L[employer]STOCK JUDGING COACH Ahmet Levi MD POCT ORDERABLES - DEVICE Fi nal Result Performing Organization Address [facility] de Phone Number [facility] [address] [place] [address], [phone] * (ABNORMAL) POCT ACUTE ARTERIAL PANEL (06/05/2023 3:04 PM LIVESTOCK JUDGING COACH) SODIUM WHOLE BLOOD 138 138 - 146 mmol/L 06/05/2023 3:19 PM [facility] POTASSIUM WHOLE BLOOD 4.1 3.5 - 4.9 mmol/L 06/05/2023 3:19 PM [facility] CA IONIZED WH BLOOD 1.31 1.12 - 1.32 mmol/L 06/05/2023 3:19 PM L[employer]STOCK JUDGING COACH [facility] POC PH ARTERIAL 7.288(L) 7.35 - 7.45 06/05/2023 3:19 PM [facility] POC PCO2 ARTERIAL 47.8(H) 35.0 - 45.0 MMHG 06/05/2023 3:19 PM [facility] POC PO2 ARTERIAL 131(H) 80 - 105 MMHG 06/05/2023 3:19 PM [employer]STOCK JUDGING COACH [facility] POC HCO3 ARTERIAL 22.8 22 - 26 MMOL/L 06/05/2023 3:19 PM [employer]STOCK JUDGING COACH [facility] POC TCO2 ARTERIAL 24 23 - 27 MMOL/L 06/05/2023 3:19 PM [employer]STOCK JUDGING COACH [facility] POC BASE DEFICIT ARTERIAL 4(H) 0 - 2 MMOL/L 06/05/2023 3:19 PM [employer]STOCK JUDGING COACH [facility] POC HEMATOCRIT 42 38 - 51 % 06/05/2023 3:19 PM [employer]STOCK JUDGING COACH [facility] TIME TEST WAS PERFORMED: 1504 06/05/2023 3:19 PM [employer]STOCK JUDGING COACH [facility] 06/05/2023 3:04 PM L[employer]STOCK JUDGING COACH Ahmet Levi MD POCT ORDERABLES - DEVICE Fi nal Result Performing Organization Address [facility] de Phone Number [facility] [address] [place] [address], [phone] * (ABNORMAL) POCT glucose (06/05/2023 3:02 PM LIVESTOCK JUDGING COACH) Pathologist [facility] GLUCOSE POC 159(H) 70 - 109 06/05/2023 7:03 PM [employer]STOCK JUDGING COACH [facility] 06/05/2023 3:02 PM LIVESTOCK JUDGING COACH Ahmet Levi MD POCT ORDERABLES - DEVICE Fi nal Result Performing Organization Address [facility] de Phone Number [facility] [address] [place] [address], [phone] * USE TRANSESOPHAGEAL ECHO (06/05/2023 2:47 PM LIVESTOCK JUDGING COACH) Anatomical Region Laterality Modality Cardiac Echocardiogram 06/05/2023 7:37 AM LIVESTOCK JUDGING COACH Narrative 06/05/2023 3:14 PM LIVESTOCK JUDGING COACH ?Transesophageal Echocardiography Report Pat.Name: ??KENDY SALCIDO ? Pat.ID: ?[id number] ? St.Date: ?? 06/05/2023 ? Refer.MD: ??GUERO ? Exam Time: 7:37:00 AM ? Study Type:TRANSESOPHAGEAL ECHO (MARIA ANTONIA) ??Age: ??1945,77Y ? Sex: ? F ? Sonogrphr: Streeter q ?Pat. Stat.:Inpatient ? CPT - 4: ?[id number] ? Reason for Study:Coronary bypass surgery Procedures: [...] Transesophageal Echocardiography Report Pat.Name: KENDY SALCIDO Pat.ID: [id number] .Date: 06/05/2023 Refer.: GUERO Exam Time: 7:37:00 AM Study Type:TRANSESOPHAGEAL ECHO (MARIA ANTONIA) Age: 8 1945,77Y Sex: F Sonogrphr: Ferdinand sumner Veena. Stat.:Inpatient CPT - 4: [id number] Reason for Study:Coronary bypass surgery Procedures: 2D, [...] Signature> 06/05/2023 03:14 PM Kenia Streeter M.D. Ahmet Levi MD ECHO Final Resul t * TRANSFUSE RED BLOOD CELLS (06/05/2023 2:45 PM LIVESTOCK JUDGING COACH) Ahmet Levi MD NURSING TREATMENT ORDERABLE S - BLOOD ADMIN Final Result * TRANSFUSE RED BLOOD CELLS (06/05/2023 2:45 PM LIVESTOCK JUDGING COACH) Ahmet Levi MD NURSING TREATMENT ORDERABLE S - BLOOD ADMIN Final Result * TRANSFUSE RED BLOOD CELLS, 2 Units (06/05/2023 2:45 PM LIVESTOCK JUDGING COACH) Ahmet Levi MD NURSING TREATMENT ORDERABLE S - BLOOD ADMIN Final Result * (ABNORMAL) POCT ACUTE ARTERIAL PANEL (06/05/2023 2:05 PM LIVESTOCK JUDGING COACH) SODIUM WHOLE BLOOD 138 138 - 146 mmol/L 06/05/2023 3:19 PM [employer]STOCK JUDGING COACH [facility] POTASSIUM WHOLE BLOOD 4.1 3.5 - 4.9 mmol/L 06/05/2023 3:19 PM L[employer]STOCK JUDGING COACH [facility] CA IONIZED WH BLOOD 1.36(H) 1.12 - 1.32 mmol/L 06/05/2023 3:19 PM LIVESTOCK JUDGING COACH [facility] POC PH ARTERIAL 7.254(L) 7.35 - 7.45 06/05/2023 3:19 PM [facility] POC PCO2 ARTERIAL 56.6(H) 35.0 - 45.0 MMHG 06/05/2023 3:19 PM L[employer]STOCK JUDGING COACH [facility] POC PO2 ARTERIAL 121(H) 80 - 105 MMHG 06/05/2023 3:19 PM L[employer]STOCK JUDGING COACH [facility] POC HCO3 ARTERIAL 25.1 22 - 26 MMOL/L 06/05/2023 3:19 PM [facility] POC TCO2 ARTERIAL 27 23 - 27 MMOL/L 06/05/2023 3:19 PM [facility] POC BASE DEFICIT ARTERIAL 2 0 - 2 MMOL/L 06/05/2023 3:19 PM [facility] P[facility] HEMATOCRIT 40 38 - 51 % 06/05/2023 3:19 PM [facility] TIME TEST WAS PERFORMED: 1405 06/05/2023 3:19 PM LIVESTOCK JUDGING COACH [facility] 06/05/2023 2:05 PM LIVESTOCK JUDGING COACH us Ahmet Levi MD POCT ORDERABLES - DEVICE Fi nal Result [facility] [address] [place] [address], [id number] * (ABNORMAL) POCT glucose (06/05/2023 2:03 PM LIVESTOCK JUDGING COACH) [facility] GLUCOSE POC 140(H) 70 - 109 06/05/2023 7:03 PM LIVESTOCK JUDGING COACH [facility] 06/05/2023 2:03 PM LIVESTOCK JUDGING COACH us Ahmet Levi MD POCT ORDERABLES - DEVICE Fi nal Result [facility] [address] [place] [address], [id number] * ECG 12 lead (06/05/2023 1:42 PM LIVESTOCK JUDGING COACH) 06/05/2023 1:42 PM LIVESTOCK JUDGING COACH Narrative [facility] - 06/05/2023 5:10 PM LIVESTOCK JUDGING COACH ? [facility] ?[address], [place] ??[address] ? Test Date: ?2023-06-05 Pat Name: ? KENDY SALCIDO ? Department: ?? 1 ? Room: ? [id number] Gender: ? Female ? Patient Educator: ?? Ab : ?1945 ? Requested By: AHMET LEVI Order Number: [id number] ? Gerard NUNN: ?? Belinda Bocanegra ? Measurements Intervals ?[facility] ? Rate: ? 54 ? P: ?63 OK: ? 140 ?QRS: ?78 QRSD: ? 94 ? T: ?68 QT: ? 488 ? QTc: ?463 ? Interpretive Statements [facility] [employer] STOCK JUDGING COACH Procedure Note Belinda Bocanegra MD - 06/05/2023 [place] [address] [place] [address] Test Date: 2023-06-05 Pat Name: KENDY SALCIDO Department: 1 Room: [place] [address] Gender: Female Patient Educator: Ab : 1945 Requested By: AHMET LEVI Order Number: [id number] Gerard MD: Belinda Bocanegra Measurements Intervals [facility] Rate: 54 P: 63 OK: 140 QRS: 78 QRSD: 94 T: 68 QT: 488 QTc: 463 Interpretive Statements [employer] STOCK JUDGING COACH us Ahmet Levi MD ECG ORDERABLES Final Resul t [facility] * XR CHEST PORTABLE (06/05/2023 1:26 PM LIVESTOCK JUDGING COACH) Anatomical Region Laterality Modality Chest Radiographic Fabiola ging 06/05/2023 1:47 PM LIVESTOCK JUDGING COACH Impressions 06/05/2023 2:02 PM LIVESTOCK JUDGING COACH IMPRESSION: 1. ??No acute findings. 2. ??Lines and tubes as described above. Ordered By: AHMET LEVI Interpreted By: Juanito Broderick MD, 06/05/2023 1:47 PM Narrative 06/05/2023 2:02 PM LIVESTOCK JUDGING COACH Examination: X-ray chest, 1 view Exam time: [...] By: Juanito Broderick MD, 06/05/2023 1:47 PM us Ahmet Levi MD GENERAL IMAGING Final Resul t * (ABNORMAL) POCT ACUTE ARTERIAL PANEL (06/05/2023 1:23 PM LIVESTOCK JUDGING COACH) SODIUM WHOLE BLOOD 138 138 - 146 mmol/L 06/05/2023 3:19 PM LIVESTOCK JUDGING COACH [facility] POTASSIUM WHOLE BLOOD 4.2 3.5 - 4.9 mmol/L 06/05/2023 3:19 PM LIVESTOCK JUDGING COACH [facility] CA IONIZED WH BLOOD 1.33(H) 1.12 - 1.32 mmol/L 06/05/2023 3:19 PM LIVESTOCK JUDGING COACH [facility] P[facility] PH ARTERIAL 7.359 7.35 - 7.45 06/05/2023 3:19 PM [facility] PCO2 ARTERIAL 42.4 35.0 - 45.0 MMHG 06/05/2023 3:19 PM [facility] P[facility] PO2 ARTERIAL 206(H) 80 - 105 MMHG 06/05/2023 3:19 PM LIVESTOCK JUDGING COACH [facility] HCO3 ARTERIAL 23.9 22 - 26 MMOL/L 06/05/2023 3:19 PM LIVESTOCK JUDGING COACH [facility] TCO2 ARTERIAL 25 23 - 27 MMOL/L 06/05/2023 3:19 PM [facility] POC BASE DEFICIT ARTERIAL 2 0 - 2 MMOL/L 06/05/2023 3:19 PM [facility] POC HEMATOCRIT 34(L) 38 - 51 % 06/05/2023 3:19 PM [facility] TIME TEST WAS PERFORMED: 1323 06/05/2023 3:19 PM [facility] 06/05/2023 1:23 PM LIVESTOCK JUDGING COACH us Ahmet Levi MD POCT ORDERABLES - DEVICE Fi nal Result [facility] [address] [place] [address], [id number] * MAGNESIUM (06/05/2023 1:21 PM LIVESTOCK JUDGING COACH) [facility] MAGNESIUM 2.5 1.6 - 2.6 MG/DL 06/05/2023 2:05 PM LIVESTOCK JUDGING COACH [facility] Comment:RESULT QUESTIONABLE DUE TO HEMOLYSIS, CONSIDER RECOLLECTION. 06/05/2023 1:21 PM LIVESTOCK JUDGING COACH us Ahmet Levi MD LABORATORY Final Resul t Performing Organization Address [facility] Co de Phone Number [facility] [address] [place] [address], [id number] * (ABNORMAL) POCT glucose (06/05/2023 1:20 PM LIVESTOCK JUDGING COACH) [facility] GLUCOSE POC 120(H) 70 - 109 06/05/2023 7:03 PM LIVESTOCK JUDGING COACH [facility] 06/05/2023 1:20 PM LIVESTOCK JUDGING COACH us Ahmet Levi MD POCT ORDERABLES - DEVICE Fi nal Result Performing Organization Address [facility] de Phone Number [facility] [address] [place] [address], [id number] * (ABNORMAL) POCT ACUTE ARTERIAL PANEL (06/05/2023 12:38 PM LIVESTOCK JUDGING COACH) [facility] SODIUM WHOLE BLOOD 138 138 - 146 mmol/L 06/05/2023 1:35 PM LIVESTOCK JUDGING COACH [facility] POTASSIUM WHOLE BLOOD 4.6 3.5 - 4.9 mmol/L 06/05/2023 1:35 PM LIVESTOCK JUDGING COACH [facility] CA IONIZED WH BLOOD 1.44(H) 1.12 - 1.32 mmol/L 06/05/2023 1:35 PM LIVESTOCK JUDGING COACH [facility] POC PH ARTERIAL 7.326(L) 7.35 - 7.45 06/05/2023 1:35 PM LIVESTOCK JUDGING COACH [facility] POC PCO2 ARTERIAL 48.9(H) 35.0 - 45.0 MMHG 06/05/2023 1:35 PM LIVESTOCK JUDGING COACH [facility] POC PO2 ARTERIAL 437(H) 80 - 105 MMHG 06/05/2023 1:35 PM LIVESTOCK JUDGING COACH [facility] POC HCO3 ARTERIAL 25.5 22 - 26 MMOL/L 06/05/2023 1:35 PM LIVESTOCK JUDGING COACH [facility] POC TCO2 ARTERIAL 27 23 - 27 MMOL/L 06/05/2023 1:35 PM LIVESTOCK JUDGING COACH [facility] POC BASE EXCESS ARTERIAL 0 0 - 3 MMOL/L 06/05/2023 1:35 PM LIVESTOCK JUDGING COACH [facility] POC HEMATOCRIT 26(L) 38 - 51 % 06/05/2023 1:35 PM LIVESTOCK JUDGING COACH [facility] TIME TEST WAS PERFORMED: 1238 06/05/2023 1:35 PM LIVESTOCK JUDGING COACH [facility] 06/05/2023 12:3 8 PM LIVESTOCK JUDGING COACH us Ahmet Levi MD POCT ORDERABLES - DEVICE Fi nal Result Performing Organization Address [facility] Co de Phone Number [facility] [address] [place] [address], [id number] * (ABNORMAL) POCT glucose (06/05/2023 12:36 PM LIVESTOCK JUDGING COACH) [facility] GLUCOSE POC 128(H) 70 - 109 06/05/2023 12:52 PM LIVESTOCK JUDGING COACH [facility] 06/05/2023 12:3 6 PM LIVESTOCK JUDGING COACH us Ahmet Levi MD POCT ORDERABLES - DEVICE Fi nal Result Performing Organization Address [facility] Co de Phone Number [facility] [address] [place] [address], [id number] * (ABNORMAL) POCT ACUTE ARTERIAL PANEL (06/05/2023 11:51 AM LIVESTOCK JUDGING COACH) SODIUM WHOLE BLOOD 134(L) 138 - 146 mmol/L 06/05/2023 1:35 PM LIVESTOCK JUDGING COACH [facility] POTASSIUM WHOLE BLOOD 5.8(H) 3.5 - 4.9 mmol/L 06/05/2023 1:35 PM LIVESTOCK JUDGING COACH [facility] CA IONIZED WH BLOOD 0.99(L) 1.12 - 1.32 mmol/L 06/05/2023 1:35 PM LIVESTOCK JUDGING COACH [facility] POC PH ARTERIAL 7.361 7.35 - 7.45 06/05/2023 1:35 PM LIVESTOCK JUDGING COACH [facility] POC PCO2 ARTERIAL 46.5(H) 35.0 - 45.0 MMHG 06/05/2023 1:35 PM LIVESTOCK JUDGING COACH [facility] POC PO2 ARTERIAL 315(H) 80 - 105 MMHG 06/05/2023 1:35 PM LIVESTOCK JUDGING COACH [facility] POC HCO3 ARTERIAL 26.3(H) 22 - 26 MMOL/L 06/05/2023 1:35 PM [facility] POC TCO2 ARTERIAL 28(H) 23 - 27 MMOL/L 06/05/2023 1:35 PM LIVESTOCK JUDGING COACH [facility] POC BASE EXCESS ARTERIAL 1 0 - 3 MMOL/L 06/05/2023 1:35 PM [facility] POC HEMATOCRIT 21(L) 38 - 51 % 06/05/2023 1:35 PM LIVESTOCK JUDGING COACH [facility] TIME TEST WAS PERFORMED: 1151 06/05/2023 1:35 PM [facility] 06/05/2023 11:5 1 AM LIVESTOCK JUDGING COACH Ahmet Levi MD POCT ORDERABLES - DEVICE Fi nal Result [facility] [address] [place] [address], [id number] * (ABNORMAL) POCT glucose (06/05/2023 11:49 AM LIVESTOCK JUDGING COACH) [facility] GLUCOSE POC 132(H) 70 - 109 06/05/2023 12:52 PM LIVESTOCK JUDGING COACH [facility] 06/05/2023 11:4 9 AM LIVESTOCK JUDGING COACH Ahmet Levi MD POCT ORDERABLES - DEVICE Fi nal Result [facility] [address] [place] [address], [id number] * (ABNORMAL) POCT ACUTE ARTERIAL PANEL (06/05/2023 11:31 AM LIVESTOCK JUDGING COACH) SODIUM WHOLE BLOOD 135(L) 138 - 146 mmol/L 06/05/2023 1:35 PM [facility] POTASSIUM WHOLE BLOOD 5.9(H) 3.5 - 4.9 mmol/L 06/05/2023 1:35 PM [facility] CA IONIZED WH BLOOD 0.94(L) 1.12 - 1.32 mmol/L 06/05/2023 1:35 PM LIVESTOCK JUDGING COACH [facility] POC PH ARTERIAL 7.423 7.35 - 7.45 06/05/2023 1:35 PM [facility] POC PCO2 ARTERIAL 37.5 35.0 - 45.0 MMHG 06/05/2023 1:35 PM [facility] POC PO2 ARTERIAL 397(H) 80 - 105 MMHG 06/05/2023 1:35 PM [facility] POC HCO3 ARTERIAL 24.5 22 - 26 MMOL/L 06/05/2023 1:35 PM LIVESTOCK JUDGING COACH [facility] POC TCO2 ARTERIAL 26 23 - 27 MMOL/L 06/05/2023 1:35 PM [facility] POC BASE EXCESS ARTERIAL 0 0 - 3 MMOL/L 06/05/2023 1:35 PM [facility] POC HEMATOCRIT 22(L) 38 - 51 % 06/05/2023 1:35 PM [facility] TIME TEST WAS PERFORMED: 1131 06/05/2023 1:35 PM LIVESTOCK JUDGING COACH [facility] 06/05/2023 11:3 1 AM LIVESTOCK JUDGING COACH us Ahmet Levi MD POCT ORDERABLES - DEVICE Fi nal Result Performing Organization Address [facility] de Phone Number [facility] [address] [place] [address], [id number] * POCT glucose (06/05/2023 11:29 AM LIVESTOCK JUDGING COACH) [facility] GLUCOSE POC 106 70 - 109 06/05/2023 12:52 PM LIVESTOCK JUDGING COACH [facility] 06/05/2023 11:2 9 AM LIVESTOCK JUDGING COACH us Ahmet Levi MD POCT ORDERABLES - DEVICE Fi nal Result Performing Organization Address [facility] de Phone Number [facility] [address] [place] [address], [place] [phone] * (ABNORMAL) POCT ACUTE ARTERIAL PANEL (06/05/2023 11:12 AM LIVESTOCK JUDGING COACH) [facility] SODIUM WHOLE BLOOD 136(L) 138 - 146 mmol/L 06/05/2023 1:35 PM [facility] POTASSIUM WHOLE BLOOD 6.4(H) 3.5 - 4.9 mmol/L 06/05/2023 1:35 PM LIVESTOCK JUDGING COACH [facility] CA IONIZED WH BLOOD 0.88(L) 1.12 - 1.32 mmol/L 06/05/2023 1:35 PM LIVESTOCK JUDGING COACH [facility] POC PH ARTERIAL 7.506(H) 7.35 - 7.45 06/05/2023 1:35 PM [facility] POC PCO2 ARTERIAL 30.4(L) 35.0 - 45.0 MMHG 06/05/2023 1:35 PM LIVESTOCK JUDGING COACH [facility] POC PO2 ARTERIAL >450(H) 80 - 105 MMHG 06/05/2023 1:35 PM LIVESTOCK JUDGING COACH [facility] POC HCO3 ARTERIAL 24.0 22 - 26 MMOL/L 06/05/2023 1:35 PM LIVESTOCK JUDGING COACH [facility] POC TCO2 ARTERIAL 25 23 - 27 MMOL/L 06/05/2023 1:35 PM LIVESTOCK JUDGING COACH [facility] POC BASE EXCESS ARTERIAL 1 0 - 3 MMOL/L 06/05/2023 1:35 PM LIVESTOCK JUDGING COACH [facility] POC HEMATOCRIT 20(L) 38 - 51 % 06/05/2023 1:35 PM LIVESTOCK JUDGING COACH [facility] TIME TEST WAS PERFORMED: 1112 06/05/2023 1:35 PM LIVESTOCK JUDGING COACH [facility] 06/05/2023 11:1 2 AM LIVESTOCK JUDGING COACH us Ahmet Levi MD POCT ORDERABLES - DEVICE Fi nal Result Performing Organization Address [facility] Co de Phone Number [facility] [address] [place] [address], [id number] * (ABNORMAL) POCT glucose (06/05/2023 11:10 AM LIVESTOCK JUDGING COACH) [facility] GLUCOSE POC 111(H) 70 - 109 06/05/2023 12:52 PM LIVESTOCK JUDGING COACH [facility] 06/05/2023 11:1 0 AM LIVESTOCK JUDGING COACH us Ahmet Levi MD POCT ORDERABLES - DEVICE Fi nal Result Performing Organization Address [facility] de Phone Number [facility] [address] [place] [address], [id number] * (ABNORMAL) POCT ACUTE ARTERIAL PANEL (06/05/2023 10:32 AM LIVESTOCK JUDGING COACH) [facility] SODIUM WHOLE BLOOD 136(L) 138 - 146 mmol/L 06/05/2023 1:35 PM LIVESTOCK JUDGING COACH [facility] POTASSIUM WHOLE BLOOD 3.9 3.5 - 4.9 mmol/L 06/05/2023 1:35 PM LIVESTOCK JUDGING COACH [facility] CA IONIZED WH BLOOD 1.20 1.12 - 1.32 mmol/L 06/05/2023 1:35 PM LIVESTOCK JUDGING COACH [facility] POC PH ARTERIAL 7.331(L) 7.35 - 7.45 06/05/2023 1:35 PM LIVESTOCK JUDGING COACH [facility] POC PCO2 ARTERIAL 47.6(H) 35.0 - 45.0 MMHG 06/05/2023 1:35 PM LIVESTOCK JUDGING COACH [facility] POC PO2 ARTERIAL 280(H) 80 - 105 MMHG 06/05/2023 1:35 PM LIVESTOCK JUDGING COACH [facility] POC HCO3 ARTERIAL 25.2 22 - 26 MMOL/L 06/05/2023 1:35 PM LIVESTOCK JUDGING COACH [facility] POC TCO2 ARTERIAL 27 23 - 27 MMOL/L 06/05/2023 1:35 PM LIVESTOCK JUDGING COACH [facility] POC BASE DEFICIT ARTERIAL 1 0 - 2 MMOL/L 06/05/2023 1:35 PM LIVESTOCK JUDGING COACH [facility] POC HEMATOCRIT 28(L) 38 - 51 % 06/05/2023 1:35 PM LIVESTOCK JUDGING COACH [facility] TIME TEST WAS PERFORMED: 1032 06/05/2023 1:35 PM LIVESTOCK JUDGING COACH [facility] 06/05/2023 10:3 2 AM LIVESTOCK JUDGING COACH Ahmet Levi MD POCT ORDERABLES - DEVICE Fi nal Result [facility] [address] [place] [id number], [id number] * POCT glucose (06/05/2023 10:30 AM LIVESTOCK JUDGING COACH) [facility] GLUCOSE POC 91 70 - 109 06/05/2023 12:52 PM LIVESTOCK JUDGING COACH [facility] 06/05/2023 10:3 0 AM LIVESTOCK JUDGING COACH Ahmet Levi MD POCT ORDERABLES - DEVICE Fi nal Result [facility] [address] [place] [address], [id number] * (ABNORMAL) POCT ACUTE ARTERIAL PANEL (06/05/2023 7:15 AM LIVESTOCK JUDGING COACH) SODIUM WHOLE BLOOD 137(L) 138 - 146 mmol/L 06/05/2023 1:35 PM LIVESTOCK JUDGING COACH [facility] POTASSIUM WHOLE BLOOD 3.9 3.5 - 4.9 mmol/L 06/05/2023 1:35 PM LIVESTOCK JUDGING COACH [facility] CA IONIZED WH BLOOD 1.22 1.12 - 1.32 mmol/L 06/05/2023 1:35 PM LIVESTOCK JUDGING COACH [facility] POC PH ARTERIAL 7.446 7.35 - 7.45 06/05/2023 1:35 PM LIVESTOCK JUDGING COACH [facility] POC PCO2 ARTERIAL 34.1(L) 35.0 - 45.0 MMHG 06/05/2023 1:35 PM LIVESTOCK JUDGING COACH [facility] POC PO2 ARTERIAL 275(H) 80 - 105 MMHG 06/05/2023 1:35 PM LIVESTOCK JUDGING COACH [facility] POC HCO3 ARTERIAL 23.5 22 - 26 MMOL/L 06/05/2023 1:35 PM LIVESTOCK JUDGING COACH [facility] POC TCO2 ARTERIAL 24 23 - 27 MMOL/L 06/05/2023 1:35 PM LIVESTOCK JUDGING COACH [facility] POC BASE DEFICIT ARTERIAL 1 0 - 2 MMOL/L 06/05/2023 1:35 PM LIVESTOCK JUDGING COACH [facility] POC HEMATOCRIT 33(L) 38 - 51 % 06/05/2023 1:35 PM LIVESTOCK JUDGING COACH [facility] TIME TEST WAS PERFORMED: 715 06/05/2023 1:35 PM LIVESTOCK JUDGING COACH [facility] 06/05/2023 7:15 AM LIVESTOCK JUDGING COACH Ahmet Levi MD POCT ORDERABLES - DEVICE Fi nal Result Performing Organization Address [facility] de Phone Number [facility] [address] [place] [address], [id number] * POCT glucose (06/05/2023 7:13 AM LIVESTOCK JUDGING COACH) GLUCOSE POC 80 70 - 109 06/05/2023 12:52 PM LIVESTOCK JUDGING COACH [facility] 06/05/2023 7:13 AM LIVESTOCK JUDGING COACH Ahmet Levi MD POCT ORDERABLES - DEVICE Fi nal Result Performing Organization Address [facility] de Phone Number [facility] [address] [place] [address], [id number] * MAGNESIUM (06/05/2023 5:43 AM LIVESTOCK JUDGING COACH) MAGNESIUM 1.9 1.6 - 2.6 MG/DL 06/05/2023 6:26 AM LIVESTOCK JUDGING COACH [facility] 06/05/2023 5:43 AM LIVESTOCK JUDGING COACH Ahmet Levi MD LABORATORY Final Resul t Performing Organization Address [facility] de Phone Number [facility] [address] [place] [address], [id number] documented in this encounter Visit Diagnoses Not on filedocumented in this encounter Admitting Diagnoses Diagnosis S/P [...] all sources in 24 hours. albumin human 25 % solution Continuous PRN, Starting on Sun06/05/23 at 0753, Until Sun06/05/23 at 1312, Intra-Op New Bag 06/05/2023 7:53 AM [employer]STOCK JUDGING COACH 100 mLs aminocaproic acid (AMICAR) injection As needed, Starting on Sun06/05/23 at 0753, Until Sun06/05/23 at 1312, Intra-Op Given 06/05/2023 7:53 AM [employer]STOCK JUDGING COACH 5 g amiodarone (PACERONE) tablet 400 mg 400 mg, Oral, 2 times daily, First dose on Sun06/09/23 at 1500, Until Discontinued Given 06/11/2023 9:27 AM L[employer]STOCK JUDGING COACH 400 mg Given 06/10/2023 8:12 PM LIVESTOCK JUDGING COACH 400 mg Given 06/10/2023 8:45 AM LIVESTOCK JUDGING COACH 400 mg aspirin chewable tablet 81 mg 81 mg, Oral, Daily, First dose on Sun06/06/23 at 0900, Until Discontinued Given 06/11/2023 9:27 AM L[employer]STOCK JUDGING COACH 81 mg Given 06/10/2023 8:45 AM L[employer]STOCK JUDGING COACH 81 mg Given 06/09/2023 9:05 AM L[employer]STOCK JUDGING COACH 81 mg atorvastatin (LIPITOR) tablet 80 mg 80 mg, Oral, Daily, First dose on Sun06/06/23 at 1030, Until Discontinued Given 06/11/2023 9:27 AM L[employer]STOCK JUDGING COACH 80 mg Given 06/10/2023 8:45 AM L[employer]STOCK JUDGING COACH 80 mg Given 06/09/2023 9:05 AM [employer]STOCK JUDGING COACH 80 mg bisacodyl (DULCOLAX) suppository 10 mg 10 mg, Rectal, Daily as needed, Constipation, Starting on Sun06/06/23 at 0552, Until Sun06/11/23 at 1910 bisacodyl EC (DULCOLAX) tablet 10 mg 10 mg, Oral, Daily as needed, Constipation, Starting on Sun06/06/23 at 0552, Until Sun06/11/23 at 1910, Do not break, chew, or crush. calcium chloride 10 % injection As needed, Starting on Sun06/05/23 at 0753, Until Sun06/05/23 at 1312, Intra-Op Given 06/05/2023 12:48 PM [employer]STOCK JUDGING COACH 1 g Given 06/05/2023 7:53 AM L[employer]STOCK JUDGING COACH 1 g calcium citrate 950 (200 CA) MG tablet 1,900 mg 1,900 mg, Oral, Daily, First dose on Sun06/09/23 at 1300, Until Discontinued, 200 mg elemental calcium is equivalent to 950 mg calcium citrate Given 06/11/2023 9:27 AM LIVESTOCK JUDGING COACH 1,900 mg Given 06/10/2023 8:44 AM LIVESTOCK JUDGING COACH 1,900 mg Given 06/09/2023 1:30 PM L[employer]STOCK JUDGING COACH 1,900 mg cardioplegia High K (120 mEq) infusion As needed, Starting on Sun06/05/23 at 0753, Until Sun06/05/23 at 1312, Intra-Op Given 06/05/2023 7:53 AM [employer]STOCK JUDGING COACH 300 mLs cardioplegia Low K (30 mEq) infusion As needed, Starting on Sun06/05/23 at 0754, Until Sun06/05/23 at 1312, Intra-Op Given 06/05/2023 7:54 AM [employer]STOCK JUDGING COACH 350 mLs ceFAZolin (ANCEF) 1 g in sodium chloride 0.9 % 500 mL irrigation solution As needed, Starting on Sun06/05/23 at 0848, Until Sun06/05/23 at 1312, Intra-Op Given 06/05/2023 8:48 AM LIVESTOCK JUDGING COACH Operative Site docusate sodium (COLACE) capsule 100 mg 100 mg, Oral, Daily, First dose on Sun06/06/23 at 0900, Until Discontinued Given 06/09/2023 9:05 AM L[employer]STOCK JUDGING COACH 100 mg Given 06/08/2023 8:23 AM L[employer]STOCK JUDGING COACH 100 mg Given 06/07/2023 9:07 AM L[employer]STOCK JUDGING COACH 100 mg electrolyte combined (PLASMA-LYTE A) solution As needed, Starting on Sun06/05/23 at 0755, Until Sun06/05/23 at 1312, Intra-Op Given 06/05/2023 12:48 P M [employer]ST[employer] JUDGING COACH 1,000 mLs Given 06/05/2023 7:55 AM [employer]STOCK JUDGING COACH 3,000 mLs famotidine (PEPCID) tablet 20 mg 20 mg, Oral, Every 24 hours, First dose on Sun06/05/23 at 1330, Until Discontinued Given 06/11/2023 2:57 PM L[employer]STOCK JUDGING COACH 20 mg Given 06/10/2023 1:58 PM [employer]STOCK JUDGING COACH 20 mg Given 06/09/2023 12:19 PM [employer]STOCK JUDGING COACH 20 mg famotidine (PF) (PEPCID) injection 20 mg 20 mg, Intravenous, Every 24 hours, First dose on Sun06/05/23 at 1330, Until Discontinued, Give if unable to take PO. IV Push over 2 minutes Given 06/06/2023 1:18 PM [employer]STOCK JUDGING COACH 20 mg Given 06/05/2023 3:11 PM [employer]STOCK JUDGING COACH 20 mg fentaNYL (SUBLIMAZE) injection 25 mcg 25 mcg, Intravenous, Every 1 hour PRN, Moderate pain (Scale 4 - 7), Starting on Sun06/05/23 at 1316, Until Sun06/11/23 at 1910, If intravenous (IV) route has been ordered, give over 1-2 minutes. Given 06/06/2023 8:24 AM LIVESTOCK JUDGING COACH 25 mcg Given 06/06/2023 5:56 AM [employer]STOCK JUDGING COACH 25 mcg fentaNYL (SUBLIMAZE) injection 50 mcg 50 mcg, Intravenous, Every 1 hour PRN, Severe pain (Scale 8 - 10), Starting on Sun06/05/23 at 1316, Until Sun06/11/23 at 1910, If intravenous (IV) route has been ordered, give over 1-2 minutes. Given 06/06/2023 1:16 AM LIVESTOCK JUDGING COACH 50 mcg Given 06/05/2023 7:50 PM [employer]STOCK JUDGING COACH 50 mcg Given 06/05/2023 3:28 PM [employer]STOCK JUDGING COACH 50 mcg furosemide (LASIX) injection 20 mg 20 mg, Intravenous, 2 times daily, First dose on Sun06/11/23 at 0900, Until Discontinued, Administer IV push 20-40mg/min. Given 06/11/2023 9:28 AM [employer]STOCK JUDGING COACH 20 mg heparin (porcine) injection As needed, Starting on Sun06/05/23 at 0754, Until Sun06/05/23 at 1312, Intra-Op Given 06/05/2023 7:54 AM [employer]STOCK JUDGING COACH 10,000 Units heparin (porcine) injection As needed, Starting on Sun06/05/23 at 0848, Until Sun06/05/23 at 1312, Intra-Op Given 06/05/2023 8:48 AM [employer]ST[employer] JUDGING COACH 10,000 Units Operative Site hydrALAZINE (APRESOLINE) tablet 25 mg 25 mg, Oral, Every 8 hours scheduled (3 times per day), First dose on Sun06/10/23 at 2200, Until Discontinued Given 06/11/2023 2:57 PM [employer]STOCK JUDGING COACH 25 mg Given 06/11/2023 6:11 AM [employer]STOCK JUDGING COACH 25 mg Given 06/10/2023 10:29 PM [employer]ST[employer] JUDGING COACH 25 mg insulin lispro (HUMALOG) injection 0-6 [...] 400 6 units) Given 06/10/2023 10:28 PM [employer]ST[employer] JUDGING COACH 1 Units Right Lower Abdomen lidocaine 4 % patch 1 patch 1 patch, Transdermal, Administer over 12 Hours, Every 24 hours, First dose on Sun06/06/23 at 1400, Until Discontinued Patch Applied 06/10/2023 1:58 PM [employer]ST[employer] JUDGING COACH 1 patch Back Patch Applied 06/09/2023 12:20 PM [employer]ST[employer] JUDGING COACH 1 patch Back Patch Applied 06/08/2023 1:13 PM [employer]ST[employer] JUDGING COACH 1 patch Back magnesium oxide (MAG-OX) tablet 400 mg 400 mg, Oral, Daily, First dose on Sun06/09/23 at 1300, Until Discontinued Given 06/11/2023 9:28 AM [employer]STOCK JUDGING COACH 400 mg Given 06/10/2023 8:45 AM [employer]STOCK JUDGING COACH 400 mg Given 06/09/2023 1:30 PM [employer] JUDGING COACH 400 mg magnesium sulfate 50 % injection As needed, Starting on Sun06/05/23 at 1249, Until Sun06/05/23 at 1312, Intra-Op Given 06/05/2023 12:49 PM [employer]ST[employer] JUDGING COACH 2 g xhpqcpvoi-acxukwnn-wklcvseuqap (MYL[place] MAXIMUM STRENGTH) 0248-3052-819 mg/30mL suspension 5 mL, Oral, Every 4 hours PRN, Indigestion, Starting on Sun06/06/23 at 0552, Until Sun06/11/23 at 1910, Shake Well mannitol 20 % infusion (premix) Continuous PRN, Starting on Sun06/05/23 at 0754, Until Sun06/05/23 at 1312, Intra-Op New Bag 06/05/2023 7:54 AM [employer] JUDGING COACH 25 g metoclopramide (REGLAN) injection 10 mg 10 mg, Intravenous, Every 6 hours PRN, Vomiting, Nausea, Starting on Sun06/05/23 at 2045, Until Sun06/11/23 at 1910, Administer IV over 1-2 minutes Given 06/05/2023 9:12 PM [employer] JUDGING COACH 10 mg metoprolol succinate ER (TOPROL-XL) 24 hr tablet 25 mg 25 mg, Oral, 2 times daily, First dose on Sun06/08/23 at 2100, Until Discontinued, May be split in half along the tablet score line; do not chew or crush. Given 06/11/2023 9:28 AM [employer]STOCK JUDGING COACH 25 mg Given 06/10/2023 8:12 PM [employer]STOCK JUDGING COACH 25 mg Given 06/10/2023 8:44 AM [employer]STOCK JUDGING COACH 25 mg normal saline 0.9 % flush 3-10 mL 3-10 mL, Intravenous, Every 8 hours, First dose on Sun06/05/23 at 1345, Until Discontinued Given 06/11/2023 2:10 PM [employer]ST[employer] JUDGING COACH 10 mLs Given 06/10/2023 9:14 PM [employer]ST[employer] JUDGING COACH 3 mLs Given 06/10/2023 11:14 AM [employer]ST[employer] JUDGING COACH 10 mLs ondansetron (ZOFRAN) injection 4 mg 4 mg, Intravenous, Every 8 hours PRN, Nausea, Vomiting, Starting on Sun06/05/23 at 1316, Until Sun06/11/23 at 191, IV push over 2-5 minutes. Given 06/11/2023 12:07 AM [employer]STOCK JUDGING COACH 4 mg Given 06/06/2023 5:06 PM [employer]STOCK JUDGING COACH 4 mg Given 06/06/2023 4:28 AM [employer]STOCK JUDGING COACH 4 mg oxyCODONE-acetaminophen (PERCOCET) 5-325 MG tablet 1 tablet 1 tablet, Oral, Every 4 hours PRN, Severe pain (Scale 8 - 10), Starting on Sun06/06/23 at 0552, Until Sun06/11/23 at 1910, Maximum dose of acetaminophen is 4000 mg from all sources in 24 hours. Given 06/10/2023 11:59 PM [employer]ST[employer] JUDGING COACH 1 tab let Given 06/09/2023 8:33 PM [employer]ST[employer] JUDGING COACH 1 tablet Given 06/09/2023 9:10 AM [employer]STOCK JUDGING COACH 1 tablet papaverine injection As needed, Starting on Sun06/05/23 at 0848, Until Sun06/05/23 at 1312, Intra-Op Given 06/05/2023 8:48 AM [employer]ST[employer] JUDGING COACH 60 mg Operative Site phenylephrine (ANASTASIA-SYNEPHRINE) injection As needed, Starting on Sun06/05/23 at 0754, Until Sun06/05/23 at 1312, Intra-Op Given 06/05/2023 7:54 AM LIVESTOCK JUDGING COACH 300 mcg polyethylene glycol (GLYCOLAX) packet 17 g 17 g, Oral, Daily, First dose on Sun06/06/23 at 0900, Until Discontinued, Dissolve in 120-240mL of beverage Given 06/09/2023 9:05 AM LIVESTOCK JUDGING COACH 17 g Given 06/08/2023 8:23 AM [employer]IVESTOCK JUDGING COACH 17 g Given 06/07/2023 9:07 AM [employer]IVEST[employer] JUDGING COACH 17 g potassium chloride CR (KLOR-CON M) tablet 20 mEq 20 mEq, Oral, Daily, First dose on Sun06/08/23 at 2100, Until Discontinued, Do not chew, crush, or suck on tablet. May break in half. May dissolve whole tablet in 120 mL of water and drink immediately. Given 06/11/2023 9:28 AM [employer]IVEST[employer] JUDGING COACH 20 mEq Given 06/10/2023 8:45 AM [employer] JUDGING COACH 20 mEq Given 06/08/2023 8:38 PM [employer]IVE[employer] JUDGING COACH 20 mEq sacubitril-valsartan (ENTRESTO) 24-26 MG tablet 1 tablet 1 tablet, Oral, 2 times daily, First dose on Sun06/09/23 at 1300, Until Discontinued Given 06/11/2023 9:27 A M [employer] JUDGING COACH 1 tablet Given 06/10/2023 8:12 PM [employer] JUDGING COACH 1 tablet Given 06/10/2023 8:45 AM [employer] JUDGING COACH 1 tablet senna-docusate (SENOKOT-S) 8.6-50 MG tablet 1 tablet 1 tablet, Oral, 2 times daily, First dose on Sun06/06/23 at 0900, Until Discontinued Given 06/09/2023 9:05 A M [employer] JUDG[employer] COACH 1 tablet Given 06/08/2023 8:38 PM [employer] JUDGING COACH 1 tablet Given 06/08/2023 8:23 AM [employer] JUDGING COACH 1 tablet sodium bicarbonate 8.4 % injection As needed, Starting on Sun06/05/23 at 0755, Until Sun06/05/23 at 1312, Intra-Op Given 06/05/2023 12:49 PM [employer] JUDGING COACH 50 mEq Given 06/05/2023 7:55 AM [employer] JUDGING COACH 50 mEq sodium chloride 0.9% bolus infusion Continuous PRN, Starting on Sun06/05/23 at 0755, Until Sun06/05/23 at 1312, Intra-Op New Bag 06/05/2023 12:49 PM [employer] JUDGING COACH 1,000 mLs New Bag 06/05/2023 7:55 AM [employer]IVE[employer] JUDG[employer] COACH 2,000 mLs spironolactone (ALDACTONE) Split tab 12.5 mg 12.5 mg, Oral, Daily, First dose on Sun06/10/23 at 0900, Until Discontinued, HAZARDOUS MEDICATION: wear single chemotherapy approved gloves. Do not open or split. If crushing, use approved closed-system crushing device for hazardous medications. Given 06/11/2023 9:29 AM [employer] JUDGING COACH 12.5 mg Given 06/10/2023 8:44 AM [employer] JUDG[employer] COACH 12.5 mg thrombin solution As needed, Starting on Sun06/05/23 at 0848, Until Sun06/05/23 at 1312, Intra-Op Given 06/05/2023 8:48 AM [employer]IVE[employer] JUDGING COACH 5,000 Units Operative Site traMADol (ULTRAM) tablet 100 mg 100 mg, Oral, Every 6 hours PRN, Other, Severe pain (Scale 8 - 10), Starting on Sun06/05/23 at 1316, Until Sun06/11/23 at 1910, after extubation and tolerating PO Given 06/06/2023 7:50 PM LIVESTOCK JUDGING COACH 100 mg traMADol (ULTRAM) tablet 50 mg 50 mg, Oral, Every 4 hours PRN, Moderate pain (Scale 4 - 7), after extubation and tolerating PO, Starting on Sun06/05/23 at 1316, Until Sun06/11/23 at 1910 Given 06/07/2023 6:02 AM LIVESTOCK JUDGING COACH 50 mg Given 06/06/2023 11:56 AM LIVESTOCK JUDGING COACH 50 mg Given 06/06/2023 5:57 AM LIVESTOCK JUDGING COACH 50 mg vitamin B-12 (CYANOCOBALAMIN) tablet 500 mcg 500 mcg, Oral, Daily, First dose on Sun06/06/23 at 1030, Until Discontinued Given 06/11/2023 9:28 AM LIVESTOCK JUDGING COACH 500 mcg Given 06/10/2023 8:45 AM LIVESTOCK JUDGING COACH 500 mcg Given 06/09/2023 9:05 AM LIVESTOCK JUDGING COACH 500 mcg vitamin C (ASCORBIC ACID) tablet 1,000 mg 1,000 mg, Oral, Daily, First dose on Sun06/06/23 at 1030, Until Discontinued Given 06/11/2023 9:28 AM LIVESTOCK JUDGING COACH 1,000 mg Given 06/10/2023 8:44 AM LIVESTOCK JUDGING COACH 1,000 mg Given 06/09/2023 9:05 AM LIVESTOCK JUDGING COACH 1,000 mg vitamin D3 (cholecalciferol) tablet 50 mcg 50 mcg, Oral, Daily, First dose on Sun06/09/23 at 1300, Until Discontinued Given 06/11/2023 9:27 AM LIVESTOCK JUDGING COACH 50 mcg Given 06/10/2023 8:45 AM LIVESTOCK JUDGING COACH 50 mcg Given 06/09/2023 1:30 PM LIVESTOCK JUDGING COACH 50 mcg vitamin E capsule 400 Units 400 Units, Oral, Daily, First dose on Sun06/09/23 at 1300, Until Discontinued Given 06/11/2023 9:27 AM LIVESTOCK JUDGING COACH 400 Unit s Given 06/10/2023 8:45 AM LIVESTOCK JUDGING COACH 400 Units Given 06/09/2023 1:30 PM LIVESTOCK JUDGING COACH 400 Units documented in this encounter Active and Recently Administered Medications Times are shown in LIVESTOCK JUDGING COACH. Scheduled Medication Order 06/09/2023 06/10/2023 06/11/2023 amiodarone (CORDARONE) 150 mg in dextrose 5 % 100 mL IVPB bolus (COMPLETED) 150 mg, Intravenous, at 600 mL/hr, Once, 1 dose, On Sun06/10/23 at 2044, Patient must be on telemetry. 2041 (New Bag - Provider: Braydon Ngo RN)2109 (Infusion Stop Time - Provider: Braydon Ngo RN) amiodarone (PACERONE) tablet 400 mg 400 mg, Oral, 2 times daily, First dose on Sun06/09/23 at 1500, Until Discontinued 1500 (Given - Provider: Eagle Lai RN) 0845 (Given - Provider: Eagle Lai RN)2011 [...] dose on Sun06/10/23 at 0900, Until Discontinued 08 (Given - Provider: Eagle Lai RN) aspirin chewable tablet 81 mg 81 mg, Oral, Daily, First dose on Sun06/06/23 at 0900, Until Discontinued 904 (Given - Provider: Eagle Lai RN) 0845 (Given - Provider: Eagle Lai RN) 09 (Given - Provider: Monica Sierra RN) atorvastatin (LIPITOR) tablet 80 mg 80 mg, Oral, Daily, First dose on Sun06/06/23 at 1030, Until Discontinued 904 (Given - Provider: Eagle Lai RN) 0845 (Given - Provider: Eagle Lai RN) 09 (Given - Provider: Monica Sierra RN) calcium citrate 950 (200 CA) MG tablet 1,900 mg 1,900 mg, Oral, Daily, First dose on Sun06/09/23 at 1300, Until Discontinued, 200 mg elemental calcium is equivalent to 950 mg calcium citrate 1330 (Given - Provider: Eagle Lai RN) 0844 (Given - Provider: Eagle Lai RN) 09 (Given - Provider: Monica Sierra RN) docusate sodium (COLACE) capsule 100 mg 100 mg, Oral, Daily, First dose on Sun06/06/23 at 0900, Until Discontinued 904 (Given - Provider: Eagle Lai RN) 0845 [...] Lai RN) 1457 (Given - Provider: Monica Sierra, SARAH) famotidine (PF) (PEPCID) injection 20 mg(Linked Group 1) 20 mg, Intravenous, Every 24 hours, First dose on Sun06/05/23 at 1330, Until Discontinued, Give if unable to take PO. IV Push over 2 minutes 1219 (See Alternative - Provider: Eagle Lai RN) 1358 (See Alternative - Provider: Eagle Lai RN) 1457 (See Alternative - Provider: Monica Sierra, SARAH) furosemide (LASIX) injection 20 mg (CANCELED) 20 mg, Intravenous, Daily, First dose on Sun06/07/23 at 1730, Until Discontinued, Administer IV push 20-40mg/min. 0905 (Given - Provider: Eagle Lai RN) furosemide (LASIX) injection 20 mg 20 mg, Intravenous, 2 times daily, First dose on Sun06/11/23 at 0900, Until Discontinued, Administer IV push 20-40mg/min. 0928 (Given - Provider: Monica Sierra, SARAH)1700 (Canceled Entry - Provider: Automatic Discharge Provider - Comment: Automatically canceled at discontinue of medication order) furosemide (LASIX) injection 40 mg (CANCELED) 40 mg, Intravenous, Daily, First dose (after last modification) on Sun06/10/23 at 0900, Until Discontinued, Administer IV push 20-40mg/min. 1114 (Given - Provider: Eagle aLi RN) heparin (porcine) injection 5,000 Units (CANCELED) 5,000 Units, Subcutaneous, Every 8 hours scheduled (3 times per day), First dose on Sun06/07/23 at 2200, Until Discontinued 05 (Given - Provider: Braydon Ngo RN) hydrALAZINE (APRESOLINE) tablet 25 mg 25 mg, Oral, Every 8 hours scheduled (3 times per day), First dose on Sun06/10/23 at 2200, Until Discontinued 2228 (Given - Provider: Braydon Ngo RN - [...] 135/88HR: 170) 0928 (Given - Provider: Monica Sierra RN) normal saline 0.9 % flush 3-10 mL 3-10 mL, Intravenous, Every 8 hours, First dose on Sun06/05/23 at 1345, Until Discontinued 0552 (Not Given - Provider: Braydon Ngo RN - Reason: Patient sleeping)1220 (Given - Provider: Eagle Lai RN)203 (Given - Provider: Braydon Ngo RN) 0537 (Not Given - Provider: Braydon Ngo RN - Reason: Patient sleeping)1114 (Given - Provider: Eagle Lai RN)2114 (Given - Provider: Braydon Ngo RN) 0536 (Not Given - Provider: Braydon Ngo RN - Reason: Patient sleeping)1410 (Given - Provider: Monica Sierra, RN) polyethylene glycol (GLYCOLAX) packet 17 g [...] Lai RN) 0928 (Given - Provider: Monica Sierra, SARAH) potassium chloride CR (KLOR-CON M) tablet 40 [...] Ngo RN - Comment: BP: 152/62HR: 80) 844 (Given - Provider: Eagle Lai RN)2011 (Given [...] stools today) 844 (Not Given - Provider: Eagle Lai RN - Reason: Patient/family declined)2231 (Not [...] (Given - Provider: Monica Sierra RN) vitamin C (ASCORBIC ACID) tablet 1,000 mg 1,000 mg, Oral, Daily, First dose on Sun06/06/23 at 1030, Until Discontinued 904 (Given - Provider: Eagle Lai RN) 08 (Given - Provider: Eagle Lai RN) 927 (Given - Provider: Monica Sierra, RN) vitamin D3 (cholecalciferol) tablet 50 mcg 50 mcg, Oral, Daily, First dose on 06/09/23 at 1300, Until Discontinued 1330 (Given - Provider: Eagle Lai RN) 0845 (Given - Provider: Eagle Lai RN) 926 (Given - Provider: Monica Sierra, RN) vitamin E capsule 400 Units 400 Units, Oral, Daily, First dose on 06/09/23 at 1300, Until Discontinued 1330 (Given - Provider: Eagle Lai RN) 08 (Given - Provider: Eagle Lai RN) 926 (Given - Provider: Monica Sierra, RN) warfarin (COUMADIN) tablet 5 mg (CANCELED) 5 [...] on telemetry. Use 0.22 micron inline filter 2112 (New Bag - Provider: Braydon Ngo RN) 0322 (Rate/Dose Change - Provider: Braydon Ngo RN)0608 (New Bag - Provider: Braydon Ngo RN)0926 (Infusion Stop Time - Provider: Monica Sierra [...] Sun06/05/23 at 1316, Until Sun06/11/23 at 191, If intravenous (IV) route has been ordered, give over 1-2 minutes. magnesium sulfate 4 GM/100ML infusion 4 g 4 g, Intravenous, PRN, Magnesium levels less than 2 mg/dL, Starting on Sun06/05/23 at 1316, Until Sun06/11/23 at 191, May give every 4 hours as needed for magnesium level. bddkrghtb-ixirurhf-csgzn hicone (MYLANTA MAXIMUM STRENGTH) 6822-4819-043 mg/30mL suspension 5 mL, Oral, Every 4 [...] Sun06/05/23 at 1316, Until Sun06/11/23 at 191 ondansetron (ZOFRAN) injection 4 mg 4 mg, [...] mg from all sources in 24 hours. 09 (Given - Provider: Eagle Lai RN)2032 (Given - Provider: Braydon Ngo RN) 2358 (Given - Provider: Braydon Ngo RN) [...] Sun06/05/23 at 1316, Until Sun06/11/23 at 191, after extubation and tolerating PO traMADol (ULTRAM) [...] 1910 documented in this encounter Care Teams Farmworker Cranberry Relationship Specialty Start Date End Date Davin Estrada MD [address] [place] [address] [address] [place] [address] PCP - General FAMILY PRACTICE 04/12/23 Lee Villaseñor MD [address] [place] [address] Consulting Physician INTERNAL MEDICINE 05/28/23 documented as of this encounter
--- OUTSIDE RECORDS SUMMARY | 2024-04-27 15:47 | XMS_ITS | Encounter Summary ---
Author Organization [facility] Address [address] [place] [address]. [place] [address] [place] [address] Care Team Providers Care Chart Writer Name Role Phone Davin Estrada MD Primary Care Provider Reason for Visit * Reason Onset Date Comments Results 05/23/2023 Vein mapping Lab Results 05/23/2023 Lipids/LFT's Encounter Details Date Type Department Care Team (Late st Contact Info) Description 05/23/2023 [facility]phone [facility] [address] [place] [address] Judah House MD [address] [facility] [address] [place] [address] Results (Vein mapping); Lab Results (Lipids/LFT's) Social History Tobacco Use Types Packs/Day Years Used Date Smoking Tobacco: Never Passive Smoke Exposure: Never Smokeless Tobacco: Never Alcohol Use Standard Drinks/Week Comments Yes 0 (1 standard drink = 0.6 oz pur e alcohol) occasional wine [facility] Utilities Answer Date Recorded In the past 12 months has e electric, gas, oil, or water [employer] threatened to shut off services in your [...] and heating? Not hard at all 04/27/2023 [facility] [place] of Occupat ional Health - Occupational [...] slept in a snf (including now)? No 04/27/2023 Comments Unknown Sex and Gender Information Value Date Recorded Sex Assigned at Not on file Legal Sex Female 3:10 PM SOLAR SALES REP Gender Identity Not on file Sexual Orientation [...] in this encounter Progress Notes * Kelsie Tuttle RN - 05/23/2023 4:07 PM CST I spoke with the patient. We discussed Dr. House's referral request. We scheduled the patient for Sunday, May 28, 2023 at 3 pm in [place]. The patient verbalized understanding. R SALES REP R SALES REP * Starr Stapleton RN - 05/23/2023 3:49 PM CST Called pt with lipid results. LDL is 146. Dr. House recommends Rosuvastatin 40mg daily with a lipid/LFT recheck in 3 months. Pt is agreeable. RX sent to [facility]. 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 Pt has a right femoral venous pseudo-aneurysm. Pt states she has a small knot and some discomfort to her right groin. Dr. House recommends she see Dr. Villaseñor for evaluation. She is agreeable. Will ask his nurse to call her to schedule. R SALES REP documented in this encounter Plan of Treatment Upcoming Encounters Date Type Department Care Team (Late st Contact Info) Description 02/12/2025 11:30 AM CDT Office Visit [facility] [address] [place] [address] Jun Oscar, RUBBER ENGRAVER [address] [place] [address] documented as of this encounter Visit Diagnoses Not on filedocumented in this encounter Care Teams Chart Writer Relationship Specialty Start Date End Date Davin Estrada MD [address] [place] [address] [address] [place] [address] PCP - General FAMILY PRACTICE 04/12/23 documented as of this encounter
--- OUTSIDE RECORDS SUMMARY | 2024-04-27 15:47 | XMS_ITS | Encounter Summary ---
Author Organization [facility] Address [address] [place] [address]. [place], [place] [id number] [place] [address] Care Team Providers Care Forest Economics Professor Name Role Phone Davin Estrada MD Primary Care Provider [phone] Encounter Details Date Type Department Care Team (Latest Contact Info) Description 04/12/2023 Travel Social History Tobacco Use Types Packs/Day Years Used Date Smoking Tobacco: Never Passive Smoke Exposure: Never Smokeless Tobacco: Never [facility] Utilities Answer Date Recorded In the past 12 months has [facility] electric, gas, oil, or water [employer] threatened to shut off services in your home? No 04/12/2023 Humiliation, Afraid, Rape, and Kick questionnair e Answer Date Recorded Within the last year, have y ou been afraid of your partner or ex-partner? No 04/12/2023 Within the last year, have y ou been humiliated or emotionally abused in other ways by your partner or ex-partner? No Within the last year, have y ou been kicked, hit, slapped, or otherwise physically hurt by your partner or ex-partner? No 04/12/2023 Within the last year, have y ou been raped or forced to have any kind of sexual activity by your partner or ex-partner? No 04/12/2023 Overall Financial Resource Strain (CARDIA) Answe r Date Recorded How hard is it for you to pa y for the very basics like food, housing, medical care, and heating? Not hard at all 04/12/2023 Hunger Vital Sign Answer Date Recorded Within the past 12 months, y ou worried that your food would run out before you got the money to buy more. Never true 04/12/20 23 Within the past 12 months, t he food you bought just didn't last and you didn't have money to get more. Never true 04/12/2023 PRAPARE - Transportation Answer Date Re corded In the past 12 months, has l ack of transportation kept you from medical appointments or from getting medications? No 03/24 In the past 12 months, has l ack of transportation kept you from meetings, work, or from getting things needed for daily living? No 04/12/2023 Housing Stability Vital Sign Answer Michael e Recorded In the last 12 months, was t here a time when you were not able to pay the mortgage or rent on time? No 04/12/2023 In the last 12 months, how many places have you lived? 1 04/12/2023 In the last 12 months, was t here a time when you did not have a steady place to sleep or slept in a [place] [facility] [place] facility (including now)? No 04/12/2023 Comments Unknown Sex and Gender Information Value Date Recorded Sex Assigned at Not on file Legal Sex Female 3:10 PM OPTICAL LABORATORY MANAGER Gender Identity Not on file Sexual Orientation Not on file documented as of this encounter Functional Status documented as of this encounter Mental Status * Question Answer Entry Date Author Status Because of a physical, mental, or emotional condition, do you have serious difficulty concentrating, remembering, or making decisions? No 04/12/2023 8:35 PM OPTICAL LABORATORY MANAGER Braydon Ngo RN Active documented in this encounter Plan of Treatment Upcoming Encounters Date Type Department Care Team (Late st Contact Info) Description 02/12/2025 11:30 AM CDT Office Visit [facility] [address] [place] [address] Jun Oscar, SUPERINTENDENT TRANSPORTATION [address] [place], [place] [address] documented as of this encounter Visit Diagnoses Not on filedocumented in this encounter Care Teams Forest Economics Professor Relationship Specialty Start Date End Date Davin Estrada MD [address] [place] [address] [address] [place] [address] PCP - General FAMILY PRACTICE 04/12/23 documented as of this encounter
--- OUTSIDE RECORDS SUMMARY | 2024-04-27 15:47 | XMS_ITS | Encounter Summary ---
Author Organization [facility] Address [address] [place] [address]. [place], [place] [id number] [place] [address] Care Team Providers Care Copy Reader Name Role Phone Davin Estrada MD Primary Care Provider Lee Villaseñor MD Unavailable Darell Garcia MD Unavailable [phone] Jun Oscar NP Unavailable [phone] Judah House MD Unavailable [phone] Encounter Details Date Type Department Care Team (Late st Contact Info) Description 04/17/2023 Hospital Follow-up Call [facility] [address] [place] [address] Josselyn Bernal, RN Social History Tobacco Use Types Packs/Day Years Used Date Smoking Tobacco: Never Passive Smoke Exposure: Never Smokeless Tobacco: Never [facility] Utilities Answer Date Recorded In the past [...] slept in a penitentiary (including now)? No 04/12/2023 Comments Unknown Sex and Gender Information Value Date Recorded Sex Assigned at Not on file Legal Sex Female 3:10 PM BLOCK TRIMMER Gender Identity Not on file Sexual Orientation Not on file documented as of this encounter Functional Status * Are you deaf or do you have serious difficulty hearing Answer Date of Assessment Author Status No 04/12/2023 8:35 PM BLOCK TRIMMER Trenton Ngo RN Active * Are you blind or do you have serious difficulty seeing, even when wearing glasses? Answer Date of Assessment Author Status No 04/12/2023 8:35 PM Trenton Taylor RN Active * Do you have serious difficulty walking or climbing stairs? Answer Date of Assessment Author Status No 04/12/2023 8:35 PM Trenton Taylor RN Active * Do you have difficulty dressing or bathing? Answer Date of Assessment Author Status No 04/12/2023 8:35 PM Trenton Taylor RN Active * Because of a physical, mental, or emotional condition, do you have difficulty doing errands alone such as visiting a doctor's office or shopping? Answer Date of Assessment Author Status No 04/12/2023 8:35 PM Trenton Taylor RN Active documented as of this encounter Mental Status * Because of a physical, mental, or emotional condition, do you have serious difficulty concentrating, remembering, or making decisions? Answer Entry Date Author Status No 04/12/2023 8:35 PM Trenton Taylor RN Active documented in this encounter Plan of Treatment Upcoming Encounters Date Type Department Care Team (Late st Contact Info) Description 02/12/2025 11:30 AM CDT [facility] [address] [place] [address] Jun Oscar, ADMINISTRATION DEAN [address] [place] [address] documented as of this encounter Visit Diagnoses Not on filedocumented in this encounter Care Teams Copy Reader Relationship Specialty Start Date End Date Davin Estrada MD [address] [place] [address] [address] [place] [address] PCP - General FAMILY PRACTICE 04/12/23 Lee Villaseñor MD [address] [place] [address] Consulting Physician INTERNAL MEDICINE 05/28/23 Darell Garcia MD [address] [address] Consulting Physician CLINICAL CARDIAC ELECTROPHYSIOLOGY 02/08/24 Jun Oscar NP [address] [place] [address] Nurse Practitioner NURSE PRACTITIONER 02/08/24 Judah House MD [address] [place] [phone] Consulting Physician INTERVENTIONAL CARDIOLOGY 02/12/24 documented as of this encounter
--- OUTSIDE RECORDS SUMMARY | 2024-04-27 15:47 | XMS_ITS | Encounter Summary ---
Author Organization [facility] Address [address] [place] [address]. [place], [place] [id number] [place] [id number] Care Team Providers Care Fulfillment Mail Clerk Name Role Phone Davin Estrada MD Primary Care Provider [phone] Encounter Details Date Type Department Care Team (Latest Contact Info) Description 05/21/2023 Travel Social History Tobacco Use Types Packs/Day Years Used Date Smoking Tobacco: Never Passive Smoke Exposure: Never Smokeless Tobacco: Never Alcohol Use Standard Drinks/Week Comments Yes 0 (1 standard drink = 0.6 oz pur e alcohol) occasional wine [facility] Utilities Answer Date Recorded In the past 12 months has e [employer], gas, oil, or water [employer] threatened to shut off services in your [...] and heating? Not hard at all 04/27/2023 [facility] [place] of Occupat ional Health - Occupational Stress [...] slept in a penitentiary (including now)? No 04/27/2023 Comments Unknown Sex and Gender Information Value Date Recorded Sex Assigned at Not on file Legal Sex Female 3:10 PM GARDEN LABOURER Gender Identity Not on file Sexual Orientation [...] Assessment Author Status No 04/27/2023 11:00 PM GARDEN LABOURER Kampwerth, Pia R, RN Active * Do you have serious [...] Description 02/12/2025 11:30 AM CDT Office Visit [facility] [address] [place] [address] Jun Oscar, SECRETARY OFFICE CLERK [address] [place] [address] documented as of this encounter Visit Diagnoses Not on filedocumented in this encounter Care Teams Fulfillment Mail Clerk Relationship Specialty Start Date End Date Davin Estrada MD [address] [place] [address] [address] [place] [address] PCP - General FAMILY PRACTICE 04/12/23 documented as of this encounter
--- OUTSIDE RECORDS SUMMARY | 2024-04-27 15:47 | XMS_ITS | Encounter Summary ---
Author Organization [facility] Address [address] [place] [address]. [place], [place] [id number] [place] [address] Care Team Providers Care Shipping And Receiving Supervisor Name Role Phone Davin Estrada MD Primary Care Provider [phone] Reason for Referral * Imaging (Urgent) - New Request Specialty Diagnoses / Procedures Referred By Contac t Referred To Contact RADIOLOGY Diagnoses Preop examination Coronary artery disease involving grand ronde tribes coronary artery of grand ronde tribes heart, unspecified whether angina present Procedures USV VEIN MAPPING LOW MAULIK Amador Dillon NP Phone: tel: fax: Referral ID Status Reason Start Date Expiration Date V isits Requested Visits Authorized [id number] New Request 05/21/2023 05/21/2024 1 1 EMENT SPECIALIST * Imaging (Urgent) - New Request Specialty Diagnoses / Procedures Referred By Contac t Referred To Contact RADIOLOGY Diagnoses Preop examination Bruit Procedures USV CAROTID DUPLEX MAULIK Amador Dillon NP Phone: tel: fax: Referral ID Status Reason Start Date Expiration Date V isits Requested Visits Authorized [id number] New Request 05/21/2023 05/21/2024 1 1 EMENT SPECIALIST * Imaging (Routine) - Closed Specialty Diagnoses / Procedures Referred By Eron bullock Referred To Contact RADIOLOGY Diagnoses Cardiomyopathy, unspecified type (CMS/HCC HHS/HCC) Procedures [facility] Judah Simental MD [address] [place] [address] Phone: tel: fax: Referral ID Status Reason Start Date Expiration Date Visits Re quested Visits Authorized [id number] Closed 05/04/2023 06/03/2024 1 1 EMENT SPECIALIST Reason for Visit * Imaging (Routine) - Closed Specialty Diagnoses / Procedures Referred By Eron bullock Referred To Contact RADIOLOGY Diagnoses Cardiomyopathy, unspecified type (CMS/HCC HHS/HCC) Procedures [facility] Judah Simental MD [address] [place] [address] Phone: tel: fax: Referral ID Status Reason Start Date Expiration Date Visits Re quested Visits Authorized [id number] Closed 05/04/2023 06/03/2024 1 1 Encounter Details Date Type Department Care Team (Latest Contact Info) Description 05/21/2023 10:10 AM PLACEMENT SPECIALIST - 05/21/2023 6:30 PM PLACEMENT SPECIALIST Hospital Encounter [facility] Meat Cutting Teacher Pre/Post [address] [place] [address] Judah Youssef MD [address] [place] [address] Discharge Disposition: Home or Self Care (Routine Discharge) Social History Tobacco Use Types Packs/Day Years Used Date Smoking Tobacco: Never Passive Smoke Exposure: Never Smokeless Tobacco: Never Alcohol Use Standard Drinks/Week Comments Yes 0 (1 standard drink = 0.6 oz pur e alcohol) occasional wine [facility] Utilities Answer Date Recorded In the past 12 months has [employer], gas, oil, or water [employer] threatened to shut off services in your [...] and heating? Not hard at all 04/27/2023 [facility] - [...] in a senior care (including now)? No 04/27/2023 Comments Unknown Sex and Gender Information Value Date Recorded Sex Assigned at Not on file Legal Sex Female 3:10 PM PLACEMENT SPECIALIST Gender Identity Not on file Sexual Orientation Not on file documented as of this encounter Last Filed Vital Signs Vital Sign Reading Time Taken Comments Blood Pressure 151/72 05/21/2023 10:56 AM PLACEMENT SPECIALIST Pulse 67 05/21/2023 10:56 AM PLACEMENT SPECIALIST Temperature 36.4 ??C (97.5 ??F) 05/21/2023 10:[address] Respiratory Rate 18 05/21/2023 10:56 AM PLACEMENT SPECIALIST Oxygen Saturation 99% 05/21/2023 10:56 AM PLACEMENT SPECIALIST Inhaled Oxygen Concentration - - Weight 60.9 kg (134 lb 4.2 oz) 05/21/2023 10:24 AM PLACEMENT SPECIALIST Height 160 cm (5' 2.99 ) 05/21/2023 10:24 AM PLACEMENT SPECIALIST Body Mass Index 23.79 05/21/2023 10:24 AM PLACEMENT SPECIALIST documented in this encounter Functional Status * Are you deaf or do you have serious difficulty hearing Answer Date of Assessment Author Status No 04/27/2023 11:00 PM PLACEMENT SPECIALIST Pia Chowdary RN Active * Are you blind or do you have serious difficulty seeing, even when wearing glasses? Answer Date of Assessment Author Status No 04/27/2023 11:00 PM PLACEMENT SPECIALIST Pia Chowdary RN Active * Do you [...] Date Author Status No 04/27/2023 11:00 PM PLACEMENT SPECIALIST Pia Chowdary RN Active documented in this encounter Discharge Summaries * Judah Youssef MD - 05/21/2023 12:00 AM CST Patient Name: KENDY SALCIDO Date of : 1945 Account: [id number] Facility: [facility] Location: [facility] Date of Service: 05/21/2023 Discharge Summary PRIMARY CARE PHYSICIAN: Dr. Davin Estrada. Dear Dr. Estrada: I am writing to update for your records the details of Mrs. Salcido's cardiac catheterization, procedure performed at [facility] in [place] on 05/21/2023. Please refer to my recent clinicevaluation, which was forwarded to your attention. She was brought in electively as an outpatient to undergo the procedure. Left heart catheterization, selective coronary angiography and left ventricular pressures were measured without complications via the right femoral approach. She has a right subclavian stenosis preventing catheterization via the right radial approach. Left ventricular end diastolic pressure is approximately 18 mmHg. The left main coronary artery is angiographically normal. The left anterior descending artery had an 80% proximal stenosis. The firstdiagonal branch has a 90% stenosis. The OM1 branch of the circumflex artery has 70 and 80% stenosis. The right coronary artery is calcified in its mid portion and has 70 and 80% stenosis. In view of the above angiographic findings, she is best treated with surgical revascularization. I will arrange for her to see Dr. Levi to undergo elective coronary artery bypass grafting. She is being discharged home in stable condition. A list of discharge medications will be forwardedto your attention. She was instructed to contact your office for a followup appointment with yourself within the next several weeks. I will arrange to see her electively for ongoing cardiovascular care. On behalf of [facility], thank you for the opportunity to assist in her care. Please do not hesitate to contact me with any questions you may. Signature/Date: JUDAH YOUSSEF MD #[id number] /KUL EMENT SPECIALIST documented in this encounter Discharge Instructions * Discharge Instructions* Maddie Conte RN - 05/21/2023 3:20 PM PLACEMENT SPECIALIST Post Catheterization Discharge - Radial Approach 1. Do not bend wrist for 48 hours. Avoid using your wrist when standing out of a chair. 2. Drink 3-4 glasses of water over the next 8 hours and resume routine diet. 3. A medication list and instructions have been provided separately. 4. Do not drive for 48 hours after procedure. 5. No lifting more than 5 pounds and no exercise (including golf and tennis) for 2-3 days. 6 Do not operate equipment, such as an ATV, laryngologist, chainsaw, or motorcycle for 48 hours. 7. Notify your fiberglass boat assembly supervisor of swelling or drainage at the site, or numbness, tingling, coldness, or cramping in hand/arm during rest or activity. Soreness is normal. Take Tylenol for pain. 8. Notify your fiberglass boat assembly supervisor or your primary care physician if you develop a fever greater than 101 degrees. 9. If the site begins to bleed, sit down and hold firm pressure for 10 minutes directly to the site. If bleeding stops, continue to sit, keeping wrist straight and contact physician as soon as possible. If bleeding does not stop, call 911 immediately. 10. Remove dressing 24 hours after the procedure. You may shower the next day. Do not scrub the site or apply direct water to area. Do not submerge in water for 7 days. No dishes in the sink. Pat thesite dry, but do not rub! 11. If you experience any problems, please call your primary care physician or your fiberglass boat assembly supervisor [phone]. Discharge Instructions After Your Cath/Stent Procedure GROIN PROCEDURE: If your procedure was performed through your groin, avoid lifting (no more than 5 pounds), squatting, and heavy activity for 3 days. Try to avoid coughing, sneezing, and straining with a bowel movement over the next 24 hours. If you must do so, apply direct pressure to the site with your fingers to protect it. WRIST PROCEDURE: If your procedure was performed through the wrist, avoid lifting (no more than 5 pounds with that arm) and heavy activity for 2 days. YOU MAY NOT DRIVE YOURSELF HOME THE DAY OF YOUR PROCEDURE. During the procedure you were given sedation that can affect your judgement. As the passenger, it is important to take a break every 60-90 minutes during the trip home to stretch your legs. FATIGUE AND WEAKNESS: It is normal to have some fatigue and weakness for a day or so after your procedure. This is due to the sedation used for the procedure and the bedrest during your hospital stay. SITE CARE: Remove the dressing from your procedure site the next day. You may want to remove the dressing in the shower, allowing the dressing to become wet but keeping the direct force of the water away from the site. Pat the site dry after your shower. You may shower, but do not sit in a bath tub, hot tub, or swim for 3-4 days. It is not necessary to keep the area covered. You should, however, keep it clean and dry for 3-4 days. It is common to feel a pea-sized knot at the site of your groin procedure for several weeks. CALL OUR OFFICE IF YOU NOTICE: - Swelling at the site of your procedure - Increased pain at the site - Fever (greater than 101 degrees) - Any signs of infection at the site such as redness or drainage BRUISING: Bruising at the cath site is not unusual. The discoloration may spread down your leg or arm and take several weeks to completely disappear. This is acceptable as long as there is no swelling or increased pain at the site. Soreness is not uncommon. Take Tylenol for pain. BLEEDING: If site begins to bleed. THIS IS AN EMERGENCY. You should lay flat and hold pressure directly to site or have someone else hold firm pressure. You need to try to get the bleeding to stop. CALL [address] TO THE ER. DO NOT HAVE SOMEONE DRIVE YOU. IF YOU FEEL THAT YOU NEED IMMEDIATE ATTENTION, GO TO THE NEAREST EMERGENCY ROOM OR CALL 911. See your family doctor in 10-14 days or sooner if you have problems. Your procedure results will besent to your doctor. See your fiberglass boat assembly supervisor as directed. Continue medications as directed. Our office is open Sunday through Sunday from 8:00am to 4:30 pm, if you have general questions or if you need to schedule an appointment. Call at [phone] Due to the sedation you received today, (for 24 hours) please do not: -Sign any legal documents or make any important decisions -Drink alcohol or take medication intended to make you sleep -Drive a car or operate any hazardous machinery EMENT SPECIALIST * Attachments The following attachments cannot be sent through Care Everywhere. * Cardiac Catheterization Discharge Instructions (Algerian) documented in this encounter Medications at Time [...] capsule (400 Units total) by mouth daily. metoprolol succinate ER (TOPROL-XL) 25 MG 24 hr tabletIndication s:SVT (supraventricula r tachycardia) (CMS/HCC HHS/HCC) Take 1 tablet (25 mg total) by mouth 2 (two) times daily. 05/16/2023 4 vitamin ( PLUS) 27-1 MG tablet Take 1 tablet by mouth daily. 4 sacubitril-valsa rtan (ENTRESTO) 24-26 MG tablet Take 1 tablet by mouth 2 (two) times daily. 60 tablet 6 05/04/2023 4 zolpidem (AMBIEN) 5 MG tablet Take 1 tablet (5 mg total) by mouth nightly as needed for Sleep. documented as of this encounter OR Notes * Brief Op Note - Judah Youssef MD - 05/21/2023 3:04 PM CST Kendy Salcido 05/21/2023 Procedure: Left Heart Catheterization R subclavian angiography Pre-Op Diagnosis: Cardiomyopathy. Post-Op Diagnosis: CAD, multivessel. Findings: See Merge report. R subclavian stenosis R femoral approach LVEDP 18 mmHg Left main normal LAD 80% proximal stenosis, D1 90% stenosis OM1 70 and 80% stenosis RCA calcified 70 and 80% mid stenosis Specimen(s) Removed: None Anesthesia: Procedural Surgeon: JUDAH YOUSSEF MD Estimated Blood Loss: Minimal Plan: CABG Continue medical therapy. She will undergo elective CABG. JUDAH YOUSSEF MD Date: 05/21/2023 Time:3:04 PM EMENT SPECIALIST EMENT SPECIALIST * Post-Sedation Assessment - Judah Youssef MD - 05/21/2023 3:03 PM PLACEMENT SPECIALIST Post-Sedation Assessment Vitals Vital signs stable at post-procedure: Yes Post-Sedation Exam: Post-Sedation Airway: Airway Patent Heart: Regular Rate/Rhythm Lungs: Lungs Clear to Ascultation Pain Score: 0/10 Pain Scale Used: Number Scale Hydration: Tolerating PO Fluids and Continue IV Fluids Mental Status AVPU: A: Alert Sedation Complications: none Adverse Events: none Signed by: JUDAH YOUSSEF MD EMENT SPECIALIST * Pre-Sedation Assessment - Judah Youssef MD - 05/21/2023 12:30 PM PLACEMENT SPECIALIST Sedation Pre-Evaluation Reviewed the following in the patient's chart: Patient summary Anesthesia history Medications Labs Images/Studies Patient has no history sedation complication Past sedation history was obtained from patient. Written consent was given by the patient for today's procedure. Discussed the following risks for today's procedure: allergic reaction, nausea and vomiting. Pre-Sedation Assessment The last time the patient had anything to eat or drink was 8 hours. Patient has an ASA score of: 2.The plan is to use moderate (conscious sedation) sedation for today's procedure. Physical Exam: Airway Status: Mallampati: I Neck ROM: normal Cardiovascular: normal Rhythm: regular Rate: normal Pulmonary: normal Breath sounds clear to auscultation EMENT SPECIALIST documented in this encounter Plan of Treatment Upcoming Encounters Date Type Department Care Team (Late st Contact Info) Description 02/12/2025 11:30 AM CDT Office Visit [facility] eld [address] [place] [id number] Jun Oscar, REGISTERED NURSE RENAL [address] [place], [place] [id number] documented as of this encounter Procedures Procedure Name Priority Date/Time Associated Diagnosis Comments USV CAROTID DUPLEX AMULIK Today 05/21/2023 4:29 PM PLACEMENT SPECIALIST Preop examination Bruit USV VEIN MAPPING LOW MAULIK Today 05/21/2023 4:29 PM PLACEMENT SPECIALIST Preop examination Coronary artery disease involving grand ronde tribes coronary artery of grand ronde tribes heart, unspecified whether angina present LIPID PANEL Routine 05/21/2023 4:28 PM PLACEMENT SPECIALIST Coronary artery disease involving grand ronde tribes coronary artery of grand ronde tribes heart, unspecified whether angina present XA LHC POSS Routine 05/21/2023 1:30 PM PLACEMENT SPECIALIST Cardiomyopathy, unspecified type (CMS/HCC HHS/HCC) documented in this encounter Results * USV CAROTID DUPLEX MAULIK (05/21/2023 4:29 PM PLACEMENT SPECIALIST) Anatomical Region Laterality Modality Neck Ultrasound 05/21/2023 5:09 PM PLACEMENT SPECIALIST Narrative 05/22/2023 2:18 PM PLACEMENT SPECIALIST ?SJS ?Vascular Report Pat.Name: ??KENDY SALCIDO ? Pat.ID: ?[id number] ? St.Date: ?? 05/21/2023 ? Refer.MD: ??AMADOR DILLON ? Exam Time: 5:09:00 PM ? Study Type:PVI CAROTID SCAN - BILATERAL ??Age: ??1945,77Y ? Sex: ? F ? Sonogrphr: Boo Kay RVT, RDCS ??Pat. Stat.:Inpatient ? CPT - 4: ?09180 Carotid Duplex ?? Reason for Study:Pre-op evaluation Race: ?W ? ++++++++++++++++++++++++++++++++++++ SUMMARY: ++++++++++++++++++++++++++++++++++++ The present study is suggestive of a 0-39% bilateral ICA stenosis by doppler criteria. Normal antegrade flow observed in the vertebral arteries. ++++++++++++++++++++++++++++++++++++ FINDINGS: ++++++++++++++++++++++++++++++++++++ Rt Innom: The innominate artery is patent. Rt Subcl: The proximal subclavian artery is patent. Rt ICA: ?? 0-39% stenosis with plaque noted in the internal carotid ?artery. Mild heterogeneous plaque noted. Rt ECA: ?? Patent with antegrade flow noted in the external carotid ?artery. Rt Vert: ??Normal antegrade vertebral flow. Lt Subcl: The proximal subclavian artery is patent. Lt ICA: ?? 0-39% stenosis with plaque noted in the internal carotid ?artery. Mild heterogeneous plaque noted. Lt ECA: ?? Patent with antegrade flow noted in the external carotid ?artery. Lt Vert: ??Normal antegrade vertebral flow. ++++++++++++++++++++++++++++++++++++ MEASUREMENTS: ++++++++++++++++++++++++++++++++++++ ?DOPPLER Right Prox CCA ?? Prox CCA PSV ?94.4 cm/s ?Prox CCA EDV ?17.4 cm/s Right Innominate ?? Innominate PSV ??55.5 cm/s ? Right Mid CCA ?? Mid CCA PSV ? 90.1 cm/s ?Mid CCA EDV ? 19.9 cm/s Right Dist CCA ?? Dist CCA PSV ?70.8 cm/s ?Dist CCA EDV ?19.9 cm/s Right Prox ICA ?? Prox ICA PSV ?68.3 cm/s ?Prox ICA EDV ?19.9 cm/s Right Mid ICA ?? Mid ICA PSV ? 78.9 cm/s ?Mid ICA EDV ? 25.5 cm/s Right Dist ICA ?? Dist ICA PSV ?70.8 cm/s ?Dist ICA EDV ?22.4 cm/s Right Prox ECA ?? Prox ECA PSV ?82.6 cm/s ?Prox ECA EDV ?10.6 cm/s Right Vertebral ?? Vertebral PSV ?? 60.9 cm/s ?Vertebral EDV ?? 17.4 cm/s Right Prox SCA ?? Prox SCA PSV ?76.8 cm/s ? Right ICA/CCA RATIO ?? ICA/CCA RATIO P ??1.11 ? Left Prox CCA ?? Prox CCA PSV ?65.9 cm/s ?Prox CCA EDV ?14.9 cm/s Left Mid CCA ?? Mid CCA PSV ? 79.5 cm/s ?Mid CCA EDV ? 17.4 cm/s Left Dist CCA ?? Dist CCA PSV ?65.9 cm/s ?Dist CCA EDV ?14.9 cm/s Left Prox ICA ?? Prox ICA PSV ?90.7 cm/s ?Prox ICA EDV ?28 cm/s Left Mid ICA ?? Mid ICA PSV ? 66.8 cm/s ?Mid ICA EDV ? 20.6 cm/s Left Dist ICA ?? Dist ICA PSV ?89.9 cm/s ?Dist ICA EDV ?22.6 cm/s Left Prox ECA ?? Prox ECA PSV ?75.2 cm/s ? Left Vertebral ?? Vertebral PSV ? 56 cm/s ?Vertebral EDV ?? 9.83 cm/s Left Prox SCA ?? Prox SCA PSV ?78.9 cm/s ? Left ICA/CCA RATIO ?? ICA/CCA RATIO P ??1.38 ? <Electronic Signature> 05/22/2023 02:18 PM Hudson Polk M.D. Procedure Note Hudson Polk MD - 05/22/2023 SJS Vascular Report Pat.Name: KENDY SALCIDO Pat.ID: [id number] St.Date: 05/21/2023 Refer.MD: AMADOR DILLON Exam Time: 5:09:00 PM Study Type:PVI CAROTID SCAN - BILATERAL Age: 8 1945,77Y Sex: F Sonogrphr: Boo Kay RVT, [facility] Pat. Stat.:Inpatient CPT - 4: 97984 Carotid Duplex Reason for Study:Pre-op evaluation Race: [...] Vert: Normal antegrade vertebral flow. ++++++++++++++++++++++++++++++++++++ MEASUREMENTS: ++++++++++++++++++++++++++++++++++++ DOPPLER Right Prox CCA Prox CCA PSV [...] Signature> 05/22/2023 02:18 PM Hudson Polk M.D. us Amador Dillon NP VASC Final Res ult * USV VEIN MAPPING LOW MAULIK (05/21/2023 4:29 PM PLACEMENT SPECIALIST) Anatomical Region Laterality Modality Extremity Ultrasound 05/21/2023 3:43 PM PLACEMENT SPECIALIST Narrative 05/21/2023 6:48 PM PLACEMENT SPECIALIST ?Vascular Report Pat.Name: ??KENDY SALCIDO ? Pat.ID: ?[id number] ? St.Date: ?? 05/21/2023 ? Refer.: ??AMADOR DILLON ? Exam Time: 3:43:00 PM ? Study Type:PVI VENOUS DUPLEX SCAN-LEGS BILAT Height: ?62 in ?Age: ??1945,77Y ? Sex: ? F ? Sonogrphr: Boo Kay RVT, RDCS ?? Pat. Stat.:Inpatient ? CPT - 4: ?33875 Venous Duplex LE/UE Reason for Study:Pre-op evaluation Race: ?W ? ++++++++++++++++++++++++++++++++++++ FINDINGS: ++++++++++++++++++++++++++++++++++++ Mapping Rt Low Ext: Right lower extremity visualized veins are patent ?and fully compressible with superficial vein diameters as ?listed. Unable to visualize the great saphenous ?from the saphenofemoral junction to the mid thigh vein. 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 No AV fistula is noted. Mapping Lt Low Ext: Left lower extremity veins are patent and fully ?compressible with superficial vein diameters as listed. ++++++++++++++++++++++++++++++++++++ MEASUREMENTS: ++++++++++++++++++++++++++++++++++++ ?LEVEINS Right Dist Thigh ?? Dist Thigh GSV ?? 3.87 mm ? Right GSV Prox Calf ?? GSV Prox Calf A ??4.48 mm ? Right GSV Mid Calf ?? GSV Mid Calf AP ??3.74 mm ? Right GSV Dist Calf ?? GSV Dist Calf A ??4.67 mm ? Right SSV Prox Calf ?? SSV Prox Calf A ??3.29 mm ? Right Knee ?? Knee GSV AP ? 4.12 mm ? Left SFJ ?? SFJ GSV AP ?5.87 mm ? Left Prox Thigh ?? Prox Thigh GSV ?? 3.88 mm ? Left Mid Thigh ?? Mid Thigh GSV A ??1.93 mm ? Left Dist Thigh ?? Dist Thigh GSV ?? 2.73 mm ? Left Knee ?? Knee GSV AP ? 3.61 mm ? Left GSV Prox Calf ?? GSV Prox Calf A ??3.85 mm ? Left GSV Mid Calf ?? GSV Mid Calf AP ?? 3.1 mm ? Left GSV Dist Calf ?? GSV Dist Calf ?2.9 mm ? Left SSV Mid Calf ?? SSV Mid Calf AP ??2.23 mm ? Left SSV Prox Calf ?? SSV Prox Calf A ??2.28 mm ? <Electronic Signature> 05/21/2023 06:48 PM Hudson Polk M.D. Procedure Note Hudson Polk MD - 05/21/2023 Vascular Report Pat.Name: KENDY SALCIDO Pat.ID: [id number] St.Date: 05/21/2023 Refer.MD: AMADOR DILLON Exam Time: 3:43:00 PM Study Type:PVI VENOUS DUPLEX SCAN-LEGS BILAT Height: 62 in Age: 8 1945,77Y Sex: F Sonogrphr: Boo Kay RVT, RDCS Pat. Stat.:Inpatient CPT - 4: 03230 Venous Duplex LE/UE Reason for Study:Pre-op evaluation [...] superficial vein diameters as listed. ++++++++++++++++++++++++++++++++++++ MEASUREMENTS: ++++++++++++++++++++++++++++++++++++ LEVEINS Right Dist Thigh Dist Thigh GSV 3.87 mm Right GSV Prox Calf GSV Prox Calf A 4.48 mm Right GSV Mid Calf GSV Mid Calf AP 3.74 mm Right GSV Dist Calf GSV Dist Calf A 4.67 mm Right SSV Prox Calf SSV Prox Calf A 3.29 mm Right Knee Knee GSV AP 4.12 mm Left SFJ SFJ GSV AP 5.87 mm Left Prox Thigh Prox Thigh [...] Signature> 05/21/2023 06:48 PM Hudson Polk M.D. Amador Dillon REGISTERED NURSE RENAL [facility] Final Res ult * LIPID PANEL (05/21/2023 4:28 PM PLACEMENT SPECIALIST) CHOLESTEROL 231 MG/DL 05/21/2023 5:[address] [facility] Comment:BORDERLINE HIGH: 200 -239 TRIGLYCERIDES 53 MG/DL 05/21/2023 5:[address] [facility] Comment:<150 NORMAL HDL 74 >49 MG/DL 05/21/2023 5:[address] [facility] LDL (CALCULATED) 146 MG/DL 05/21/19 5:[address] [facility] Comment:130-159 BORDERLINE H IGH VLDL CALCULATION 11 MG/DL 05/21/19 5:[address] [facility] Comment:REFERENCE RANGE NOT ESTABLISHED CHOL/HDL RATIO 3.1 05/21/2023 5:[address] [facility] Comment:REFERENCE RANGE NOT ESTABLISHED LDL/HDL 2.0 05/21/2023 5:[address] [facility] Comment:REFERENCE RANGE NOT ESTABLISHED NON HDL CHOLESTEROL 157 MG/DL 05/21/2023 5:[address] [facility] Comment:REFERENCE RANGE NOT ESTABLISHED 05/21/2023 4:28 PM PLACEMENT SPECIALIST Judah Youssef MD LABORATORY Final Result [facility] [address] [place] [address], [id number] * [facility] POSS (05/21/2023 1:30 PM PLACEMENT SPECIALIST) Anatomical Region Laterality Modality Cardiac Meat Cutting Teacher 05/21/2023 12:3 0 PM PLACEMENT SPECIALIST Judah Youssef MD REPAIRER ART OBJECTS Final Result documented in this encounter Visit Diagnoses Diagnosis Coronary artery disease involving grand ronde tribes coronary artery of grand ronde tribes heart, unspecified whether angina present- Primary Cardiomyopathy, unspecified type ([facility]) Preop examination Preoperative examination, unspecified Bruit Other symptoms involving cardiovascular system documented in this encounter Administered Medications Inactive Administered Medications - up to 3 most recent administrations Medication Order MAR Action Action Date Dose Rate Site acetaminophen (TYLENOL) tablet 650 mg 650 mg, Oral, Every 4 hours PRN, Mild pain (Scale 1 - 3), Starting on Sun05/21/23 at 1026, Until Sun05/21/23 at 2030, Maximum dose of acetaminophen is 4000 mg from all sources in 24 hours., Pre-Op nitroglycerin (NITROSTAT) SL tablet 0.4 mg 0.4 mg, Sublingual, Every 5 min PRN, Chest Pain, 3 doses, Starting on Sun05/21/23 at 1026, Until Sun05/21/23 at 2030, Notify provider if pain not relieved by one tablet. Hold for SBP less than 90 mmHg., Pre-Op ondansetron (ZOFRAN) injection 4 mg 4 mg, Intravenous, Every 8 hours PRN, Nausea, Vomiting, Starting on Sun05/21/23 at 1026, Until Sun05/21/23 at 2030, IV push over 2-5 minutes., Pre-Op documented in this encounter Active and Recently Administered Medications Times are shown in PLACEMENT SPECIALIST. Scheduled Medication Order 05/19/2023 05/20/2023 05/21/2023 normal saline 0.9 % flush 3-10 mL 3-10 mL, Intravenous, Every 8 hours, First dose on Sun05/21/23 at 1545, Until Discontinued, Post-Op 1545 (Canceled Entry - Provider: Automatic Discharge Provider - Comment: Automatically canceled at discontinue of medication order) PRN Medication Order 05/19/2023 05/20/2023 05/21/2023 acetaminophen (TYLENOL) tablet 325 mg 325 mg, Oral, Every 4 hours PRN, Mild pain (Scale 1 - 3), Starting on Sun05/21/23 at 1519, Until Sun05/21/23 at 2030, Maximum dose of acetaminophen is 4000 mg from all sources in 24 hours., Post-Op acetaminophen (TYLENOL) tablet 650 mg 650 mg, Oral, Every 4 hours PRN, Mild pain (Scale 1 - 3), Starting on Sun05/21/23 at 1026, Until Sun05/21/23 at 2030, Maximum dose of acetaminophen is 4000 mg from all sources in 24 hours., Pre-Op atropine injection 0.5 mg 0.5 mg, Intravenous, Once as needed, Other, for heart rate less than 50 bpm and / or SBP less than 90 mmHg, 1 dose, Starting on Sun05/21/23 at 1519, Until Sun05/21/23 at 2030, Post-Op euaaindib-gxskjred-dkwxsurtqhb (MYLANTA MAXIMUM STRENGTH) [id number] mg/30mL suspension 10 mL, Oral, Every 4 hours PRN, Indigestion, Heartburn, Starting on Sun05/21/23 at 1519, Until Sun05/21/23 at 2030, Shake Well, Post-Op nitroglycerin (NITROSTAT) SL tablet 0.4 mg 0.4 mg, Sublingual, Every 5 min PRN, Chest Pain, 3 doses, Starting on Sun05/21/23 at 1026, Until Sun05/21/23 at 2030, Notify provider if pain not relieved by one tablet. Hold for SBP less than 90 mmHg., Pre-Op nitroglycerin (NITROSTAT) SL tablet 0.4 mg 0.4 mg, Sublingual, Every 5 min PRN, Chest Pain, 3 doses, Starting on Sun05/21/23 at 1519, Until Sun05/21/23 at 2030, Notify MD if not relieved by one tablet. HOLD for SBP less than 90., Post-Op normal saline 0.9 % flush 3-10 mL 3-10 mL, Intravenous, As needed, Line care, Starting on Sun05/21/23 at 1519, Until Sun05/21/23 at 2030, Post-Op ondansetron (ZOFRAN) injection 4 mg 4 mg, Intravenous, Every 8 hours PRN, Nausea, Vomiting, Starting on Sun05/21/23 at 1026, Until Sun05/21/23 at 2030, IV push over 2-5 minutes., Pre-Op ondansetron (ZOFRAN) injection 4 mg 4 mg, Intravenous, Every 8 hours PRN, Nausea, Vomiting, Starting on Sun05/21/23 at 1519, Until Sun05/21/23 at 2030, IV push over 2-5 minutes., Post-Op senna-docusate (SENOKOT-S) 8.6-50 MG tablet 2 tablet 2 tablet, Oral, Nightly PRN, Constipation, Starting on Sun05/21/23 at 1519, Until Sun05/21/23 at 2030, Post-Op documented in this encounter Care Teams Shipping And Receiving Supervisor Relationship Specialty Start Date End Date Davin Estrada MD [address] [place] [address] [address] [place] [address] PCP - General FAMILY PRACTICE 04/12/23 documented as of this encounter
--- OUTSIDE RECORDS SUMMARY | 2024-04-27 15:47 | XMS_ITS | Encounter Summary ---
Author Organization [facility] Address [address] [place] [address]. [place], [place] [address] [place] [address] Care Team Providers Care Higher Education Administrator Name Role Phone Davin Estrada MD Primary Care Provider [phone] Encounter Details Date Type Department Care Team (Latest Contact Info) Description 04/18/2023 Travel Social History Tobacco Use Types Packs/Day Years Used Date Smoking Tobacco: Never Passive Smoke Exposure: Never Smokeless Tobacco: Never [facility] Utilities Answer Date Recorded In the past 12 months has [facility] electric, gas, oil, or water [employer] threatened to shut off services in your [...] slept in a fdc (including now)? No 04/12/2023 Comments Unknown Sex and Gender Information Value Date Recorded Sex Assigned at Not on file Legal Sex Female 3:10 PM PROFESSOR OF MEDICINE Gender Identity Not on file Sexual Orientation Not on file documented as of this encounter Functional Status * Are you deaf or do you have serious difficulty hearing Answer Date of Assessment Author Status No 04/12/2023 8:35 PM Trenton Taylor RN Active * Are you blind or [...] Assessment Author Status No 04/12/2023 8:35 PM PROFESSOR OF MEDICINE Blumenkemper, Trenton dorina T, RN Active * Because of a physical, mental, or emotional condition, do you have difficulty doing errands alone such as visiting a doctor's office or shopping? Answer Date of Assessment Author Status No 04/12/2023 8:35 PM PROFESSOR OF MEDICINE Trenton Ngo RN Active documented as of this encounter [...] Description 02/12/2025 11:30 AM CDT Office Visit [facility] el [address] [place] [address] Jun Oscar, ENVIRONMENTAL SERVICES SPECIALIST [address] [place] [address] documented as of this encounter Visit Diagnoses Not on filedocumented in this encounter Care Teams Higher Education Administrator Relationship Specialty Start Date End Date Davin Estrada MD [address] [place] [address] [address] [place] [address] PCP - General FAMILY PRACTICE 04/12/23 documented as of this encounter
--- OUTSIDE RECORDS SUMMARY | 2024-04-27 15:47 | XMS_ITS | Encounter Summary ---
Author Organization [facility] Address [facility] [place] [address] [place] [address] Care Team Providers Care Crowd Controller Name Role Phone Davin Estrada MD Primary Care Provider [phone] Encounter Details Date Type Department Care Team (Late st Contact Info) Description 05/16/2023 Orders Only [facility] [address] [place] [address] Starr Stapleton RN Social History Tobacco Use Types Packs/Day Years Used Date Smoking Tobacco: Never Passive Smoke Exposure: Never Smokeless Tobacco: Never Alcohol Use Standard Drinks/Week Comments Yes 0 (1 standard drink = 0.6 oz pur e alcohol) occasional wine [facility] Utilities Answer Date Recorded In the past 12 months has [employer] gas, oil, or water [employer] threatened to shut off services in your [...] hard at all 04/27/2023 [facility] [place] of Occupat ional Health - Occupational [...] slept in a detention (including now)? No 04/27/2023 Comments Unknown Sex and Gender Information Value Date Recorded Sex Assigned at Not on file Legal Sex Female 3:10 PM TITLE MANAGER Gender Identity Not on file Sexual Orientation Not on file documented as of this encounter Functional Status * Are you deaf or do you have serious difficulty hearing Answer Date of Assessment Author Status No 04/27/2023 11:00 PM TITLE MANAGER Pia Chowdary, RN Active * Are you blind or [...] 02/12/2025 11:30 AM CDT [facility] [address] [place] [address] Jun Oscar, CUTTER GRINDER OPERATOR [address] [place] [address] documented as of this encounter Procedures Procedure Name Priority Date/Time Associated Diagnosis Comments BASIC METABOLIC PANEL Routine 05/15/2023 Cardiomyopathy, unspecified type ([facility] HHS/HCC) Pre-procedural laboratory examination LIPID PANEL Routine 05/15/2023 Cardiomyopathy, unspecified type (CMS/HCC HHS/HCC) Hyperlipidemia, unspecified hyperlipidemia type CBC W/DIFF AUTOMATED Routine 05/15/2023 Cardiomyopathy, unspecified type (CMS/HCC HHS/HCC) Pre-procedural laboratory examination documented in this encounter Results * (ABNORMAL) CBC W/DIFF AUTOMATED (05/15/2023) WBC 3.4(A) 3.8 - 10.8 RBC 3.91 3.8 - 5.1 HGB 12.7 11.7 - 15.5 HCT 37.6 35 - 45 MCV 96.2 80 - 100 MCH 32.5 27 - 33 MCHC 33.8 32 - 36 RDW 12 11 - 15 PLT 171 140 - 400 MPV 10.6 7.5 - 12.5 NEUTROPHILS % 60.9 LYMPHOCYTES % 25.1 MONOCYTES % 10.5 EOSINOPHILS % 2.6 BASOPHILS % 0.9 ABS. NEUTROPHILS 2,071 1,500 - 7,800 ABS. LYMPHOCYTES 853 850 - 3,900 ABS. MONOCYTES 357 200 - 950 ABS. BASOPHILS 31 0 - 200 05/15/2023 Result [facility] Judah House MD LABORATORY Final Result * BASIC METABOLIC PANEL (05/15/2023) Pathologist [facility] SODIUM S/P/B 139 135 - 146 POTASSIUM S/P/B 4.0 3.5 - 5.3 CO2 28 20 - 32 CHLORIDE S/P/B 103 98 - 110 GLUCOSE 81 65 - 99 mg/dL CALCIUM S/P/B 9.1 8.6 - 10.4 BUN 20 7 - 25 CREATININE S/P/B 0.79 0.6 - 1.0 05/15/2023 Result [facility] Judah House MD LABORATORY Final Result * LIPID PANEL (05/15/2023) CHOLESTEROL 244 HDL 67 TRIGLYCERIDES 99 NON HDL CHOLESTEROL 177 CHOL/HDL RATIO 3.6 LDL (CALCULATED) 156 05/15/2023 Result [facility] Judah House MD LABORATORY Final Result documented in this encounter Visit Diagnoses Diagnosis Cardiomyopathy, unspecified type ([facility]/HCC [facility]/HCC) Hyperlipidemia, unspecified hyperlipidemia type Pre-procedural laboratory examination documented in this encounter Care Teams Crowd Controller Relationship Specialty Start Date End Date Davin Estrada MD [address] [place] [address] [address] [place] [address] PCP - General FAMILY PRACTICE 04/12/23 documented as of this encounter
--- OUTSIDE RECORDS SUMMARY | 2024-04-27 15:47 | XMS_ITS | Encounter Summary ---
Author Organization [facility] Address [facility] [facility] [place] [address] [place] [address] Care Team Providers Care Early Childhood Specialist Name Role Phone Davin Estrada MD Primary Care Provider [phone] Lee Villaseñor MD Unavailable Encounter Details Date Type Department Care Team (Late st Contact Info) Description 05/26/2023 MyChart Message Enc [facility] [address] [place] [address] Darell Garcia MD [address] [address] Metoprolol er succinate Social History Tobacco Use Types Packs/Day Years Used Date Smoking Tobacco: Never Passive Smoke Exposure: Never Smokeless Tobacco: Never Alcohol Use Standard Drinks/Week Comments Yes 0 (1 standard drink = 0.6 oz pur e alcohol) occasional wine C Utilities Answer Date Recorded In the past 12 months has e electric, gas, oil, or water [employer] threatened to shut off services in your [...] and heating? Not hard at all 04/27/2023 [facility] [place] of Occupat ional Health - Occupational Stress [...] on file Legal Sex Female 3:10 PM PLANOGRAMMER Gender Identity Not on file Sexual Orientation [...] Notes * Shannon Baltazar RN - 05/29/2023 8:26 AM CSTAddended by: SHANNON BALTAZAR on: 05/29/2023 08:26 AM Modules accepted: Orders OGRAMMER * Shannon Baltazar RN - 05/28/2023 8:23 AM CSTFrom: Cele Salcido To: Dr Darell Garcia Sent: 05/26/2023 11:33 AM PLANOGRAMMER Subject: Metoprolol er succinate I have only enough subject pills through . Zeeojnatan claim I cannot get any more without a new prescription.. Can you send to [facility]. I have been taking two per day. I will be on 5th floor Sunday at [address] Villaseñor. OGRAMMER documented in this encounter Plan of Treatment Upcoming Encounters Date Type Department Care Team ([facility] st Contact Info) Description 02/12/2025 11:30 AM CDT Office Visit [facility] eld [address] [place] [address] Jun Oscar, TELEPHONER [address] [place] [address] documented as of this encounter Visit Diagnoses Diagnosis SVT (supraventricular tachycardia) ([facility]/HCC [facility]) Other specified cardiac dysrhythmias documented in this encounter Care Teams Early Childhood Specialist Relationship Specialty Start Date End Date Davin Estrada MD [address] [address] [address] [place] [address] PCP - General FAMILY PRACTICE 04/12/23 Lee Villaseñor MD [address] [place] [address] Consulting Physician INTERNAL MEDICINE 05/28/23 documented as of this encounter
--- OUTSIDE RECORDS SUMMARY | 2024-04-27 15:47 | XMS_ITS | Encounter Summary ---
Author Organization [facility] Address [facility] [facility] [place] [address] [place] [address] Care Team Providers Care Forward Air Controller/Air Officer Name Role Phone Davin Estrada MD Primary Care Provider Lee Villaseñor MD Unavailable Darell Garcia MD Unavailable [phone] Jun Oscar SUPERVISOR BOAT OUTFITTING Unavailable [phone] Judah House MD Unavailable [phone] Encounter Details Date Type Department Care Team (Late st Contact Info) Description 05/09/2023 MyChart Message Enc [facility] el [address] [place] [phone] Darell Garcia MD [address] [facility] [address] [id number] dizziness Social History Tobacco Use Types Packs/Day Years Used Date Smoking Tobacco: Never Passive Smoke Exposure: Never Smokeless Tobacco: Never Alcohol Use Standard Drinks/Week Comments Yes 0 (1 standard drink = 0.6 oz pur e alcohol) occasional wine [facility] Utilities Answer Date Recorded In the past 12 months has [place], gas, oil, or water [employer] threatened to shut off services in your [...] and heating? Not hard at all 04/27/2023 [facility] of Occupat ional Health - [...] on file Legal Sex Female 3:10 PM CASE INVESTIGATOR Gender Identity Not on file Sexual Orientation [...] Visit [facility] eld [address] [place] [address] Jun Oscar, SUPERVISOR BOAT OUTFITTING [address] [place] [address] documented as of this encounter Visit Diagnoses Not on filedocumented in this encounter Care Teams Forward Air Controller/Air Officer Relationship Specialty Start Date End Date Davin Estrada MD [address] [address] [address] [place] [address] PCP - General FAMILY PRACTICE 04/12/23 Lee Villaseñor MD [address] [place] [address] Consulting Physician INTERNAL MEDICINE 05/28/23 Darell Garcia MD [address] [place] [address] [address] Consulting Physician CLINICAL CARDIAC ELECTROPHYSIOLOGY 02/08/24 Jun Oscar NP [address] [place], [place] [address] Nurse Practitioner NURSE PRACTITIONER 02/08/24 Judah House MD [address] [place] [phone] Consulting Physician INTERVENTIONAL CARDIOLOGY 02/12/24 documented as of this encounter
--- OUTSIDE RECORDS SUMMARY | 2024-04-27 15:47 | XMS_ITS | Encounter Summary ---
Author Organization [facility] Address [address] [place] [address]. [place] [address] [place] [address] Care Team Providers Care Bait Tier Name Role Phone Davin Estrada MD Primary Care Provider Reason for Visit * Reason Onset Date Comments Referral 04/18/2023 Returned Call 04/18/2023 Encounter Details Date Type Department Care Team (Late st Contact Info) Description 04/18/2023 Telephone [facility] [address] [place] [address] Darell Garcia MD [address] [place] [address] [address] Referral; Returned Call Social History Tobacco Use Types Packs/Day Years Used Date Smoking Tobacco: Never Passive Smoke Exposure: Never Smokeless Tobacco: Never [facility] Utilities Answer Date Recorded In the [...] No 04/12/2023 Housing Stability Vital Sign Answer Micahel e Recorded In the last 12 months, [...] on file Legal Sex Female 3:10 PM TOOL MACHINIST Gender Identity Not on file Sexual Orientation Not on file documented as of this encounter Functional Status * Are you deaf or do you have serious difficulty hearing Answer Date of Assessment Author Status No 04/12/2023 8:35 PM TOOL MACHINIST Trenton Ngo RN Active * Are you [...] Taylor RN Active documented in this encounter Progress Notes * Ana Abdul - 04/19/2023 8:28 AM CST Patient returning call to schedule consult for cardiomyopathy with Dr. House. Scheduled for 05/04/23 @ 9am, patient voiced understanding, requested appt reminder letter, letter sent. MACHINIST * Amna Bell - 04/18/2023 2:08 PM CST Called the patient and left a voicemail for a return call to schedule a consult for cardiomyopathy MACHINIST * Starr Stapleton RN - 04/18/2023 2:01 PM CST Please schedule consult appt for 05/04/23 for cardiomyopathy. MACHINIST * Shannon Baltazar RN - 04/18/2023 12:[address] Jama would like to refer patient for angiography to rule out ischemia and CAD. Message sent to Dr House's nurse. MACHINIST documented in this encounter Plan of Treatment Upcoming Encounters Date Type Department Care Team (Late st Contact Info) Description 02/12/2025 11:30 AM CDT Office Visit [facility] eld [address] [place] [address] Jun Oscar, GOLD FRAME ASSEMBLER [address] [place] [address] documented as of this encounter Visit Diagnoses Not on filedocumented in this encounter Care Teams Bait Tier Relationship Specialty Start Date End Date Davin Estrada MD [address] [place] [address] [address] [place] [address] PCP - General FAMILY PRACTICE 04/12/23 documented as of this encounter
--- OUTSIDE RECORDS SUMMARY | 2024-04-27 15:47 | XMS_ITS | Encounter Summary ---
Author Organization [facility] Address [address] [place] [address]. [place], [place] [id number] [place] [id number] Care Team Providers Care Cpc Coder Name Role Phone Venice Estrada MD Primary Care Provider [phone] Reason for Referral * Imaging (Emergency) - New Request Specialty Diagnoses / Procedures Referred By Contac t Referred To Contact RADIOLOGY Procedures CT HEAD WO CON Sherman Bobby PA [address] [place] [address] Phone: tel: fax: Referral ID Status Reason Start Date Expiration Date V isits Requested Visits Authorized [id number] New Request 04/27/2023 04/27/2024 1 1 ER AND EDGE TRIMMER Reason for Visit * Reason Comments Hypertension * Auth/Cert (Routine) Specialty Diagnoses / Procedures Referred By Contac t Referred To Contact Diagnoses Hypertension Procedures N[place] [address] Phone: tel: [phone] fax: Referral ID Status Reason Start Date Expiration Date Visits Re quested Visits Authorized [id number] 1 1 Encounter Details Date Type Department Care Team (Late st Contact Info) Description 04/27/2023 3:35 PM CUTTER AND EDGE TRIMMER - 04/28/2023 11:41 AM CUTTER AND EDGE TRIMMER Emergency [facility] [place] [address] Wilton Barba MD [address] [address] [place] [address] [phone] (Work) [place] [address] [phone] (Work) Hypertension Discharge Disposition: Home or Self Care (Routine Discharge) Social History Tobacco Use Types Packs/Day Years Used Date Smoking Tobacco: Never Passive Smoke Exposure: Never Smokeless Tobacco: Never Tobacco Cessation:Counseling Given: Not Answered Alcohol Use Standard Drinks/Week Comments Yes 0 (1 standard drink = 0.6 oz pur e alcohol) occasional wine [employer] Answer Date Recorded In the past 12 months has e [employer], gas, oil, or water [employer] threatened to shut off services in your [...] and heating? Not hard at all 04/27/2023 [facility] - Occupational Stress [...] on file Legal Sex Female 3:10 PM CUTTER AND EDGE TRIMMER Gender Identity Not on file Sexual Orientation Not on file documented as of this encounter Last Filed Vital Signs Vital Sign Reading Time Taken Comments Blood Pressure 133/73 04/28/2023 9:22 AM CUTTER AND EDGE TRIMMER Pulse 82 04/28/2023 9:22 AM CUTTER AND EDGE TRIMMER Temperature 36.9 ??C (98.4 ??F) 04/28/2023 7:18 AM CS T Respiratory Rate 16 04/28/2023 7:18 AM CUTTER AND EDGE TRIMMER Oxygen Saturation 100% 04/28/2023 7:18 AM CUTTER AND EDGE TRIMMER Inhaled Oxygen Concentration - - Weight 62.6 kg (138 lb 0.1 oz) 04/28/2023 2:23 A M CUTTER AND EDGE TRIMMER Height 160 cm (5' 3 ) 04/27/2023 2:58 PM CUTTER AND EDGE TRIMMER Body Mass Index 24.45 04/27/2023 2:58 PM CUTTER AND EDGE TRIMMER documented in this encounter Functional Status * Question Answer Date of Assessment Author Status Do you have serious difficulty walking or climbing stairs? No 04/27/2023 11:00 PM Abi Hamilton RN Active * Question Answer Date of Assessment Author Status Do you have difficulty dressing or bathing? No 04/27/2023 11:00 PM Leydi Hamilton RN Active Because of a physical, mental, or emotional condition, do you have difficulty doing errands alone such as visiting a doctor's office or shopping? No 04/27/2023 11:00 PM Abi Hamilton RN Active * Are you deaf or do you [...] difficulty concentrating, remembering, or making decisions? No 04/27/2023 11:00 PM Pia Hamilton RN Active * Because of a physical, mental, or emotional condition, do you have serious difficulty concentrating, remembering, or making decisions? Answer Entry Date Author Status No 04/27/2023 11:00 PM C[employer]TER AND EDGE TRIMMER Pia Chowdary RN Active documented in this encounter Discharge Summaries * Raffaele Resendez MD - 04/28/2023 9:46 AM CST Images from the original note were not included. Hospitalist Discharge Summary Patient ID: Kendy Salcido. female. 1945. Admit date: 04/27/2023 3:35 PM Discharge date and time: 04/28/23 Admitting Physician: Bhavin Westbrook MD Attending Physician: Raffaele Resendez MD Primary Care Physician: VENICE ESTRADA MD Discharge Physician: RAFFAELE RESENDEZ MD Hospital Diagnosis: Hypertension Procedures: None Discharged Condition: Good Code Status: Full Code Indication for Admission: Chief Complaint Patient presents with Hypertension History of Present Illness: Kendy Salcido is a 77-year-old female with past medical history of hypertension, ovarian cancer, recent SVT, presented to the ER with dizziness and lightheadedness. Patient was admitted to [facility] on 04/12/2023 with SVT. She received 2 doses of adenosine and was cardioverted. EP evaluated patient and con tinued metoprolol. An echo was done. EF of 30 to 35% and grade 2 DD. She was started on Entresto 24/26 mg daily. She was continued on her metoprolol with instructions to cut this in half if blood pressure was lower than 100. She was scheduled for repeat echocardiogram and ablation in June. She duefor an angiogram next Sunday to rule out ischemic heart disease. On the morning of admission, patient woke up and blood pressure was 137/76. Throughout the day she felt dizzy and off-balance. She had to hold onto things feel to be able to ambulate to the bathroom.She had fevers, chills, numbness, tingling etc. and 1 episode of emesis but then felt better. She still was mildly lightheaded and dizzy so came to the emergency room. Blood pressure was initially 202/80. Cardiology was contacted after she recommended doubling her evening Entresto. Patient was given 2 tabs of Entresto in the ER. Per cardiology she can follow-up as an outpatient. However patient and family, especially her son who is an orthopedic surgeon, did not feel comfortable with that and re quested monitoring overnight. Currently patient is resting in bed. She still had some very mild lightheadedness. She deniedany chest pain, shortness of breath, numbness, tingling, further nausea, fevers, chills etc. She was able to ambulate independently in the ER without difficulty. Readmission/Mortality Score at discharge: Low 0-28, Medium 29-58, High >59 LACE+ Score *This score is based on incomplete data Readmission Score: 52* Male Patient: - Urgent Admission: 15 Discharge Institution: - Length of Stay: 2 Alternative Level of Care Status: 0 ED Visits in Previous 6 Months: 0 Elective Admission in Previous Year: 0 Comorbidity Score (by age & number of urgent admissions): 35 - This score is not calculated because of inadequate data Hospital Course: Hypertensive urgency BP up to 202/80 in ER but now improving Increased entresto to 1 tab BID per cardiology Continue metoprolol Telemetry BPs now controlled. Dizziness/lightheadedness resolved. Outpatient follow-up with cardiology Recent SVT Converted with adenosine, cardioversion at [facility] on 04/12/2023 Continue metoprolol Telemetry Plan for left heart cath next week Plan for echo/ablation in June Chronic Systolic and diastolic combined CHF No exacerbation No requirement for diuretics Weights up 3.6kg since admission. Monitor daily weights at home. Findings that require further workup: Monitor daily weights on dc. F/U for LHC next week. F/U echo/ablation in June. Consults: cardiology Significant Diagnostic Studies: Recent Results (from the past 24 hour(s)) CBC W/DIFF AUTOMATED Collection Time: 04/27/23 4:00 PM Result Value Ref Range WBC 3.7 (L) 4.5 - 11.0 x10'3/uL RBC 4.13 (L) 4.20 - 5.40 x10'6/uL HGB 13.1 12.0 - 16.0 G/DL HCT 40.8 38.0 - 48.0 % MCV 98.8 81.0 - 99.0 FL MCH 31.7 (H) 27.0 - 31.0 PG MCHC 32.1 32.0 - 36.0 G/DL RDW 13.2 11.5 - 14.5 % PLT 215 130 - 400 x10'3/uL MPV 10.0 9.3 - 12.2 FL DIFFERENTIAL TYPE AUTOMATED DIFFERENTIAL NEUTROPHILS 63.3 % LYMPHOCYTES 25.7 % MONOCYTES 8.0 % EOSINOPHILS 1.6 % BASOPHILS 1.1 % IMMATURE GRANS 0.3 % ABS. NEUTROPHILS TOTAL 2.36 1.80 - 7.70 x10'3/uL ABS. LYMPHOCYTES 0.96 (L) 1.00 - 4.80 x10'3/uL ABS. MONOCYTES 0.30 0.24 - 0.86 x10'3/uL ABS. EOSINOPHILS 0.06 0.04 - 0.36 x10'3/uL ABS. BASOPHILS 0.04 0.01 - 0.08 x10'3/uL ABS. IMMATURE GRANULOCYTES 0.01 0.00 - 0.49 x10'3/uL COMPREHENSIVE METABOLIC PANEL Collection Time: 04/27/23 4:00 PM Result Value Ref Range GLUCOSE 95 70 - 99 MG/DL BUN 16 7 - 18 MG/DL CREATININE S/P/B 0.88 0.55 - 1.02 MG/DL SODIUM S/P/B 137 136 - 145 MMOL/L POTASSIUM S/P/B 3.9 3.5 - 5.1 MMOL/L CHLORIDE S/P/B 107 100 - 108 MMOL/L CO2 28.4 21 - 32 MMOL/L CALCIUM S/P/B 9.1 8.5 - 10.1 MG/DL BILIRUBIN TOTAL S/P/B 0.4 0.2 - 1.2 MG/DL TOTAL PROTEIN S/P/B 7.3 6.4 - 8.2 G/DL ALBUMIN S/P/B 3.5 3.4 - 5.0 G/DL AST 28 15 - 37 U/L ALT 27 14 - 55 U/L ALKALINE PHOSPHATASE S/P/B 56 50 - 136 U/L ANION GAP 1.6 (L) 5 - 15 MMOL/L BUN CREATININE RATIO 18.1 6 - 26 A/G RATIO 0.9 (L) 1.0 - 2.0 RATIO GFR ESTIMATE 68 (L) >90 ML/MIN/1.73 M2 TROPONIN, QUANT Collection Time: 04/27/23 4:00 PM Result Value Ref Range TROPONIN I HIGH SENSITIVITY 9 <54 ng/L PRO-BRAIN NATRIURETIC PEPTIDE Collection Time: 04/27/23 4:00 PM Result Value Ref Range PRO-B TYPE NATRIURETIC PEPTIDE 1,378 (H) <450 PG/ML TROPONIN, QUANT Collection Time: 04/27/23 11:45 PM Result Value Ref Range TROPONIN I HIGH SENSITIVITY 13 <54 ng/L CBC W/DIFF AUTOMATED Collection Time: 04/28/23 6:59 AM Result Value Ref Range WBC 3.9 (L) 4.5 - 11.0 x10'3/uL RBC 4.16 (L) 4.20 - 5.40 x10'6/uL HGB 13.2 12.0 - 16.0 G/DL HCT 40.3 38.0 - 48.0 % MCV 96.9 81.0 - 99.0 FL MCH 31.7 (H) 27.0 - 31.0 PG MCHC 32.8 32.0 - 36.0 G/DL RDW 13.3 11.5 - 14.5 % PLT 212 130 - 400 x10'3/uL MPV 10.0 9.3 - 12.2 FL DIFFERENTIAL TYPE AUTOMATED DIFFERENTIAL NEUTROPHILS 60.6 % LYMPHOCYTES 25.6 % MONOCYTES 10.9 % EOSINOPHILS 1.6 % BASOPHILS 1.0 % IMMATURE GRANS 0.3 % ABS. NEUTROPHILS TOTAL 2.34 1.80 - 7.70 x10'3/uL ABS. LYMPHOCYTES 0.99 (L) 1.00 - 4.80 x10'3/uL ABS. MONOCYTES 0.42 0.24 - 0.86 x10'3/uL ABS. EOSINOPHILS 0.06 0.04 - 0.36 x10'3/uL ABS. BASOPHILS 0.04 0.01 - 0.08 x10'3/uL ABS. IMMATURE GRANULOCYTES 0.01 0.00 - 0.49 x10'3/uL BASIC METABOLIC PANEL Collection Time: 04/28/23 6:59 AM Result Value Ref Range GLUCOSE 93 70 - 99 MG/DL BUN 15 7 - 18 MG/DL CREATININE S/P/B 0.75 0.55 - 1.02 MG/DL SODIUM S/P/B 138 136 - 145 MMOL/L POTASSIUM S/P/B 3.4 (L) 3.5 - 5.1 MMOL/L CHLORIDE S/P/B 108 100 - 108 MMOL/L CO2 27.0 21 - 32 MMOL/L CALCIUM S/P/B 8.8 8.5 - 10.1 MG/DL ANION GAP 3.0 (L) 5 - 15 MMOL/L BUN CREATININE RATIO 19.9 6 - 26 GFR ESTIMATE 82 (L) >90 ML/MIN/1.73 M2 TROPONIN, QUANT Collection Time: 04/28/23 6:59 AM Result Value Ref Range TROPONIN I HIGH SENSITIVITY 10 <54 ng/L TSH W/REFLEX Collection Time: 04/28/23 6:59 AM Result Value Ref Range TSH 3.820 (H) 0.358 - 3.74 uIU/ML THYROXINE, FREE (FT4) Collection Time: 04/28/23 6:59 AM Result Value Ref Range FREE T4 0.92 0.76 - 1.46 NG/DL Radiology Reports : CXR 04/27/23 1. Mild COPD changes; no radiographic evidence of acute/active cardiopulmonary disease 2. Sequela of prior granulomatous exposure Results for orders placed or performed during the hospital encounter of 04/27/23 ECG 12 lead Narrative [place] Test Date: 2023-04-27 Pat Name: KENDY SALCIDO Department: 41 Room: [facility] Gender: Female [employer] Flour: [id number] : 1945 Requested By: SHERMAN BOBBY Order Number: [id number] Reading MD: Reymundo Tobar Measurements Intervals [place] Rate: 68 P: 64 [place]: 161 QRS: 50 QRSD: 94 T: 61 QT: 425 QTc: 454 Interpretive Statements SINUS RHYTHM POSSIBLE LEFT ATRIAL ENLARGEMENT [-0.1mV P-WAVE IN V1/V2] LEFT VENTRICULAR HYPERTROPHY AND ST-T CHANGE [VOLTAGE CRITERIA PLUS ST/T ABNORMALITY] Compared to ECG 04/12/2023 21:33:07 No significant changes ER AND EDGE TRIMMER Discharge Exam: Filed Vitals: 04/27/23 2312 04/28/23 0223 04/28/23 0718 04/28/23 0922 BP: (!) 183/75 (!) 161/78 135/81 133/73 Pulse: 60 67 77 82 Resp: 16 Temp: 97.7 ??F (36.5 ??C) 98.4 ??F (36.9 ??C) TempSrc: Oral SpO2: 100% 98% 100% Weight: 61.3 kg (135 lb 2.3 oz) 62.6 kg (138 lb 0.1 oz) Height: Physical Exam Vitals reviewed. Cardiovascular: Rate and Rhythm: Normal rate and regular rhythm. Heart sounds: Normal heart sounds. No murmur heard. Pulmonary: Effort: Pulmonary effort is normal. Breath sounds: Normal breath sounds. Abdominal: General: There is no distension. Palpations: Abdomen is soft. Tenderness: There is no abdominal tenderness. Musculoskeletal: General: No swelling. Skin: Findings: No rash. Neurological: Mental Status: She is alert. Discharge Medications: Medication List CHANGE how you take these medications Morning Afternoon Evening Bedtime As Needed Entresto 24-26 MG tablet Take 1 tablet by mouth 2 (two) times daily for 30 days. Last time this was given: 1 tablet on April 28, 2023 9:23 AM Signed by: Dr. Wilton Barba MD Generic drug: sacubitril-valsartan What changed: Another medication with the same name was removed. Continue taking this medication, and follow the directions you see here. CONTINUE taking these medications Morning Afternoon Evening Bedtime As Needed calcium carbonate 1250 (500 Ca) MG tablet Commonly known as: OS-JANE Take 1 tablet (1,250 mg total) by mouth daily. metoprolol succinate ER 25 MG 24 hr tablet Commonly known as: TOPROL-XL Take 1 tablet (25 mg total) by mouth daily. Last time this was given: 25 mg on April 28, 2023 9:23 AM Signed by: Dr. Darell Garcia MD vitamin C 1000 MG tablet Commonly known as: ASCORBIC ACID Take 1 tablet (1,000 mg total) by mouth daily. vitamin D3 125 mcg Tabs Commonly known as: cholecalciferol Take 1 tablet (125 mcg total) by mouth daily. vitamin E 180 MG (400 UNIT) capsule Take 1 capsule (400 Units total) by mouth daily. zolpidem 5 MG tablet Commonly known as: AMBIEN Take 1 tablet (5 mg total) by mouth nightly as needed for Sleep. Last time this was given: 5 mg on April 27, 2023 11:55 PM Disposition: Home with self care Time Spent on Discharge: Greater than 30 minutes Signed: RAFFAELE RESENDEZ MD ER AND EDGE TRIMMER documented in this encounter Medications at Time of Discharge vitamin C (ASCORBIC ACID) 500 MG tablet Take 2 tablets (1,000 mg total) by mouth daily. Vitamin D3 (CHOLECALCIFEROL) 50 mcg tablet Take 1 tablet (50 mcg total) by mouth daily. vitamin E 180 MG (400 UNIT) capsule Take 1 capsule (400 Units total) by mouth daily. calcium carbonate (OS-JANE) 1250 (500 Ca) MG tablet Take 1 tablet (1,250 mg total) by mouth daily. 05/04/2023 metoprolol succinate ER (TOPROL-XL) 25 MG 24 hr tabletIndications :SVT (supraventricular tachycardia) (CMS/HCC HHS/HCC) Take 1 tablet (25 mg total) by mouth daily. 30 tablet 3 04/18/2023 05/16/2023 sacubitril-valsar matthew (ENTRESTO) 24-26 MG tablet Take 1 tablet by mouth 2 (two) times daily for 30 days. 60 tablet 04/27/2023 05/04/2023 zolpidem (AMBIEN) 5 MG tablet Take 1 tablet (5 mg total) by mouth nightly as needed for Sleep. 02/12/2024 documented as of this encounter Progress Notes * Emma Peters RN - 04/28/2023 10:58 AM CST Problem: Reduced risk for falls/injury Goal: Reduced Risk for Falls/Injury Outcome: Adequate for Discharge Goal: Reduced Risk of Confusion (Acute vs Chronic) Outcome: Adequate for Discharge Goal: Reduced Risk of Symptomatic Depression Outcome: Adequate for Discharge Goal: Reduced Risk of Altered Elimination Outcome: Adequate for Discharge Goal: Reduced Risk of Dizziness/Vertigo/Balance Outcome: Adequate for Discharge Goal: Reduced Risk of Polypharmacy Outcome: Adequate for Discharge ER AND EDGE TRIMMER * Pia Chowdary RN - 04/27/2023 11:46 PM CST Problem: Reduced risk for falls/injury Goal: Reduced Risk for Falls/Injury Outcome: Progressing Goal: Reduced Risk of Confusion (Acute vs Chronic) Outcome: Progressing Goal: Reduced Risk of Symptomatic Depression Outcome: Progressing Goal: Reduced Risk of Altered Elimination Outcome: Progressing Goal: Reduced Risk of Dizziness/Vertigo/Balance Outcome: Progressing Goal: Reduced Risk of Polypharmacy Outcome: Progressing ER AND EDGE TRIMMER documented in this encounter H&P Notes * Bhavin Westbrook MD - 04/27/2023 10:13 PM CST ATTENDING: BHAVIN WESTBROOK MD PRIMARY CARE PROVIDER: VENICE ESTRADA MD CC: dizziness HPI: Patient seen and evaluated by this provider. History obtained via chart review, discussion with ER physician, patient, , and review of outside records from [facility]. Kendy Salcido is a 77-year-old female with past medical history of hypertension, ovarian cancer, recent SVT, presents to the ER with dizziness and lightheadedness. Patient admitted to [facility] on 04/12/2023 with SVT. She received 2 doses of adenosine and was cardioverted. EP evaluated patient and continue metoprolol. An echo was done. EF of 30 to 35% and grade 2 DD. She was started on Entresto 24/ mgdaily. She was continued on her metoprolol with instructions to cut this in half if blood pressure was lower than 100. She is scheduled for repeat echocardiogram and ablation. She due for an angiogram next Sunday to rule out ischemic heart disease. This morning patient woke up and blood pressure was 137/76. Throughout the day she felt dizzy and off-balance. She had to hold onto things feel to be able to ambulate to the bathroom. She had, fevers, chills, numbness, tingling etc. and 1 episode of emesis but then felt better. She still was mildlylightheaded and dizzy so came to the emergency room. Blood pressure was initially 202/80. Cardiology was contacted after she recommended doubling her evening Entresto. Patient was given 2 tabs of Entresto in the ER. Per cardiology she can follow-up as an outpatient. However patient and family, especially her son who is an orthopedic surgeon, did not feel comfortable with that and requested monitoring overnight. Currently patient is resting in bed. She still has some very mild lightheadedness. She denies any chest pain, shortness of breath, numbness, tingling, further nausea, fevers, chills etc. She was able to ambulate independently in the ER without difficulty. is at bedside. Allergy No Known Allergies Medication list (Not in a hospital admission) No current facility-administered medications on file prior to encounter. Current Outpatient Medications on File Prior to Encounter Medication Sig Dispense Refill metoprolol succinate ER (TOPROL-XL) 25 MG 24 hr tablet Take 1 tablet (25 mg total) by mouth daily. 30 tablet 3 sacubitril-valsartan (ENTRESTO) 24-26 MG tablet Take 1 tablet by mouth 2 (two) times daily. zolpidem (AMBIEN) 5 MG tablet Take 1 tablet (5 mg total) by mouth nightly as needed for Sleep. Past Medical History Past Medical History: Diagnosis Date Essential (primary) hypertension Ovarian cancer (HHS/HCC) (CMS/HCC) s/p chemo and resection Past Surgical History: Procedure Laterality Date TOTAL ABDOM HYSTERECTOMY Social History Social History Socioeconomic History Marital status: Tobacco Use Smoking status: Never Passive exposure: Never Smokeless tobacco: Never Social History Narrative No smoking. Drinks wine 0.5 cup daily. Social Determinants of Health Financial Resource Strain: Low Risk (04/12/2023) Overall Financial Resource Strain (CARDIA) Difficulty of Paying Living Expenses: Not hard at all Food Insecurity: No Food Insecurity (04/12/2023) Hunger Vital Sign Worried About Running Out of Food in the Last Year: Never true Ran Out of Food in the Last Year: Never true Transportation Needs: No Transportation Needs (04/12/2023) PRAPARE - Transportation Lack of Transportation (Medical): No Lack of Transportation (Non-Medical): No Intimate Partner Violence: Not At Risk (04/12/2023) Humiliation, Afraid, Rape, and Kick questionnaire Fear of Current or Ex-Partner: No Emotionally Abused: No Physically Abused: No Sexually Abused: No Housing Stability: Low Risk (04/12/2023) Housing Stability Vital Sign Unable to Pay for Housing in the Last Year: No Number of Places Lived in the Last Year: 1 Unstable Housing in the Last Year: No Family History Family History Problem Relation Name Age of Onset Alzheimer's disease Mother CABG Father ROS: A 10 point review of systems was taken and pertinent positives and negatives as per HPI. All othersnegative save as noted in HPI. PHYSICAL EXAM: No intake or output data in the 24 hours ending 04/27/23 2213 Patient Vitals for the past 24 hrs: BP Temp Temp src Pulse Resp SpO2 Height Weight 04/27/23 2030 (!) 169/86 -- -- 67 14 98 % -- -- 04/27/23 1730 (!) 191/104 -- -- 62 15 98 % -- -- 04/27/23 1458 (!) 202/80 97.5 ??F (36.4 ??C) Temporal 74 16 100 % 1.6 m (5' 3 ) 59 kg (130 lb) Intake/Output :[id number]@ Constitutional: Well developed, Well nourished, No acute distress, Non-toxic appearance. HENT: Normocephalic, Atraumatic, Bilateral external ears normal, Oropharynx moist, No oral exudates, Nose normal. Eyes: PERRL, EOMI, Conjunctiva normal, No discharge. Neck- Normal range of motion, No stridor. Respiratory: Bilaterally clear to auscultation with no rales, rhonchi, or wheezes. Good aeration. No accessory muscle use. Cardiovascular: S1, S2 present, regular rate and rhythm. No murmurs, rubs, or gallops. No pedal edema. GI: Bowel sounds normal, Soft, No tenderness or guarding, No masses, No pulsatile masses. Musculoskeletal: Intact distal pulses, No edema, No tenderness, No cyanosis, No clubbing. Integument: Warm, Dry, No erythema, No rash. Neurologic: Alert & oriented x 3, Cranial nerves II-XII grossly intact. Normal motor function, Normal sensory function, No focal deficits noted. Psychiatric: Affect normal, Judgment normal, Mood normal Labs: Recent Labs Lab 04/27/23 1600 WBC 3.7* RBC 4.13* HGB 13.1 HCT 40.8 MCV 98.8 MCH 31.7* MCHC 32.1 PLT 215 RDW 13.2 MPV 10.0 PERNEU 63.3 PERLYM 25.7 PERMON 8.0 LYMC 0.96* MONOC 0.30 EOSC 0.06 BASOC 0.04 DTYPE AUTOMATED DIFFERENTIAL Recent Labs Lab 04/27/23 1600 NA 137 K 3.9 CL 107 CO2 28.4 AGAP 1.6* BUN 16 CR 0.88 BUNCREATININ 18.1 GLU 95 CA 9.1 TP 7.3 ALB 3.5 TBIL 0.4 ALKP 56 AST 28 ALT 27 No results for input(s): CHOL , TRI , HDL , LDL , HGBA1C , TSH in the last 168 hours. No results for input(s): APTT , INR , PTT in the last 168 hours. Recent Labs Lab 04/27/23 1600 TROP 9 No results for input(s): LACTICACID , PROCT in the last 168 hours. No results for input(s): PH , PCO2 , PO2 , [id number] , BICARBWB , BASEDEFICIT , BASEEXCESS in the last 168 hours. No results found for this or any previous visit. Imagining & Other Studies See official reports for full details Results for orders placed or performed during the hospital encounter of 04/27/23 [address] [facility] Test Date: 2023-04-27 Pat Name: KENDY SALCIDO Department: 41 Room: Gender: Female [employer] [place] Flour: [id number] : 1945 Requested By: SHERMAN BOBBY Order Number: [id number] Reading MD: Measurements Intervals [place] Rate: 68 P: 64 [place]: 161 QRS: 50 QRSD: 94 T: 61 QT: 425 QTc: 454 Interpretive Statements SINUS RHYTHM POSSIBLE LEFT ATRIAL ENLARGEMENT [-0.1mV P-WAVE IN V1/V2] LEFT VENTRICULAR HYPERTROPHY AND ST-T CHANGE [VOLTAGE CRITERIA PLUS ST/T ABNORMALITY] Compared to ECG 04/12/2023 21:33:07 No significant changes CXR 04/27/23 1. Mild COPD changes; no radiographic evidence of acute/active cardiopulmonary disease 2. Sequela of prior granulomatous exposure ~~~~ Echo 04/13/2023 The left ventricular size is normal. Mild [...] pressure. Mild to moderate central aortic regurgitation. Assessment & Plan Kendy [place] is a 77-year-old female with PMH of HTN, SVT , is being admitted for HTN. I am concerned patient will clinically deteriorate without hospitalization and intervention as described below. I will admit to provide appropriate level of care and treatment to patient as well as continued evalu ation. Hypertensive urgency BP up to 202/80 in ER but now improving Increase entresto to 1 tab BID per cardiology Continue metoprolol Patient/family did not feel comfortable going home-will monitor overnight Telemetry Outpatient follow-up with cardiology Recent SVT Converted with adenosine, cardioversion at [facility] on 04/12/2023 Continue metoprolol Telemetry Plan for left heart cath next week Plan for echo/ablation in June Systolic and diastolic combined CHF No exacerbation No requirement for diuretics Monitor weight/intake/output/labs - DVT prophylaxis: none- short stay anticipated - Diet : regular -IVF: none - CODE:full -POA: is point of contact The above plan of care was discussed with the patient in detail. An opportunity was provided for the patient/MPoA to ask questions regarding the hospital stay and plan of care. All questions were answered. The patient/MPoA understands and agrees. The patient was informed to ask the RN to contact meif any further questions or concerns. I have seen and examined the patient independently and anticipate patient will require a less than 2 midnight stay for observation. This note was dictated with the use of [employer] dictation software and was proofread to the best of my ability. If you have questions or find errors, please contact me via clinical communications. Thank you. BHAVIN WESTBROOK MD 04/27/2023 10:13 PM Update 04/27/23 4229 Pt asks for thyroid levels to be checked per request of her son. Will add ER AND EDGE TRIMMER ER AND EDGE TRIMMER documented in this encounter ED Notes * Braydon Goodson, SARAH - 04/27/2023 8:35 PM CST This nurse went in to patient room to discuss discharge, patient requested for this nurse to speak with her son, patient called son from her phone, this nurse spoke with patient's son about dischargeplan, son showed concern regarding discharge and concern for stroke, this nurse attempted to answerquestions regarding patient care, patient's son stated I'm not a sueding machine tender but I am an orthopedic surgeon and we admit things all the time that don't need admission. , this nurse asked patient's son if he would like to speak with the ER physician, patients son stated yes. ER MD made aware of patient request, ER MD and this nurse went into patient's room to discuss discharge plan, ER MD discussed at length the patient's plan for discharge, son raised concern regarding quadrupling blood pressure medication , ER MD discussed with patient and son and remedied the misunderstood discussion of her current blood pressure medication, patient's son continued to disagree with ER MD regarding plan, patient's son stated She has to be admitted. , ER MD stated that she would talk with the hospitalist and let him know. ER AND EDGE TRIMMER * Braydon Goodson RN - 04/27/2023 7:52 PM CST Patient is veryt concerned about blood pressure being elevated, patient states it needs to be under 150 , this nurse asked if that meant under 150 to discharge patient responded yes, patient has concerns for possible stroke due to elevated blood pressure, ER MD made aware of patient concerns ER AND EDGE TRIMMER * Wilton Barba MD - 04/27/2023 6:45 PM CST [place], [place] EMERGENCY DEPARTMENT ENCOUNTER Chief Complaint Chief Complaint Patient presents with Hypertension History of Present Illness Provider at Bedside Date/Time Event User Comments 04/27/23 1500 Provider at Bedside Assessing Patient SHERMAN BOBBY -- 04/27/23 1832 Provider at Bedside Assessing Patient WILTON BARBA -- Hypertension Associated symptoms: no abdominal pain, no chest pain, no dizziness, no fever, no headaches, no nausea and no shortness of breath The patient is a 77-year-old female with a history of HTN who presents to the emergency department with hypertension. She reports she was feeling lightheaded and off-balanced at 9am today. She took her blood pressure, which was 196/80. She reports she vomited and felt slightly better. Upon ED arrival, patient's blood pressure 191/104. Patient was admitted for SVT and had cardioversion at [facility] 2 weeks ago. She was originally on Losartan for hypertension. Following the admission, she was switched to metoprolol and entresto. She denies missing any doses. Blood pressure has been 130s / 70s throughout the week before today. She denies cp, sob, headache or dizziness. Medical History ALLERGIES: Review of patient's allergies indicates: No Known Allergies MEDICATIONS: Prior to Admission medications Medication Sig Start Date End Date Taking? Authorizing Provider sacubitril-valsartan (ENTRESTO) 24-26 MG tablet Take 1 tablet by mouth 2 (two) times daily for 30 days. 04/27/23 05/27/23 Yes Wilton Barba MD metoprolol succinate ER (TOPROL-XL) 25 MG 24 hr tablet Take 1 tablet (25 mg total) by mouth daily. 04/18/23 Darell Garcia MD zolpidem (AMBIEN) 5 MG tablet Take 1 tablet (5 mg total) by mouth nightly as needed for Sleep. Default History Genericprovider PAST MEDICAL HISTORY: Past Medical History: Diagnosis Date Essential (primary) hypertension Ovarian cancer (HHS/HCC) ([facility]/HCC) s/p chemo and resection PAST SURGICAL HISTORY: Past Surgical History: Procedure Laterality Date TOTAL ABDOM HYSTERECTOMY FAMILY HISTORY: Family History Problem Relation Name Age of Onset Alzheimer's disease Mother CABG Father SOCIAL HISTORY: Social History Tobacco Use Smoking status: Never Passive exposure: Never Smokeless tobacco: Never Review of Systems Review of Systems Constitutional: Negative for chills and fever. HENT: Negative for sore throat. Eyes: Negative for pain. Respiratory: Negative for cough and shortness of breath. Cardiovascular: Negative for chest pain. Gastrointestinal: Negative for abdominal pain, diarrhea and nausea. Endocrine: Negative for polyuria. Genitourinary: Negative for dysuria. Skin: Negative for rash. Neurological: Positive for light-headedness. Negative for dizziness and headaches. Psychiatric/Behavioral: Negative for behavioral problems. See HPI for further details. All systems negative except as marked. Physical Exam Filed Vitals: 04/27/23 1458 04/27/23 1730 04/27/23 2030 BP: (!) 202/80 (!) 191/104 (!) 169/86 Pulse: 74 62 67 Resp: 16 15 14 Temp: 97.5 ??F (36.4 ??C) TempSrc: Temporal SpO2: 100% 98% 98% Weight: 59 kg (130 lb) Height: 1.6 m (5' 3 ) Physical Exam Vitals and nursing note reviewed. Constitutional: Appearance: She is well-developed. HENT: Head: Normocephalic and atraumatic. Eyes: Conjunctiva/sclera: Conjunctivae normal. Cardiovascular: Rate and Rhythm: Normal rate and regular rhythm. Pulmonary: Effort: Pulmonary effort is normal. Breath sounds: Normal breath sounds. No stridor. Abdominal: Palpations: Abdomen is soft. Tenderness: There is no abdominal tenderness. Musculoskeletal: General: No deformity. Cervical back: Neck supple. Skin: General: Skin is warm and dry. Neurological: General: No focal deficit present. Mental Status: She is alert and oriented to person, place, and time. Diagnostic Studies / Procedures ELECTROCARDIOGRAMS: Results for orders placed or performed during the hospital encounter of 04/27/23 ECG 12 lead Narrative [facility] Test Date: 2023-04-27 Pat Name: KENDY SALCIDO Department: 41 Room: Gender: Female [employer]: [id number] : 1945 Requested By: SHERMAN BOBBY Order Number: [id number] Reading MD: Measurements Intervals [place] Rate: 68 P: 64 [place]: 161 QRS: 50 QRSD: 94 T: 61 QT: 425 QTc: 454 Interpretive Statements SINUS RHYTHM POSSIBLE LEFT ATRIAL ENLARGEMENT [-0.1mV P-WAVE IN V1/V2] LEFT VENTRICULAR HYPERTROPHY AND ST-T CHANGE [VOLTAGE CRITERIA PLUS ST/T ABNORMALITY] Compared to ECG 04/12/2023 21:33:07 No significant changes LABORATORY STUDIES: Results for orders placed or performed during the hospital encounter of 04/27/23 CBC W/DIFF AUTOMATED Result Value Ref Range WBC 3.7 (L) 4.5 - 11.0 x10'3/uL RBC 4.13 (L) 4.20 - 5.40 x10'6/uL HGB 13.1 12.0 - 16.0 G/DL HCT 40.8 38.0 - 48.0 % MCV 98.8 81.0 - 99.0 FL MCH 31.7 (H) 27.0 - 31.0 PG MCHC 32.1 32.0 - 36.0 G/DL RDW 13.2 11.5 - 14.5 % PLT 215 130 - 400 x10'3/uL MPV 10.0 9.3 - 12.2 FL DIFFERENTIAL TYPE AUTOMATED DIFFERENTIAL NEUTROPHILS 63.3 % LYMPHOCYTES 25.7 % MONOCYTES 8.0 % EOSINOPHILS 1.6 % BASOPHILS 1.1 % IMMATURE GRANS 0.3 % ABS. NEUTROPHILS TOTAL 2.36 1.80 - 7.70 x10'3/uL ABS. LYMPHOCYTES 0.96 (L) 1.00 - 4.80 x10'3/uL ABS. MONOCYTES 0.30 0.24 - 0.86 x10'3/uL ABS. EOSINOPHILS 0.06 0.04 - 0.36 x10'3/uL ABS. BASOPHILS 0.04 0.01 - 0.08 x10'3/uL ABS. IMMATURE GRANULOCYTES 0.01 0.00 - 0.49 x10'3/uL COMPREHENSIVE METABOLIC PANEL Result Value Ref Range GLUCOSE 95 70 - 99 MG/DL BUN 16 7 - 18 MG/DL CREATININE S/P/B 0.88 0.55 - 1.02 MG/DL SODIUM S/P/B 137 136 - 145 MMOL/L POTASSIUM S/P/B 3.9 3.5 - 5.1 MMOL/L CHLORIDE S/P/B 107 100 - 108 MMOL/L CO2 28.4 21 - 32 MMOL/L CALCIUM S/P/B 9.1 8.5 - 10.1 MG/DL BILIRUBIN TOTAL S/P/B 0.4 0.2 - 1.2 MG/DL TOTAL PROTEIN S/P/B 7.3 6.4 - 8.2 G/DL ALBUMIN S/P/B 3.5 3.4 - 5.0 G/DL AST 28 15 - 37 U/L ALT 27 14 - 55 U/L ALKALINE PHOSPHATASE S/P/B 56 50 - 136 U/L ANION GAP 1.6 (L) 5 - 15 MMOL/L BUN CREATININE RATIO 18.1 6 - 26 A/G RATIO 0.9 (L) 1.0 - 2.0 RATIO GFR ESTIMATE 68 (L) >90 ML/MIN/1.73 M2 TROPONIN, QUANT Result Value Ref Range TROPONIN I HIGH SENSITIVITY 9 <54 ng/L PRO-BRAIN NATRIURETIC PEPTIDE Result Value Ref Range PRO-B TYPE NATRIURETIC PEPTIDE 1,378 (H) <450 PG/ML IMAGING STUDIES XR CHEST PORTABLE Final Result by User, [id number] (04/27 4200) Examination: Chest x-ray 1 view Exam date/time: 04/27/2023 3:43 PM Reason For Exam: 1 77 female. Generalized weakness Comparison: None Technique: Portable AP upright view of the chest Findings: Normal cardiac size. Normally positioned trachea. Hilar and mediastinal contours are within normal limits. Pulmonary vasculature is normal. Left hilar small calcified lymph nodes and left midlung subcentimeter calcified granuloma indicative of old healed granulomatous disease. Relative upper lung lucency suggests mild COPD changes. Lungs and pleural spaces otherwise radiographically clear; no consolidation, effusion or pneumothorax. Unremarkable upper abdomen. Impression: 1. Mild COPD changes; no radiographic evidence of acute/active cardiopulmonary disease 2. Sequela of prior granulomatous exposure Ordered By: SHERMAN BOBBY Interpreted By: Deyanira Gomez MD, 04/27/2023 4:[address] HEAD WO CON Final Result by User, [email or web address] (04/27 4201) Exam: CT head without contrast Exam Date/Time: 04/27/2023 3:20 PM Indication: 77 female. Increasing lightheadedness. Dizziness, persistent/recurrent, cardiac or vascular cause suspected Comparison: None Technique: Computed tomography of the head performed without contrast from the vertex to the skull base. A dose lowering technique was used for this procedure, which may include, but is not limited to, dose reduction technique, automated exposure control, the use of iterative reconstruction, and ALARA (As Low As Reasonably Achievable) / Image Gently techniques. CT findings: Pyaw-ao-uzzynmil volume loss with commensurate prominence of the ventricles and sulci. No intracranial hemorrhage, extra-axial collection, mass effect or midline shift. There is mild periventricular and patchy subcortical white matter hypodensities are nonspecific and probably related to small vessel ischemic change. There is basal ganglia possible punctate chronic lacunar infarct. No convincing established chronic transcortical or vascular territorial infarct seen. Paredes-white differentiation is preserved. No other abnormal parenchymal density. Patent basilar cisterns. Visualized posterior fossa is grossly unremarkable. Visualized orbits and orbital structures are unremarkable. Left posterior inferior mastoid minimal fluid. Imaged paranasal sinuses and remaining mastoid air cells are clear.. No scalp soft tissue swelling or hematoma identified. Calvarium is unremarkable. =====IMPRESSION:===== 1. No convincing acute intracranial abnormalities within noncontrast CT. 2. Chronic senescent changes including mild/moderate atrophy and cerebral white matter mild chronic small vessel ischemic change. (CT has limited sensitivity for detection of acute ischemia). If acute ischemia is of clinical concern MRI can be considered. Ordered By: SHERMAN BOBBY Interpreted By: Deyanira Gomez MD, 04/27/2023 3:51 PM ED Course / Medical Decision Making Medical Decision Making Problems Addressed: Hypertension: chronic illness or injury Amount and/or Complexity of Data Reviewed External Data Reviewed: notes. Details: Reviewed cardiology office note from 04/18/23 Start medications, Toprol-XL 25 and Entresto. She is euvolemic and does not need diuretics. Labs: ordered. Decision-making details documented in ED Course. Radiology: ordered. Decision-making details documented in ED Course. ECG/medicine tests: ordered and independent interpretation performed. Decision- making details documented in ED Course. Risk Prescription drug management. ED Course as of 04/27/232112Apr 27, 2023 170 EKG shows normal sinus rhythm. Rate 68. LVH. [] 191 Chemistry unremarkable. Troponin normal. CT head shows no acute intracranial process. Chest x-ray shows no acute process. Patient states that she feels well. No chest pain or shortness of breath. Blood pressure remains elevated. Patient is on 2 different blood pressure medications. I called andspoke with Dr. Kirkland who recommends doubling the patient's Entresto until she can follow-up with hercardiologist. Discussed all results with patient. Discussed home care, return precautions and need for follow up.Patient verbalized understanding and agreement with plan. [] 2036 Pt given entresto and BP coming down appropriately [] 2052 Pt requested that I speak with her son who is an orthopedic surgeon. Her son is insistent thatpt be admitted. Despite my attempts to explain to him that she does not need admission as she is asymptomatic and BP is coming down he refuses for her to be discharged. [] [address] Westbrook who agrees pt does not meet admission criteria however given that family is refusing discharge she accepts admit to tele obs. [] ED Course User Index [] Wilton Barba MD Pulse Ox ordered and interpreted: Saturation: 98 (%) Oxygen Delivery: RA Interpretation: No acute hypoxia at this time. Rhythm strip ordered and interpreted: Normal sinus rhythm. Rate 68. No ectopy. Data reviewed: All current, pertinent and timely studies (laboratory, imaging, and procedures) wereordered and results reviewed by Wilton Barba MD unless otherwise noted. Triage notes and available nursing notes reviewed. Previous medical record reviewed when available. Repeat vital signs reviewed. Medications sacubitril-valsartan (ENTRESTO) 24-26 MG tablet 2 tablet (2 tablets Oral Given 04/27/231951) Clinical Impression Hypertension (Primary) Current Discharge Medication List Disposition: Admit Follow-Up: VENICE ESTRADA MD I, Madhuri Morataya, acting as a scribe, am personally taking down the notes in the presence of Wilton Barba MD. Take no action on this note until reviewed and authenticated by the physician. Wilton Barba MD 04/27/232038 Wilton Barba MD 04/27/232112 ER AND EDGE TRIMMER ER AND EDGE TRIMMER * JAKOB Adorno - 04/27/2023 3:05 PM CST [place], [place] EMERGENCY DEPARTMENT ENCOUNTER Medical Screening Examination 04/27/23 3:05 PM Chief Complaint : Hypertension HPI : Kendy Salcido is a 77-year-old female who presents for evaluation of increasing lightheadedness throughout the day. The symptoms do improve when lying down to. Recently in hospital for SVT Vital Signs: Filed Vitals: 04/27/23 1458 BP: (!) 202/80 Pulse: 74 Resp: 16 Temp: 97.5 ??F (36.4 ??C) TempSrc: Temporal SpO2: 100% Weight: 59 kg (130 lb) Height: 1.6 m (5' 3 ) Physical exam: A brief physical exam was completed to facilitate/expedite patient care. Haney findings include: No acute distress noted. Plan: Labs & Imaging was ordered to facilitate patient care. and EKG was ordered to faciliate patient care. JAKOB Adorno 04/27/23 1505 Cosigned by Wilton Barba MD at 04/27/2023 9:43 PM CUTTER AND EDGE TRIMMER ER AND EDGE TRIMMER ER AND EDGE TRIMMER * Daisy Aviles RN - 04/27/2023 2:59 PM CST Patient to ED with c/o htn. HX of SVT with admission at [facility]. States lightheadedness and dizziness that resolves upon lying supine and uneasy on her feet since this morning, worsening around 1200n. Offers she's scheduled for a heart cath 05/04/23 at [facility]. ER AND EDGE TRIMMER documented in this encounter Plan of Treatment Upcoming Encounters Date Type Department Care Team (Late st Contact Info) Description 02/12/2025 11:30 AM CDT [facility] [address] [place] [id number] Jun Oscar, ORTHOPEDIC RADIOLOGIC TECHNOLOGIST [address] [place], [place] [phone] documented as of this encounter Procedures Procedure Name Priority Date/Time Associated Diagnosis Comments TSH W/REFLEX Routine 04/28/2023 6:59 AM CUTTER AND EDGE TRIMMER BASIC METABOLIC PANEL Routine 04/28/2023 6:59 AM CUTTER AND EDGE TRIMMER CBC W/DIFF AUTOMATED Routine 04/28/2023 6:59 AM CUTTER AND EDGE TRIMMER THYROXINE, FREE (FT4) Routine 04/28/2023 6:59 AM CUTTER AND EDGE TRIMMER TROPONIN, QUANT TIMED 04/28/2023 6:59 AM CUTTER AND EDGE TRIMMER TROPONIN, QUANT STAT 04/27/2023 11:45 PM CUTTER AND EDGE TRIMMER ECG 12-LEAD Routine 04/27/2023 4:20 PM CUTTER AND EDGE TRIMMER XR CHEST PORTABLE STAT 04/27/2023 4:0 8 PM CUTTER AND EDGE TRIMMER PRO-BRAIN NATRIURETIC PEPTIDE STAT 04/27/2023 4:00 PM CUTTER AND EDGE TRIMMER COMPREHENSIVE METABOLIC PANEL STAT 04/27/2023 4:00 PM CUTTER AND EDGE TRIMMER CBC W/DIFF AUTOMATED STAT 04/27/2023 4:00 PM CUTTER AND EDGE TRIMMER TROPONIN, QUANT STAT 04/27/2023 4:00 PM CUTTER AND EDGE TRIMMER CT HEAD WO CON STAT 04/27/2023 3:31 PM CUTTER AND EDGE TRIMMER documented in this encounter Results * THYROXINE, FREE (FT4) (04/28/2023 6:59 AM CUTTER AND EDGE TRIMMER) FREE T4 0.92 0.76 - 1.46 NG/DL 04/28/2023 9:02 AM CUTTER AND EDGE TRIMMER [facility] 04/28/2023 6:59 AM CUTTER AND EDGE TRIMMER us Bhavin Westbrook MD LABORATORY Final Re sult [facility] [address] [place] [address], [place] [phone] * (ABNORMAL) TSH W/REFLEX (04/28/2023 6:59 AM CUTTER AND EDGE TRIMMER) Pathologist [facility] TSH 3.820(H) 0.358 - 3.74 uIU/ML 04/28/2023 8:24 AM CUTTER AND EDGE TRIMMER [facility] Comment: HIGH DOSES OF BIOTIN MAY INTERFERE WITH THIS TEST RESULT. CORRELATION TO CLINICAL HISTORY AND PRESENTATION RECOMMENDED. 04/28/2023 6:59 AM CUTTER AND EDGE TRIMMER Bhavin Westbrook MD LABORATORY Final Re sult Performing Organization Address [facility]/ZIP Co de Phone Number [facility] [address] [place] [id number], * TROPONIN, QUANT (04/28/2023 6:59 AM CUTTER AND EDGE TRIMMER) [facility] TROPONIN I HIGH SENSITIVITY 10 <54 ng/L 04/28/2023 8:24 AM CUTTER AND EDGE TRIMMER [facility] Comment: HIGH DOSES OF BIOTIN, TROPONIN-SPECIFIC AUTOANTIBODIES, AND ANTIBODY THERAPY CONTAINING HAMA MAY INTERFERE WITH THIS TEST RESULT. CORRELATION TO CLINICAL HISTORY AND PRESENTATION RECOMMENDED. 04/28/2023 6:59 AM CUTTER AND EDGE TRIMMER Bhavin Westbrook MD LABORATORY Final Re sult Performing Organization Address [facility]/ZIP Co de Phone Number [facility] [address] [place] [address], * (ABNORMAL) BASIC METABOLIC PANEL (04/28/2023 6:59 AM CUTTER AND EDGE TRIMMER) [facility] GLUCOSE 93 70 - 99 MG/DL 04/28/2023 8:24 AM CUTTER AND EDGE TRIMMER [facility] BUN 15 7 - 18 MG/DL 04/28/2023 8:24 AM C[facility]TER AND EDGE TRIMMER [facility] CREATININE S/P/B 0.75 0.55 - 1.02 MG/DL 04/28/2023 8:24 AM [facility] SODIUM S/P/B 138 136 - 145 MMOL/L 04/28/2023 8:24 AM [facility] POTASSIUM S/P/B 3.4(L) 3.5 - 5.1 MMOL/L 04/28/2023 8:24 AM [facility] CHLORIDE S/P/B 108 100 - 108 MMOL/L 04/28/2023 8:24 AM [facility] CO2 27.0 21 - 32 MMOL/L 04/28/2023 8:24 AM [facility] CALCIUM S/P/B 8.8 8.5 - 10.1 MG/DL 04/28/2023 8:24 AM [facility] ANION GAP 3.0(L) 5 - 15 MMOL/L 04/28/2023 8:24 AM [facility] BUN CREATININE RATIO 19.9 6 - 26 04/28/2023 8:24 AM [facility] GFR ESTIMATE 82(L) >90 ML/MIN/1.7 3 M2 04/28/2023 8:24 AM [facility] Comment: NOTE: eGFR is not calculated for patients <18 years of age. This is an estimated GFR calculation using the new CKD EPI creatinine equation without race and so does not require a correction factor for race. This estimated GFR should not be used for calculating drug doses. 04/28/2023 6:59 AM CUTTER AND EDGE TRIMMER us Bhavin Westbrook MD LABORATORY Final Re sult [facility] [address] [place] [address], [place] [phone] * (ABNORMAL) CBC W/DIFF AUTOMATED (04/28/2023 6:59 AM CUTTER AND EDGE TRIMMER) [facility] WBC 3.9(L) 4.5 - 11.0 x10'3/uL 04/28/2023 7:42 AM [facility] RBC 4.16(L) 4.20 - 5.40 x10'6/uL 04/28/2023 7:42 AM [facility] HGB 13.2 12.0 - 16.0 G/DL 04/28/2023 7:42 AM [facility] HCT 40.3 38.0 - 48.0 % 04/28/2023 7:42 AM [facility] MCV 96.9 81.0 - 99.0 FL 04/28/2023 7:42 AM [facility] MCH 31.7(H) 27.0 - 31.0 PG 04/28/2023 7:42 AM [facility] MCHC 32.8 32.0 - 36.0 G/DL 04/28/2023 7:42 AM [facility] RDW 13.3 11.5 - 14.5 % 04/28/2023 7:42 AM [facility] PLT 212 130 - 400 x10'3/uL 04/28/2023 7:42 AM [facility] MPV 10.0 9.3 - 12.2 FL 04/28/2023 7:42 AM [facility] DIFFERENTIAL TYPE AUTOMATED DIFFERENTIAL 04/28/2023 7:42 AM [facility] NEUTROPHILS % 60.6 % 04/28/2023 7:42 AM [facility] LYMPHOCYTES % 25.6 % 04/28/2023 7:42 AM [facility] MONOCYTES % 10.9 % 04/28/2023 7:42 AM [facility] EOSINOPHILS 1.6 % 04/28/2023 7:42 AM [facility] BASOPHILS 1.0 % 04/28/2023 7:42 AM [facility] IMMATURE GRANS % 0.3 % 04/28/19 7:42 AM [facility] ABS. NEUTROPHILS TOTAL 2.34 1.80 - 7.70 x10'3/uL 04/28/2023 7:42 AM [facility] ABS. LYMPHOCYTES 0.99(L) 1.00 - 4.80 x10'3/uL 04/28/2023 7:42 AM [facility] ABS. MONOCYTES 0.42 0.24 - 0.86 x10'3/uL 04/28/2023 7:42 AM [facility] ABS. EOSINOPHILS 0.06 0.04 - 0.36 x10'3/uL 04/28/2023 7:42 AM [facility] ABS. BASOPHILS 0.04 0.01 - 0.08 x10'3/uL 04/28/2023 7:42 AM [facility] ABS. IMMATURE GRANULOCYTES 0.01 0.00 - 0.49 x10'3/uL 04/28/2023 7:42 AM [facility] 04/28/2023 6:59 AM C[employer]TER AND EDGE TRIMMER us Bhavin Westbrook MD LABORATORY Final Re sult [facility] [address] [place] [address], * TROPONIN, QUANT (04/27/2023 11:45 PM CUTTER AND EDGE TRIMMER) TROPONIN I HIGH SENSITIVITY 13 <54 ng/L 04/28/2023 12:38 AM C[facility]TER AND EDGE TRIMMER [facility] Comment: HIGH DOSES OF BIOTIN, TROPONIN-SPECIFIC AUTOANTIBODIES, AND ANTIBODY THERAPY CONTAINING HAMA MAY INTERFERE WITH THIS TEST RESULT. CORRELATION TO CLINICAL HISTORY AND PRESENTATION RECOMMENDED. 04/27/2023 11:4 5 PM CUTTER AND EDGE TRIMMER Bhavin Westbrook MD LABORATORY Final Re sult [facility] [address] [place] [address], * ECG 12 lead (04/27/2023 4:20 PM CUTTER AND EDGE TRIMMER) 04/27/2023 4:20 PM C[facility]TER AND EDGE TRIMMER Narrative [facility] - 04/28/2023 7:59 AM CUTTER AND EDGE TRIMMER ?[facility] ? [address] [facility] ? Test Date: ?2023-04-27 Pat Name: ? KENDY SALCIDO ? Department: ?? 41 ? Room: ? B460 Gender: ? Female ? [place] [employer]: ?? [id number] : ?1945 ? Requested By: SHERMAN Huff Number: [id number] ? Reading MD: ?? Reymundo Tobar ? Measurements Intervals ?[place] ? Rate: ? 68 ? P: ?64 [place]: ? 161 ?QRS: ?50 QRSD: ? 94 ? T: ?61 QT: ? 425 ? QTc: ?454 ? Interpretive Statements SINUS RHYTHM POSSIBLE LEFT ATRIAL ENLARGEMENT ??[-0.1mV P-WAVE IN V1/V2] LEFT VENTRICULAR HYPERTROPHY AND ST-T CHANGE ??[VOLTAGE CRITERIA PLUS ST/T ABNORMALITY] Compared to ECG 04/12/2023 21:33:07 No significant changes ER AND EDGE TRIMMER Procedure Note Reymundo Tobar MD - 04/28/[address] [facility] Test Date: 2023-04-27 Pat Name: KENDY SALCIDO Department: 41 Room: B460 Gender: Female [employer]: [id number] : 1945 Requested By: SHERMAN BOBBY Order Number: [id number] Reading MD: Reymundo Tobar Measurements Intervals [place] Rate: 68 P: 64 [place]: 161 QRS: 50 QRSD: 94 T: 61 QT: 425 QTc: 454 Interpretive Statements SINUS RHYTHM POSSIBLE LEFT ATRIAL ENLARGEMENT [-0.1mV P-WAVE IN V1/V2] LEFT VENTRICULAR HYPERTROPHY AND ST-T CHANGE [VOLTAGE CRITERIA PLUSST/T ABNORMALITY] Compared to ECG 04/12/2023 21:33:07 No significant changes ER AND EDGE TRIMMER Sherman ROBERT ECG ORDERABLES Final Resul t [facility] ([facility] RAD * XR CHEST PORTABLE (04/27/2023 4:08 PM CUTTER AND EDGE TRIMMER) Anatomical Region Laterality Modality Chest Radiographic Fabiola ging 04/27/2023 4:07 PM CUTTER AND EDGE TRIMMER Impressions 04/27/2023 4:08 PM CUTTER AND EDGE TRIMMER Impression: 1. Mild COPD changes; no radiographic evidence of acute/active cardiopulmonary disease 2. Sequela of prior granulomatous exposure Ordered By: SHERMAN BOBBY Interpreted By: Deyanira Gomez MD, 04/27/2023 4:07 PM Narrative 04/27/2023 4:08 PM CUTTER AND EDGE TRIMMER Examination: Chest x-ray 1 view Exam date/time: 04/27/2023 3:43 PM Reason For Exam: ??1 77 female. Generalized weakness Comparison: None Technique: Portable AP upright ??view of the chest Findings: Normal cardiac size. Normally positioned trachea. Hilar and mediastinal contours are within normal limits. Pulmonary vasculature is normal. Left hilar small calcified lymph nodes and left midlung subcentimeter calcified granuloma indicative of old healed granulomatous disease. Relative upper lung lucency suggests mild COPD changes. Lungs and pleural spaces otherwise radiographically clear; no consolidation, effusion or pneumothorax. Unremarkable upper abdomen. Procedure Note Deyanira Gomez MD - 04/27/2023 Examination: Chest x-ray 1 view Exam date/time: 04/27/2023 3:43 PM Reason For Exam: 1 77 female. Generalized weakness Comparison: None Technique: Portable AP upright view of the chest Findings: Normal cardiac size. Normally positioned trachea. Hilar andmediastinal contours are within normal limits. Pulmonary vasculature isnormal. Left hilar small calcified lymph nodes and left midlung subcentimetercalcified granuloma indicative of old healed granulomatous disease. Relative upper lung lucency suggests mild COPD changes. Lungs and pleuralspaces otherwise radiographically clear; no consolidation, effusion orpneumothorax. Unremarkable upper abdomen. Impression: 1. Mild COPD changes; no radiographic evidence of acute/activecardiopulmonary disease 2. Sequela of prior granulomatous exposure Ordered By: SHERMAN BOBBY Interpreted By: Deyanira Gomez MD, 04/27/2023 4:07 PM Sherman Bobby [place] GENERAL IMAGING Final Resul t * (ABNORMAL) PRO-BRAIN NATRIURETIC PEPTIDE (04/27/2023 4:00 PM CUTTER AND EDGE TRIMMER) PRO-B TYPE NATRIURETIC PEPTIDE 1,378(H) <450 PG/ML 04/27/2023 4:52 PM CUTTER AND EDGE TRIMMER [facility] Comment: CUT POINTS ESTABLISHED BY [employer] ON NT PROBNP (ICON) STUDY (2006). AGE INDEPENDENT: <300 PG/ML HAS A 99% NEGATIVE PREDICTIVE VALUE FOR EXCLUDING ACUTE CHF <50 YEARS: >450 PG/ML IS CONSISTENT WITH ACUTE CHF 50-75 YEARS: >900 PG/ML IS CONSISTENT WITH ACUTE CHF >75 YEARS: >1800 PG/ML IS CONSISTENT WITH ACUTE CHF IN PATIENTS WITH RENAL INSUFFICIENCY (GFR <60), >1200 PG/ML YIELDS A DIAGNOSTIC SENSITIVITY AND SPECIFICITY OF 89% AND 72% FOR ACUTE CHF. 04/27/2023 4:00 PM CUTTER AND EDGE TRIMMER Sherman ROBERT LABORATORY Final Resul t Performing Organization Address City/State/[facility] Co de Phone Number [facility] [address] [place] [address], [place] [phone] * TROPONIN, QUANT (04/27/2023 4:00 PM CUTTER AND EDGE TRIMMER) TROPONIN I HIGH SENSITIVITY 9 <54 ng/L 04/27/2023 4:52 PM CUTTER AND EDGE TRIMMER [facility] Comment: HIGH DOSES OF BIOTIN, TROPONIN-SPECIFIC AUTOANTIBODIES, AND ANTIBODY THERAPY CONTAINING HAMA MAY INTERFERE WITH THIS TEST RESULT. CORRELATION TO CLINICAL HISTORY AND PRESENTATION RECOMMENDED. 04/27/2023 4:00 PM CUTTER AND EDGE TRIMMER Sherman ROBERT LABORATORY Final Resul t Performing Organization Address City/[facility] Co de Phone Number [facility] [address] [place] [address], [place] [phone] * (ABNORMAL) COMPREHENSIVE METABOLIC PANEL (04/27/2023 4:00 PM CUTTER AND EDGE TRIMMER) GLUCOSE 95 70 - 99 MG/DL 04/27/2023 4:52 PM CUTTER AND EDGE TRIMMER [facility] BUN 16 7 - 18 MG/DL 04/27/2023 4:52 PM CUTTER AND EDGE TRIMMER [facility] CREATININE S/P/B 0.88 0.55 - 1.02 MG/DL 04/27/2023 4:52 PM CUTTER AND EDGE TRIMMER [facility] SODIUM S/P/B 137 136 - 145 MMOL/L 04/27/2023 4:52 PM CUTTER AND EDGE TRIMMER [facility] POTASSIUM S/P/B 3.9 3.5 - 5.1 MMOL/L 04/27/2023 4:52 PM CUTTER AND EDGE TRIMMER [facility] Comment:SLIGHT HEMOLYSIS, RE SULT MAY BE AFFECTED. CHLORIDE S/P/B 107 100 - 108 MMOL/L 04/27/2023 4:52 PM [facility] CO2 28.4 21 - 32 MMOL/L 04/27/2023 4:52 PM [facility] CALCIUM S/P/B 9.1 8.5 - 10.1 MG/DL 04/27/2023 4:52 PM [facility] BILIRUBIN TOTAL S/P/B 0.4 0.2 - 1.2 MG/DL 04/27/2023 4:52 PM [facility] Comment: THIS ASSAY IS NOT RECOMMENDED FOR PATIENTS UNDERGOING TREATMENT WITH ELTROMBOPAG DUE TO THE POTENTIAL FOR FALSELY ELEVATED RESULTS. TOTAL PROTEIN S/P/B 7.3 6.4 - 8.2 G/DL 04/27/2023 4:52 PM [facility] ALBUMIN S/P/B 3.5 3.4 - 5.0 G/DL 04/27/2023 4:52 PM [facility] AST 28 15 - 37 U/L 04/27/2023 4:52 PM [facility] Comment:SLIGHT HEMOLYSIS, RE SULT MAY BE AFFECTED. ALT 27 14 - 55 U/L 04/27/2023 4:52 PM [facility] ALKALINE PHOSPHATASE S/P/B 56 50 - 136 U/L 04/27/2023 4:52 PM [facility] ANION GAP 1.6(L) 5 - 15 MMOL/L 04/27/2023 4:52 PM [facility] BUN CREATININE RATIO 18.1 6 - 26 04/27/2023 4:52 PM [facility] A/G RATIO 0.9(L) 1.0 - 2.0 RATIO 04/27/2023 4:52 PM [facility] GFR ESTIMATE 68(L) >90 ML/MIN/1.7 3 M2 04/27/2023 4:52 PM CUTTER AND EDGE TRIMMER [facility] Comment: NOTE: eGFR is not calculated for patients <18 years of age. This is an estimated GFR calculation using the new CKD EPI creatinine equation without race and so does not require a correction factor for race. This estimated GFR should not be used for calculating drug doses. 04/27/2023 4:00 PM CUTTER AND EDGE TRIMMER us Sherman ROBERT LABORATORY Final Resul t [facility] [address] [place] [address], * (ABNORMAL) CBC W/DIFF AUTOMATED (04/27/2023 4:00 PM CUTTER AND EDGE TRIMMER) WBC 3.7(L) 4.5 - 11.0 x10'3/uL 04/27/2023 4:18 PM CUTTER AND EDGE TRIMMER [facility] RBC 4.13(L) 4.20 - 5.40 x10'6/uL 04/27/2023 4:18 PM CUTTER AND EDGE TRIMMER [facility] HGB 13.1 12.0 - 16.0 G/DL 04/27/2023 4:18 PM [facility] HCT 40.8 38.0 - 48.0 % 04/27/2023 4:18 PM [facility] MCV 98.8 81.0 - 99.0 FL 04/27/2023 4:18 PM CUTTER AND EDGE TRIMMER [facility] MCH 31.7(H) 27.0 - 31.0 PG 04/27/2023 4:18 PM [facility] MCHC 32.1 32.0 - 36.0 G/DL 04/27/2023 4:18 PM [facility] RDW 13.2 11.5 - 14.5 % 04/27/2023 4:18 PM [facility] PLT 215 130 - 400 x10'3/uL 04/27/2023 4:18 PM [facility] MPV 10.0 9.3 - 12.2 FL 04/27/2023 4:18 PM [facility] DIFFERENTIAL TYPE AUTOMATED DIFFERENTIAL 04/27/2023 4:18 PM [facility] NEUTROPHILS % 63.3 % 04/27/2023 4:18 PM [facility] LYMPHOCYTES % 25.7 % 04/27/2023 4:18 PM [facility] MONOCYTES % 8.0 % 04/27/2023 4:18 PM [facility] EOSINOPHILS 1.6 % 04/27/2023 4:18 PM [facility] BASOPHILS 1.1 % 04/27/2023 4:18 PM [facility] IMMATURE GRANS % 0.3 % 04/27/19 4:18 PM [facility] ABS. NEUTROPHILS TOTAL 2.36 1.80 - 7.70 x10'3/uL 04/27/2023 4:18 PM [facility] ABS. LYMPHOCYTES 0.96(L) 1.00 - 4.80 x10'3/uL 04/27/2023 4:18 PM [facility] ABS. MONOCYTES 0.30 0.24 - 0.86 x10'3/uL 04/27/2023 4:18 PM [facility] ABS. EOSINOPHILS 0.06 0.04 - 0.36 x10'3/uL 04/27/2023 4:18 PM [facility] ABS. BASOPHILS 0.04 0.01 - 0.08 x10'3/uL 04/27/2023 4:18 PM C[employer]TER AND EDGE TRIMMER [facility] ABS. IMMATURE GRANULOCYTES 0.01 0.00 - 0.49 x10'3/uL 04/27/2023 4:18 PM C[employer] AND EDGE TRIMMER [facility] 04/27/2023 4:00 PM CUTTER AND EDGE TRIMMER Sherman Bobby [place] LABORATORY Final Resul t [facility] [address] [place] [address], [place] [phone] * CT HEAD WO CON (04/27/2023 3:31 PM CUTTER AND EDGE TRIMMER) Anatomical Region Laterality Modality Head Computed Tomogra phy 04/27/2023 3:51 PM CUTTER AND EDGE TRIMMER Impressions 04/27/2023 3:57 PM CUTTER AND EDGE TRIMMER =====IMPRESSION:===== 1. No convincing acute intracranial abnormalities within noncontrast CT. 2. Chronic senescent changes including mild/moderate atrophy and cerebral white matter mild chronic small vessel ischemic change. (CT has limited sensitivity for detection of acute ischemia). If acute ischemia is of clinical concern MRI can be considered. Ordered By: SHERMAN BOBBY Interpreted By: Deyanira Gomez MD, 04/27/2023 3:51 PM Narrative 04/27/2023 3:57 PM CUTTER AND EDGE TRIMMER Exam: ??CT head without contrast Exam Date/Time: 04/27/2023 3:20 PM Indication: 77 female. Increasing lightheadedness. Dizziness, persistent/recurrent, cardiac or vascular cause suspected ? Comparison: None Technique: Computed tomography of the head performed without contrast from the vertex to the skull base. A dose lowering technique was used for this procedure, which may include, but is not limited to, dose reduction technique, automated exposure control, the use of iterative reconstruction, and ALARA (As Low As Reasonably Achievable) / Image Gently techniques. CT findings: ?? Kqry-ys-ldmazblk volume loss with commensurate prominence of the ventricles and sulci. No intracranial hemorrhage, extra-axial collection, mass effect or midline shift. There is mild periventricular and patchy subcortical white matter hypodensities are nonspecific and probably related to small vessel ischemic change. There is basal ganglia possible punctate chronic lacunar infarct. No convincing established chronic transcortical or vascular territorial infarct seen. Paredes- white differentiation is preserved. No other abnormal parenchymal density. Patent basilar cisterns. Visualized posterior fossa is grossly unremarkable. Visualized orbits and orbital structures are unremarkable. Left posterior inferior mastoid minimal fluid. Imaged paranasal sinuses and remaining mastoid air cells are clear.. No scalp soft tissue swelling or hematoma identified. Calvarium is unremarkable. Procedure Note Deyanira Gomez MD - 04/27/2023 Exam: CT head without contrast Exam Date/Time: 04/27/2023 3:20 PM Indication: 77 female. Increasing lightheadedness. Dizziness,persistent/recurrent, cardiac or vascular cause suspected Comparison: None Technique: Computed tomography of the head performed without contrast fromthe vertex to the skull base. A dose lowering technique was used for thisprocedure, which may include, but is not limited to, dose reductiontechnique, automated exposure control, the use of iterativereconstruction, and ALARA (As Low As Reasonably Achievable) / Image Gentlytechniques. CT findings: Jpzc-ln-oytegmtw volume loss with commensurate prominence of theventricles and sulci. No intracranial hemorrhage, extra-axial collection,mass effect or midline shift. There is mild periventricular and patchysubcortical white matter hypodensities are nonspecific and probablyrelated to small vessel ischemic change. There is basal ganglia possiblepunctate chronic lacunar infarct. No convincing established chronictranscortical or vascular territorial infarct seen. Paredes- whitedifferentiation is preserved. No other abnormal parenchymal density. Patent basilar cisterns. Visualized posterior fossa is grosslyunremarkable. Visualized orbits and orbital structures are unremarkable. Left posteriorinferior mastoid minimal fluid. Imaged paranasal sinuses and remainingmastoid air cells are clear.. No scalp soft tissue swelling or hematoma identified. Calvarium isunremarkable. =====IMPRESSION:===== 1. No convincing acute intracranial abnormalities within noncontrast CT. 2. Chronic senescent changes including mild/moderate atrophy and cerebralwhite matter mild chronic small vessel ischemic change. (CT has limited sensitivity for detection of acute ischemia). If acuteischemia is of clinical concern MRI can be considered. Ordered By: SHERMAN BOBBY Interpreted By: Deyanira Gomez MD, 04/27/2023 3:[address] Final Resul t documented in this encounter Visit Diagnoses Diagnosis Hypertension- Primary Unspecified essential hypertension Hypertension Unspecified essential hypertension documented in this encounter Admitting Diagnoses Diagnosis Hypertension Unspecified essential hypertension documented in this encounter Administered Medications Inactive Administered Medications - up to 3 most recent administrations Medication Order MAR Action Action Date Dose Rate Site acetaminophen (TYLENOL) tablet 650 mg 650 mg, Oral, Every 4 hours PRN, Mild pain (Scale 1 - 3), Headaches, Fever, Discomfort, Starting on Sun04/27/23 at 2234, Until 04/28/23 at 1347, Maximum dose of acetaminophen is 4000 mg from all sources in 24 hours. docusate sodium (COLACE) capsule 100 mg 100 mg, Oral, 2 times daily PRN, Constipation, Starting on Sun04/27/23 at 2234, Until 04/28/23 at 1347 HYDROcodone-acetaminophen (NORCO) 5-325 MG tablet 1 tablet 1 tablet, Oral, Every 4 hours PRN, Moderate pain (Scale 4 - 7), Starting on Sun04/27/23 at 2234, Until 04/28/23 at 1347, Maximum dose of acetaminophen is 4000 mg from all sources in 24 hours. HYDROmorphone (DILAUDID) injection 0.2 mg 0.2 mg, Intravenous, Every 2 hours PRN, Severe pain (Scale 8 - 10), Starting on Sun04/27/23 at 2234, Until 04/28/23 at 1347, Administer slowly over at least 2-3 minutes. metoprolol succinate ER (TOPROL-XL) 24 hr tablet 25 mg 25 mg, Oral, Daily, First dose on 04/28/23 at 0900, Until Discontinued, May be split in half along the tablet score line; do not chew or crush. Given 04/28/2023 9:23 AM CUTTER AND EDGE TRIMMER 25 mg naLOXone (NARCAN) injection 0.4 mg 0.4 mg, Intravenous, As needed, Opioid reversal, Starting on Sun04/27/23 at 2234, Until 04/28/23 at 1347 ondansetron (ZOFRAN) injection 4 mg 4 mg, Intravenous, Every 6 hours PRN, Nausea, Vomiting, Starting on Sun04/27/23 at 2234, Until 04/28/23 at 1347, IV push over 2-5 minutes. polyethylene glycol (GLYCOLAX) packet 17 g 17 g, Oral, Daily as needed, Constipation, Starting on Sun04/27/23 at 2234, Until 04/28/23 at 1347 sacubitril-valsartan (ENTRESTO) 24-26 MG tablet 1 tablet 1 tablet, Oral, 2 times daily, First dose on 04/28/23 at 0900, Until Discontinued Given 04/28/2023 9:23 AM C[employer]TER AND EDGE TRIMMER 1 tablet sacubitril-valsartan (ENTRESTO) 24-26 MG tablet 2 tablet 2 tablet, Oral, Once, 1 dose, On Sun04/27/23 at 1930 Given 04/27/2023 7:52 PM CUTTER AND EDGE TRIMMER 2 tablets zolpidem (AMBIEN) tablet 5 mg 5 mg, Oral, Nightly PRN, Sleep, Starting on Sun04/27/23 at 2233, Until 04/28/23 at 1347 Given 04/27/2023 11:55 PM CUTTER AND EDGE TRIMMER 5 mg documented in this encounter Active and Recently Administered Medications Times are shown in C[employer]TER AND EDGE TRIMMER. Scheduled Medication Order 04/26/2023 04/27/2023 04/28/2023 metoprolol succinate ER (TOPROL-XL) 24 hr tablet 25 mg 25 mg, Oral, Daily, First dose on 04/28/23 at 0900, Until Discontinued, May be split in half along the tablet score line; do not chew or crush. 922 (Given - Provid er: Emma Peters RN) sacubitril-valsartan (ENTRESTO) 24-26 MG tablet 1 tablet 1 tablet, Oral, 2 times daily, First dose on 04/28/23 at 0900, Until Discontinued 922 (Given - Provid er: Emma Peters RN) sacubitril-valsartan (ENTRESTO) 24-26 MG tablet 2 tablet (COMPLETED) 2 tablet, Oral, Once, 1 dose, On Sun04/27/23 at 1930 1951 (Given - Provider: Braydon Goodson RN) PRN Medication Order 04/26/2023 04/27/2023 04/28/2023 acetaminophen (TYLENOL) tablet 650 mg 650 mg, Oral, Every 4 hours PRN, Mild pain (Scale 1 - 3), Headaches, Fever, Discomfort, Starting on Sun04/27/23 at 2234, Until 04/28/23 at 1347, Maximum dose of acetaminophen is 4000 mg from all sources in 24 hours. docusate sodium (COLACE) capsule 100 mg 100 mg, Oral, 2 times daily PRN, Constipation, Starting on Sun04/27/23 at 2234, Until 04/28/23 at 1347 HYDROcodone-acetaminophen (NORCO) 5-325 MG tablet 1 tablet 1 tablet, Oral, Every 4 hours PRN, Moderate pain (Scale 4 - 7), Starting on Sun04/27/23 at 2234, Until 04/28/23 at 1347, Maximum dose of acetaminophen is 4000 mg from all sources in 24 hours. HYDROmorphone (DILAUDID) injection 0.2 mg 0.2 mg, Intravenous, Every 2 hours PRN, Severe pain (Scale 8 - 10), Starting on Sun04/27/23 at 2234, Until 04/28/23 at 1347, Administer slowly over at least 2-3 minutes. naLOXone (NARCAN) injection 0.4 mg 0.4 mg, Intravenous, As needed, Opioid reversal, Starting on Sun04/27/23 at 2234, Until 04/28/23 at 1347 ondansetron (ZOFRAN) injection 4 mg 4 mg, Intravenous, Every 6 hours PRN, Nausea, Vomiting, Starting on Sun04/27/23 at 2234, Until 04/28/23 at 1347, IV push over 2-5 minutes. polyethylene glycol (GLYCOLAX) packet 17 g 17 g, Oral, Daily as needed, Constipation, Starting on Sun04/27/23 at 2234, Until 04/28/23 at 1347 zolpidem (AMBIEN) tablet 5 mg 5 mg, Oral, Nightly PRN, Sleep, Starting on Sun04/27/23 at 2233, Until 04/28/23 at 1347 2355 (Given - Provider: Leydi Chowdary RN) documented in this encounter Care Teams Cpc Coder Relationship Specialty Start Date End Date Venice Estrada MD [address] [place] [address] [address] [place] [address] PCP - General FAMILY PRACTICE 04/12/23 documented as of this encounter
--- OUTSIDE RECORDS SUMMARY | 2024-04-27 15:47 | XMS_ITS | Encounter Summary ---
Author Organization [facility] Address [address] [place] [address]. [place] [address] [place] [address] Care Team Providers Care Rubber Washer Name Role Phone Davin Estrada MD Primary Care Provider [phone] Reason for Referral * Imaging (Routine) - New Request Specialty Diagnoses / Procedures Referred By Contac t Referred To Contact RADIOLOGY Diagnoses SVT (supraventricular tachycardia) ([facility]) Procedures USE ECHOCARDIOGRAM Cintia Garcia MD [address] [place] [address] [address] [place] [address] Phone: tel: fax: Referral ID Status Reason Start Date Expiration Date Visits Requested Visits Authorized [id number] New Request Echocardiog farzad 3 05/18/2024 1 1 UP ARTIST Encounter Details Date Type Department Care Team (Late st Contact Info) Description 04/18/2023 Orders Only [facility] [address] [place] [address] Cintia Garcia MD [address] [place] [address] [place] [id number] Social History Tobacco Use Types Packs/Day Years Used Date Smoking Tobacco: Never Passive Smoke Exposure: Never Smokeless Tobacco: Never [facility] Utilities Answer Date Recorded In the past [...] slept in a m[facility]p (including now)? No 04/12/2023 Comments Unknown Sex and Gender Information Value Date Recorded Sex Assigned at Not on file Legal Sex Female 3:10 PM MAKE UP ARTIST Gender Identity Not on file Sexual Orientation Not on file documented as of this encounter Functional Status * Are you deaf or do you have serious difficulty hearing Answer Date of Assessment Author Status No 04/12/2023 8:35 PM MAKE UP ARTIST Trenton Ngo RN Active * Are you blind or do you have serious difficulty seeing, even when wearing glasses? Answer Date of Assessment Author Status No 04/12/2023 8:35 PM MAKE UP ARTIST Trenton Ngo RN Active * Do you have serious [...] 11:30 AM CDT Office Visit [facility] [address] [place] [phone] Jun Oscar, CHANGER FIXER [address] [place] [address] documented as of this encounter Results * USE ECHOCARDIOGRAM (09/18/2023 9:10 AM CDT) Anatomical Region Laterality Modality Cardiac Echocardiogram 09/18/2023 8:48 AM CDT Narrative 09/19/2023 9:36 PM CDT ?Echocardiography Report Pat.Name: ??KENDY CRAIG ? Pat.ID: ?[id number] ? St.Date: ?? 09/18/2023 ? Refer.MD: ??[id number], CINTIA GARCIA Exam Time: 8:48:00 AM ? Study Type:ECHO WITH CARDIAC DOPPLER COMP Height: ?160 cm ?Weight: ?61 kg ? BSA: ? 1.63 m2 ?Age: ??1945,77Y ? Sex: ? F ? BP: ?122/70 ? HR: ?55 bpm ?Sonogrphr: Dinesh Key RDCS ? Pat. Stat.:Outpatient ?CPT - 4: ?35553 ? Reason for Study:cardiomyopthy ? Procedures: 2D, [...] 09/19/2023 Echocardiography Report Pat.Name: KENDY CRAIG Pat.ID: [id number] .Date: 09/18/2023 Refer.: [id number], [facility] Exam Time: 8:48:00 AM Study Type:ECHO WITH CARDIAC DOPPLER COMP Height: 160 cm Weight: 61 kg BSA: 1.63 m2 Age: 8 1945,77Y Sex: F BP: 122/70 HR: 55 bpm Sonogrphr: Dinesh Key [facility] Pat. Stat.:Outpatient CPT - 4: 54337 Reason for Study:cardiomyopthy Procedures: 2D, M-mode, Doppler, [...] dysrhythmias documented in this encounter Care Teams Rubber Washer Relationship Specialty Start Date End Date Davin Estrada MD [address] [place] [address] [address] [place] [address] PCP - General FAMILY PRACTICE 04/12/23 documented as of this encounter
--- OUTSIDE RECORDS SUMMARY | 2024-04-27 15:47 | XMS_ITS | Encounter Summary ---
Author Organization [facility] Address [address] [place] [address]. [place] [address] [place] [address] Care Team Providers Care Demolitionist Name Role Phone Davin Estrada MD Primary Care Provider [phone] Reason for Visit * Reason Onset Date Comments Concerns 05/02/2023 Encounter Details Date Type Department Care Team (Late st Contact Info) Description 05/02/2023 Telephone [facility] [address] [place] [address] Darell Garcia MD [address] [facility] [address] [address] Concerns Social History Tobacco Use Types Packs/Day Years Used Date Smoking Tobacco: Never Passive Smoke Exposure: Never Smokeless Tobacco: Never Alcohol Use Standard Drinks/Week Comments Yes 0 (1 standard drink = 0.6 oz pur e alcohol) occasional wine [facility] Utilities Answer Date Recorded In the past 12 months has e [employer], gas, oil, or water [employer] threatened to shut off services in your [...] and heating? Not hard at all 04/27/2023 [facility] [place] of Occupat ional Health - Occupational Stress [...] on file Legal Sex Female 3:10 PM LINUX CONSULTANT Gender Identity Not on file Sexual [...] Author Status No 04/27/2023 11:00 PM Pia Hamilotn RN Active * Do you have difficulty [...] Progress Notes * Shannon Baltazar RN - 05/02/2023 2:48 PM CST Called and spoke to Cele. She stated that she had dizziness this morning but it is gone now.She istaking her Toprol XL BID and taking her entresto q d at night. This morning she took her Toprol around 0700 with some breakfast. Around 9 AM she stated that she became dizzy. She said that she took it easy staying off of her feet. Her B/P at that time was 137/76, HR 70. I talked with Cele at 1500. She was no longer feeling dizzy. I had her take B/P sitting 157/79 HR 74 and then standin/86 HR 77. Denies dizziness at this time. States she felt great yesterday Like her old self . Denies SOBor C/P. Will up date and let her know if he has any recommendations. She will let us know if hersymptoms persist. She was instructed to go to ER if her symptoms worsen. X CONSULTANT * Rosalina Baires - 05/02/2023 2:08 PM CST VM received at 1:58 on 05/02 Pt calling - this message is for Bren, I felt good yesterday but this afternoon I'm sitting on the couch due to the dizziness. I think this is all related to the heart medication Please call me back at [phone] X CONSULTANT documented in this encounter Plan of Treatment Upcoming Encounters Date Type Department Care Team (Late st Contact Info) Description 02/12/2025 11:30 AM CDT Office Visit [facility] [address] [place] [address] Jun Oscar, PHOTOVOLTAIC PANEL INSTALLER [address] [place] [address] documented as of this encounter Visit Diagnoses Not on filedocumented in this encounter Care Teams Demolitionist Relationship Specialty Start Date End Date Davin Estrada MD [address] [place] [address] [address] [place] [address] PCP - General FAMILY PRACTICE 04/12/23 documented as of this encounter
--- OUTSIDE RECORDS SUMMARY | 2024-04-27 15:47 | XMS_ITS | Encounter Summary ---
Author Organization [facility] Address [facility] [place] [address] [place] [address] Care Team Providers Care Direct Care Worker Name Role Phone Davin Estrada MD Primary Care Provider [phone] Encounter Details Date Type Department Care Team (Late st Contact Info) Description 04/27/2023 Prep for Procedure [facility] [place] Upsetter Helper Pre/Post [address] [place] [address] Ryan Nguyen MD [address] [place] [address] Social History Tobacco Use Types Packs/Day Years Used Date Smoking Tobacco: Never Passive Smoke Exposure: Never Smokeless Tobacco: Never Alcohol Use Standard Drinks/Week Comments Yes 0 (1 standard drink = 0.6 oz pur e alcohol) occasional wine [employer] Utilities Answer Date Recorded In the past 12 months has e electric, gas, oil, or water [employer] threatened to shut off services in your [...] and heating? Not hard at all 04/27/2023 [facility] [place] of Occupat ional Health - Occupational Stress [...] slept in a half-way (including now)? No 04/27/2023 Comments Unknown Sex and Gender Information Value Date Recorded Sex Assigned at Not on file Legal Sex Female 3:10 PM TRUCK LOADER AND UNLOADER Gender Identity Not on file Sexual Orientation [...] Visit [facility] [address] [place] [address] Jun Oscar, LOW PRESSURE KETTLE OPERATOR [address] [place] [address] documented as of this encounter Visit Diagnoses Not on filedocumented in this encounter Care Teams Direct Care Worker Relationship Specialty Start Date End Date Davin Estrada MD [address] [place] [address] [address] [place] [address] PCP - General FAMILY PRACTICE 04/12/23 documented as of this encounter
--- OUTSIDE RECORDS SUMMARY | 2024-04-27 15:47 | XMS_ITS | Encounter Summary ---
Author Organization [facility] Address [address] [place] [address]. [place] [address] [place] [address] Care Team Providers Care Direct Casting Operator Name Role Phone Davin Estrada MD Primary Care Provider [phone] Reason for Visit * Reason Onset Date Comments Change Of Condition 04/27/2023 Encounter Details Date Type Department Care Team (Late st Contact Info) Description 04/27/2023 Telephone [facility] [address] [place] [address] Cintia Garcia MD [address] [place] [address] Change Of Condition Social History Tobacco Use Types Packs/Day Years Used Date Smoking Tobacco: Never Passive Smoke Exposure: Never Smokeless Tobacco: Never Alcohol Use Standard Drinks/Week Comments Yes 0 (1 standard drink = 0.6 oz pur e alcohol) occasional wine C Utilities Answer Date Recorded In the past 12 months has e [employer], gas, oil, or water [employer] threatened to shut off services in your [...] and heating? Not hard at all 04/27/2023 [facility] [place] of Occupat ional Health - Occupational Stress [...] place to sleep or slept in a long term (including now)? No 04/27/2023 Comments Unknown Sex and Gender Information Value Date Recorded Sex Assigned at Not on file Legal Sex Female 3:10 PM COAL OR ORE CONTROLLER Gender Identity Not on file Sexual Orientation Not on file documented as of this encounter Functional Status * Question Answer [...] Date Author Status No 04/12/2023 8:35 PM COAL OR ORE CONTROLLER Trenton Ngo RN Active documented in this encounter Progress Notes * Shannon Baltazar RN - 05/01/2023 8:02 AM CST Spoke with Delmar. States she is feeling better today. Hasn't taken B/P yet today as she had to run errands. Verbalized understanding of medication changes as listed below OR ORE CONTROLLER * Shannon Baltazar RN - 05/01/2023 8:01 AM CST f her BP is still elevated and Entresto makes her feel unwell, then she should take her Toprol XL as bid instead of once daily if her BP remains > 150. Please let her know that recommendations because untreated HTN can cause LV systolic dysfunction.per Dr Jama OR ORE CONTROLLER * Kavitha Almaraz - 04/30/2023 3:04 PM CST VOICEMAIL RECEIVED 04/30/23 @ 2:56pm: Hi, this is ZUNILDA Snyder 45. I was wanting to leave a message for Santa Pratt. I was wondering if Dr. Jama is going to give me something else to lower my b/p or do I need to take the Entresto again. Just have the dizziness, fainting, can't turn my head. I would appreciate a call back. My phone number is ( . Thank you! OR ORE CONTROLLER * Shannon Baltazar RN - 04/27/2023 2:16 PM CST Spoke with patient . She stated that she was on her way to the ER , [facility]. Her is driving.She stated her B/P was 196/80 and was having problems walking which started around noon. OR ORE CONTROLLER * Shannon Baltazar RN - 04/27/2023 2:16 PM CST ----- Message from Kelsie Henderson RN sent at 04/27/2023 2:14 PM COAL OR ORE CONTROLLER ----- Regarding: FW: Appointment Request Contact: ----- Message ----- From: Cele Salcido Sent: 04/27/2023 2:08 PM COAL OR ORE CONTROLLER To: [facility] Subject: Appointment Request Appointment Request From: Cele Salcido With Provider: CINTIA GARCIA MD [facility] Preferred Date Range: Any Preferred Times: Any Time Reason for visit: Send a Message Comments: I am feeling light headed. Blood pressure and heart rate are normal Been checking all day. When I walk need assistance. What should I do. OR ORE CONTROLLER documented in this encounter Plan of Treatment Upcoming Encounters Date Type Department Care Team (Late st Contact Info) Description 02/12/2025 11:30 AM CDT [facility] [address] [place] [address] Jun Oscar, BANK APPRAISER [address] [place] [address] documented as of this encounter Visit Diagnoses Not on filedocumented in this encounter Care Teams Direct Casting Operator Relationship Specialty Start Date End Date Davin Estrada MD [address] [place] [address] [address] [place] [address] PCP - General FAMILY PRACTICE 04/12/23 documented as of this encounter
--- OUTSIDE RECORDS SUMMARY | 2024-04-27 15:47 | XMS_ITS | Encounter Summary ---
Author Organization [facility] Address [address] [place] [address]. [place] [address] [place] [address] Care Team Providers Care Automatic Lathe Tender Name Role Phone Venice Estrada MD Primary Care Provider [phone] Reason for Visit * Reason Comments Cardiomyopathy Newly diagnosed Encounter Details Date Type Department Care Team (Latest Contact Info) Description 04/18/2023 9:00 AM RESEARCH BIOLOGIST Office Visit [facility] [address] [place] [address] Darell Garcia MD 9 [facility] [address] [address] Cardiomyopathy (Newly diagnosed) Social History Tobacco Use Types Packs/Day Years Used Date Smoking Tobacco: Never Passive Smoke Exposure: Never Smokeless Tobacco: Never [facility] Utilities Answer Date Recorded [...] slept in a fci (including now)? No 04/12/2023 Comments Unknown Sex and Gender Information Value Date Recorded Sex Assigned at Not on file Legal Sex Female 3:10 PM RESEARCH BIOLOGIST Gender Identity Not on file Sexual Orientation Not on file documented as of this encounter Last Filed Vital Signs Vital Sign Reading Time Taken Comments Blood Pressure 136/76 04/18/2023 8:54 AM RESEARCH BIOLOGIST Pulse 64 04/18/2023 8:54 AM RESEARCH BIOLOGIST Temperature - - Respiratory Rate 16 04/18/2023 8:54 AM RESEARCH BIOLOGIST Oxygen Saturation 92% 04/18/2023 8:54 AM RESEARCH BIOLOGIST Inhaled Oxygen Concentration - - Weight 61.2 kg (135 lb) 04/18/2023 8:54 AM RESEARCH BIOLOGIST Height 157.5 cm (5' 2 ) 04/18/2023 8:54 AM RESEARCH BIOLOGIST Body Mass Index 24.69 04/18/2023 8:54 AM RESEARCH BIOLOGIST documented in this encounter Functional Status * Are you deaf or do you have serious difficulty hearing Answer Date of Assessment Author Status No 04/12/2023 8:35 PM RESEARCH BIOLOGIST Trenton Ngo RN Active * Are you blind or do you have serious difficulty seeing, even when wearing glasses? Answer Date of Assessment Author Status No 04/12/2023 8:35 PM RESEARCH BIOLOGIST Trenton Ngo RN Active * Do you have serious difficulty walking or climbing stairs? Answer Date of Assessment Author Status No 04/12/2023 8:35 PM RESEARCH BIOLOGIST Trenton Ngo RN Active * Do you have difficulty [...] Taylor RN Active documented in this encounter Patient Instructions * Patient Instructions* Darell Garcia MD - 04/18/2023 9:00 AM RESEARCH BIOLOGIST The echo you had showed low heart function We will put you on medications that can make the heart stronger (Torpol XL and Entresto) We want to investigate further with a heart catheterization Please check your blood pressure at home daily, and if your blood pressure <100 cut the Metoprolol dose in half We need to repeat echo after 3 months of taking the new medicines (echo to be done around July 22) then follow up 1 week after the echo is done. The ablation will be discussed on your next visit ARCH BIOLOGIST ARCH BIOLOGIST documented in this encounter Progress Notes * Shannon Baltazar RN - 04/18/2023 9:00 AM CSTAddended by: SHANNON BALTAZAR on: 04/18/2023 09:44 AM Modules accepted: Orders ARCH BIOLOGIST * Darell Garcia MD - 04/18/2023 9:00 AM CST Images from the original note were not included. Cardiac Electrophysiology Clinic Note PATIENT NAME: Cele Salcido : 1945 REFERRING PROVIDER: No ref. provider found PCP: VENICE ESTRADA MD Reason for Encounter Hospital follow-up for SVT/palpitations/recently diagnosed cardiomyopathy Chief Complaint Hospital follow-up for SVT/palpitations/recently diagnosed cardiomyopathy History of Present Illness 77-year-old lady without significant past medical history until couple of months ago when she started having intermittent episodes of palpitations associated with dizziness and lightheadedness. She was transferred from an outside hospital and and was supposed to have an ablation of her SVT however,she decided to go home and have it done as an outpatient. She had an echocardiogram and CT chest when she was in the hospital, and discharged on Lopressor 12.5 twice daily as a bridge until she gets the ablation done. She comes in today and states that she has been doing well and denies having any recurrence of palpitations or dizziness. The patient is very active she rides her bicycle twice a week and she walks 5 days a week without any chest pain or palpitations or dizziness. She was found to have severe LV systolic dysfunction on transthoracic echocardiogram that was done [address] chest was suggestive of CAD. The patient is very active and does not have any symptoms to suggest ischemia. She states that she has a strong family history of coronary artery disease. She has been compliant with her medications and does not check her blood pressure at home. She doesnot take aspirin. Previous Cardiac History, Cardiac Tests, and Other Relevant History Prior Known Arrhythmias or Past EP History: SVT, documented on outside hospital records. ECG: Outside hospital ECGs as well as our [...] pressure. Mild to moderate central aortic regurgitation. Ischemia Evaluation: Never had ischemia evaluation. In light of had a newly diagnosed cardiomyopathy and CT suggestive of CAD, will refer for heart catheterization and coronary angiography for further evaluation of severe cardiomyopathy Diagnosis Newly diagnosed severe LV systolic dysfunction. LVEF 30-35% SVT documented on outside hospital ECG. Recommendations/Plan Need to investigate her cardiomyopathy. Will refer for coronary angiography to rule out ischemia and CAD. Start CMP medications, Toprol-XL 25 and Entresto. She is euvolemic and does not need diuretics. Repeat transthoracic echocardiogram in 3 months after starting CMP medications (around July 23, 2023). Will discuss ablation for SVT after ischemia evaluation and repeat echo in 3 months No history of hypertension or HLD. Will defer starting aspirin or statin therapy until coronary angiography Medications Current Outpatient Medications: metoprolol succinate ER (TOPROL-XL) 25 MG 24 hr tablet, Take 1 tablet (25 mg total) by mouth daily., Disp: 30 tablet, Rfl: 3 zolpidem (AMBIEN) 5 MG tablet, Take 1 tablet (5 mg total) by mouth nightly as needed for Sleep., Disp: , Rfl: Medications Changes during this visit: Switch to Lopressor with Toprol-XL and started Entresto Allergies Review of patient's allergies indicates: No Known Allergies Past History Past Medical History: Diagnosis Date Essential (primary) hypertension Ovarian cancer (HHS/HCC) (CMS/HCC) s/p chemo and resection Past Surgical History: Procedure Laterality Date TOTAL ABDOM HYSTERECTOMY Social History Tobacco Use Smoking status: Never Passive exposure: Never Smokeless tobacco: Never Family History Problem Relation Name Age of Onset Alzheimer's disease Mother CABG Father Physical Examination Vitals: 04/18/23 0854 BP: 136/76 Pulse: 64 Resp: 16 SpO2: 92% General Appearance: Alert, oriented, no acute distress, [...] or lesions Pulses: +2 and equal BL. Psych: Mood and affect appear normal Signed DARELL GARCIA MD 04/18/2023 ARCH BIOLOGIST documented in this encounter Plan of Treatment Upcoming Encounters Date Type Department Care Team (Late st Contact Info) Description 02/12/2025 11:30 AM CDT Office Visit [facility] [address] [place] [address] Jun Oscar HEALTH RECORDS TECHNOLOGY TEACHER [address] [place] [address] documented as of this encounter Visit Diagnoses Diagnosis SVT (supraventricular tachycardia) (CMS/HCC HHS/HCC)- Primary Other specified cardiac dysrhythmias documented in this encounter Care Teams Automatic Lathe Tender Relationship Specialty Start Date End Date Venice Estrada MD [address] [place] [address] [address] [place] [address] PCP - General FAMILY PRACTICE 04/12/23 documented as of this encounter
--- OUTSIDE RECORDS SUMMARY | 2024-04-27 15:47 | XMS_ITS | Encounter Summary ---
Author Organization [facility] Address [address] [place] [address]. [place], [place] [address] [place] [address] Care Team Providers Care Medical Assembly Name Role Phone Davin Estrada MD Primary Care Provider [phone] Encounter Details Date Type Department Care Team (Latest Contact Info) Description 05/04/2023 Travel Social History Tobacco Use Types Packs/Day Years Used Date Smoking Tobacco: Never Passive Smoke Exposure: Never Smokeless Tobacco: Never Alcohol Use Standard Drinks/Week Comments Yes 0 (1 standard drink = 0.6 oz pur e alcohol) occasional wine [facility] Utilities Answer Date Recorded In the past 12 months has e [employer], gas, oil, or water [employer] threatened to shut off services in [...] and heating? Not hard at all 04/27/2023 [facility] [place] of Occupat ional Health - Occupational Stress [...] place to sleep or slept in a halfway (including now)? No 04/27/2023 Comments Unknown Sex and Gender Information Value Date Recorded Sex Assigned at Not on file Legal Sex Female 3:10 PM CRATE MAKER Gender Identity Not on file Sexual [...] Assessment Author Status No 04/27/2023 11:00 PM CRATE MAKER Kampwerth, Pia R, RN Active * Do [...] Description 02/12/2025 11:30 AM CDT Office Visit [facility] [address] [place] [address] Jun Oscar, STOVE TENDER [address] [place] [address] documented as of this encounter Visit Diagnoses Not on filedocumented in this encounter Care Teams Medical Assembly Relationship Specialty Start Date End Date Davin Estrada MD [address] [place] [address] [address] [place] [address] PCP - General FAMILY PRACTICE 04/12/23 documented as of this encounter
--- OUTSIDE RECORDS SUMMARY | 2024-04-27 15:47 | XMS_ITS | Encounter Summary ---
Author Organization [facility] Address [address] [place] [address]. [place] [address] [place] [address] Care Team Providers Care Sole Assessor Name Role Phone Davin Estrada MD Primary Care Provider [phone] Reason for Visit * Reason Onset Date Comments Schedule Procedure 04/27/2023 Encounter Details Date Type Department Care Team (Late st Contact Info) Description 04/27/2023 Telephone [facility] [address] [place] [address] Darell Garcia MD [address] [place] [address] [place] [address] Schedule Procedure Social History Tobacco Use Types Packs/Day Years Used Date Smoking Tobacco: Never Passive Smoke Exposure: Never Smokeless Tobacco: Never Alcohol Use Standard Drinks/Week Comments Yes 0 (1 standard drink = 0.6 oz pur e alcohol) occasional wine C Utilities Answer Date Recorded In the past 12 months has e [employer], gas, oil, or water [employer] threatened to shut off services in your [...] and heating? Not hard at all 04/27/2023 [facility] [place] of Occupat ional Health - Occupational Stress [...] slept in a fpc (including now)? No 04/27/2023 Comments Unknown Sex and Gender Information Value Date Recorded Sex Assigned at Not on file Legal Sex Female 3:10 PM CHIEF RECORDIST Gender Identity Not on file Sexual Orientation [...] Assessment Author Status No 04/12/2023 8:35 PM CHIEF RECORDIST Trenton Ngo RN Active * Do you [...] Progress Notes * Shannon Baltazar RN - 04/27/2023 9:14 AM CST Spoke with Cele and discussed the procedure below. Verbalized understanding Pre Procedure Appt Date: 06/14/[address] Jama at 0900 H&P and labs Procedure Date: 06/27/2023 12:30 PM SVT ablation Arrival: 10:30 AM NPO: for 12 hours prior to procedure Meds: continue current medications as prescribed Labs: see above Letter sent F RECORDIST documented in this encounter Plan of Treatment Upcoming Encounters Date Type Department Care Team (Late st Contact Info) Description 02/12/2025 11:30 AM CDT Office Visit [facility] [address] [place] [address] Jun Oscar, NURSE QUALITY [address] [place] [address] Scheduled Orders Name Type Priority Associated Diagnoses Orde r Schedule CBC W/DIFF AUTOMATED Lab Routine SVT (supraventricular tachycardia) Expected: 06/14/2023, Expires: 04/27/2024 COMPREHENSIVE METABOLIC PANEL Lab Routine SVT (supraventricular tachycardia) Expected: 06/14/2023, Expires: 04/27/2024 documented as of this encounter Visit Diagnoses Diagnosis SVT (supraventricular tachycardia) (CMS/HCC HHS/HCC)- Primary Other specified cardiac dysrhythmias documented in this encounter Care Teams Sole Assessor Relationship Specialty Start Date End Date Davin Estrada MD [address] [place] [address] [address] [place] [address] PCP - General FAMILY PRACTICE 04/12/23 documented as of this encounter
--- OUTSIDE RECORDS SUMMARY | 2024-04-27 15:47 | XMS_ITS | Encounter Summary ---
Author Organization [facility] Address [address] [place] [address]. [place] [address] [place] [address] Care Team Providers Care Human Resources Safety Manager Name Role Phone Davin Estrada MD Primary Care Provider [phone] Reason for Visit * Reason Onset Date Comments Error 05/01/2023 Encounter Details Date Type Department Care Team (Late st Contact Info) Description 05/01/2023 Telephone [facility] [address] [place] [address] Darell Garcia MD [address] [facility] [address] [address] Error Social History Tobacco Use Types Packs/Day Years Used Date Smoking Tobacco: Never Passive Smoke Exposure: Never Smokeless Tobacco: Never Alcohol Use Standard Drinks/Week Comments Yes 0 (1 standard drink = 0.6 oz pur e alcohol) occasional wine [facility] Utilities Answer Date Recorded In the past 12 months has [employer], gas, oil, or water [employer] threatened to shut off services in your [...] and heating? Not hard at all 04/27/2023 [facility] [place] of Occupat ional Health - Occupational Stress [...] on file Legal Sex Female 3:10 PM SHOE PACKER Gender Identity Not on file Sexual Orientation [...] 02/12/2025 11:30 AM CDT [facility] [address] [place] [address] Jun Oscar, ARABIC LINGUIST [address] [place] [address] documented as of this encounter Visit Diagnoses Not on filedocumented in this encounter Care Teams Human Resources Safety Manager Relationship Specialty Start Date End Date Davin Estrada MD [address] [place] [address] [address] [place] [address] PCP - General FAMILY PRACTICE 04/12/23 documented as of this encounter
--- OUTSIDE RECORDS SUMMARY | 2024-04-27 15:47 | XMS_ITS | Encounter Summary ---
Author Organization [facility] Address [address] [place] [address]. [place], [place] [id number] [place] [id number] Care Team Providers Care [employer]ges [employer] Buildings Supervisor Name Role Phone Venice Estrada MD Primary Care Provider [phone] Reason for Referral * Imaging (Urgent) - Closed Specialty Diagnoses / Procedures Referred By Contac t Referred To Contact RADIOLOGY Procedures CTA CHEST PE PROTOCOL Ron Miner MD Phone: tel: fax: Referral ID Status Reason Start Date Expiration Date Visits Re quested Visits Authorized [id number] Closed 04/13/2023 04/13/2024 1 1 WELDER * Imaging (Urgent) - Closed Specialty Diagnoses / Procedures Referred By Contac t Referred To Contact RADIOLOGY Procedures USE ECHOCARDIOGRAM Nomi Rodriguez MD Phone: tel: fax: Referral ID Status Reason Start Date Expiration Date Visits Re quested Visits Authorized [id number] Closed 04/12/2023 04/12/2024 1 1 WELDER Reason for Visit * Auth/Cert (Routine) Specialty Diagnoses / Procedures Referred By Contac t Referred To Contact Diagnoses SVT (supraventricular tachycardia) ([facility]) SVT Procedures NONE Thomas Jesus MD [address] [place] [address] Phone: tel: fax: Referral ID Status Reason Start Date Expiration Date Visits Re quested Visits Authorized [id number] 1 1 Encounter Details Date Type Department Care Team (Latest Contact Info) Description 04/12/2023 8:24 PM ARC WELDER - 04/13/2023 2:22 PM ARC WELDER Hospital Encounter [facility] [address] [place] [address] Thomas Jesus MD [address] [place], [place] [id number] Nomi Rodriguez MD [address] [place] [address] Ron Miner MD [address] [place] [address] Discharge Disposition: Home or Self Care (Routine Discharge) Social History Tobacco Use Types Packs/Day Years Used Date Smoking Tobacco: Never Passive Smoke Exposure: Never Smokeless Tobacco: Never Tobacco Cessation:Counseling Given: No [facility] Utilities Answer Date Recorded In the past 12 months has [facility] [employer] gas, oil, or water [employer] threatened to shut off services in your [...] slept in a usp (including now)? No 04/12/2023 Comments Unknown Sex and Gender Information Value Date Recorded Sex Assigned at Not on file Legal Sex Female 3:10 PM ARC WELDER Gender Identity Not on file Sexual Orientation Not on file documented as of this encounter Last Filed Vital Signs Vital Sign Reading Time Taken Comments Blood Pressure 127/63 04/13/2023 8:20 AM ARC WELDER Pulse 83 04/13/2023 8:20 AM ARC WELDER Temperature 36.7 ??C (98 ??F) 04/13/2023 8:20 AM ARC WELDER Respiratory Rate 16 04/12/2023 8:18 PM ARC WELDER Oxygen Saturation 97% 04/13/2023 8:20 AM ARC WELDER Inhaled Oxygen Concentration - - Weight 59.3 kg (130 lb 11.7 oz) 04/13/2023 5:34 AM ARC WELDER Height 157.5 cm (5' 2 ) 04/12/2023 8:42 PM ARC WELDER Body Mass Index 23.91 04/12/2023 8:42 PM ARC WELDER documented in this encounter Functional Status * Question Answer Date of Assessment Author Status Do you have serious difficulty walking or climbing stairs? No 04/12/2023 8:35 PM Thelma Taylor RN Active * Question Answer Date of Assessment Author Status Do you have difficulty dressing or bathing? No 04/12/2023 8:35 PM Emiliano Taylor RN Active Because of a physical, mental, or emotional condition, do you have difficulty doing errands alone such as visiting a doctor's office or shopping? No 04/12/2023 8:35 PM Thelma Taylor RN Active * Are you deaf or [...] or making decisions? No 04/12/2023 8:35 PM ARC WELDER Braydon Ngo RN Active * Because of a physical, mental, or emotional condition, do you have serious difficulty concentrating, remembering, or making decisions? Answer Entry Date Author Status No 04/12/2023 8:35 PM ARC WELDER Trenton Ngo RN Active documented in this encounter Discharge Summaries * Rno Miner MD - 04/13/2023 1:51 PM CST Physician Discharge Summary Patient ID: Kendy Salcido [id number] 77-year-old 1945 Admit date: 04/12/2023 Expected Discharge Date: 04/13/2023 Primary care Physician: VENICE ESTRADA MD Admitting Physician: Thomas Jesus MD Discharge Physician: RON MINER MD Admission Diagnoses: SVT (supraventricular tachycardia) [I47.10] Discharge Diagnoses: #SVT #Hypertension Discharged Condition: good Hospital Course: 77-year-old female with history of initial was presented to [facility] with complaint of palpitation patient was noted to be in supraventricular tachycardia. Patient received IV fluid and received 2 doses of adenosine. She also was shocked. Patient converted to sinus rhythm afterwards. EP service was consulted. Patient remained in sinus rhythm EP service recommended to keep patient on metoprolol and do outpatient follow-up for ablation. Patient also noted to have elevated D-dimer she hada CTA chest done which was negative. She was doing well otherwise on 04/13/2023 so she was discharged home. Consults: cardiology Code Status: Full Code Procedures/Significant Diagnostic Studies: CTA CHEST PE PROTOCOL Final Result by User, [id number] (04/13 3682) EXAMINATION: CTA CHEST WITH CONTRAST, PULMONARY EMBOLISM CLINICAL HISTORY: PULMONARY EMBOLISM (PE) SUSPECTED, POSITIVE D-DIMER.palpitations and intermittent episodes of lightheadedness and dizziness . COMPARISON: None. TECHNIQUE: Computed tomography angiography was performed of the chest after administration of intravenous contrast, 80 mL Isovue-370, according to pulmonary embolism protocol. Maximum intensity projection images were obtained. A dose lowering technique was used for this procedure, which may include, but is not limited to, dose reduction technique, automated exposure control, the use of iterative reconstruction, and ALARA (As Low As Reasonably Achievable) / Image Gently techniques. FINDINGS: Expiration images chest. No pneumothorax. No pleural effusion. Dependent atelectasis. Calcified granuloma. No suspicious lung mass or consolidation. Coronary artery disease. Tortuous atherosclerotic thoracic aorta. No pathologic filling defects in the pulmonary artery. Calcified mediastinal and hilar lymph nodes. Old rib fracture. IMPRESSION: 1. No acute pulmonary embolism. 2. Coronary artery disease. Ordered By: RON MINER Interpreted By: Juanito Broderick MD, 04/13/2023 1:44 PM USE ECHOCARDIOGRAM (Results Pending) Discharge Exam: Patient was seen and examined on day of discharge, vitals were stable. Disposition: Home Patient Instructions: Current Discharge Medication List START taking these medications Details metoprolol tartrate (LOPRESSOR) 25 MG tablet Take 1 tablet (25 mg total) by mouth 2 (two) times daily. Qty: 60 tablet, Refills: 0 CONTINUE these medications which have NOT CHANGED Details zolpidem (AMBIEN) 5 MG tablet Take 1 tablet (5 mg total) by mouth nightly as needed for Sleep. STOP taking these medications losartan (COZAAR) 100 MG tablet Activity & DME Activity as tolerated Wound Care: none needed Follow-up Follow-up primary physician Please follow up with your primary care physician in 1 week. Diet Diet general Cholesterol restriction, if any: Low Cholesterol Na restriction, if any: 2 GM NA Venice Estrada MD [address] [place] [address] Schedule an appointment as soon as possible for a visit in 1 week(s) Cintia Garcia MD [address] [address] Schedule an appointment as soon as possible for a visit in 1 week(s) as recommended by his office. Venice Estrada MD [address] [place] [address] Total time spent on discharge was 34 minutes. Thank you for allowing [facility] hospitalist service to take care of your patient, Please call [phone] Ext [phone] if you have any questions or concern. Signed: RON MINER MD 04/13/2023 1:51 PM WELDER documented in this encounter Discharge Instructions * Attachments The following attachments cannot be sent through Care Everywhere. * Angina Discharge Instructions (Paraguayan) * Metoprolol, ADULT (Paraguayan) documented in this encounter Medications at Time of Discharge metoprolol tartrate (LOPRESSOR) 25 MG tablet Take 1 tablet (25 mg total) by mouth 2 (two) times daily. 60 tablet 04/13/2023 04/18/2023 zolpidem (AMBIEN) 5 MG tablet Take 1 tablet (5 mg total) by mouth nightly as needed for Sleep. 02/12/2024 documented as of this encounter H&P Notes * Nomi Rodriguez MD - 04/12/2023 9:21 PM CST [facility] Hospitalist Admission H&P Attending Provider: Nomi Rodriguez MD PCP: VENICE ESTRADA MD Kendy Salcido is an 77-year-old female. Reason for Admission: SVT (supraventricular tachycardia) HPI: Kendy Salcido is a 77-year-old female with history of hypertension presents patient with tachycardiaand weakness. Patient reported having episode approximately 3 weeks ago where she felt lightheaded and off-balance and resolved on its own. This episode of breath that she drank fine and she thought it was due to this and has stopped taking wine since then. She normally drinks about half a cup of wine daily. About 1 week ago, she reported feeling bad and having palpitations followed by nausea and vomiting and this resolved the episode. Around 4 AM this morning she woke up showing similar complaints of palpitations, nausea and weakness. No chest pain or shortness of breath. She was in the ER for evaluation. She was noted to be in SVT with heart rate of 203. Initial blood pressure in the . Labs with WBC 6.1, Hgb 13.6, PLT 235, BUN 16, creatinine 1.07, K+ 3.8, Mg 1.7, LFTs normal, troponin negative, proBNP 1496, flu, RSV and COVID PCR negative. TSH 2.69. Lactate 3.0. Patient received IV fluid, and adenosine 6 mg followed by 12 mg without change. She was then cardioverted with 100 J. EKG showed normal sinus rhythm with signs of LVH. EP consulted and pt transferred to [facility]. Currently asymptomatic. She reports having similar sensations in the fall and spring at times and she would bend over and relieve her symptoms. She had episode 20 years ago of syncope but none in the interim. Review of Systems All pertinent positives and negatives as per HPI above. All remaining systems reviewed and are negative. Physical Exam: General: Appears to be in no acute distress. Head: normocephalic Eyes: PERRL, EOMI, vision is grossly normal, no scleral icterus. Ears: hearing grossly intact, atraumatic external ear Throat: Oropharynx without erythema or tonsillar exudate. Moist Mucous Membranes . Neck: Symmetric, trachea midline, supple, no thyroidmegaly. Lungs: clear to auscultation bilaterally Heart: regular rate and rhythm, S1, S2 normal, no murmur, click, rub or gallop Abdomen: soft, non-tender. Bowel sounds normal. No masses or hepatosplenomegaly. Skin: No rashes or lesions Neurologic: Alert and Oriented x3, no focal deficits. Sensation grossly normal. Psych: Appropriate mood and affect. Past Medical History: Diagnosis Date Essential (primary) hypertension Ovarian cancer ([facility]/HCC) ([facility]/HCC) s/p chemo and resection Allergies: No Known Allergies Social History Tobacco Use Smoking status: Never Passive exposure: Never Smokeless tobacco: Never Substance Use Topics Alcohol use: Not on file Social History Social History Narrative No smoking. Drinks wine 0.5 cup daily. Past Surgical History: Procedure Laterality Date TOTAL ABDOM HYSTERECTOMY Family History Problem Relation Name Age of Onset Alzheimer's disease Mother CABG Father No current facility-administered medications on file prior to encounter. Current Outpatient Medications on File Prior to Encounter Medication Sig losartan (COZAAR) 100 MG tablet Take 1 tablet (100 mg total) by mouth daily. zolpidem (AMBIEN) 5 MG tablet Take 1 tablet (5 mg total) by mouth nightly as needed for Sleep. Principal Problem: SVT (supraventricular tachycardia) SNOMED CT(R): SUPRAVENTRICULAR TACHYCARDIA Height 1.575 m (5' 2 ), weight 59.4 kg (131 lb). No results for input(s): WBC , HGB , HCT , MCV , PLT , RBC in the last 72 hours. No results for input(s): ALT , AST , CO2 , CL , GLU , K , NA , BUN in the last 72 hours. Invalid input(s): ALBUMIN , ALKPHOS , BILITOT , CALCIUM , CREATININE , PROT Microbiology: Microbiology Results (last 14 days) No results found for the last 336 hours. Imaging: No results found. Assessment and Plan: Kendy Salcido is a 77-year-old female with history of hypertension presents patient with tachycardia, nausea/vomiting and weakness. She was noted to be in SVT w/ HR in 200s. Given adenosine x2 w/o conversion and Cardioverted w/ 100J. EKG shows NSR w/ LVH. TSH wnL. K 3.8 and Mg 1.7. Trop neg and proBNP 1496. SVT HTN Plan --3 episodes in the last 3 weeks. S/p Cardioversion. --monitor on tele. --will start low dose Metoprolol Tartrate 12.5 mg BID. --Echo in AM. --EP consulted. CODE STATUS: FULL DVT prophylaxis: Lovenox Diet: Cardiac NOMI RODRIGUEZ MD 04/12/2023 Thank you for choosing [facility] hospitalist service. Please call us if any questions or concerns. WELDER documented in this encounter Consult Notes * Cintia Garcia MD - 04/13/2023 9:06 AM CSTAssociated Order(s): IP CONSULT TO CARDIOLOGY Images from the original note were not included. Cardiac Electrophysiology Consult Note PATIENT NAME: Kendy Salcido : 1945 REFERRING PROVIDER: Neftali Perdue MD PCP: VENICE ESTRADA MD REASON FOR CONSULTATION SVT CHIEF COMPLAINT Palpitations associated with lightheadedness, nausea and vomiting HISTORY OF PRESENT ILLNESS 77-year-old lady with PMH significant for HTN who has been transferred for further evaluation and management of SVT. The patient states that 3 weeks ago she started having palpitations and intermittent episodes of lightheadedness and dizziness associated with palpitations. She had another episode aweek ago which lasted around 1 hour and resolved on its own. Yesterday she had a prolonged episode that lasted more than 2 hours and caused nausea and vomiting. She went to the local ER and she was found to be in SVT with a heart rate of 200 bpm. She was given IV adenosine twice without success. Subsequently she was cardioverted with 100 J which converted her to normal sinus rhythm and aborted the SVT episode. She was transferred for further management and evaluation. She states that she is very active and she walks 5 days a week and rides a bicycle 2 days a week. She denies any history of chest pain, shortness of breath, or palpitations or lightheadedness with exercise. She is not compliant with her medications and denied any side effects. She had breakfast this morning and she is anxious to go home to see her family who are coming from out of town. PAST CARDIAC HISTORY & TESTING ECG: Multiple ECGs reviewed. Outside hospital ECGs reviewed. First ECG shows SVT at a rate of 200 bpm, suspicious for AVNRT. The second ECG at outside hospital ER after the cardioversion was obtainedand showed sinus rhythm. ECG done yesterday on arrival shows normal sinus rhythm. TELEMETRY: Telemetry reviewed she has been in sinus rhythm since arrival LV FUNCTION EVALUATION: TTE to be done and performed today PAST HISTORY Past Medical History: Diagnosis Date Essential (primary) hypertension Ovarian cancer ([facility]) ([facility]/HCC) s/p chemo and resection Past Surgical History: Procedure Laterality Date TOTAL ABDOM HYSTERECTOMY Social History Tobacco Use Smoking status: Never Passive exposure: Never Smokeless tobacco: Never Family History Problem Relation Name Age of Onset Alzheimer's disease Mother CABG Father MEDICATIONS Scheduled Meds: enoxaparin 40 mg Subcutaneous Nightly (enoxaparin) metoprolol tartrate 12.5 mg Oral BID Continuous Infusions: PRN Meds: acetaminophen, ondansetron Meds Prior to Admission: Medications Prior to Admission Medication Sig Dispense Refill losartan (COZAAR) 100 MG tablet Take 1 tablet (100 mg total) by mouth daily. zolpidem (AMBIEN) 5 MG tablet Take 1 tablet (5 mg total) by mouth nightly as needed for Sleep. ALLERGIES No Known Allergies REVIEW OF SYSTEMS A comprehensive review of systems was negative except for intermittent palpitations associated withnausea and vomiting and lightheadedness as detailed in the HPI. PHYSICAL EXAMINATION Wt Readings from Last 3 Encounters: 04/13/23 59.3 kg (130 lb 11.7 oz) Filed Vitals: 04/12/23 2300 04/13/23 0024 04/13/23 0534 04/13/23 0820 BP: (!) 148/62 136/58 (!) 140/66 127/63 Pulse: 71 67 71 83 Resp: Temp: 97.9 ??F (36.6 ??C) 97.7 ??F (36.5 ??C) TempSrc: Oral Oral SpO2: 97% 99% 97% Weight: 59.3 kg (130 lb 11.7 oz) Height: General Appearance: Alert, oriented, no [...] BL. 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 A thorough discussion about SVT management including medications and possible ablation was carried out with the patient. I offered her an EP study and ablation to be done today, however she already had breakfast and she is anxious to go home. After discussing SVTepisodes and management she decided to have it done as an outpatient. RECOMMENDATIONS/PLAN Outpatient EP study and ablation of SVT. We will arrange for EP study and possible SVT ablation to be done in the near future Obtain TTE today prior to discharge Metoprolol 12.5 bid and discharge home on Metoprolol 12.5 bid in addition to her previous medications Okay to discharge after obtaining TTE I personally spent 45 minutes caring for this patient. Signed CINTIA GARCIA MD 04/13/2023 WELDER documented in this encounter Plan of Treatment Upcoming Encounters Date Type Department Care Team (Late st Contact Info) Description 02/12/2025 11:30 AM CDT [facility] [address] [place] [id number] Jun Oscar, PAPER BALER [address] [place] [address] documented as of this encounter Procedures Procedure Name Priority Date/Time Associated Diagnosis Comments USE ECHOCARDIOGRAM Today 04/13/2023 11 :31 AM ARC WELDER CTA CHEST PE PROTOCOL Today 04/13/2023 10:54 AM ARC WELDER HEMOGLOBIN, GLYCOSYLATED Routine 04/13/2023 6:17 AM ARC WELDER BASIC METABOLIC PANEL Routine 04/13/2023 6:17 AM ARC WELDER D-DIMER, QUANTITATIVE Routine 04/13/2023 6:17 AM ARC WELDER CBC W/DIFF AUTOMATED Routine 04/13/2023 6:17 AM ARC WELDER MAGNESIUM Routine 04/13/2023 6:17 AM ARC WELDER ECG 12-LEAD STAT 04/12/2023 9:33 PM ARC WELDER documented in this encounter Results * USE ECHOCARDIOGRAM (04/13/2023 11:31 AM ARC WELDER) Anatomical Region Laterality Modality Cardiac Echocardiogram 04/13/2023 9:34 AM ARC WELDER Narrative 04/13/2023 9:50 PM ARC WELDER ?Echocardiography Report Pat.Name: ??KENDY SALCIDO ? Pat.ID: ?[id number] ? St.Date: ?? 04/13/2023 ? Refer.MD: ??[id number] ROSCOE Solis ? EWDPROV ?EWDPROV Exam Time: 9:34:00 AM ? Study Type:ECHO WITH CARDIAC DOPPLER COMP Height: ?62 in ? Weight: ?131 lb ? BSA: ? 1.6 m2 ?Age: ??1945,77Y ? Sex: ? F ? BP: ?140/66 ? HR: ?72 bpm ?Sonogrphr: Teri Vaca RD ? Pat. Stat.:Inpatient ? Room: ?622 ? CPT - 4: ?91325 ? Reason for Study:SVT ? Procedures: 2D, M-mode, Doppler, Color Flow, Portable ++++++++++++++++++++++++++++++++++++ SUMMARY: ++++++++++++++++++++++++++++++++++++ The left ventricular size is normal. Mild eccentric left ventricular hypertrophy. Estimated left ventricular ejection fraction is 30 - 35%. Left ventricular diastolic function is abnormal (grade 2 - pseudonormal pattern). The right ventricular size is normal. Right ventricular systolic function is normal. Inferior vena cava is not dilated and ??shows >50% collapse with respiration consistent with normal right atrial pressure. Mild to moderate central ??aortic regurgitation. ++++++++++++++++++++++++++++++++++++ FINDINGS: ++++++++++++++++++++++++++++++++++++ LV: ? The left ventricular size is normal. The left ventricular ?systolic function is moderately depressed. Estimated left ?ventricular ejection fraction is 30 - 35%. Mild eccentric ?left ventricular hypertrophy. Left ventricular diastolic ?function is abnormal (grade 2 - pseudonormal pattern). WM: ? Moderate global hypokinesis is noted. RV: ? The right ventricular size is normal. Right ventricular ?systolic function is normal. LA: ? The left atrial volume is moderately increased RA: ? Right atrial size is normal. ENDY: ? No evidence of pericardial effusion. AO: ? The aortic root measures 3.5 cm. The proximal ascending ?aorta measures 3.4cm. PA: ? Unable to reliably quantitate pulmonary systolic pressure. SVn: ?Inferior vena cava is not dilated and shows >50% collapse ?with respiration consistent with normal right atrial ?pressure. AV: ? The aortic valve is trileaflet. No evidence of aortic valve ?stenosis. Mild to moderate central aortic regurgitation. PHT ?> 600 ms MV: ? Mild mitral regurgitation. No evidence of mitral stenosis. PV: ? No evidence of pulmonic regurgitation. Pulmonic valve not ?well visualized. TV: ? A trace of tricuspid regurgitation. No evidence of tricuspid ?valve stenosis. ++++++++++++++++++++++++++++++++++++ MEASUREMENTS: ++++++++++++++++++++++++++++++++++++ ?DOPPLER LVOT ?? LVOTpkPG ? 3 mmHg ?LVOTmnPG ? 2 mmHg LVOTpkVel ? 88.7 cm/s (70-110)+ LVOT SV ? 62 ml ?? LVOT TVI ?19.4 cm ? AV Forward Flow AV TVI ?26 cm ?AV pkPG ?6 mmHg AV pkVel ? 127 cm/s (100-170)+ Area (TVI) ?2.39 cm2 ??(3-5)* AV mnVel ?88.8 cm/s ?Area (Minesh) ?2.23 cm2 ??(3-5)* AV mnPG ?4 mmHg ? AV Regurg Flow AV pkVel ? 451 cm/s ?AV P1/2t ? 873 msec AV pkPG ? 81 mmHg ? MV Forward Flow MV DeTm ?275 msec ?MV pkPG ?4 mmHg MVA P1/2t ? 2.29 cm2 ??(4-6)* ?? MV E/A ? 0.7 ? MV P1/2t ?96 msec (30-60)+* MV pkE ?80.9 cm/s (60-130) MV mnPG ?2 mmHg ?MV pkA ? 112 cm/s Lat E' ?? Lat e ? 3.92 cm/s ? Lat E/E' ?? Lat E/e ? 20.6 ? Med E' ?? Med e ? 4.57 cm/s ? Med E/E' ?? Med E/e ? 17.7 ? Aortic Valve ?? Aortic Valve Ar ??1.49 ?Aortic Valve Ve ?? 0.7 ? AV DI ?? Value ?0.7 ? SANTOS (VTI) Index ?? Value ? 1.49 ? LV Mass 2D ?? Value ?211 g ? LV Mass Doomt7A ?? Value ?132 g/m2 ? RA Volume ?? Atrial Cobb ?? 5.29 cm ? Atrial Cobb ?? 19.8 cm2 Atrial Cobb ?? 58.8 ml ? SV (LVOT) Index ?? Value ? 39 ml ?2D Left Ventricle ?? LVIDd ? 5.04 cm ?? (3.6-5.2) LV EF(Bi-Plane) ?40 % ?(55-75)* LVIDs ? 4.15 cm ?? (2.3-3.9)* LVPW ?? LVPWd ? 1.11 cm ? Ventricular Septum ?? IVSd ? 1.1 cm ? Left Atrium ?? LA a-p ?2.14 cm ?? (2.8-3.4)* Aorta ?? Ao Rtd ?3.46 cm ?? (zsc 3.1)* Ao Asc ?3.42 cm ?? (zsc 4.5)* LVOT ?? LVOT ?2.02 cm ? Ratios ?? IVS LA Biplane LAVol I BP ?45.1 ml/m2 ? Right Ventricle ?? Right Ventricle ?? 3.3 cm ? Major [place] ?5.71 cm ?? Right Ventricul ?10 cm2 ?Right Ventricle ??1.63 cm ?? Right Ventricul ??7.36 cm2 ?Right Ventricul ??26.4 % ?MMODE Left Ventricle ?? LVIDd ? 4.94 cm ?? (zsc 0.5) LV%fs ? 18.8 % ?(28-41)* LVIDs ? 4.01 cm ?? (zsc 2.8)* LV EF ? 38.8 % ?(45-90)* TA ?? Tricuspid Annul ??1.82 cm ? <Electronic Signature> 04/13/2023 09:50 PM Belinda Mckenzie M.D. Procedure Note Belinda Mckenzie MD - 04/13/2023 Echocardiography Report Pat.Name: KENDY SALCIDO Pat.ID: [id number] .Date: 04/13/2023 Refer.: [id number] ROSCOE Solis EWDPROV EWDPROV Exam Time: 9:34:00 AM Study Type:ECHO WITH CARDIAC DOPPLER COMP Height: 62 in Weight: 131 lb BSA: 1.6 m2 Age: 8 1945,77Y Sex: F BP: 140/66 HR: 72 bpm Sonogrphr: Teir Vcaa [facility] Pat. Stat.:Inpatient Room: 2 CPT - 4: 87202 Reason for Study:SVT Procedures: 2D, M-mode, Doppler, Color Flow, Portable ++++++++++++++++++++++++++++++++++++ SUMMARY: ++++++++++++++++++++++++++++++++++++ The left ventricular size is normal. Mild [...] pressure. Mild to moderate central aortic regurgitation. ++++++++++++++++++++++++++++++++++++ FINDINGS: ++++++++++++++++++++++++++++++++++++ LV: The left ventricular size is normal. The left ventricular systolic function is moderately depressed. Estimated left ventricular ejection fraction is 30 - 35%. Mild eccentric left ventricular hypertrophy. Left ventricular diastolic function is abnormal (grade 2 - pseudonormal pattern). WM: Moderate global hypokinesis is noted. RV: The right ventricular size is normal. Right ventricular systolic function is normal. LA: The left atrial volume is moderately increased RA: Right atrial size is normal. ENDY: No evidence of pericardial effusion. AO: The aortic root measures 3.5 cm. The proximal ascending aorta measures 3.4cm. PA: Unable to reliably quantitate pulmonary systolic pressure. SVn: Inferior vena cava is not dilated and shows >50% collapse with respiration consistent with normal right atrial pressure. AV: The aortic valve is trileaflet. No evidence of aortic valve stenosis. Mild to moderate central aortic regurgitation. PHT > 600 ms MV: Mild mitral regurgitation. No evidence of mitral stenosis. PV: No evidence of pulmonic regurgitation. Pulmonic valve not well visualized. TV: A trace of tricuspid regurgitation. No evidence of tricuspid valve stenosis. ++++++++++++++++++++++++++++++++++++ MEASUREMENTS: ++++++++++++++++++++++++++++++++++++ DOPPLER LVOT LVOTpkPG 3 mmHg LVOTmnPG 2 mmHg LVOTpkVel 88.7 cm/s (70-110)+ LVOT SV 62 ml LVOT TVI 19.4 cm AV Forward Flow AV TVI 26 cm AV pkPG 6 mmHg AV pkVel 127 cm/s (100-170)+ Area (TVI) 2.39 cm2 (3-5)* AV mnVel 88.8 cm/s Area (Minesh) 2.23 cm2 (3-5)* AV mnPG 4 mmHg AV Regurg Flow AV pkVel 451 cm/s AV P1/2t 873 msec AV pkPG 81 mmHg MV Forward Flow MV DeTm 275 msec MV pkPG 4 mmHg MVA P1/2t 2.29 cm2 (4-6)* MV E/A 0.7 MV P1/2t 96 msec (30-60)+* MV pkE 80.9 cm/s (60-130) MV mnPG 2 mmHg MV pkA 112 cm/s Lat E' Lat e 3.92 cm/s Lat E/E' Lat E/e 20.6 Med E' Med e 4.57 cm/s Med E/E' Med E/e 17.7 Aortic Valve Aortic Valve Ar 1.49 Aortic Valve Ve 0.7 AV DI Value 0.7 SANTOS (VTI) Index Value 1.49 LV Mass 2D Value 211 g LV Mass [id number] Value 132 g/m2 RA Volume Atrial Cobb 5.29 cm Atrial Cobb 19.8 cm2 Atrial Cobb 58.8 ml SV (LVOT) Index Value 39 ml 2D Left Ventricle LVIDd 5.04 cm (3.6-5.2) LV EF(Bi-Plane) 40 % (55-75)* LVIDs 4.15 cm (2.3-3.9)* LVPW LVPWd 1.11 cm Ventricular Septum IVSd 1.1 cm Left Atrium LA a-p 2.14 cm (2.8-3.4)* Aorta Ao Rtd 3.46 cm (zsc 3.1)* Ao Asc 3.42 cm (zsc 4.5)* LVOT LVOT 2.02 cm Ratios IVS LA Biplane LAVol I BP 45.1 ml/m2 Right Ventricle Right Ventricle 3.3 cm Major [place] 5.71 cm Right Ventricul 10 cm2 Right Ventricle 1.63 cm Right Ventricul 7.36 cm2 Right Ventricul 26.4 % MMODE Left Ventricle LVIDd 4.94 cm (zsc 0.5) LV%fs 18.8 % (28-41)* LVIDs 4.01 cm (zsc 2.8)* LV EF 38.8 % (45-90)* TA Tricuspid Annul 1.82 cm <Electronic Signature> 04/13/2023 09:50 PM Belinda Mckenzie M.D. Nomi Rodriguez MD ECHO Final Result * CTA CHEST PE PROTOCOL (04/13/2023 10:54 AM ARC WELDER) Anatomical Region Laterality Modality Chest Computed Tomogra phy 04/13/2023 1:44 PM ARC WELDER Impressions 04/13/2023 1:47 PM ARC WELDER IMPRESSION: 1. ??No acute pulmonary embolism. 2. ??Coronary artery disease. Ordered By: RON MINER Interpreted By: Juanito Broderick MD, 04/13/2023 1:44 PM Narrative 04/13/2023 1:47 PM ARC WELDER EXAMINATION: CTA CHEST WITH CONTRAST, PULMONARY EMBOLISM CLINICAL HISTORY: PULMONARY EMBOLISM (PE) SUSPECTED, POSITIVE D- DIMER.palpitations and intermittent episodes of lightheadedness and dizziness . COMPARISON: None. TECHNIQUE: Computed tomography angiography was performed of the chest after administration of intravenous contrast, 80 mL Isovue-370, according to pulmonary embolism protocol. Maximum intensity projection images were obtained. A dose lowering technique was used for this procedure, which may include, but is not limited to, dose reduction technique, automated exposure control, the use of iterative reconstruction, and ALARA (As Low As Reasonably Achievable) / Image Gently techniques. FINDINGS: Expiration images chest. No pneumothorax. No pleural effusion. Dependent atelectasis. Calcified granuloma. No suspicious lung mass or consolidation. Coronary artery disease. Tortuous atherosclerotic thoracic aorta. No pathologic filling defects in the pulmonary artery. Calcified mediastinal and hilar lymph nodes. Old rib fracture. Procedure Note Juanito Broderick MD - 04/13/2023 EXAMINATION: CTA CHEST WITH CONTRAST, PULMONARY EMBOLISM CLINICAL HISTORY: PULMONARY EMBOLISM (PE) SUSPECTED, POSITIVED- DIMER.palpitations and intermittent episodes of lightheadedness anddizziness . COMPARISON: None. TECHNIQUE: Computed tomography angiography was performed of the chestafter administration of intravenous contrast, 80 mL Isovue-370, accordingto pulmonary embolism protocol. Maximum intensity projection images wereobtained. A dose lowering technique was used for this procedure, which mayinclude, but is not limited to, dose reduction technique, automatedexposure control, the use of iterative reconstruction, and ALARA (As LowAs Reasonably Achievable) / Image Gently techniques. FINDINGS: Expiration images chest. No pneumothorax. No pleural effusion. Dependentatelectasis. Calcified granuloma. No suspicious lung mass orconsolidation. Coronary artery disease. Tortuous atherosclerotic thoracicaorta. No pathologic filling defects in the pulmonary artery. Calcifiedmediastinal and hilar lymph nodes. Old rib fracture. IMPRESSION: 1. No acute pulmonary embolism. 2. Coronary artery disease. Ordered By: RON MINER Interpreted By: Juanito Broderick MD, 04/13/2023 1:44 PM Ron Miner MD CT Final Result * (ABNORMAL) D-DIMER, QUANTITATIVE (04/13/2023 6:17 AM ARC WELDER) Pathologist [facility] D-DIMER 779(H) 0 - 500 ng{FEU}/mL 04/13/2023 7:17 AM [facility] EXCLUSION STATEMENT 04/13/2023 7:17 AM [facility] Comment: D-Dimer values less than or equal to 500 ng/mL FEU have a negative predictive value of >95% for exclusion of deep vein thrombosis and pulmonary embolism. In patients over 50 (who tend to have higher normal baseline D-Dimer values), recent studies suggest age-adjusted D-Dimer cutoff values (calculated as: age [years] x 10 ng/mL) result in equivalent outcomes and no additional false negative findings. 04/13/2023 6:17 AM ARC WELDER Nomi Rodriguez MD LABORATORY Final Result Performing Organization Address [facility] Co de Phone Number [facility] [address] [place] [address], [id number] * HEMOGLOBIN, GLYCATED (04/13/2023 6:17 AM ARC WELDER) Pathologist [facility] HGB A1C 4.9 <5.7 % 04/13/2023 7:46 AM ARC WELDER [facility] ESTIMATED AVG GLUCOSE 94 74 - 114 MG/DL 04/13/2023 7:46 AM [facility] 04/13/2023 6:17 AM ARC WELDER Nomi Rodriguez MD LABORATORY Final Result Performing Organization Address [facility] Co de Phone Number [facility] [address] [place] [address], [id number] * MAGNESIUM (04/13/2023 6:17 AM ARC WELDER) Pathologist [facility] MAGNESIUM 2.1 1.6 - 2.6 MG/DL 04/13/2023 7:19 AM [facility] 04/13/2023 6:17 AM ARC WELDER Nomi Rodriguez MD LABORATORY Final Result [facility] [address] [place] [address], [id number] * (ABNORMAL) BASIC METABOLIC PANEL (04/13/2023 6:17 AM ARC WELDER) Pathologist [facility] SODIUM S/P/B 140 136 - 145 MMOL/L 04/13/2023 7:19 AM [facility] POTASSIUM S/P/B 3.9 3.5 - 5.1 MMOL/L 04/13/2023 7:19 AM [facility] CHLORIDE S/P/B 108(H) 98 - 107 MMOL/L 04/13/2023 7:19 AM [facility] CO2 25.4 21.0 - 32.0 MMOL/L 04/13/2023 7:19 AM [facility] GLUCOSE 87 74 - 106 MG/DL 04/13/2023 7:19 AM [facility] BUN 17 7 - 18 MG/DL 04/13/2023 7:19 AM [facility] CREATININE S/P/B 0.76 0.55 - 1.02 MG/DL 04/13/2023 7:19 AM [facility] CALCIUM S/P/B 8.2(L) 8.5 - 10.1 MG/DL 04/13/2023 7:19 AM [facility] ANION GAP 6.6 5.0 - 15.0 MMOL/L 04/13/2023 7:19 AM [facility] OSMOLALITY (CALC) 291 MOSM/KG 023 7:19 AM [facility] Comment:REFERENCE RANGE NOT ESTABLISHED GFR ESTIMATE 81(L) >90 ML/MIN/1. 73 M2 04/13/2023 7:19 AM ARC WELDER [facility] GFR NOTES GFR REFERENCE S: 04/13/2023 7:19 AM ARC WELDER [facility] Comment: THE ESTIMATED GFR [...] ml/min/1.73 m2 G5,KIDNEY FAILURE: <15 ml/min/1.73 m2 04/13/2023 6:17 AM ARC WELDER Nomi Rodriguez MD LABORATORY Final Result [facility] [address] [place] [address], [id number] * (ABNORMAL) CBC W/DIFF AUTOMATED (04/13/2023 6:17 AM ARC WELDER) WBC 3.69(L) 4.00 - 10.80 x10'3/uL 04/13/2023 6:51 AM ARC WELDER [facility] RBC 3.66(L) 4.10 - 5.40 x10'6/uL 04/13/2023 6:51 AM ARC WELDER [facility] HGB 11.7(L) 12.0 - 16.0 G/DL 04/13/2023 6:51 AM ARC WELDER [facility] HCT 35.5(L) 36.0 - 47.0 % 04/13/2023 6:51 AM ARC WELDER [facility] MCV 97.0 78.0 - 100.0 FL 04/13/2023 6:51 AM ARC WELDER [facility] MCH 32.0(H) 27.0 - 31.0 PG 04/13/2023 6:51 AM ARC WELDER [facility] MCHC 33.0 33.0 - 36.0 G/DL 04/13/2023 6:51 AM [facility] RDW 13.3 11.5 - 14.5 % 04/13/2023 6:51 AM [facility] PLT 184 150 - 350 x10'3/uL 04/13/2023 6:51 AM ARC WELDER [facility] MPV 10.3 7.4 - 10.4 FL 04/13/2023 6:51 AM [facility] ABS. NEUTROPHILS 2.00 1.60 - 8.30 x10'3/uL 04/13/2023 6:51 AM [facility] ABS. LYMPHOCYTES 1.22 0.80 - 4.70 x10'3/uL 04/13/2023 6:51 AM ARC WELDER [facility] ABS. MONOCYTES 0.39 0.00 - 1.50 x10'3/uL 04/13/2023 6:51 AM ARC WELDER [facility] ABS. EOSINOPHILS 0.04 0.00 - 0.40 x10'3/uL 04/13/2023 6:51 AM ARC WELDER [facility] ABS. BASOPHILS 0.03 0.00 - 0.20 x10'3/uL 04/13/2023 6:51 AM [facility] ABS. IMMATURE GRANULOCYTES 0.01 0.00 - 0.03 x10'3/uL 04/13/2023 6:51 AM ARC WELDER [facility] ABS. NUCLEATED RBC'S 0.00 0.0 x10'3/uL 04/13/2023 6:51 AM [facility] 04/13/2023 6:17 AM ARC WELDER us Nomi Rodriguez MD LABORATORY Final Result [facility] [address] [place] [address], [phone] * ECG 12 lead (04/12/2023 9:33 PM ARC WELDER) 04/12/2023 9:33 PM ARC WELDER Narrative [facility] - 04/13/2023 6:11 AM ARC WELDER ? [facility] ?[address] [place], [place] ??[address] ? Test Date: ?2023-04-12 Pat Name: ? KENDY SALCIDO ? Department: ?? 1 ? Room: ? 622AA Gender: ? Female ? Licensed Marriage And Family Therapist: ?? Micah : ?1945 ? Requested By: NOMI RODRIGUEZ Order Number: [id number] ? Reading MD: ?? Sina Ponce ? Measurements Intervals ?[place] ? Rate: ? 70 ? P: ?61 WV: ? 153 ?QRS: ?35 QRSD: ? 93 ? T: ?53 QT: ? 426 ? QTc: ?462 ? Interpretive Statements SINUS RHYTHM MODERATE VOLTAGE CRITERIA FOR LVH, CONSIDER NORMAL VARIANT MINIMAL ST DEPRESSION WELDER Procedure Note Sina Ponce MD - 04/13/2023 [place] [address] [place] [address] Test Date: 2023-04-12 Pat Name: KENDY SALCIDO Department: 1 Room: [facility] Gender: Female Licensed Marriage And Family Therapist: Micah : 1945 Requested By: NOMI RODRIGUEZ Order Number: [id number] Gerard MD: Sina Ponce Measurements Intervals [place] Rate: 70 P: 61 WV: 153 QRS: 35 QRSD: 93 T: 53 QT: 426 QTc: 462 Interpretive Statements SINUS RHYTHM MODERATE VOLTAGE CRITERIA FOR LVH, CONSIDER NORMAL VARIANT MINIMAL ST DEPRESSION WELDER us Nomi Rodriguez MD ECG ORDERABLES Final Result [facility] documented in this encounter Visit Diagnoses Diagnosis SVT (supraventricular tachycardia) ([facility]/HCC)- Primary Other specified cardiac dysrhythmias documented in this encounter Admitting Diagnoses Diagnosis SVT (supraventricular tachycardia) ([facility]) Other specified cardiac dysrhythmias documented in this encounter Administered Medications Inactive Administered Medications - up to 3 most recent administrations Medication Order MAR Action Action Date Dose Rate Site acetaminophen (TYLENOL) tablet 650 mg 650 mg, Oral, Every 6 hours PRN, Mild pain (Scale 1 - 3), Starting on Maria Luz 04/12/23 at 2110, Until Sun04/13/23 at 1622, Maximum dose of acetaminophen is 4000 mg from all sources in 24 hours. enoxaparin (LOVENOX) 40 MG/0.4ML syringe 40 mg 40 mg, Subcutaneous, Nightly (enoxaparin), First dose on Maria Luz 04/12/23 at 2130, Until Discontinued, Administer by deep SubQ injection alternating between the left or right anterolateral and left or right posterolateral abdominal wall. Given 04/12/2023 11:00 PM ARC WELDER 40 mg Right Lower Abdomen iopamidol (ISOVUE-370) 76 % injection 80 mL 80 mL, Intravenous, IMG once as needed, Contrast, 1 dose, Starting on Sun04/13/23 at 1054, Until Sun04/13/23 at 1055 Given 04/13/2023 10:55 AM ARC WELDER 80 mLs metoprolol tartrate (LOPRESSOR) tablet 12.5 mg 12.5 mg, Oral, 2 times daily, First dose on Maria Luz 04/12/23 at 2200, Until Discontinued Given 04/13/2023 8:07 AM ARC WELDER 12.5 mg Given 04/12/2023 10:58 PM ARC WELDER 12.5 mg ondansetron (ZOFRAN) injection 4 mg 4 mg, Intravenous, Every 8 hours PRN, Nausea, Vomiting, Starting on Maria Luz 04/12/23 at 2110, Until Sun04/13/23 at 1622, IV push over 2-5 minutes. documented in this encounter Active and Recently Administered Medications Times are shown in ARC WELDER. Scheduled Medication Order 04/11/2023 04/12/2023 04/13/2023 enoxaparin (LOVENOX) 40 MG/0.4ML syringe 40 mg(Linked Group 1) 40 mg, Subcutaneous, Nightly (enoxaparin), First dose on Maria Luz 04/12/23 at 2130, Until Discontinued, Administer by deep SubQ injection alternating between the left or right anterolateral and left or right posterolateral abdominal wall. 2300 (Given - Provider: Braydon Ngo RN) metoprolol tartrate (LOPRESSOR) tablet 12.5 mg 12.5 mg, Oral, 2 times daily, First dose on Maria Luz 04/12/23 at 2200, Until Discontinued 2258 (Given - Provider: Braydon Ngo RN - Comment: BP: 148/62HR: 71) 0807 (Given - Provider: Rhoda Rosas RN-LP) PRN Medication Order 04/11/2023 04/12/2023 04/13/2023 acetaminophen (TYLENOL) tablet 650 mg 650 mg, Oral, Every 6 hours PRN, Mild pain (Scale 1 - 3), Starting on Maria Luz 04/12/23 at 2110, Until Sun04/13/23 at 1622, Maximum dose of acetaminophen is 4000 mg from all sources in 24 hours. iopamidol (ISOVUE-370) 76 % injection 80 mL (COMPLETED) 80 mL, Intravenous, IMG once as needed, Contrast, 1 dose, Starting on Sun04/13/23 at 1054, Until Sun04/13/23 at 1055 1055 (Given - Provid er: Rosa Marcelo, RTR) ondansetron (ZOFRAN) injection 4 mg 4 mg, Intravenous, Every 8 hours PRN, Nausea, Vomiting, Starting on Maria Luz 04/12/23 at 2110, Until Sun04/13/23 at 1622, IV push over 2-5 minutes. Linked Groups Order Group 1: enoxaparin (LOVENOX) 40 MG/0.4ML syringe 40 mgJump to med 40 mg, Subcutaneous, Nightly (enoxaparin), First dose on Maria Luz 04/12/23 at 2130, Until Discontinued, Administer by deep SubQ injection alternating between the left or right anterolateral and left or right posterolateral abdominal wall. And Moderate Risk for VTE (COMPLETED) documented in this encounter Care Teams Bridges And Buildings Supervisor Relationship Specialty Start Date End Date Venice Estrada MD [address] [place] [address] [address] [place] [address] PCP - General FAMILY PRACTICE 04/12/23 documented as of this encounter
--- OUTSIDE RECORDS SUMMARY | 2024-04-27 15:47 | XMS_ITS | Encounter Summary ---
Author Organization [facility] Address [address] [place] [address]. [place] [address] [place] [address] Care Team Providers Care Conductor Freight Name Role Phone Davin Estrada MD Primary Care Provider Reason for Visit * Reason Onset Date Comments Schedule Test 04/19/2023 Encounter Details Date Type Department Care Team (Late st Contact Info) Description 04/19/2023 Telephone [facility] [address] [place] [address] Darell Garcia MD [address] [facility] [address] [address] Schedule Test Social History Tobacco Use Types Packs/Day Years Used Date Smoking Tobacco: Never Passive Smoke Exposure: Never Smokeless Tobacco: Never [facility] Utilities Answer Date Recorded In the [...] slept in a long-term (including now)? No 04/12/2023 Comments Unknown Sex and Gender Information Value Date Recorded Sex Assigned at Not on file Legal Sex Female 3:10 PM APARTMENT HOTEL MANAGER Gender Identity Not on file Sexual Orientation Not on file documented as of this encounter Functional Status * Are you deaf or do you have serious difficulty hearing Answer Date of Assessment Author Status No 04/12/2023 8:35 PM APARTMENT HOTEL MANAGER Trenton Ngo RN Active * Are you blind or do you have serious difficulty seeing, even when wearing glasses? Answer Date of Assessment Author Status No 04/12/2023 8:35 PM APARTMENT HOTEL MANAGER Trenton Ngo RN Active * Do you have serious difficulty walking or climbing stairs? Answer Date of Assessment Author Status No 04/12/2023 8:35 PM APARTMENT HOTEL MANAGER Trenton Ngo RN Active * Do you [...] in this encounter Progress Notes * Amna Lilly - 04/19/2023 9:31 AM CST 04/19/23 915am Called and spoke with pt. She is now scheduled for her ECHO on 07/18/23 @ 11am. Submitted prior auth as well. TMENT HOTEL MANAGER documented in this encounter Plan of Treatment Upcoming Encounters Date Type Department Care Team (Late st Contact Info) Description 02/12/2025 11:30 AM CDT Office Visit [facility]d [address] [place] [address] Jun Oscar, ELEVATOR ADJUSTER [address] [place] [address] documented as of this encounter Visit Diagnoses Not on filedocumented in this encounter Care Teams Conductor Freight Relationship Specialty Start Date End Date Davin Estrada MD [address] [place] [address] [address] [place] [address] PCP - General FAMILY PRACTICE 04/12/23 documented as of this encounter
--- OUTSIDE RECORDS SUMMARY | 2024-04-27 15:47 | XMS_ITS | Encounter Summary ---
Author Organization [facility] Address [address] [place] [address]. [place] [address] [place] [address] Care Team Providers Care Hearing Therapy Director Name Role Phone Davin Estrada MD Primary Care Provider [phone] Reason for Visit * Reason Onset Date Comments Blood Pressure 04/30/2023 Encounter Details Date Type Department Care Team (Late st Contact Info) Description 04/30/2023 Needish Message Enc [facility] [id number] [place] [address] Darell Garcia MD [address] [place] [address] [address] Cele Salcido blood pressure Social History Tobacco Use Types Packs/Day Years Used Date Smoking Tobacco: Never Passive Smoke Exposure: Never Smokeless Tobacco: Never Alcohol Use Standard Drinks/Week Comments Yes 0 (1 standard drink = 0.6 oz pur e alcohol) occasional wine C Utilities Answer Date Recorded In the past 12 months has e electric, gas, oil, or water [employer] threatened to shut off services in your [...] and heating? Not hard at all 04/27/2023 [facility] - Occupational Stress [...] on file Legal Sex Female 3:10 PM CLUTCH ASSEMBLER Gender Identity Not on file Sexual [...] Progress Notes * Shannon Baltazar RN - 04/30/2023 11:20 AM CST Spoke with Cele. She stated that the ER on Sunday, 04/27 had increased her entresto to BID due to elevated B/P. She stated that she did not take the 2nd dose last night as she thinks the entresto is making her feel week. Her B/P today is 155/83. She is concerned that her B/P is still elevated but does not wish to take entresto BID as to how it makes her feel. She did take it this morning and will continue taking it q day. She has cardiac cath scheduled for 05/04 here in [place] and hopes to have more answers after this test. She denies c/p, SOB. She states that she has been very sedentary as she is afraid to do to much because of her B/P CH ASSEMBLER * Shaun Johnson RN - 04/30/2023 7:16 AM CST Patient called and states she is a patient of Dr. Jama. She says her blood pressure on Sunday04/27/22 was 198/81. The patient went to the ER at [facility] because of this. She states that they increased her entresto to be taken twice daily. The patient took her blood pressure at 4 am this morning and it was 148/77. The patient then took her entresto and metoprolol. She rechecked her blood pressure right before calling and it was 154/83. The patient says she is not having any other symptomsbesides walking very slowly. She would like to discuss her blood pressure further with Dr. Jama's office. I told the patient the office won't be in until 8:00 am but I will send them a message that she would like a call back. Her call back number is [phone]. I also told the patient to seek care in the nearest ER for persistent or worsening symptoms including CP, SOB, feeling light headed ordizzy, or feeling like she might pass out or does pass out. Patient v/u and had no further questions. CH ASSEMBLER documented in this encounter Plan of Treatment Upcoming Encounters Date Type Department Care Team (Late st Contact Info) Description 02/12/2025 11:30 AM CDT Office Visit [facility] [address] [place] [address] Jun Oscar PARK INTERPRETIVE SPECIALIST [address] [place] [address] documented as of this encounter Visit Diagnoses Not on filedocumented in this encounter Care Teams Hearing Therapy Director Relationship Specialty Start Date End Date Davin Estrada MD [address] [place] [address] [address] [place] [address] PCP - General FAMILY PRACTICE 04/12/23 documented as of this encounter
--- OUTSIDE RECORDS SUMMARY | 2024-04-27 15:47 | XMS_ITS | Encounter Summary ---
Author Organization [facility] Address [facility] [place] [address] [place] [address] Care Team Providers Care Research Project Manager Name Role Phone Davin Estrada MD Primary Care Provider Reason for Visit * Reason Onset Date Comments Supraventricular Tachycardia 05/16/2023 Encounter Details Date Type Department Care Team (Late st Contact Info) Description 05/16/2023 Telephone [facility] [address] [place] [address] Judah House MD [address] [facility] [address] [place] [address] Supraventricular Tachycardia Social History Tobacco Use Types Packs/Day Years Used Date Smoking Tobacco: Never Passive Smoke Exposure: Never Smokeless Tobacco: Never Alcohol Use Standard Drinks/Week Comments Yes 0 (1 standard drink = 0.6 oz pur e alcohol) occasional wine C Utilities Answer Date Recorded In the past 12 months has e electric, gas, oil, or water [employer] threatened to shut off services in your [...] and heating? Not hard at all 04/27/2023 [facility] [place] of Occupat ional Health - Occupational Stress [...] on file Legal Sex Female 3:10 PM MOTOR WINDER Gender Identity Not on file Sexual Orientation [...] Progress Notes * Starr Stapleton RN - 05/16/2023 9:49 AM CST Pt called to report she went to the [facility] yesterday with SVT, heart rate 210. She converted backto sinus rhythm on her own. Informed her I will let Dr. Jama's office know. She has a planned SVT ablation in June. Informed her I am not sure if there are any sooner openings. Dr. House recommends increasing her Metoprolol to 25mg bid. Pt agrees. She is scheduled for C on 05/21. Received labs. Her cholesterol is elevated. Informed her we will address after her cath. If she has CAD, her LDL goal will be lower. Reviewed hospital labs. Her TSH is elevated. I encouraged her to call her PCP regarding this as shemay need treated for hypothyroidism. She agreed. R WINDER documented in this encounter Plan of Treatment Upcoming Encounters Date Type Department Care Team (Late st Contact Info) Description 02/12/2025 11:30 AM CDT Office Visit [facility] eld [address] [place] [address] Jun Oscar, SALON STYLIST [address] [place] [address] documented as of this encounter Visit Diagnoses Not on filedocumented in this encounter Care Teams Research Project Manager Relationship Specialty Start Date End Date Davin Estrada MD [address] [place] [address] [address] [place] [address] PCP - General FAMILY PRACTICE 04/12/23 documented as of this encounter
--- OUTSIDE RECORDS SUMMARY | 2024-04-27 15:47 | XMS_ITS | Encounter Summary ---
Author Organization [facility] Address [facility] [place] [address] [place] [address] Care Team Providers Care Wood Cabinet Finisher Name Role Phone Venice Estrada MD Primary Care Provider [phone] Reason for Referral * Imaging (Routine) - Closed Specialty Diagnoses / Procedures Referred By Contac t Referred To Contact RADIOLOGY Diagnoses Cardiomyopathy, unspecified type ([facility]/HCC [facility]) Procedures XA [facility] POSS Judah Youssef MD [address] [place] [address] Phone: tel: fax: Referral ID Status Reason Start Date Expiration Date Visits Re quested Visits Authorized [id number] Closed 05/04/2023 06/03/2024 1 1 IR MILLER Reason for Visit * Reason Comments Consult cardiomyopathy Encounter Details Date Type Department Care Team (Late st Contact Info) Description 05/04/2023 9:00 AM REPAIR MILLER Office Visit [facility] [address] [place] [address] Judah Youssef MD [address] [place] [address] Consult (cardiomyopathy) Social History Tobacco Use Types Packs/Day Years Used Date Smoking Tobacco: Never Passive Smoke Exposure: Never Smokeless Tobacco: Never Alcohol Use Standard Drinks/Week Comments Yes 0 (1 standard drink = 0.6 oz pur e alcohol) occasional wine [facility] Utilities Answer Date Recorded In the [...] and heating? Not hard at all 04/27/2023 [facility] [place] of Occupat ional Health - Occupational Stress [...] on file Legal Sex Female 3:10 PM REPAIR MILLER Gender Identity Not on file Sexual Orientation Not on file documented as of this encounter Last Filed Vital Signs Vital Sign Reading Time Taken Comments Blood Pressure 130/78 05/04/2023 8:22 AM REPAIR MILLER Pulse 74 05/04/2023 8:20 AM REPAIR MILLER Temperature - - Respiratory Rate 16 05/04/2023 8:20 AM REPAIR MILLER Oxygen Saturation 99% 05/04/2023 8:20 AM REPAIR MILLER Inhaled Oxygen Concentration - - Weight 59.7 kg (131 lb 9.6 oz) 05/04/2023 8:20 A M REPAIR MILLER Height 160 cm (5' 3 ) 05/04/2023 8:20 AM REPAIR MILLER Body Mass Index 23.31 05/04/2023 8:20 AM REPAIR MILLER documented in this encounter Functional Status * Are you deaf or do you have serious difficulty hearing Answer Date of Assessment Author Status No 04/27/2023 11:00 PM REPAIR MILLER Pia Chowdary RN Active * Are you blind or do you have serious difficulty seeing, even when wearing glasses? Answer Date of Assessment Author Status No 04/27/2023 11:00 PM REPAIR MILLER Pia Chowdary RN Active * Do you have serious difficulty walking or climbing stairs? Answer Date of Assessment Author Status No 04/27/2023 11:00 PM REPAIR MILLER Pia Chowdary RN Active * Do you have difficulty dressing or bathing? Answer Date of Assessment Author Status No 04/27/2023 11:00 PM REPAIR MILLER Pia Chowdary RN Active * Because of a physical, mental, or emotional condition, do you have difficulty doing errands alone such as visiting a doctor's office or shopping? Answer Date of Assessment Author Status No 04/27/2023 11:00 PM REPAIR MILLER Pia Chowdary RN Active documented as of this encounter Mental Status * Because of a physical, mental, or emotional condition, do you have serious difficulty concentrating, remembering, or making decisions? Answer Entry Date Author Status No 04/27/2023 11:00 PM Pia Hamilton RN Active documented in this encounter Progress Notes * Judah Youssef MD - 05/04/2023 9:00 AM CST Reason for Visit: Consult (cardiomyopathy) History of Present Illness: Recommendations and Plan: Medications: Current Outpatient Medications: Acetaminophen (TYLENOL ARTHRITIS PAIN OR), Take 2 tablets by mouth daily., Disp: , Rfl: aspirin EC (ECOTRIN) 81 MG tablet, Take 1 tablet (81 mg total) by mouth daily., Disp: , Rfl: bisacodyl EC (DULCOLAX) 5 MG Tab EC tablet, Take 2 tablets (10 mg total) by mouth nightly as needed. at bedtime., Disp: , Rfl: Calcium Citrate 250 MG Tab, Take 2 tablets by mouth daily., Disp: , Rfl: melatonin 10 MG tablet, Take 1 tablet (10 mg total) by mouth nightly as needed for Sleep., Disp: , Rfl: metoprolol succinate ER (TOPROL-XL) 25 MG 24 hr tablet, Take 1 tablet (25 mg total) by mouth daily.(Patient taking differently: Take 1 tablet (25 mg total) by mouth 2 (two) times daily.), Disp: 30 tablet, Rfl: 3 vitamin ( PLUS) 27-1 MG tablet, Take 1 tablet by mouth daily., Disp: , Rfl: sacubitril-valsartan (ENTRESTO) 24-26 MG tablet, Take 1 [...] tachycardia) Past Surgical History: Procedure Laterality Date TOTAL ABDOM HYSTERECTOMY Social History Tobacco Use Smoking status: Never Passive exposure: Never Smokeless tobacco: Never Substance Use Topics Alcohol use: Yes Comment: occasional wine Drug use: Never Family [...] and snoring. Cardiovascular: See HPI. Positive for palpitations. Negative for chest pain and PND. Gastrointestinal: Negative for blood in stool and melena. Genitourinary: Negative for dysuria. Musculoskeletal: Negative for myalgias and new or worsening joint stiffness/pain. Skin: Negative for rash. Neurological: Negative for tingling/numbness and focal weakness. Endo/Heme/Allergies: Negative for new or significant bruising/bleeding and polydipsia. Psychiatric/Behavioral: Negative for depression and new or significant memory loss. Vitals: 05/04/23 0820 05/04/23 0822 BP: 132/84 130/78 Patient Position: Sitting Sitting BP Location: Left arm Right arm Pulse: 74 Weight: 59.7 kg (131 lb 9.6 oz) Height: 1.6 m (5' 3 ) Body mass index is 23.31 kg/m??. Cardiac Exam Rate/Rhythm: Normal rate and [...] motor skills. Normal gait. Comments: Diagnoses/Impression: 1. Cardiomyopathy, unspecified type (HHS/HCC) (CMS/HCC) CBC W/DIFF AUTOMATED BASIC METABOLIC PANEL LIPID PANEL XA [facility] POSS 2. Nonrheumatic aortic valve insufficiency 3. Hyperlipidemia, unspecified hyperlipidemia type LIPID PANEL 4. Primary hypertension 5. SVT (supraventricular tachycardia) 6. Pre-procedural laboratory examination CBC W/DIFF AUTOMATED BASIC METABOLIC PANEL Referring Provider: No ref. provider found PCP: VENICE ESTRADA MD IR MILLER * Judah Youssef MD - 05/04/2023 12:00 AM CST Patient Name: KENDY CRAIG Date of : 1945 Account: [id number] Facility: [facility] Location: [facility] Date of Service: 05/04/2023 Visit HISTORY OF PRESENTING ILLNESS: Mrs. Craig is referred for cardiovascular evaluation. She is accompanied today by her who was present during the interview at her request. She was in her usual state of health until early March. She started experiencing palpitations which were sporadic and unrelated to physical exertion. She subsequently had a significant episode prompting admission to the hospital. She was noted to have paroxysmal supraventricular tachycardia. Shewill undergo ablation this coming June. Echocardiography performed during hospitalization demonstrated an ejection fraction of 30-35% with mild to moderate aortic insufficiency. She has been on therapy for hypertension with Losartan for the last year and a half or so. She is not known to be diabetic or hyperlipidemic. She has never smoked. There is no history of clinical congestive heart failure. She denies symptoms of angina, dyspnea on exertion, paroxysmal nocturnal dyspnea or orthopnea. She has remained quite compliant to diet and physical exercise. She routinely walks and participates in physical exercise most days of the week. Her other past history is significant for ovarian cancer diagnosed when she was 40 years old. She has had no recurrence. She was seen by Dr. Jama. He had initiated guideline-directed medical therapy for cardiomyopathy. He switched her to Metoprolol Succinate and Entresto. She tried to increase her doses of both Metoprolol and Entresto. She could not tolerate the higher doses of both medications. She felt lightheaded. She has backed off to Metoprolol Succinate 25 mg p.o. daily. She inadvertently has been taking Entresto 24-26 mg once daily. On review of her records, it does not appear that she has had a recent lipid profile. An ECG from April 27, 2023 demonstrates sinus rhythm with left atrial abnormality. No significant ST or T-wave abnormality is noted. IMPRESSION: Cardiomyopathy, etiology undetermined. She has NYHA class I symptoms. I have recommended cardiac catheterization and coronary angiography in order to define coronary anatomy. Potential risks, benefits and alternatives were discussed in detail. She agrees to undergo the procedure. Informed consent was obtained. We will schedule her as soon as possible as an outpatient at a mutually convenient time. She will continue guideline-directed medical therapy for cardiomyopathy. She will take Entresto on a b.i.d. dosing. We will give her a call in a week or two and then attempt increasing the dose of Metoprolol Succinate initially. I will then try to re-uptitrate the dose of Entresto moving forward. Iwill arrange for her to have a lipid profile along with her pre-cath laboratory data. She will have a repeat echocardiogram to reassess LV function after 3 months of guideline-directed medical therapy. I have recommended she stay the course with her current diet and exercise regimen. Further workup and therapy will of course be dependent on clinical course and findings on cardiac catheterization. Signature/Date: JUDAH YOUSSEF MD #[id number] /SATHISH IR MILLER documented in this encounter Plan of Treatment Upcoming Encounters Date Type Department Care Team (Late st Contact Info) Description 02/12/2025 11:30 AM CDT Office Visit [facility] eld [address] [place] [address] Jun Oscar, UX ENGINEER [address] [place], [place] [id number] documented as of this encounter Results * XA [facility] POSS (05/21/2023 1:30 PM REPAIR MILLER) Anatomical Region Laterality Modality Cardiac Supervisor Stitching Department 05/21/2023 12:3 0 PM REPAIR MILLER Judah Youssef MD [facility] Final Result * LIPID PANEL (05/15/2023) CHOLESTEROL 244 HDL 67 TRIGLYCERIDES 99 NON HDL CHOLESTEROL 177 CHOL/HDL RATIO 3.6 LDL (CALCULATED) 156 05/15/2023 Judah Youssef MD LABORATORY Final Result * BASIC METABOLIC PANEL (05/15/2023) SODIUM S/P/B 139 135 - 146 POTASSIUM S/P/B 4.0 3.5 - 5.3 CO2 28 20 - 32 CHLORIDE S/P/B 103 98 - 110 GLUCOSE 81 65 - 99 mg/dL CALCIUM S/P/B 9.1 8.6 - 10.4 BUN 20 7 - 25 CREATININE S/P/B 0.79 0.6 - 1.0 05/15/2023 Judah Youssef MD LABORATORY Final Result * (ABNORMAL) CBC W/DIFF AUTOMATED (05/15/2023) WBC [...] ABS. BASOPHILS 31 0 - 200 05/15/2023 Judah Lacy [facility] Final Result documented in this encounter Visit Diagnoses Diagnosis Cardiomyopathy, unspecified type ([facility])- Primary Nonrheumatic aortic valve insufficiency Aortic valve disorders Hyperlipidemia, unspecified hyperlipidemia type Primary hypertension Unspecified essential hypertension SVT (supraventricular tachycardia) ([facility]) Other specified cardiac dysrhythmias Pre-procedural laboratory examination documented in this encounter Care Teams Wood Cabinet Finisher Relationship Specialty Start Date End Date Venice Estrada MD [address] [place] [address] [address] [place] [address] PCP - General FAMILY PRACTICE 04/12/23 documented as of this encounter
--- OUTSIDE RECORDS SUMMARY | 2024-04-27 15:47 | XMS_ITS | Encounter Summary ---
Author Organization [facility] Address [facility] [place] [address] [place] [address] Care Team Providers Care Senior Sales Assistant Name Role Phone Davin Estrada MD Primary Care Provider Encounter Details Date Type Department Care Team (Late st Contact Info) Description 05/16/2023 Orders Only [facility] [address] [place] [address] Judah House MD [address] [facility] [address] [place] [address] Social History Tobacco Use Types Packs/Day Years Used Date Smoking Tobacco: Never Passive Smoke Exposure: Never Smokeless Tobacco: Never Alcohol Use Standard Drinks/Week Comments Yes 0 (1 standard drink = 0.6 oz pur e alcohol) occasional wine [facility] Utilities Answer Date Recorded In the past 12 months has e electric, gas, oil, or water [employer] threatened to shut off services in your [...] and heating? Not hard at all 04/27/2023 [facility] [place] of Occupat ional Health - Occupational Stress [...] on file Legal Sex Female 3:10 PM WET PAN MIXER Gender Identity Not on file Sexual [...] Description 02/12/2025 11:30 AM CDT [facility] [address] [place] [address] Jun Oscar, BUS OPERATOR [address] [place] [address] documented as of this encounter Visit Diagnoses Diagnosis SVT (supraventricular tachycardia) ([facility]/HCC [facility]/HCC) Other specified cardiac dysrhythmias documented in this encounter Care Teams Senior Sales Assistant Relationship Specialty Start Date End Date Davin Estrada MD [address] [place] [address] [address] [place] [address] PCP - General FAMILY PRACTICE 04/12/23 documented as of this encounter
--- OUTSIDE RECORDS SUMMARY | 2024-04-27 15:47 | XMS_ITS | Encounter Summary ---
Author Organization [facility] Address [address] [place] [address]. [place], [place] [address] [place] [address] Care Team Providers Care Powerplant Operator Name Role Phone Davin Estrada MD Primary Care Provider [phone] Encounter Details Date Type Department Care Team (Latest Contact Info) Description 04/27/2023 Travel Social History Tobacco Use Types Packs/Day Years Used Date Smoking Tobacco: Never Passive Smoke Exposure: Never Smokeless Tobacco: Never Alcohol Use Standard Drinks/Week Comments Yes 0 (1 standard drink = 0.6 oz pur e alcohol) occasional wine [facility] Utilities Answer Date Recorded In the past 12 months has e [employer], gas, oil, or water [employer] threatened to shut off services in your [...] and heating? Not hard at all 04/27/2023 [facility] [place] of Occupat ional Health - Occupational Stress [...] Legal Sex Female 3:10 PM SOLAR SALES Gender Identity Not on file Sexual Orientation Not on file documented as of this encounter Functional Status * Question Answer Date of Assessment Author Status Do you have serious difficulty walking or climbing stairs? No 04/27/2023 11:00 PM Abi Hamilton, RN Active * Question Answer Date of Assessment Author Status Do you have difficulty dressing or bathing? No 04/27/2023 11:00 PM Leydi Hamilton R, RN Active Because of a physical, mental, [...] 02/12/2025 11:30 AM CDT [facility] [address] [place] [address] Jun Oscar, JEWELRY SALES COORDINATOR [address] [place] [address] documented as of this encounter Visit Diagnoses Not on filedocumented in this encounter Care Teams Powerplant Operator Relationship Specialty Start Date End Date Davin Estrada MD [address] [address] [address] [place] [address] PCP - General FAMILY PRACTICE 04/12/23 documented as of this encounter
--- OUTSIDE RECORDS SUMMARY | 2024-04-27 15:47 | XMS_ITS | Encounter Summary ---
Author Organization [facility] Address [facility] [place] [address] [place] [address] Care Team Providers Care Prorate Clerk Name Role Phone Davin Estrada MD Primary Care Provider Lee Villaseñor MD Unavailable Darell Garcia MD Unavailable [phone] Jun Oscar BULLION WEIGHER Unavailable [phone] Judah House MD Unavailable [phone] Encounter Details Date Type Department Care Team (Late st Contact Info) Description 04/27/2023 MyChart Message [facility] [address] [place] [address] Darell Garcia MD [address] [facility] [address] [id number] Cele Salcido blood pressure Social History Tobacco Use Types Packs/Day Years Used Date Smoking Tobacco: Never Passive Smoke Exposure: Never Smokeless Tobacco: Never Alcohol Use Standard Drinks/Week Comments Yes 0 (1 standard drink = 0.6 oz pur e alcohol) occasional wine C Utilities Answer Date Recorded In the past 12 months has [employer], gas, oil, or water [employer] threatened to shut off services in your [...] and heating? Not hard at all 04/27/2023 [facility] of Occupat ional Health - [...] [place] [facility])? No 04/27/2023 Comments Unknown Sex and Gender Information Value Date Recorded Sex Assigned at Not on file Legal Sex Female 3:10 PM HALL TENDER Gender Identity Not on file Sexual Orientation Not on file documented as of this encounter Functional Status * Question Answer Date of Assessment Author Status Do you have serious difficulty walking or climbing stairs? No 04/27/2023 11:00 PM HALL TENDER Abi Chowdary RN Active * Question Answer Date of Assessment Author Status Do you have difficulty dressing or bathing? No 04/27/2023 11:00 PM HALL TENDER Leydi Chowdary RN Active Because of a physical, mental, [...] or making decisions? No 04/27/2023 11:00 PM HALL TENDER Pia Chowdary RN Active * Because of a physical, mental, or emotional condition, do you have serious difficulty concentrating, remembering, or making decisions? Answer Entry Date Author Status No 04/12/2023 8:35 PM Trenton Taylor RN Active documented in this encounter Plan of Treatment Upcoming Encounters Date Type Department Care Team (Late st Contact Info) Description 02/12/2025 11:30 AM CDT Office Visit [facility] eld [address] [place] [address] Jun Oscar, BULLION WEIGHER [address] [place] [address] documented as of this encounter Visit Diagnoses Not on filedocumented in this encounter Care Teams Prorate Clerk Relationship Specialty Start Date End Date Davin Estrada MD [address] [place] [address] [address] [place] [id number] PCP - General FAMILY PRACTICE 04/12/23 Lee Villaseñor MD [address] [place] [address] Consulting Physician INTERNAL MEDICINE 05/28/23 Darell Garcia MD [address] [place] [address] Consulting Physician CLINICAL CARDIAC ELECTROPHYSIOLOGY 02/08/24 Jun Oscar NP [address] [place] [address] Nurse Practitioner NURSE PRACTITIONER 02/08/24 Judah House MD [address] [place] [phone] Consulting Physician INTERVENTIONAL CARDIOLOGY 02/12/24 documented as of this encounter
--- OUTSIDE RECORDS SUMMARY | 2024-04-27 15:47 | XMS_ITS | Encounter Summary ---
Author Organization [facility] Address [address] [place] [address]. [place] [address] [place] [address] Care Team Providers Care Deboning Team Leader Name Role Phone Davin Estrada MD Primary Care Provider Reason for Visit * Reason Onset Date Comments Appointment Request 04/17/2023 Encounter Details Date Type Department Care Team (Late st Contact Info) Description 04/17/2023 Telephone [facility] ld [address] [place] [address] Darell Garcia MD [address] [place] [address] [place] [address] Appointment Request Social History Tobacco Use Types Packs/Day Years Used Date Smoking Tobacco: Never Passive Smoke Exposure: Never Smokeless Tobacco: Never [facility] Utilities Answer Date Recorded In [...] Legal Sex Female 3:10 PM CUTTER AND PASTER PRESS CLIPPINGS Gender Identity Not on file Sexual Orientation Not on file documented as of this encounter Functional Status * Are you deaf or do you have serious difficulty hearing Answer Date of Assessment Author Status No 04/12/2023 8:35 PM CUTTER AND PASTER PRESS CLIPPINGS Trenton Ngo RN Active * Are you [...] Progress Notes * Shannon Baltazar RN - 04/17/2023 12:33 PM CST Spoke with patient . Appointment made for 04/18 at 0900. Patient verbalizes understanding ER AND PASTER PRESS CLIPPINGS * Dee Dee Walton - 04/17/2023 12:09 PM CST PCCLVOICEMAILMESSAGEPCCL VOICE MAIL VM DATE/TIME:04.17.23 11:36 am CALLER: Cele I saw Dr. Darell Jama on sun and he wants me to set up an appt for a visit in 1 week, if you could give me a call at [phone], thank you bye. REQUEST HANDLED AND HOW: Message has been routed to the nurse / special education secretary. IF NOT HANDLED, ENCOUNTER NOTE SENT TO: na ER AND PASTER PRESS CLIPPINGS documented in this encounter Plan of Treatment Upcoming Encounters Date Type Department Care Team (Late st Contact Info) Description 02/12/2025 11:30 AM CDT Office Visit [facility] eld [address] [place] [address] Jun Oscar, CAT DRIVER [address] [place] [address] documented as of this encounter Visit Diagnoses Not on filedocumented in this encounter Care Teams Deboning Team Leader Relationship Specialty Start Date End Date Davin Estrada MD [address] [place] [address] [address] [place] [address] PCP - General FAMILY PRACTICE 04/12/23 documented as of this encounter
--- OUTSIDE RECORDS SUMMARY | 2024-04-27 15:47 | XMS_ITS | Encounter Summary ---
Author Organization [facility] System Address Formerly [facility] [facility] [place] [address] [place] [address] Care Team Providers Care Granite Block Paver Name Role Phone Davin Estrada MD Primary Care Provider [phone] Encounter Details Date Type Department Care Team (Late st Contact Info) Description 05/04/[address] [facility] [address] [place] [address] Judah House MD [address] [facility] [address] [place] [address] Social History Tobacco Use Types Packs/Day Years Used Date Smoking Tobacco: Never Passive Smoke Exposure: Never Smokeless Tobacco: Never Alcohol Use Standard Drinks/Week Comments Yes 0 (1 standard drink = 0.6 oz pur e alcohol) occasional wine [employer] Utilities Answer Date Recorded In the past 12 months has [employer], gas, oil, or water [place] threatened to shut off services in your [...] and heating? Not hard at all 04/27/2023 [facility] [place] [facility] - Occupational Stress [...] slept in a fdc (including now)? No 04/27/2023 Comments Unknown Sex and Gender Information Value Date Recorded Sex Assigned at Not on file Legal Sex Female 3:10 PM SORT LINE WORKER Gender Identity Not on file Sexual Orientation [...] Description 02/12/2025 11:30 AM CDT Office [facility] [address] [place] [address] Jun Oscar, ELECTRICAL REPAIRER [address] [place] [address] documented as of this encounter Visit Diagnoses Not on filedocumented in this encounter Care Teams Granite Block Paver Relationship Specialty Start Date End Date Davin Estrada MD [address] [place] [address] [address] [place] [address] PCP - General FAMILY PRACTICE 04/12/23 documented as of this encounter
--- OUTSIDE RECORDS SUMMARY | 2024-04-27 15:50 | XMS_ITS | Encounter Summary ---
Author Organization [facility] Address [address] [place] [address] Care Team Providers Care Cone Baker Machine Name Role Phone Unavailable Primary Care Provider Unavailabl e Reason for Referral * Diagnostic Imaging (Routine) - Closed Specialty Diagnoses / Procedures Referred By Contac t Referred To Contact Diagnoses Screening mammogram, encounter for Procedures Screening Mammogram Bilateral W [place] Screening Mammogram, [address] [address] Referral ID Status Reason Start Date Expiration Date Visits Re quested Visits Authorized [id number] Closed 08/03/2022 09/02/2023 1 1 * Diagnostic Imaging (Routine) - Closed Specialty Diagnoses / Procedures Referred By Contac t Referred To Contact Diagnoses Screening mammogram, encounter for Procedures Screening Mammogram Bilateral [place] Screening Mammogram, [address] [address] Referral ID Status Reason Start Date Expiration Date Visits Re quested Visits Authorized [id number] Closed 08/03/2022 09/02/2023 1 1 Reason for Visit * Diagnostic Imaging (Routine) - Closed Specialty Diagnoses / Procedures Referred By Contac t Referred To Contact Diagnoses Screening mammogram, encounter for Procedures Screening Mammogram Bilateral [place] Screening Mammogram, [address] [address] Referral ID Status Reason Start Date Expiration Date Visits Re quested Visits Authorized [id number] Closed 08/03/2022 09/02/2023 1 1 Encounter Details Date Type Department Care Team (Latest Contact Info) Description 09/11/2022 8:14 AM CDT - 09/11/2022 11:59 PM CDT Hospital Encounter [facility] [address] [place] [address] Screening mammogram, encounter for Discharge Disposition: Discharge to home or self care Social History Tobacco Use Types Packs/Day Years Used Date Smoking Tobacco: Never Assessed Comments No Sex and Gender Information Value Date Recorded Sex Assigned at Not on file Legal Sex 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 Gender Identity Not on file Sexual Orientation Not on file documented as of this encounter Discharge Disposition Disposition Code Departure Means Destination Discharge to home or self care documented in this encounter Plan of Treatment Not on file documented as of this encounter Procedures Procedure Name Priority Date/Time Associated Diagnosis Comments SCREENING MAMMOGRAM BILATERAL W KENDELL Schedule Routine, Read Routine (OP Routine) 09/11/2022 8:33 AM CDT Screening mammogram, encounter for documented in this encounter Results * Screening Mammogram Bilateral W Kendell (09/11/2022 8:33 AM CDT) Anatomical Region Laterality Modality Breast Bilateral Mammography 09/11/2022 8:45 AM CDT Impressions 09/11/2022 8:45 AM CDT There is no mammographic evidence of malignancy. A 1 year screening mammogram is recommended. BI-RADS: 1 - Negative. The patient has been or will be contacted. The patient will be entered into a reminder system with a target due date of 1 year for her next mammogram. Electronically signed by: Stuart Agarwal M.D. Narrative 09/11/2022 8:45 AM CDT EXAMINATION: SCREENING MAMMOGRAM BILATERAL W KENDELL ORDERING HEALTHCARE PROVIDER: SELF SCREENING MAMMOGRAM HISTORY: Routine screening mammography. COMPARISON: ??07/25/2021, 05/19/2020, 04/25/2019, 03/05/2017 TECHNIQUE: CC and MLO views of the bilateral breasts were obtained with digital technique using breast tomosynthesis with C view. Computer aided detection was utilized. FINDINGS: DENSITY: There are scattered fibroglandular elements in the bilateral breasts. BREASTS: There are no suspicious masses, suspicious calcifications, or other suspicious findings in either breast. There has been no suspicious interval change. us Self Screening Mammogram IMG MAMMO PROCEDURES Fi nal Result documented in this encounter Visit Diagnoses Diagnosis Screening mammogram, encounter for documented in this encounter
--- OUTSIDE RECORDS SUMMARY | 2024-04-27 15:50 | XMS_ITS | Referral Summary ---
Author Organization [facility] Address [address] [place] [address] Care Team Providers Care Cot Assembler Name Role Phone Davin Estrada MD Primary Care Provider [phone] Allergies No known active allergies Medications No known medications Social History Tobacco Use Types Packs/Day Years Used Date Smoking Tobacco: Never Assessed Personal Safety Answer Date Recorded Have you ever been in or are you currently in a harmful physical or emotional relationship or is someone making you feel afraid or unsafe? 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 Gender Identity Not on file Sexual Orientation Not on file Last Filed Vital Signs Vital Sign Reading Time Taken Comments Blood Pressure 149/71 05/16/2023 2:45 AM LINOLEUM TILE FLOOR LAYER Pulse 71 05/16/2023 2:45 AM LINOLEUM TILE FLOOR LAYER Temperature 36.3 ??C (97.3 ??F) 05/15/2023 11:[address] Respiratory Rate 16 05/16/2023 2:45 AM LINOLEUM TILE FLOOR LAYER Oxygen Saturation 97% 05/16/2023 2:45 AM LINOLEUM TILE FLOOR LAYER Inhaled Oxygen Concentration - - Weight 58.5 kg (129 lb) 05/15/2023 11:36 PM LINOLEUM TILE FLOOR LAYER Height 160 cm (5' 3 ) 10/17/2023 2:03 PM CDT Body Mass Index 22.85 05/15/2023 11:36 PM LINOLEUM TILE FLOOR LAYER Plan of Treatment Not on file Procedures Procedure Name Priority Date/Time Associated Diagnosis Comments SCREENING MAMMOGRAM BILATERAL W KENDELL Schedule Routine, Read Routine (OP Routine) 10/17/2023 2:13 PM CDT Screening mammogram, encounter for DEXA AXIAL SKELETON BONE DENSITY 1 OR MORE SITES Schedule Routine, Read Routine (OP Routine) 03/06/2023 8:17 AM LINOLEUM TILE FLOOR LAYER Encounter for gynecological examination (general) (routine) without abnormal findings Encounter for screening for osteoporosis from Last 3 Months or Most Recently Relevant to Health Maintenance Results * Screening Mammogram Bilateral W Kendell (10/17/2023 2:13 PM CDT) Anatomical Region Laterality Modality Breast Bilateral Mammography 10/17/2023 2:28 PM CDT Impressions 10/17/2023 2:28 PM CDT There is no mammographic evidence of malignancy. A 1 year screening mammogram is recommended. BI-RADS: 1 - Negative. The patient has been or will be contacted. The patient will be entered into a reminder system with a target due date of 1 year for her next mammogram. Electronically signed by: Roxane Vasquez M.D. Narrative 10/17/2023 2:28 PM CDT EXAMINATION: SCREENING MAMMOGRAM BILATERAL W KENDELL ORDERING HEALTHCARE PROVIDER: SELF SCREENING MAMMOGRAM HISTORY: Routine screening mammography. COMPARISON: ??09/11/2022, 07/25/2021, 05/19/2020, 04/25/2019, 03/05/2017, 02/17/2016 TECHNIQUE: CC and MLO views of the [...] Mammogram IMG MAMMO PROCEDURES Fi nal Result * Dexa Axial Skeleton Bone Density 1 or 2 Site (03/06/2023 8:17 AM LINOLEUM TILE FLOOR LAYER) Anatomical Region Laterality Modality Body N/A Other 03/07/2023 1:29 PM LINOLEUM TILE FLOOR LAYER Narrative 03/07/2023 1:35 PM LINOLEUM TILE FLOOR LAYER EXAM DESCRIPTION: DEXA AXIAL SKELETON BONE DENSITY 1 OR MORE SITES REASON FOR STUDY: 77 ??year old ??postmenopausal white female ??with given history of: ??Z01.419, Z13.820 ?? screening ? Book Cleaner/Model: Dianxin SL (S/N [id number]) CLINICAL INFORMATION: Current height: ??63 ??inches ? Maximum height: ??64 ??inches ? Weight: ??130 ??pounds Risk factors: ??Previous hysterectomy. ??Past history of cancer. ??Has taken vitamin-D and calcium. ??Performs regular weight-bearing exercise. ??Regularly consumes dairy products. ??Drinks caffeinated beverages. COMPARISON: May 19, 2020 FINDINGS: AP LUMBAR SPINE L1-L4: Total BMD is 0.960 g/cm2 T-score is -0.8 Dissimilar scan types or analysis methods precludes assessment for calculating a significant change. ?? LEFT HIP: Total BMD is 0.911 g/cm2 T-score is -0.3 Dissimilar scan types or analysis methods precludes assessment for calculating a significant change. ?? Femoral neck BMD is 0.680 g/cm2 T-score is -1.5 ?? FRAX: 10 year risk for a major osteoporotic fracture is 12 %, 10 year risk for a hip fracture is 2.6 % IMPRESSION: Low Bone Mass. REFERENCE: Bone mineral density: ? Normal (T-score above or = -1.0) ? Low bone mass ??(T-score between -1.0 and -2.5) replaces the previously used term osteopenia ? Osteoporosis (T-score = or below -2.5) Medical evaluation for secondary causes of low bone mineral density may be appropriate. FRAX is a World Health Organization validated fracture risk assessment tool that calculates a person's 10 year probability of a major osteoporosis related fracture and hip fracture. ??According to the National Osteoporosis Foundation guidelines, postmenopausal women and men age 50 or older with low bone mass and a 10 year probability of a major osteoporosis related fracture = or greater than 20% or a 10 year probability of a hip fracture = or greater than 3% should be considered for treatment. For further information, including treatment recommendations, please refer to the 2019 ISCD Official Positions (http://www.iscd.org) and the NOF's Clinician's Guide to Prevention and Treatment of Osteoporosis (http://www.nof.org/professionals/clinical-guidelines) THIS IS AN ELECTRONICALLY VERIFIED FINAL REPORT 03/07/2023 1:35 PM - Electronically signed by ??Omid Nair M.D. RB: GO D: ??03/07/2023 1:35 PM T: ??03/07/2023 1:35 PM Report ID: [id number] Reading Location: ??[id number] Procedure Note Omid Nair MD - 03/07/2023 EXAM DESCRIPTION: DEXA AXIAL SKELETON BONE DENSITY 1 OR MORE SITES REASON FOR STUDY: 77 year old postmenopausal white female with given history of: Z01.419, Z13.820 screening Book Cleaner/Model: Dianxin SL (S/N [id number]) CLINICAL INFORMATION: Current height: 63 inches Maximum height: 64 inches Weight: 130 pounds Risk factors: Previous hysterectomy. Past history of cancer. Has taken vitamin-D and calcium. Performs regular weight-bearing exercise.Regularly consumes dairy products. Drinks caffeinated beverages. COMPARISON: May 19, 2020 FINDINGS: AP LUMBAR SPINE L1-L4: Total BMD is 0.960 g/cm2 T-score is -0.8 Dissimilar scan types or analysis methods precludes assessment for calculating a significant change. LEFT HIP: Total BMD is 0.911 g/cm2 T-score is -0.3 Dissimilar scan types or analysis methods precludes assessment for calculating a significant change. Femoral neck BMD is 0.680 g/cm2 T-score is -1.5 FRAX: 10 year risk for a major osteoporotic fracture is 12 %, 10 year risk for ahip fracture is 2.6 % IMPRESSION: Low Bone Mass. REFERENCE: Bone mineral density: Normal (T-score above or = -1.0) Low bone mass (T-score between -1.0 and -2.5) replaces thepreviously used term osteopenia Osteoporosis (T-score = or below -2.5) Medical evaluation for secondary causes of low bone mineral density may be appropriate. FRAX is a World Health Organization validated fracture risk assessmenttool that calculates a person's 10 year probability of a major osteoporosisrelated fracture and hip fracture. According to the National OsteoporosisFoundation guidelines, postmenopausal women and men age 50 or older with low bonemass and a 10 year probability of a major osteoporosis related fracture = or greater than 20% or a 10 year probability of a hip fracture = or greaterthan 3% should be considered for treatment. For further information, including treatment recommendations, please referto the 2019 ISCD Official Positions (http://www.iscd.org) and the NOF's Clinician's Guide to Prevention and Treatment of Osteoporosis (http://www.nof.org/professionals/clinical-guidelines) THIS IS AN ELECTRONICALLY VERIFIED FINAL REPORT 03/07/2023 1:35 PM - Electronically signed by Omid Nair M.D. RB: GO Report ID: [id number] Reading Location: [place] [address] Angela Alcocer NP IMG DXA PROCEDURES Final Resu lt from Last 3 Months or Most Recently Relevant to Health Maintenance Insurance MEDICARE COMMERCIAL GENERIC [facility] MEDICARE COMMERCIAL GENERIC COMM[facility]CIAL [facility] MEDICARE [facility] Address: [address] [address] [facility] Care Teams Cot Assembler Relationship Specialty Start Date End Date Davin Estrada MD [address] [address] PCP - General Family Medicine 02/27/23
--- OUTSIDE RECORDS SUMMARY | 2024-04-27 15:50 | XMS_ITS | Encounter Summary ---
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
--- OUTSIDE RECORDS SUMMARY | 2024-04-27 15:50 | XMS_ITS | Encounter Summary ---
Author Organization [facility] Address [address] [place] [address] Care Team Providers Care Taxation Economist Name Role Phone Unavailable Primary Care Provider Unavailabl e Reason for Referral * Diagnostic Imaging (Routine) - Closed Specialty Diagnoses / Procedures Referred By Eron bullock Referred To Contact Diagnoses Encounter for screening for malignant neoplasm of small intestine Procedures Screening Mammogram Bilateral W Tyshawn Houston MD [address] [address] Phone: tel: fax: [address] [address] Referral ID Status Reason Start Date Expiration Date Visits Re quested Visits Authorized [id number] Closed 05/18/2020 06/17/2021 1 1 WRITERS FUNCTIONAL TESTER Reason for Visit * Diagnostic Imaging (Routine) - Closed Specialty Diagnoses / Procedures Referred By Eron bullock Referred To Contact Diagnoses Encounter for screening for malignant neoplasm of small intestine Procedures Screening Mammogram Bilateral W Tyshawn Houston MD [address] [address] Phone: tel: fax: [address] [address] Referral ID Status Reason Start Date Expiration Date Visits Re quested Visits Authorized [id number] Closed 05/18/2020 06/17/2021 1 1 Encounter Details Date Type Department Care Team (Latest Contact Info) Description 05/19/2020 7:19 AM TYPEWRITERS FUNCTIONAL TESTER - 05/19/2020 11:59 PM TYPEWRITERS FUNCTIONAL TESTER Hospital Encounter [facility] [address] [place] [address] Tyshawn Baltazar MD [address] [place] [address] Encounter for screening for malignant neoplasm of small intestine Discharge Disposition: Discharge to home or self care Social History Tobacco Use Types Packs/Day Years Used Date Smoking Tobacco: Never Assessed Comments No Sex and Gender Information Value Date Recorded Sex Assigned at Not on file Legal Sex Female 1:32 PM TYPEWRITERS FUNCTIONAL TESTER Gender Identity Not on file Sexual Orientation Not on file documented as of this encounter Last Filed Vital Signs Vital Sign Reading Time Taken Comments Blood Pressure - - Pulse - - Temperature - - Respiratory Rate - - Oxygen Saturation - - Inhaled Oxygen Concentration - - Weight 59 kg (130 lb) 05/19/2020 7:29 AM TYPEWRITERS FUNCTIONAL TESTER Height 160 cm (5' 3 ) 05/19/2020 7:29 AM TYPEWRITERS FUNCTIONAL TESTER Body Mass Index 23.03 05/19/2020 7:29 AM TYPEWRITERS FUNCTIONAL TESTER documented in this encounter Discharge Disposition Disposition Code Departure Means Destination Discharge to home or self care documented in this encounter Plan of Treatment Not on file documented as of this encounter Procedures Procedure Name Priority Date/Time Associated Diagnosis Comments SCREENING MAMMOGRAM BILATERAL W KALEB Routine 05/19/2020 7:35 AM TYPEWRITERS FUNCTIONAL TESTER Encounter for screening for malignant neoplasm of small intestine documented in this encounter Results * Screening Mammogram Bilateral W Kaleb (05/19/2020 7:35 AM TYPEWRITERS FUNCTIONAL TESTER) Anatomical Region Laterality Modality Breast Bilateral Mammography 05/19/2020 8:12 AM TYPEWRITERS FUNCTIONAL TESTER Impressions 05/19/2020 8:14 AM TYPEWRITERS FUNCTIONAL TESTER There is no mammographic evidence of malignancy. A 1 year screening mammogram is recommended. BI-RADS: 1 - Negative. The patient will be entered into a reminder system with a target due date of 1 year for her next mammogram. Electronically signed by: Shae Lea MD Narrative 05/19/2020 8:14 AM TYPEWRITERS FUNCTIONAL TESTER EXAMINATION: SCREENING MAMMOGRAM BILATERAL W KALEB ORDERING HEALTHCARE PROVIDER: TYSHAWN BALTAZAR HISTORY: Routine screening mammography. COMPARISON: ??04/25/2019, 03/25/2018, 03/05/2017 and 02/17/2016 TECHNIQUE: CC and MLO views of the bilateral breasts were obtained with digital technique using breast tomosynthesis with C view. Computer aided detection was utilized. FINDINGS: DENSITY: There are scattered fibroglandular elements in the bilateral breasts. BREASTS: There are no suspicious masses, suspicious calcifications, or other suspicious findings in either breast. There has been no suspicious interval change. us Tyshawn Baltazar MD IMG MAMMO PROCEDURES Final R esult documented in this encounter Visit Diagnoses Diagnosis Encounter for screening for malignant neoplasm of small intestine documented in this encounter
--- OUTSIDE RECORDS SUMMARY | 2024-04-27 15:50 | XMS_ITS | Encounter Summary ---
Author Organization [facility] Care Team Providers Care Ledge Man Name Role Phone Davin Estrada MD Primary Care Provider [phone] Encounter Details Date Type Department Care Team (Latest Contact Info) Description 12/06/2022 Travel Social History Tobacco Use Types Packs/Day Years Used Date Smoking Tobacco: Never Smokeless Tobacco: Never Alcohol Use Standard Drinks/Week Comments Yes 7 (1 standard drink = 0.6 oz pur e alcohol) Sexually Active Control Partners Comments Yes Male Comments Unknown Sex and Gender Information Value Date Recorded Sex Assigned at Not on file Legal Sex Female 10:09 PM CDT Gender Identity Not on file Sexual Orientation Not on file COVID-19 Exposure Response Date Recorded In the last 10 days, have yo u been in contact with someone who was confirmed or suspected to have Coronavirus/COVID-19? No / Unsure 11/13/2022 9:57 AM CDT documented as of this encounter Plan of Treatment Not on file documented as of this encounter Visit Diagnoses Not on filedocumented in this encounter Care Teams Ledge Man Relationship Specialty Start Date End Date Davin Estrada MD [address] [address] PCP - General Family Medicine 11/13/22 documented as of this encounter
--- OUTSIDE RECORDS SUMMARY | 2024-04-27 15:50 | XMS_ITS | Encounter Summary ---
Author Organization [facility] Healthcare Address [address] [place] [id number] Care Team Providers Care Civil Process Server Name Role Phone Davin Estrada MD Primary Care Provider [phone] Reason for Visit * Reason Comments Rapid Heart Rate Encounter Details Date Type Department Care Team (Late st Contact Info) Description 05/15/2023 11:28 PM SPIRAL MACHINE OPERATOR - 05/16/2023 2:59 AM SPIRAL MACHINE OPERATOR Emergency [facility] Emergency Department [address] [place] [address] Miesha Talamantes MD [address] [place] [id number] Tachycardia, paroxysmal (CMS/HCC) (HCC) (Primary Dx) Discharge Disposition: Discharge to home or self [...] on file Legal Sex Female 1:32 PM SPIRAL MACHINE OPERATOR Gender Identity Not on file Sexual Orientation Not on file documented as of this encounter Last Filed Vital Signs Vital Sign Reading Time Taken Comments Blood Pressure 149/71 05/16/2023 2:45 AM SPIRAL MACHINE OPERATOR Pulse 71 05/16/2023 2:45 AM SPIRAL MACHINE OPERATOR Temperature 36.3 ??C (97.3 ??F) 05/15/2023 11:[address] Respiratory Rate 16 05/16/2023 2:45 AM SPIRAL MACHINE OPERATOR Oxygen Saturation 97% 05/16/2023 2:45 AM SPIRAL MACHINE OPERATOR Inhaled Oxygen Concentration - - Weight 58.5 kg (129 lb) 05/15/2023 11:36 PM SPIRAL MACHINE OPERATOR Height 160 cm (5' 3 ) 05/15/2023 11:36 PM SPIRAL MACHINE OPERATOR Body Mass Index 22.85 05/15/2023 11:36 PM SPIRAL MACHINE OPERATOR documented in this encounter Discharge Instructions * Attachments The following attachments cannot be sent through Care Everywhere. * Tachycardia: PAT (Iranian) documented in this encounter Discharge Disposition Disposition Code Departure Means Destination Comment s Discharge to home or self care Ambulatory, AOx4, VSS, NAD documented in this encounter ED Notes * Miesha Talamantes MD - 05/15/2023 11:45 PM CST Triage Chief Complaint: Chief Complaint Patient presents with Rapid Heart Rate Triage Note 2334 To ED BIBEMS with c/o rapid heart rate, states that she laid down for bed and felt like her heart was racing. States she checked her heart rate on her watch and it said her HR was 210, states that lasted about 5 minutes and came down to 115. EMS reports HR of 115, but also reports pt was hypertensive in route. AOx4, NAD Portions of the record may have been created with voice recognition software. Occasional wrong-word or '[id number]' substitutions may have occurred due to the inherent limitations of voice recognition software. Read the chart carefully and recognize, using context, where substitutions have occurred. H&P: Cele Salcido is a 77 y.o. female with h/o cardiomyopathy of unknown etiology EF of 30-35%, mild to moderate aortic valve insufficiency, hyperlipidemia, hypertension, SVT, paroxysmal supraventricular tachycardia with a plan to undergo ablation in June (in 2 months) and has cardiac catheterizationset up to evaluate for causes cardiomyopathy, presents for palpitations and a racing heart which has now resolved. When she was laying down for bed this evening she felt her heart racing. She checkedher heart rate on her watch. It was around 190 and fluctuating a bit. She felt lightheaded. It lasted about 5 minutes. During that time her called 911. Upon EMS arrival her heart rate had returned to normal but she was hypertensive so EMS recommended that she be seen in the emergency department. Right now she feels completely fine. No chest pain. No nausea. No palpitations. She has an appointment with Cardiology on Sunday for cardiac catheterization. Social history: Nonsmoker Past medical/past surgical/meds: Ovarian cancer diagnosed at 40 years old with no reoccurrence Past Medical History: Diagnosis Date History of chemotherapy 1985 ovarian ca Ovarian cancer (HCC) 1985 Past Surgical History: Procedure Laterality Date HYSTERECTOMY 1985 OOPHORECTOMY 1985 HOME MEDICATIONS : Not on File Metoprolol 25 daily, Entresto b.i.d., metoprolol, Sacubitril / Valsartan, zolpidem Alprazolam, amitriptyline, aspirin, calcium, vitamin-D, Nursing Notes Reviewed. Physical Exam: ED Triage Vitals [05/15/23 2336] Temp Pulse Resp BP SpO2 36.3 ??C (97.3 ??F) 94 18 170/84 97 % Temp src Heart Rate Source Patient Position BP Location FiO2 (%) Temporal -- -- -- -- Height Height Method Weight Weight Method 1.6 m (5' 3 ) Stated 58.5 kg (129 lb) Stated GENERAL APPEARANCE: Awake and alert. No acute distress. HEAD: Atraumatic. EYES: Sclera anicteric. EOMI. ENT: Tolerates saliva. NECK: Supple. Trachea midline. HEART: RRR. Radial pulses 2+. LUNGS: Respirations unlabored. CTAB. ABDOMEN: Soft. Non-tender. No guarding or rebound. EXTREMITIES: No acute deformities. No edema. SKIN: Warm and dry. NEUROLOGICAL: No gross facial drooping. Moves all 4 extremities spontaneously. Normal speech and mental status. No ataxia noted. PSYCHIATRIC: Normal mood. I have reviewed and interpreted all of the currently available lab results from this visit (if applicable): Labs Reviewed CBC WITH AUTO DIFFERENTIAL - Abnormal Result Value WBC 4.4 Hgb 14.4 Hct 42.9 Plt 178 MPV 9.8 RBC 4.43 MCV 96.8 (*) MCH 32.5 MCHC 33.6 RDW CV 12.9 RDW SD 46.0 NRBC abs 0.00 THYROID FUNCTION CASCADE - Abnormal TSH 6.90 (*) PRO B-TYPE NATRIURETIC PEPTIDE - Abnormal NT-proBNP 831 (*) DIFFERENTIAL AUTO Neutrophil abs 2.6 Imm gran abs 0.0 Lymphocyte abs 1.3 Monocyte abs 0.3 Eosinophil abs 0.1 Basophil abs 0.0 Neutrophil pct 59.2 Imm gran pct 0.2 Lymphocyte pct 29.9 Monocyte pct 7.5 Eosinophil pct 2.3 Basophil pct 0.9 MAGNESIUM Magnesium 1.8 PROTIME-INR PT 11.6 INR 1.02 APTT aPTT 29 TROPONIN T HIGH-SENSITIVITY SERIES (BASELINE, 2HR, 4HR, 6HR) Trop T hs 10 COMPREHENSIVE METABOLIC PANEL Sodium 138 Potassium, pl 3.9 Chloride 103 CO2 24 Anion gap 12 BUN 19 Creatinine 0.92 Glucose 96 Calcium 9.1 Bilirubin, total <0.2 Protein, pl 6.8 Albumin 3.8 Alk phos 56 ALT 12 AST 20 EGFR eGFR 64 T4, FREE Free T4 1.24 Narrative: This test was reflexed from a TSH result. T3, FREE Radiographs (if obtained): Report Reviewed: XR Chest 1 Vw Portable Final Result EKG (if obtained): (All EKGs are interpreted by myself in the absence of a trailer steerer) Normal sinus rhythm with a rate of 89, normal intervals, normal axis, normal ST segments and T-waves. Impression: Normal EKG. No previous for comparison. Procedures Chart/outside records review shows: Reviewed cardiology office visit 05/04/2023 Admission to [facility] for hypertension and lightheadedness 04/27/2023 Patient was admitted to [facility] on 04/12/2023 with SVT. She received 2 doses of adenosine and was cardioverted. EP evaluated patient and continued metoprolol. An echo was done. EF of 30 to 35% and grade 2 DD. She was started on Entresto 24/26 mg daily. She was continued on her metoprolo ED course/MDM: External chart review: (details typically documented under ED workup or in chart/outside record review above in my note, if obtained) History obtained by: (Typically documented in the HPI section, sometimes in ED course when obtainedfrom additional historians but not at the initial time of patient presentation.) Discussion of management: (typically conversations time stamped and documented in ED course), Independent interpretation studies: (typically documented in ED course and please note that labs and Radiology reads obtained in the ED and listed above have been reviewed) Vitals: 05/16/23 0205 05/16/23 0215 05/16/23 0230 05/16/23 0245 BP: 150/78 150/70 151/72 149/71 Pulse: 75 73 70 71 Resp: 18 15 18 16 Temp: TempSrc: SpO2: 94% 97% 98% 97% Weight: Height: ED Course as of 05/16/23 0710 Time: 05/15 2344 Value: Pulse: 94 Comment: Normal heart rate By: Miesha Talamantes MD Time: 05/15 2345 Value: Troponin T high-sensitivity series (baseline, 2hr, 4hr, 6hr) Comment: Ordered from triage/protocol By: Miesha Talamantes MD Time: 05/15 2345 Value: BP: 170/84 Comment: Slightly elevated, but not too concerning By: Miesha Talamantes MD Time: 05/16 117 Value: Trop T hs: 10 Comment: (Reviewed) By: Miesha Talamantes MD MDM: 77-year-old presenting with an episode of tachycardia that is now resolved. She was currently asymptomatic. She has a history of this. She previously required cardioversion with adenosine. She reports taking all of her medications. She has a trailer steerer with whom she can follow-up. She has been advised to call her trailer steerer's office today and let them know about the ED visit. Will print all of her results for her records. I doubt underlying pathology causing symptoms such as PE, infection, blood loss, sympathomimetic, medication noncompliance, withdrawal, thyroid storm, electrolyte abnormality, etc.. Clinically, she was not in decompensated heart failure. Discharge instructions: The patient and I have discussed results, diagnosis and or diagnostic uncertainty and the need for follow-up. We have discussed follow- up instructions and return precautions, to which the patient verbalized understanding and agreement. Clinical Impression: 1. Tachycardia, paroxysmal (CMS/HCC) (HCC) Disposition: Discharge (Please note that portions of this note may have been completed with a voice recognition program. Can Stacker errors occur. Please contact me for any clarification.) Miesha Talamantes MD 05/16/23 0710 AL MACHINE OPERATOR * Anna Delcid RN - 05/15/2023 11:34 PM CST To ED BIBEMS with c/o rapid heart rate, states that she laid down for bed and felt like her heart was racing. States she checked her heart rate on her watch and it said her HR was 210, states that lasted about 5 minutes and came down to 115. EMS reports HR of 115, but also reports pt was hypertensive in route. AOx4, NAD AL MACHINE OPERATOR * Keron Marx RN - 05/15/2023 11:28 PM CST Bed: ED02 Expected date: Expected time: Means of arrival: Comments: 1341 Keron Marx RN 05/15/23 2328 AL MACHINE OPERATOR documented in this encounter Plan of Treatment Not on file documented as of this encounter Procedures Procedure Name Priority Date/Time Associated Diagnosis Comments TROPONIN T HIGH-SENSITIVITY SERIES (BASELINE, 2HR, 4HR, 6HR) STAT 05/16/2023 12:27 AM SPIRAL MACHINE OPERATOR EGFR STAT 05/16/2023 12:27 AM SPIRAL MACHINE OPERATOR PRO B-TYPE NATRIURETIC PEPTIDE STAT 05/16/2023 12:27 AM SPIRAL MACHINE OPERATOR THYROID FUNCTION CASCADE STAT 05/16/2023 12:27 AM SPIRAL MACHINE OPERATOR APTT STAT 05/16/2023 12:27 AM SPIRAL MACHINE OPERATOR PROTIME-INR STAT 05/16/2023 12:27 AM SPIRAL MACHINE OPERATOR T3, FREE STAT 05/16/2023 12:27 AM SPIRAL MACHINE OPERATOR T4, FREE STAT 05/16/2023 12:27 AM SPIRAL MACHINE OPERATOR MAGNESIUM STAT 05/16/2023 12:27 AM SPIRAL MACHINE OPERATOR COMPREHENSIVE METABOLIC PANEL STAT 05/16/2023 12:27 AM SPIRAL MACHINE OPERATOR XR CHEST 1 VIEW ED 05/16/2023 12:11 AM SPIRAL MACHINE OPERATOR DIFFERENTIAL AUTO STAT 05/15/2023 11: 45 PM SPIRAL MACHINE OPERATOR CBC WITH AUTO DIFFERENTIAL STAT 05/15/2023 11:45 PM SPIRAL MACHINE OPERATOR ECG 12-LEAD STAT 05/15/2023 11:44 PM SPIRAL MACHINE OPERATOR documented in this encounter Results * T3, free (05/16/2023 12:27 AM SPIRAL MACHINE OPERATOR) Free T3 2.7 2.0 - 4.4 pg/mL [facility] ([place]) Comment:Testing performed by : , [id number] [place] [address], [place]., [address] Blood 05/16/2023 12:2 7 AM SPIRAL MACHINE OPERATOR 05/16/2023 9:41 AM SPIRAL MACHINE OPERATOR Narrative [facility] ([place]) - 05/16/2023 10:24 AM SPIRAL MACHINE OPERATOR This test was reflexed from a T4 result. us Miesha Talamantes MD LAB BLOOD ORDERABLES Fin al Result [facility] ([place]) 1 [facility] [place] [address] * T4, free (05/16/2023 12:27 AM SPIRAL MACHINE OPERATOR) Pathologist [facility] Free T4 1.24 0.90 - 1.70 ng/dL [facility] ([place]) Blood 05/16/2023 12:2 7 AM SPIRAL MACHINE OPERATOR 05/16/2023 9:44 AM SPIRAL MACHINE OPERATOR Narrative [facility] ([place]) - 05/16/2023 10:24 AM SPIRAL MACHINE OPERATOR This test was reflexed from a TSH result. us Miesha Talamantes MD LAB BLOOD ORDERABLES Winston tyson Result - Final Performing Organization Address [place]/[facility] Co de Phone Number [facility] ([place]) 1 [facility] [place] [address] * eGFR (05/16/2023 12:27 AM SPIRAL MACHINE OPERATOR) Pathologist [facility] eGFR 64 mL/min/1. 73 m2 [facility] ([place]) Comment: Interpretive Data Reference Interval Normal ?>/= 90 mL/min/1.73m2 Mildly decreased* ? 60 - 89 mL/min/1.73m2 Mildly to moderately decreased ?45 - 59 mL/min/1.73m2 Moderately to severely decreased ??30 - 44 mL/min/1.73m2 Severely decreased ?15 - 29 mL/min/1.73m2 Kidney Failure ?< 15 ??mL/min/1.73m2 *Relative to young adult level Estimated glomerular filtration rate is determined by the 2020 CKD-EPI equation recommended by the National Kidney Foundation (A Unifying Approach to GFR Estimation: Recommendations of the NKF-ASK Task Force on Reassessing the Inclusion of Race in Diagnosing Kidney Disease, JASN 2020). The CKD-EPI equation should not be used for patients with unstable renal function and has not been validated in children and those over 70. Current interpretive data was last reviewed 2021. Blood 05/16/2023 12:2 7 AM SPIRAL MACHINE OPERATOR 05/16/2023 12:31 AM SPIRAL MACHINE OPERATOR us Miesha Talamantes MD LAB BLOOD ORDERABLES Fin al Result [facility] ([place]) 1 [facility] [place] [address] * Comprehensive metabolic panel (05/16/2023 12:27 AM SPIRAL MACHINE OPERATOR) Sodium 138 135 - 145 mmol/L [facility] ([place]) Potassium, pl 3.9 3.3 - 4.9 mmol/L [facility] ([place]) Chloride 103 97 - 110 mmol/L [facility] ([place]) CO2 24 22 - 32 mmol/L [facility] ([place]) Anion gap 12 2 - 15 mmol/L [facility] ([place]) BUN 19 6 - 25 mg/dL [facility] ([place]) Creatinine 0.92 0.60 - 1.10 mg/dL [facility] ([place]) Glucose 96 70 - 199 mg/dL [facility] ([place]) Comment: Interpretive Data Fasting glucose >/= 126 mg/dl is diagnostic for diabetes. ?? Fasting is defined as no caloric intake for at least 8 hours. Fasting glucose between 100 mg/dl to 125 mg/dl is diagnostic of prediabetes. In a patient with classic symptoms of hyperglycemia or hyperglycemic crisis, a random glucose >/= 200 mg/dl is diagnostic for diabetes. In the absence of unequivocal hyperglycemia, results should be confirmed by repeat testing. The classification and Diagnosis of Diabetes Diabetes Care 2021; 46: S19-S40. Current interpretive data was last revised 2022. Calcium 9.1 8.5 - 10.3 mg/dL [facility] ([place]) Bilirubin, total <0.2 0.1 - 1.2 mg/dL [facility] ([place]) Protein, pl 6.8 6.5 - 8.5 g/dL [facility] ([place]) Albumin 3.8 3.5 - 5.0 g/dL [facility] ([place]) Alk phos 56 40 - 130 Units/L [facility] ([place]) ALT 12 7 - 45 Units/L [facility] ([place]) AST 20 10 - 45 Units/L [facility] ([place]) Blood 05/16/2023 12:2 7 AM SPIRAL MACHINE OPERATOR 05/16/2023 12:31 AM SPIRAL MACHINE OPERATOR Miesha Talamantes MD LAB BLOOD ORDERABLES Fin al Result Performing Organization Address City/[facility]/ZIP Co de Phone Number [facility] ([place]) 1 [facility] [place] [address] * Troponin T high-sensitivity series (baseline, 2hr, 4hr, 6hr) (05/16/2023 12:27 AM SPIRAL MACHINE OPERATOR) Trop T hs 10 <=14 ng/L [facility] ([place]) Comment: Interpretive Data For further hscTnT resources including the diagnostic algorithm and an aid in interpretation, copy and paste this link: https://nrl.testcatalog.org/show/hsTrop Current Interpretive Data last revised 2020. Blood 05/16/2023 12:2 7 AM SPIRAL MACHINE OPERATOR 05/16/2023 12:31 AM SPIRAL MACHINE OPERATOR Miesha Talamantes MD LAB BLOOD ORDERABLES Fin al Result Performing Organization Address City/[facility]/ZIP Co de Phone Number [facility] ([place]) 1 [facility] [place] [address] * (ABNORMAL) Pro B-type natriuretic peptide (05/16/2023 12:27 AM SPIRAL MACHINE OPERATOR) NT-proBNP 831(H) <=450 pg/mL [facility] ([place]) Comment: Interpretive Comments: A. Dyspnea in Acute Care Setting All Ages: ?< 300 pg/ml, acute heart failure unlikely. < 50 yrs: ?300 - 450 pg/ml, further investigation warranted. ? > 450 pg/ml, acute heart failure likely. 50 - 74 yrs: ? 300 - 900 pg/ml, further investigation warranted. ? > 900 pg/ml, acute heart failure likely . > or = 75 yrs: ? 450 - 1800 pg/ml, further investigation warranted. ? > 1800 pg/ml, acute heart failure likely. B. Non-acute Setting < 75 yrs ? < 125 pg/ml, rules out heart failure. ? > or = 125 pg/ml, further investigation warranted. > or = 75 yrs ?< 450 pg/ml, rules out heart failure. ? > or = 450 pg/ml, further investigation warranted. - Knowledge of each individual patient's NT-proBNP range may be more useful than using similar cut-points for every patient. Please note that marked elevations in NT-proBNP levels may be observed in state other than Left Ventricular Congestive Failure, including: acute coronary syndromes, right heart strain/failure (including pulmonary embolism and cor pulmonale), critical illness, renal failure, as well as advanced age. - References: 1. [place] REEDER et.al. Eur Heart J. 2006:27:330-337. 2. Chase RW, Rodolfo VALERIO. J. AM Rodney Cardiol: Cardiovasc Imag. 2009;2: 216- 225. Interpretive Data Last Revised Date: 2017. Blood 05/16/2023 12:2 7 AM SPIRAL MACHINE OPERATOR 05/16/2023 12:31 AM SPIRAL MACHINE OPERATOR us Miesha Talamantes MD LAB BLOOD ORDERABLES Fin al Result [facility] [place]) 1 [facility] [place] [address] 60 * (ABNORMAL) Thyroid Function [place] (05/16/2023 12:27 AM SPIRAL MACHINE OPERATOR) TSH 6.90(H) 0.30 - 4.20 mcIUnit/mL [facility] ([place]) Blood 05/16/2023 12:2 7 AM SPIRAL MACHINE OPERATOR 05/16/2023 12:31 AM SPIRAL MACHINE OPERATOR Miesha Talamantes MD LAB BLOOD ORDERABLES Fin al Result Performing Organization Address [place]/[facility] Co de Phone Number [facility] ([place]) 1 [place] [address] * aPTT (05/16/2023 12:27 AM SPIRAL MACHINE OPERATOR) aPTT 29 28 - 38 sec [facility] ([place]) Comment: Interpretive Data Heparin therapeutic range: 66.0 - 100.0 seconds. Range based on correlation with therapeutic heparin activity range of 0.3 - 0.7 Units/mL. Current interpretive data was last revised on 2023. Blood 05/16/2023 12:2 7 AM SPIRAL MACHINE OPERATOR 05/16/2023 12:31 AM SPIRAL MACHINE OPERATOR Miesha Talamantes MD LAB BLOOD ORDERABLES Fin al Result Performing Organization Address [place]/[facility] Co de Phone Number [facility] ([place]) 1 [facility] [place] [address] * Protime-INR (05/16/2023 12:27 AM SPIRAL MACHINE OPERATOR) PT 11.6 10.3 - 13.7 sec [facility] ([place]) INR 1.02 0.90 - 1.20 [facility] ([place]) Comment: Interpretive data Oral anticoagulant therapeutic ranges: Venous thromboembolism prophylaxis or treatment: 2.0-3.0 CARDIOLOGY Standard range: 2.0-3.0 High-intensity range: 2.5-3.5 Refer to indication-specific guidelines for appropriate target ranges for prosthetic heart valve replacement. Current interpretive data was last revised on 2019. Blood 05/16/2023 12:2 7 AM SPIRAL MACHINE OPERATOR 05/16/2023 12:31 AM SPIRAL MACHINE OPERATOR Miesha Talamantes MD LAB BLOOD ORDERABLES Fin al Result [facility] ([place]) 1 [facility] [place] [address] * Magnesium (05/16/2023 12:27 AM SPIRAL MACHINE OPERATOR) Magnesium 1.8 1.4 - 2.5 mg/dL [facility] ([place]) Blood 05/16/2023 12:2 7 AM SPIRAL MACHINE OPERATOR 05/16/2023 12:31 AM SPIRAL MACHINE OPERATOR Miesha Talamantes MD LAB BLOOD ORDERABLES Fin al Result Performing Organization Address [place]/[facility] de Phone Number [facility] ([place]) 1 [facility] [place] [address] * XR Chest 1 Vw Portable (05/16/2023 12:11 AM SPIRAL MACHINE OPERATOR) Anatomical Region Laterality Modality Body, Chest N/A Computed Radiogr aphy 05/16/2023 12:1 3 AM SPIRAL MACHINE OPERATOR Narrative 05/16/2023 12:19 AM SPIRAL MACHINE OPERATOR EXAM DESCRIPTION: XR CHEST 1 VIEW REASON FOR STUDY: chest pain ?? C/o rapid heart rate and hypertension tonight. No cardiac hx. Non smoker ?? TECHNIQUE: Single frontal ??radiographic view of the chest was acquired. COMPARISON: 07/23/2018 FINDINGS: LUNGS/PLEURA: ??There is no evidence of focal pulmonary infiltrate. ??There is no evidence of pneumothorax. ??There is no evidence of significant pleural effusion. HEART/MEDIASTINUM: ??The heart size is normal. There are normal mediastinal and hilar contours. HARDWARE/LINES/TUBES: ??None in the chest. BONES: ?? No acute findings. OTHER: ?? No other significant finding. IMPRESSION: No acute cardiopulmonary abnormality. THIS IS AN ELECTRONICALLY VERIFIED FINAL REPORT 05/16/2023 12:19 AM - Electronically signed by ??Lonny Sutherland M.D. RW: RASTA D: ??05/16/2023 12:19 AM T: ??05/16/2023 12:19 AM Report ID: [id number] Reading Location: ??[id number] Procedure Note Lonny Sutherland MD - 05/16/2023 EXAM DESCRIPTION: XR CHEST 1 VIEW REASON FOR STUDY: chest pain C/o rapid heart rate and hypertension tonight. No cardiac hx. Non smoker TECHNIQUE: Single frontal radiographic view of the chest was acquired. COMPARISON: 07/23/2018 FINDINGS: LUNGS/PLEURA: There is no evidence of focal pulmonary infiltrate. Thereis no evidence of pneumothorax. There is no evidence of significant pleural effusion. HEART/MEDIASTINUM: The heart size is normal. There are normal mediastinaland hilar contours. HARDWARE/LINES/TUBES: None in the chest. BONES: No acute findings. OTHER: No other significant finding. IMPRESSION: No acute cardiopulmonary abnormality. THIS IS AN ELECTRONICALLY VERIFIED FINAL REPORT 05/16/2023 12:19 AM - Electronically signed by Lonny Sutherland M.D. RW: RASTA Report ID: [id number] Reading Location: [id number] us Miesha Talamantes MD IMG XR PROCEDURES Final Result * Differential, auto (05/15/2023 11:45 PM SPIRAL MACHINE OPERATOR) Neutrophil abs 2.6 1.5 - 6.5 K/cumm [facility] ([place]) Imm gran abs 0.0 0.0 - 0.1 K/cumm [facility] ([place]) Lymphocyte abs 1.3 0.8 - 3.3 K/cumm [facility] ([place]) Monocyte abs 0.3 0.2 - 0.8 K/cumm [facility] ([place]) Eosinophil abs 0.1 0.0 - 0.5 K/cumm [facility] ([place]) Basophil abs 0.0 0.0 - 0.1 K/cumm [facility] ([place]) Neutrophil pct 59.2 % [facility] ([place]) Comment: Interpretive Data Percent cell count reference ranges are not reported, since discordance with absolute values may lead to misinterpretation of CBC data. Current Interpretive Data was last revised on 2017. Imm gran pct 0.2 % [facility] ([place]) Comment: Interpretive Data Percent cell count reference ranges are not reported, since discordance with absolute values may lead to misinterpretation of CBC data. Current Interpretive Data was last revised on 2017. Lymphocyte pct 29.9 % [facility] ([place]) Comment: Interpretive Data Percent cell count reference ranges are not reported, since discordance with absolute values may lead to misinterpretation of CBC data. Current Interpretive Data was last revised on 2017. Monocyte pct 7.5 % [facility] ([place]) Comment: Interpretive Data Percent cell count reference ranges are not reported, since discordance with absolute values may lead to misinterpretation of CBC data. Current Interpretive Data was last revised on 2017. Eosinophil pct 2.3 % [facility] ([place]) Comment: Interpretive Data Percent cell count reference ranges are not reported, since discordance with absolute values may lead to misinterpretation of CBC data. Current Interpretive Data was last revised on 2017. Basophil pct 0.9 % [facility] ([place]) Comment: Interpretive Data Percent cell count reference ranges are not reported, since discordance with absolute values may lead to misinterpretation of CBC data. Current Interpretive Data was last revised on 2017. Blood 05/15/2023 11:4 5 PM SPIRAL MACHINE OPERATOR 05/15/2023 11:48 PM SPIRAL MACHINE OPERATOR us Miesha Talamantes MD LAB BLOOD ORDERABLES Fin al Result [facility]ER[facility] (MICHAEL) 1 [facility] [place] [address] * (ABNORMAL) CBC with auto differential (05/15/2023 11:45 PM SPIRAL MACHINE OPERATOR) WBC 4.4 3.8 - 9.9 K/cumm [facility] (MICHAEL) Hgb 14.4 11.9 - 15.5 g/dL [facility] (MICHAEL) Hct 42.9 35.6 - 45.5 % [facility] (MIHCAEL) Plt 178 150 - 400 K/cumm [facility] (MICHAEL) MPV 9.8 9.1 - 12.3 fL [facility] (MICHAEL) RBC 4.43 3.90 - 5.20 M/cumm [facility] (MICHAEL) MCV 96.8(H) 81.3 - 96.4 fL [facility] (MICHAEL) MCH 32.5 27.1 - 33.3 pg [facility] (MICHAEL) MCHC 33.6 32.3 - 35.7 g/dL [facility] (MICHAEL) RDW CV 12.9 11.1 - 14.9 % [facility] (MICHAEL) RDW SD 46.0 35.7 - 48.1 fL [facility] (MICHAEL) NRBC abs 0.00 0.00 - 0.01 K/cumm [facility] (MICHAEL) Blood (Blood, Venous) 05/15/2023 11:45 PM SPIRAL MACHINE OPERATOR 05/15/2023 11:48 PM SPIRAL MACHINE OPERATOR Miesha Talamantes MD LAB BLOOD ORDERABLES Fin al Result [facility] (MICHAEL) 1 [facility] [place] [address] * ECG 12 lead (05/15/2023 11:44 PM SPIRAL MACHINE OPERATOR) 05/15/2023 11:4 4 PM SPIRAL MACHINE OPERATOR Narrative [facility] - 05/16/2023 7:44 AM SPIRAL MACHINE OPERATOR Vent Rate: 89 bpm RR Interval: 667 msec CA Interval: 170 msec QRS Duration: 93 msec QT Interval: 381 msec QTC Interval: 428 msec P-R-T [place]: 53 - 32 - 31 degrees IMPRESSION: SINUS RHYTHM LEFT VENTRICULAR HYPERTROPHY AND ST-T CHANGE ??[VOLTAGE CRITERIA PLUS ST/T ABNORMALITY] ABNORMAL ECG Electronically Signed By: Holland Lew us Miesha Talamantes MD ECG ORDERABLES Final Re sult [facility] documented in this encounter Visit Diagnoses Diagnosis Tachycardia, paroxysmal (CMS/HCC) (HCC)- Primary Unspecified paroxysmal tachycardia documented in this encounter Active and Recently Administered Medications Times are shown in SPIRAL MACHINE OPERATOR. Scheduled Medication Order 05/14/2023 05/15/2023 05/16/2023 aspirin chewable tablet 324 mg 324 mg, oral, Once, On Sun05/15/23 at 2344, For 1 dose, Indications: Chest Pain 2344 (Hold - Provider: Abi Delcid RN - Reason: Other - Comment: waiting for provider) documented in this encounter Orders Medications Ordered That Luca ht Not Have Been Administered Count Last Ordered Date First Ordered Date aspirin chewable tablet 324 mg 1 05/15/2023 Nursing Count Last Ordered Date First Orde red Date MISCELLANEOUS NURSING CARE ORDER (SPECIFY) 1 05/15/2023 IV Count Last Ordered Date First Orde red Date SALINE LOCK IV 1 05/15/2023 documented in this encounter Care Teams Civil Process Server Relationship Specialty Start Date End Date Davin Estrada MD [address] [address] PCP - General Family Medicine 02/27/23 documented as of this encounter
--- OUTSIDE RECORDS SUMMARY | 2024-04-27 15:50 | XMS_ITS | Encounter Summary ---
Author Organization [employer] Care Team Providers Care Police Inspector Name Role Phone Davin Estrada MD Primary Care Provider [phone] Encounter Details Date Type Department Care Team (Latest Contact Info) Description 11/13/2022 Travel Social History Tobacco Use Types Packs/Day [...] on filedocumented in this encounter Care Teams Police Inspector Relationship Specialty Start Date End Date Davin Estrada MD [address] [address] PCP - General Family Medicine 11/13/22 documented as of this encounter
--- OUTSIDE RECORDS SUMMARY | 2024-04-27 15:50 | XMS_ITS | Encounter Summary ---
Author Organization [facility] Address [address] [place] [address] Phone Care Team Providers Care Airport Control Operator Name Role Phone Davin Estrada MD Primary Care Provider [phone] Reason for Visit * Auth/Cert (Routine) Specialty Diagnoses / Procedures Referred By Eron t Referred To Contact Diagnoses VISUALLY SIGNIFICANT CATARACT RIGHT EYE Procedures CATARACT EXTRACTION WITH IOL IMPLANT Neftali Malagon MD [address] [place] [address] Phone: tel: fax: Referral ID Status Reason Start Date Expiration Date Visits Re quested Visits Authorized [id number] 1 1 Encounter Details Date Type Department Care Team (Latest Contact Info) Description 12/18/2022 8:59 AM CDT - 12/18/2022 10:35 AM CDT Hospital Encounter [facility] Preop/Pacu II [address] [place] [id number] Neftali Malagon MD [address] [place] [address] Discharge Disposition: Discharged to home or Selfcare Social History Tobacco Use Types Packs/Day Years [...] suspected to have Coronavirus/COVID-19? No / Unsure 12/18/2022 8:59 AM CDT documented as of this encounter Last Filed Vital Signs Vital Sign Reading Time Taken Comments Blood Pressure 162/78 12/18/2022 10:32 AM CDT Pulse 82 12/18/2022 10:32 AM CDT Temperature 36.2 ??C (97.2 ??F) 12/18/2022 10:32 AM C DT Respiratory Rate 16 12/18/2022 10:32 AM CDT Oxygen Saturation 99% 12/18/2022 10:32 AM CDT Inhaled Oxygen Concentration - - Weight 59 kg (130 lb) 12/06/2022 11:00 AM CDT Height 157.5 cm (5' 2 ) 12/06/2022 11:00 AM CDT Body Mass Index 23.78 12/06/2022 11:00 AM CDT documented in this encounter Medications at Time of Discharge ALPRAZolam (XANAX) 0.25 MG Tablet Take 0.25 mg by mouth daily as needed. amitriptyline (ELAVIL) 10 MG Tablet Take 10 mg by mouth nightly as needed. ESZOPICLONE PO Take by mouth. losartan (COZAAR) 100 MG Tablet Take 100 mg by mouth daily. zolpidem (AMBIEN) 5 MG Tablet Take 5 mg by mouth nightly as needed. documented as of this encounter H&P Notes * Neftali Malagon MD - 12/18/2022 9:26 AM CDT I have reviewed Cele Salcido History and Physical, re-examined her, and no change has occurred inher condition since the H&P was completed. I have explained the risks, benefits, and alternatives of the procedure to the patient and family. They wish to proceed with procedure. Neftali Malagon MD 12/18/2022 9:26 AM CDT documented in this encounter Nursing Notes * Nanda Zimmerman RN - 12/18/2022 10:28 AM CDT WHO Safety Checklist Team Debriefing completed. Additional information discussed during debrief, inrelation to patient specific assessment, includes blood loss, glycemic control, pain management, and venous thromboembolism prophylaxis, as needed. All members of the surgical team participated in the debriefing process, and each records information as applicable in their respective areas of documen tation. documented in this encounter OR Notes * OR Surgeon - Neftali Malagon MD - 12/18/2022 10:29 AM CDT Patient: Cele Salcido 1945 [id number] Preoperative Diagnosis: Visually significant cataract Postoperative Diagnosis: Visually significant cataract Procedure: Cataract extraction with Intraocular Lens Placement LEFT eye Surgeon: Neftali Malagno MD Track Greaser: None Anesthesia: Monitored Anesthesia Care Implant: Implant Name Type Inv. Item Serial No. Improvement Coordinator Lot No. LRB No. Used Action TECHNIS 1-PIECE IOL WITH SIMPLICITY DELIVERY SYSTEM [id number] Right 1 Implanted Specimen: None Estimated Blood Loss: None Procedure in Detail: Please see full operative note for details Disposition: Patient was taken to Recovery in stable condition Neftali Malagon MD 12/18/2022 10:29 AM CDT documented in this encounter Miscellaneous Notes * Plan of Care - Jenna Snow RN - 12/18/2022 10:34 AM CDT Patient given 3 in [address] Malagon and followed by placement of pad and shield over operative eye. Discharge instructions reviewed with patient and understanding stated. Patient given bag with the 3 in 1 drop bottle to use for administration at home. Patient given the lens card and copy of discharge instructions. Patient taken to car in a wheelchair to be driven home by Lee. * Plan of Care - Kavitha Espinal RN - 12/18/2022 9:36 AM CDT Problem: Adult Inpatient Plan of Care Goal: Plan of Care Review Outcome: Ongoing (see interventions/notes) Flowsheets (Taken 12/18/2022935) Plan of Care Reviewed With: patient Progress: progress toward functional goals as expected Today's Goal: Go home today. Outcome Evaluation: Patient ready for OR. Does the patient need assistance with discharge and/or transitioning to the next level of care?: No, no needs anticipated Goal: Patient-Specific Goal (Individualized) Outcome: Ongoing (see interventions/notes) Flowsheets (Taken 12/18/2022935) Today's Goal: Go home today. Goal: Absence of Hospital-Acquired Illness or Injury Outcome: Ongoing (see interventions/notes) Intervention: Prevent and Manage VTE (Venous Thromboembolism) Risk Flowsheets (Taken 12/18/2022935) VTE Prevention/Management: ambulation encouraged Goal: Optimal Comfort and Wellbeing Outcome: Ongoing (see interventions/notes) Intervention: Provide Person-Centered Care Flowsheets (Taken 12/18/2022935) Trust Relationship/Rapport: care explained questions encouraged Goal: Readiness for Transition of Care Outcome: Ongoing (see interventions/notes) Intervention: Mutually Develop Transition Plan Flowsheets (Taken 12/18/2022935) Readmission Within the Last 30 Days: no previous admission in last 30 days * Jaye - Cara Reese RN - 12/06/2022 11:12 AM CDT [facility] ADULT TEACHING Patient Name: Cele Salcido : 1945 [facility]#: [id number] Person Educated Patient Ready to Learn Yes Teaching Method Phone The Day of Surgery: Call your physician if your physical condition changes (cold, fever, flu). Do not come to the hospital without first calling your physician. Do not eat or drink (no gum, mints, water etc.) unless instructed to do so for at least 8 hours prior to arrival to the hospital. Medications can be taken with a small sip of water. Do not drink any alcohol 24 hours prior to surgery if applicable. Do not smoke for 24 hrs prior to surgery if applicable. Bring CPAP/BIPAP if applicable. Take a shower or bath. Do not apply make-up Wear comfortable, loose fitting clothing Instruction to leave all jewelry at home including wedding/engagement rings or any body piercing jewelry. Leave all valuables at home. Children ages 17 and under must be accompanied by a parent or legal guardian in the hospital at alltimes. Follow your surgeon's instructions for arrival time. If you have questions concerning arrival time,call your surgeon's office. Detailed instructions given for arrival location and parking. Arrange for a responsible person to accompany you, drive you home and stay with you for the first 24 hours following your surgery. If you have not made these arrangements you may be at risk of your surgery being cancelled. Follow directions regarding medications to Take or Hold. It is very important to follow directions from your surgeon's office on Diabetic medication or Blood Thinners. Only 2 adults over the age of 16 will be allowed to accompany you to the [facility]. No children under theage of 16 will be allowed in the [facility] unless they are the patient. If the patient chooses to bring their children under the age of 16, an adult must accompany those children in the surgery waiting room and cannot leave them unattended. During the flu season: refer to the visitation restriction guidelines implemented during that season if applicable. Fall Prevention Teaching The Day of Surgery: ?? Your safety while you are in the hospital is very important to us. Following surgery, you might be at increased risk for falling for several reasons: -The hospital environment is unfamiliar. It???s not the same as being at home -You may be weaker than you realize. -You may be connected to lines or equipment that can cause you to trip. -You may be on medications that make you drowsy or dizzy. We know this can happen especially with pain medication and anesthesia. We want to partner with you in the hospital to make sure you are safe -Please do not feel hesitant to ask for help while in the hospital. You will - need extra help untilyou get stronger especially with walking and using the bathroom. -Pay close attention to what the doctors and nurses tell you about your risk of falling. -A fall can mean a longer hospital stay. Also, injuries from a fall can affect your health for the rest of your life. Some things the nurses may do to keep you safe are: -Have you use the call light for help whenever you get out of bed. -Wear non-skid slippers to keep you from slipping on the floors -Use a special belt that wraps around your waist so we can help steady you when you walk -Activate an alarm on your bed so we know if you are getting up in case you forget to use your calllight -Stay in the bathroom with you in case you become dizzy or light headed Patient Response: Verbalizes Understanding Patient assessed for director speech language during the preop interview and appropriate interventions taken if applicable. 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 Other and combined forms of senile cataract documented in this encounter Administered Medications Inactive Administered Medications - up to 3 most recent administrations Medication Order MAR Action Action Date Dose Rate Site moxifloxacin (VIGAMOX) 0.5 % solution 1 Drop 1 Drop, Right Eye, ONCE, 1 dose, On Sun12/18/22 at 0930, Instill One drop every 5 minutes to operative eye times 2 doses., PRE-OP (SURGERY) Given 12/18/2022 9:51 AM CDT 1 Drop Given 12/18/2022 9:40 AM CDT 1 Drop ondansetron (ZOFRAN) injection 4 mg 4 mg, Intravenous, ONCE PRN, 1 dose, Starting on Sun12/18/22 at 1023, Until Sun12/18/22 at 1236, Nausea - 1st line, First Line Antiemetic, PACU (I & II) proparacaine (ALCAINE) 0.5 % ophthalmic solution 1 Drop 1 Drop, Right Eye, ONCE, 1 dose, On Sun12/18/22 at 0930, Pre-op- Instill One drop every 5 minutes to operative eye times 2 doses. Intra-op- 1st round- Instill one drop in operative eye after entry into OR suite. Intra-op- 2nd round- Instill two drops in operative eye after site is prepped and draped by ., PRE-OP (SURGERY) Given 12/18/2022 10:22 AM CDT 2 Drops Given 12/18/2022 10:16 AM CDT 1 Drop Given 12/18/2022 9:51 AM CDT 1 Drop Tropicamide-Phenylephrine 1-2.5 % SOLN 1 Drop 1 Drop, Ophthalmic, ONCE, 1 dose, On Sun12/18/22 at 0930, Instill one drop in RIGHT eye every 5 mins times two, PRE-OP (SURGERY) Given 12/18/2022 9:52 AM CDT 1 Drop Given 12/18/2022 9:40 AM CDT 1 Drop documented in this encounter Active and Recently Administered Medications Times are shown in CDT. Scheduled Medication Order 12/16/2022 12/17/2022 12/18/2022 moxifloxacin (VIGAMOX) 0.5 % solution 1 Drop (COMPLETED) 1 Drop, Right Eye, ONCE, 1 dose, On Sun12/18/22 at 0930, Instill One drop every 5 minutes to operative eye times 2 doses., PRE-OP (SURGERY) 0940 (Given - Provid er: Kailee Gay RN)0951 (Given - Provider: Kailee Gay RN) proparacaine (ALCAINE) 0.5 % ophthalmic solution 1 Drop (COMPLETED) 1 Drop, Right Eye, ONCE, 1 dose, On Sun12/18/22 at 0930, Pre-op- Instill One drop every 5 minutes to operative eye times 2 doses. Intra-op- 1st round- Instill one drop in operative eye after entry into OR suite. Intra-op- 2nd round- Instill two drops in operative eye after site is prepped and draped by ., PRE-OP (SURGERY) 0940 (Given - Provid er: Kailee Gay RN)0951 (Given - Provider: Kailee Gay RN)1016 (Given - Provider: Nanda Zimmerman, SARAH)1022 (Given - Provider: Nanda Zimmerman RN) Tropicamide-Phenylephrine 1-2.5 % SOLN 1 Drop (COMPLETED) 1 Drop, Ophthalmic, ONCE, 1 dose, On Sun12/18/22 at 0930, Instill one drop in RIGHT eye every 5 mins times two, PRE-OP (SURGERY) 0940 (Given - Provid er: Kailee Gay RN)0952 (Given - Provider: Kailee Gay RN) PRN Medication Order 12/16/2022 12/17/2022 12/18/2022 balanced salts (BSS) solution SOLN (CANCELED) ONCE (in OR), Starting on Sun12/18/22 at 1028, Until Sun12/18/22 at 1028 1028 (Given - Provid er: Neftali Malagon MD) lidocaine-EPINEPHrine 2 %-[id number] injection (CANCELED) ONCE (in OR), Starting on Sun12/18/22 at 1023, Until Sun12/18/22 at 1028, INTRA-OP 1023 (Given - Provid er: Neftali Malagon MD) ondansetron (ZOFRAN) injection 4 mg 4 mg, Intravenous, ONCE PRN, 1 dose, Starting on Sun12/18/22 at 1023, Until Sun12/18/22 at 1236, Nausea - 1st line, First Line Antiemetic, PACU (I & II) documented in this encounter Care Teams Airport Control Operator Relationship Specialty Start Date End Date Davin Estrada MD [address] [address] PCP - General Family Medicine 11/13/22 documented as of this encounter
--- OUTSIDE RECORDS SUMMARY | 2024-04-27 15:50 | XMS_ITS | Encounter Summary ---
Author Organization [facility] Healthcare Address [address] [place] [id number] Care Team Providers Care Natural Resource Technician Name Role Phone Davin Estrada MD Primary Care Provider [phone] Encounter Details Date Type Department Care Team (Latest Contact Info) Description 05/31/2023 4:44 PM THERAPY SITE COORDINATOR - 05/31/2023 11:59 PM THERAPY SITE COORDINATOR Hospital Encounter [facility] Emergency, Room R Discharge Disposition: Discharge to home or self [...] on file Legal Sex Female 1:32 PM THERAPY SITE COORDINATOR Gender Identity Not on file Sexual Orientation Not on file documented as of this encounter Discharge Disposition Disposition Code Departure Means Destination Discharge to home or self care documented in this encounter Plan of Treatment Not on file documented as of this encounter Visit Diagnoses Not on filedocumented in this encounter Care Teams Natural Resource Technician Relationship Specialty Start Date End Date Davin Estrada MD [address] [address] PCP - General Family Medicine 02/27/23 documented as of this encounter
--- OUTSIDE RECORDS SUMMARY | 2024-04-27 15:50 | XMS_ITS | Encounter Summary ---
Author Organization [facility] Address [address] [facility] [place] [address] Phone Care Team Providers Care Baker Doughnut Name Role Phone Davin Estrada MD Primary Care Provider [phone] Reason for Visit * Auth/Cert (Routine) Specialty Diagnoses / Procedures Referred By Eron t Referred To Contact Diagnoses VISUALLY SIGNIFICANT CATARACT RIGHT EYE Procedures CATARACT EXTRACTION WITH IOL IMPLANT Neftali Malagon MD [address] [place] [address] Phone: tel: fax: Referral ID Status Reason Start Date Expiration Date Visits Re quested Visits Authorized [id number] 1 1 Encounter Details Date Type Department Care Team (Late st Contact Info) Description 12/18/2022 10:20 AM CDT Anesthesia Event [facility] Periop 1 [place] [address] Leroy Harrison APRN, STRAIGHT PIN MAKING MACHINE OPERATOR [address] [place] [address] Anesthesia Record Procedure Summary Procedure Name Responsible Anesthesiologist Anesthesia Start Time Anesthesia Stop Time CATARACT EXTRACTION WITH INTRAOCULAR LENS PLACEMENT, RIGHT EYE (Right: Eye) Leroy Harrison APRN, STRAIGHT PIN MAKING MACHINE OPERATOR 12/18/22 1020 12/18/22 1029 Events Date Time Event Comment 12/18/2022 0922 1020 An Start 1020 An Start Data 1020 ANASSESSCMPLT 1020 Start Supplemental O2 1020 Anesthesia Ready 1028 Stop Supplemental O2 1028 Stop Data Collection 1028 Transort to Postop 1029 Handoff to RN I completed my SBAR handoff to the receiving nurse. Last vitals BP: 154/88 Temp: 36.4 ??C (97.5 ??F) Pulse: 75 Resp: 20 SpO2: 98 % 1029 An Stop Last vitals: BP : 154/88 Temp: 36.4 ??C (97.5 ??F) Pulse: 75 Resp: 20 SpO2: 98 % Meds Name Total midazolam (VERSED) injection 1 mg/mL 2 m g ketamine 10 mg/mL 6 mg * Agents Name FiO2 (%) FexpO2 (%) ETCO2 (mmHg) * Blood No blood administrations on file. Lines, Drains, and Airways Type Details Placement Removal PIV-Single Lumen Placement Date: 12/18/22; Placement Time: 1008; Orientation: Posterior, Right; Location: Hand; Site Prep: Alcohol; Insertion Attempts: 1; Patient Tolerance: Tolerated well; Removal Date: 12/18/22; Removal Time: 1032 12/18/22 1008 by Kavitha Espinal RN 12/18/22 1032 by Jenna Snow RN documented in this encounter Social History [...] AM CDT documented as of this encounter OR Notes * Anesthesia Postprocedure Evaluation - Leroy Harrison, ALYSSIA, DANIELE - 12/18/2022 10:35 AM CDT Patient: Cele Salcido Procedure Summary Date: 12/18/22 Room / Location: [facility] MAIN OR 11 / [facility] Anesthesia Start: 1020 Anesthesia Stop: 1029 Procedure: CATARACT EXTRACTION WITH INTRAOCULAR LENS PLACEMENT, RIGHT EYE (Right: Eye) Diagnosis: (VISUALLY SIGNIFICANT CATARACT RIGHT EYE) Surgeons: Neftali Malagon MD Responsible Provider: Leroy Harrison APRN, CRNA Anesthesia Type: MAC ASA Status: 2 Anesthesia Type: MAC Last vitals Vitals Value Taken Time BP 162/78 12/18/22 1032 Temp 36.2 ??C (97.2 ??F) 12/18/22 1032 Pulse 82 12/18/22 1032 Resp 16 12/18/22 1032 SpO2 99 % 12/18/22 1032 Pain score: 0 Pain management: adequate Patient location during evaluation: ASU Patient participation: Sufficiently recovered to participate Level of consciousness: sleepy but conscious Cardiovascular status: acceptable Respiratory status: acceptable Hydration status: acceptable Anesthetic complications: no Airway patency: patent Nausea and Vomiting: none * Anesthesia Preprocedure Evaluation - Leroy Harrison APRN, CRNA - 12/18/2022 9:22 AM CDT Anesthesia Evaluation Procedure Information Date/Time: 12/18/22 1100 Procedure: CATARACT EXTRACTION WITH INTRAOCULAR LENS PLACEMENT, RIGHT EYE (Right) Location: [facility] MAIN OR 11 / [facility] Surgeons: Neftali Malagon MD Patient summary reviewed and Nursing notes reviewed No history of anesthetic complications No family history of anesthesia reaction Allergies: No Known Allergies Patient allergies reviewed. Medications: Current Facility-Administered Medications: ??? moxifloxacin (VIGAMOX) 0.5 % solution 1 Drop, 1 Drop, Right Eye, Once, Neftali Malagon MD ??? proparacaine (ALCAINE) 0.5 % ophthalmic solution 1 Drop, 1 Drop, Right Eye, Once, Neftali Malagon MD ??? Tropicamide-Phenylephrine 1-2.5 % SOLN 1 Drop, 1 Drop, Ophthalmic, Once, Neftali Malagon MD Medications Prior to Admission: ALPRAZolam (XANAX) 0.25 MG Tablet, Take 0.25 mg by mouth daily as needed., Disp: , Rfl: amitriptyline (ELAVIL) 10 MG Tablet, Take 10 mg by mouth nightly as needed., Disp: , Rfl: ESZOPICLONE PO, Take by mouth., Disp: , Rfl: losartan (COZAAR) 100 MG Tablet, Take 100 mg by mouth daily., Disp: , Rfl: zolpidem (AMBIEN) 5 MG Tablet, Take 5 mg by mouth nightly as needed., Disp: , Rfl: Patient medications reviewed. Airway Mallampati: II TM distance: <3 FB Neck ROM: full Dental - normal exam Pulmonary - negative ROS and normal exam breath sounds clear to auscultation Cardiovascular - normal exam Exercise tolerance: good (+) hypertension, Rhythm: regular Rate: normal Neuro/Psych - negative ROS GI/Hepatic/Renal Endo/Other Risks, benefits, alternatives discussed with:patient. Anesthesia Plan ASA 2 MAC intravenous induction Anesthetic plan and risks discussed with Patient. Plan discussed with STRAIGHT PIN MAKING MACHINE OPERATOR and surgeon. documented in this encounter Plan of Treatment Not on file documented as of this encounter Visit Diagnoses Not on filedocumented in this encounter Administered Medications Inactive Administered Medications - up to 3 most recent administrations Medication Order MAR Action Action Date Dose Rate Site ketamine (KETALAR) injection Intravenous, ONCE (in OR), Starting on Sun12/18/22 at 1021, Until Sun12/18/22 at 1032 Given 12/18/2022 10:21 AM CDT 6 mg midazolam (VERSED) injection Intravenous, ONCE (in OR), Starting on Sun12/18/22 at 1021, Until Sun12/18/22 at 1032 Given 12/18/2022 10:21 AM CDT 2 mg documented in this encounter Care Teams Baker Doughnut Relationship Specialty Start Date End Date Davin Estrada MD [address] [address] PCP - General Family Medicine 11/13/22 documented as of this encounter
--- OUTSIDE RECORDS SUMMARY | 2024-04-27 15:50 | XMS_ITS | Encounter Summary ---
Author Organization [facility] Healthcare Address [address] [place] [address] Care Team Providers Care Attorney Law Clerk Name Role Phone Davin Estrada MD Primary Care Provider [phone] Reason for Referral * Diagnostic Imaging (Routine) - Closed Specialty Diagnoses / Procedures Referred By Eron t Referred To Contact Diagnoses Encounter for gynecological examination (general) (routine) without abnormal findings Encounter for screening for osteoporosis Procedures Dexa Axial Skeleton Bone Density 1 or 2 Site Angela Alcocer NP [address] [address] Phone: tel: [address] [phone] Referral ID Status Reason Start Date Expiration Date Visits Re quested Visits Authorized [id number] Closed 02/27/2023 03/28/2024 1 1 IC SERVICE DIRECTOR Reason for Visit * Diagnostic Imaging (Routine) - Closed Specialty Diagnoses / Procedures Referred By Contac t Referred To Contact Diagnoses Encounter for gynecological examination (general) (routine) without abnormal findings Encounter for screening for osteoporosis Procedures Dexa Axial Skeleton Bone Density 1 or 2 Site Angela Alcocer NP [address] [facility] [address] [place] [address] Phone: tel: [address] [phone] Referral ID Status Reason Start Date Expiration Date Visits Re quested Visits Authorized [id number] Closed 02/27/2023 03/28/2024 1 1 Encounter Details Date Type Department Care Team (Latest Contact Info) Description 03/06/2023 8:00 AM PUBLIC SERVICE DIRECTOR - 03/06/2023 11:59 PM PUBLIC SERVICE DIRECTOR Hospital Encounter [facility] 1 [place] [address] Encounter for gynecological examination (general) (routine) without abnormal findings; Encounter for screening for osteoporosis Discharge Disposition: Discharge to home or self care Social History Tobacco Use Types Packs/Day Years Used Date Smoking Tobacco: Never Assessed Comments No Sex and Gender Information Value Date Recorded Sex Assigned at Not on file Legal Sex Female 1:32 PM PUBLIC SERVICE DIRECTOR Gender Identity Not on file Sexual Orientation Not on file documented as of this encounter Discharge Disposition Disposition Code Departure Means Destination Discharge to home or self care documented in this encounter Plan of Treatment Not on file documented as of this encounter Procedures Procedure Name Priority Date/Time Associated Diagnosis Comments DEXA AXIAL SKELETON BONE DENSITY 1 OR MORE SITES Schedule Routine, Read Routine (OP Routine) 03/06/2023 8:17 AM PUBLIC SERVICE DIRECTOR Encounter for gynecological examination (general) (routine) without abnormal findings Encounter for screening for osteoporosis documented in this encounter Results * Dexa Axial Skeleton Bone Density 1 or 2 Site (03/06/2023 8:17 AM PUBLIC SERVICE DIRECTOR) Anatomical Region Laterality Modality Body N/A Other 03/07/2023 1:29 PM PUBLIC SERVICE DIRECTOR Narrative 03/07/2023 1:35 PM PUBLIC SERVICE DIRECTOR EXAM DESCRIPTION: DEXA AXIAL SKELETON BONE DENSITY 1 OR MORE SITES REASON FOR STUDY: 77 ??year old ??postmenopausal white female ??with given history of: ??Z01.419, Z13.820 ?? screening ? 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 [...] PM T: ??03/07/2023 1:35 PM Report ID: [id number] Reading Location: ??[id number] Procedure Note Omid Nair MD - 03/07/2023 EXAM DESCRIPTION: DEXA AXIAL SKELETON BONE DENSITY 1 OR MORE SITES REASON FOR STUDY: 77 year old postmenopausal white female with given history of: Z01.419, Z13.820 screening Bung Sewer/Model: [employer] (S/N [id number]) CLINICAL INFORMATION: Current height: 63 inches Maximum [...] Omid Nair M.D. RB: GO Report ID: [id number] Reading Location: [id number] Angela Alcocer COVER CUTTER IMG DXA PROCEDURES Final Resu lt documented in this encounter Visit Diagnoses Diagnosis Encounter for gynecological examination (general) (routine) without abnormal findings Encounter for screening for osteoporosis documented in this encounter Care Teams Attorney Law Clerk Relationship Specialty Start Date End Date Davin Estrada MD [address] [address] PCP - General Family Medicine 02/27/23 documented as of this encounter
--- OUTSIDE RECORDS SUMMARY | 2024-04-27 15:50 | XMS_ITS | Clinical Summary ---
Author Organization [facility] Address [address] [place] [address] Care Team Providers Care Asphalt Surface Heater Operator Name Role Phone Davin Estrada MD Primary Care Provider [phone] Allergies No known active allergies Medications No known medications Surgical History Surgery Date Site/Laterality Comments HYSTERECTOMY 04/23/1985 - 04/22/1986 OOPHORECTOMY 04/23/1985 - 04/22/1986 Medical History Medical History Date Comments Ovarian cancer (HCC) 1985 History of chemotherapy 1985 ovarian ca Family History Medical History Relation Name Comments Breast cancer Paternal Grandmother Ovarian cancer Neg Hx Thyroid cancer Neg Hx Relation Name Status Comments Paternal Grandmother Social History Tobacco Use Types Packs/Day Years [...] on file Legal Sex Female 1:32 PM DRY DIP WORKER Gender Identity Not on file Sexual Orientation Not on file Obstetrics History Para Term AB IAB SAB Ectopic Multiple Livin g Live Births 3 2 2 Date Outcome GA Total Labor Labor/2nd/3rd Weight Sex Type Anes PTL Yasmin A1 A5 Name Clin Term Term Last Filed Vital Signs Vital Sign Reading Time Taken Comments Blood Pressure 149/71 05/16/2023 2:45 AM DRY DIP WORKER Pulse 71 05/16/2023 2:45 AM DRY DIP WORKER Temperature 36.3 ??C (97.3 ??F) 05/15/2023 11:[address] Respiratory Rate 16 05/16/2023 2:45 AM DRY DIP WORKER Oxygen Saturation 97% 05/16/2023 2:45 AM DRY DIP WORKER Inhaled Oxygen Concentration - - Weight 58.5 kg (129 lb) 05/15/2023 11:36 PM DRY DIP WORKER Height 160 cm (5' 3 ) 10/17/2023 2:03 PM CDT Body Mass Index 22.85 05/15/2023 11:36 PM DRY DIP WORKER Plan of Treatment Health Maintenance Due Date Last Done Comments Depression Screening 1945 Fall Risk Assessment 1945 Hepatitis C Screening 1945 DTaP/Tdap/Td Vaccine (1 - Tdap) 1956 Hepatitis B Screening 12/12/1963 Well Visit 65+ 2010 Zoster Vaccine (2 of 3) 03/23/2014 01/26/2014 Pneumococcal vaccine 65+ (2 of 2 - PPSV23 or PCV20) 02/07/2020 02/06/2019 Influenza Vaccine (#1) 2023 9, 01/21/2018, 01/19/2017, Additional history exists Osteoporosis Screening-Bone Density Scan 03/06/2025 03/06/2023, 05/19/2020 Breast Cancer Screening-Mammogram Discontinued 10/17/2023, 09/11/2022, 07/25/2021, Additional history exists Procedures Procedure Name Priority Date/Time Associated Diagnosis Comments SCREENING MAMMOGRAM BILATERAL [facility] [place] Schedule Routine, Read Routine (OP Routine) 10/17/2023 2:13 PM CDT Screening mammogram, encounter for DEXA AXIAL SKELETON BONE DENSITY 1 OR MORE SITES Schedule Routine, Read Routine (OP Routine) 03/06/2023 8:17 AM DRY DIP WORKER Encounter for gynecological examination (general) (routine) without [...] 1 or 2 Site (03/06/2023 8:17 AM DRY DIP WORKER) Anatomical Region Laterality Modality Body N/A Other 03/07/2023 1:29 PM DRY DIP WORKER Narrative 03/07/2023 1:35 PM DRY DIP WORKER EXAM DESCRIPTION: DEXA AXIAL SKELETON BONE DENSITY 1 OR MORE SITES REASON FOR STUDY: 77 ??year old ??postmenopausal white female ??with given history of: ??Z01.419, Z13.820 ?? screening ? Press Cutter/Model: [employer] (S/N [id number]) CLINICAL INFORMATION: Current height: ??63 ??inches ? [...] PM T: ??03/07/2023 1:35 PM Report ID: [id number] Reading Location: ??[id number] Procedure Note Omid Nair MD - 03/07/2023 EXAM DESCRIPTION: DEXA AXIAL SKELETON BONE DENSITY 1 OR MORE SITES REASON FOR STUDY: 77 year old postmenopausal white female with given history of: Z01.419, Z13.820 screening Press Cutter/Model: [employer] SL (S/N [id number]) CLINICAL INFORMATION: Current height: 63 inches Maximum [...] Omid Nair M.D. RB: GO Report ID: [id number] Reading Location: [place] [address] Angela Alcocer NP IMG DXA PROCEDURES Final Resu lt from Last 3 Months or Most Recently Relevant to Health Maintenance Insurance MEDICARE [facility] Address: [address] [address] [place] [address] [facility] MEDICARE COMM[facility]CIAL [facility] MEDICARE [facility] Care Teams Asphalt Surface Heater Operator Relationship Specialty Start Date End Date Davin Estrada MD [address] [address] PCP - General Family Medicine 02/27/23
--- OUTSIDE RECORDS SUMMARY | 2024-04-27 15:50 | XMS_ITS | Encounter Summary ---
Author Organization [facility] Healthcare Address [address] [place] [address] Care Team Providers Care Residential Director Name Role Phone Davin Estrada MD Primary Care Provider [phone] Encounter Details Date Type Department Care Team (Late st Contact Info) Description 05/18/2020 Telephone [facility] [address] [place] [address] Veronica Vargas, RT Social History Tobacco Use Types Packs/Day Years Used Date Smoking Tobacco: Never Assessed Comments No Sex and Gender Information Value Date Recorded Sex Assigned at Not on file Legal Sex Female 1:32 PM FORMING TUBE SELECTOR Gender Identity Not on file Sexual Orientation Not on file documented as of this encounter Plan of Treatment Not on file documented as of this encounter Visit Diagnoses Not on filedocumented in this encounter Care Teams Residential Director Relationship Specialty Start Date End Date Davin Estrada MD [address] [address] PCP - General Family Medicine 02/27/23 documented as of this encounter
--- OUTSIDE RECORDS SUMMARY | 2024-04-27 15:50 | XMS_ITS | Encounter Summary ---
Author Organization [facility] Address [address] [place] [address] Care Team Providers Care Vegetable Farming Supervisor Name Role Phone Unavailable Primary Care Provider Unavailabl e Reason for Referral * Diagnostic Imaging (Routine) - Closed Specialty Diagnoses / Procedures Referred By Eron bullock Referred To Contact Diagnoses Encounter for screening mammogram for malignant neoplasm of breast Procedures Screening Mammogram Bilateral [address] [place] Screening Mammogram, Self [address] [address] Referral ID Status Reason Start Date Expiration Date Visits Re quested Visits Authorized [id number] Closed 03/18/2019 09/26/2020 1 1 [place] Reason for Visit * Diagnostic Imaging (Routine) - Closed Specialty Diagnoses / Procedures Referred By Eron bullock Referred To Contact Diagnoses Encounter for screening mammogram for malignant neoplasm of breast Procedures Screening Mammogram Bilateral [address] [place] Screening Mammogram, Self [address] [address] Referral ID Status Reason Start Date Expiration Date Visits Re quested Visits Authorized [id number] Closed 03/18/2019 09/26/2020 1 1 Encounter Details Date Type Department Care Team (Latest Contact Info) Description 04/25/2019 7:31 AM [facility] [place] - 04/25/2019 11:59 PM [facility] [place] Hospital Encounter [facility] [address] [place] [address] Screening Mammogram, Self Encounter for screening mammogram for malignant neoplasm of breast Discharge Disposition: Discharge to home or self care Social History Tobacco Use Types Packs/Day Years Used Date Smoking Tobacco: Never Assessed Comments No Sex and Gender Information Value Date Recorded Sex Assigned at Not on file Legal Sex Female 1:32 PM [place]ECT[place] Gender Identity Not on file Sexual Orientation Not on file documented as of this encounter Discharge Disposition Disposition Code Departure Means Destination Discharge to home or self care documented in this encounter Plan of Treatment Not on file documented as of this encounter Procedures Procedure Name Priority Date/Time Associated Diagnosis Comments SCREENING MAMMOGRAM BILATERAL W [place] Schedule Routine, Read Routine (OP Routine) 04/25/2019 7:43 AM [place] Encounter for screening mammogram for malignant neoplasm of breast documented in this encounter Results * Screening Mammogram Bilateral [address] [place] (04/25/2019 7:43 AM [place]) Anatomical Region Laterality Modality Breast Bilateral Mammography 04/25/2019 3:00 PM [place] Impressions 04/25/2019 3:03 PM [place] There is no mammographic evidence of malignancy. A 1 year screening mammogram is recommended. BI-RADS: 1 - Negative. The patient has been or will be contacted. The patient will be entered into a reminder system with a target due date of 1 year for her next mammogram. Electronically signed by: Isrrael Rincon M.D. Narrative 04/25/2019 3:03 PM [place] EXAMINATION: SCREENING MAMMOGRAM BILATERAL [facility] [place] ORDERING HEALTHCARE PROVIDER: SELF SCREENING MAMMOGRAM HISTORY: Routine screening mammography. COMPARISON: ??03/25/2018, 03/05/2017, 02/17/2016. TECHNIQUE: CC and MLO views of the [...] encounter Visit Diagnoses Diagnosis Encounter for screening mammogram for malignant neoplasm of breast documented in this encounter
--- OUTSIDE RECORDS SUMMARY | 2024-04-27 15:50 | XMS_ITS | Clinical Summary ---
Author Organization [facility] Address [address] [place] [address] Phone Care Team Providers Care Barrel Plater Name Role Phone Davin Esrtada MD Primary Care Provider [phone] Allergies No known active allergies Medications amitriptyline (ELAVIL) 10 MG Tablet Take 10 mg by mouth nightly as needed. Active losartan (COZAAR) 100 MG Tablet Take 100 mg by mouth daily. Active ALPRAZolam (XANAX) 0.25 MG Tablet Take 0.25 mg by mouth daily as needed. Active zolpidem (AMBIEN) 5 MG Tablet Take 5 mg by mouth nightly as needed. Active ESZOPICLONE PO Take by mouth. Active Active Problems No known active problems Family History Medical History Relation Name Comments Heart Disease Father Relation Name Status Comments Father Mother Social History Tobacco Use Types Packs/Day Years Used Date Smoking Tobacco: Never Smokeless Tobacco: Never Tobacco Cessation:Counseling Given: Not Answered Alcohol Use Standard Drinks/Week Comments Yes 7 [...] Mass Index 23.78 12/06/2022 11:00 AM CDT Plan of Treatment Health Maintenance Due Date Last Done Comments DEXA Bone Density 1945 Hepatitis C Virus (HCV) Screening 1945 TdaP Immunization 1945 Zoster Immunization (2 of 3) 03/23/2014 01/26/2014 Respiratory Syncytial Virus (RSV) Immunization (Adult) (1 - 1-dose 75+ series) 2020 Influenza Immunization (#1) 12/23/202312/23, 01/31/2021, 01/19/2020, Additional history exists SARS-COV-2 Immunization () 12/23/2023 01/16/2022, 07/28/2021, 02/14/2021, Additional history exists Pneumococcal Immunization (50+ years) Completed 01/19/2020, 02/06/2019 Hepatitis B Immunization Aged Out No longer eligible based on patient's age to complete this topic Meningococcal Immunization (ACWY) Aged Out No longer eligible based on patient's age to complete this topic Rotavirus Immunization Aged Out No lo nger eligible based on patient's age to complete this topic Medical Devices Implanted Type Area Robotic Welding Operator Device Identifier Shelf Expiration Date Model / Serial / Lot [employer] Charan Tecnis 1 Piece Iol Implanted:Qty: 1 on 11/13/2022 by Neftali Malagon MD at [facility] Left: Eye [employer] 08/04/2025 [id number] / [id number] / [id number] Technis 1-Piece Iol With Simplicity Delivery System Implanted:Qty: 1 on 12/18/2022 by Neftali Malagon MD at [facility] Right: Eye 02/21/2025 [id number] / [id number] / [id number] Insurance MEDICARE [facility] Care Teams Barrel Plater Relationship Specialty Start Date End Date Davin Estrada MD [address] [address] PCP - General Family Medicine 11/13/22
--- OUTSIDE RECORDS SUMMARY | 2024-04-27 15:50 | XMS_ITS | Encounter Summary ---
Author Organization [facility] Address [address] [place] [address] Phone Care Team Providers Care Certified Activities Director Name Role Phone Davin Estrada MD Primary Care Provider [phone] Reason for Visit * Auth/Cert (Routine) Specialty Diagnoses / Procedures Referred By Eron t Referred To Contact Diagnoses VISUALLY SIGNIFICANT CATARACT, LEFT EYE Procedures CATARACT EXTRACTION WITH IOL IMPLANT Neftali Malagon MD [address] [place] [address] Phone: tel: fax: Referral ID Status Reason Start Date Expiration Date Visits Re quested Visits Authorized [id number] 1 1 Encounter Details Date Type Department Care Team (Latest Contact Info) Description 11/13/2022 9:56 AM CDT - 11/13/2022 11:13 AM CDT Hospital Encounter [facility] Preop/Pacu II [address] [place] [id number] Neftali Malagon MD [address] [place] [address] Discharge Disposition: Discharged to home or Selfcare [...] Recorded In the last 10 days, have keily chen been in contact with someone who was confirmed or suspected to have Coronavirus/COVID-19? No / Unsure 11/13/2022 9:57 AM CDT documented as of this encounter Last Filed Vital Signs Vital Sign Reading Time Taken Comments Blood Pressure 172/86 11/13/2022 11:07 AM CDT Pulse 75 11/13/2022 11:07 AM CDT Temperature 36.3 ??C (97.3 ??F) 11/13/2022 11:07 AM C DT Respiratory Rate 16 11/13/2022 11:07 AM CDT Oxygen Saturation 98% 11/13/2022 11:07 AM CDT Inhaled Oxygen Concentration - - Weight 59 kg (130 lb) 11/08/2022 9:00 AM CDT Height 160 cm (5' 3 ) 11/08/2022 9:00 AM CDT Body Mass Index 23.03 11/08/2022 9:00 AM CDT documented in this encounter Medications [...] H&P Notes * Neftali Malagon MD - 11/13/2022 11:13 AM CDT I have reviewed Cele Salcido History and Physical, re-examined her, and no change has occurred inher condition since the H&P was completed. I have explained the risks, benefits, and alternatives of the procedure to the patient and family. They wish to proceed with procedure. Neftali Malagon MD 12/18/2022 2:33 PM CDT documented in this encounter Nursing Notes * Zully Ramírez RN - 11/13/2022 11:01 AM CDT WHO Safety Checklist Team Debriefing completed. Additional information discussed during debrief, inrelation to patient specific assessment, includes blood loss, glycemic control, pain management, and venous thromboembolism prophylaxis, as needed. All members of the surgical team participated in the debriefing process, and each records information as applicable in their respective areas of documen tation. * Zully Ramírez RN - 11/13/2022 10:52 AM CDT Upon entry into OR suite, betadine 5% one drop instilled into OPERATIVE eye as per ordered. After patient prepped and draped by MD, betadine 5% two drops instilled into OPERATIVE eye as per ordered. documented in this encounter OR Notes * OR Neftali Phillips MD - 11/13/2022 11:03 AM CDT Patient: Cele Salcido 1945 [id number] Preoperative Diagnosis: Visually significant cataract Postoperative Diagnosis: Visually significant cataract Procedure: Cataract extraction with Intraocular Lens Placement LEFT eye Surgeon: Neftali Malagon MD Loan Examiner: None Anesthesia: Monitored Anesthesia Care Implant: * No implants in log * Specimen: None Estimated Blood Loss: None Procedure in Detail: Please see full operative note for details Disposition: Patient was taken to Recovery in stable condition Neftali Malagon MD 11/13/2022 11:03 AM CDT * OR Neftali Phillips MD - 11/13/2022 10:24 AM CDT Patient: Cele Salcido 1945 [id number] Preoperative Diagnosis: Visually significant cataract Postoperative Diagnosis: Visually significant cataract Procedure: Cataract extraction with Intraocular Lens Placement LEFT eye Surgeon: Neftali Malagon MD Loan Examiner: None Anesthesia: Monitored Anesthesia Care Implant: * No implants in log * Specimen: None Estimated Blood Loss: None Procedure in Detail: Please see full operative note for details Disposition: Patient was taken to Recovery in stable condition Neftali Malagon MD 11/13/2022 10:24 AM CDT documented in this encounter Miscellaneous Notes * Plan of Care - Jenna Snow RN - 11/13/2022 11:14 AM CDT Patient given 3 in 1 [...] of Care - Kavitha Espinal RN - 11/13/2022 10:24 AM CDT Problem: Adult Inpatient Plan of Care Goal: Plan of Care Review Outcome: Ongoing (see interventions/notes) Flowsheets (Taken 11/13/2022 1023) Plan of Care Reviewed With: patient Progress: progress toward functional goals as expected Today's Goal: Go home today. Outcome Evaluation: Patient ready for OR. Does the patient need assistance with discharge and/or transitioning to the next level of care?: No, no needs anticipated Goal: Patient-Specific Goal (Individualized) Outcome: Ongoing (see interventions/notes) Flowsheets (Taken 11/13/2022 1023) Today's Goal: Go home today. Goal: Absence of Hospital-Acquired Illness or Injury Outcome: Ongoing (see interventions/notes) Intervention: Prevent and Manage VTE (Venous Thromboembolism) Risk Flowsheets (Taken 11/13/2022 1023) VTE Prevention/Management: ambulation encouraged Goal: Optimal Comfort and Wellbeing Outcome: Ongoing (see interventions/notes) Intervention: Provide Person-Centered Care Flowsheets (Taken 11/13/2022 1023) Trust Relationship/Rapport: care explained questions encouraged Goal: Readiness for Transition of Care Outcome: Ongoing (see interventions/notes) Intervention: Mutually Develop Transition Plan Flowsheets (Taken 11/13/2022 1023) Readmission Within the Last 30 Days: no previous admission in last 30 days * Interdisciplinary - Cara Reese RN - 11/08/2022 10:10 AM CDT [facility] ADULT TEACHING Patient Name: Cele Salcido : 1945 [facility]#: [id number] Person Educated Patient Ready to Learn Yes [...] be allowed to accompany you to the [facility]. No children under theage of 16 will be allowed in the [facility] unless they are the patient. If the [...] Patient Response: Verbalizes Understanding Patient assessed for speech language pathology assistant during the preop interview and appropriate interventions taken if applicable. 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 Other and combined forms of senile cataract documented in this encounter Administered Medications Inactive Administered Medications - up to 3 most recent administrations Medication Order MAR Action Action Date Dose Rate Site moxifloxacin (VIGAMOX) 0.5 % solution 1 Drop 1 Drop, Left Eye, ONCE, 1 dose, On Sun11/13/22 at 1030, Instill One drop every 5 minutes to operative eye times 2 doses., PRE-OP (SURGERY) Given 11/13/2022 10:17 AM CDT 1 Drop Given 11/13/2022 10:15 AM CDT 1 Drop proparacaine (ALCAINE) 0.5 % ophthalmic solution 1 Drop 1 Drop, Left Eye, ONCE, 1 dose, On Sun11/13/22 at 1030, Pre-op- Instill One drop every 5 minutes to operative eye times 2 doses. Intra-op- 1st round- Instill one drop in operative eye after entry into OR suite. Intra-op- 2nd round- Instill two drops in operative eye after site is prepped and draped by ., PRE-OP (SURGERY) Given 11/13/2022 10:51 AM CDT 2 Drops Operative Site Given 11/13/2022 10:47 AM CDT 1 Drop O perative Site Given 11/13/2022 10:18 AM CDT 1 Drop Tropicamide-Phenylephrine 1-2.5 % SOLN 1 Drop 1 Drop, Ophthalmic, ONCE, 1 dose, On Sun11/13/22 at 1030, Instill one drop in left eye every 5 mins times two, PRE-OP (SURGERY) Given 11/13/2022 10:1 8 AM CDT 1 Drop Given 11/13/2022 10:15 AM CDT 1 Drop documented in this encounter Active and Recently Administered Medications Times are shown in CDT. Scheduled Medication Order 11/11/2022 11/12/2022 11/13/2022 moxifloxacin (VIGAMOX) 0.5 % solution 1 Drop (COMPLETED) 1 Drop, Left Eye, ONCE, 1 dose, On Sun11/13/22 at 1030, Instill One drop every 5 minutes to operative eye times 2 doses., PRE-OP (SURGERY) 1015 (Given - Provid er: Kailee Gay RN)1017 (Given - Provider: Kailee Gay RN) proparacaine (ALCAINE) 0.5 % ophthalmic solution 1 Drop (COMPLETED) 1 Drop, Left Eye, ONCE, 1 dose, On Sun11/13/22 at 1030, Pre-op- Instill One drop every 5 minutes to operative eye times 2 doses. Intra-op- 1st round- Instill one drop in operative eye after entry into OR suite. Intra-op- 2nd round- Instill two drops in operative eye after site is prepped and draped by ., PRE-OP (SURGERY) 1015 (Given - Provid er: Kailee Gay, SARAH)1018 (Given - Provider: Kailee Gay, RN)1047 (Given - Provider: Zully Ramírez, RN)1051 (Given - Provider: Zully Ramírez RN) Tropicamide-Phenylephrine 1-2.5 % SOLN 1 Drop (COMPLETED) 1 Drop, Ophthalmic, ONCE, 1 dose, On Sun11/13/22 at 1030, Instill one drop in left eye every 5 mins times two, PRE-OP (SURGERY) 1015 (Given - Provid er: Kailee Gay RN)1018 (Given - Provider: Kailee Gay RN) PRN Medication Order 11/11/2022 11/12/2022 11/13/2022 lidocaine-EPINEPHrine 2 %-[id number] injection (CANCELED) ONCE (in OR), Starting on Sun11/13/22 at 1106, Until Sun11/13/22 at 1107, INTRA-OP 1106 (Given - Provid er: Neftali Malagon MD) documented in this encounter Care Teams Certified Activities Director Relationship Specialty Start Date End Date Davin Estrada MD [address] [address] PCP - General Family Medicine 11/13/22 documented as of this encounter
--- OUTSIDE RECORDS SUMMARY | 2024-04-27 15:50 | XMS_ITS | Encounter Summary ---
Author Organization [facility] Healthcare Address [address] [place] [address] Care Team Providers Care Marine Welder Name Role Phone Unavailable Primary Care Provider Unavailabl e Reason for Referral * Diagnostic Imaging (Routine) - Closed Specialty Diagnoses / Procedures Referred By Contac t Referred To Contact Diagnoses Screening mammogram, encounter for Procedures Screening Mammogram Bilateral [place] Screening Mammogram, [address] [address] Referral ID Status Reason Start Date Expiration Date Visits Re quested Visits Authorized [id number] Closed 06/23/2021 07/23/2022 1 1 * Diagnostic Imaging (Routine) - Closed Specialty Diagnoses / Procedures Referred By Contac t Referred To Contact Diagnoses Screening mammogram, encounter for Procedures Screening Mammogram Bilateral [place] Screening Mammogram, [address] [address] Referral ID Status Reason Start Date Expiration Date Visits Re quested Visits Authorized [id number] Closed 06/23/2021 07/23/2022 1 1 [facility] Reason for Visit * Diagnostic Imaging (Routine) - Closed Specialty Diagnoses / Procedures Referred By Contac t Referred To Contact Diagnoses Screening mammogram, encounter for Procedures Screening Mammogram Bilateral [place] Screening Mammogram, [address] [address] Referral ID Status Reason Start Date Expiration Date Visits Re quested Visits Authorized [id number] Closed 06/23/2021 07/23/2022 1 1 Encounter Details Date Type Department Care Team (Latest Contact Info) Description 07/25/2021 7:38 AM CDT - 07/25/2021 11:59 PM CDT Hospital Encounter [facility] [address] [place] [address] Screening Mammogram, Self Screening mammogram, encounter for Discharge Disposition: Discharge to home or self care Social History Tobacco Use Types Packs/Day Years Used Date Smoking Tobacco: Never Assessed Comments No Sex and Gender Information Value Date Recorded Sex Assigned at Not on file Legal Sex Female 1:32 PM [facility] Gender Identity Not on file Sexual Orientation Not on file documented as of this encounter Discharge Disposition Disposition Code Departure Means Destination Discharge to home or self care documented in this encounter Plan of Treatment Not on file documented as of this encounter Procedures Procedure Name Priority Date/Time Associated Diagnosis Comments SCREENING MAMMOGRAM BILATERAL [facility] Schedule Routine, Read Routine (OP Routine) 07/25/2021 7:57 AM CDT Screening mammogram, encounter for documented in this encounter Results * Screening Mammogram Bilateral [place] (07/25/2021 7:57 AM CDT) Anatomical Region Laterality Modality Breast Bilateral Mammography 07/25/2021 10:3 3 AM CDT Impressions 07/25/2021 10:33 AM CDT There is no mammographic evidence of malignancy. Routine screening mammography is recommended in 1 year. BI-RADS: 1 - Negative. The patient will be entered into a reminder system with a target due date of 1 year for her next mammogram. Electronically signed by: Isrrael Rincon M.D. Narrative 07/25/2021 10:33 AM CDT EXAMINATION: SCREENING MAMMOGRAM BILATERAL [facility] [place] ORDERING HEALTHCARE PROVIDER: SELF SCREENING MAMMOGRAM HISTORY: Routine screening mammography. COMPARISON: ??05/19/2020, 04/25/2019, 03/05/2017, 02/17/2016. TECHNIQUE: CC and MLO views [...]
--- OUTSIDE RECORDS SUMMARY | 2024-04-27 15:50 | XMS_ITS | Encounter Summary ---
Author Organization [facility] Address [address] [place] [address] Phone Care Team Providers Care Take Away Worker Name Role Phone Davin Estrada MD Primary Care Provider [phone] Reason for Visit * Auth/Cert (Routine) Specialty Diagnoses / Procedures Referred By Eron t Referred To Contact Diagnoses VISUALLY SIGNIFICANT CATARACT, LEFT EYE Procedures CATARACT EXTRACTION WITH IOL IMPLANT Neftali Malagon MD [address] [place] [address] Phone: tel: fax: Referral ID Status Reason Start Date Expiration Date Visits Re quested Visits Authorized [id number] 1 1 Encounter Details Date Type Department Care Team (Late st Contact Info) Description 11/13/2022 10:53 AM CDT [facility] [address] [place] [address] Anurag Hadley APRN, CRNA [address] [place] [address] Anesthesia Record Procedure Summary Procedure Name Responsible Anesthesiologist Anesthesia Start Time Anesthesia Stop Time CATARACT EXTRACTION WITH INTRAOCULAR LENS PLACEMENT, LEFT EYE (Left: Eye) Anurag Hadley APRN, CRNA 11/13/22 1053 11/13/22 1102 Events Date Time Event Comment 11/13/2022 1002 1053 An Start 1053 An Start Data 1054 ANASSESSCMPLT 1054 Start Supplemental O2 1054 Anesthesia Ready 1101 Stop Supplemental O2 1101 Stop Data Collection 1101 Transort to Postop 1102 Handoff to RN I completed my SBAR handoff to the receiving nurse. Last vitals BP: 170/81 Temp: 36.6 ??C (97.9 ??F) Pulse: 75 Resp: 18 SpO2: 97 % 1102 An Stop Last vitals: BP : 170/81 Temp: 36.6 ??C (97.9 ??F) Pulse: 75 Resp: 18 SpO2: 97 % Meds Name Total midazolam (VERSED) injection 1 mg/mL 2 m g ketamine 10 mg/mL 5 mg * Agents Name FiO2 (%) FexpO2 (%) ETCO2 (mmHg) * Blood No blood administrations on file. Lines, Drains, and Airways Type Details Placement Removal PIV-Single Lumen Placement Date: 11/13/22; Placement Time: 1012; Catheter Size: 22 G; Orientation: Posterior, Right; Location: Hand; Site Prep: Alcohol; Local Anesth: None; Technique: Anatomical landmarks; Inserted by: Avila Castillo RN; Insertion Attempts: 1; Patient Tolerance: Tolerated well; Removal Date: 11/13/22; Removal Time: 1110 11/13/22 1012 by Kailee Gay RN 11/13/22 1110 by Jenna Snow RN documented in this [...] OR Notes * Anesthesia Postprocedure Evaluation - Anurag Hadley APRN, CRNA - 11/13/2022 11:15 AM CDT Patient: Cele Salcido Procedure Summary Date: 11/13/22 Room / Location: [facility] MAIN OR 08 / [facility] Anesthesia Start: 1053 Anesthesia Stop: 1102 Procedure: CATARACT EXTRACTION WITH INTRAOCULAR LENS PLACEMENT, LEFT EYE (Left: Eye) Diagnosis: (VISUALLY SIGNIFICANT CATARACT, LEFT EYE) Surgeons: Neftali Malagon MD Responsible Provider: Anurag Hadley APRN, CRNA Anesthesia Type: MAC ASA Status: 2 Anesthesia Type: MAC Last vitals Vitals Value Taken Time BP 172/86 11/13/22 1107 Temp 36.3 ??C (97.3 ??F) 11/13/22 1107 Pulse 75 11/13/22 1107 Resp 16 11/13/22 1107 SpO2 98 % 11/13/22 1107 Pain score: 0 Pain management: adequate Patient location during evaluation: ASU Patient participation: Fully recovered to participate Level of consciousness: awake Cardiovascular status: acceptable Respiratory status: acceptable Hydration status: acceptable Comments: VS per RN flow sheet Anesthetic complications: no Airway patency: patent Nausea and Vomiting: none * Anesthesia Preprocedure Evaluation - Anurag Hadley APRN, CRNA - 11/13/2022 10:01 AM CDT Anesthesia Evaluation Procedure Information Date/Time: 11/13/22 1240 Procedure: CATARACT EXTRACTION WITH INTRAOCULAR LENS PLACEMENT, LEFT EYE (Left) Location: [facility] OR 11 / [facility] Surgeons: Neftali Malagon MD Patient summary reviewed and Nursing notes reviewed No history of anesthetic complications No family history of anesthesia reaction Allergies: No Known Allergies Patient allergies reviewed. Medications:No current facility-administered medications for this encounter. Medications Prior to Admission: ALPRAZolam (XANAX) 0.25 [...] medications reviewed. Airway Mallampati: II TM distance: >3 FB Neck ROM: full Dental - normal exam Pulmonary - negative ROS and normal exam Cardiovascular - normal exam (+) hypertension, Neuro/Psych - negative ROS GI/Hepatic/Renal - negative ROS Endo/Other - negative ROS Risks, benefits, alternatives discussed with:patient. Anesthesia Plan ASA 2 MAC Additional Plan: general intravenous induction Anesthetic plan and risks discussed with Patient. Plan discussed with TEACHER OF THE DEAF/HARD OF HEARING. documented in this encounter Plan of Treatment Not on file documented as of this encounter Visit Diagnoses Not on filedocumented in this encounter Administered Medications Inactive Administered Medications - up to 3 most recent administrations Medication Order MAR Action Action Date Dose Rate Site ketamine (KETALAR) injection Intravenous, ONCE (in OR), Starting on Sun11/13/22 at 1054, Until Sun11/13/22 at 1102 Given 11/13/2022 10:54 AM CDT 5 mg midazolam (VERSED) injection Intravenous, ONCE (in OR), Starting on Sun11/13/22 at 1054, Until Sun11/13/22 at 1102 Given 11/13/2022 10:54 AM CDT 2 mg documented in this encounter Care Teams Take Away Worker Relationship Specialty Start Date End Date Davin Estrada MD [address] [address] PCP - General Family Medicine 11/13/22 documented as of this encounter
--- OUTSIDE RECORDS SUMMARY | 2024-04-27 15:50 | XMS_ITS | Encounter Summary ---
Author Organization [email or web address] Care Team Providers Care Criminalist Technician Name Role Phone Unavailable Primary Care Provider Unavailabl e Encounter Details Date Type Department Care Team (Latest Contact Info) Description 11/08/2022 Travel Social History Tobacco Use Types Packs/Day [...]
--- OUTSIDE RECORDS SUMMARY | 2024-04-27 15:50 | XMS_ITS | Encounter Summary ---
Author Organization [facility] Address [address] [place] [address] Care Team Providers Care Stockbroker Name Role Phone Davin Estrada MD Primary Care Provider [phone] Reason for Referral * Diagnostic Imaging (Routine) - Closed Specialty Diagnoses / Procedures Referred By Contac t Referred To Contact Diagnoses Screening mammogram, encounter for Procedures Screening Mammogram Bilateral [place] Screening Mammogram, [address] [address] Referral ID Status Reason Start Date Expiration Date Visits Re quested Visits Authorized [id number] Closed 08/29/2023 09/27/2024 1 1 * Diagnostic Imaging (Routine) - Closed Specialty Diagnoses / Procedures Referred By Contac t Referred To Contact Diagnoses Screening mammogram, encounter for Procedures Screening Mammogram Bilateral [place] Screening Mammogram, [address] [address] Referral ID Status Reason Start Date Expiration Date Visits Re quested Visits Authorized [id number] Closed 08/29/2023 09/27/2024 1 1 Reason for Visit * Diagnostic Imaging (Routine) - Closed Specialty Diagnoses / Procedures Referred By Contac t Referred To Contact Diagnoses Screening mammogram, encounter for Procedures Screening Mammogram Bilateral [place] Screening Mammogram, [address] [address] Referral ID Status Reason Start Date Expiration Date Visits Re quested Visits Authorized [id number] Closed 08/29/2023 09/27/2024 1 1 Encounter Details Date Type Department Care Team (Latest Contact Info) Description 10/17/2023 1:43 PM CDT - 10/17/2023 11:59 PM CDT Hospital Encounter [facility] [address] [place] [address] Screening mammogram, encounter for Discharge Disposition: Discharge [...] on file Legal Sex Female 1:32 PM [employer]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 Gender Identity Not on file Sexual Orientation Not on file documented as of this encounter Last Filed Vital Signs Vital Sign Reading Time Taken Comments Blood Pressure - - Pulse - - Temperature - - Respiratory Rate - - Oxygen Saturation - - Inhaled Oxygen Concentration - - Weight - - Height 160 cm (5' 3 ) 10/17/2023 2:03 PM CDT Body Mass Index - - documented in this encounter Discharge Disposition Disposition Code Departure Means Destination Discharge to home or self care documented in this encounter Plan of Treatment Not on file documented as of this encounter Procedures Procedure Name Priority Date/Time Associated Diagnosis Comments SCREENING MAMMOGRAM BILATERAL [facility] [place] Schedule Routine, Read Routine (OP Routine) 10/17/2023 2:13 PM CDT Screening mammogram, encounter for documented in [...] mammogram, encounter for documented in this encounter Care Teams Stockbroker Relationship Specialty Start Date End Date Davin Estrada MD [address] [address] PCP - General Family Medicine 02/27/23 documented as of this encounter
--- OUTSIDE RECORDS SUMMARY | 2024-04-27 15:50 | XMS_ITS | Encounter Summary ---
Author Organization [facility] Address [address] [place] [address] Phone Care Team Providers Care Machine Inker Name Role Phone Davin Estrada MD Primary Care Provider [phone] Reason for Visit * Auth/Cert (Routine) Specialty Diagnoses / Procedures Referred By Eron bullock Referred To Contact Diagnoses VISUALLY SIGNIFICANT CATARACT RIGHT EYE Procedures CATARACT EXTRACTION WITH IOL IMPLANT Neftali Malagon MD [address] [place] [address] Phone: tel: fax: Referral ID Status Reason Start Date Expiration Date Visits Re quested Visits Authorized [id number] 1 1 Encounter Details Date Type Department Care Team (Late st Contact Info) Description 12/18/2022 11:00 AM CDT - 12/18/2022 11:20 AM CDT [facility] [address] [place] [address] Neftali Malagon MD [address] [place] [address] CATARACT EXTRACTION WITH INTRAOCULAR LENS PLACEMENT, RIGHT EYE Surgery Details Date/Time Status Location OR Service Patient Class Case Class Case Type Trauma Case? 12/18/2022 11:00 AM Posted [facility] Elective /Schedul ed Panel 1 Procedure LRB Anes Op Region Wound Class Comments CATARACT EXTRACTION WITH INTRAOCULAR LENS PLACEMENT, RIGHT EYE Right Monitored Anesthesia Care Eye Clean Surgeon Surgeon Role Service Panel Neftali Malagon MD Primary Ophthalmology 1 Special Needs 5'2 130# HTN, LEFT eye done October documented in this encounter Social History Tobacco [...] 10:29 AM CDT Patient: Cele Salcido 1945 [id number] Preoperative Diagnosis: Visually significant cataract Postoperative Diagnosis: Visually significant cataract Procedure: Cataract extraction with Intraocular Lens Placement LEFT eye Surgeon: Neftali Malagon MD Dip Tanker: None Anesthesia: Monitored Anesthesia Care Implant: Implant Name Type Inv. Item Serial No. Ship Mate Lot No. LRB No. Used Action TECHNIS 1-PIECE IOL WITH SIMPLICITY DELIVERY SYSTEM [id number] Right 1 Implanted Specimen: None Estimated Blood [...] * Interdisciplinary - Cara Reese RN - 12/06/2022 11:12 AM CDT [facility] ADULT TEACHING Patient Name: Cele Salcido : 1945 CSN#: [id number] Person Educated Patient Ready to Learn Yes [...] be allowed to accompany you to the [facility]. No children under theage of 16 will be allowed in the [facility] unless they are the patient. If the [...] Patient Response: Verbalizes Understanding Patient assessed for research phlebotomist during the preop interview and appropriate interventions taken if applicable. documented in this encounter Plan of Treatment Not on file documented as of this encounter Procedures Procedure Name Priority Date/Time Associated Diagnosis Comments CATARACT EXTRACTION WITH IOL IMPLANT 12/18/2022 10:15 AM CDT VISUALLY SIGNIFICANT CATARACT RIGHT EYE Special Needs 5'2 130# HTN, LEFT eye done October documented in this encounter Visit Diagnoses Not on filedocumented in this encounter Administered Medications Inactive Administered Medications - up to 3 most recent administrations Medication Order MAR Action Action Date Dose Rate Site balanced salts (BSS) solution SOLN ONCE (in OR), Starting on Sun12/18/22 at 1028, Until Sun12/18/22 at 1028 Given 12/18/2022 10:28 AM CDT 240 mL lidocaine-EPINEPHrine 2 %-1:580674 injection ONCE (in OR), Starting on Sun12/18/22 at 1023, Until Sun12/18/22 at 1028, INTRA-OP Given 12/18/2022 10:23 AM CDT 0.25 mL moxifloxacin (VIGAMOX) 0.5 % solution 1 Drop [...] Provid er: Neftali Malagon MD) lidocaine-EPINEPHrine 2 %-1:723279 injection (CANCELED) ONCE (in OR), Starting on Sun12/18/22 at 1023, Until Sun12/18/22 at 1028, INTRA-OP 1023 (Given - Provid er: Neftali Malagon MD) ondansetron (ZOFRAN) injection 4 mg 4 mg, Intravenous, ONCE PRN, 1 dose, Starting on Sun12/18/22 at 1023, Until Sun12/18/22 at 1236, Nausea - 1st line, First Line Antiemetic, PACU (I & II) documented in this encounter Care Teams Machine Inker Relationship Specialty Start Date End Date Davin Estrada MD [address] [address] PCP - General Family Medicine 11/13/22 documented as of this encounter
--- OUTSIDE RECORDS SUMMARY | 2024-04-27 15:50 | XMS_ITS | Encounter Summary ---
Author Organization [facility] Healthcare Address [address] [place] [address] Care Team Providers Care Associate Professor Of Education Name Role Phone Unavailable Primary Care Provider Unavailabl e Reason for Referral * Diagnostic Imaging (Routine) - Closed Specialty Diagnoses / Procedures Referred By Contac t Referred To Contact Diagnoses Asymptomatic menopausal state Procedures Dexa Axial Skeleton Bone Density 1 or 2 Site Dexa Axial and Forearm Bone Density Scan Tyshawn Baltazar MD [address] [address] Phone: tel: fax: [address] [phone] Referral ID Status Reason Start Date Expiration Date Visits Re quested Visits Authorized [id number] Closed 05/18/2020 06/17/2021 1 1 ABSTRACTOR Reason for Visit * Diagnostic Imaging (Routine) - Closed Specialty Diagnoses / Procedures Referred By Contac t Referred To Contact Diagnoses Asymptomatic menopausal state Procedures Dexa Axial Skeleton Bone Density 1 or 2 Site Dexa Axial and Forearm Bone Density Scan Tyshawn Baltazar MD [address] [address] Phone: tel: fax: [address] [phone] Referral ID Status Reason Start Date Expiration Date Visits Re quested Visits Authorized [id number] Closed 05/18/2020 06/17/2021 1 1 Encounter Details Date Type Department Care Team (Latest Contact Info) Description 05/19/2020 7:19 AM DATA ABSTRACTOR - 05/19/2020 11:59 PM DATA ABSTRACTOR Hospital Encounter [facility] 1 [place] [address] Tyshawn Baltazar MD [address] [place] [address] [address] [place] [address] Asymptomatic menopausal state Discharge Disposition: Discharge to home or self care Social History Tobacco Use Types Packs/Day Years Used Date Smoking Tobacco: Never Assessed Comments No Sex and Gender Information Value Date Recorded Sex Assigned at Not on file Legal Sex Female 1:32 PM DATA ABSTRACTOR Gender Identity Not on file Sexual Orientation [...] SITES Schedule Routine, Read Routine (OP Routine) 05/19/2020 7:51 AM DATA ABSTRACTOR Asymptomatic menopausal state documented in this encounter Results * Dexa Axial Skeleton Bone Density 1 or 2 Site (05/19/2020 7:51 AM DATA ABSTRACTOR) Anatomical Region Laterality Modality Body N/A Other 05/19/2020 7:52 AM DATA ABSTRACTOR Impressions 05/19/2020 7:52 AM DATA ABSTRACTOR According to the World Health Organization criteria, based upon the left femoral neck bone mineral density (T score value of -1.2), the patient has low bone mass (osteopenia). General Recommendations: ?? 1. Consider an evaluation for secondary causes of osteoporosis in patients with low bone density. ?? 2. All patients should be counseled on adequate intake of calcium (1200 mg/day), vitamin D (600-800 IU daily) and exercise. ?? 3. The National Osteoporosis Foundation (NOF) guidelines recommend initiating pharmacological therapy, in addition to calcium, vitamin D and exercise, to reduce fracture risk when: ?? a. T-score less than or equal to -2.5 after secondary causes excluded. ?? b. T-score between -1.0 and -2.5 with secondary causes associated with high risk of fracture. ?? c. 10-year probability of hip fracture more than or equal to 3% (based on FRAX score). ?? d. 10-year probability of major osteoporosis related fracture more than or equal to 20% (based on FRAX score). ?? Followup: ?? People with diagnosed cases of osteoporosis or at high risk for fracture should have regular bone mineral density tests. ??For patients eligible for Medicare, routine testing is allowed once every 2 years. The testing frequency can be increased to one year for patients who have rapidly progressive disease or those who are receiving long-term steroid therapy. ?? Electronically signed by: Ramya Jones D.O. Narrative 05/19/2020 7:52 AM DATA ABSTRACTOR COMPLETION DATE: 05/19/2020 8:00 AM ORDERING HEALTHCARE PROVIDER: TYSHAWN BALTAZAR STUDY DESCRIPTION: DEXA AXIAL SKELETON BONE DENSITY 1 OR MORE SITES CLINICAL INDICATIONS: POST MENOPAUSAL. COMPARISON: None TECHNIQUE: Dual x-ray absorptiometry (DEXA) was performed using EvalYou system. GENERAL GUIDELINES: According to WHO guidelines, a T score of -1.0 or greater is normal, between -1.0 to -2.4 is osteopenia, and -2.5 or less is osteoporosis. Z score (instead of T score) is preferred for pediatric, young adults, premenopausal women and men under age of 50 years. ??In these patients, a Z score greater than or equal to -2.0 is considered to be in the expected range. FINDINGS: LEFT FEMORAL NECK: T-score -1.2 LEFT TOTAL HIP: T-score -0.1 LUMBAR SPINE: T-score -0.9 In this patient with low bone mass not currently on biphosphonate therapy, the 10 year probability for major osteoporotic fracture is 9.7% and for hip fracture is 1.6%. According to the World Health Organization, biphosphonate therapy is indicated if 10 year risk for a major osteoporotic fracture is greater than or equal to 20% or the 10 year risk for hip fracture is greater than or equal to 3%. Procedure Note Ramya Jones DO - 05/19/2020 COMPLETION DATE: 05/19/2020 8:00 AM ORDERING HEALTHCARE PROVIDER: TYSHAWN BALTAZAR STUDY DESCRIPTION: DEXA AXIAL SKELETON BONE DENSITY 1 OR MORE SITES CLINICAL INDICATIONS: POST MENOPAUSAL. COMPARISON: None TECHNIQUE: Dual x-ray absorptiometry (DEXA) was performed using [employer]ure [employer] system. GENERAL GUIDELINES: According to WHO guidelines, a T score of -1.0 or greater is normal, between -1.0 to -2.4 is osteopenia, and -2.5 or less is osteoporosis. Z score (instead of T score) is preferred for pediatric, young adults, premenopausal women and men under age of 50 years. In these patients, a Z score greater than or equal to -2.0 is considered to be in the expected range. FINDINGS: LEFT FEMORAL NECK: T-score -1.2 LEFT TOTAL HIP: T-score -0.1 LUMBAR SPINE: T-score -0.9 In this patient with low bone mass not currently on biphosphonate therapy, the 10 year probability for major osteoporotic fracture is 9.7% and for hip fracture is 1.6%. According to the World Health Organization, biphosphonate therapy is indicated if 10 year risk for a major osteoporotic fracture is greater than or equal to 20% or the 10 year risk for hip fracture is greater than or equal to 3%. IMPRESSION: According to the World Health Organization criteria, based upon the left femoral neck bone mineral density (T score value of -1.2), the patient has low bone mass (osteopenia). General Recommendations: 1. Consider an evaluation for secondary causes of osteoporosis in patients with low bone density. 2. All patients should be counseled on adequate intake of calcium (1200 mg/day), vitamin D (600-800 IU daily) and exercise. 3. The National Osteoporosis Foundation (NOF) guidelines recommend initiating pharmacological therapy, in addition to calcium, vitamin D and exercise, to reduce fracture risk when: a. T-score less than or equal to -2.5 after secondary causes excluded. b. T-score between -1.0 and -2.5 with secondary causes associated with high risk of fracture. c. 10-year probability of hip fracture more than or equal to 3% (based on FRAX score). d. 10-year probability of major osteoporosis related fracture more than or equal to 20% (based on FRAX score). Followup: People with diagnosed cases of osteoporosis or at high risk for fracture should have regular bone mineral density tests. For patients eligible for Medicare, routine testing is allowed once every 2 years. The testing frequency can be increased to one year for patients who have rapidly progressive disease or those who are receiving long-term steroid therapy. Electronically signed by: Ramya Jones D.O. us Tyshawn Baltazar MD IMG DXA PROCEDURES Final Res ult documented in this encounter Visit Diagnoses Diagnosis Asymptomatic menopausal state documented in this encounter
--- OUTSIDE RECORDS SUMMARY | 2024-04-27 15:50 | XMS_ITS | Encounter Summary ---
Author Organization [facility] Care Team Providers Care Talent Sourcer Name Role Phone Davin Estrada MD Primary Care Provider [phone] Encounter Details Date Type Department Care Team (Latest Contact Info) Description 12/18/2022 Travel Social History Tobacco Use Types Packs/Day [...] on filedocumented in this encounter Care Teams Talent Sourcer Relationship Specialty Start Date End Date Davin Estrada MD [address] [address] PCP - General Family Medicine 11/13/22 documented as of this encounter
--- OUTSIDE RECORDS SUMMARY | 2024-04-27 15:50 | XMS_ITS | Encounter Summary ---
Author Organization [facility] Address [address] [place] [place] [address] Phone Care Team Providers Care Icu Staff Nurse Name Role Phone Davin Estrada MD Primary Care Provider [phone] Reason for Visit * Auth/Cert (Routine) Specialty Diagnoses / Procedures Referred By Eron t Referred To Contact Diagnoses VISUALLY SIGNIFICANT CATARACT, LEFT EYE Procedures CATARACT EXTRACTION WITH IOL IMPLANT Neftali Malagon MD [address] [place] [address] Phone: tel: fax: Referral ID Status Reason Start Date Expiration Date Visits Re quested Visits Authorized [id number] 1 1 Encounter Details Date Type Department Care Team (Late st Contact Info) Description 11/13/2022 12:40 PM CDT - 11/13/2022 1:00 PM CDT [facility] 1 [place] [address] Neftali Malagon MD [address] [place] [address] CATARACT EXTRACTION WITH INTRAOCULAR LENS PLACEMENT, LEFT EYE Surgery Details Date/Time Status Location OR Service Patient Class Case Class Case Type Trauma Case? 11/13/2022 12:40 PM Posted [facility] MAIN OR [facility] Ambulatory Surgery Elective /Schedul ed Panel 1 Procedure LRB Anes Op Region Wound Class Comments CATARACT EXTRACTION WITH INTRAOCULAR LENS PLACEMENT, LEFT EYE Left Monitored Anesthesia Care Eye Clean Surgeon Surgeon Role Service Panel Neftali Malagon MD Primary Ophthalmology 1 Special Needs 5'3 130# HTN documented in this encounter Social History Tobacco [...] 11:03 AM CDT Patient: Cele Salcido 1945 [id number] Preoperative Diagnosis: Visually significant cataract Postoperative Diagnosis: Visually significant cataract Procedure: Cataract extraction with Intraocular Lens Placement LEFT eye Surgeon: Neftali Malagon MD Securities Dealer: None Anesthesia: Monitored Anesthesia Care Implant: * No implants in log * Specimen: None Estimated Blood Loss: None Procedure in Detail: Please see full operative note for details Disposition: Patient was taken to Recovery in stable condition Neftali Malagon MD 11/13/2022 11:03 AM CDT * OR Neftali Phillips MD - 11/13/2022 10:24 AM CDT Patient: Cele Salcido 1945 [id number] Preoperative Diagnosis: Visually significant cataract Postoperative Diagnosis: Visually significant cataract Procedure: Cataract extraction with Intraocular Lens Placement LEFT eye Surgeon: Neftali Malagon MD Securities Dealer: None Anesthesia: Monitored Anesthesia Care Implant: * [...] Reese RN - 11/08/2022 10:10 AM CDT [facility] ADULT TEACHING Patient Name: Cele Salcido : 1945 [facility]#: [id number] Person Educated Patient Ready to Learn Yes [...] be allowed to accompany you to the [facility]. No children under theage of 16 will be allowed in the [facility] unless they are the patient. If [...] Patient Response: Verbalizes Understanding Patient assessed for second language tutor during the preop interview and appropriate interventions taken if applicable. documented in this encounter Plan of Treatment Not on file documented as of this encounter Procedures Procedure Name Priority Date/Time Associated Diagnosis Comments CATARACT EXTRACTION WITH IOL IMPLANT 11/13/2022 10:46 AM CDT VISUALLY SIGNIFICANT CATARACT, LEFT EYE Special Needs 5'3 130# HTN documented in this encounter Visit Diagnoses Not on filedocumented in this encounter Administered Medications Inactive Administered Medications - up to 3 most recent administrations Medication Order MAR Action Action Date Dose Rate Site lidocaine-EPINEPHrine 2 %-1:428398 injection ONCE (in OR), Starting on Sun11/13/22 at 1106, Until Sun11/13/22 at 1107, INTRA-OP Given 11/13/2022 11:06 AM CDT 0.5 mL Operative Site moxifloxacin (VIGAMOX) 0.5 % solution 1 [...] Gay RN)1018 (Given - Provider: Kailee Gay RN)1047 (Given - Provider: Zully Ramírez RN)1051 (Given - Provider: Zully Ramírez RN) Tropicamide-Phenylephrine 1-2.5 % SOLN 1 Drop (COMPLETED) 1 Drop, Ophthalmic, ONCE, 1 dose, On Sun11/13/22 at 1030, Instill one drop in left eye every 5 mins times two, PRE-OP (SURGERY) 1015 (Given - Provid er: Kailee Gay RN)1018 (Given - Provider: Kailee Gay RN) PRN Medication Order 11/11/2022 11/12/2022 11/13/2022 lidocaine-EPINEPHrine 2 %-1:899176 injection (CANCELED) ONCE (in OR), Starting on Sun11/13/22 at 1106, Until Sun11/13/22 at 1107, INTRA-OP 1106 (Given - Provid er: Neftali Malagon MD) documented in this encounter Care Teams Icu Staff Nurse Relationship Specialty Start Date End Date Davin Estrada MD [address] [address] PCP - General Family Medicine 11/13/22 documented as of this encounter
--- OUTSIDE RECORDS SUMMARY | 2024-04-27 15:51 | XMS_ITS | Encounter Summary ---
Author Organization [facility] Healthcare Address [address] [place] [address] Care Team Providers Care Math And Sciences Department Chair Name Role Phone Unavailable Primary Care Provider Unavailabl e Encounter Details Date Type Department Care Team (Late st Contact Info) Description 12/30/2010 3:04 PM CDT - 12/30/2010 11:59 PM CDT Hospital Encounter [facility] Social History Tobacco Use Types Packs/Day Years Used Date Smoking Tobacco: Never Assessed Comments Unknown Sex and Gender Information Value Date Recorded Sex Assigned at Not on file Legal Sex Female 1:32 PM MEDICAL RECRUITER Gender Identity Not on file Sexual Orientation Not on file documented as of this encounter Plan of Treatment Not on file documented as of this encounter Visit Diagnoses Not on filedocumented in this encounter
--- OUTSIDE RECORDS SUMMARY | 2024-04-27 15:51 | XMS_ITS | Encounter Summary ---
Author Organization [facility] Healthcare Address [address] [place] [address] Care Team Providers Care Stock Shaper Name Role Phone Unavailable Primary Care Provider Unavailabl e Encounter Details Date Type Department Care Team (Late st Contact Info) Description 01/09/2008 12:01 AM CDT - 01/09/2008 11:59 PM CDT Hospital Encounter [facility] Tyshawn Tavarez MD [address] [facility] [address] [place] [address] Social History Tobacco Use Types Packs/Day Years Used Date Smoking Tobacco: Never Assessed Comments Unknown Sex and Gender Information Value Date Recorded Sex Assigned at Not on file Legal Sex Female 1:32 PM PROCESS SPECIALIST Gender Identity Not on file Sexual Orientation Not on file documented as of this encounter Plan of Treatment Not on file documented as of this encounter Visit Diagnoses Not on filedocumented in this encounter
--- OUTSIDE RECORDS SUMMARY | 2024-04-27 15:51 | XMS_ITS | Encounter Summary ---
Author Organization [facility] Healthcare Address [address] [place] [address] Care Team Providers Care Hypo Splasher Name Role Phone Unavailable Primary Care Provider Unavailabl e Encounter Details Date Type Department Care Team (Late st Contact Info) Description 02/17/2016 7:13 AM CDT - 02/17/2016 11:59 PM CDT Hospital Encounter [facility] Tyshawn Tavarez MD [address] [facility] [address] [place] [address] Encounter for screening mammogram for malignant neoplasm of breast Social History Tobacco Use Types Packs/Day Years Used Date Smoking Tobacco: Never Assessed Comments Unknown Sex and Gender Information Value Date Recorded Sex Assigned at Not on file Legal Sex Female 1:32 PM LINE COOK Gender Identity Not on file Sexual Orientation Not on file documented as of this encounter Plan of Treatment Not on file documented as of this encounter Procedures Procedure Name Priority Date/Time Associated Diagnosis Comments DIAGNOSTIC MAMMOGRAM BILATERAL W KALEB Routine 02/17/2016 7:56 AM CDT documented in this encounter Results * Diagnostic Mammogram Bilateral W Kaleb (02/17/2016 7:56 AM CDT) Anatomical Region Laterality Modality Breast Bilateral Mammography 02/17/2016 7:56 AM CDT Narrative 02/17/2016 10:30 PM CDT Mr SCREENING MAMM W KALEB BI ??Acc#: ??[id number] Screening Mamm Bi Acc#: [id number] DATE OF EXAM: ??Feb 17 2016 Performed by: CLINICAL HISTORY: Routine screening. RESULT: Two views of each breast obtained, as well as tomosynthesis images for both breasts, compared with 02/04/15 and 02/03/14. ??Asymmetric fibroglandular pattern is noted, with the right breast heterogeneously dense and the left breast composed of scattered fibroglandular densities. ??Asymmetric fibroglandular density in the right subareolar region which is unchanged. ??No dominant mass is demonstrated. ??No suspicious clusters of microcalcifications are evident. ??Similar appearance to the prior studies. Digital technology was employed plus computer-aided detection software (R2) was utilized in interpretation of these images. ??This facility utilizes a reminder system to notify patients of yearly mammograms. IMPRESSION: BENIGN FINDINGS. ??ANNUAL MAMMOGRAPHIC FOLLOW-UP RECOMMENDED. BI-RADS CATEGORY 2 - BENIGN Interpreting Physician: ??RIGO THOMAS M.D. ??Read on: ??Feb 17 2016 ??7:57A Transcribed by: ??mrr ??On: Feb 17 2016 11:07A Approved Electronically by: ??RIGO THOMAS M.D. ??on: ??Feb 17 2016 10:30P Attending: ??TYSHAWN LORENZ Requesting: ??TYSHAWN LORENZ Requesting Fax: ??-- Attending Fax: ??-- Attending ID: ??[id number] Requesting ID: ??[id number] Report To 1 ID: ??[id number] Report To 1 Name: ??TYSHAWN LORENZ Report To 1 FAX: ??-- NextGen Order #: Procedure Note Provider, MD Maia - 08/30/2016 Mr SCREENING MAMM W KALEB BI Acc#: [id number] Screening Mamm Bi Acc#: [id number] DATE OF EXAM: Feb 17 2016 Performed by: CLINICAL HISTORY: Routine screening. RESULT: Two views of each breast obtained, as well as tomosynthesis images forboth breasts, compared with 02/04/15 and 02/03/14. Asymmetricfibroglandular pattern is noted, with the right breast heterogeneouslydense and the left breast composed of scattered fibroglandular densities.Asymmetric fibroglandular density in the right subareolar region which isunchanged. No dominant mass is demonstrated. No suspicious clusters ofmicrocalcifications are evident. Similar appearance to the prior studies.Digital technology was employed plus computer-aided detection software(R2) was utilized in interpretation of these images. This facilityutilizes a reminder system to notify patients of yearly mammograms. IMPRESSION: BENIGN FINDINGS. ANNUAL MAMMOGRAPHIC FOLLOW-UP RECOMMENDED. BI-RADSCATEGORY 2 - BENIGN Interpreting Physician: RIGO THOMAS M.D. Read on: Feb 17 2016 7:57A Transcribed by: sigrid On: Feb 17 2016 11:07A Approved Electronically by: RIGO THOMAS M.D. on: Feb 17 2016 10:30P Attending: TYSHAWN LORENZ Requesting: TYSHAWN LORENZ Requesting Fax: -- Attending Fax: -- Attending ID: [id number] Requesting ID: [id number] Report To 1 ID: [id number] Report To 1 Name: TYSHAWN LORENZ Report To 1 FAX: -- NextGen Order #: Historical Provider MD BONILLA MAMMO PROCEDURES Samina l Result documented in this encounter Visit Diagnoses Diagnosis Encounter for screening mammogram for malignant neoplasm of breast documented in this encounter
--- OUTSIDE RECORDS SUMMARY | 2024-04-27 15:51 | XMS_ITS | Encounter Summary ---
Author Organization [facility] Healthcare Address [address] [place] [address] Care Team Providers Care Belt Turner Name Role Phone Unavailable Primary Care Provider Unavailabl e Encounter Details Date Type Department Care Team (Late st Contact Info) Description 01/25/2012 7:10 AM CDT - 01/25/2012 11:59 PM CDT Hospital Encounter [facility] Tyshanw Tavarez MD [address] [facility] [address] [place] [address] Other screening mammogram Social History Tobacco Use Types Packs/Day Years Used Date Smoking Tobacco: Never Assessed Comments Unknown Sex and Gender Information Value Date Recorded Sex Assigned at Not on file Legal Sex Female 1:32 PM COUNCIL MEMBER Gender Identity Not on file Sexual Orientation Not on file documented as of this encounter Plan of Treatment Not on file documented as of this encounter Visit Diagnoses Diagnosis Other screening mammogram documented in this encounter
--- OUTSIDE RECORDS SUMMARY | 2024-04-27 15:51 | XMS_ITS | Encounter Summary ---
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 - 03/05/2017 11:59 PM WINDOW SHADE RING COVERER Hospital Encounter [facility] OP INTERIM Tyshawn Baltazar MD [address] [facility] [address] [place] [address] Discharge Disposition: Discharge to home or self care Social History Tobacco Use Types Packs/Day Years Used Date Smoking Tobacco: Never Assessed Comments Unknown Sex and Gender Information Value Date Recorded Sex Assigned at Not on file Legal Sex Female 1:32 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 SHADE RING 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 Gender Identity Not on file Sexual Orientation Not on file documented as of this encounter Discharge Disposition Disposition Code Departure Means Destination Discharge to home or self care documented in this encounter Plan of Treatment Not on file documented as of this encounter Procedures Procedure Name Priority Date/Time Associated Diagnosis Comments MAMMOGRAPHY, TOMOGRAPHY, BILATERAL Routine 03/05/2017 2:00 PM WINDOW SHADE RING COVERER documented in this encounter Results * MAMMOGRAPHY, TOMOGRAPHY, BILATERAL (03/05/2017 2:00 PM WINDOW SHADE RING COVERER) Anatomical Region Laterality Modality Bilateral Mammography 03/05/2017 2:00 PM WINDOW SHADE RING COVERER Narrative 03/05/2017 2:00 PM WINDOW SHADE RING COVERER SCREENING MAMM W KALEB BI ??Acc#: ??[id number] DATE OF EXAM: ??Mar 05 2017 ?? SCREENING MAMM W KALEB BI HISTORY: ??routine screening. Routine screening, no current complaints. COMPARISON: ??02/10/1716, 02/04/2015 FINDINGS: ??Breast density: ??Scattered fibroglandular densities. There has been no significant interval change. There are no suspicious masses, microcalcifications, or architectural distortions. Tomographic images demonstrate no additional findings. Digital technology was employed plus computer aided detection software (R2) was utilized in interpretation of these images. ??This facility utilizes a reminder system to notify patient's of yearly mammograms. IMPRESSION: ?? BI-RADS CATEGORY I: NEGATIVE EXAM. ?? RECOMMEND ROUTINE FOLLOW-UP. Electronically signed by: Yanick Chow M.D. Interpreting Physician: ??DR GEORGE BRUNO M.D. ??Read on: ??Mar 05 2017 ?? 8:00A Transcribed by: ??PSC ??On: Mar 05 2017 ??7:58A Approved Electronically by: ??DAMION Wilder, DR VAZQUEZ ??on: ??Mar 05 2017 ?? 7:58A Ordering DR: REFERRAL SELF Attending DR: TYSHAWN BALTAZAR Attending: ??TYSHAWN BALTAZAR Requesting: ??SELF, REFERRAL Requesting Fax: ??-- Attending Fax: ??-- Attending ID: ??[id number] Requesting ID: ??[id number] Report To 1 ID: ??[id number] Report To 1 Name: ??TYSHAWN BALTAZAR Report To 1 FAX: ??-- NextGen Order #: ?? Procedure Note Miscellaneous, Not In File - 03/05/2017 SCREENING MAMM W KALEB BI Acc#: [id number] DATE OF EXAM: Mar 05 2017 SCREENING MAMM W KALEB BI HISTORY: routine screening. Routine screening, no current complaints. COMPARISON: 02/10/1716, 02/04/2015 FINDINGS: Breast density: Scattered fibroglandular densities. There has been no significant interval change. There are no suspicious masses, microcalcifications, or architectural distortions. Tomographic images demonstrate no additional findings. Digital technology was employed plus computer aided detection software (R2) was utilized in interpretation of these images. This facility utilizes a reminder system to notify patient's of yearly mammograms. IMPRESSION: BI-RADS CATEGORY I: NEGATIVE EXAM. RECOMMEND ROUTINE FOLLOW-UP. Electronically signed by: Yanick Chow M.D. Interpreting Physician: DR GEORGE BRUNO M.D. Read on: Mar 05 2017 8:00A Transcribed by: [facility] On: Mar 05 2017 7:58A Approved Electronically by: DAMION Wilder, DR VAZQUEZ on: Mar 05 2017 7:58A Ordering DR: TIM SELF Attending DR: TYSHAWN BALTAZAR Attending: TYSHAWN BALTAZAR Requesting: SELF, REFERRAL Requesting Fax: -- Attending Fax: -- Attending ID: [id number] Requesting ID: [id number] Report To 1 ID: [id number] Report To 1 Name: TYSHAWN BALTAZAR Report To 1 FAX: -- NextGen Order #: us Self Referral IMG MAMMO PROCEDURES Edited Resu lt - Final documented in this encounter Visit Diagnoses Not on filedocumented in this encounter
--- OUTSIDE RECORDS SUMMARY | 2024-04-27 15:51 | XMS_ITS | Encounter Summary ---
Author Organization [facility] Healthcare Address [address] [place] [address] Care Team Providers Care Acetylene Cutter Name Role Phone Unavailable Primary Care Provider Unavailabl e Encounter Details Date Type Department Care Team (Late st Contact Info) Description 02/04/2015 8:02 AM CDT - 02/04/2015 11:59 PM CDT Hospital Encounter [facility] Tyshawn Tavarez MD [address] [facility] [address] [place] [address] Encounter for screening mammogram for malignant neoplasm of breast Social History Tobacco Use Types Packs/Day Years Used Date Smoking Tobacco: Never Assessed Comments Unknown Sex and Gender Information Value Date Recorded Sex Assigned at Not on file 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[id number] DATE OF EXAM: ??Feb 04 2015 Performed by: CLINICAL HISTORY: Routine screening. ??No current complaints. RESULT: Four view screening mammogram is compared to a prior exam dated 02/03/14. ??There has been no interval change. ??Asymmetric breast density is present with the right breast heterogeneously dense and the left breast composed of scattered fibroglandular densities. ??Asymmetric fibroglandular density is seen in the right subareolar region which are unchanged. ??There are no new masses or suspicious microcalcifications. ??Tomographic images demonstrate no additional findings. Digital technology was employed plus computer-aided detection software (R2) was utilized in interpretation of these images. ??This facility utilizes a reminder system to notify patients of yearly mammograms. IMPRESSION: BI-RADS CATEGORY 2 - BENIGN FINDINGS. ??RECOMMEND ROUTINE FOLLOW-UP. Interpreting Physician: ??DR GEORGE BRUNO M.D. ??Read on: ??Feb 04 2015 9:01A Transcribed by: ??mrr ??On: Feb 04 2015 11:54A Approved Electronically by: ??DAMION Wilder, DR VAZQUEZ ??on: ??Feb 04 2015 3:14P Attending: ??TYSHAWN LORENZ Requesting: ??TYSHAWN LORENZ Requesting Fax: ??-- Attending Fax: ??-- Attending ID: ??[id number] Requesting ID: ??[id number] Report To 1 ID: ??[id number] Report To 1 Name: ??TYSHAWN LORENZ Report To 1 FAX: ??-- NextGen Order #: Procedure Note Provider, MD Maia - 08/17/2016 Mr SCREENING MAMM W KALEB BI Acc#: [id number] Screening Mamm Bi Acc#: [id number] DATE OF EXAM: Feb 04 2015 Performed by: CLINICAL HISTORY: Routine screening. No current complaints. RESULT: Four view screening mammogram is compared to a prior exam dated 02/03/14.There has been no interval change. Asymmetric breast density is presentwith the right breast heterogeneously dense and the left breast composedof scattered fibroglandular densities. Asymmetric fibroglandular densityis seen in the right subareolar region which are unchanged. There are nonew masses or suspicious microcalcifications. Tomographic imagesdemonstrate no additional findings. Digital technology was employed pluscomputer-aided detection software (R2) was utilized in interpretation ofthese images. This facility utilizes a reminder system to notify patientsof yearly mammograms. IMPRESSION: BI-RADS CATEGORY 2 - BENIGN FINDINGS. RECOMMEND ROUTINE FOLLOW-UP. Interpreting Physician: DR GEORGE BRUNO M.D. Read on: Feb 04 20159:01A Transcribed by: sigrid On: Feb 04 2015 11:54A Approved Electronically by: DAMION Wilder, DR VAZQUEZ on: Feb 04 20153:14P Attending: TYSHAWN LORENZ Requesting: TYSHAWN LORENZ Requesting Fax: -- Attending Fax: -- Attending ID: [id number] Requesting ID: [id number] Report To 1 ID: [id number] Report To 1 Name: TYSHAWN LORENZ Report To 1 FAX: -- NextGen Order #: Historical Provider MD [facility] MAMMO PROCEDURES Samina l Result documented in this encounter Visit Diagnoses Diagnosis Encounter for screening mammogram for malignant neoplasm of breast documented in this encounter
--- OUTSIDE RECORDS SUMMARY | 2024-04-27 15:51 | XMS_ITS | Encounter Summary ---
Author Organization [facility] Healthcare Address [address] [place] [address] Care Team Providers Care Field Human Resources Manager Name Role Phone Unavailable Primary Care Provider Unavailabl e Encounter Details Date Type Department Care Team (Late st Contact Info) Description 01/20/2010 12:01 AM CDT - 01/20/2010 11:59 PM CDT Hospital Encounter [facility] Tyshawn Tavarez MD [address] [facility] [address] [place] [address] Other screening mammogram Social History Tobacco Use Types Packs/Day Years Used Date Smoking Tobacco: Never Assessed Comments Unknown Sex and Gender Information Value Date Recorded Sex Assigned at Not on file 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
--- OUTSIDE RECORDS SUMMARY | 2024-04-27 15:51 | XMS_ITS | Encounter Summary ---
Author Organization [facility] Healthcare Address [address] [place] [address] Care Team Providers Care Conference Services Coordinator Name Role Phone Unavailable Primary Care Provider Unavailabl e Reason for Visit * Reason Comments Neck Mass Encounter Details Date Type Department Care Team (Late st Contact Info) Description 07/23/2018 4:02 PM CDT - 07/23/2018 6:44 PM CDT Emergency [facility] Emergency Department [address] [place] [address] Roe Mathis MD PhD [address] [place], [place] [id number] Enlarged lymph node (Primary Dx) Discharge Disposition: Discharge to home or self care Social History Tobacco Use Types Packs/Day Years Used Date Smoking Tobacco: Never Assessed Comments No Sex and Gender Information Value Date Recorded Sex Assigned at Not on file Legal Sex Female 1:32 PM [employer] Gender Identity Not on file Sexual Orientation Not on file documented as of this encounter Last Filed Vital Signs Vital Sign Reading Time Taken Comments Blood Pressure 159/87 07/23/2018 6:30 PM CDT Pulse 70 07/23/2018 6:30 PM CDT Temperature 36.8 ??C (98.2 ??F) 07/23/2018 3:54 PM CD T Respiratory Rate 17 07/23/2018 6:30 PM CDT Oxygen Saturation 98% 07/23/2018 6:30 PM CDT Inhaled Oxygen Concentration - - Weight 60.3 kg (133 lb) 07/23/2018 3:54 PM CDT Height 157.5 cm (5' 2 ) 07/23/2018 3:54 PM CDT Body Mass Index 24.33 07/23/2018 3:54 PM CDT documented in this encounter Discharge Instructions * Discharge Instructions* Lilo Cunningham MD - 07/23/2018 6:31 PM CDT You were seen today for pulsating neck mass. No dangerous causes were seen on imaging. There is an enlarged lymph node near your carotid artery that is probably causing the artery to come closer to the skin. You should follow up with your primary care doctor in about a week if the swelling doesn't go down. Return for any new symptoms which concern you. documented in this encounter Discharge Disposition Disposition Code Departure Means Destination Discharge to home or self care documented in this encounter ED Notes * Roe Mathis MD PhD - 07/23/2018 4:24 PM CDT HPI Chief Complaint Patient presents with ??? Neck Mass 72-year-old female, prior history of ovarian cancer status post hysterectomy several years ago, presents today from PMD office for pulsating left neck mass. Patient states she noted a knot on the left side of her neck approximately 4-6 weeks ago, attributed that to developing URI. Today, realized it was pulsating while at the PMD's office and was immediately sent here. The patient denies any headache, vision changes, trauma to the neck, dizziness or lightheadedness, chest pain, shortness of breath, nausea, vomiting, diarrhea, dysuria, hematuria, hematochezia, lower extremity edema. She is noton any blood thinners Patient History There are no active problems to display for this patient. Past Medical History: Diagnosis Date ??? History of chemotherapy ??? Ovarian cancer (CMS/HCC) Past Surgical History: Procedure Laterality Date ??? HYSTERECTOMY Family History Problem Relation Age of Onset ??? Breast cancer Paternal Grandmother Social History Tobacco Use ??? Smoking status: Not on file Substance Use Topics ??? Alcohol use: Not on file ??? Drug use: Not on file Social History Social History Narrative ??? Not on file Review of Systems Review of Systems Constitutional: Negative for chills and fever. HENT: Negative for ear pain, sore throat, trouble swallowing and voice change. Eyes: Negative for pain and visual disturbance. Respiratory: Negative for cough and shortness of breath. Cardiovascular: Negative for chest pain and palpitations. Gastrointestinal: Negative for abdominal pain and vomiting. Genitourinary: Negative for dysuria and hematuria. Musculoskeletal: Negative for arthralgias and back pain. Skin: Negative for color change and rash. Neurological: Negative for seizures and syncope. All other systems reviewed and are negative. Physical Exam ED Triage Vitals [07/23/18 1554] Temp Pulse Resp BP SpO2 36.8 ??C (98.2 ??F) 90 18 159/97 99 % Temp src Heart Rate Source Patient Position BP Location FiO2 (%) Oral -- -- -- -- Physical Exam Constitutional: She is oriented to person, place, and time. She appears well- developed and well-nourished. No distress. HENT: Head: Normocephalic and atraumatic. Eyes: Conjunctivae are normal. Neck: Neck supple. No thyromegaly present. 2 x 3 cm pulsating area noted on the left side of patient's neck just posterior to SCM. Not tender to palpation. Cardiovascular: Normal rate, regular rhythm and normal heart sounds. No murmur heard. Pulmonary/Chest: Effort normal and breath sounds normal. No respiratory distress. Abdominal: Soft. She exhibits no distension. There is no tenderness. There is no guarding. Musculoskeletal: She exhibits no edema. Neurological: She is alert and oriented to person, place, and time. Skin: Skin is warm and dry. Psychiatric: She has a normal mood and affect. Nursing note and vitals reviewed. MDM MDM Number of Diagnoses or Management Options Diagnosis management comments: 72-year-old female here with pulsating left-sided neck mass. On exam, the patient is afebrile, vital signs stable, CTAB, RRR, benign abdominal exam. There is a area of pulsation on the left lateral neck. The patient has full range of motion of her neck. Bedside ultrasound reveals possibly dilated carotid artery, however no obvious dissection flap noted. Plan at thistime is for labs, point of care creatinine, CTA of the head and neck. Differential includes aneurysm, dissection, structural anomaly. Dispo per ED course. Attending Summary of Care 72-year-old female history of hyperthyroidism in her youth which is resolved, ovarian cancer statuspost hysterectomy in the remote past which is in complete remission, who now sent in by her PMD fora pulsatile new neck mass. Patient states the last 4-6 weeks she has had some swelling on the left side of her anterior neck. She presented to an urgent care recently who told her to follow up with her primary care doctor. She also went to a dentist today because she thought that it might be related to her teeth. The dentist advised that she go to her primary care doctor today. Patient was seen by her PMD today who told her to go to the ED because she had a pulsatile mass. Patient denies any recent fever, chills, chest pain, shortness of breath, abdominal pain, nausea, vomiting, weakness, numbness, neck pain, trauma. Exam-regular rate and rhythm, clear to auscultation bilaterally, abdomen soft nontender nondistended, neurologically intact, left neck with approximately 2 cm area of swelling which is pulsatile, no bleeding, no erythema, nontender. Differential diagnosis includes carotid artery aneurysm, lower suspicion carotid aneurysm. Plan for bedside ultrasound as well as CTA, dispo pending results. I have seen and examined the patient on 07/23/2018 . I agree with the findings and plan of care as documented in the resident's note. ED Course as of Jul 23 1952 Time: 07/23 162 Value: XR Chest 1 Vw Portable Comment: No acute abnormality noted on wet read By: Lilo Cunningham MD Time: 07/23 182 Value: CTA Head Neck W WO Contrast Comment: (Reviewed) By: Lilo Cunningham MD Enlarged lymph node Roe Mathis MD PhD 07/23/181952 * Daina Velazquez, RN - 07/23/2018 3:51 PM CDT Pt was at PMD and told to come to ED for pulsating aneurysm on left side of neck; pt states she noticed the lump approx 2 weeks ago and went to dentist and then to PMD today. Denies feeling ill. Pt is not anticoagulated at this time. Obvious pulsating on left side of nec. PMH of ovarian cancer. Is not on any medications daily. documented in this encounter Miscellaneous Notes * ED Procedure Note - Roe Mathis MD PhD - 07/23/2018 4:30 PM CDT Associated Order(s): US Other Procedure US Other Date/Time: 07/23/2018 4:30 PM Performed by: Lilo Cunningham MD Authorized by: Roe Mathis MD PhD A focused ultrasound was performed for clinical purposes to evaluate for pulsatile neck mass. This was an initial exam. Additional person(s) obtaining/interpreting images (if applicable): roe Mathis Indications for obtaining exam: Pulsatile neck mass Views obtained Transverse and longitudinal Findings Slightly enlarged carotid artery without obvious dissection flap Interpretation Patent carotid artery. Will follow up with CT angiogram of head and neck I have personally reviewed the image and the resident's interpretation. I agree with the findings. Roe Mathis MD PhD 07/23/18 3632 documented in this encounter Plan of Treatment Not on file documented as of this encounter Procedures Procedure Name Priority Date/Time Associated Diagnosis Comments B CHECK SAMPLE STAT 07/23/2018 5:49 PM CDT CTA HEAD NECK W WO CONTRAST ED Urgent/IP Urgent 07/23/2018 5:13 PM CDT XR CHEST 1 VIEW ED Urgent/IP Urgent 07/23/2018 4:43 PM CDT ED GENERAL Routine 07/23/2018 4:30 PM CDT POCT CREATININE FOR CONTRAST EVALUATION Routine Gen Lab 07/23/2018 4:28 PM CDT URINALYSIS AND REFLEX TO MICROSCOPIC AND CULTURE STAT 07/23/2018 4:23 PM CDT URINALYSIS, MICROSCOPIC ONLY STAT 07/23/2018 4:23 PM CDT DIFFERENTIAL AUTO STAT 07/23/2018 4:2 0 PM CDT CBC WITH AUTO DIFFERENTIAL STAT 07/23/2018 4:20 PM CDT TROPONIN I STAT 07/23/2018 4:20 PM CDT APTT STAT 07/23/2018 4:20 PM CDT PROTIME-INR STAT 07/23/2018 4:20 PM CDT TYPE AND SCREEN STAT 07/23/2018 4:20 PM CDT COMPREHENSIVE METABOLIC PANEL STAT 07/23/2018 4:20 PM CDT documented in this encounter Results * Check Sample (07/23/2018 5:49 PM CDT) ABO Rh A Negative [facility] HCLL OTHER 07/23/2018 5:49 PM CDT 07/23/2018 6:26 PM CDT Narrative [facility] - 07/23/2018 7:13 PM CDT us Notinfile Unknown LAB BLOOD ORDERABLES Final Res ult [facility] Department [place] [address] * CTA Head Neck W WO Contrast (07/23/2018 5:13 PM CDT) Anatomical Region Laterality Modality Head and Neck N/A Computed Tomogra phy 07/23/2018 5:49 PM CDT Impressions 07/24/2018 9:43 AM CDT No acute intracranial abnormality. Normal CT angiogram of the head and neck. ??Specifically, there is no mass in the left side of the neck. ??There are vascular loops of the carotid arteries bilaterally that could correspond to the palpable area of concern. Dictated by: Leo Enamorado M.D. The radiology attending physician has personally reviewed this study, and had reviewed and/or edited this written report and agrees with it. Electronically signed by: Jocelyn Sellers M.D. Narrative 07/24/2018 9:43 AM CDT EXAMINATION: Computed tomography angiography (CTA) of the head without and with contrast Computed tomography angiography (CTA) of the neck with contrast HISTORY: Pulsatile left neck mass. TECHNIQUE: Computed tomography of the head was performed without contrast according to standard protocol. Computed tomographic angiography was then obtained from the aortic arch to the vertex following the uneventful administration of intravenous contrast. 3D images were generated on a dedicated workstation. Contrast information: 100 mL Optiray-350 COMPARISON: None available. FINDINGS: Topogram demonstrates no lytic lesions or fractures. 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 ??There is no acute intracranial hemorrhage . Ventricles are of normal size and morphology. No mass effect or midline shift is present. The cyr-white matter differentiation is normal. The visualized portions of the orbits are normal. The visualized portions of the mastoids are normal. The visualized portions of the paranasal sinuses are normal. No fractures are identified. Scattered subcentimeter lymph nodes are seen in the neck. None are pathologically enlarged or abnormally enhancing. The muscles of the neck are normal. Fascial planes are preserved and the deep spaces of the neck are normal. The visualized airway is widely patent. The spinal canal is normal in caliber. Intervertebral disk heights are normal. Neural foramina are normal. There are vascular loops of the carotid arteries bilaterally. Angiographic findings: The visualized aortic arch appears normal with normal configuration of the great vessels. The innominate artery and both subclavian arteries are normal in course and caliber. The common carotid arteries are normal in course and caliber with normal carotid bifurcations bilaterally. The course and caliber of the internal carotid arteries are normal. No areas of atherosclerotic narrowing or filling defects are identified. The [id number] is complete. The anterior and middle cerebral arteries are normal. The vertebral arteries are codominant. The basilar artery is normal. The posterior cerebral arteries are normal. There is no aneurysm or vascular malformation identified. Procedure Note Jocelyn Sellers MD - 07/24/2018 EXAMINATION: Computed tomography angiography (CTA) of the head without and with contrast Computed tomography angiography (CTA) of the neck with contrast HISTORY: Pulsatile left neck mass. TECHNIQUE: Computed tomography of the head was performed without contrast according to standard protocol. Computed tomographic angiography was then obtained from the aortic arch to the vertex following the uneventful administration of intravenous contrast. 3D images were generated on a dedicated workstation. Contrast information: 100 mL Optiray-350 COMPARISON: None available. FINDINGS: Topogram demonstrates no lytic lesions or fractures. 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 There is no acute intracranial hemorrhage . Ventricles are of normal size and morphology. No mass effect or midline shift is present. The cyr-white matter differentiation is normal. The visualized portions of the orbits are normal. The visualized portions of the mastoids are normal. The visualized portions of the paranasal sinuses are normal. No fractures are identified. Scattered subcentimeter lymph nodes are seen in the neck. None are pathologically enlarged or abnormally enhancing. The muscles of the neck are normal. Fascial planes are preserved and the deep spaces of the neck are normal. The visualized airway is widely patent. The spinal canal is normal in caliber. Intervertebral disk heights are normal. Neural foramina are normal. There are vascular loops of the carotid arteries bilaterally. Angiographic findings: The visualized aortic arch appears normal with normal configuration of the great vessels. The innominate artery and both subclavian arteries are normal in course and caliber. The common carotid arteries are normal in course and caliber with normal carotid bifurcations bilaterally. The course and caliber of the internal carotid arteries are normal. No areas of atherosclerotic narrowing or filling defects are identified. The kofyrs-ft-[id number] is complete. The anterior and middle cerebral arteries are normal. The vertebral arteries are codominant. The basilar artery is normal. The posterior cerebral arteries are normal. There is no aneurysm or vascular malformation identified. IMPRESSION: No acute intracranial abnormality. Normal CT angiogram of the head and neck. Specifically, there is no mass in the left side of the neck. There are vascular loops of the carotid arteries bilaterally that could correspond to the palpable area of concern. Dictated by: Leo Enamorado M.D. The radiology attending physician has personally reviewed this study, and had reviewed and/or edited this written report and agrees with it. Electronically signed by: Jocelyn Sellers M.D. us Lilo Cunningham MD IMG CT PROCEDURES Final Resu lt * XR Chest 1 Vw Portable (07/23/2018 4:43 PM CDT) Anatomical Region Laterality Modality Body, Chest N/A Computed Radiogr aphy 07/23/2018 5:20 PM CDT Impressions 07/23/2018 5:31 PM CDT No prior studies available for comparison. ??There is old granulomatous disease. ??The lungs are clear without evidence of pneumonia, pulmonary edema, or pleural effusion. ??There is no pneumothorax. ??The cardiomediastinal silhouette is normal. Dictated by: João Parada M.D. The radiology attending physician has personally reviewed this study, and had reviewed and/or edited this written report and agrees with it. Electronically signed by: Valencia Carrera M.D. Narrative 07/23/2018 5:31 PM CDT EXAMINATION: 1 view chest radiograph HISTORY: Pulsating neck mass Procedure Note Valencia Carrera MD - 07/23/2018 EXAMINATION: 1 view chest radiograph HISTORY: Pulsating neck mass IMPRESSION: No prior studies available for comparison. There is old granulomatous disease. The lungs are clear without evidence of pneumonia, pulmonary edema, or pleural effusion. There is no pneumothorax. The cardiomediastinal silhouette is normal. Dictated by: João Parada M.D. The radiology attending physician has personally reviewed this study, and had reviewed and/or edited this written report and agrees with it. Electronically signed by: Valencia Carrera M.D. us Lilo Cunningham MD IMG XR PROCEDURES Final Resu lt * US Other (07/23/2018 4:30 PM CDT) Roe Cline MD PhD - 07/23/2018 4:30 PM CDT Roe Mathis MD PhD ? 07/23/2018 ??4:55 PM US Other Date/Time: 07/23/2018 4:30 PM Performed by: Lilo Cunningham MD Authorized by: Roe Mathis MD PhD Result [facility] Roe Mathis MD PhD IN CLINIC/BEDSIDE ORDER ISAAC Final Result * POCT creatinine for contrast evaluation (07/23/2018 4:28 PM CDT) Creatinine POC 0.9 0.6 - 1.1 mg/dL [facility] Blood specimen (specimen) 07/23/2018 4:28 PM CDT 07/23/2018 4:28 PM CDT Yanique [facility] - 07/23/2018 4:45 PM CDT Result [facility] Notinfile Unknown POINT OF CARE TEST ORDERABLES Final Result Performing Organization Address [facility] Co de Phone Number [facility] Department [place] [address] * Urinalysis, microscopic only (07/23/2018 4:23 PM CDT) WBC, ur 0-5 0 - 5 /HPF [facility] RBC, ur 0-2 0 - 2 /HPF [facility] Epithelial cells, squamous, ur 1-5 0 - 5 /HPF [facility] Urine, clean voided 07/23/2018 4:23 PM CDT 07/23/2018 4:40 PM CDT Narrative [facility] - 07/23/2018 4:48 PM CDT Result [facility] Roe Mathis MD PhD LAB URINE ORDERABLES Fi nal Result Performing Organization Address City/[facility]/ZIP Co de Phone Number [facility] Department [place] [address] * (ABNORMAL) Urinalysis reflex to microscopic and culture Urine, clean voided (07/23/2018 4:23 PM CDT) Color, ur Straw Yellow [facility] Clarity, ur Clear Clear [facility] Specific gravity, ur 1.004(L) 1.010 - 1.025 [facility] pH, urine 6.0 [facility] Protein, ur ql Negative Negative [facility] Glucose, ur ql Negative Negative [facility] Ketones, ur Negative Negative [facility] Bilirubin, ur Negative Negative [facility] Blood, ur Negative Negative [facility] Urobilinogen, ur <2.0 <2.0 mg/dL [facility] Nitrite, ur Negative Negative [facility] Leukocyte esterase, ur 2+(A) Negative [facility] Urine, clean voided 07/23/2018 4:23 PM CDT 07/23/2018 4:40 PM CDT Narrative [facility] - 07/23/2018 4:47 PM CDT THE BJ COLLECTION LOCATION IS [facility] Roe Mathis MD PhD LAB MICROBIOLOGY - [facility] ORDERABLES Final Result [facility] Department [place] [address] * Differential, auto (07/23/2018 4:20 PM CDT) Neutrophil abs 3.0 1.7 - 6.5 K/cumm [facility] Imm gran abs 0.0 0.0 - 0.1 K/cumm [facility] Lymphocyte abs 1.2 0.8 - 3.3 K/cumm [facility] Monocyte abs 0.3 0.2 - 0.8 K/cumm [facility] Eosinophil abs 0.0 0.0 - 0.5 K/cumm [facility] Basophil abs 0.0 0.0 - 0.1 K/cumm [facility] Neutrophil pct 65.1 % [facility] Comment: Interpretive Data Percent cell count reference ranges are not reported, since discordance with absolute values may lead to misinterpretation of CBC data. Current Interpretive Data was last revised on 2017. Imm gran pct 0.0 % [facility] Comment: Interpretive Data Percent cell count reference ranges are not reported, since discordance with absolute values may lead to misinterpretation of CBC data. Current Interpretive Data was last revised on 2017. Lymphocyte pct 25.9 % [facility] Comment: Interpretive Data Percent cell count reference ranges are not reported, since discordance with absolute values may lead to misinterpretation of CBC data. Current Interpretive Data was last revised on 2017. Monocyte pct 7.2 % [facility] Comment: Interpretive Data Percent cell count reference ranges are not reported, since discordance with absolute values may lead to misinterpretation of CBC data. Current Interpretive Data was last revised on 2017. Eosinophil pct 0.9 % [facility] Comment: Interpretive Data Percent cell count reference ranges are not reported, since discordance with absolute values may lead to misinterpretation of CBC data. Current Interpretive Data was last revised on 2017. Basophil pct 0.9 % [facility] Comment: Interpretive Data Percent cell count reference ranges are not reported, since discordance with absolute values may lead to misinterpretation of CBC data. Current Interpretive Data was last revised on 2017. Blood specimen (specimen) 07/23/2018 4:20 PM CDT 07/23/2018 4:40 PM CDT [facility] - 07/23/2018 4:55 PM CDT us Roe Mathis MD PhD LAB BLOOD ORDERABLES Fi nal Result [facility] Department [place] [address] * Type and screen (07/23/2018 4:20 PM CDT) ABO Rh A Negative [facility] Mathew, indirect Negative [facility] Blood specimen (specimen) 07/23/2018 4:20 PM CDT 07/23/2018 5:09 PM CDT Narrative [facility] - 07/23/2018 6:08 PM CDT Has the patient had Daratumumab (Darzalex) in the past 6 months?->Unknown THE BJ COLLECTION LOCATION IS [facility]-06 us Roe Mathsi MD PhD LAB BLOOD BANK TEST ORD ERABLES Final Result [facility] Department [place] [address] * (ABNORMAL) CBC with auto differential (07/23/2018 4:20 PM CDT) Pathologist [facility] WBC 4.6 3.8 - 9.9 K/cumm [facility] Hgb 13.6 11.9 - 15.5 g/dL [facility] Hct 41.2 35.6 - 45.5 % [facility] Plt 233 150 - 400 K/cumm [facility] MPV 10.8 9.1 - 12.3 fL [facility] RBC 4.19 3.90 - 5.20 M/cumm [facility] MCV 98.3(H) 81.3 - 96.4 fL [facility] MCH 32.5 27.1 - 33.3 pg [facility] MCHC 33.0 32.3 - 35.7 g/dL [facility] RDW CV 12.9 11.1 - 14.9 % [facility] RDW SD 45.9 35.7 - 48.1 fL [facility] NRBC abs 0.00 0.00 - 0.01 K/cumm [facility] Blood specimen (specimen) 07/23/2018 4:20 PM CDT 07/23/2018 4:40 PM CDT Narrative [facility] - 07/23/2018 4:55 PM CDT THE BJ COLLECTION LOCATION IS [address] Roe Mathis MD PhD LAB BLOOD ORDERABLES Fi nal Result [facility] Department [place] [address] * Comprehensive metabolic panel (07/23/2018 4:20 PM CDT) Sodium 137 135 - 145 mmol/L [facility] Potassium, pl See Comment 3.3 - 4.9 mmol/L [facility] Comment:CRDT; Grossly Hemoly zed sample; Unable to test. Chloride 102 97 - 110 mmol/L [facility] CO2 25 22 - 32 mmol/L [facility] Anion gap 10 2 - 15 mmol/L [facility] BUN 14 8 - 25 mg/dL [facility] [facility] Creatinine 0.83 0.60 - 1.10 mg/dL [facility] Glucose 91 70 - 199 mg/dL [facility] Comment: Interpretive Data Fasting glucose >/= 126 [...] classification and Diagnosis of Diabetes Diabetes Care 2017;40 (Suppl. 1):S11. Current interpretive data was last revised 2017. Calcium 9.2 8.5 - 10.3 mg/dL [facility] Bilirubin, total 0.3 0.1 - 1.2 mg/dL [facility] Protein, pl 8.0 6.5 - 8.5 g/dL [facility] Albumin 4.3 3.5 - 5.0 g/dL [facility] Alk phos 60 40 - 130 Units/L [facility] Comment:Hemolyzed; result ma y be falsely decreased. ALT See Comment 7 - 45 Units/L [facility] [place] Comment:Credited; Hemolyzed Specimen Credited; Hemolyzed Specimen AST See Comment 10 - 45 Units/L [facility] Comment:CRDT, Hemolyzed Spec imen CRDT, Hemolyzed Specimen Blood specimen (specimen) 07/23/2018 4:20 PM CDT 07/23/2018 4:40 PM CDT Narrative [facility] - 07/23/2018 5:23 PM CDT THE COLLECTION LOCATION IS [facility] CC-06R Roe Mathis MD PhD LAB BLOOD ORDERABLES Fi nal Result Performing Organization Address [facility] Co de Phone Number [facility] [place] [address] * Troponin I (07/23/2018 4:20 PM CDT) Pathologist [facility] Troponin I <0.03 0.00 - 0.03 ng/mL [facility] Comment: Interpretive Data: Normal plasma Troponin I concentrations can reach 1 ng/mL in the first two weeks of life and slowly decrease to adult levels (<0.03 ng/mL) by the age of 3 months. > 3 months ??<0.03 ng/mL > or = 18 years Serial determinations are recommended for the diagnosis of myocardial infarction. ??Temporal rise and fall are consistent with myocardial infarction when at least one value is above the 99th percentile upper reference limit for Troponin assay. References: 1. Clin Chem 2013;59:8819-0466 2. Journal of the [place] [employer] 2012;60:1581-98 Current Interpretive Data Last Revised Date: 2017. Blood specimen (specimen) 07/23/2018 4:20 PM CDT 07/23/2018 4:40 PM CDT Narrative [facility] - 07/23/2018 5:31 PM CDT THE COLLECTION LOCATION IS [facility] CC-06R Roe Mathis MD PhD LAB BLOOD ORDERABLES Ed ited Result - Final Performing Organization Address [facility] Co de Phone Number [facility] [place] [address] * Protime-INR (07/23/2018 4:20 PM CDT) PT 11.1 8.5 - 13.0 sec [facility] INR 1.04 0.80 - 1.21 [facility] Comment: Interpretive Data Inpatient therapeutic ranges* Atrial fibrillation ?2.0-3.0 INR Venous thrombo-embolism ?2.0-3.0 INR Bioprosthetic heart valve ?* Mechanical heart valve, bileaflet or tilting disk,aortic position ? 2.0-3.0 INR All other,or bileaflet or tilting disk, in mitral position ? 2.5-3.5 INR *See the pharmacy resource directory ([employer]) for an updated copy of the Tool Book at [email or web address] Current Interpretive Data was last revised 2011. Blood specimen (specimen) 07/23/2018 4:20 PM CDT 07/23/2018 4:40 PM CDT [facility]ative [facility] - 07/23/2018 5:15 PM CDT THE COLLECTION LOCATION IS [address] Roe Mathis MD PhD LAB BLOOD ORDERABLES Fi nal Result [facility] Department [place] [address] * aPTT (07/23/2018 4:20 PM CDT) [facility] aPTT 28.2 25.0 - 37.0 sec [facility] Comment: Interpretive Data Therapeutic heparin range:60.0 - 94.0 sec based on correlation with therapeutic heparin activity range of 0.3 -0.7 Units/mL. Current interpretive data was last revised on 2011. Blood specimen (specimen) 07/23/2018 4:20 PM CDT 07/23/2018 4:40 PM CDT Narrative [facility] - 07/23/2018 5:15 PM CDT THE BJ COLLECTION LOCATION IS [facility] us Roe Mahtis MD PhD LAB BLOOD ORDERABLES Fi nal Result [facility] [place] [address] documented in this encounter Visit Diagnoses Diagnosis Enlarged lymph node- Primary Enlargement of lymph nodes documented in this encounter Administered Medications Inactive Administered Medications - up to 3 most recent administrations Medication Order MAR Action Action Date Dose Rate Site ioversol (OPTIRAY 350) syringe syringe 100 mL 100 mL, intravenous, Once in imaging, contrast, Starting on Tu07/23/18 at 1703, For 1 dose Given 07/23/2018 5:14 PM CDT 100 mL metoprolol (LOPRESSOR) injection 2.5 mg 2.5 mg, intravenous, Administer over 1 Minutes, Once, On 07/23/18 at 1638, For 1 dose Given 07/23/2018 4:46 PM CDT 2.5 mg metoprolol (LOPRESSOR) injection 2.5 mg 2.5 mg, intravenous, Administer over 1 Minutes, Once, On 07/23/18 at 1734, For 1 dose Given 07/23/2018 5:48 PM CDT 2.5 mg documented in this encounter Active and Recently Administered Medications Times are shown in CDT. Scheduled Medication Order 07/21/2018 07/22/2018 07/23/2018 metoprolol (LOPRESSOR) injection 2.5 mg (COMPLETED) 2.5 mg, intravenous, Administer over 1 Minutes, Once, On 07/23/18 at 1638, For 1 dose 1646 (Given - Provid er: Alejandrina Barclay RN - Comment: IVP stop time: 1647) metoprolol (LOPRESSOR) injection 2.5 mg (COMPLETED) 2.5 mg, intravenous, Administer over 1 Minutes, Once, On 07/23/18 at 1734, For 1 dose 1748 (Given - Provid er: Alejandrina Barclay RN - Comment: IVP stop time: 1749) PRN Medication Order 07/21/2018 07/22/2018 07/23/2018 ioversol (OPTIRAY 350) syringe syringe 100 mL (COMPLETED) 100 mL, intravenous, Once in imaging, contrast, Starting on Sun07/23/18 at 1703, For 1 dose 1714 (Given - Provid er: RT Fredy) documented in this encounter Orders Lab Orders Without Results Count Last Ordered D ate First Ordered Date POCT CREATININE - DEVICE 1 07/23/2018 documented in this encounter
--- OUTSIDE RECORDS SUMMARY | 2024-04-27 15:51 | XMS_ITS | Encounter Summary ---
Author Organization [facility] Healthcare Address [address] [place] [address] Care Team Providers Care Employment Clerk Name Role Phone Unavailable Primary Care Provider Unavailabl e Encounter Details Date Type Department Care Team (Late st Contact Info) Description 01/28/2013 7:10 AM CDT - 01/28/2013 11:59 PM CDT Hospital Encounter [facility] Tyshawn Tavarez MD [address] [facility] [address] [place] [address] Other screening mammogram Social History Tobacco Use Types Packs/Day Years Used Date Smoking Tobacco: Never Assessed Comments Unknown Sex and Gender Information Value Date Recorded Sex Assigned at Not on file 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 Performed by: RESULT: Two views of each breast correlated to studies dating back through 01/11/09 demonstrates mild fibroglandular density bilaterally right breast greater than left as before. ??No suspicious mass or calcification is seen to suggest mammographic evidence of malignancy. Digital technology was employed plus computer-aided detection software (R2) was utilized in interpretation of these images. ??This facility utilizes a reminder system to notify patients of yearly mammograms. IMPRESSION: 1. ??NO DEFINITIVE MAMMOGRAPHIC EVIDENCE OF MALIGNANCY. 2. ??RECOMMEND ANNUAL FOLLOWUP. BI RADS CATEGORY 1 - NEGATIVE EXAM Interpreting Physician: ??LUCA ISLAS M.D. ??Read on: ??Jan ??8 2012 ??8:03A Transcribed by: ??tyler ??On: Jan ??2012 10:21A Approved Electronically by: ??LUCA ISLAS M.D. ??on: ??Jan ??2012 11:16A Ordering DR: TYSHAWN LORENZ Attending : TYSHAWN LORENZ Procedure Note Provider, MD Maia - 08/17/2016 CC: DR LUCA SANTIAGO Screening Mamm Bi Acc#: [id number] DATE OF EXAM: Jan 28 2013 CLINICAL HISTORY: Screen. Performed by: RESULT: Two views of each breast correlated to studies dating back through01/11/09 demonstrates mild fibroglandular density bilaterally right breastgreater than left as before. No suspicious mass or calcification is seento suggest mammographic evidence of malignancy. Digital technology wasemployed plus computer-aided detection software (R2) was utilized ininterpretation of these images. This facility utilizes a reminder systemto notify patients of yearly mammograms. IMPRESSION: 1. NO DEFINITIVE MAMMOGRAPHIC EVIDENCE OF MALIGNANCY. 2. RECOMMEND ANNUAL FOLLOWUP. BI RADS CATEGORY 1 - NEGATIVE EXAM Interpreting Physician: LUCA ISLAS M.D. Read on: Jan 28 2013 8:03A Transcribed by: tyler On: Jan 28 2013 10:21A Approved Electronically by: LUCA ISLAS M.D. on: Jan 28 2013 11:16A Ordering DR: TYSHAWN LORENZ Attending : TYSHAWN LORENZ us Historical Provider MD [facility] MAM[facility] PROCEDURES Samina l Result documented in this encounter Visit Diagnoses Diagnosis Other screening mammogram documented in this encounter
--- OUTSIDE RECORDS SUMMARY | 2024-04-27 15:51 | XMS_ITS | Encounter Summary ---
Author Organization [facility] Healthcare Address [address] [place] [address] Care Team Providers Care Upholstery Sewer Name Role Phone Unavailable Primary Care Provider Unavailabl e Encounter Details Date Type Department Care Team (Late st Contact Info) Description 01/11/2009 12:01 AM CDT - 01/11/2009 11:59 PM CDT Hospital Encounter [facility] Tyshawn Tavarez MD [address] [place] [address] Other screening mammogram Social History Tobacco Use Types Packs/Day Years Used Date Smoking Tobacco: Never Assessed Comments Unknown Sex and Gender Information Value Date Recorded Sex Assigned at Not on file 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
--- OUTSIDE RECORDS SUMMARY | 2024-04-27 15:51 | XMS_ITS | Encounter Summary ---
Author Organization [facility] Healthcare Address [address] [place] [address] Care Team Providers Care Wood Scaler Name Role Phone Unavailable Primary Care Provider Unavailabl e Reason for Referral * Diagnostic Imaging (Routine) - Closed Specialty Diagnoses / Procedures Referred By Eron bullock Referred To Contact Diagnoses Screening breast examination Procedures Screening Mammogram Bilateral W Anurag Dunlap MD Phone: tel: fax: [address] [phone] Referral ID Status Reason Start Date Expiration Date Visits Re quested Visits Authorized [id number] Closed 02/06/2018 08/18/2019 1 1 TRANSFER WORKER Reason for Visit * Diagnostic Imaging (Routine) - Closed Specialty Diagnoses / Procedures Referred By Eron bullock Referred To Contact Diagnoses Screening breast examination Procedures Screening Mammogram Bilateral W Anurag Dunlap MD Phone: tel: fax: [address] [phone] Referral ID Status Reason Start Date Expiration Date Visits Re quested Visits Authorized [id number] Closed 02/06/2018 08/18/2019 1 1 Encounter Details Date Type Department Care Team (Late st Contact Info) Description 03/25/2018 8:07 AM DRY TRANSFER WORKER - 03/25/2018 11:59 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 Hospital Encounter [facility] [address] [place] [address] Anurag Okeefe MD [address] [place] [phone] Screening breast examination Discharge Disposition: Discharge to home or self care Social History Tobacco Use Types Packs/Day Years Used Date Smoking Tobacco: Never Assessed Comments Unknown Sex and Gender Information Value Date Recorded Sex Assigned at Not on file Legal 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 Female 1:32 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 Gender Identity Not on file Sexual Orientation Not on file documented as of this encounter Discharge Disposition Disposition Code Departure Means Destination Discharge to home or self care documented in this encounter Plan of Treatment Not on file documented as of this encounter Procedures Procedure Name Priority Date/Time Associated Diagnosis Comments SCREENING MAMMOGRAM BILATERAL W KENDELL Schedule Routine, Read Routine (OP Routine) 03/25/2018 8:19 AM DRY TRANSFER WORKER Screening breast examination documented in this encounter Results * Screening Mammogram Bilateral W Kendell (03/25/2018 8:19 AM DRY TRANSFER WORKER) Anatomical Region Laterality Modality Breast Bilateral Mammography 03/25/2018 8:25 AM DRY TRANSFER WORKER Impressions 03/25/2018 8:27 AM DRY TRANSFER WORKER 1. ??NO DEFINITIVE MAMMOGRAPHIC EVIDENCE OF MALIGNANCY. 2. ??ANNUAL FOLLOW-UP RECOMMENDED. BI-RADS 1 Electronically signed by: Carlos Alcantar 03/25/2018 8:27 AM DRY TRANSFER WORKER SCREENING MAMMOGRAM BILATERAL W KENDELL HISTORY: Encounter for screening mammogram for malignant neoplasm of breast. TECHNIQUE: 2 views of each breast were obtained with bilateral breast tomosynthesis. COMPARISON: 03/05/2017. FINDINGS: Scattered parenchymal densities bilaterally. No suspicious mass or calcification is seen to suggest mammographic evidence of malignancy. Digital technology was employed plus computer aided detection software (R2) was utilized in interpretation of these images. ??This facility utilizes a reminder system to notify patient's of yearly mammograms. us Anurag Okeefe MD IMG MAMMO PROCEDURES Final Res ult documented in this encounter Visit Diagnoses Diagnosis Screening breast examination Other screening breast examination documented in this encounter
--- OUTSIDE RECORDS SUMMARY | 2024-04-27 15:51 | XMS_ITS | Encounter Summary ---
Author Organization [facility] Healthcare Address [address] [place] [address] Care Team Providers Care Counter Clerk Tractor Parts Name Role Phone Unavailable Primary Care Provider Unavailabl e Encounter Details Date Type Department Care Team (Late st Contact Info) Description 02/03/2014 7:45 AM CDT - 02/03/2014 11:59 PM CDT Hospital Encounter [facility] Tyshawn Tavarez MD [address] [facility] [address] [place] [address] Other screening mammogram; Other breast disorders Social History Tobacco Use Types Packs/Day Years Used Date Smoking Tobacco: Never Assessed Comments Unknown Sex and Gender Information Value Date Recorded Sex Assigned at Not on file 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 Gender Identity Not on file Sexual Orientation Not on file documented as of this encounter Plan of Treatment Not on file documented as of this encounter Procedures Procedure Name Priority Date/Time Associated Diagnosis Comments DIGITAL MAMMOGRAPHY Routine 02/03/2014 8 :07 AM CDT documented in this encounter Results * DIGITAL MAMMOGRAPHY (02/03/2014 8:07 AM CDT) Anatomical Region Laterality Modality Breast Mammography 02/03/2014 8:07 AM CDT Narrative 02/03/2014 3:22 PM CDT CC: ??DR LUCA SANTIAGO Screening Mamm Bi ??Acc#: ??[id number] DATE OF EXAM: ??Feb 03 2014 CLINICAL HISTORY: Routine screening. ??No current complaints. Performed by: cd RESULT: Four view screening mammogram is compared to a prior exam dated 01/28/13. There has been no interval change. ??The breasts are heterogeneously dense. ??Asymmetric fibroglandular density is present in the anterior right breast which is unchanged. ??There are no new masses or suspicious microcalcifications. Digital technology was employed plus computer-aided detection software (R2) was utilized in interpretation of these images. ??This facility utilizes a reminder system to notify patients of yearly mammograms. IMPRESSION: BI-RADS CATEGORY 2 - BENIGN FINDINGS RECOMMEND ROUTINE ??FOLLOWUP. Interpreting Physician: ??DR GEORGE BRUNO M.D. ??Read on: ??Feb 03 2014 8:07A Transcribed by: ??tyler ??On: Feb 03 2014 10:25A Approved Electronically by: ??DAMION Wilder, DR VAZQUEZ ??on: ??Feb 03 2014 3:22P Ordering DR: TYSHAWN LORENZ Attending : TYSHAWN LORENZ Procedure Note Provider, MD Maia - 08/17/2016 CC: DR LUCA SANTIAGO Screening Mamm Bi Acc#: [id number] DATE OF EXAM: Feb 03 2014 CLINICAL HISTORY: Routine screening. No current complaints. Performed by: cd RESULT: Four view screening mammogram is compared to a prior exam dated 01/28/13.There has been no interval change. The breasts are heterogeneously dense.Asymmetric fibroglandular density is present in the anterior right breastwhich is unchanged. There are no new masses or suspiciousmicrocalcifications. Digital technology was employed plus computer-aideddetection software (R2) was utilized in interpretation of these images.This facility utilizes a reminder system to notify patients of yearlymammograms. IMPRESSION: BI-RADS CATEGORY 2 - BENIGN FINDINGS RECOMMEND ROUTINE FOLLOWUP. Interpreting Physician: DR GEORGE BRUNO M.D. Read on: Feb 03 20148:07A Transcribed by: tyler On: Feb 03 2014 10:25A Approved Electronically by: DAMION Wilder, DR VAZQUEZ on: Feb 03 20143:22P Ordering DR: TYSHAWN LORENZ Attending DR: TYSHAWN LORENZ Historical Provider MD [facility] MAMMO PROCEDURES Samina l Result documented in this encounter Visit Diagnoses Diagnosis Other screening mammogram Other breast disorders documented in this encounter
--- OUTSIDE RECORDS SUMMARY | 2024-04-27 15:51 | XMS_ITS | Encounter Summary ---
Author Organization [facility] Healthcare Address [address] [place] [address] Care Team Providers Care Split Leather Department Supervisor Name Role Phone Unavailable Primary Care Provider Unavailabl e Encounter Details Date Type Department Care Team (Late st Contact Info) Description 01/23/2011 7:15 AM CDT - 01/23/2011 11:59 PM CDT Hospital Encounter [facility] Anurag Carrillo MD [address] [place] [address] Other screening mammogram Social History Tobacco Use Types Packs/Day Years Used Date Smoking Tobacco: Never Assessed Comments Unknown Sex and Gender Information Value Date Recorded Sex Assigned at Not on file 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
--- OUTSIDE RECORDS SUMMARY | 2024-04-27 15:51 | XMS_ITS | Encounter Summary ---
Author Organization [facility] Healthcare Address [address] [place] [address] Care Team Providers Care Special Educator Name Role Phone Unavailable Primary Care Provider Unavailabl e Encounter Details Date Type Department Care Team (Late st Contact Info) Description 11/14/2006 12:01 AM CDT - 11/14/2006 11:59 PM CDT Hospital Encounter [facility] Tyshawn Tavarez MD [address] [facility] [address] [place] [address] Social History Tobacco Use Types Packs/Day Years Used Date Smoking Tobacco: Never Assessed Comments Unknown Sex and Gender Information Value Date Recorded Sex Assigned at Not on file 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
== END 2024-04-20 14:35 | disposition home or self-care (01) ==
PROVIDERS: Emergency Provider Nurse Practitioner Family; PCP Family Medicine
DX: J01.90 Acute sinusitis, unspecified (principal); B96.89 Other specified bacterial agents as the cause of diseases classified elsewhere; I48.0 Paroxysmal atrial fibrillation; E03.9 Hypothyroidism, unspecified; I25.10 Atherosclerotic heart disease of native coronary artery without angina pectoris; I10 Essential (primary) hypertension
CPT/HCPCS: 99213; G0463

== ENCOUNTER 2024-07-04 12:54 | Outpatient (CLI) | payer MEDICARE, OTHER, SELFPAY ==
--- NOTE | ~2024-07-04 | US_ITS ---
Right groin ULTRASOUND (Doppler ultrasound interrogation techniques used as needed for this exam.) Ordering provider: Davin Estrada MD History: . anterior hip swelling and intermittent pain . Comparison: None. FINDINGS/impression: No definite abnormality seen. Reviewed, dictated and finalized at location A.
--- OUTSIDE RECORDS SUMMARY | 2024-07-04 13:01 | XMS_ITS | Clinical Summary ---
Author Organization [facility] Address [address] [place] [address] Care Team Providers Care Side Door Worker Name Role Phone Unavailable Primary Care Provider Unavailabl e Source Comments [facility],non-owned Affiliates and Associated Physician Practices is amultiple site organization consisting of ambulatory clinics and hospital sitesin [place], [place], [place] and [place]. This disclosure is being madepursuant to the Care Everywhere program and may not contain all information available regarding this patient. Last updated 18.[facility] Allergies No known active allergies Immunizations Name [...] Comments BONE DENSITY TESTING 1945 MEDICARE AWV 12 MONTHS 1945 HEPATITIS C SCREENING 12/07/1963 DTAP/TDAP/TD VACCINES (1 - Tdap) 1964 PNEUMOCOCCAL VACCINE 50+ (1 of 1 - PCV) 12/12/1995 ZOSTER VACCINE (1 of 2) 12/12/1995 Respiratory Syncytial Virus (RSV) Vaccine Pt: or over 60 yrs (1 - 1-dose 75+ series) 2020 COVID-19 VACCINE ( - 2023-2 5 season) 2023 INFLUENZA VACCINE (#1) 2023 01/21/2018 DEPRESSION SCREENING 04/23/2024 HEPATITIS B VACCINE Aged Out No longe r eligible based on patient's age to complete this topic HIB VACCINE Aged Out No longer eligi ble based on patient's age to complete this topic HPV VACCINE Aged Out No longer eligi ble based on patient's age to complete this topic MENINGOCOCCAL (Group B) VACC INE SHARED DECISION-MAKING Aged Out No longer eligibl e based on patient's age to complete this topic MENINGOCOCCAL GROUPS A/C/Y/W VACCINE Aged Out No longer eligible b ased on patient's age to complete this topic CELE CRAIG Personal/Family 1945 [address] [place] [address]
--- OUTSIDE RECORDS SUMMARY | 2024-07-04 13:01 | XMS_ITS | Referral Summary ---
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 Gender Identity Not on file Sexual Orientation Not on file Last Filed Vital Signs Vital Sign Reading Time Taken Comments Blood Pressure 149/71 05/16/2023 2:45 AM SUPERVISOR INSPECTION ROOM Pulse 71 05/16/2023 2:45 AM SUPERVISOR INSPECTION ROOM Temperature 36.3 C (97.3 F) 05/15/2023 11:36 PM SUPERVISOR INSPECTION ROOM Respiratory Rate 16 05/16/2023 2:45 AM SUPERVISOR INSPECTION ROOM Oxygen Saturation 97% 05/16/2023 2:45 AM SUPERVISOR INSPECTION ROOM Inhaled Oxygen Concentration - - Weight 58.5 kg (129 lb) 05/15/2023 11:36 PM SUPERVISOR INSPECTION ROOM Height 160 cm (5' 3 ) 10/17/2023 2:03 PM CDT Body Mass Index 22.85 05/15/2023 11:36 PM SUPERVISOR INSPECTION ROOM Plan of Treatment Not on file Procedures Procedure Name Priority Date/Time Associated Diagnosis Comments SCREENING MAMMOGRAM BILATERAL W KENDELL Schedule Routine, Read Routine (OP Routine) 10/17/2023 2:13 PM CDT Screening mammogram, encounter for DEXA AXIAL SKELETON BONE DENSITY 1 OR MORE SITES Schedule Routine, Read Routine (OP Routine) 03/06/2023 8:17 AM SUPERVISOR INSPECTION ROOM Encounter for gynecological examination (general) (routine) without [...] SCREENING MAMMOGRAM HISTORY: Routine screening mammography. 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 Past history of cancer. Has taken vitamin-D and calcium. Performs regular weight-bearing exercise. Regularly consumes dairy products. Drinks caffeinated beverages. COMPARISON: [...] mass (T-score between -1.0 and -2.5) replaces the previously used term osteopenia Osteoporosis (T-score = or below -2.5) Medical evaluation for secondary causes of low bone mineral density may be appropriate. FRAX is a World Health Organization validated fracture risk assessment tool that calculates a person's 10 year probability of a major osteoporosis related fracture and hip fracture. According to the National Osteoporosis Foundation guidelines, postmenopausal [...] Omid Nair M.D. 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 RB: GO Report ID: [id number] Reading Location: [place] [address] Angela Alcocer NP IMG DXA PROCEDURES Final Resu lt from Last 3 Months or Most Recently Relevant to Health Maintenance Insurance MEDICARE [facility] MEDICARE [facility] Care Teams Clinic Office Manager Relationship Specialty Start Date End Date Davin Estrada MD [address] [address] PCP - General Family Medicine 02/27/23
--- OUTSIDE RECORDS SUMMARY | 2024-07-04 13:01 | XMS_ITS | Patient Health Summary ---
Author Organization [facility] [employer] Address [address] [place] [address] Care Team Providers Care Sales Training Representative Name Role Phone Unavailable Primary Care Provider Unavailabl e Note from [facility],non-owned Affiliates and Associated Physician Practices is amultiple site organization consisting of ambulatory clinics and hospital sitesin [place], [place], [place] and [place]. This disclosure is being madepursuant to the Care Everywhere program and may not contain all information available regarding this patient. Last updated 18.[facility] [employer] Allergies No known active allergies Immunizations * INFLUENZA VACCINE, HIGH-DOSE, QUADR. (FLUZONE HIGH-DOSE QUADRIVALENT; 65Y+), 0.7 ML (HD-IIV4)(Given 01/21/2018) Social History Tobacco Use Types Packs/Day Years Used Date Smoking Tobacco: Never Assessed Sex and Gender Information Value Date Recorded Sex Assigned at Not on file Gender Identity Not on file Sexual Orientation Not on file
--- OUTSIDE RECORDS SUMMARY | 2024-07-04 13:01 | XMS_ITS | Clinical Summary ---
Author Organization [facility] Address [address] [place] [address] Care Team Providers Care Take Up Supervisor Name Role Phone Davin Estrada MD Primary Care Provider [phone] Allergies No known active allergies Medications No [...] on file Legal Sex Female 1:32 PM GRINDING WHEEL FACER Gender Identity Not on file Sexual Orientation Not on file Obstetrics History Para Term AB IAB SAB Ectopic Multiple Livin g Live Births 3 2 2 Date Outcome GA Total Labor Labor/2nd/3rd Weight Sex Type Anes PTL Yasmin A1 A5 Name Clin Term Term Last Filed Vital Signs Vital Sign Reading Time Taken Comments Blood Pressure 149/71 05/16/2023 2:45 AM GRINDING WHEEL FACER Pulse 71 05/16/2023 2:45 AM GRINDING WHEEL FACER Temperature 36.3 C (97.3 F) 05/15/2023 11:36 PM GRINDING WHEEL FACER Respiratory Rate 16 05/16/2023 2:45 AM GRINDING WHEEL FACER Oxygen Saturation 97% 05/16/2023 2:45 AM GRINDING WHEEL FACER Inhaled Oxygen Concentration - - Weight 58.5 kg (129 lb) 05/15/2023 11:36 PM GRINDING WHEEL FACER Height 160 cm (5' 3 ) 10/17/2023 2:03 PM CDT Body Mass Index 22.85 05/15/2023 11:36 PM GRINDING WHEEL FACER Plan of Treatment Health Maintenance Due Date Last Done Comments Depression Screening 1945 Fall Risk Assessment 1945 Hepatitis C Screening 1945 DTaP/Tdap/Td Vaccine (1 - Tdap) 1956 Hepatitis B Screening 12/12/1963 Well Visit 65+ 2010 Zoster Vaccine (2 of 3) 03/23/2014 01/26/2014 Pneumococcal vaccine 65+ (2 of 2 - PPSV23) 02/07/2020 02/06/2019 Influenza Vaccine (#1) 2023 9, [...] Read Routine (OP Routine) 03/06/2023 8:17 AM GRINDING WHEEL FACER Encounter for gynecological examination (general) (routine) without [...] 1 or 2 Site (03/06/2023 8:17 AM GRINDING WHEEL FACER) Anatomical Region Laterality Modality Body N/A Other 03/07/2023 1:29 PM GRINDING WHEEL FACER Narrative 03/07/2023 1:35 PM GRINDING WHEEL FACER EXAM DESCRIPTION: DEXA AXIAL SKELETON BONE DENSITY 1 OR MORE SITES REASON FOR STUDY: 77 year old postmenopausal white female with given history of: Z01.419, Z13.820 screening Prefitter/Model: [employer] SL (S/N [id number]) CLINICAL INFORMATION: Current height: 63 inches Maximum [...] Omid Nair M.D. RB: GO Report ID: [id number] Reading Location: [place] [address] Procedure Note Omid Nair MD - 03/07/2023 EXAM DESCRIPTION: DEXA AXIAL SKELETON BONE DENSITY 1 OR MORE SITES REASON FOR STUDY: 77 year old postmenopausal white female with given history of: Z01.419, Z13.820 screening Prefitter/Model: [employer] (S/N [id number]) CLINICAL INFORMATION: Current height: 63 inches Maximum [...] Omid Nair M.D. RB: GO Report ID: [id number] Reading Location: [id number] Angela Alcocer NP IMG DXA PROCEDURES Final Resu lt from Last 3 Months or Most Recently Relevant to Health Maintenance Insurance MEDICARE [facility] MEDICARE [facility] MEDICARE [facility] [place] [address] Care Teams Take Up Supervisor Relationship Specialty Start Date End Date Davin Estrada MD [address] [address] PCP - General Family Medicine 02/27/23
--- OUTSIDE RECORDS SUMMARY | 2024-07-04 13:01 | XMS_ITS | Encounter Summary ---
Author Organization [facility] Address [address] [place] [address] Care Team Providers Care Rn Allergy Name Role Phone Davin Estrada MD Primary Care Provider [phone] Encounter Details Date Type Department Care Team (Late st Contact Info) Description 05/18/2020 Telephone [facility] [address] [place] [address] Veronica Vargas, RT Social History Tobacco Use Types Packs/Day Years Used Date Smoking Tobacco: Never Assessed Comments No Sex and Gender Information Value Date Recorded Sex Assigned at Not on file Legal Sex Female 1:32 PM DENTAL RESIDENT Gender Identity Not on file Sexual Orientation Not on file documented as of this encounter Plan of Treatment Not on file documented as of this encounter Visit Diagnoses Not on filedocumented in this encounter Care Teams Rn Allergy Relationship Specialty Start Date End Date Davin Estrada MD [address] [address] PCP - General Family Medicine 02/27/23 documented as of this encounter
--- OUTSIDE RECORDS SUMMARY | 2024-07-04 13:01 | XMS_ITS | Referral Summary ---
Author Organization [facility] [employer] Address [address] [place] [address] Care Team Providers Care Quiller Hand Name Role Phone Unavailable Primary Care Provider Unavailabl e Source Comments [facility] [employer],non-owned Affiliates and Associated Physician Practices is amultiple site organization consisting of ambulatory clinics and hospital sitesin [place], [place], [place] and [place]. This disclosure is being madepursuant to the Care Everywhere program and may not contain all information available regarding this patient. Last updated 18.[employer] Allergies No known active allergies Immunizations Name [...] Treatment Not on file RAFACELE Personal/Family 1945 [address] [place] [address]
--- OUTSIDE RECORDS SUMMARY | 2024-07-04 13:01 | XMS_ITS | Clinical Summary ---
Author Organization [facility] Address [address] [place] [address] Care Team Providers Care Chemistry Physics Teacher Name Role Phone Davin Estrada MD Primary Care Provider [phone] Lee Villaseñor MD Unavailable Darell Garcia MD Unavailable Jun Oscar NP Unavailable [phone] Judah House MD Unavailable [phone] Allergies No known active allergies Medications vitamin C (ASCORBIC ACID) 500 MG tablet Take 2 tablets (1,000 mg total) by mouth daily. Active Vitamin D3 (CHOLECALCIFER OL) 50 mcg tablet Take 1 tablet (50 mcg total) by mouth daily. Active vitamin E 180 MG (400 UNIT) capsule Take 1 capsule (400 Units total) by mouth daily. Active aspirin EC (ECOTRIN) 81 MG tablet Take 1 tablet (81 mg total) by mouth daily. 05/04/19 24 Active Acetaminophen (TYLENOL ARTHRITIS PAIN OR) Take 2 tablets by mouth as needed (nightly for arthritis pain). Active vitamin B-12 (CYANOCOBALAMI N) 500 MCG tablet Take 1 tablet (500 [...] mouth nightly as needed for Sleep. Active sacubitril-ame sartan (ENTRESTO) 24-26 MG tablet take 1 tablet by mouth twice daily 180 tablet 3 10/29/19 24 Active spironolactone (ALDACTONE) 25 MG tablet Take 0.5 tablets (12.5 mg total) by mouth daily. 45 tablet 3 11/30/19 24 Active ELIQUIS 5 MG tablet TAKE 1 TABLET(5 MG) BY MOUTH TWICE DAILY 60 tablet 6 01/23/20 24 Active levothyroxine (SYNTHROID) 50 MCG tablet Take 1 tablet (50 mcg total) by mouth every morning. 01/16/20 24 Active zolpidem (AMBIEN) 10 MG tablet Take 0.5 tablets (5 mg total) by mouth nightly as needed. 11/05/19 24 Active rosuvastatin (CRESTOR) 40 MG tablet TAKE 1 TABLET(40 MG) BY MOUTH EVERY NIGHT AT BEDTIME 90 tablet 3 02/14/20 24 Active metoprolol succinate ER (TOPROL-XL) 50 MG 24 hr tabletIndicati ons:SVT (supraventricu lar tachycardia) (HHS/HCC) Take 1 tablet (50 mg total) by mouth 2 (two) times daily. 180 tablet 2 06/12/19 25 Active metoprolol succinate ER (TOPROL-XL) 50 MG 24 hr tabletIndicati ons:SVT (supraventricu lar tachycardia) (HHS/HCC) Take 1 tablet (50 mg total) by mouth 2 (two) times daily. 180 tablet 3 06/26/19 24 025 Discontinued(Re order) metoprolol succinate ER (TOPROL-XL) 50 MG 24 hr tabletIndicati ons:SVT (supraventricu lar tachycardia) (HHS/HCC) Take 1 tablet (50 mg total) by mouth 2 (two) times daily. 180 tablet 2 06/10/19 25 025 Discontinued Active Problems Problem Noted Date Diagnosed Date PAF (paroxysmal atrial fibrillation) (CMS/HCC HH S/HCC) 07/17/2023 Ischemic cardiomyopathy 07/17/2023 Mixed hyperlipidemia 07/17/2023 S/P CABG x 3 06/05/2023 Pseudoaneurysm 05/28/2023 CAD (coronary artery disease) 05/23/2023 Cardiomyopathy, unspecified type ([facility]/ C) 05/04/2023 Nonrheumatic aortic valve insufficiency 05/04/19 24 Hypertension 04/27/2023 SVT (supraventricular tachycardia) ([facility]) Encounters Date Type Department Care Team Description 06/12/2024 [facility] [address] [place] [address] Judah House MD 06/12/2024 MyChart [facility] [address] [place] [address] Judah House MD Prescription refil 06/10/2024 Orders Only [facility] [address] [place] [address] Judah House MD from Last 3 Months Family History [...] 0.6 oz pur e alcohol) occasional wine [employer] Utilities Answer Date Recorded In the past 12 months has [facility] [employer], gas, oil, or water [employer] threatened to shut off services in your [...] and heating? Not hard at all 06/06/2023 [facility] of Occupat ional Health - Occupational Stress [...] place to sleep or slept in a mcc (including now)? No 06/06/2023 Comments Unknown Sex and Gender Information Value Date Recorded Sex Assigned at Not on file Legal Sex Female 3:10 PM MAINTENANCE TECHNICIAN Gender Identity Not on file Sexual Orientation Not on file Last Filed Vital Signs Vital Sign Reading Time Taken Comments Blood Pressure 136/72 02/12/2024 11:41 AM CDT Pulse 65 02/12/2024 11:41 AM CDT Temperature 37 C (98.6 F) 06/11/2023 7:52 AM MAINTENANCE TECHNICIAN Respiratory Rate 16 02/12/2024 11:41 AM CDT [...] Description 02/12/2025 11:30 AM CDT Office Visit [facility] eld [address] [place] [address] Jun Oscar, JIGGER MACHINE OPERATOR [address] [place], [place] [address] Health Maintenance Due Date Last Done Comments [...] Scan (General) Completed 03/06/2023, 03/06/2023, 05/19/2020 Meningococcal B Vaccine Aged Out No l onger eligible based on patient's age to complete this topic Meningococcal Vaccine Aged Out No azucena vandana [...] from hospital Lifestyle No Shanel Haynes, RN Medical Devices Implanted Type Area V Belt Curer Device Identifier Shelf Expiration Date Model / Serial / Lot Atriclip-Flex Aline Exclusion Atricure 40mm - [id number] Implanted:Qty: 1 on 06/05/2023 by Ahmet Levi MD at [facility] Clip Implant N/A: Heart ATRICURE 11/21/2025 [facility] / / [id number] Insurance MEDICARE [facility] Advance Directives Documents on File Type Date Recorded Patient Semiconductor Lab Technician Expl anation Advance Directives and Living Will 05/29/2023 1:53 PM 10/06/2014 - LIVING WILL DECLARATION Power of [employer] Administrator 05/29/2023 Jaydon Salcido, HCA-spouse; Cadence Salcido, 1st [...] Relationship Healthcare Agent Relationship Communication Jaydon Salcido (POAH) Spouse Health Care Agent [email or web address] maile Walters Daughter First Alternate Health Care Agent [email or web address] Gilberto Salcido Son Second Alterna te Health Care Agent Care Teams Chemistry Physics Teacher Relationship Specialty Start Date End Date Davin Estrada MD [address] [place] [address] [address] [place] [address] PCP - General FAMILY PRACTICE 04/12/23 Lee Villaseñor MD [address] [place] [address] [address] [place] [address] Consulting Physician INTERNAL MEDICINE 05/28/23 Darell Garcia MD [address] [place] [address] Consulting Physician CLINICAL CARDIAC ELECTROPHYSIOLOGY 02/08/24 Jun Oscar NP [address] [place] [address] Nurse Practitioner NURSE PRACTITIONER 02/08/24 Judah House MD [address] [place] [address] Consulting Physician INTERVENTIONAL CARDIOLOGY 02/12/24
--- OUTSIDE RECORDS SUMMARY | 2024-07-04 13:02 | XMS_ITS | Encounter Summary ---
Author Organization [facility] Address [facility] [place] [address] Care Team Providers Care Site Worker Name Role Phone Davin Estrada MD Primary Care Provider Lee Villaseñor MD Unavailable Darell Garcia MD Unavailable [phone] Jun Oscar NP Unavailable [phone] Judah House MD Unavailable Encounter Details Date Type Department Care Team (Late st Contact Info) Description 06/12/2023 Hospital Follow-up Call [facility] [address] [place] [address] Josselyn Bernal, RN Social History Tobacco Use Types Packs/Day Years Used Date Smoking Tobacco: Never Passive Smoke Exposure: Never Smokeless Tobacco: Never Alcohol Use Standard Drinks/Week Comments Not Currently 0 (1 standard drink = 0.6 oz pur e alcohol) occasional wine C Utilities Answer Date Recorded In the past 12 months has th e electric, gas, oil, or water [employer] threatened to shut off services in your [...] [facility] [place] of Occupat ional Health - Occupational Stress [...] on file Legal Sex Female 3:10 PM RECORD CENTER SPECIALIST Gender Identity Not on file Sexual [...] 11:30 AM CDT [facility] [address] [place] [address] Jun Oscar NP [address] [place] [address] documented as of this encounter Goals Goal Patient Goal Type Associated Problems Recent Progress Patient-Stated? Author Patient will return to prior living situation and remain independent in ADLs upon discharge from hospital Lifestyle No Shanel Haynes RN documented as of this encounter Visit Diagnoses Not on filedocumented in this encounter Care Teams Site Worker Relationship Specialty Start Date End Date Davin Estrada MD [address] [address] [address] [place] [address] PCP - General FAMILY PRACTICE 04/12/23 Lee Villaseñor MD [address] [address] [address] [place] [address] Consulting Physician INTERNAL MEDICINE 05/28/23 Darell Garcia MD [address] [facility] [address] [address] Consulting Physician CLINICAL CARDIAC ELECTROPHYSIOLOGY 02/08/24 Jun Oscar NP [address] [place], [place] [address] Nurse Practitioner NURSE PRACTITIONER 02/08/24 Judah House MD [address] [place], [place] [address] Consulting Physician INTERVENTIONAL CARDIOLOGY 02/12/24 documented as of this encounter
--- OUTSIDE RECORDS SUMMARY | 2024-07-04 13:02 | XMS_ITS | Encounter Summary ---
Author Organization [facility] Address [facility] [place] [address] Care Team Providers Care Senior Category Manager Name Role Phone Davin Estrada MD Primary Care Provider Lee Villaseñor MD Unavailable Darell aGrcia MD Unavailable [phone] Jun Oscar NP Unavailable [phone] Judah House MD Unavailable [phone] Encounter Details Date Type Department Care Team (Late st Contact Info) Description 04/17/2023 Hospital Follow-up Call [facility] Unit [address] [place] [address] Josselyn Bernal, RN Social History Tobacco Use Types Packs/Day Years Used Date Smoking Tobacco: Never Passive Smoke Exposure: Never Smokeless Tobacco: Never [facility] Utilities Answer Date Recorded In [...] on file Legal Sex Female 3:10 PM SALES EXHIBITOR Gender Identity Not on file Sexual Orientation Not on file documented as of this encounter Functional Status * Are you deaf or do you have serious difficulty hearing Answer Date of Assessment Author Status No 04/12/2023 8:35 PM SALES EXHIBITOR Trenton Ngo RN Active * Are you [...] 02/12/2025 11:30 AM CDT Office Visit [facility] el [address] [place] [address] Jun Oscar, ACRYLIC FABRICATOR [address] [place] [address] documented as of this encounter Visit Diagnoses Not on filedocumented in this encounter Care Teams Senior Category Manager Relationship Specialty Start Date End Date Davin Estrada MD [address] [place] [address] PCP - General FAMILY PRACTICE 04/12/23 Lee Villaseñor MD [address] [place] [address] Consulting Physician INTERNAL MEDICINE 05/28/23 Darell Garcia MD [address] [facility] [address] [place] [address] Consulting Physician CLINICAL CARDIAC ELECTROPHYSIOLOGY 02/08/24 Jun Oscar NP [address] [place] [address] Nurse Practitioner NURSE PRACTITIONER 02/08/24 Judah House MD [address] [place], [place] [address] Consulting Physician INTERVENTIONAL CARDIOLOGY 02/12/24 documented as of this encounter
--- OUTSIDE RECORDS SUMMARY | 2024-07-04 13:02 | XMS_ITS | Encounter Summary ---
Author Organization [facility] Address [facility] [place] [address] Care Team Providers Care Electron Tube Assembler Name Role Phone Davin Estrada MD Primary Care Provider Lee Villaseñor MD Unavailable Kxo-Ez-LnpozDarell Silver MD Unavailable Jun Oscar COMBINATION WELDER APPRENTICE Unavailable [phone] Judah House MD Unavailable Encounter Details Date Type Department Care Team (Late st Contact Info) Description 09/02/2023 TastemakerX Message Enc [facility] ield [address] [place] [address] Judah House MD [address] [facility] [address] [place], [place] [address] Spironolactone Social History Tobacco Use Types Packs/Day Years Used Date Smoking Tobacco: Never Passive Smoke Exposure: Never Smokeless Tobacco: Never Alcohol Use Standard Drinks/Week Comments Not Currently 0 (1 standard drink = 0.6 oz pur e alcohol) occasional wine [facility] Utilities Answer Date Recorded In the past 12 months has [employer] gas, oil, or water company threatened to [...] and heating? Not hard at all 06/06/2023 [facility] of Occupat ional Health - Occupational Stress [...] on file Legal Sex Female 3:10 PM PAINTER SET Gender Identity Not on file Sexual Orientation [...] Description 02/12/2025 11:30 AM CDT Office Visit [facility] eld [address] [place] [address] Jun Oscar, COMBINATION WELDER APPRENTICE [address] [place] [address] documented as of this encounter Goals Goal Patient Goal Type Associated Problems Recent Progress Patient-Stated? Author Patient will return to prior living situation and remain independent in ADLs upon discharge from hospital Lifestyle No Shanel Haynes RN documented as of this encounter Visit Diagnoses Not on filedocumented in this encounter Care Teams Electron Tube Assembler Relationship Specialty Start Date End Date Davin Estrada MD [address] [address] [address] [place] [address] PCP - General FAMILY PRACTICE 04/12/23 Lee Villaseñor MD [address] [address] [address] [place] [address] Consulting Physician INTERNAL MEDICINE 05/28/23 Darell Garcia MD [address] [facility] [address] [place] [address] Consulting Physician CLINICAL CARDIAC ELECTROPHYSIOLOGY 02/08/24 Jun Oscar NP [address] [place], [place] [address] Nurse Practitioner NURSE PRACTITIONER 02/08/24 Judah House MD [address] [place], [place] [address] Consulting Physician INTERVENTIONAL CARDIOLOGY 02/12/24 documented as of this encounter
--- OUTSIDE RECORDS SUMMARY | 2024-07-04 13:02 | XMS_ITS | Encounter Summary ---
Author Organization [facility] Address Pending sale to [facility] [place] [address] Care Team Providers Care Adult Remedial Education Instructor Name Role Phone Davin Estrada MD Primary Care Provider Lee Villaseñor MD Unavailable Darell Garcia MD Unavailable [phone] Jun Oscar NP Unavailable [phone] Judah House MD Unavailable [phone] Encounter Details Date Type Department Care Team (Late st Contact Info) Description 04/27/2023 Qudinit Message Enc [place] [facility] [address] [place] [address] Darell Garcia MD [address] [facility] [address] [place] [id number] Cele Salcido blood pressure Social History Tobacco Use Types Packs/Day Years Used Date Smoking Tobacco: Never Passive Smoke Exposure: Never Smokeless Tobacco: Never Alcohol Use Standard Drinks/Week Comments Yes 0 (1 standard drink = 0.6 oz pur e alcohol) occasional wine C Utilities Answer Date Recorded In the past 12 months has [employer], gas, oil, or water [employer] threatened to shut off services in your [...] and heating? Not hard at all 04/27/2023 [facility] of Occupat ional Health - Occupational Stress [...] on file Legal Sex Female 3:10 PM REGULATOR MECHANIC Gender Identity Not on file Sexual Orientation [...] or making decisions? No 04/27/2023 11:00 PM REGULATOR MECHANIC Pia Chowdary RN Active * Because of a physical, mental, or emotional condition, do you have serious difficulty concentrating, remembering, or making decisions? Answer Entry Date Author Status No 04/12/2023 8:35 PM Trenton Taylor RN Active documented in this encounter Plan of Treatment Upcoming Encounters Date Type Department Care Team (Late st Contact Info) Description 02/12/2025 11:30 AM CDT Office Visit [place] [facility] eld [address] [place] [address] Jun Oscar, FURNITURE ARRANGER [address] [place] [address] documented as of this encounter Visit Diagnoses Not on filedocumented in this encounter Care Teams Adult Remedial Education Instructor Relationship Specialty Start Date End Date Davin Estrada MD [address] [place], [place] [id number] PCP - General FAMILY PRACTICE 04/12/23 Lee Villaseñor MD [address] [place] [address] Consulting Physician INTERNAL MEDICINE 05/28/23 Darell Garcia MD [address] [place] [address] [address] Consulting Physician CLINICAL CARDIAC ELECTROPHYSIOLOGY 02/08/24 Jun Oscar, GIULIA [address] [place] [address] Nurse Practitioner NURSE PRACTITIONER 02/08/24 Judah House MD [address] [place] [address] Consulting Physician INTERVENTIONAL CARDIOLOGY 02/12/24 documented as of this encounter
--- OUTSIDE RECORDS SUMMARY | 2024-07-04 13:02 | XMS_ITS | Encounter Summary ---
Author Organization [facility] Address [facility] [place] [address] Care Team Providers Care Highway Maintenance Worker Name Role Phone Davin Estrada MD Primary Care Provider Lee Villaseñor MD Unavailable Darell Garcia MD Unavailable [phone] Jun Oscar NP Unavailable [phone] Judah House MD Unavailable Encounter Details Date Type Department Care Team (Late st Contact Info) Description 05/09/2023 MyChart Message Enc [place] [facility] [address] [place] [address] Darell Garcia MD [address] [facility] [address] [place] [address] dizziness Social History Tobacco Use Types Packs/Day Years Used Date Smoking Tobacco: Never Passive Smoke Exposure: Never Smokeless Tobacco: Never Alcohol Use Standard Drinks/Week Comments Yes 0 (1 standard drink = 0.6 oz pur e alcohol) occasional wine C Utilities Answer Date Recorded In the past 12 months has [employer], gas, oil, or water [employer] threatened to shut off services in your [...] and heating? Not hard at all 04/27/2023 [facility] of Occupat ional [...] slept in a prison (including now)? No 04/27/2023 Comments Unknown Sex and Gender Information Value Date Recorded Sex Assigned at Not on file Legal Sex Female 3:10 PM TIMBER FRAMER HELPER Gender Identity Not on file Sexual [...] Description 02/12/2025 11:30 AM CDT Office Visit [place] [facility] eld [address] [place] [address] Jun Oscar, BOAT TENDER [address] [place] [address] documented as of this encounter Visit Diagnoses Not on filedocumented in this encounter Care Teams Highway Maintenance Worker Relationship Specialty Start Date End Date Davin Estrada MD [address] [facility] [address] [place], [place] [address] PCP - General FAMILY PRACTICE 04/12/23 Lee Villaseñor MD [address] [address] [address] [place] [address] Consulting Physician INTERNAL MEDICINE 05/28/23 Darell Garcia MD [address] [facility] [address] [address] Consulting Physician CLINICAL CARDIAC ELECTROPHYSIOLOGY 02/08/24 Jun Oscar NP [address] [place], [place] [address] Nurse Practitioner NURSE PRACTITIONER 02/08/24 Judah House MD [address] [place], [place] [address] Consulting Physician INTERVENTIONAL CARDIOLOGY 02/12/24 documented as of this encounter
--- OUTSIDE RECORDS SUMMARY | 2024-07-04 13:02 | XMS_ITS | Encounter Summary ---
Author Organization [facility] Address [facility] [place] [address] Care Team Providers Care Concrete Form Setter And Finisher Name Role Phone Davin Estrada MD Primary Care Provider [phone] Lee Villaseñor MD Unavailable Darell Garcia MD Unavailable [phone] Jun Oscar NP Unavailable [phone] Judah House MD Unavailable [phone] Encounter Details Date Type Department Care Team (Late st Contact Info) Description 08/10/2023 MyChart Message Enc [place] [facility] [address] [place] [address] Darell Garcia MD [address] [facility] [address] [address] September 12 Echo Social History Tobacco Use Types Packs/Day Years Used Date Smoking Tobacco: Never Passive Smoke Exposure: Never Smokeless Tobacco: Never Alcohol Use Standard Drinks/Week Comments Not Currently 0 (1 standard drink = 0.6 oz pur e alcohol) occasional wine C Utilities Answer Date Recorded In the past 12 months has [employer], gas, oil, or water [employer] threatened to shut off services in your [...] and heating? Not hard at all 06/06/2023 [facility] of Occupat ional Health - Occupational [...] file Legal Sex Female 3:10 PM DIRECTOR ACUTE Gender Identity Not on file Sexual Orientation [...] [facility] [place] [facility] eld [address] [place] [address] Jun Oscar, DATA MODELING ARCHITECT [address] [place] [address] documented as of this encounter Goals Goal Patient Goal Type Associated Problems Recent Progress Patient-Stated? Author Patient will return to prior living situation and remain independent in ADLs upon discharge from hospital Lifestyle No Shanel Haynes RN documented as of this encounter Visit Diagnoses Not on filedocumented in this encounter Care Teams Concrete Form Setter And Finisher Relationship Specialty Start Date End Date Davin Estrada MD [address] [address] [address] [place] [address] PCP - General FAMILY PRACTICE 04/12/23 Lee Villaseñor MD [address] [address] [address] [place] [address] Consulting Physician INTERNAL MEDICINE 05/28/23 Darell Garcia MD [address] [facility] [address] [place], [place] [address] Consulting Physician CLINICAL CARDIAC ELECTROPHYSIOLOGY 02/08/24 Jun Oscar NP [address] [place], [place] [address] Nurse Practitioner NURSE PRACTITIONER 02/08/24 Judah House MD [address] [place], [place] 45[address] Consulting Physician INTERVENTIONAL CARDIOLOGY 02/12/24 documented as of this encounter
--- OUTSIDE RECORDS SUMMARY | 2024-07-04 13:02 | XMS_ITS | Encounter Summary ---
Author Organization [facility] Address [facility] [place] [address] Care Team Providers Care Teacher Name Role Phone Davin Estrada MD Primary Care Provider Lee Villaseñor MD Unavailable [id number] Alvarez MD Unavailable [phone] Jun Oscar FORCE VARIATION EQUIPMENT TENDER Unavailable [phone] Judah House MD Unavailable [phone] Encounter Details Date Type Department Care Team (Late st Contact Info) Description 07/24/2023 MyChart Message Enc [place] [facility] eld [address] [place] [address] Judah House MD [address] [facility] [address] [place] [address] heart rehab Social History Tobacco Use Types Packs/Day Years Used Date Smoking Tobacco: Never Passive Smoke Exposure: Never Smokeless Tobacco: Never Alcohol Use Standard Drinks/Week Comments Not Currently 0 (1 standard drink = 0.6 oz pur e alcohol) occasional wine [facility] Utilities Answer Date Recorded In the past 12 months has [employer], gas, oil, or water company threatened [...] and heating? Not hard at all 06/06/2023 [facility] of Occupat [facility] - Occupational Stress Questionnaire Answer Date Recorded [...] on file Legal Sex Female 3:10 PM FORM SETTER/DRIVER Gender Identity Not on file Sexual Orientation [...] 02/12/2025 11:30 AM CDT Office Visit [facility] el[facility] [address] [place] [address] Jun Oscar, FORCE VARIATION EQUIPMENT TENDER [address] [place] [address] documented as of this encounter Goals Goal Patient Goal Type Associated Problems Recent Progress Patient-Stated? Author Patient will return to prior living situation and remain independent in ADLs upon discharge from hospital Lifestyle No Shanel Haynes RN documented as of this encounter Visit Diagnoses Not on filedocumented in this encounter Care Teams Teacher Relationship Specialty Start Date End Date Davin Estrada MD [address] [address] [address] [place] [address] PCP - General FAMILY PRACTICE 04/12/23 Lee Villaseñor MD [address] [address] [address] [place] [address] Consulting Physician INTERNAL MEDICINE 05/28/23 Darell Garcia MD 9 [facility] [address] Consulting Physician CLINICAL CARDIAC ELECTROPHYSIOLOGY 02/08/24 Jun Oscar NP [address] [place] [address] Nurse Practitioner NURSE PRACTITIONER 02/08/24 Judah House MD [address] [place] [address] Consulting Physician INTERVENTIONAL CARDIOLOGY 02/12/24 documented as of this encounter
--- OUTSIDE RECORDS SUMMARY | 2024-07-04 13:02 | XMS_ITS | Encounter Summary ---
Author Organization [facility] Address [facility] [place] [address] Care Team Providers Care Atomic Process Engineer Name Role Phone Davin Estrada MD Primary Care Provider Lee Villaseñor MD Unavailable [id number]-XovilDarell Alvarez MD Unavailable [phone] Jun Oscar WOOD REPATCHER Unavailable [phone] Judah House MD Unavailable Encounter Details Date Type Department Care Team (Late st Contact Info) Description 08/10/2023 Colizerhart Message Enc [place] [facility] eld [address] [place] [address] Judah House MD [address] [facility] [address] [place] [address] Airplane Social History Tobacco Use Types Packs/Day Years Used Date Smoking Tobacco: Never Passive Smoke Exposure: Never Smokeless Tobacco: Never Alcohol Use Standard Drinks/Week Comments Not Currently 0 (1 standard drink = 0.6 oz pur e alcohol) occasional wine [facility] Utilities Answer Date Recorded In the past 12 months has [employer], gas, oil, or water company threatened [...] and heating? Not hard at all 06/06/2023 [facility] of Occupat [facility] - Occupational Stress Questionnaire Answer Date Recorded [...] on file Legal Sex Female 3:10 PM FILTER PRESS TENDER Gender Identity Not on file Sexual [...] [facility] eld [address] [place] [address] Jun Oscar, WOOD REPATCHER [address] [place] [address] documented as of this encounter Goals Goal Patient Goal Type Associated Problems Recent Progress Patient-Stated? Author Patient will return to prior living situation and remain independent in ADLs upon discharge from hospital Lifestyle No Shanel Haynes RN documented as of this encounter Visit Diagnoses Not on filedocumented in this encounter Care Teams Atomic Process Engineer Relationship Specialty Start Date End Date Davin Estrada MD [address] [address] [address] [place] [address] PCP - General FAMILY PRACTICE 04/12/23 Lee Villaseñor MD [address] [address] [address] [place] [address] Consulting Physician INTERNAL MEDICINE 05/28/23 Darell Garcia MD 9 [facility] [address] [place] [address] Consulting Physician CLINICAL CARDIAC ELECTROPHYSIOLOGY 02/08/24 Jun Oscar NP 9 [place] [address] Nurse Practitioner NURSE PRACTITIONER 02/08/24 Judah House MD 9 [place] [address] Consulting Physician INTERVENTIONAL CARDIOLOGY 02/12/24 documented as of this encounter
--- OUTSIDE RECORDS SUMMARY | 2024-07-04 13:02 | XMS_ITS | Clinical Summary ---
Author Organization [facility] Address [address] [place] [address] Phone Care Team Providers Care Personal Service Representative Name Role Phone Davin Estrada MD Primary Care Provider [phone] Allergies No known active allergies Medications amitriptyline [...] 82 12/18/2022 10:32 AM CDT Temperature 36.2 C (97.2 F) 12/18/2022 10:32 AM CDT Respiratory Rate 16 12/18/2022 10:32 AM CDT [...] 01/31/2021, 01/19/2020, Additional history exists SARS-COV-2 Immunization ( season) 2023 01/16/2022, 07/28/2021, 02/14/2021, Additional history exists Pneumococcal [...] this topic Medical Devices Implanted Type Area Safe Deposit Attendant Device Identifier Shelf Expiration Date Model / Serial / Lot [employer] Char[employer] Tecnis 1 Piece Iol Implanted:Qty: 1 on 11/13/2022 by Neftali Malagon MD at [facility] Left: Eye [employer] 08/04/2025 [id number] / [id number] / [id number] [employer]is 1-Piece Iol With Simplicity Delivery System Implanted:Qty: 1 on 12/18/2022 by Neftali Malagon MD at [facility] Right: Eye 02/21/2025 [id number] / [id number] / [id number] Insurance MEDICARE [facility] Care Teams Personal Service Representative Relationship Specialty Start Date End Date Davin Estrada MD [address] [address] PCP - General Family Medicine 11/13/22
--- OUTSIDE RECORDS SUMMARY | 2024-07-04 13:02 | XMS_ITS | Encounter Summary ---
Author Organization [facility] Address [facility]6 [place] [address] Care Team Providers Care Director Of Market Analysis Name Role Phone Davin Estrada MD Primary Care Provider [phone] Lee Villaseñor MD Unavailable [id number] Silver MD Unavailable [phone] Jun Oscar RETURNED GOODS RECEIVING CLERK Unavailable [phone] Judah House MD Unavailable Encounter Details Date Type Department Care Team (Late st Contact Info) Description 06/12/2024 Energie Etiche Message Enc [place] [facility] [address] [place] [address] Judah House MD [address] [facility] [address] [place] [address] Prescription refil Social History Tobacco Use Types Packs/Day Years Used Date Smoking Tobacco: Never Passive Smoke Exposure: Never Smokeless Tobacco: Never Alcohol Use Standard Drinks/Week Comments Not Currently 0 (1 standard drink = 0.6 oz pur e alcohol) occasional wine [facility] Utilities Answer Date Recorded In the past 12 months has [employer], gas, oil, or water company threatened [...] all 06/06/2023 [facility] of Occupat [facility] - Occupational Stress Questionnaire Answer Date Recorded [...] on file Legal Sex Female 3:10 PM RAILROAD CARMAN Gender Identity Not on file Sexual Orientation [...] 02/12/2025 11:30 AM CDT Office Visit [place] [facility] eld [address] [place] [address] Jun Oscar, RETURNED GOODS RECEIVING CLERK [address] [place] [address] documented as of this encounter Goals Goal Patient Goal Type Associated Problems Recent Progress Patient-Stated? Author Patient will return to prior living situation and remain independent in ADLs upon discharge from hospital Lifestyle No Shanel Haynes RN documented as of this encounter Visit Diagnoses Not on filedocumented in this encounter Care Teams Director Of Market Analysis Relationship Specialty Start Date End Date Davin Estrada MD [address] [address] [address] [place] [address] PCP - General FAMILY PRACTICE 04/12/23 Lee Villaseñor MD [address] [address] [address] [place] [address] Consulting Physician INTERNAL MEDICINE 05/28/23 Darell Garcia MD 9 [facility] [address] [place] [address] Consulting Physician CLINICAL CARDIAC ELECTROPHYSIOLOGY 02/08/24 Jun Oscar NP 9 [place] [address] Nurse Practitioner NURSE PRACTITIONER 02/08/24 Judah House MD [address] [place] [address] Consulting Physician INTERVENTIONAL CARDIOLOGY 02/12/24 documented as of this encounter
== END 2024-07-04 12:55 | disposition home or self-care (01) ==
LOC: ANHIMG 12:56
PROVIDERS: PCP Family Medicine; Visit Provider Family Medicine
DX: M25.451 Effusion, right hip (principal)
CPT/HCPCS: 76882